=== PATIENT | female | born 1985 | race Caucasian/White ===

== ENCOUNTER 2023-04-15 08:32 | Outpatient (RCR) | payer BC, SELFPAY ==
[2023-04-15 22:58] LABS: HCG Quantitative 10411 mIU/mL
[2023-04-17 10:32] LABS: HCG Quantitative 17710 mIU/mL
== END 2023-05-13 16:01 | disposition home or self-care (01) ==
LOC: LAB 08:32
PROVIDERS: Visit Provider Obstetrics & Gynecology
DX: N92.6 Irregular menstruation, unspecified (principal)
CPT/HCPCS: 36415; 84702

== ENCOUNTER 2023-05-01 10:06 | Outpatient (OUT) | payer BC, SELFPAY ==
--- NOTE | 2023-05-01 10:09 | US_ITS ---
[address] [address] Patient Name: BONILLA KUMAR MRN: [id number] date: 1985 Sex: F Assigned Patient Location: US Current Patient Location: US Accession/Order Number: [id number] Exam Date: 05/01/2023 10:09 Report Date: 05/01/2023 11:06 At the request of: MOUNA ASENCIO Procedure: US OB transvaginal EXAMINATION: US OB transvaginal HISTORY: MISSED PERIOD COMPARISON: No relevant comparison available. FINDINGS: GESTATIONAL SAC: Present. YOLK SAC: Present. POLE: Present, with questionable nuchal thickening (2 mm). CARDIAC: Present. UTERUS: Normal size and appearance. OVARIES: Right: Normal. Left: Normal. CERVIX: 5 cm in length and closed. CUL-DE-SAC: Normal. OTHER: None. AGE BY LMP: 7 weeks 4 days LEON BY LMP: 12/14/2023 AGE BY US CRL: 8 weeks 1 day LEON BY US CRL: 12/10/2023 IMPRESSION: 1. Single live intrauterine . 2. Additional nuchal thickening. Follow-up recommended. Electronically authenticated by: LUIS MANUEL VEGA Date: 05/01/2023 11:06
== END 2023-05-01 10:07 | disposition home or self-care (01) ==
LOC: US 10:07
PROVIDERS: Visit Provider Obstetrics & Gynecology
DX: Z34.91 Encounter for supervision of normal pregnancy, unspecified, first trimester (principal); Z3A.08 8 weeks gestation of pregnancy; N92.6 Irregular menstruation, unspecified
CPT/HCPCS: 76817

== ENCOUNTER 2023-06-02 12:39 | Outpatient (OUT) | payer BC, SELFPAY ==
[2023-06-02 13:17] LABS: Basophils Percent Auto 0.4 % (0.2-2.0); Eosinophils Absolute Auto 0.2 10^3/uL (0.0-0.7); Eosinophils Percent Auto 2.1 % (0.9-7.0); Hematocrit 35.3 % (36.0-48.0); Hemoglobin 11.9 g/dL (12.0-16.0); Immature Granulocytes Abs Auto 0.02 10^3/uL (0.00-0.03); Immature Granulocytes Pct Auto 0.2 % (0.0-0.5); Lymphocytes Absolute Auto 1.6 10^3/uL (1.2-3.8); Lymphocytes Percent Auto 19.3 % (20.5-60.0); Mean Corpuscular HGB Conc 33.7 g/dL (29.9-35.2); Mean Corpuscular Hemoglobin 29.7 pg (26.7-34.0); Mean Platelet Volume 9.4 fL (9.5-13.5); Monocytes Absolute Auto 0.4 10^3/uL (0.3-0.8); Monocytes Percent Auto 4.3 % (1.7-12.0); Neutrophils Percent Auto 73.7 % (43.0-75.0); Platelet Count 220 10^3/uL (150-450); Red Blood Count 4.01 10^6/uL (4.20-5.40); Red Cell Distribution Width 14.4 % (11.0-15.0); White Blood Count 8.1 10^3/uL (4.0-11.0)
[2023-06-02 14:02] LABS: Thyroid Stimulating Hormone 1.933 uIU/mL (0.358-3.740)
[2023-06-02 14:48] LABS: Estimated Average Glucose 94 mg/dL; Glycohemoglobin A1C 4.9 % (4.5-6.2)
[2023-06-03 06:14] LABS: HBsAg Screen Negative (Negative)
[2023-06-03 10:14] LABS: Rubella Antibodies, IgG 2.41 index (Immune >0.99)
[2023-06-03 11:23] LABS: Rapid Plasma Reagin, Quant Non Reactive (NonRea<1:1)
[2023-06-04 08:32] LABS: HCV Ab Non Reactive (Non Reactive); HIV Ab/p24 Ag Screen Non Reactive (Non Reactive)
== END 2023-06-02 12:40 | disposition home or self-care (01) ==
LOC: LAB 12:41
PROVIDERS: Visit Provider Obstetrics & Gynecology
DX: Z34.80 Encounter for supervision of other normal pregnancy, unspecified trimester (principal); Z31.430 Encounter of female for testing for genetic disease carrier status for procreative management
CPT/HCPCS: 36415; 83036; 84443; 85025; 86592; 86706; 86762; 86803; 86850; 86900; 86901; 87086; 87389

== ENCOUNTER 2023-09-23 13:12 | Outpatient (OUT) | payer BC, SELFPAY ==
--- NOTE | 2023-09-23 13:18 | US_ITS ---
The [address] [address] Patient Name: BONILLA KUMAR MRN: [id number] date: 1985 Sex: F Assigned Patient Location: US Current Patient Location: US Accession/Order Number: [id number] Exam Date: 09/23/2023 13:19 Report Date: 09/23/2023 23:58 At the request of: MOUNA ASENCIO Procedure: US OB growth EXAMINATION: US OB growth HISTORY: SIZE INCONSISTENT WITH DATES COMPARISON: No relevant comparison available. FINDINGS: Heart Rate: 151.0 bpm Number: 1.0 Position: CEPHALIC Amniotic Fluid Volume: 21.9 cm (between 5th and 95th percentile) Maximum Vertical Pocket: 7.9 cm BIOMETRY: BPD: 7.8 cm cm; 31 weeks 2 days; >97% HC: 27.4 cmcm; 30 weeks 0 days ; 71% AC: 25.0 cm cm; 29 weeks 1 days; 71% FL: 5.4 cm cm; 28 weeks 5 days; 48% EFW: 1362.2 grams; 75% FL/AC: 21.7 FL/BPD: 69.7 HC/AC: 1.1 GESTATIONAL AGE: Age by EDC: 28 weeks 2 days LEON by EDC: 12/14/2023 Age by US: 29 weeks 6 days LEON by US: 12/03/2023 US/US OB growth IMPRESSION: 1. Single live intrauterine with growth detailed above. 2. BPD is greater than 97th percentile. Electronically authenticated by: LUIS MANUEL VEGA Date: 09/23/2023 23:58
== END 2023-09-23 13:13 | disposition home or self-care (01) ==
LOC: US 13:12
PROVIDERS: Visit Provider Obstetrics & Gynecology
DX: O26.843 Uterine size-date discrepancy, third trimester (principal); Z3A.28 28 weeks gestation of pregnancy
CPT/HCPCS: 76816

== ENCOUNTER 2023-09-24 08:13 | Outpatient (OUT) | payer BC, SELFPAY ==
[2023-09-24 09:04] LABS: Basophils Percent Auto 0.3 % (0.2-2.0); Eosinophils Absolute Auto 0.1 10^3/uL (0.0-0.7); Eosinophils Percent Auto 1.4 % (0.9-7.0); Hematocrit 28.4 % (36.0-48.0); Hemoglobin 9.1 g/dL (12.0-16.0); Immature Granulocytes Abs Auto 0.02 10^3/uL (0.00-0.03); Immature Granulocytes Pct Auto 0.3 % (0.0-0.5); Mean Corpuscular Hemoglobin 29.7 pg (26.7-34.0); Mean Corpuscular Volume 92.8 fL (81.0-99.0); Monocytes Absolute Auto 0.4 10^3/uL (0.3-0.8); Neutrophils Absolute Auto 5.8 10^3/uL (1.4-6.5); Platelet Count 161 10^3/uL (150-450); Red Blood Count 3.06 10^6/uL (4.20-5.40); Red Cell Distribution Width 12.4 % (11.0-15.0); White Blood Count 7.4 10^3/uL (4.0-11.0)
[2023-09-24 09:41] LABS: Glucose 1 Hour 120 mg/dL
== END 2023-09-24 08:14 | disposition home or self-care (01) ==
LOC: LAB 08:13
PROVIDERS: Visit Provider Obstetrics & Gynecology
DX: Z34.92 Encounter for supervision of normal pregnancy, unspecified, second trimester (principal)
CPT/HCPCS: 36415; 82950; 85025

== ENCOUNTER 2023-10-20 07:34 | Outpatient (OUT) | payer BC, SELFPAY ==
--- NOTE | 2023-10-20 08:58 | US_ITS ---
[address] [address] Patient Name: BONILLA KUMAR MRN: [id number] date: 1985 Sex: F Assigned Patient Location: US Current Patient Location: Accession/Order Number: [id number] Exam Date: 10/20/2023 09:25 Report Date: 10/20/2023 11:14 At the request of: MOUNA ASENCIO Procedure: US OB BPP w non-stress EXAMINATION: US OB BPP w non-stress HISTORY: Multigravida of advanced maternal age O09.523 COMPARISON: No relevant comparison available. TECHNIQUE: Ultrasound biophysical profile was performed in the radiology department. non-reactive stress testing was performed by nursing staff in the birthing center. FINDINGS: BREATHING MOVEMENTS: 2.0 GROSS BODY MOVEMENTS: 2.0 TONE: 2.0 QUALITATIVE AMNIOTIC FLUID VOLUME: 2.0 PRESENTATION: CEPHALIC HEART RATE: 155.2 bpm H.B./min AMNIOTIC FLUID VOLUME: 20.7 cm cm GESTATIONAL AGE: 32 weeks 1 days CONCLUSION: Total biophysical profile score: 8.0 Electronically authenticated by: ERROL VELA Date: 10/20/2023 11:14
--- NOTE | 2023-10-20 08:59 | US_ITS ---
[address] [address] Patient Name: BONILLA KUMAR MRN: [id number] date: 1985 Sex: F Assigned Patient Location: Current Patient Location: Accession/Order Number: [id number] Exam Date: 10/20/2023 09:25 Report Date: 10/20/2023 12:05 At the request of: MOUNA ASENCIO Procedure: US OB umbilical artery EXAMINATION: US OB umbilical artery HISTORY: Multigravida of advanced maternal age O09.523 COMPARISON: No relevant comparison available. TECHNIQUE: Duplex Doppler evaluation of the umbilical arteries. FINDINGS: position: Cephalic presentation, longitudinal lie Umbilical arteries: 2 Placenta: Posterior Heart rate: 133 beats minute Clinical age: 32 weeks 1 day Clinical LEON: 12/14/2023 Proximal umbilical artery PSV/EDV centimeters per second: 80.1/34. Resistive index 0.58, S/D ratio 2.4 Mid umbilical artery PSV/EDV centimeters per second: 99.9/47.2. Resistive index 0.53. S/D ratio 2.1 Distal umbilical artery PSV/EDV centimeters per second: 84.5/27.4. Resistive index 0.68. S/D ratio 3.1 Forward flow throughout diastole US/US OB umbilical artery IMPRESSION: Class 0. Normal exam Umbilical Artery: Class 0 = Normal umbilical artery blood velocity Class I = increased RI or PI, but still forward flow in diastole Class II = Absent end diastolic flow (AEDF) Class III = Reversal of end diastolic flow (REDF) Resistive Index (RI)<1 Systolic/Diastolic ratio (S:D): An S:D ratio of 2-3 after 34 wks is normal Systolic/Diastolic ratio (S:D): Age 16: 3.01 for the 10th percentile, 4.25 for the 50th percentile, 6.07 for the 90th percentile Age 20: 3.16 for the 10th percentile, 4.04 for the 50th percentile, 5.24 for the 90th percentile Age 24: 2.70 for the 10th percentile, 3.50 for the 50th percentile, 4.75 for the 90th percentile Age 28: 2.41 for the 10th percentile, 3.02 for the 50th percentile, 3.97 for the 90th percentile Age 30: 2.43 for the 10th percentile, 3.04 for the 50th percentile, 3.80 for the 90th percentile Age 32: 2.27 for the 10th percentile, 2.73 for the 50th percentile, 3.57 for the 90th percentile Age 34: 2.08 for the 10th percentile, 2.52 for the 50th percentile, 3.41 for the 90th percentile Age 36: 1.96 for the 10th percentile, 2.35 for the 50th percentile, 3.15 for the 90th percentile Age 38: 1.89 for the 10th percentile, 2.24 for the 50th percentile, 3.10 for the 90th percentile Age 40: 1.88 for the 10th percentile, 2.22 for the 50th percentile, 2.68 for the 90th percentile Age 41: 1.93 for the 10th percentile, 2.21 for the 50th percentile, 2.55 for the 90th percentile Age 42: 1.91 for the 10th percentile, 2.51 for the 50th percentile, 3.21 for the 90th percentile Uteroplacental Artery: Resistive Index (RI): Normal=<0.55 High Resistance=Bilateral notches (after 26 wks) and RI>0.55. Unilateral notches (after 26 wks) and RI>0.65 Systolic/Diastolic ratio (S:D) = 2-3 is normal after 32 weeks. Electronically authenticated by: ERROL VELA Date: 10/20/2023 12:05
[2023-10-20 09:10] VITALS: BP 109/66; PULSE 86
== END 2023-10-20 10:10 | disposition home or self-care (01) ==
LOC: US 07:35 → FBC 08:57
PROVIDERS: Visit Provider Obstetrics & Gynecology
DX: O09.523 Supervision of elderly multigravida, third trimester (principal); Z3A.32 32 weeks gestation of pregnancy
CPT/HCPCS: 76818; 76820

== ENCOUNTER 2023-10-23 07:05 | Outpatient (OUT) | payer BC, SELFPAY ==
[2023-10-23 14:14] VITALS: BP 117/65; PULSE 99; TEMP 36.2
== END 2023-10-23 14:36 | disposition home or self-care (01) ==
LOC: FBCO 07:06 → FBC 14:04
PROVIDERS: Visit Provider Obstetrics & Gynecology
DX: O26.849 Uterine size-date discrepancy, unspecified trimester (principal); O09.523 Supervision of elderly multigravida, third trimester
CPT/HCPCS: 59025

== ENCOUNTER 2023-10-27 07:46 | Outpatient (OUT) | payer BC, SELFPAY ==
--- NOTE | 2023-10-27 07:50 | US_ITS ---
[address] [address] Patient Name: BONILLA KUMAR MRN: [id number] date: 1985 Sex: F Assigned Patient Location: [facility] Current Patient Location: [facility] Accession/Order Number: [id number] Exam Date: 10/27/2023 07:55 Report Date: 10/27/2023 08:28 At the request of: MOUNA ASENCIO Procedure: US OB BPP w non-stress EXAMINATION: US OB BPP w non-stress HISTORY: Multigravida of advanced maternal age O09.523 COMPARISON: No relevant comparison available. TECHNIQUE: Ultrasound biophysical profile was performed in the radiology department. non-reactive stress testing was performed by nursing staff in the birthing center. FINDINGS: BREATHING MOVEMENTS: 2.0 GROSS BODY MOVEMENTS: 2.0 TONE: 2.0 QUALITATIVE AMNIOTIC FLUID VOLUME: 2.0 PRESENTATION: CEPHALIC HEART RATE: 139.9 bpm H.B./min AMNIOTIC FLUID VOLUME: 15.0 cm cm GESTATIONAL AGE: 33 weeks 1 days CONCLUSION: Total biophysical profile score: 8.0 Electronically authenticated by: ERROL VELA Date: 10/27/2023 08:28
--- NOTE | 2023-10-27 07:51 | US_ITS ---
[address] [address] Patient Name: BONILLA KUMAR MRN: [id number] date: 1985 Sex: F Assigned Patient Location: [facility] Current Patient Location: Accession/Order Number: [id number] Exam Date: 10/27/2023 07:55 Report Date: 10/27/2023 10:39 At the request of: MOUNA ASENCIO Procedure: US OB umbilical artery EXAMINATION: US OB umbilical artery HISTORY: Multigravida of advanced maternal age O09.523 COMPARISON: No relevant comparison available. TECHNIQUE: Duplex Doppler evaluation of the umbilical arteries. FINDINGS: position: Cephalic presentation, longitudinal lie Umbilical arteries: 2 Amniotic fluid: 15.0 cm, normal Heart rate: 132 BPM Proximal umbilical artery: PSV/EDV: 115/35 cm/s resistive index 0.7. Ratio: 3.3 Mid umbilical artery PSV/EDV: 87/36 cm/s. Resistive index 0.55. Ratio 2.4 Distal umbilical artery PSV/EDV: 87/37 cm/s. Resistive index 0.57. Ratio 2.3 Forward flow identified throughout diastole Clinical age: 33 weeks 1 day US/US OB umbilical artery IMPRESSION: Normal exam. Class 0 Umbilical Artery: Class 0 = Normal umbilical artery blood velocity Class I = increased RI or PI, but still forward flow in diastole Class II = Absent end diastolic flow (AEDF) Class III = Reversal of end diastolic flow (REDF) Resistive Index (RI)<1 Systolic/Diastolic ratio (S:D): An S:D ratio of 2-3 after 34 wks is normal Systolic/Diastolic ratio (S:D): Age 16: 3.01 for the 10th percentile, 4.25 for the 50th percentile, 6.07 for the 90th percentile Age 20: 3.16 for the 10th percentile, 4.04 for the 50th percentile, 5.24 for the 90th percentile Age 24: 2.70 for the 10th percentile, 3.50 for the 50th percentile, 4.75 for the 90th percentile Age 28: 2.41 for the 10th percentile, 3.02 for the 50th percentile, 3.97 for the 90th percentile Age 30: 2.43 for the 10th percentile, 3.04 for the 50th percentile, 3.80 for the 90th percentile Age 32: 2.27 for the 10th percentile, 2.73 for the 50th percentile, 3.57 for the 90th percentile Age 34: 2.08 for the 10th percentile, 2.52 for the 50th percentile, 3.41 for the 90th percentile Age 36: 1.96 for the 10th percentile, 2.35 for the 50th percentile, 3.15 for the 90th percentile Age 38: 1.89 for the 10th percentile, 2.24 for the 50th percentile, 3.10 for the 90th percentile Age 40: 1.88 for the 10th percentile, 2.22 for the 50th percentile, 2.68 for the 90th percentile Age 41: 1.93 for the 10th percentile, 2.21 for the 50th percentile, 2.55 for the 90th percentile Age 42: 1.91 for the 10th percentile, 2.51 for the 50th percentile, 3.21 for the 90th percentile Uteroplacental Artery: Resistive Index (RI): Normal=<0.55 High Resistance=Bilateral notches (after 26 wks) and RI>0.55. Unilateral notches (after 26 wks) and RI>0.65 Systolic/Diastolic ratio (S:D) = 2-3 is normal after 32 weeks. Electronically authenticated by: ERROL VELA Date: 10/27/2023 10:39
[2023-10-27 08:16] VITALS: BP 120/70; PULSE 97; TEMP 36.4
== END 2023-10-27 08:37 | disposition home or self-care (01) ==
LOC: US 07:46 → FBC 07:51
PROVIDERS: Visit Provider Obstetrics & Gynecology
DX: O09.523 Supervision of elderly multigravida, third trimester (principal); Z3A.33 33 weeks gestation of pregnancy
CPT/HCPCS: 76818; 76820

== ENCOUNTER 2023-10-30 07:04 | Outpatient (OUT) | payer BC, SELFPAY ==
--- OUTSIDE RECORDS SUMMARY | 2023-10-30 07:07 | XMS_ITS | CCD ---
Author Name Unknown Address [address] [place] [address] Organization [facility] Care Team Providers Care Prosthetics Lab Technician Name Role Phone DEVIN LAM Primary Care Physician Devin Lam Unavailable LUIS M ., DR FREIRE Attending Unavailable LUIS M ., DR FREIRE Consulting Unavailable LUIS M ., DR FREIRE Primary Care Unavailable LUIS M ., DR FREIRE Admitting Unavailable LUIS M ., DR FREIRE Attending Unavailable LUIS M ., DR FREIRE Admitting Unavailable LUIS M ., DR FREIRE Consulting Unavailable LUIS M ., DR FREIRE Primary Care Unavailable ZIEBER, DR LUIS MANUEL Andrade Consulting Unavailable LUIS M ., DR FREIRE Attending Unavailable LUIS M ., DR FREIRE Primary Care Unavailable LUIS M ., DR FREIRE Consulting Unavailable LUIS M ., DR FREIRE Admitting Unavailable LUIS M ., DR FREIRE Attending Unavailable LUIS M ., DR FREIRE Admitting Unavailable LUIS M ., DR FREIRE Primary Care Unavailable LUIS M ., DR FREIRE Consulting Unavailable LUIS M ., DR FREIRE Consulting Unavailable LUIS M ., DR FREIRE Primary Care Unavailable LUIS M ., DR FREIRE Admitting Unavailable LUIS M ., DR FREIRE Attending Unavailable LUIS M ., DR FREIRE Admitting Unavailable LUIS M ., DR FREIRE Attending Unavailable LUIS M ., DR FREIRE Consulting Unavailable LUIS M ., DR FREIRE Primary Care Unavailable LUIS M ., DR FREIRE Attending Unavailable LUIS M ., DR FREIRE Primary Care Unavailable LUIS M ., DR FREIRE Admitting Unavailable LUIS M ., DR FREIRE Consulting Unavailable LUIS M ., DR FREIRE Primary Care Unavailable LUIS M ., DR FREIRE Attending Unavailable LUIS M ., DR FREIRE Admitting Unavailable LUIS M ., DR FREIRE Consulting Unavailable RUCHI FRANK Consulting Unavailable KIMMY MALIK Consulting Unavailable EMMANUEL KHAN Consulting Unavailable HIGINIO LEDESMA Consulting Unavailable ARACELI MCKENZIE Attending Unavailable MOUNA ANGEL Attending Unavailable MOUNA ANGEL Attending Unavailable MOUNA ANGEL Attending Unavailable Allergies Allergy Classification Reported Allergen(s) Allergy Type Date of Onset Reaction(s) Facility (12 sources) Acetaminophen / HYDROcodone; Translations: [acetaminophen-hy drocodone] Drug Allergy Nausea (finding) [facility] (13 sources) Banana Extract; Translations: [Banana] Drug Allergy 09-10-20 20 Itching (finding) [facility] (8 sources) Melon; Translations: [melon] Drug allergy 09-10-20 Itching (finding) [facility] (5 sources) Melon Propensity to adverse reactions Unknown [employer] Other (1 source) Acetaminophen / HYDROcodone Drug Allergy 09-10-20 20 [facility] (1 source) Acetaminophen / HYDROcodone; Translations: [HYDROCODONE-ACET AMINOPHEN] Drug Allergy 04-10-20 21 [facility] Medications Current Medications Medication Drug Class(es) Dates Sig (Normalized) Sig (Original) acetaminophen 300 mg / codeine phosphate 30 mg oral tablet (4 sources) Opioid Agonist Start: 03-09-2015 Tylenol with Codeine 300 mg-30 mg Tab 1 tab(s), Oral, q4hr Pain - Mild, 30 tab(s), Refill(s) 0 Start Date: 03/09/15 Status: Ordered amoxicillin 500 mg oral capsule (4 sources) Penicillin-class Antibacterial Start: 02-25-2022 End: 05-26-2022 take 1 capsule by mouth once daily amoxicillin 500 mg Cap 500 mg = 1 cap(s), Oral, Daily, X 90 day(s), # 90 cap(s), Refills(s) 0, Pharmacy: [facility] [id number] [facility], 162, cm, 02/25/22 14:21:00 EDT, Height/Length Dosing, 75, kg, 02/25/22 14:21:00 EDT, Weight Dosing Start Date: 02/25/22 Stop Date: 05/26/22 Status: Ordered azithromycin 250 mg oral tablet (2 sources) Macrolide Antimicrobial Start: 01-19-2023 Zithromax Z-Higinio 250 MG as directed Orally Jan, Active Calcium (2 sources) Phosphate Binder, Calcium Start: 03-09-2015 Calcium 500+D oral tablet, chewable Refill(s) 0 Start Date: 03/09/15 Status: Ordered cephalexin 500 mg oral capsule (1 source) Cephalosporin Antibacterial Start: 02-04-2022 take 1 capsule by mouth once daily Keflex 500 mg Cap See Instructions, 1 cap po day before procedure and 1 cap po after procedure, # 2 cap(s), Refills(s) 0, Pharmacy: [place] [id number] [facility], 162, cm, 02/04/22 14:57:00 EDT, Height/Length Dosing, 75, kg, 02/04/22 14:57:00 EDT, Weight Dosing Start Date: 02/04/22 Status: Ordered citalopram 20 mg oral tablet (10 sources) Serotonin Reuptake Inhibitor Start: 02-04-2022 take 1 mg by mouth once daily CeleXA 20 mg Tab mg tab(s), Oral, Daily, Refills(s) 0 Start Date: 02/04/22 Status: Ordered take 0.5 tablet by m [facility] every twenty-four hours Citalopram Hydrobromide 20 MG 0.5 tablet Orally Once a day Active Docusate (9 sources) Start: 02-04-2022 take 1 mg by mouth twice daily Dulcolax Stool Softener mg, Oral, BID, Refills(s) 0 Start Date: 02/04/22 Status: Ordered Start: 03-09-2015 take 1 capsule by mo [facility] twice daily as needed for constipation Colace 100 mg Cap 100 mg = 1 cap(s), Oral, BID, PRN Constipation, # 60 cap(s), Refills(s) 2 Start Date: 03/09/15 Status: Ordered {5 (ethinyl estradiol 0.02 MG / norethindrone acetate 1 MG Oral Tablet) / 7 (ethinyl estradiol 0.03 MG / norethindrone acetate 1 MG Oral Tablet) / 9 (ethinyl estradiol 0.035 MG / norethindrone acetate 1 MG Oral Tablet) / 7 (ferrous fumarate 75 MG Oral Tablet) } Pack (2 sources) Estrogen take 1 tablet by mouth every twenty-four hours Norethindron-Ethinyl Estrad-Fe 1-20/1-30/1-35 MG-MCG 1 tablet Orally Once a day Active ferrous sulfate 325 mg oral tablet (4 sources) Start: 2014 take 1 tablet by mouth twice daily ferrous sulfate 325 mg Tab 325 mg = 1 tab(s), Oral, BID, # 60 tab(s), Refills(s) 1 Start Date: 03/11/15 Status: Ordered ibuprofen 600 mg oral tablet (4 sources) Nonsteroidal Anti-inflammatory Drug Start: 2014 take 1 tablet by mouth every four hours as needed for pain Motrin 600 mg Tab 600 mg = 1 tab(s), Oral, q4hr, PRN Pain, # 60 tab(s), Refills(s) 2 Start Date: 03/09/15 Status: Ordered Multi Vitamin+ (5 sources) Start: 2021 Multi Vitamin+ Refill(s) 0 Start Date: 02/03/22 Status: Ordered nitrofurantoin, macrocrystals 25 mg / nitrofurantoin, monohydrate 75 mg oral capsule (6 sources) Nitrofuran Antibacterial Start: 2021 take 1 mg by mouth twice daily Macrobid 100 mg Cap mg cap(s), Oral, BID, Refills(s) 0 Start Date: 06/25/22 Status: Ordered take 1 capsule by mo [facility] once daily at bedtime Macrobid 100 MG 1 capsule at bedtime wit h food Orally Once a day Active Norethindron-Ethinyl Estrad-Fe 1-20/1-30/1-35 MG-MCG (3 sources) take 1 tablet by mouth once daily Norethindron-Ethinyl Estrad-Fe 1-20/1-30/1-35 MG-MCG 1 tablet Orally Once a day Active phentermine hydrochloride 37.5 mg oral capsule (7 sources) Sympathomimetic Amine Anorectic Start : 06-25 take 1 capsule by mouth once daily Adipex-P 37.5 mg oral capsule 37.5 mg = 1 cap(s), Oral, Daily, Refills(s) 0 Start Date: 06/25/22 Status: Ordered Start: 06-18-2022 take 1 tablet by nathalie th every twenty-four hours Adipex-P 37.5 MG 1 tablet Orally Once a day for 30 days Jun, Active Start: 05-13-2022 take 1 tablet by nathalie th every twenty-four hours Adipex-P 37.5 MG 1 tablet Orally Once a day for 30 days May, Active Start: 04-16-2022 take 1 tablet by nathalie th every twenty-four hours Adipex-P 37.5 MG 1 tablet Orally Once a day for 30 days Apr, Active Progesterone (5 sources) Progesterone Start: 02-04-2022 take 1 mg by mouth once daily Progesterone (micronized) mg, Oral, Daily, Refills(s) 0 Start Date: 02/04/22 Status: Ordered sulfADIAZINE 500 mg oral tablet (1 source) Sulfonamide Antibacterial sulfADIAZINE 500 MG as directed Orally Active sulfamethoxazole 800 mg / trimethoprim 160 mg oral tablet (2 sources) Dihydrofolate Reductase Inhibitor Antibacterial, Sulfonamide Antimicrobial Start: 04-15-2022 End: 04-25-2022 take 1 tablet by mouth twice daily Bactrim DS 800 mg-160 mg Tab 1 tab(s), Oral, BID for 10 day(s), 20 tab(s), Refill(s) 0, [facility] [id number] [facility], 162, cm, 02/25/22 14:21:00 EDT, Height/Length Dosing, 75, kg, 02/25/22 14:21:00 EDT, Weight Dosing Start Date: 04/15/22 Stop Date: 04/25/22 Status: Ordered Vitafol Ultra oral capsule (4 sources) Start: 03-09-2015 Vitafol Ultra oral capsule 1 cap(s), Oral, Daily, 90 cap(s), Refill(s) 4 Start Date: 03/09/15 Status: Ordered Problems Active Problems Problem Classification Problem Date Documented Date Episodic/Chronic Anxiety disorders (12 sources) Mixed anxiety and depressive disorder; Translations: [Other specified anxiety disorders] Onset: 04-16-2022 Resolved: 06-18-2022 Chronic Calculus of urinary tract (7 sources) Kidney stone; Translations: [Calculus of kidney] Onset: 06-25-2022 02-25-2022 Episodic Cardiac dysrhythmias (10 sources) Tachycardia; Translations: [Tachycardia, unspecified] Onset: 04-16-2022 Resolved: 04-16-2022 02-03-2022 Episodic Disorders of lipid metabolism (5 sources) Hyperlipidemia; Translations: [Hyperlipidemia, unspecified] Chronic Immunizations and screening for infectious disease (2 sources) Encounter for screening for human papillomavirus (HPV); Translations: [Contact with and (suspected) exposure to infections with a predominantly sexual mode of transmission] Onset: 11-14-2022 Episodic Menstrual disorders (4 sources) Amenorrhea, unspecified; Translations: [AMENORRHEA UNSPECIFIED] Onset: 11-12-2022 Chronic Other complications of (5 sources) Missed ; Translations: [MISSED ] Onset: 11-16-2022 Episodic Other female genital disorders (1 source) Other specified noninflammatory disorders of vagina; Translations: [OTH SPEC NONINFLAMMATORY D/O VAGINA] Onset: 11-14-2022 Episodic Other nutritional; endocrine; and metabolic disorders (5 sources) Obesity; Translations: [Obesity, unspecified] Chronic Other nutritional; endocrine; and metabolic disorders (5 sources) Body mass index 30+ - obesity; Translations: [Body mass index (BMI) 30.0-30.9, adult] Chronic Other nutritional; endocrine; and metabolic disorders (3 sources) Obesity, unspecified Onset: 04-16-2022 Resolved: 06-18-2022 Chronic Other nutritional; endocrine; and metabolic disorders (2 sources) Body mass index (BMI) 30.0-30.9, adult Onset: 04-16-2022 Resolved: 05-13-2022 Chronic Other nutritional; endocrine; and metabolic disorders (3 sources) Body mass index 25-29 - overweight; Translations: [Body mass index (BMI) 28.0-28.9, adult] Episodic Other screening for suspected conditions (not mental disorders or infectious disease) (5 sources) Encounter for screening for malignant neoplasm of cervix; Translations: [ENC SCREENING MALIG NEOPLASM CERV] Onset: 11-12-2022 Episodic Otitis media and related conditions (1 source) Acute suppurative otitis media with spontaneous rupture of ear drum, right ear Episodic Residual codes; unclassified (7 sources) Insomnia 02-03-2022 Episodic Residual codes; unclassified (4 sources) Other specified postprocedural states; Translations: [OTH SPECIFIED POSTPROCEDURAL STATES] Onset: 12-19-2022 Episodic Residual codes; unclassified (2 sources) 32 weeks gestation of ; Translations: [32 weeks gestation of ] Onset: 10-23-2023 Episodic Unclassified (4 sources) Streptococcus agalactiae (organism) 03-09-2015 Unclassified (1 source) CONTACT W/AND (SUSP) EXPOS COVID-19; Translations: [CONTACT W/AND (SUSP) EXPOS COVID-19] Onset: 11-16-2022 Urinary tract infections (20 sources) Urinary tract infectious disease; Translations: [Urinary tract infection, site not specified] Onset: 03-06-2022 Resolved: 04-16-2022 Episodic Viral infection (4 sources) Human papilloma virus infection 03-08-2015 Episodic Past or Other Problems Problem Classification Problem Date Documented Da te Episodic/Chronic Other nutritional; endocrine; and metabolic disorders (1 source) Body mass index (BMI) 28.0-28.9, adult Onset: 06-18-2022 Resolved: 06-18-2022 Episodic Other skin disorders (1 source) Epidermal cyst Onset: 05-13-2022 Resolved: 05-13-2022 Episodic Unclassified (4 sources) Onset: 07-10-2014 Resolved: 03-09-2015 05-17-2015 Results Test Name Value Interpretation Reference Range Facility Office Visiton 10-23-2023 Follow-up visit [id number] Jessa Chatman 1985 F Date Provider Department Center 10/23/2023 [facility] No family history on file Level of Service:18612 [place] OFFICE/OUTPATIENT ESTABLISHED MOD MDM 30-39 MIN Normal [facility] PROGRESSon 10-23-2023 Beta HCG ( test) Ql (U) D/w pt risks vs benefits of metoprolol during - Metoprolol has been associated with reduced growth of the baby. It is not clear if this happens because of the metoprolol, the health condition that is being treated, other factors, or a combination of factors. Metoprolol use in late may cause the baby to have symptoms such as slowed heart rate and low blood sugar. She voiced understanding of risks. Normal [facility] PREG QUANT HCGon 12-19-2022 HCG QUANT 5 mIU/mL Normal [facility] Comment on above: Performed By: #### P REGQNT #### [facility] [address] [place] [address] Dr. Fadi Meza HCG RANGE SEE BELOW Normal [facility] Comment on above: Result Comment: 5-50 0.2-1 WEEK 50-500 1-2 WEEKS 100-5,000 2-3 WEEKS 500-10,000 3-4 WEEKS 1,000-50,000 4-5 WEEKS 10,000-100,000 5-6 WEEKS 15,000-200,000 6-8 WEEKS 10,000-100,000 2-3 MONTHS Performed By: #### P REGQNT #### [facility] [address] [place] [address] Dr. Fadi Meza PREG QUANT HCGon 12-05-2022 HCG QUANT 43 mIU/mL Normal [facility] Comment on above: Performed By: #### P REGQNT #### [facility] [address] [place] [address] Dr. Fadi Meza HCG RANGE SEE BELOW Normal [facility] Comment on above: Result Comment: 5-50 0.2-1 WEEK 50-500 1-2 WEEKS 100-5,000 2-3 WEEKS 500-10,000 3-4 WEEKS 1,000-50,000 4-5 WEEKS 10,000-100,000 5-6 WEEKS 15,000-200,000 6-8 WEEKS 10,000-100,000 2-3 MONTHS Performed By: #### P REGQNT #### [facility] [address] [place] [address] Dr. Fadi Meza CBC AUTO DIFFon 11-19-2022 BASO # 0.0 103/ul Normal 0.0-0.1 [facility] Comment on above: Performed By: #### C VDTBH #### [facility] [address] [place] [address] Dr. Fadi Meza Basophils/100 WBC (Bld) 0.7 % Normal 0.2-2.0 [facility] Comment on above: Performed By: #### C VDTBH #### [facility] [address] [place] [address] Dr. Fadi Meza EO # 0.1 103/ul Normal 0.0-0.7 [facility] Comment on above: Performed By: #### C VDTBH #### [facility] [address] [place] [address] Dr. Fadi Meza Eosinophils/100 WBC (Bld) 2.1 % Normal 0.9-7.0 [facility] Comment on above: Performed By: #### C VDTBH #### [facility] [address] [place] [address] Dr. Fadi Meza Erythrocyte distribution width (RBC) [Ratio] 13.7 % Normal 11.0-15.0 [facility] Comment on above: Performed By: #### C VDTBH #### [facility] [address] [place] [address] Dr. Fadi Meza Hematocrit (Bld) [Volume fraction] 36.9 % Normal 36.0-48.0 [facility] Comment on above: Performed By: #### C VDTBH #### [facility] [address] [place] [address] Dr. Fadi Meza Hemoglobin (Bld) [Mass/Vol] 11.8 g/dL Critically low 12.0-16.0 [facility] Comment on above: Performed By: #### C VDTBH #### [facility] [address] [place] [address] Dr. Fadi Meza IG # 0.01 10e3/ul Normal 0.00-0.03 [facility] Comment on above: Performed By: #### C VDTBH #### [facility] [address] [place] [address] Dr. Fadi Meza IG % 0.2 % Normal 0.0-0.5 [facility] Comment on above: Performed By: #### C VDTBH #### [facility] [address] [place] [address] Dr. Fadi Meza LYMPH # 1.3 103/ul Normal 1.2-3.8 [facility] Comment on above: Performed By: #### C VDTBH #### [facility] [address] [place] [address] Dr. Fadi Meza Lymphocytes/100 WBC (Bld) 29.3 % Normal 20.5-60.0 [facility] Comment on above: Performed By: #### C VDTBH #### [facility] [address] [place] [address] Dr. Fadi Meza MANUAL DIFF REQ NO Normal [facility] Comment on above: Performed By: #### C VDTBH #### [facility] [address] [place] [address] Dr. Fadi Meza MCH (RBC) [Entitic mass] 28.4 pg Normal 26.7-34.0 [facility] Comment on above: Performed By: #### C VDTBH #### [facility] [address] [place] [address] Dr. Fadi Meza MCHC (RBC) [Mass/Vol] 32.0 g/dL Normal 29.9-35.2 [facility] Comment on above: Performed By: #### C VDTBH #### [facility] [address] [place] [address] Dr. Fadi Meza MCV (RBC) [Entitic vol] 88.9 fL Normal 81.0-99.0 [facility] Comment on above: Performed By: #### C VDTBH #### [facility] [address] [place] [address] Dr. Fadi Meza MONO # 0.5 103/ul Normal 0.3-0.8 [facility] Comment on above: Performed By: #### C VDTBH #### [facility] [address] [place] [address] Dr. Fadi Meza Monocytes/100 WBC (Bld) 10.6 % Normal 1.7-12.0 [facility] Comment on above: Performed By: #### C VDTBH #### [facility] [address] [place] [address] Dr. Fadi Meza NEUT # 2.5 103/ul Normal 1.4-6.5 [facility] Comment on above: Performed By: #### C VDTBH #### [facility] [address] [address] [address] Fadi Meza Neutrophils/100 WBC (Bld) 57.1 % Normal 43.0-75.0 [facility] Comment on above: Performed By: #### C VDTBH #### [facility] [address] [address] [address] Fadi Meza Platelet mean volume (Bld) [Entitic vol] 9.4 fL Critically low 9.5-13.5 [facility] Comment on above: Performed By: #### C VDTBH #### [facility] [address] [place] [address] Dr. Fadi Meza PLT 210 103/ul Normal 150-450 [facility] Comment on above: Performed By: #### C VDTBH #### [facility] [address] [place] [address] Dr. Fadi Meza RBC 4.15 106/ul Critically low 4.20-5.40 [facility] Comment on above: Performed By: #### C VDTBH #### [facility] [address] [place] [address] Dr. Fadi Meza WBC 4.3 103/ul Normal 4.0-11.0 [facility] Comment on above: Performed By: #### C VDTBH #### [facility] [address] [place] [address] Dr. Fadi Meza PREG QUANT HCGon 11-19-2022 HCG QUANT 79559 mIU/mL Normal [facility] Comment on above: Performed By: #### P REGQNT #### [facility] [address] [place] [address] Dr. Fadi Meza HCG RANGE SEE BELOW Normal [facility] Comment on above: Result Comment: 5-50 0.2-1 WEEK 50-500 1-2 WEEKS 100-5,000 2-3 WEEKS 500-10,000 3-4 WEEKS 1,000-50,000 4-5 WEEKS 10,000-100,000 5-6 WEEKS 15,000-200,000 6-8 WEEKS 10,000-100,000 2-3 MONTHS Performed By: #### P REGQNT #### [facility] [address] [address] [address] Fadi Meza US PREG <14 WKSon 11-19-2022 US PREG <14 WKS Obstetrical ultrasound, 1st trimester CLINICAL: Evaluate prior to scheduled DANDC. TECHNIQUE: Transabdominal and transvaginal obstetrical ultrasound was performed. FINDINGS: Comparison: Ultrasound 11/12/2022 There is a single intrauterine fetus. [place]-rump length is 1.81 cm, correlating with gestational age 8 weeks 3 days. No heart tones are detected. IMPRESSION: 1. Single intrauterine nonviable gestation. No heart tones detected, and no growth since previous ultrasound 11/12/2022. Electronically authenticated by: RUCHI FRANK Date: 2022-11-19 13:17 Normal [facility] PAP ACOG PANEL 2: 30 to 65on 11-16-2022 . . Normal [facility] Comment on above: Result Comment: Perf ormed at: WB Performed By: #### [id number] #### [facility] [address] [address] [address] Fadi Meza Age Gdln ACOG Testing 30-65 Normal [facility] Comment on above: Performed By: #### [id number] #### [facility] [address] [address] [address] Fadi Meza DIAGNOSIS: Comment Normal [facility] Comment on above: Result Comment: NEGA TIVE FOR INTRAEPITHELIAL LESION OR MALIGNANCY. Performed at: WB Performed By: #### [id number] #### [facility] [address] [address] [address] Fadi Meza HPV Aptima Negative Normal Negative [facility] Comment on above: Result Comment: This nucleic acid amplification test detects fourteen high-risk HPV types (16,18,31,33,35,39,45,51,52,56,58,59,66,68) without differentiation. Performed at: =G Performed By: #### [id number] #### [facility] [address] [address] [address] Fadi Meza HPV Genotype Reflex Comment Normal [facility] Comment on above: Result Comment: Crit eria not met, HPV Genotype not performed. Performed at: WB Performed By: #### [id number] #### [facility] [address] [place] [address] Dr. Fadi Meza Methodology: Comment Normal [facility] Comment on above: Result Comment: This liquid based ThinPrep(R) pap test was screened with the use of an image guided system. Performed at: WB Performed By: #### [id number] #### [facility] [address] [place] [address] Dr. Fadi Meza Note: Comment Normal [facility] Comment on above: Result Comment: The Pap smear is a screening test designed to aid in the detection of premalignant and malignant conditions of the uterine cervix. It is not a diagnostic procedure and should not be used as the sole means of detecting cervical cancer. Both false-positive and false-negative reports do occur. . Performed at: WB Performed By: #### [id number] #### [facility] [address] [place] [address] Dr. Fadi Meza Performed by: Comment Normal [facility] Comment on above: Result Comment: Lexy [place], Casework Supervisor (ASCP) Performed at: WB Performed By: #### [id number] #### [facility] [address] [place] [address] Dr. Fadi Meza Specimen adequacy: Comment Normal [facility] Comment on above: Result Comment: Sati sfactory for evaluation. Endocervical and/or squamous metaplastic cells (endocervical component) are present. Performed at: WB Performed By: #### [id number] #### [facility] [address] [place] [address] Dr. Fadi Meza CHLAMYDIA/GONOCOCCUS TALAT (SW AB/URINE/PAPon 11-15-2022 Chlamydia trachomatis, TALAT Negative Normal Negative [facility] Comment on above: Performed By: #### C T/NGNA #### [facility] [address] [place] [address] Dr. Fadi Meza Neisseria gonorrhoeae, TALAT Negative Normal Negative [facility] Comment on above: Performed By: #### C T/NGNA #### [facility] [address] [address] [address] Fadi Meza VAGINITIS/VAGINOSIS DNA PROB Kel 11-14-2022 Shannon species Negative Normal Negative [facility] Comment on above: Performed By: #### V AGINT #### [facility] [address] [address] [address] Fadi Meza Gardnerella vaginalis Negative Normal Negative [facility] Comment on above: Performed By: #### V AGINT #### [facility] [address] [address] [address] Fadi Meza Trichomonas vaginalis Negative Normal Negative [facility] Comment on above: Performed By: #### V AGINT #### [facility] [facility] [address] [place] [address] Dr. Fadi Meza Covid-19 PCR (CVDTB)on SARS-CoV-2 (COVID-19) RNA TALAT+probe Ql (Unsp spec) Not detected Normal NOT DETECTED [facility] Comment on above: Result Comment: This test is not yet approved or cleared by the [place] FDA. When there are no FDA-approved or cleared tests available, and other criteria are met, FDA can make tests available under an emergency access mechanism called an Emergency Use Authorization (EUA). The EUA for this test is supported by the [place] [employer] of Health and Human Service's (HHS's) declaration that circumstances exist to justify the emergency use of in vitro diagnostics for the detection and/or diagnosis of the virus that causes COVID-19. This EUA will remain in effect (meaning this test can be used) for the duration of the COVID-19 declaration justifying emergency of IVDs, unless it is terminated or revoked by FDA (after which the test may no longer be used). When diagnostic testing is negative, the possibility of a false negative should be considered in the context of a patient's recent exposures and the presence of clinical signs and symptoms consistent with SARS-CoV-2. Performed By: #### C VDTBH #### [facility] [address] [place] [address] Dr. Fadi Meza US PREG TVon 11-12-2022 US PREG TV EXAMINATION: US PREG TV HISTORY: Missed period COMPARISON: No relevant comparison available. FINDINGS: GESTATIONAL SAC: Present and normal appearing. YOLK SAC: Present and normal appearing. POLE: Present and normal appearing. CARDIAC: Absent. UTERUS: Normal size and appearance. OVARIES: Right: Not seen. Left: Normal. OTHER: None. AGE BY LMP: 8 weeks 3 days LEON BY LMP: 06/21/2023 AGE BY US CRL: 8 weeks 5 days LEON BY US CRL: 06/19/2023 IMPRESSION: 1. Intrauterine 8 weeks 5 days by today's ultrasound with no detectable heartbeat. Dr. Angel was present at time of imaging and aware of findings. Electronically authenticated by: LUIS MANUEL VEGA Date: 2022-11-12 16:44 Normal [facility] CULTURE URINEon 09-01-2022 CULTURE URINE Culture Observations: LIGHT GROWTH OF MIXED GENITAL SIRIA. NO POTENTIAL PATHOGENS SEEN. Normal [facility] Comment on above: Performed By: #### U RCX #### [facility] [address] [place] [address] Dr. Fadi Meza UA RANDOMon 09-01-2022 Bilirubin Ql (U) Negative Normal NEGATIVE [facility] Comment on above: Performed By: #### U A #### [facility] [address] [place] [address] Dr. Fadi Meza Clarity (U) CLEAR Normal CLEAR [facility] Comment on above: Performed By: #### U A #### [facility] [address] [place] [address] Dr. Fadi Meza Color (U) YELLOW Normal YELLOW [facility] Comment on above: Performed By: #### U A #### [facility] [address] [place] [address] Dr. Fadi Meza Glucose Ql (U) Negative Normal NEGATIVE [facility] Comment on above: Performed By: #### U A #### [facility] [address] [place] [address] Dr. Fadi Meza Hemoglobin Ql (U) Negative Normal NEGATIVE [facility] Comment on above: Performed By: #### U A #### [facility] [address] [place] [address] Dr. Fadi Meza Ketones Ql (U) Negative Normal NEGATIVE [facility] Comment on above: Performed By: #### U A #### [facility] [address] [place] [address] Dr. Fadi Meza LEUKOCYTES Negative Normal NEGATIVE [facility] Comment on above: Performed By: #### U A #### [facility] [address] [place] [address] Dr. Fadi Meza Nitrite Ql (U) Negative Normal NEGATIVE [facility] Comment on above: Performed By: #### U A #### [facility] [address] [place] [address] Dr. Fadi Meza pH (U) 6.0 [pH] Normal 5-9 [facility] Comment on above: Performed By: #### U A #### [facility] [address] [place] [address] Dr. Fadi Meza SPEC GRAVITY 1.025 Normal 1.005-<=1.025 [facility] Comment on above: Performed By: #### U A #### [facility] [address] [place] [address] Dr. Fadi Meza UA PROTEIN Negative Normal NEGATIVE/ TRACE [facility] Comment on above: Performed By: #### U A #### [facility] [address] [place] [address] Dr. Fadi Meza Urobilinogen Qn (U) 0.2 {Shan'U}/dL Normal 0.2 - 1. 0 [facility] Comment on above: Performed By: #### U A #### [facility] [address] [place] [address] Dr. Fadi Meza CULTURE URINEon 08-02-2022 CULTURE URINE Isolate 1 Escherichia coli >100,000 cfu/mL of ORGANISM 1 Escherichia coli ANTIBIOTIC M.I.C RX STATUS Ampicillin >=32 R F Ampicillin/Sulbactam >=32 R F Piperacillin/Tazobac yeager <=4 S F Cefazolin 8 S F Ceftazidime <=1 S F Ceftriaxone <=1 S F Ertapenem <=0.5 S F Imipenem <=0.25 S F Amikacin <=2 S F Gentamicin >=16 R F Tobramycin 8 I F Ciprofloxacin <=0.25 S F Levofloxacin <=0.12 S F Nitrofurantoin <=16 S F Trimethoprim/Sulfame thoxazole >=320 R F Normal [facility] Comment on above: Performed By: #### C VDTB #### [facility] [address] [place] [address] Dr. Fadi Meza UTI ([facility])on 07-05-2022 UTI Report Diagnosis Info Invalid Interpretation Code [facility] Comment on above: Result Comment: Osmani riggs UTI Organisms Acinetobacter baumannii:NOTDETECTED Aerococcus urinae:NOTDETECTED Alloscardovia omnicolens:NOTDETECTED Shannon albicans:NOTDETECTED Shannon glabrata:NOTDETECTED Shannon parapsilosis:NOTDETECTED Corynebacterium riegelii:NOTDETECTED Corynebacterium urealyticum:NOTDETECTED Citrobacter amalonaticus:NOTDETECTED Citrobacter freundii:NOTDETECTED Citrobacter koseri:NOTDETECTED Enterobacter aerogenes:NOTDETECTED Enterobacter cloacae:NOTDETECTED Enterococcus faecalis:NOTDETECTED Enterococcus faecium:NOTDETECTED Escherichia coli:NOTDETECTED Klebsiella oxytoca:NOTDETECTED Klebsiella pneumoniae:NOTDETECTED Morganella morganii:NOTDETECTED Pantoea agglomerans:NOTDETECTED Proteus mirabilis:NOTDETECTED Providencia stuartii:NOTDETECTED Pseudomonas aeruginosa:NOTDETECTED Serratia marcescens:NOTDETECTED Staphylococcus aureus:NOTDETECTED Staphylococcus epidermidis:NOTDETECTED Staphylococcus haemolyticus:NOTDETECTED Mycobacterium tuberculosis:NOTDETECTED Mycoplasma genitalium:NOTDETECTED Mycoplasma hominis:NOTDETECTED Staphylococcus Lugdunensis:NOTDETECTED Staphylococcus saprophyticus:NOTDETECTED Streptococcus agalactiae:NOTDETECTED Streptococcus pasteuranus:NOTDETECTED Streptococcus pyogenes:NOTDETECTED Ureaplasma urealyticum:NOTDETECTED ABR Genes AmpC ?-lactamase (Class C):NOTDETECTED Carbapenemase (Class A):NOTDETECTED Carbapenemase (Class A):NOTDETECTED Carbapenemase (Class B):NOTDETECTED Carbapenemase (Class B):NOTDETECTED Carbapenemase (Class D):NOTDETECTED Extended Spectrum ?-lactamase (Class A):NOTDETECTED Extended Spectrum ?-lactamase (Class A):NOTDETECTED Extended-Spectrum-?-Lactamase:NOTDETECTED Extended-Spectrum-?-Lactamase:NOTDETECTED Extended-Spectrum-?-Lactamase:NOTDETECTED Extended-Spectrum-?-Lactamase:NOTDETECTED Macrolide Resistance:NOTDETECTED Quinolone Resistance:NOTDETECTED Vancomycin Resistance:NOTDETECTED ?-lactamase (class D):NOTDETECTED Quinolone Resistance:NOTDETECTED anuja integron-encoded metallo-?-lactamase:NOTDETECTED Culture Urine Electronically signed by : on: 07/04/2022 23:05:19 Performed By: #### 2 [id number] ####[facility] [address] [place] [id number] UTI ( Labs)on 07-03-2022 UTI Method of Extraction Voided Normal [facility] Comment on above: Performed By: #### 2 [id number] ####[facility] [address] [place] [address] UTI Number of Jars 1 Invalid Interpretation Code [facility] Comment on above: Performed By: #### 2 [id number] ####[facility] [address] [place] [address] UTI Specimen Urine Normal [facility] Comment on above: Performed By: #### 2 [id number] ####[facility] [address] [place] [address] UTI Type of Service Global Normal [facility] Comment on above: Performed By: #### 2 [id number] ####[facility] [address] [place] [address] Urology Office/Clinic Noteon 06-27-2022 Urology Office/Clinic Note Chief Complaint Pt is here for 4 month follow up HPI Staff Jessa is a 37 y.o. female here for 4 month follow up. Previous Dx: bilateral kidney stones, recurrent UTI. S/P cysto/UD done on 02/25/22. Pt states she just started menstrual cycle but states feels like UTI may still present. Pt is currently taking Macrobid 100mg qd, pt states nothing is helping and has been on different medications since 2019 for UTI. Dysuria: denies Incomplete bladder emptying: denies Hematuria: denies Frequency: yes Urgency: denies Nocturia: denies Stream: steady stream, some stop/go Leaking: denies Post void dripping: denies Wearing pads/ Depends: denies Urge incontinence: denies Stress incontinence: mild Incontinence without Sensory Awareness: denies Abdominal pain: denies Flank pain: denies Sexual complaints: _ HPI: Daughter born 09/10/20 (was a still ). During this developed recurrent UTI. Sx would be cloudiness and strong odor to urine. Maybe 1 UTI prior to that . Would take antibiotic for 10 days and then be off of it but could still tell urine cloudy and w/ odor. At one point was on a daily antibiotic for remainder of that . Was again by end of January 2021. Since last in Oct 2021 feels like she gets more typical UTI Sx. Now if not taking antibiotic has dysuria, frequent urination, overall discomfort in bladder, and cloudiness. Not as much odor anymore. Had been told by another provider in the past that vitamins could have been contributing to urine odor and Pt suspects this was the case. Cysto w/ UD 02/25/22 (Dr. Saez). After Cysto was the worst she has been. 2-3 days following Cysto worsening dysuria and discomfort in bladder. Tinge of blood on Tx w/ wiping after urination but was going on before Cysto. Has routine pap coming up this year. Denies urinary problems as a kid. Not a smoker. Urinates 4-5x/day when awake. History of Present Illness See staff HPI. Review of Systems PHQ Score Initial Depression Screen Score: 0 Denies fever and chills. Denies vaginal D/C. See staff HPI. Physical Exam Vitals & Measurements HR: 77(Peripheral) BP: 130/86 HT: 162 cm HT: 162.0 cm WT: 75 kg WT: 75.0 kg BMI: 28.58 General Appearance: alert , no acute distress, well nourished, well developed female. Abdomen: LLQ TTP, soft, non-distended Genitourinary: bladder nonpalpable, no flank pain. No posterior trunk rash. Assessment/Plan 1. Recurrent UTI (N39.0: Urinary tract infection, site not specified) Today large blood on UA (on day #2 of menses). Nitrite neg and trace WBC. PVR today is 52 mL. Currently on Macrobid 100 mg QD. Macrobid prescribed 04/30/22 - 100 mg BID x 10 days and then 100 mg QD x 60 days after the 10 days complete. If misses daily dose of Macrobid by 6 hours then has painful urination and more frequent more urination. Pt couldn't find combo pill w/ all 3 (probiotic, cranberry, D-mannose). Was taking 2 of the 3 supplements - probiotic (Up4 brand w/ red pkg) and cranberry pills but stopped when she started taking Macrobid. Never tried D-mannose. Discussed trying the D-mannose. Discussed methenamine as an option but LFTs would need monitored. Pt doesn't want to be taking meds like this. Pt doesn't want to be taking pills and would like to find out why she is getting recurrent UTIs. Pt agreeable w/ trying lactobacillus probiotic gel caps vaginally daily x 10 days followed by weekly x 10 weeks and can do booster weekly (to start when menses is finished). Discussed getting gel cap w/ >1 billion cfu lactobacillus (non-enteric coated). Pt also seems willing to try D-mannose. Pt is in a monogamous relationship so no STI testing ordered today. Denies Hx of HSV. Denies genital rash, erythema, lesions, swelling, abnormal drainage. Denies urinary problems as a kid. Not a smoker. Note: not and not actively trying to get . Currently on brith control pill. Always wipes front to back, just started wearing thongs and I recommend that she stop, denies hot tub use, showers, urinates after sex and sometimes before (no overt association of UTIs w/ sexual activity), occasionally uses [place] Jelly for intercourse, denies using spermicides or things w/ scent in vaginal/genital area, denies constipation (BM daily or QOD), uses an organic pad for menses (changes every 3 hours), drinks 32 oz x 2 water minimum (2-4 x 32 oz), denies Hx of diabetes including IFG and gestational diabetes. Timed voids and double voiding discussed. Pt indicates discussing possible ID referral w/ another provider for the recurrent UTIs. Agreed that this may be an option but would try some other things first including UTiD testing. Also, Pt denies getting other types of infections frequently. Pt inquired about cost for UTiD testing. She indicates has met her deductible this year. I advised her I would look into this further regarding cost and call her back. Low estrogen (more content not included)... Normal [facility] Comment on above: Result Comment: Elec tronically Signed By: Jalen Robledo\.br\Date and Time Signed: 06/27/22 00:01 EDT Ambulatory Visit Summaryon 0 06-25-2022 Ambulatory Visit Summary JESSA CHATMAN :1985 Visit Date:06/25/2022 Ambulatory Visit Instructions Your Diagnosis Recurrent UTI Bilateral kidney stones Tests Performed Urnls Dip Stick Auto w/o Microscopy POC 18312 Your Care Team Attending Physician - Jalen Robledo Primary Care Physician - DEVIN LAM DO This Is Your Medications List acetaminophen-codein e (Tylenol with Codeine 300 mg-30 mg Tab) docusate (Colace 100 mg Cap) ferrous sulfate (ferrous sulfate 325 mg Tab) ibuprofen (Motrin 600 mg Tab) multivitamin, (Vitafol Ultra oral capsule) nitrofurantoin (Macrobid 100 mg Cap) phentermine (Adipex-P 37.5 mg oral capsule) Procedures Performed Colonoscopy and biopsy of colon (2013), History of tonsillectomy (1989), Myringotomy (1989), Tonsillectomy (1989). Discharge Vitals Heart Rate (Peripheral) 77 Blood Pressure 130/86 Height 162 cm Height 162.0 cm Weight 75 kg Weight 75.0 kg BMI 28.58 Medications What How Much When Instructions Unchanged acetaminophen-codein e (Tylenol with Codeine 300 mg-30 mg Tab) 1 Tablets By Mouth Every 4 hours as needed for Pain - Mild Unchanged docusate (Colace 100 mg Cap) 1 Capsules By Mouth 2 times a day as needed for Constipation Unchanged ferrous sulfate (ferrous sulfate 325 mg Tab) 1 Tablets By Mouth 2 times a day Unchanged ibuprofen (Motrin 600 mg Tab) 1 Tablets By Mouth Every 4 hours as needed for Pain Unchanged multivitamin, (Vitafol Ultra oral capsule) 1 Capsules By Mouth Every day Unchanged nitrofurantoin (Macrobid 100 mg Cap) By Mouth 2 times a day Unchanged phentermine (Adipex-P 37.5 mg oral capsule) 1 Capsules By Mouth Every day Test Results Urnls Dip Stick Auto w/o Microscopy POC 69695 (06/25/2022) Bilirubin Urine Dipstick - 1+ Small Blood Urine Dipstick - 3+ Large Glucose Urine Dipstick - Negative Ketones Urine Dipstick - Trace - 5 mg/dl Leukocytes Urine Dipstick - Trace Nitrite Urine Dipstick - Negative Protein Urine Dipstick - 2+ (100 mg/dl) Specific [place] Urine Dipstick - 1.025 Urine Appearance Urine Dipstick - Clear Urine Color Urine Dipstick - [place] Urobilinogen Urine Dipstick - Normal 0.2-1 EU/dl pH Urine Dipstick - 7 Allergies Banana (Itchy) Melon (Itchy) Vicodin (Nausea) Problems Ongoing - Any problem that you are currently receiving treatment for. Bilateral kidney stones Group B streptococcus HPV in female Insomnia Recurrent UTI Tachycardia Historical - Any problem that you are no longer receiving treatment for. Education Materials Kidney Stones Kidney stones are solid, rock-like deposits that form inside of the kidneys. The kidneys are a pair of organs that make urine. A kidney stone may form in a kidney and move into other parts of the urinary tract, including the tubes that connect the kidneys to the bladder (ureters), the bladder, and the tube that carries urine out of the body (urethra). As the stone moves through these areas, it can cause intense pain and block the flow of urine. Kidney stones are created when high levels of certain minerals are found in the urine. The stones are usually passed out of the body through urination, but in some cases, medical treatment may be needed to remove them. What are the causes? Kidney stones may be caused by: ? A condition in which certain glands produce too much parathyroid hormone (primary hyperparathyroidism) , which causes too much calcium buildup in the blood. ? A buildup of uric acid crystals in the bladder (hyperuricosuria). Uric acid is a chemical that the body produces when you eat certain foods. It usually exits the body in the urine. ? Narrowing (stricture) of one or both of the ureters. ? A kidney blockage that is present at (congenital obstruction). ? Past surgery on the kidney or the ureters, such as gastric bypass surgery. What increases the risk? The following factors may make you more likely to develop this condition: ? Having had a kidney stone in the past. ? Having a family history of kidney stones. ? Not drinking enough water. ? Eating a diet that is high in protein, salt (sodium), or sugar. ? Being overweight or obese. What are the signs or symptoms? Symptoms of a kidney stone may include: ? Pain in the side of the abdomen, right below the ribs (flank pain). Pain usually spreads (radiates) to the groin. ? Needing to urinate frequently or urgently. ? Painful urination. ? Blood in the urine (hematuria). ? Nausea. ? Vomiting. ? Fever and chills. How is this diagnosed? This condition may be diagnosed based on: ? Your symptoms and medical history. ? A physical exam. ? Blood tests. ? Urine tests. These may be done before and after the stone passes out of your body through urination. ? Imaging tests, such as a CT scan, abdominal X-ray, or ultrasound. ? A procedure to exami (more content not included)... Normal [facility] Patient Educationon 06-25-20 Patient Education Obstetrics and Gynecology Urinary Tract Infection, Adult A urinary tract infection (UTI) is an infection of any part of the urinary tract. The urinary tract includes the kidneys, ureters, bladder, and urethra. These organs make, store, and get rid of urine in the body. Your health care provider may use other names to describe the infection. An upper UTI affects the ureters and kidneys (pyelonephritis). A lower UTI affects the bladder (cystitis) and urethra (urethritis). What are the causes? Most urinary tract infections are caused by bacteria in your genital area, around the entrance to your urinary tract (urethra). These bacteria grow and cause inflammation of your urinary tract. What increases the risk? You are more likely to develop this condition if: ? You have a urinary catheter that stays in place (indwelling). ? You are not able to control when you urinate or have a bowel movement (you have incontinence). ? You are female and you: ? Use a spermicide or diaphragm for control. ? Have low estrogen levels. ? Are . ? You have certain genes that increase your risk (genetics). ? You are sexually active. ? You take antibiotic medicines. ? You have a condition that causes your flow of urine to slow down, such as: ? An enlarged prostate, if you are male. ? Blockage in your urethra (stricture). ? A kidney stone. ? A nerve condition that affects your bladder control (neurogenic bladder). ? Not getting enough to drink, or not urinating often. ? You have certain medical conditions, such as: ? Diabetes. ? A weak disease-fighting system (immunesystem). ? Sickle cell disease. ? Gout. ? Spinal cord injury. What are the signs or symptoms? Symptoms of this condition include: ? Needing to urinate right away (urgently). ? Frequent urination or passing small amounts of urine frequently. ? Pain or burning with urination. ? Blood in the urine. ? Urine that smells bad or unusual. ? Trouble urinating. ? Cloudy urine. ? Vaginal discharge, if you are female. ? Pain in the abdomen or the lower back. You may also have: ? Vomiting or a decreased appetite. ? Confusion. ? Irritability or tiredness. ? A fever. ? Diarrhea. The first symptom in older adults may be confusion. In some cases, they may not have any symptoms until the infection has worsened. How is this diagnosed? This condition is diagnosed based on your medical history and a physical exam. You may also have other tests, including: ? Urine tests. ? Blood tests. ? Tests for sexually transmitted infections (STIs). If you have had more than one UTI, a cystoscopy or imaging studies may be done to determine the cause of the infections. How is this treated? Treatment for this condition includes: ? Antibiotic medicine. ? Skgx-hnm-vxxwpnt medicines to treat discomfort. ? Drinking enough water to stay hydrated. If you have frequent infections or have other conditions such as a kidney stone, you may need to see a health care provider who specializes in the urinary tract (urologist). In rare cases, urinary tract infections can cause sepsis. Sepsis is a life-threatening condition that occurs when the body responds to an infection. Sepsis is treated in the hospital with IV antibiotics, fluids, and other medicines. Follow these instructions at home: Medicines ? Take utym-uji-kctvwyy and prescription medicines only as told by your health care provider. ? If you were prescribed an antibiotic medicine, take it as told by your health care provider. Do not stop using the antibiotic even if you start to feel better. General instructions ? Make sure you: ? Empty your bladder often and completely. Do not hold urine for long periods of time. ? Empty your bladder after sex. ? Wipe from front to back after a bowel movement if you are female. Use each tissue one time when you wipe. ? Drink enough fluid to keep your urine pale yellow. ? Keep all follow-up visits as told by your health care provider. This is important. Contact a health care provider if: ? Your symptoms do not get better after 1?2 days. ? Your symptoms go away and then return. Get help right away if you have: ? Severe pain in your back or your lower abdomen. ? A fever. ? Nausea or vomiting. Summary ? A urinary tract infection (UTI) is an infection of any part of the urinary tract, which includes the kidneys, ureters, bladder, and urethra. ? Most urinary tract infections are caused by bacteria in your genital area, around the entrance to your urinary tract (urethra). ? Treatment for this condition often includes antibiotic medicines. ? If you were prescribed an antibiotic medicine, take it as told by your health care provider. Do not stop using the antibiotic even if you start to feel better. ? Keep all follow-up visits as told by your health care provider. This is important. This in (more content not included)... Normal [facility] Coding Summary.on 04-23-2022 Coding Summary. [id number] Gh0bWw+PGhlYWQ+PE1FV JAeQ84agDQbfB7ZM4yTJ L7ANXCLXWILFX8NVT4hp HV9MYfpG9TtzuUl XeegjEGeGW18HRe0WDU0 uKmjOLwfuY0iqYXaY4q1 GkKxLM05nH33TOgtEHUz BxB0UnAzjoielPVs K7nbBwFiyPXfVau+PHRh YmxlIHdpZHRoPScxMDAl ItVbnNeeIM8iAf5eIRNw LWNvbGxhcHNlOiBj j8ddHMLzYTayTP0uhZbm H5FdfEN3IMFcr4v8Oz14 dHI+YJAxAQP1aRkrIHvg k276CqUxb2maFJB8 kKCdQEbaUCZ1D57lc1I4 SJWhLNOrCAM3wYN6cX0x mCxafxrxH3KfqFSgAzO3 HRD4zZPbgB1iaThq pubwvP6fRgz+H33NCB8U KQDGRL2GHlo6P0VmBajo dHI+YU24LAUmLT76vAXn aARho8lssZd5DnSq VNEjUVG0lHxiPZqwr9Or XUSqS32wtSXnk9O6BMAx iEywkAHeEyRcgBW6fY2y VXqhnjwpu6blflru Gavyn8ucac71pE37N27s HCbxCBPzWSJ4MRQySDRh kYdudb4wkH0uGk2+IDxj a5gdh4xyxNs5DlUv GXHedaHynMssUBB9q6Di Ob27O4XixUaon2MaWtz3 cy45zUDvk6Z4hVD0YIti FJCpvY7pKLpmTbG4 ICZmNxJniD60eXMwZAfo Ow5cdQzokJydME4jJZAc hqkmXVJttI1sRBDkiJAt gAgpTZ6xKSJqkcot r150JlKbOME4UAAmhOHc K2NxzO4oJeYlPTRtVVSg E6AehJKiYUumJ587AXkm HfC7QTAevwDgZ2Lk ROCuzZvtOaY8u8C4Ba7K g3UstzgiRUU1IJqtWZB6 MaB9BpXhQmW4T5WqLps7 HHSlwYylMQ4iP8Oj JOBnqfkwjqdazDT3USIb JUZvdG85sDAlYJuyAg7a x1X0s282ODMzTIGhzN90 Xv0btDyoLFVjaCOG lA7tobdom9lhrnmvAgFt NKCzNLo3CQb8SQNmxEdf VtTzMZD2YgY6XKU4uPYp wA3tbOpsigqunU1k Oyc+T40nhZ3kZJH1XRR6 bafhELEsswZmEB68MS83 M8RiYpcezMZgqTG+PGRp siOnaRfgJP2rQeMh u3vdv3MlVIhcW0TyWNEz UCaiTvi9KANsRBP2hOM3 pS5dRNHbXWyke3L4pHO7 Z9QmjeGqku2vy2tn OOVtJWppT78zmHTyy5C9 ZXQlwOT1TXVxqQjnMmQj vY80Vrx+NPDhvIxsa5Nx Pqjwj6bye8dkwHk3 IjMwJSIgdmFsaWduPSJ0 b7JqIa15S10oOVobHDZh MPMeYAZwMGKumAnrvj6t bO5kJo5+PGNvbCB3 lJD0rL7eZKNxYyK8ZMhi I080WvWpkSJeWcazw4ht h1bxdXr4ZsLmYIQwqeEi uLljALE6u3OxZt40 L10yGKkgEDBlXDLiPFZr TKFqvAkoyz3gsF5wRm6+ TS5sq8mpbx96sI89bEU+ FXMtCQD8iMuvNYir JLHvoJ2hGZaaKvH6JKVk CjQycH72xKGrXBcyLh1b qRxdiCcsHO0bBTWsgvob r909XrNih7doZSVa nSNaTMyrPCC0A85jy1J5 JJVrLAUtMDF4sFU1vP5z bGlnbjogbGVmdDsgdmVy qEypUEdzUIjdP513 IHRvcDsnPlBhdGllbnQg KeQsLTu7W9HhCmd2QURi hVpnGZ0hvFMeCAqoCd0s wBaaxMmySF1vLIVg mheot227WcWpl0ekXBDb eVXhNJoaXMF6Y62wv4L5 WTRoLKSlJIT0uOK8bS7r bGlnbjogbGVmdDsg jrDsbNxuESktDHtzZ460 IHRvcDsnPkJpcnRoIERh cKU3OJ39KR31cJZpm2O3 bRJ8X7MnJVBtctmz gxtpbSB3UKKjHJZuaD48 Ul0uoMhqLm7vYYUgVYP1 WLXwdRIwN4OyhR2dSnFp ROMcMWTeD5OevHJz MGbxT444VQekApD8WOSk ciQhF3CgNJPafNdjJpZ5 z1I9Uk1HT0Y8QU70FR25 eFZaf5N3tFC2A1Pa NWHumdojahitsJV5IFLi SRTevW55Nv4kpZrhCt8i YOCiPZN4CHTmwINkR5Rr eW1fPkKeOMZzSXNn U7PlpDHuHAlwA738DRkp WnC5WQSlovEoE6SvNJCh yDyvZgW6x2Q0Ao8GAKj6 LG73XZ28cYDsh8K9 uIQ9H8PoEFJamoeonanh eVR3CVVfIYTspA62Xq0v hJzaEh6xQYEgUKO1GRLc wIIkO9EjhD3iXeTt PVMpLCDlY8YxmNJtASzh M479EIqeUqO1FDNvmcWo Z3UxOBJvqYcuZlA4b7Z1 Nd8BXFJwYO76UDI0 iGI4EI71KK85E4MnQkmd dGFibGU+PHRhYmxlIHdp ZHRoPScxMDAlJyBzdHls GM9iQe3hKCQlQFJq dMmvoUCkOeOtq6cvPJBd SJgoSX6noCutW0EsnXN4 GSFnk0z0Jo84M08bB9Me dXA+TCAjmJW4qEC8 eU2xAdTsBnO8MOgfJ414 QxWmeHAgRyjlc8wuu5kr gXu2RjU8YOOmvcNjfUfp JHA8p9QzPe76V99u IHdpZHRoPSIxNSUiIHZh rUfhvc7hfJ4jYu9+PGNv cUR4qOE2pK2iPzKkFaJ7 NWexP331PsCfpWDr Klqce6zfi4aqhFk2DhPu CSXrehBmwDjiWMZ3i6Xz Vo28O4MjgPbrl6UgOfc2 ek51qUYqp3Z7lKG9 E9IrILPvbixnzYBxbCgk NF3tPRQflctdUYNikN8u EGKsQ6b0RkDzVwV5KHnb E4BnnaW8VXOtuYMl QUhnDKY7M04pt2Y3JNUi YSAmNDK8rWD9aD8teXqj bjogbGVmdDsgdmVydGlj BUxnFVlmA652MZWb yAjkIZPbaF1zALQeuWPm mLtlUK8iZVIgrlfiMb7X KJFRXQVVQX2SBSiiwIL+ VBMnXKC8yLmwKMvh WTRqfJ2aCOBjW3c6DwEz TiC5UAcdW8TmBVYvfawd Mn39uV6mVzWmGmC3SHaj P2CqixD9KOXnuMRe VTheTLK3O93zd4B0LKOp ETOfCZV7tCK3gR3fuLns bjogbGVmdDsgdmVydGlj IQbwSIqyR756KIQp uOogQtD2SsG2SnI2JUR2 Z0LqZlu0GULjqHjjJR5n iBTlMCxeIc7noFbedLyp AC8cUJFschehOQLc jX6oSWZxfUGrkWkvDR1k KPFpldjfk688PoNzTFN8 BVYigLAcB1JwyO5nSuNz CMWsFQJxC2SlhSUn AItaJ173MZvpUnV1KXUf juLyT9OwXKRdmTcyRjQ4 x5E0Td3kSRVGNCHfcaok dGQ+XMBjUZS9dJcd RWvxWSZbsC9fYHKxD7y7 AuDsZnM5NHsoM8UmPEDu npdmDh30lW7mRtEfLxC5 RAhrG6VclmG7YQCb oSXeXZhhVTE5L79jl0Y4 OGAnRMDjUQZ2lVK7tP7r bGlnbjogbGVmdDsgdmVy jLifHIwbLAlnT146 IHRvcDsnPkZlbWFsZTwv dGQ+OABwLCB9bGxxXHum KASxhS5iSIPvK9j2WjHu CwG8AUcnB5XoMPBt fyydNp44cM0pXhNbEoE9 HGpyC3FiffG0RXLwgIRb ODpwZXH5P46pb5E4RPKn MOIbGPE4mCS0qD6h bGlnbjogbGVmdDsgdmVy pJpmTBizTDlfK314WTMo yHkkEiqzZoYShd8cSL5g ZjwvdGQ+IL22wt94 H3CqQusiTyt7FWIdMVA5 kPI5yD1bCCUqTBipl0A3 aQA0K1OwdkLjoj2rj2gl VSBnPFyoH22wbPAq m7Z6WLDnoHS9VUCwjPpg OtKtsZ34Rwt+PGNvbGdy t7HpBczwu7kgi8javCr7 IjMwJSIgdmFsaWdu IDQ0g4PhIa90O47vSOpx ZHRoPSIzMCUiIHZhbGln tl1uoF7xMr7+PGNvbCB3 tSK2fV0vApKmVqC8 UFlfW353VtTwiPHcRufa r1zri3xxxUa8YpIeIPZz ddPwuCwdSOS4q6NoOc80 I1EpdJzfa8ZuNyq2 oy43dWKyd7E7uCY2L2Cp UXIldwwrhPCalJzsXO6o WSTakgpnZJZkoE3pTSKc I5l9PhLkAzV3GYdn X7FejqS7IIRocTStLMIj aPBYcA3qlpvzi9gvuxvf MrKbWJMrXVy3MXg4FSOm lLftSxFgFUW3BaG4 TDN8pIMinZ3rrRhybife mR3xPrk+QXv2n3basFRv RV8udFN1TQ21YU80wSDo d8I9uXS7Y0WkVCJt ykqnusrcxWE0PHXqUAPr wH74Ws5mvFgsVc5xAGDn NSV0BURunXVtO7OnkQ0g TwBiQYOgWWLlS1Br eNFmKWcaX783FEidAuV7 NNQyslTuK5ToRZPcuAjx GqP1u5P6Zx7DQM84GN36 HA30mOZpl2I3bDX7 O7BwVSXczlovziiyyYT2 OAXzQNFmbO94Rd8jxKnd Ee9zMZQpBND2HZWfmWPt I1SjhF0gNkKuTYCu EYLmT1UzsSPnNHxeT323 OVmuVvY6OFQmpwBuZ3Vn RJFeiXefNsI3m2L2Wb4I Oc84TJ75BW09hFTr q6O6pXM0D3ZoYQTnwaar dtgieBK8HQOdNJLmpJ02 Th6wbXsuTm4lJWAqCVS7 ZHQfkWHlE9YrwJ1f UvLfRFOvJEOqC7MjtMCd WXfbN438CQucItR7VCLa dbLwY8KaSGHveXllNtL1 r3M5Im1EOOwlgze3 X8LuHreogBV+CR95NCSf KX99cFVnjFXyy5moeLy2 SoRuJVNfPNS6fBomQZbr z9GxAOIxS03hzOSr c2U6 (more content not included)... Normal [facility] Reminders 04-18-2022 Reminders - From: Lupis Turner To: EU - Clinical; Sent: 04/15/2022 15:02:18 EDT Show up: 04/18/2022 08:00:00 EDT Subject: Urine culture Reminder/Recall Urine culture done on 04/15/22 addressed by ANNITA Smalls [facility] C Urineon 04-17-2022 Bacteria identified Cx Nom (U) Microbiology PROCEDURE: Urine Culture [R1] SOURCE: U Random BODY SITE: COLLECTED DATE/TIME: 04/15/2022 15:01 EDT RECEIVED DATE/TIME: 04/15/2022 17:29 EDT START DATE/TIME: 04/15/2022 17:29 EDT FREE TEXT SOURCE: POLLO LIN, SAIDA ABAD PA-C, SAIDA Dodd FINAL REPORTS Final Report [] Verified Date/Time: 04/17/2022 10:31 EDT 20,000 cfu/ml Escherichia coli 2,000 cfu/ml Mixed skin contaminants SUSCEPTIBILITY RESULTS LEGEND: S=Susceptible, N/R=Not Reported, Blank=Data not available, or drug not advisable or tested, I=Intermediate, ESBL=Extended spectrum beta-lactamase, R=Resistant, TFG=Thymidine-depend ent strain, WESTON=Beta-lactamase positive, NISH=mcg/m;(mg/L), S*=Predicted susceptible interp, R*=Predicted resistant interp EC Antibiotic NISH Dilutn NISH Interp Amikacin <=16 S Ampicillin >16 R Ampicillin/ >16/8 R Sulbactam Aztreonam <=4 S Cefazolin 16 I Cefepime <=2 S Cefoxitin <=8 S Ceftazidime <=1 S Ceftazidime/ <=8 S Avibactam Ceftriaxone <=1 S Ciprofloxacin <=1 S Ertapenem <=0.5 S Gentamicin >8 R Levofloxacin <=2 S Meropenem <=1 S Nitrofurantoin <=32 S Piperacillin/ <=16 S Tazobactam Tetracycline >8 R Tigecycline <=2 S Tobramycin 8 I Trimethoprim/ >2/38 R Sulfa Performing Locations R1: This test was performed at: [facility], [address] [place] [address], [facility] , , [facility] [place] Comment on above: Performed By: #### 2 [id number] ####[facility] [address] [place] [address] Coding Summary.on 03-13-2022 Coding Summary. [id number] Gh0bWw+PGhlYWQ+PE1FV NSpP49hqRLohG0TB1zCH S2SUJVULMDSQQ2HBJ5mv CO2NOfuH3ZjrzQd MxxgvLKkTY03LFb8YKZ6 aHsnNMxekM3adCAjM1a3 TdRmFF72cM20YIbzXZAl IwW9GiLwdgaatLJu F1buHjQngAWiYui+PHRh YmxlIHdpZHRoPScxMDAl CsBvsAwdLH0nDx8nDRYz LWNvbGxhcHNlOiBj f0vpXGMiWQurEI3vbTyi G5ObpPA1AZWwa9j1Va33 dHI+TXHlPVC5rUlrYDjv o274EiIdu9bhGRR3 sDWzMZbqKJQ9X83et6L7 HGOtQEImMQG8fGW5xD1i rScveqzxP8UjsYOcWiG9 DYX4iFKhcG2ksXdb fvsctI7zZyt+L88RNU7Z ZEARWT4CJzy7Q7ZpPtat dHI+CP84SDWiCI20oCPj gBWny2zqjFo2IwRo PBDrCWL4aRquNGhwx8Hs HLLuC50jbXYcc1J4YPKa uYvqiHWlEeQfcBX0hX3m KIndiwkig3govwls Wqwcq0uoqi51qM23B89b LSepCRUdIAM9BAVuGVQj lFqtvg5uyB7gNs2+IDxj v4pqb5wphJt6CfDs LBBmyvPfuJgdMNM4w2Ac Ib20P3IjzVvot1JlNom9 mr14zCNin3F8pWD8JTyo XXAkkO6oXKxrLvZ6 AHAiGnPrwO93lFOlUHau Jl4woLkqqEmjBI1aHXHq kjgtXFYxaO5mUUSozEJy oOnyBT7hTHMfdnjt s482RoYwZTL2RKBcbCLw D2ZdlM2cSeRmUABoWUDo T4SckAQbPAgbA268TGfp PeA2QFYhznPdH6Fx CEQabKxpUkM5e3B8Oy4G r2AikwfaABW4BXwuYIU0 YnZ5SmUoDgP3O8IuNfj9 XLGfpSioCD2hO6Od WFDsiquijhsgiOH5KAMs TUNowN19kCWqRArjJl1c l4K9j348WWTxHSTobE35 In8vvDngHQPgtCHG jG1uopmhz7pileevOcGt TVFuNJh0CKc8NNIksZdj OmMqWZL4HfA1ZRB0sPMj jB4cuMvsmekziC3o Oyc+N88zeJ7wYDH4ASR1 qmjdNZUusuYvTK83ZL36 W0PrOmxrqWBgaUE+PGRp vmHhcQfxNK9yVrKm g9mvy1DcOLnvS8RtSCXz IGsfFsf7GMQxUDA2wFS5 cY1aIJUwGOaiv6Z7hJQ0 T8EqvsGifm6rz2qk KOIwUPlxR08ebJXnp2I6 YGYzwIA8PHPyyXqpUgOl sZ91Clr+HEXetTgrf0Dm Hwxsk2yxz5nwmCc2 IjMwJSIgdmFsaWduPSJ0 m9YxTr00K18fWXscSSCi GWKkHUNyFFFunKcdtd8p bH0lXi2+PGNvbCB3 tBS8vX9qJGDdErN0PZoj C719TwOpdHElEcnpi8ot t5vowCh4TtHnHTVvfdIx kBcjFYA6p4YmLj77 E31iMNdxLTXrZEGrHQYw LGHlmHljrx2ulE8yGe8+ WR3av5oxqp10vA86pHG+ DXOoQAW7nAxbBDoe ODOveT1wYSqoJfD0BWYp PjFopE97mQNfAYrdLj0s vOpkxKuwHI8gAACfgitt n285HvPaw7tnJAZl uNOgAHmcDZR6D77fy6O0 NJRkMBRzEKS0kIU1iI1l bGlnbjogbGVmdDsgdmVy oJerYRpeOXfyG115 IHRvcDsnPlBhdGllbnQg KnGzCYz9B0DrFai5MRRi vJipFQ6sdMYkKLmcWz9n kOvyeJyiXK0hAHWx oomak491LvHph7yvZINc fRXgVHtyZVF7W86ur2T8 PPPzIKBxBYG9jFV4nB7r bGlnbjogbGVmdDsg plAznYfdCRovQMqgC232 IHRvcDsnPkJpcnRoIERh tOZ0HU55LN99xQFcy3V5 iBO6W3MnFASqfsvd htdvmUQ3UEJbJPJoaX44 Au3jjApdEb0wEEAfCFM3 MCWeaXQwN8XntO1mAzAb FQXxKWFwB9SloCMg EJxvW883BDpaGdS2QMFf exIbI3FmNTTrkWovKzA5 s5T9Vl4OD3M4QA22VR91 xJIvj7B5bBR8M9Fm LOKmczytsqinjIQ7BTAc LUTrsR02Qi9jjWngJz3z XRGxTCQ4GCWmdECfC7Tq vK6qNzNrEYTsAXGf V6XiwDNcZRwqP974HHtu VuW3RUWfcsVeA0VzINEt eYjxDaD4u3V1Lq5TQTy2 CY42TF95kVWym5F9 kEH0F5HhZQRwyjatswuy rIH3CCEgQESmfJ23Bj6u sOjfQv9gQMSmPVC1XSAb lVRrV3EecD4pTjTx QRUaYBEhC7JlcAXmLLud M317ZZelDtK6RHQqmtEt U4MdYWXufJhqFdP5n2J6 Mk0WJMYfLZ69VZT3 sWN6TM11HV95U9WcHyuc dGFibGU+PHRhYmxlIHdp ZHRoPScxMDAlJyBzdHls CK2kNy3sUKXsJLFw aZylyGBmFkOei9bfPDUj DAtzVS8dmOboN6MsmIE6 VQVrt5x9Tf09O10yE6Ga dXA+DNAqxNY7iFB8 eX0wXyFaTuL8BAtbD746 PrWbhGVcNqqve1pjd3go dUn7EzJ3RBGaokOsbNti RMX9f2IsMl44J37s IHdpZHRoPSIxNSUiIHZh aWqrnh5fcO7dKh7+PGNv rQD9wSH3vI9nBiRyHyB9 PTiqH574IqOpbATb Kvadr8ebe5kmcUv2YgIu CCHngrFmqErjVNM8n7Xn Dc80K4YypWuwu0GzXpf8 aw27fANfz3P4hPF5 E0UzAIAghdrntGPlzNaz KF6oZOKojtvgYCJdsE9w BOOiA4f6BsZsYkX2ADee P1ZoegY0FOQorIDv ICzbEUI4P29cw4Z0PTMc OSOfVXL0dYP0bL1ypNmq bjogbGVmdDsgdmVydGlj KCkaLBxpP688NKCh ePppRCAdxM9eTGQxxWLr uZzoHD3sOUJkeperUj2G PYYOBJRZFC6WSSlbaKM+ XRFkVNJ9iCtmMMiy FSUacE4lSVNqK4v3AqEx JmM8MZmsV1PoZZNqgybu Wd06uI1hRjHgYzX4LSiy W7XhjpT8ZMSvlXLk HRnrGUY7O41wr4C1XGRo CPQuNMQ1jBO7sM9iaSlk bjogbGVmdDsgdmVydGlj IKtmHIflM155CHBd yDfhNkY3QfQ0ZvE5KKR6 J8WrKyn1CVNzsGmsQY6k bXPvZVgdZo4otIfydGob QM9tXHOxnkxqUCGa nW1wLMHujUZbaUrbAL6s ZKXtqcumv101OtXwWNW5 VQQvkAQuM0UxrC5sCmQd PNVnFMFzB9BseAHj VNghF248RCnmBqW4WIBu imKhW7XoJSOtoUkeFhQ3 a6K7Zs0dPQCVWNBaqaiw dGQ+RPUmODL9fFcn LVcwGZBqtR7nCTBwX0c1 KrDsSkL5UMdoK1WiQAZm jnvrFd35eY9eQcWwObM0 GGkwR9VpukM6ETEu qECmQWkgKIX0E39lg8G5 MZKkLELqRQZ0gIM4iU2j bGlnbjogbGVmdDsgdmVy bIoaHYtaEVyhZ429 IHRvcDsnPkZlbWFsZTwv dGQ+LXQpVYC2mQihEJpe KCRjpU5kHTRvD3p7JxJn NfC2FZfbH5KtCLJu kyiwJz37xS9cZnXqBcC2 KHuaI1WzsoY4FATjuUDj QJzqVTY7D47xh8J0RENo RKZgKUA1sRS8mL9o bGlnbjogbGVmdDsgdmVy qQrvIUjkOKrtC570FDYx aMspUayeRzKMgp1hMN8t ZjwvdGQ+XE79fz16 W2OkLxluChw6ENAhXXF2 dHQ3uD0gVOYeOLhes5W5 pSK4Q1DxqsUbqj0sc8rq LCFoCZvrU35zoCFx u1U8JVCnhJQ4EKCwvSqt AnDfmX04Jfg+PGNvbGdy o3MfDxrbh5cni2gucEn6 IjMwJSIgdmFsaWdu YEH3u9KdUx16R78jPDxr ZHRoPSIzMCUiIHZhbGln gw8zxG4wEy2+PGNvbCB3 gGF1hC0oNgUcUlE9 ZLnnA612CkZreZBbPfyd u4hvv8gehGl9LnLlPNHk yxWpaCozDAX7j5HkOz27 I1VzcJybt6WxYhv7 it65jGPia9I5vRU1X0Tt PHHwrtemlVLtuTebSZ0y ECUkupvuBKLmtJ7fLUFx Y8o8LtNnLvY3OAnb V8QhwxX7FTRqeJEhBPAw tHMTwE0rivkwb6eroyzu BwOcSZSwBZr0LNp0OTHq vVrwEnKsMWC5QpY8 YCQ2tIAegE4hnSpdtoxj qB7bSlw+HSb5q8wgoLTj XK3xtTA6ZP40CH70qQVj o5J0jJS1L1FjBVDw vnwhfbvzqRD2YJEqBWNr pW03Lj2sfNghFv7vKBZg CYM6CQEvyFFjQ4WczJ7l OvYyQEGwRIXqH8Cw uAUfMRjiP201DVmsDqH9 JPSgmlIeY6BiDTIvvIeu XaA5n2U3Nb6ASG53BA88 WS08pWFcn8K9wGE1 D6QtAGZblufrziykuRH1 SMOmXSZmnT95Bw1knYfb Vg2sVMEfGMP7ZGWbiBLu X2CwcA4yHmSjEKYt TVBrE0DkrBOzJSmpQ062 IBjkFpO4TPMasiYlZ3Ld GMRncPpuVwA0d6Y9Oa4A Jt59VC01SM44eDBj b0V1fEH0R1GrBFKmzfhb yxjkaBD5NSVcZDQxiZ11 Xu0aoOyiEe2pFERhDDP9 UAHxlJJtJ1LegI4s HfCkGLMoKABbB2IqkRWa BNiuO679XGtgMoG0BORq chWiA3BqSUOloUqsCjO6 s6S9Nl5RAVyhpax4 R7KzHaafpWB+CT33BDUq KF47oXTyiVDks9ykrLe9 DdEmVLWjPZX0qSizQFmc l6SaDHNaO09goVQv c2U6 (more content not included)... Normal [facility] C Urineon 03-08-2022 Bacteria identified Cx Nom (U) Microbiology PROCEDURE: Urine Culture [R1] SOURCE: U Random BODY SITE: COLLECTED DATE/TIME: 03/06/2022 14:52 EDT RECEIVED DATE/TIME: 03/06/2022 16:10 EDT START DATE/TIME: 03/06/2022 16:10 EDT FREE TEXT SOURCE: SHAYNA JENNINGS, Kwadwo SAEZ MD, Kwadwo Andrade FINAL REPORTS Final Report [] Verified Date/Time: 03/08/2022 09:20 EDT >100,000 cfu/ml Escherichia coli SUSCEPTIBILITY RESULTS LEGEND: S=Susceptible, N/R=Not Reported, Blank=Data not available, or drug not advisable or tested, I=Intermediate, ESBL=Extended spectrum beta-lactamase, R=Resistant, TFG=Thymidine-depend ent strain, WESTON=Beta-lactamase positive, NISH=mcg/m;(mg/L), S*=Predicted susceptible interp, R*=Predicted resistant interp EC Antibiotic NISH Dilutn NISH Interp Amikacin <=16 S Ampicillin >16 R Ampicillin/ >16/8 R Sulbactam Aztreonam <=4 S Cefazolin 16 I Cefepime <=2 S Cefoxitin <=8 S Ceftazidime <=1 S Ceftazidime/ <=8 S Avibactam Ceftriaxone <=1 S Ciprofloxacin <=1 S Ertapenem <=0.5 S Gentamicin >8 R Levofloxacin <=2 S Meropenem <=1 S Nitrofurantoin <=32 S Piperacillin/ <=16 S Tazobactam Tetracycline >8 R Tigecycline <=2 S Tobramycin <=4 S Trimethoprim/ >2/38 R Sulfa Performing Locations R1: This test was performed at: [facility], [address] [place] [address], [id number] , , [facility] [place] Comment on above: Performed By: #### 2 [id number] ####[facility] [id number] [place] [address] Reminderson 03-06-2022 Reminders - From: Lupis Turner To: EU - Clinical; Sent: 03/06/2022 14:52:59 EDT Show up: 03/09/2022 14:52:00 EDT Subject: UA micro, CX Reminder/Recall UA micro/culture done on 03/06/22 Normal [facility] URINALYSISOrdered By: Nazario doyle on 03-06-2022 Bacteria LM Ql (Urine sed) 2+ /HPF Invalid Interpretation Code Trace/HPF [facility] UA Auto SS Bilirubin Ql (U) Negative (03/06/22 2:52 PM) Normal Negative [facility] UA Auto SS Clarity (U) Slightly Cloudy *ABN* (03/06/22 2:52 PM) Invalid Interpretation Code Clear [facility] UA Auto SS Color (U) Yellow (03/06/22 2:52 PM) Normal Yellow [facility] UA Auto SS Epithelial cells.squamous LM.HPF (Urine sed) [#/Area] 3-4 /HPF Normal 0-2/HPF [facility] UA Aut o SS Glucose Test strip (U) [Mass/Vol] Negative (03/06/22 2:52 PM) Normal Negative [facility] UA Auto SS Hemoglobin Ql (U) Negative (03/06/22 2:52 PM) Normal Negative [facility] UA Auto SS Ketones (U) [Mass/Vol] Negative (03/06/22 2:52 PM) Normal Negative [facility] UA Auto SS Oakley.plasma/Lithiu m.RBC (Bld) [Mass ratio] 0-3 /HPF Normal 0-3/HPF [facility] UA Auto SS Mucus Ql (Urine sed) Trace (03/06/22 2:52 PM) Normal [facility] UA Auto SS Nitrite Ql (U) Negative (03/06/22 2:52 PM) Normal Negative [facility] UA Auto SS pH (U) 7.5 *NA* (03/06/22 2:52 PM) Invalid Interpretation Code 5.0 - 9.0 [facility] UA Auto SS Protein (U) [Mass/Vol] Negative (03/06/22 2:52 PM) Normal Negative [facility]A Auto SS Specific gravity (U) [Rel density] 1.015 *NA* (03/06/22 2:52 PM) Invalid Interpretation Code 1.005 - 1.030 [facility] UA Auto SS UA Spec Desc Random Urine (03/06/22 2:52 PM) Normal [facility] UA Auto SS Urobilinogen Qn (U) 0.2900493 {Shan'U}/dL Normal 0.0 - 1.0 EU/dL [facility] UA Auto SS WBC Auto Ql (U) Negative (03/06/22 2:52 PM) Normal Negative [facility] UA Auto SS WBC LM.HPF (Urine sed) [#/Area] 6-15 /HPF Invalid Interpretation Code 0-5/HPF [facility] UA Auto SS Urinalysison 03-06-2022 Bacteria LM Ql (Urine sed) 2+ /HPF Abnormal Trace [facility] Comment on above: Performed By: #### 1 [id number] ####[facility] [address] [place] [address] Bilirubin Ql (U) Negative Normal Negative [facility] Comment on above: Performed By: #### 1 [id number] ####[facility] [address] [place] [address] Clarity (U) SL CLOUDY Abnormal Clear [facility] Comment on above: Performed By: #### 1 [id number] ####[facility] [address] [place] [address] Color (U) YELLOW Normal Yellow [facility] Comment on above: Performed By: #### 1 [id number] ####[address] [address] Epithelial cells.squamous LM.HPF (Urine sed) [#/Area] 3-4 Normal 0-2 [facility] Comment on above: Performed By: #### 1 [id number] ####[facility] [address] [place] [address] Glucose Test strip (U) [Mass/Vol] Negative Normal Negative [facility] Comment on above: Performed By: #### 1 [id number] ####[address] [place] [address] Hemoglobin Ql (U) Negative Normal Negative [facility] Comment on above: Performed By: #### 1 [id number] ####[address] [address] Ketones (U) [Mass/Vol] Negative Normal Negative [facility] Comment on above: Performed By: #### 1 [id number] ####[address] [address] [place].plasma/Lithiu m.RBC (Bld) [Mass ratio] 0-3 Normal 0-3 [facility] Comment on above: Performed By: #### 1 [id number] ####[address] [address] Mucus Ql (Urine sed) TRACE Normal [facility] Comment on above: Performed By: #### 1 [id number] ####[address] [address] Nitrite Ql (U) Negative Normal Negative [facility] Comment on above: Performed By: #### 1 [id number] ####[address] [address] pH (U) 7.5 [pH] Invalid Interpretation Code 5.0-9.0 [facility] Comment on above: Performed By: #### 1 [id number] ####[address] [address] Protein (U) [Mass/Vol] Negative Normal Negative [facility] Comment on above: Performed By: #### 1 [id number] ####[address] [address] Specific gravity (U) [Rel density] 1.015 Invalid Interpretation Code 1.005-1.030 [facility] Comment on above: Performed By: #### 1 [id number] ####[address] [address] Type of Urine collection method Random Urine Normal [facility] Comment on above: Performed By: #### 1 [id number] ####[facility] [address] [place] [address] Urobilinogen Qn (U) 0.2 {Shan'U}/dL Normal 0.0-1.0 [facility] Comment on above: Performed By: #### 1 [id number] ####[facility] [address] [place] [address] WBC Auto Ql (U) Negative Normal Negative [facility] Comment on above: Performed By: #### 1 [id number] ####[facility] [address] [place] [address] WBC LM.HPF (Urine sed) [#/Area] 6-15 Abnormal 0-5 [facility] Comment on above: Performed By: #### 1 [id number] ####[facility] [address] [place] [address] Consent for Procedure/Surger yon 02-26-2022 Consent for Procedure/Surgery [id number] 9#1.00CD:127 Normal [facility] RAD - MISCon 02-26-2022 RAD - MISC [id number] 8#1.00CD:127 Normal [facility] RAD - Ultrasound Reporton RAD - Ultrasound Report [id number] #1.00CD:127 Normal [facility] Ambulatory Visit Summaryon 0 02-25-2022 Ambulatory Visit Summary JESSA CHATMAN :1985 Visit Date:02/25/2022 Ambulatory Visit Instructions Your Diagnosis Recurrent UTI Bilateral kidney stones Your Care Team Attending Physician - SHAYNA JENNINGS, Kwadwo Andrade Primary Care Physician - DEVIN LAM DO This Is Your Medications List amoxicillin (amoxicillin 500 mg Cap) Contact prescribing physician if questions or concerns citalopram (CeleXA 20 mg Tab) docusate (Dulcolax Stool Softener) multivitamin (Multi Vitamin+) progesterone (Progesterone (micronized)) [Image Removed: STOP]Stop taking these medications cephalexin (Keflex 500 mg Cap) Procedures Performed Myringotomy (1989), Tonsillectomy (1989). Discharge Vitals Height 162.0 cm Height 162 cm Weight 75.0 kg Weight 75.0 kg BMI 28.58 What to do next Scheduled Follow-Up Appointments Thursday 2:45 PM EDT With: Kwadwo SAEZ MD Where: [facility] Flo Smalls [facility] Patient Educationon 02-26-20 Patient Education Urology Kidney Stones Kidney stones are rock-like masses that form inside of the kidneys. Kidneys are organs that make pee (urine). A kidney stone may move into other parts of the urinary tract, including: ? The tubes that connect the kidneys to the bladder (ureters). ? The bladder. ? The tube that carries urine out of the body (urethra). Kidney stones can cause very bad pain and can block the flow of pee. The stone usually leaves your body (passes) through your pee. You may need to have a doctor take out the stone. What are the causes? Kidney stones may be caused by: ? A condition in which certain glands make too much parathyroid hormone (primary hyperparathyroidism) . ? A buildup of a type of crystals in the bladder made of a chemical called uric acid. The body makes uric acid when you eat certain foods. ? Narrowing (stricture) of one or both of the ureters. ? A kidney blockage that you were born with. ? Past surgery on the kidney or the ureters, such as gastric bypass surgery. What increases the risk? You are more likely to develop this condition if: ? You have had a kidney stone in the past. ? You have a family history of kidney stones. ? You do not drink enough water. ? You eat a diet that is high in protein, salt (sodium), or sugar. ? You are overweight or very overweight (obese). What are the signs or symptoms? Symptoms of a kidney stone may include: ? Pain in the side of the belly, right below the ribs (flank pain). Pain usually spreads (radiates) to the groin. ? Needing to pee often or right away (urgently). ? Pain when going pee (urinating). ? Blood in your pee (hematuria). ? Feeling like you may vomit (nauseous). ? Vomiting. ? Fever and chills. How is this treated? Treatment depends on the size, location, and makeup of the kidney stones. The stones will often pass out of the body through peeing. You may need to: ? Drink more fluid to help pass the stone. In some cases, you may be given fluids through an IV tube put into one of your veins at the hospital. ? Take medicine for pain. ? Make changes in your diet to help keep kidney stones from coming back. Sometimes, medical procedures are needed to remove a kidney stone. This may involve: ? A procedure to break up kidney stones using a beam of light (laser) or shock waves. ? Surgery to remove the kidney stones. Follow these instructions at home: Medicines ? Take kjws-sdc-fxqaxyb and prescription medicines only as told by your doctor. ? Ask your doctor if the medicine prescribed to you requires you to avoid driving or using heavy machinery. Eating and drinking ? Drink enough fluid to keep your pee pale yellow. You may be told to drink at least 8?10 glasses of water each day. This will help you pass the stone. ? If told by your doctor, change your diet. This may include: ? Limiting how much salt you eat. ? Eating more fruits and vegetables. ? Limiting how much meat, poultry, fish, and eggs you eat. ? Follow instructions from your doctor about eating or drinking restrictions. General instructions ? Collect pee samples as told by your doctor. You may need to collect a pee sample: ? 24 hours after a stone comes out. ? 8?12 weeks after a stone comes out, and every 6?12 months after that. ? Strain your pee every time you pee (urinate), for as long as told. Use the strainer that your doctor recommends. ? Do not throw out the stone. Keep it so that it can be tested by your doctor. ? Keep all follow-up visits as told by your doctor. This is important. You may need follow-up tests. How is this prevented? To prevent another kidney stone: ? Drink enough fluid to keep your pee pale yellow. This is the best way to prevent kidney stones. ? Eat healthy foods. ? Avoid certain foods as told by your doctor. You may be told to eat less protein. ? Stay at a healthy weight. Where to find more information ? [employer] (NKF): www.kidney.org ? [employer] ([facility]): www.urologyhealth.or g Contact a doctor if: ? You have pain that gets worse or does not get better with medicine. Get help right away if: ? You have a fever or chills. ? You get very bad pain. ? You get new pain in your belly (abdomen). ? You pass out (faint). ? You cannot pee. Summary ? Kidney stones are rock-like masses that form inside of the kidneys. ? Kidney stones can cause very bad pain and can block the flow of pee. ? The stones will often pass out of the body through peeing. ? Drink enough fluid to keep your pee pale yellow. This information is not intended to replace advice given to you by your health care provider. Make sure you discuss any questions you have with your health care provider. Document Released: 04/13/2009 Document Revised: 03/13/2020 Document Reviewed: 03/13/2020 [employer] Patient Education ? 2019 [facility]. [facility] Urology Office/Clinic Noteon 02-25-2022 Urology Office/Clinic Note Chief Complaint cysto HPI Staff cysto possible UD, review renal us and kub, abx taken History of Present Illness I have reviewed and verified the staff HPI to be accurate for this encounter. Review of Systems ROS - Provider Constitutional: denies weight loss, denies hot flashes. Eyes: denies eye problems. Gastrointestinal: denies nausea, denies vomiting. Cardiovascular: denies chest pain or angina. Integumentary: no dryness Musculoskeletal: denies musculoskeletal symptoms. ENMT: denies otolaryngeal symptoms. Respiratory: no shortness of breath. Heme/Lymph: denies easy bleeding tendency, denies easy bruising tendency. Psychiatric: no confusion, no anxiety. Genitourinary: denies vaginal discharge, denies incontinence, denies dysuria, denies hematuria, denies urinary frequency, denies amenorrhea, denies menorrhagia, denies abnormal bleeding, denies pelvic pain, denies genital sores, and denies decreased libido. Physical Exam Vitals & Measurements HT: 162.0 cm HT: 162 cm WT: 75.0 kg WT: 75.0 kg BMI: 28.58 General Appearance: alert , no acute distress, well nourished, well developed female. Genitourinary: bladder nonpalpable, no flank pain. Procedure Operative Information Anesthesia Type: Local Procedure: Local Cystoscopy with Urethral Dilation Complications: None Surgical risks, benefits, details of the procedure have been explained to the patient. Full informed consent has been obtained. Intraoperative Information Prepped: Patient is brought back to the endoscopy suite. Patient is placed in modified dorso/lithotomy position. Patient prepped in the usual fashion with Betadine solution. 2% Xylocaine Jelly is placed per Urethra. After waiting several minutes, the Cystoscope is introduced. The Urethra is: Tight unable to pass scope. The Bladder: Abnormal c.c. lesions diffusely on the floor , no calin prolapse, a.v. or urethral discharge Trabeculated: None (0) The Ureteral orifices: Show efflux of clear urine The Urethra was dilated to: 18-30_ Tamazight with sounds. urethra bled. dry. Removal: Cystoscope is removed. The patient tolerated it well. Postoperative Information Patient is discharged home with antibiotic coverage. Follow up arranged. Assessment/Plan 1. Recurrent UTI (N39.0: Urinary tract infection, site not specified) Cysto UD done in office today. Continue cranberry, probiotics, and mannose. Start Amoxicillin 500mg daily for 3 months. timed/double voids. f/u 4 months. ? R eswl then. 2. Bilateral kidney stones (N20.0: Calculus of kidney) 4mm right to inferior renal calculus identified. No ureteral calculus. Pelvic vascular calcifications. 3 mm left nephrolithiasis. Follow-up With When Contact Information SHAYNA JENNINGS, COLLINS Elias In 4 months 06/27/2022 EDT [facility] [address] [place] [address]- Additional Instructions: Patient Education Kidney Stones, [id number] Devonte Nickerson personally scribed for Dr. Saez on 02/25/2022 15:18:41. . Documentation recorded by the diamondibDevonte dodd, accurately reflects the services(s) I performed and decisions made by me. Authenticated by Dr. Saez on 02/25/2022 15:21:29. Problem List/Past Medical History Ongoing Bilateral kidney stones Insomnia Recurrent UTI Tachycardia Historical No qualifying data Procedure/Surgical History Myringotomy (1989), Tonsillectomy (1989). Medications amoxicillin 500 mg Cap, 500 mg= 1 cap(s), Oral, Daily CeleXA 20 mg Tab, Oral, Daily Dulcolax Stool Softener, Oral, BID Multi Vitamin+ Progesterone (micronized), Oral, Daily Allergies Banana (Itchy) Melon (Itchy) Vicodin (Nausea) Social History Tobacco Never (less than 100 in lifetime) Tobacco Use:. Never Smokeless Tobacco Use:., 02/25/2022 Family History Diabetes mellitus type 2: Grandparent. Heart disease: Mother. High cholesterol: Father. Kidney disease: Mother. Kidney stone: Mother. Lung cancer: Grandparent. Diagnostic Results Tests Reviewed: Reviewed UA. [facility] Comment on above: Result Comment: Elec tronically Signed By: Kwadwo SAEZ MD R\.br\Date and Time Signed: 02/25/22 15:21 EDT\.br\Electronically Co-Signed By: Devonte Echeverria\.br\Date and Time Co-Signed: 02/25/22 15:19 EDT Pre-Certification Formon Pre-Certification Form [id number] 0#1.00CD:127 [facility] Reminderson 02-10-2022 Reminders - From: Kristyn Echeverria MA To: EU - Clinical; Sent: 02/04/2022 16:03:36 EDT Show up: 02/08/2022 16:03:00 EDT Subject: Urine Culture Reminder/Recall Urine culture Pt is currently . ANNITA addressed [facility] C Urineon 02-07-2022 Bacteria identified Cx Nom (U) Microbiology PROCEDURE: Urine Culture [R1] SOURCE: U Random BODY SITE: COLLECTED DATE/TIME: 02/04/2022 16:00 EDT RECEIVED DATE/TIME: 02/05/2022 13:57 EDT START DATE/TIME: 02/05/2022 13:57 EDT FREE TEXT SOURCE: SAIDA ABAD PA-C, PA-C, SAIDA Dodd FINAL REPORTS Final Report [] Verified Date/Time: 02/07/2022 09:59 EDT >100,000 cfu/ml Escherichia coli SUSCEPTIBILITY RESULTS LEGEND: S=Susceptible, N/R=Not Reported, Blank=Data not available, or drug not advisable or tested, I=Intermediate, ESBL=Extended spectrum beta-lactamase, R=Resistant, TFG=Thymidine-depend ent strain, WESOTN=Beta-lactamase positive, NISH=mcg/m;(mg/L), S*=Predicted susceptible interp, R*=Predicted resistant interp EC Antibiotic NISH Dilutn NISH Interp Amikacin <=16 S Ampicillin >16 R Ampicillin/ >16/8 R Sulbactam Aztreonam <=4 S Cefazolin 16 I Cefepime <=2 S Cefoxitin <=8 S Ceftazidime <=1 S Ceftazidime/ <=8 S Avibactam Ceftriaxone <=1 S Ciprofloxacin <=1 S Ertapenem <=0.5 S Gentamicin >8 R Levofloxacin <=2 S Meropenem <=1 S Nitrofurantoin <=32 S Piperacillin/ <=16 S Tazobactam Tetracycline >8 R Tigecycline <=2 S Tobramycin <=4 S Trimethoprim/ >2/38 R Sulfa Performing Locations R1: This test was performed at: [facility], [address] [place] [address], [id number]- , , Normal [facility] Comment on above: Performed By: #### [id number] #### [facility] [address] [place] [address] Performed By: #### [id number] ####[facility] [address] [place] [id number] Coding Summary.on 02-07-2022 Coding Summary. [id number] Gh0bWw+PGhlYWQ+PE1FV JAcU27cxBUgxE1PZ6tPI E6NBKMHACWVNH7GXI7tr TK5GZbzD4AwyxJz OrgvlLTuHC39UXv2ZEX6 dHnuPGsdsI5oxFOoP0t8 MjDzCF63oK40DGqwEPLn TbI1TjSqqdjwqIWl J1ipUrAxeUBcXil+PHRh YmxlIHdpZHRoPScxMDAl FjKdnChiME1mSv4lZPDb LWNvbGxhcHNlOiBj q5ypBBWeKMquJZ0loCkp E3OpyYG5EFJtw2x7Cy05 dHI+NSGnXVQ7fTxsVFjc m374OtTdx3yeALI9 hPEdDWwzWLI9K89vz6Z3 EUJgDHBeLAM0qKE2mR6o sNkwgxinA5GvtSMlVrF1 JPD9mPMfwP7mkGwv vcvkrC2nQxr+G68WUR8D VUDRXU9WSng0M1XrHbwp dHI+ZM39PZJoMI50nESp nAXtk4eghTi1PtHx BUZuYTV9aVfbLXfzk1Po QIIjS48nqWBlc3S6MAFm mAfajYKbBsAbvOD4tI3l TPpxzbghk3zyqsls Fxwdj4nilk27aK38U20c YCftSALzLKR1UUVrOIDx gRrcgh2itW4vIw5+IDxj x1est3vyrBt4XiWa HTUecrBfzDsuIFP0s9Li Ug36H6GdzShhs4KeHor1 yh52aRHud1Z3wQH0IZmx EKUnuN6lNSjmQfH2 EAXkZdIllR10yILeLYsj Ah1biEjhdRagYG7uVMAp zsrkORGaoQ2vVEGgtEUx lRexVG9kLMEitxsb i013GmUsRDY1OFGecFDy U7LbyC5rGeZqZHQqOOOx D3GreOMmBMqaA241EEay BzG2STYsmrVrO5Ft TLZjmDrzCyJ5z5S1Sl2Z n7WywlxzSEC2OElhVIEt DrHxBcKoCmT6C9IjVmi4 KRYfzCywTY2bZ4Lj FILoybdsdeolvBE1ORBz LOXglG02rLGlMYdzBf6c o4U5j174HVXiMACwqQ24 Ac3vtZalIOMprMQC qZ2oheluv8vrxkezTeRp MCIpTVk7ZDi3GCZjiHnh VcBwDGR4GtX1UGS0xKQm kI0tkXknoebvfU7l Oyc+N08rtC9fYCW3ZCU3 ccngQNNnnpHkNE31JH17 N2GmQidkbYJntYF+PGRp fcYkhVtkQR1sYvBm k1hft3FwLSidU9ZeGSXr JWqlAxr8IUYfOOB0cPL7 oN9vBMTqGBsnz3Q8yPD3 V3AhwrSquo7zs8gd WHOjXWnmC53hiSBio9F4 UCDbsMH8DQUcyStxSqEy aB61Dip+LRTbgUatx8Aw Kyjpf3wlo7jjpBp2 IjMwJSIgdmFsaWduPSJ0 j3QoJs14Y24cUQmzPANu ZBIfJRPvKSKdsLtkga9t pF9lSi1+PGNvbCB3 bMM3rJ6dAWTkHjX7JMtc S359LfOuvMOwSeoje7zx i2mnmCw1OoNqFLHpgoSl fUcuIDK6m1CyGc58 L00pRXnbPJWzDXSlNMLr GRObaSchuf2byW0pWy7+ JQ1lw7wcqp03oR12iRE+ NLOlEBI7cOceVWab YQCliO4sFXkrNlC2DEIx XcYqzX01oGTaVTjsZj9p bTijfZexNV0xAAYuzkcj w030DsHce9hdCFJd cFWvUMbbXQY5S23pz9Z2 RXWkDDRcIUQ8vMJ3fJ7i bGlnbjogbGVmdDsgdmVy rWpeNRfyRVfsH126 IHRvcDsnPlBhdGllbnQg IiBzGRy3P4LiNqt9VEOe fPvuCE4zxURuKYcnLu3i sXnrqEoyUS0lHSGk gqnyq444CkVre5saHGMe bUXxWAlyCMN9Z67ro6R6 GZWtWLHsUBK5bEP1lN1j bGlnbjogbGVmdDsg nrQbpKjgZTfoOUvbT823 IHRvcDsnPkJpcnRoIERh pSB3YR23KU38wKVug7N6 gWH3I2SpJEWjzzbz hcrcoBF6JIXiVYHybR47 Mx1gtFlgRr5oPIEpKUM4 DWUggUQxC3XgsI8cCwXz LIDrLYKnC0XcaIRx DVgtV688ULgrSrI7LLUi meLcY9FjEDWymEnaEyF9 v3L3By2OU2Q0BW05CR76 sJApy1N4mZX2D1Kz YIPkeskqtyoxeDL8LFHz HRMwfL81Xz9vbMeaBz4b VBZqFPB8GQZavDBgG9Ir rW3mSqAzCVGtKUFf I4ZyzDQaXQvuP734HOvr BbX3NLLlenPxS9ClGEAs yEvzZgA7m5Q2Np4BSNk3 MH08EA66xHVbt5F1 uVF0I1OaRKVeoqjqlylh eSI3PFEuTRYetK13Gb1b wYdaOs3zCJSwWKF1PVRq lIJvU0OwtH6vKuLh RUXiFXXkC6HiyIOgXNbg Y527PIcyZkX2OUZaxuQz L3IvZPAkrItrNmD4p7L8 Pn6NOLJnTJ72BZV2 cFV5ZY37GB04Q4IhYvtd dGFibGU+PHRhYmxlIHdp ZHRoPScxMDAlJyBzdHls KA8fXa2rDHFgSHOd pKhkdKJxBtLfr6ekXIGt TQcrSK4xqWjdU8YaxLR6 NDSah9g4Yb07J13wK5Yg dXA+ANWdqEY8uVM6 bL7eWrQiTpX7GIgsF190 QlAcnRLrBaxxg1gkm8dd wUt9DxU1ZFKcbyKolOzu IIE1o3GjVn82N73z IHdpZHRoPSIxNSUiIHZh fAdcyd4loC9wMx3+PGNv pSV2uBZ7iO2bLeAcEbH0 RPoxJ198WkMziIHo Bhcvo0zam4vrpCb3OxTw PTXbgpRoaUieVPJ0b7Jo Lz32J3JtcJahn8ZyFqw5 ei52gPSmx0N5oNK1 W9GgNHWqeagbhEJwlCcu RV7wWHEzjbcvMMCayR6d FFQrJ2s4PmRxJgS2YXso U6WxmsJ4LTUbxWQt GQjeRGW4S91my0Q1ELUu MYRvFGS7lDD6pZ2fkOia bjogbGVmdDsgdmVydGlj QSboPVujW342BMAt dXylPLMtgN1bAEYnzTSg wPzkJW8uWIZmezxkNn5Q LRJRPGJBIF3CPPsqoTJ+ TTZiARU3oGutGJwd HECcfQ7iASWgA1h2QdXo NqQ1WEzfP0LxSEHbtwkd Rp63bW1xKuTyQoS1EZlk F1JwwhX1MQZgaTTh LHuuTSM6H06fe4S2VJOb FXSrEBK9jHR5xB8ibYud bjogbGVmdDsgdmVydGlj AZabRWjtZ126ITDo vIccVrQ4AwK1EcR0IPU2 F4PgSnm5DHWfzQmaXA7q yPDxMUfcZo2ghJjiyDkg HE0iGNWftgkgZXXv bV1eLJEiaFSalRvnDF7n RHNufrmqr908DhBmHDD4 TRAapAXcN4NlhO2nPnWq FNQcBXQeH5ZmmONw LYgnN325DWmaLmA4VHJw ftOtO3HaKZCcfDvrIcO3 v1B5Tl8mTXKMZAOczxjr dGQ+DOKtXPF8iWan TMwuVSVkxA4tAQBtJ3v2 JzTcJuT3EYfnZ5FcHBGz sttwLx84tQ1xZvChXlC6 IUydS1ZcwiW7BGDx oAZnGGexYED2T73bg9V3 QQMzGTBhPPJ2bBV6rQ9t bGlnbjogbGVmdDsgdmVy fYyjEQhcRDqmX826 IHRvcDsnPkZlbWFsZTwv dGQ+KEFyWDN8qTmkRIit QBJawN3aUMEhX5f7FkOa VrN3FUoxX4SqXHSb xqmqKq64qQ9cZjHaUpO8 ATmxN3CvcgU4BMEduCPx XPhoBFJ6U56iy8Y3DICw PKAlXHO8yDV3sB5t bGlnbjogbGVmdDsgdmVy eCluEWfuEPqdZ879RGOc rIzvUhfkQmVHej6gUO7i ZjwvdGQ+QG35xx03 K7ZfIyvtUrg1TJEmRFW4 nTD8vQ3wMQEdBFaby3U4 oME8U6OifvYdyh1rp7yr SDEnZMosT68rtOUp i4A7GJDsaRD1BLRemHbi MgFymL31Urq+PGNvbGdy v9UcBjeew4mql2hkpZe2 IjMwJSIgdmFsaWdu HRC1v8DtFx85Y65nOJtg ZHRoPSIzMCUiIHZhbGln gr1tuR2rVe2+PGNvbCB3 yLS9eV6wTgEdVrQ3 JQsgF957GmXrrAEiVtzp f1qwg4sooSq1PyDtJXLt ilTlnKmdUQG0l8YaQj34 G7DwjIacv9KiYty7 fx93lDLkl0B8nFG1S2Oy VTGakskloGJluKnaWG0r ZPHtiaouWLAjlE2eQKOn V4c5SmJmBrD6HEia X8RngxJ6LCIxxAEqYWGe eKYNpY7arfyig5wjnncz NqTdXWVqGBt4WAj7GPCw iSjcVjWaCLW6IeX9 EZO9gNJegD1oqQjfdumh aK8sPfp+CCi1m1eprFTd XN6njJT4CL98XA84nYIa g8P9nDQ5P4LlYDPh kpeuofeyrDX4CEOmDMIq vJ54Ap4iaJojWn7nWUUk SSH0YFJuzYXjS1MfqI3u CzZsUKQuQGMzN0Hv sGCdWYpfJ813UPkcReA6 VVIpwzKvL9ZaJADenAbc AxP8y8R5Qz8XBL48ED83 TE69iTUlo8L9rLT2 L5VfZJFtslrcbzhbmYT3 EBQxFIHpcS79Gu6qnBjj Iy8gQBDeFXL3NEIkoYZh G3SraM8nZnUvFCRf PTXpV1LsxCOzSQdmG667 UGgwVqG9ZAMadfWnM8Vd MAZgzJblUiL2j5M4Ls3Z Ha29BC44KE69eVMi h9M7tVF6H9IjKTMxkspk rdvfpRS7JFDiWYXerZ94 Ko5yfXdeAh2jWZOiGQB3 AVLxhFOrA0CnnG2o KvIeBYXbTIQdH4KfzFRl BVwaH190FAcgXmP1QOVh cpUtV0ApPANnbSigGlR7 g9G4Rj9ZMAwqyli1 V8TeHbyerWL+MQ49KRWg YU85kDDwiKXqf2eixWa5 MaPdHCSmRYR1oUgeMJrb f8MtAEBhK68zxDVv c2U6 (more content not included)... Normal [facility] US renal BIon 02-07-2022 US renal BI [facility] [place] [address] Ultrasound Report Signed Patient: Jessa Chatman MR#: [id number] 9 : 1985 Acct:[id number] Age/Sex: 36 / F ADM Date: 02/07/22 Loc: Room: Type: [facility] Attending Dr: Saida Abad PA-C Ordering Provider: Saida Abad PA-C Date of Service: 02/07/22 US/US renal BI: RECURRENT UTI Copies to: Saida Abad PA-C Bilateral renal ultrasound HISTORY: Chronic UTIs. COMPARISON:None RIGHT kidney measures 10.9 x 5.0 x 5.6 cm. LEFT kidney measures 11.4 x 6.1 x 4.7 cm. No hydronephrosis identified. The volume of urinary bladder is 526 cc. The post residual urinary bladder is 38 cc. No renal lesion identified. Bilateral ureteral jets identified. US/US renal BI IMPRESSION: No hydronephrosis. Impression dictated by: Mark Stark M.D.02/07/2022 3:24 PM Dictation Location: [facility]--13 Tech: Saida Gilliland Transcribed By: KARI 02/07/22 1524 Dictated By: Mark Stark DO 02/07/22 1522 Signed By: 02/07/22 1524 [facility] XR KUBon 02-07-2022 XR KUB [facility] [place] [address] [place] [address] XRay Report Signed Patient: Jessa Chatman MR#: [id number] 9 : 1985 Acct:[id number] Age/Sex: 36 / F ADM Date: 02/07/22 Loc: Room: Type: [facility] Attending Dr: Saida Abad PA-C Ordering Provider: Saida Abad PA-C Date of Service: 02/07/22 XR/XR KUB: ABD PAIN Copies to: Saida Abad PA-C Single view of abdomen COMPARISON: None HISTORY: Chronic UTIs. Crowding. Nondistended air-filled small bowel loops identified. 4 mm RIGHT to inferior renal calculus identified. No ureteral calculus. Pelvic vascular calcifications. 3 mm LEFT nephrolithiasis. No soft tissue mass seen. Bony structures are intact. XR/XR KUB IMPRESSION: Bilateral nephrolithiasis. Impression dictated by: Mark Stark M.D.02/07/2022 3:13 PM Dictation Location: [facility]-13 Transcribed By: KARI 02/07/22 1513 Dictated By: Mark Stark DO 02/07/22 151 Signed By: 02/07/22 151 [facility] Patient Educationon 02-05-20 Patient Education Pharmacology Antibiotic Medicine, Adult Antibiotic medicines are used to treat infections caused by bacteria, such as strep throat and urinary tract infection (UTI). Antibiotic medicines will not work for viral illnesses, such as colds or the flu (influenza). They work by killing the bacteria that is making you sick. Antibiotics can also have serious side effects. It is important that you take antibiotic medicines safely and only when needed. When do I need to take antibiotics? Antibiotics are medicines that treat bacterial infections. You may need antibiotics for: ? UTI. ? Strep throat. ? Meningitis. This infection affects the spinal cord and brain. ? Bacterial sinusitis. ? Serious lung infection. You may start antibiotics while your health care provider waits for test results to come back. Common tests may include throat, urine, blood, or mucus culture. Your health care provider may change or stop the antibiotic depending on your test results. When are antibiotics not needed? You do not need antibiotics for most common illnesses. These illnesses may be caused by a virus, not a bacteria. You do not need antibiotics for: ? The common cold. ? Influenza. ? Sore throat. ? Discolored mucus. ? Bronchitis. Antibiotics are not always needed for all bacterial infections. Many of these infections clear up without antibiotic treatment. Do not ask for or take antibiotics when they are not necessary. How long should I take the antibiotic? You must take the entire prescription. Continue to take your antibiotic for as long as told by your health care provider. Do not stop taking it even if you start to feel better. If you stop taking it too soon: ? You may start to feel sick again. ? Your infection may become harder to treat. ? Complications may develop. Each course of antibiotics needs a different amount of time to work. Some antibiotic courses last only a few days. Some last about a week to 10 days. In some cases, you may need to take antibiotics for a few weeks to completely treat the infection. What if I miss a dose? Try not to miss any doses of medicine. If you miss a dose, call your health care provider or pharmacist for advice. Sometimes it is okay to take the missed dose as soon as possible. What are the risks of taking antibiotics? Most antibiotics can cause an infection called Clostridioides difficile (C. difficile or C. diff), which causes severe diarrhea. This infection happens when the antibiotics kill the healthy bacteria in your intestines. This allows C. diff to grow. The infection needs to be treated right away. Let your health care provider know if: ? You have diarrhea while taking an antibiotic. ? You have diarrhea after you stop taking an antibiotic. C. diff infection can start weeks after stopping the antibiotic. Taking an antibiotic also puts you at risk for getting a bacteria that does not respond to medicine (antibiotic-resistan t infection) in the future. Antibiotics can cause bacteria to change so that if the antibiotic is taken again, the medicine is not able to kill the bacteria. These infections can be more serious and, in some cases, life-threatening. Do antibiotics affect control? control pills may not work while you are on antibiotics. If you are taking control pills, continue taking them as usual and use a second form of control, such as a condom, to avoid unwanted . Continue using the second form of control until your health care provider says you can stop. What else should I know about taking antibiotics? It is important for you to take antibiotics exactly as told. Make sure that you: ? Take the entire course of antibiotic that was prescribed. Do not stop taking your antibiotics even if your symptoms improve. ? Take the correct amount of medicine each day. ? Ask your health care provider: ? How long to wait in between doses. ? If the antibiotic should be taken with food. ? If there are any foods, drinks, or medicines that you should avoid while taking the antibiotics. ? If there are any side effects you should be aware of. ? Only use the antibiotics prescribed for you by your health care provider. Do not use antibiotics prescribed for someone else. ? Drink a large glass of water along with the antibiotics. ? Ask the pharmacist for a syringe, cup, or spoon that properly measures the antibiotics. ? Throw away any leftover medicine. Contact a health care provider if: ? Your symptoms get worse. ? You have new joint pain or muscle aches that begin after starting the antibiotic. When should I seek immediate medical care? ? You have signs of a serious allergic reaction to antibiotics. If you have signs of a severe allergic reaction, stop taking the antibiotic right away. Signs may include: ? Hives, which are raised, itchy, red bumps on the skin. ? Skin rash. ? Trouble breathi (more content not included)... Normal [facility] Urology Office/Clinic Noteon 02-04-2022 Urology Office/Clinic Note Chief Complaint referred for recurrent UTI. HPI Staff Jessa is here today as a new patient referred by [employer] for recurrent UTI.Started Cleocin 300mg on 12/24/21 1 tab 3 x daily for 7 days no refills. UA on 11/25/21 showed dark yellow cloudy, small maicol, pos nit, trace protein.Pt states that for her UTI she is just having cloudy and odor to her urine but in the beginning did have the pain and discomfort but that has gone away states she has been myles having UTI often for about 2 years now. The UTI started in like March of 2020 after she had a still born and then got again then miscarried and got again and delivered her baby in October 2021. Dysuria: _Denies Incomplete bladder emptying: _Denies Hematuria: _Denies visible blood Frequency: _Every 2-3 hours Urgency: _Denies Nocturia: _0-1 time a night due to the environment currently breast feeding so when she gets up it's to pump Stream: _steady stream Leaking: _Denies Post void dripping: _Denies Wearing pads/ Depends: _Denies Urge incontinence: _Denies Stress incontinence: _Yes sometimes but only a little but could be from having a child. Incontinence without Sensory Awareness: _Denies Abdominal pain: _Denies Flank pain: _Denies Sexual complaints: _ History of Present Illness staff HPI reviewed and agree. Review of Systems PHQ Score Initial Depression Screen Score: 0 no fever, chills, malaise, myalgia. no rash/lesions. no chest pain, palpitations, or SOB. no abdominal pain, nausea, vomiting. no unilateral calf swelling, redness, pain Physical Exam Vitals & Measurements RR: 16 HT: 162 cm HT: 162.0 cm WT: 75.0 kg WT: 75.0 kg BMI: 28.58 General: nontoxic, NAD Mouth: moist mucosa Lungs: normal respiratory effort Cardio: regular rate, good distal perfusion Abdomen: nondistended, no suprapubic distention or tenderness, no CVA tenderness Neurologic: Grossly normal Skin: No rashes or suspicious lesions Assessment/Plan 1. Recurrent UTI (N39.0: Urinary tract infection, site not specified) pt is 3 mos . says over the past 2 years or so she has had UTIs pretty much every month. she was a large portion of this time (lost at 35 wks, then got again and just delivered that baby in Oct). she was on suppressive abx for a while during both pregnancies. typical UTI sx include burning, pressure, odor, cloudiness. most recently was on Cleocin x 7d in Dec per [employer]. pt has not noticed any connection with intercourse, she does urinate and shower afterwards. she drinks plenty of fluids daily, well hydrated. UA today appears infected again and pt is symptomatic. will send for cx and then treat with extended course abx. pt is currently . Today we discussed the following methods to decrease frequency of UTIs: 1) I discussed that there is evidence that herbal supplements may help - cranberry, probiotics, and d-mannose. 2) proper hygiene habits (wipe front to back every time, avoid baths & hot tubs, avoid any scented [employer] products, urinate after sexual activity, etc) PVR was low. no hx stones, will order KUB/CECILLE to rule out as source of recurrent infection. will schedule cysto possible UD to rule out anatomic etiology of infections. Pt will start daily OTC supplements for prevention. if none of these measures work, we will likely need to do another round (90d or more) of daily suppressive abx. Ordered: E&M of New Patient Moderate 45-59 Min 53313 Urnls Dip Stick Auto w/o Microscopy POC 33960 US Renal XR Abdomen 1 View Orders: Urine Culture f/u for cysto Follow-up With When Contact Information return for cysto Additional Instructions: Patient Education Antibiotic Medicine, Adult Problem List/Past Medical History Ongoing Insomnia Tachycardia Historical No qualifying data Procedure/Surgical History Myringotomy (1989), Tonsillectomy (1989). Medications CeleXA 20 mg Tab, Oral, Daily Dulcolax Stool Softener, Oral, BID Multi Vitamin+ Progesterone (micronized), Oral, Daily Allergies Banana (Itchy) Melon (Itchy) Vicodin (Nausea) Social History Tobacco Never (less than 100 in lifetime) Tobacco Use:. Never Smokeless Tobacco Use:., 02/04/2022 Family History Diabetes mellitus type 2: Grandparent. Heart disease: Mother. High cholesterol: Father. Kidney disease: Mother. Kidney stone: Mother. Lung cancer: Grandparent. Lab Results Ambulatory Point of Care Results Bilirubin Urine Dipstick: Negative (02/04/22 14:41:00) Blood Urine Dipstick: Negative (02/04/22 14:41:00) Glucose Urine Dipstick: Negative (02/04/22 14:41:00) Ketones Urine Dipstick: Trace - 5 mg/dl (02/04/22 14:41:00) Leukocytes Urine Dipstick: 2+ Moderate (02/04/22 14:41:00) Nitrite Urine Dipstick: Negative (02/04/22 14:41:00) Protein Urine Dipstick: Negative (02/04/22 14:41:00) Specific [place] Urine Dipstick: 1.025 (02/04/22 14:41:00) Urine Appearance Urine Dipstick: (more content not included)... Normal [facility] Comment on above: Result Comment: Elec tronically Signed By: SAIDA ABAD [email or web address]\Date and Time Signed: 02/04/22 16:12 EDT Vital Signs Date Time Vital Sign Value Performing Clinician Facility 06-25-2022 09:14-0400 Blood Pressure Location Jalen Mora [facility] [place] 06-25-2022 09:14-0400 Diastolic blood pressure 86 mm[Hg] Jalen Mor[facility] [place] 06-25-2022 09:14-0400 Heart rate 77 /min Jalen Mor[facility] [place] 06-25-2022 09:14-0400 Systolic blood pressure 130 mm[Hg] Jalen Mora [facility] [place] 06-18-2022 10:45-0400 Body height 162.56 cm Devin Lam Other [employer] Other 06-18-2022 10:45-0400 Body mass index (BMI) [Ratio] 28.49 kg/m2 Dvein Lam Other [employer] Other 06-18-2022 10:45-0400 Body weight 75.3 kg Devin Lam Other [employer] Other 06-18-2022 10:45-0400 Diastolic blood pressure 76 mm[Hg] Devin Lam Other [employer] Other 06-18-2022 10:45-0400 Respiratory rate 16 /min Devin Lam Other [employer] Other 06-18-2022 10:45-0400 SaO2% (BldA) [Mass fraction] 99 % Devin Lam Other [employer] Other 06-18-2022 10:45-0400 Systolic blood pressure 118 mm[Hg] Devin Lam Other [employer] Other 05-13-2022 16:00-0400 Body height 162.56 cm Devin Lam Other [employer] Other 05-13-2022 16:00-0400 Body mass index (BMI) [Ratio] 29.73 kg/m2 Devin Lam Other [employer] Other 05-13-2022 16:00-0400 Body weight 78.56 kg Devin Lam Other [employer] Other 05-13-2022 16:00-0400 Diastolic blood pressure 68 mm[Hg] Devin Lam Other [employer] Other 05-13-2022 16:00-0400 Respiratory rate 16 /min Devin Lam Other [employer] Other 05-13-2022 16:00-0400 SaO2% (BldA) [Mass fraction] 97 % Devin Lam Other [employer] Other 05-13-2022 16:00-0400 Systolic blood pressure 114 mm[Hg] eDvin Lam Other [employer] Other 04-16-2022 10:30-0400 Body height 162.56 cm Devin Lam Other [employer] Other 04-16-2022 10:30-0400 Body mass index (BMI) [Ratio] 30.72 kg/m2 Devin Lam Other [employer] Other 04-16-2022 10:30-0400 Body weight 81.19 kg Devin Lam Other [employer] Other 04-16-2022 10:30-0400 Diastolic blood pressure 80 mm[Hg] Devin Lam Other [employer] Other 04-16-2022 10:30-0400 Respiratory rate 16 /min Devin Lam Other [employer] Other 04-16-2022 10:30-0400 SaO2% (BldA) [Mass fraction] 99 % Devin Lam Other [employer] Other 04-16-2022 10:30-0400 Systolic blood pressure 130 mm[Hg] Devin Lam Other [employer] Other Encounters Encounter Date Encounter Type Care Provider Facility Start: 10-28-2023 End: 10-28-2023 ambulatory MOUNA LUIS M Not Available Start: 10-23-2023 End: [facility] Start: 10-08-2023 End: 10-08-2023 ambulatory MOUNA LUIS M Not Available Start: 09-23-2023 End: 09-23-2023 ambulatory MOUNA ANGEL Not Available Start: 04-15-2023 End: 04-15-2023 ambulatory Devinkye Arroyoelias Other [employer] Other Start: 04-15-2023 Telephone encounter Devin Lam [facility] Start: 01-19-2023 End: 01-19-2023 ambulatory Devin Lam Other [employer] Other Start: 01-19-2023 Telephone encounter Devin Lam [facility] Start: 12-19-2022 End: 01-07-[address] MOUNA ANGEL . Facility:[facility] Start: 12-05-2022 End: 12-06-[address] MOUNA ANGEL . Facility:[facility] Start: 11-19-2022 End: 11-19-[address] MOUNA ANGEL . Facility:[facility] Start: 11-16-2022 Encounter for preprocedural laboratory examination DR MOUNA ANGEL . [facility] Start: 11-13-2022 End: 11-14-[address] MOUNA ANGEL . Facility:[facility] Start: 11-13-2022 End: 11-14-2022 Encounter for preprocedural laboratory examination DR MOUNA ANGEL . Facility:[facility] Start: 11-12-2022 End: 11-12-[address] MOUNA ANGEL . Facility:[facility] Start: 11-12-2022 End: 11-13-[address] MOUNA ANGEL . Facility:[facility] Start: 09-01-2022 End: 09-01-[address] MOUNA ANGEL . Facility:[facility] Start: 07-30-2022 End: 07-30-[address] MOUNA ANGEL . Facility:[facility] Start: 07-03-2022 End: 07-03-2022 Patient encounter procedure Dasia Addison [facility] Start: 06-25-2022 End: 06-25-2022 Patient encounter procedure Jalen Mora [facility] Start: 06-18-2022 End: 06-18-2022 ambulatory Devin Genaro Other [employer] Other Start: 06-18-2022 Office outpatient vi sit 15 minutes Devin Cruzs [facility] Start: 05-13-2022 End: 05-13-2022 ambulatory Devin Cruzs Other [employer] Other Start: 05-13-2022 Office outpatient vi sit 15 minutes Devin Cruzs [facility] Start: 04-16-2022 End: 04-16-2022 ambulatory Devinkye Arroyos Other [employer] Other Start: 04-16-2022 Office outpatient vi sit 25 minutes Devin Cruzs [facility] Start: 04-15-2022 End: 04-15-2022 Lab Drop off SAIDA ABAD [facility] Start: 04-15-2022 End: 04-15-2022 Patient encounter procedure Kwadwo SAEZ [facility] Start: 03-06-2022 End: 03-06-2022 Lab Drop off Kwadwo SAEZ [facility] Start: 03-06-2022 End: 03-06-2022 Patient encounter procedure Ravinder MCCAULEY [facility] Start: 02-04-2022 End: 02-04-2022 Lab Drop off SAIDA ABAD [facility] Procedures Date Procedure Procedure Detail Performing Clinician Start: 11-09-2013 Colonoscopy and biop sy of colon Kwadwo SAEZ Start: 11-09-1989 History of tonsillectomy Kwadwo SAEZ Start: 11-09-1989 Tonsillectomy SAIDA ABAD Start: 11-09-1989 Tympanotomy SAIDA [place]KEFIELD Immunizations Immunization Date Immunization Notes Care Provider Fa cility 11-09-2020 SARS-CoV-2 mRNA (tozinameran 5y-11y) vaccine Jalen Mora [facility] Comment on above: Result Comment: 2 [facility] 03-10-2015 tetanus toxoid, reduced diphtheria toxoid, and acellular pertussis vaccine, adsorbed Kwadwo SAEZ [facility] Comment on above: Reason for Medicatio n: Other (see comment) NEGATED: Highlighted row has not occurred!02-19-2019 influenza, seasonal, injectable Patient Objection Devin Lam Other [employer] Other Payers Date Payer Category Payer Unknown [id number] 2.16.84 [id number] 1986 Unknown [id number] 2.16.84 [id number] 1986 Unknown [id number] 2.16.84 [id number] 1986 Unknown [id number] 2.16.84 [id number] 1986 Unknown [id number] 2.16.84 [id number] 1986 Unknown [id number] 2.16.84 [id number] 1986 Unknown [id number] 2.16.84 [id number] 1986 Unknown [id number] 2.16.84 [id number] 1986 Unknown [id number] 2.16.840 .[id number] 1986 Unknown [id number] 2.16.840 .[id number] 1986 Unknown [id number] 2.16.840 .[id number] 1959 Unknown [id number] 2.16. [id number] 1959 Unknown [id number] Social History Date Type Detail Facility Start: 02-04-2022 End: 02-25-2022 Tobacco smoking status Never smoked tobacco (finding) [facility] Tobacco smoking status Never [facility] Sex Assigned At Female [facility] Functional Status Date Assessment Result Facility 06-25-2022 Functional Status N/A [facility] Clinical Notes 02-04-2022 to 10-23-2023 Note Date & Type Note Facility 10-23-2023 Note F/U with OB and mate rnal medicine as scheduled [facility] 10-23-2023 Note [facility] CARDIOLOGY PROGR ESS NOTE HPI: Jessa Chatman is a 38 y.o. female here for tachycardia during Patient here per Dr. Angel for tachycardia in . She is currently 32w5d along. [employer] started her on metoprolol tartrate 25mg daily a few weeks ago, which as helped with palpitations. HR gets as high as 147 at rest sometimes. This issue went away after the of her last baby. Admits that OB started her on Metoprolol tartrate 25 mg daily. She states that her fast heart rate typically only lasts maybe a minute and then it resolves, never lasts long. Denies chest pain, shortness of breath, lightheadedness, dizziness or syncope with the fast heart rate. She had very similar symptoms with the end of her last and after of her baby the tachycardia resolved. She does admit since her OB started her on metoprolol her symptoms are a touch better she still has a couple occurrences here and there of fast heart rate but still does not last very long. Review of Systems Cardiovascular: Positive for dyspnea on exertion. Neurological: Positive for light-headedness. All other systems reviewed and are negative. Visit Vitals BP 122/70 (BP Location: Left arm, Patient Position: Sitting) Pulse 98 Ht 1.575 m (5' 2 ) Wt 83 kg (183 lb) SpO2 95% BMI 33.47 kg/m??? Smoking Status Never BSA 1.91 m??? Allergies Allergen Reactions Hydrocodone-Acetaminophen Other, Nausea And Vomiting, Nausea Only, Unknown and GI intolerance Medications: Current Outpatient Medications on File Prior to Visit Medication Sig Dispense Refill aspirin 81 mg chewable tablet CHEW 1 TABLET AND SWALLOW DAILY FOR 220 DAYS. cephalexin (Keflex) 500 mg capsule metoprolol tartrate (Lopressor) 25 mg tablet 25 mg in the morning. polysaccharide iron complex 180 mg iron capsule Take 1 tablet by mouth in the morning. No current facility-administered medications on file prior to visit. Physical Exam: Constitutional: Appearance: Normal appearance. Without apparent distress, HENT: Head: Normocephalic and atraumatic. Nose: Nose normal. Mouth/Throat: Mouth: Mucous membranes are moist. Eyes: Extraocular Movements: Extraocular movements intact. Conjunctiva/sclera: Conjunctivae normal. Neck: Vascular: No JVD. Cardiovascular: Rate and Rhythm: Normal rate and regular rhythm. Pulses: Dorsalis pedis pulses are 3 on the right side and 3on the left side. Posterior tibial pulses are 3 on the right side and 3 on the left side. Heart sounds: Normal heart sounds, S1 normal and S2 normal. Pulmonary: Effort: Pulmonary effort is normal. Breath sounds: Normal breath sounds. Abdominal: General: Bowel sounds are normal. Palpations: Abdomen is soft. Musculoskeletal: General: Normal range of motion. Cervical back: Normal range of motion. Right lower leg: No edema. Left lower leg: No edema. Skin: General: Skin is warm and dry. Capillary Refill: Capillary refill takes less than 2 seconds. Neurological: General: No focal deficit present. Mental Status: She is alert and oriented to person, place, and time. Psychiatric: Mood and Affect: Mood normal. Behavior: Behavior normal. Thought Content: Thought content normal. Judgment: Judgment normal. 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 It is not clear if this happens because of the metoprolol, the health condition that is being treated, other factors, or a combination of factors. Metoprolol use in late may cause the baby to have symptoms such as slowed heart rate and low blood sugar. She voiced understanding of risks. F/U with OB and maternal medicine as scheduled RTC 2-3 months or as needed [facility] 10-23-2023 Note Patient here per Dr. Angel for tachycardia in . She is currently 32w5d along. [employer] started her on metoprolol tartrate 25mg daily a few weeks ago, which as helped with palpitations. HR gets as high as 147 at rest sometimes. This issue went away after the of her last baby. Review of Systems Cardiovascular: Positive for dyspnea on exertion. Neurological: Positive for light-headedness. All other systems reviewed and are negative. [facility] 04-15-2023 Evaluation note Encounter Date Diagnosis Assessment Notes Apr, Spontaneous rupture of tympanic membrane of right ear concurrent with and due to acute suppurative otitis media (ICD-10 - H66.011) [employer] Other 01-11-2023 NoteOPERATIVE NOTE OPERATION DATE: 11/19/2022 PROCEDURE: Suction D AND C. PREOPERATIVE DIAGNOSIS: Missed first trimester. POSTOPERATIVE DIAGNOSIS: Missed first trimester. ANESTHESIA: General. SURGEON: Mouna Angel D.O. ROUGH PATCHER: None. FINDINGS: Products of conception. SPECIMEN: Products of conception. BLOOD LOSS: 10 mL. URINE OUTPUT: Yellow and clear. PROCEDURE: The patient was taken back to the OR where she was given general anesthesia without difficulty. She was then placed in dorsal lithotomy position, prepped and draped in the normal sterile fashion. A weighted speculum was placed in the patient's vagina and the anterior lip of the cervix was identified and grasped with a single-tooth tenaculum. The patient was then gently dilated using Hegar dilators after we had sounded roughly to 9 cm. The suction curette was then tested. The suction curette was then placed in the patient's uterus and products of conception were removed using a 9-Tamazight suction curette. Excellent hemostasis was noted. The patient tolerated the procedure well. Sponge, lap, and needle counts were correct x 2. All instruments were then removed from the patient's vagina. The patient was taken to the Recovery Room in stable condition. [id number] Evaluation + Plan note Diagnostic Tests Pending * UTI ([facility]) 07/03/22 [facility] 08-17-2022 Hospital Discharge instructions Patient Education 06/25/2022 10:01:43 Kidney Stones Kidney Stones Kidney stones are solid, rock-like deposits that form inside of the kidneys. The kidneys are a pairof organs that make urine. A kidney stone may form in a kidney and move into other parts of the urinary tract, including the tubes that connect the kidneys to the bladder (ureters), the bladder, and the tube that carries urine out of the body (urethra). As the stone moves through these areas, it can cause intense pain and block the flow of urine. Kidney stones are created when high levels of certain minerals are found in the urine. The stones are usually passed out of the body through urination, but in some cases, medical treatment may be needed to remove them. What are the causes? Kidney stones may be caused by: A condition in which certain glands produce too much parathyroid hormone (primary hyperparathyroidism), which causes too much calcium buildup in the blood. A buildup of uric acid crystals in the bladder (hyperuricosuria). Uric acid is a chemical that the body produces when you eat certain foods. It usually exits the body in the urine. Narrowing (stricture) of one or both of the ureters. A kidney blockage that is present at (congenital obstruction). Past surgery on the kidney or the ureters, such as gastric bypass surgery. What increases the risk? The following factors may make you more likely to develop this condition: Having had a kidney stone in the past. Having a family history of kidney stones. Not drinking enough water. Eating a diet that is high in protein, salt (sodium), or sugar. Being overweight or obese. What are the signs or symptoms? Symptoms of a kidney stone may include: Pain in the side of the abdomen, right below the ribs (flank pain). Pain usually spreads (radiates)to the groin. Needing to urinate frequently or urgently. Painful urination. Blood in the urine (hematuria). Nausea. Vomiting. Fever and chills. How is this diagnosed? This condition may be diagnosed based on: Your symptoms and medical history. A physical exam. Blood tests. Urine tests. These may be done before and after the stone passes out of your body through urination. Imaging tests, such as a CT scan, abdominal X-ray, or ultrasound. A procedure to examine the inside of the bladder (cystoscopy). How is this treated? Treatment for kidney stones depends on the size, location, and makeup of the stones. Kidney stones will often pass out of the body through urination. You may need to: Increase your fluid intake to help pass the stone. In some cases, you may be given fluids through an IV and may need to be monitored at the hospital. Take medicine for pain. Make changes in your diet to help prevent kidney stones from coming back. Sometimes, medical procedures are needed to remove a kidney stone. This may involve: A procedure to break up kidney stones using: ?A focused beam of light (laser therapy). ?Shock waves (extracorporeal shock wave lithotripsy). Surgery to remove kidney stones. This may be needed if you have severe pain or have stones that block your urinary tract. Follow these instructions at home: Medicines Take vzty-pki-lrjcnin and prescription medicines only as told by your health care provider. Ask your health care provider if the medicine prescribed to you requires you to avoid driving or using heavy machinery. Eating and drinking Drink enough fluid to keep your urine pale yellow. You may be instructed to drink at least 8 10 glasses of water each day. This will help you pass the kidney stone. If directed, change your diet. This may include: ?Limiting how much sodium you eat. ?Eating more fruits and vegetables. ?Limiting how much animal protein such as red meat, poultry, fish, and eggs you eat. Follow instructions from your health care provider about eating or drinking restrictions. General instructions Collect urine samples as told by your health care provider. You may need to collect a urine sample: ?24 hours after you pass the stone. ?8 12 weeks after passing the kidney stone, and every 6 12 months after that. Strain your urine every time you urinate, for as long as directed. Use the strainer that your health care provider recommends. Do not throw out the kidney stone after passing it. Keep the stone so it can be tested by your health care provider. Testing the makeup of your kidney stone may help prevent you from getting kidney stones in the future. Keep all follow-up visits as told by your health care provider. This is important. You may need follow-up X-rays or ultrasounds to make sure that your stone has passed. How is this prevented? To prevent another kidney stone: Drink enough fluid to keep your urine pale yellow. This is the best way to prevent kidney stones. Eat a healthy diet and follow recommendations from your health care provider about foods to avoid. You may be instructed to eat a low-protein diet. Recommendations vary depending on the type of kidney stone that you have. Maintain a healthy weight. Where to find more information National Kidney Foundation (NKF): www.kidney.org [employer] (UCF): www.urologyhealth.org Contact a health care provider if: You have pain that gets worse or does not get better with medicine. Get help right away if: You have a fever or chills. You develop severe pain. You develop new abdominal pain. You faint. You are unable to urinate. Summary Kidney stones are solid, rock-like deposits that form inside of the kidneys. Kidney stones can cause nausea, vomiting, blood in the urine, abdominal pain, and the urge to urinate frequently. Treatment for kidney stones depends on the size, location, and makeup of the stones. Kidney stones will often pass out of the body through urination. Kidney stones can be prevented by drinking enough fluids, eating a healthy diet, and maintaining a healthy weight. This information is not intended to replace advice given to you by your health care provider. Make sure you discuss any questions you have with your health care provider. Document Released: 10/26/2006 Document Revised: 03/13/2020 Document Reviewed: 03/13/2020 [employer] Patient Education 2019 [facility]. 06/25/2022 09:59:21 Urinary Tract Infection, Adult Urinary Tract Infection, Adult A urinary tract infection (UTI) is an infection of any part of the urinary tract. The urinary tractincludes the kidneys, ureters, bladder, and urethra. These organs make, store, and get rid of urinein the body. Your health care provider may use other names to describe the infection. An upper UTI affects the ureters and kidneys (pyelonephritis). A lower UTI affects the bladder (cystitis) and urethra (urethritis). What are the causes? Most urinary tract infections are caused by bacteria in your genital area, around the entrance to your urinary tract (urethra). These bacteria grow and cause inflammation of your urinary tract. What increases the risk? You are more likely to develop this condition if: You have a urinary catheter that stays in place (indwelling). You are not able to control when you urinate or have a bowel movement (you have incontinence). You are female and you: ?Use a spermicide or diaphragm for control. ?Have low estrogen levels. ?Are . You have certain genes that increase your risk (genetics). You are sexually active. You take antibiotic medicines. You have a condition that causes your flow of urine to slow down, such as: ?An enlarged prostate, if you are male. ?Blockage in your urethra (stricture). ?A kidney stone. ?A nerve condition that affects your bladder control (neurogenic bladder). ?Not getting enough to drink, or not urinating often. You have certain medical conditions, such as: ?Diabetes. ?A weak disease-fighting system (immunesystem). ?Sickle cell disease. ?Gout. ?Spinal cord injury. What are the signs or symptoms? Symptoms of this condition include: Needing to urinate right away (urgently). Frequent urination or passing small amounts of urine frequently. Pain or burning with urination. Blood in the urine. Urine that smells bad or unusual. Trouble urinating. Cloudy urine. Vaginal discharge, if you are female. Pain in the abdomen or the lower back. You may also have: Vomiting or a decreased appetite. Confusion. Irritability or tiredness. A fever. Diarrhea. The first symptom in older adults may be confusion. In some cases, they may not have any symptoms until the infection has worsened. How is this diagnosed? This condition is diagnosed based on your medical history and a physical exam. You may also have other tests, including: Urine tests. Blood tests. Tests for sexually transmitted infections (STIs). If you have had more than one UTI, a cystoscopy or imaging studies may be done to determine the cause of the infections. How is this treated? Treatment for this condition includes: Antibiotic medicine. Proh-ykw-ymubkjt medicines to treat discomfort. Drinking enough water to stay hydrated. If you have frequent infections or have other conditions such as a kidney stone, you may need to see a health care provider who specializes in the urinary tract (urologist). In rare cases, urinary tract infections can cause sepsis. Sepsis is a life- threatening condition that occurs when the body responds to an infection. Sepsis is treated in the hospital with IV antibiotics, fluids, and other medicines. Follow these instructions at home: Medicines Take ffju-dap-yrigucb and prescription medicines only as told by your health care provider. If you were prescribed an antibiotic medicine, take it as told by your health care provider. Do notstop using the antibiotic even if you start to feel better. General instructions Make sure you: ?Empty your bladder often and completely. Do not hold urine for long periods of time. ?Empty your bladder after sex. ?Wipe from front to back after a bowel movement if you are female. Use each tissue one time when you wipe. Drink enough fluid to keep your urine pale yellow. Keep all follow-up visits as told by your health care provider. This is important. Contact a health care provider if: Your symptoms do not get better after 1 2 days. Your symptoms go away and then return. Get help right away if you have: Severe pain in your back or your lower abdomen. A fever. Nausea or vomiting. Summary A urinary tract infection (UTI) is an infection of any part of the urinary tract, which includes the kidneys, ureters, bladder, and urethra. Most urinary tract infections are caused by bacteria in your genital area, around the entrance to your urinary tract (urethra). Treatment for this condition often includes antibiotic medicines. If you were prescribed an antibiotic medicine, take it as told by your health care provider. Do notstop using the antibiotic even if you start to feel better. Keep all follow-up visits as told by your health care provider. This is important. This information is not intended to replace advice given to you by your health care provider. Make sure you discuss any questions you have with your health care provider. Document Released: 08/05/2006 Document Revised: 10/13/2019 Document Reviewed: 05/05/2019 [employer] Patient Education 2020 [facility]. [facility] 08-10-2022 Evaluation note* Encounter Date Diagnosis Assessment Notes Treatment Notes Treatment Clinical Notes Jun, Obesity (ICD-10 - E66.9) Patient is getting closer to goal. She is to continue with diet modification and exercise as tolerated. She is doing planks and running and she is able. Patient educated on caution with use of caffeine pills. Jun, Body mass index (BMI) of 28.0 to 28.9 in adult (ICD-10 - Z68.28) Patient has finished her 2nd month of Adipex. She did lose 7 pounds since the last visit. Patient is discouraged that she is not losing as much as she is hoping for. Refill provided and this will be her last fill. She has been counselled that Qsymia can be an option after she is finished with Adipex to aid and maintain weight loss Jun, Depression with anxiety (ICD-10 - F41.8) Patient has adjusted her citalopram/ decreasing dose on her own. She is gradually weaning herself off this medication with hopes that she can go off it completely. [employer] Other 07-05-2022 Evaluation note* Encounter Date Diagnosis Assessment Notes Treatment Notes Treatment Clinical Notes May, Body mass index [BMI] 30.0-30.9, adult (ICD-10 - Z68.30) Patient presents in the office with a six pound weight loss from last check. Encouraged patient to increase diet and exercise. Refill provided. May, Obesity, unspecified (ICD-10 - E66.9) Encouraged to watch diet and increase exercise regimen; we will continue to monitor. 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 I recommened a consult with a tap builder. Patient would like to hold off on the referral for now. [employer] Other 06-08-2022 Evaluation note* Encounter Date Diagnosis Assessment Notes Treatment Notes Treatment Clinical Notes Apr, Obesity, unspecified (ICD-10 - E66.9) Encouraged to watch diet and increase exercise regimen; we will continue to monitor. Apr, Body mass index [BMI] 30.0-30.9, adult (ICD-10 - Z68.30) Patient presents in the office with a four pound weight gain from last visit and the patient is six months . The patient has been on adipex in the past with good results. Therefore we will start the patient on adipex regimen today. Patient is to start taking a half tablet for the first month. Enocuraged patient to increase exercise and start a diet regimen. Apr, Chronic UTI (ICD-10 - N39.0) Patient has been following with Dr. Saez due to UTI for the past two years. Apr, Depression with anxiety (ICD-10 - F41.8) Patient is to continue with the above medication and is to continue to follow with Dr. Angel as scheduled. Apr, Tachycardia (ICD-10 - R00.0) Patient had episodes of tachycardia towards the end of her . She did have an EKG and holter monitor done. Apr, Other He does unde rstand that she will give me a call if she has any significant chest pain shortness of breath tachycardia or any other dysrhythmias. She voices understanding [employer] Other 03-29-2022 Evaluation + Plan note Diagnostic Tests Pending * [facility] Appointment Date:07/02/2022 02:45:00 PM Scheduled Provider:Kwadwo SAEZ MD Location:[facility] Appointment Type:URO Office Visit [facility] Evaluation + Plan note Future Appointments Appointment Date:07/02/2022 02:45:00 PM Scheduled Provider:Kwadwo SAEZ MD Location:[facility] Appointment Type:URO Office Visit Diagnostic Tests Pending * Urine [facility]ments Appointment Date:07/02/2022 02:45:00 PM Scheduled Provider:Kwadwo SAEZ MD Location:[facility] Appointment Type:URO Office Visit Diagnostic Tests Pending * Urine Culture [facility] [employer] Other History general Narrative - Reported* Type Description Date Medical History Anxiety Hospitalization History childbirth [facility] [employer] Other Hospital course Narrative No data available for this section [facility] No data available for this section [facility] No data available for this section [facility] Summary Purpose Family History No Family History Records FoundNo Family History Records FoundNo Family History Records FoundNo Family History Records FoundNo Family History Records FoundNo Family History Records Found Advance Directives No Advanced Directives Records FoundNo Advanced Directives Records FoundNo Advanced Directives Records FoundNo Advanced Directives Records FoundNo Advanced Directives Records FoundNo Advanced Directives Records Found Reason for Referral Reason *FU 04/24 Diagnosis 1 Spontaneous rupture of tympanic membrane of right ear concurrent with and due to acute suppurative otitis media (H66.011) Referral Organization [facility] Referring Provider First Name Devin Referring Provider Last Name Genaro Referring Provider Specialty Family Prac brittanie Referred Organization [facility] Referred Provider Aldo Bolanos Referred Address ,[place], [place],[address] Referred Provider Specialty Otolaryngolo gy Referral Priority Routine General Notes Fore, Higinio M 023 12:56:47 PM >Received today. [facility] request us to send the referral and they will call and schedule patient. Referral was fax Clinical Notes Office [phone] Additional Source Comments INFORMATION SOURCE (unrecogn ized section and content) DATE CREATED AUTHOR 02/26/2022 [facility] DATE CREATED AUTHOR AUTHOR'S ORGANIZ ATION 07/04/2022 [facility] DATE CREATED AUTHOR AUTHOR'S ORGANIZ ATION 07/05/2022 [facility] DATE CREATED AUTHOR AUTHOR'S ORGANIZ ATION 01/21/2023 [facility] DATE CREATED AUTHOR AUTHOR'S ORGANIZ ATION 10/25/2023 [facility] DATE CREATED AUTHOR AUTHOR'S ORGANIZ ATION 10/29/2023 [facility] EPIC REASON FOR VISIT (unrecogniz ed section and content) weight management/ UTI4 week follow up-weight mgmt.1 month Follow up weight managementClinicalClinical Care Team (unrecognized sect ion and content) Personnel Name: DEVIN LAM DO Address: [address] [place] [address] Personnel Name: DEVIN LAM DO Address: [address] [place] [address] FOR RECORDS PERTAINING TO PATIENTS WHO ARE OR HAVE BEEN ENROLLED IN A CHEMICAL DEPENDENCY/SUBSTANCEABUSE PROGRAM, SOME INFORMATION MAY BE OMITTED. This clinical summary was aggregated from multiple sources. Caution should be exercised in using it in the provision of clinical care. This summary normalizes information from multiple sources, and as a consequence, information in this document may materially change the coding, format and clinical context of patient data. In addition, data may be omitted in some cases. CLINICAL DECISIONS SHOULD BE BASED ON THE PRIMARY CLINICAL RECORDS. [facility] [employer] [facility]. provides no warranty or guarantee of the accuracy or completeness of information in this document.
[2023-10-30 09:17] VITALS: PULSE 82; RESP 16; TEMP 36.4
== END 2023-10-30 09:27 | disposition home or self-care (01) ==
LOC: FBCO 07:05 → FBC 08:47
PROVIDERS: Visit Provider Obstetrics & Gynecology
DX: O26.849 Uterine size-date discrepancy, unspecified trimester (principal); O09.523 Supervision of elderly multigravida, third trimester
CPT/HCPCS: 59025

== ENCOUNTER 2023-11-03 08:03 | Outpatient (OUT) | payer BC, SELFPAY ==
[2023-11-03 16:54] VITALS: BP 127/74; PULSE 108
--- NOTE | 2023-11-03 17:00 | US_ITS ---
[place] [id number] Patient Name: BONILLA KUMAR MRN: [id number] date: 1985 Sex: F Assigned Patient Location: Current Patient Location: [facility] Accession/Order Number: [id number] Exam Date: 11/03/2023 17:00 Report Date: 11/03/2023 20:01 At the request of: MOUNA ASENCIO Procedure: US OB BPP w non-stress TRANSABDOMINAL THIRD TRIMESTER OB ULTRASOUND LIMITED AND ULTRASOUND BIOPHYSICAL PROFILE HISTORY: ; size and dates. COMPARISON: Ultrasound 10/27/2023. FINDINGS: There is a single intrauterine in the cephalic presentation, longitudinal lie. The amniotic fluid index equals 19.1 cm with the largest fluid pocket measuring 6 cm. There are heart tones 155 bpm. BPD 8.7 cm Head circumference 31.8 cm Abdominal circumference 31.2 cm Femur length 6.4 cm Estimated weight 2544 g; 67%. BPP Movement 2 Tone 2 Breathing 2 Fluid 2 US/US OB BPP w non-stress IMPRESSION: Single viable intrauterine with an estimated sonographic age 35 weeks 0 days with an estimated date of delivery of 12/08/2023. BPP 06/16. Electronically authenticated by: REBECCA HEMPHILL Date: 11/03/2023 20:01
--- NOTE | 2023-11-03 17:01 | US_ITS ---
[place] [address] Patient Name: BONILLA KUMAR MRN: [id number] date: 1985 Sex: F Assigned Patient Location: Current Patient Location: [facility] Accession/Order Number: [id number] Exam Date: 11/03/2023 17:00 Report Date: 11/05/2023 09:50 At the request of: MOUNA ASENCIO Procedure: US OB umbilical artery EXAMINATION: US OB umbilical artery HISTORY: MULTIGRAVIDA OF ADVANCED MATERNAL AGE O09.523 COMPARISON: Ultrasound OB umbilical artery 10/27/2023 TECHNIQUE: Duplex Doppler evaluation of the umbilical arteries. FINDINGS: HEART RATE: 149 bpm UMBILICAL ARTERIES: 2 GESTATIONAL AGE: 34 weeks 1 day WAVEFORM: Normal upstroke. No notching. Forward flow in diastole. PEAK SYSTOLIC VELOCITY: 92 cm/s END DIASTOLIC VELOCITY: 34 cm/s SYST/DIAST RATIO (S:D): 2.7 RESISTIVE INDEX: 0.78 US/US OB umbilical artery IMPRESSION: 1. Umbilical Artery: Class I = increased resistive index but still forward flow in diastole Electronically authenticated by: LUIS MANUEL VEGA Date: 11/05/2023 09:50
--- NOTE | 2023-11-03 17:51 | US_ITS ---
[place] [id number] Patient Name: BONILLA KUMAR MRN: [id number] date: 1985 Sex: F Assigned Patient Location: Current Patient Location: [facility] Accession/Order Number: [id number] Exam Date: 11/03/2023 17:00 Report Date: 11/03/2023 20:01 At the request of: MOUNA ASENCIO Procedure: US OB growth TRANSABDOMINAL THIRD TRIMESTER OB ULTRASOUND LIMITED AND ULTRASOUND BIOPHYSICAL PROFILE HISTORY: ; size and dates. COMPARISON: Ultrasound 10/27/2023. FINDINGS: There is a single intrauterine in the cephalic presentation, longitudinal lie. The amniotic fluid index equals 19.1 cm with the largest fluid pocket measuring 6 cm. There are heart tones 155 bpm. BPD 8.7 cm Head circumference 31.8 cm Abdominal circumference 31.2 cm Femur length 6.4 cm Estimated weight 2544 g; 67%. BPP Movement 2 Tone 2 Breathing 2 Fluid 2 US/US OB growth IMPRESSION: Single viable intrauterine with an estimated sonographic age 35 weeks 0 days with an estimated date of delivery of 12/08/2023. BPP 8/8. Electronically authenticated by: REBECCA HEMPHILL Date: 11/03/2023 20:01
== END 2023-11-03 18:05 | disposition home or self-care (01) ==
LOC: US 08:04 → FBC 16:45
PROVIDERS: Visit Provider Obstetrics & Gynecology
DX: O09.523 Supervision of elderly multigravida, third trimester (principal); Z3A.35 35 weeks gestation of pregnancy
CPT/HCPCS: 76816; 76818; 76820

== ENCOUNTER 2023-11-06 07:02 | Outpatient (OUT) | payer BC, SELFPAY ==
--- OUTSIDE RECORDS SUMMARY | 2023-11-06 07:05 | XMS_ITS | CCD ---
Author Name Unknown Address [address] [place] [address] Organization [facility] Care Team Providers Care Medical Director/Head Team Physician Name Role Phone DEVIN LAM Primary Care [...] FREIRE Primary Care Unavailable ZIEBER, DR LUIS MNAUEL [employer] Unavailable LUIS M ., DR [...] Translations: [acetaminophen-hy drocodone] Drug Allergy Nausea (finding) [facility] (13 sources) Banana Extract; Translations: [Banana] Drug Allergy 09-10-20 20 Itching (finding) [facility] (8 sources) Melon; Translations: [melon] Drug allergy 09-10-20 Itching (finding) [facility] (5 sources) Melon Propensity to adverse reactions Unknown [facility] Other (1 source) Acetaminophen / HYDROcodone Drug Allergy 09-10-20 20 [facility] (1 source) Acetaminophen / HYDROcodone; Translations: [HYDROCODONE-ACET AMINOPHEN] Drug Allergy 04-10-20 21 [facility] Repository Medications Current Medications Medication Drug [...] day(s), # 90 cap(s), Refills(s) 0, Pharmacy: [facility] [id number] [facility], 162, cm, 02/25/22 14:21:00 EDT, [...] procedure, # 2 cap(s), Refills(s) 0, Pharmacy: [place] [id number] [facility], 162, cm, 02/04/22 14:57:00 EDT, Height/Length Dosing, 75, kg, 02/04/22 14:57:00 EDT, Weight Dosing Start Date: 02/04/22 Status: Ordered citalopram 20 mg oral tablet (10 sources) Serotonin Reuptake Inhibitor Start: 02-04-2022 take 1 mg by mouth once daily CeleXA 20 mg Tab mg tab(s), Oral, Daily, Refills(s) 0 Start Date: 02/04/22 Status: Ordered take 0.5 tablet by m [facility] every twenty-four hours Citalopram Hydrobromide 20 MG 0.5 tablet Orally Once a day Active Docusate (9 sources) Start: 02-04-2022 take 1 mg by mouth twice daily Dulcolax Stool Softener mg, Oral, BID, Refills(s) 0 Start Date: 02/04/22 Status: Ordered Start: 03-09-2015 take 1 capsule by [facility] twice daily as needed for constipation Colace [...] Status: Ordered take 1 capsule by [facility] once daily at bedtime Macrobid 100 MG [...] 10 day(s), 20 tab(s), Refill(s) 0, [facility] [id number] [facility], 162, cm, 02/25/22 14:21:00 EDT, [...] Range Facility Office Visiton 10-23-2023 Follow-up visit [id number] Jessa Chatman 1985 F Date Provider Department Center 10/23/2023 Abelino-ARACELI MCKENZIE [facility] No family history on file Level of Service:38076 DC OFFICE/OUTPATIENT ESTABLISHED MOD MDM 30-39 MIN Normal [facility] PROGRESSon 10-23-2023 Beta HCG ( test) [...] sugar. She voiced understanding of risks. Normal [facility] PREG QUANT HCGon 12-19-2022 HCG QUANT 5 mIU/mL Normal [facility] Comment on above: Performed By: #### P REGQNT #### [facility] [address] [place] [address] Dr. Fadi Meza HCG RANGE SEE BELOW Normal [facility] Comment on above: Result Comment: 5-50 0.2-1 WEEK 50-500 1-2 WEEKS 100-5,000 2-3 WEEKS 500-10,000 3-4 WEEKS 1,000-50,000 4-5 WEEKS 10,000-100,000 5-6 WEEKS 15,000-200,000 6-8 WEEKS 10,000-100,000 2-3 MONTHS Performed By: #### P REGQNT #### [facility] [address] [place] [address] Dr. Fadi Meza PREG QUANT HCGon 12-05-2022 HCG QUANT 43 mIU/mL Normal [facility] Comment on above: Performed By: #### P REGQNT #### [facility] [address] [place] [address] Dr. Fadi Meza HCG RANGE SEE BELOW Normal [facility] Comment on above: Result Comment: 5-50 0.2-1 WEEK 50-500 1-2 WEEKS 100-5,000 2-3 WEEKS 500-10,000 3-4 WEEKS 1,000-50,000 4-5 WEEKS 10,000-100,000 5-6 WEEKS 15,000-200,000 6-8 WEEKS 10,000-100,000 2-3 MONTHS Performed By: #### P REGQNT #### [facility] [address] [place] [address] Dr. Fadi Meza CBC AUTO DIFFon 11-19-2022 BASO # 0.0 103/ul Normal 0.0-0.1 [facility] Comment on above: Performed By: #### C VDTBH #### [facility] [address] [place] [address] Dr. Fadi Meza Basophils/100 WBC (Bld) 0.7 % Normal 0.2-2.0 [facility] Comment on above: Performed By: #### C VDTBH #### [facility] [address] [place] [address] Dr. Fadi Meza EO # 0.1 103/ul Normal 0.0-0.7 [facility] Comment on above: Performed By: #### C VDTBH #### [facility] [address] [place] [address] Dr. Fadi Meza Eosinophils/100 WBC (Bld) 2.1 % Normal 0.9-7.0 [facility] Comment on above: Performed By: #### C VDTBH #### [facility] [address] [place] [address] Dr. Fadi Meza Erythrocyte distribution width (RBC) [Ratio] 13.7 % Normal 11.0-15.0 [facility] Comment on above: Performed By: #### C VDTBH #### [facility] [address] [place] [address] Dr. Fadi Meza Hematocrit (Bld) [Volume fraction] 36.9 % Normal 36.0-48.0 [facility] Comment on above: Performed By: #### C VDTBH #### [facility] [address] [place] [address] Dr. Fadi Meza Hemoglobin (Bld) [Mass/Vol] 11.8 g/dL Critically low 12.0-16.0 [facility] Comment on above: Performed By: #### C VDTBH #### [facility] [address] [place] [address] Dr. Fadi Meza IG # 0.01 10e3/ul Normal 0.00-0.03 [facility] Comment on above: Performed By: #### C VDTBH #### [facility] [address] [place] [address] Dr. Fadi Meza IG % 0.2 % Normal 0.0-0.5 [facility] Comment on above: Performed By: #### C VDTBH #### [facility] [address] [place] [address] Dr. Fadi Meza LYMPH # 1.3 103/ul Normal 1.2-3.8 [facility] Comment on above: Performed By: #### C VDTBH #### [facility] [address] [place] [address] Dr. Fadi Meza Lymphocytes/100 WBC (Bld) 29.3 % Normal 20.5-60.0 [facility] Comment on above: Performed By: #### C VDTBH #### [facility] [address] [place] [address] Dr. Fadi Meza MANUAL DIFF REQ NO Normal [facility] Comment on above: Performed By: #### C VDTBH #### [facility] [address] [place] [address] Dr. Fadi Meza MCH (RBC) [Entitic mass] 28.4 pg Normal 26.7-34.0 [facility] Comment on above: Performed By: #### C VDTBH #### [facility] [address] [place] [address] Dr. Fadi Meza MCHC (RBC) [Mass/Vol] 32.0 g/dL Normal 29.9-35.2 [facility] Comment on above: Performed By: #### C VDTBH #### [facility] [address] [place] [address] Dr. Fadi Meza MCV (RBC) [Entitic vol] 88.9 fL Normal 81.0-99.0 [facility] Comment on above: Performed By: #### C VDTBH #### [facility] [address] [place] [address] Dr. Fadi Meza MONO # 0.5 103/ul Normal 0.3-0.8 [facility] Comment on above: Performed By: #### C VDTBH #### [facility] [address] [place] [address] Dr. Fadi Meza Monocytes/100 WBC (Bld) 10.6 % Normal 1.7-12.0 [facility] Comment on above: Performed By: #### C VDTBH #### [facility] [address] [place] [address] Dr. Fadi Meza NEUT # 2.5 103/ul Normal 1.4-6.5 [facility] Comment on above: Performed By: #### C VDTBH #### [facility] [address] [address] [address] Fadi Meza Neutrophils/100 WBC (Bld) 57.1 % Normal 43.0-75.0 [facility] Comment on above: Performed By: #### C VDTBH #### [facility] [address] [address] [address] Fadi Meza Platelet mean volume (Bld) [Entitic vol] 9.4 fL Critically low 9.5-13.5 [facility] Comment on above: Performed By: #### C VDTBH #### [facility] [address] [place] [address] Dr. Fadi Meza PLT 210 103/ul Normal 150-450 [facility] Comment on above: Performed By: #### C VDTBH #### [facility] [address] [place] [address] Dr. Fadi Meza RBC 4.15 106/ul Critically low 4.20-5.40 [facility] Comment on above: Performed By: #### C VDTBH #### [facility] [address] [place] [address] Dr. Fadi Meza WBC 4.3 103/ul Normal 4.0-11.0 [facility] Comment on above: Performed By: #### C VDTBH #### [facility] [address] [place] [address] Dr. Fadi Meza PREG QUANT HCGon 11-19-2022 HCG QUANT 20742 mIU/mL Normal [facility] Comment on above: Performed By: #### P REGQNT #### [facility] [address] [place] [address] Dr. Fadi Meza HCG RANGE SEE BELOW Normal [facility] Comment on above: Result Comment: 5-50 0.2-1 WEEK 50-500 1-2 WEEKS 100-5,000 2-3 WEEKS 500-10,000 3-4 WEEKS 1,000-50,000 4-5 WEEKS 10,000-100,000 5-6 WEEKS 15,000-200,000 6-8 WEEKS 10,000-100,000 2-3 MONTHS Performed By: #### P REGQNT #### [facility] [address] [address] [address] Fadi Meza US PREG <14 WKSon 11-19-2022 US PREG <14 WKS Obstetrical ultrasound, 1st trimester CLINICAL: Evaluate prior to scheduled DANDC. TECHNIQUE: Transabdominal and transvaginal obstetrical ultrasound was performed. FINDINGS: Comparison: Ultrasound 11/12/2022 There is a single intrauterine fetus. Moclips-rump length is 1.81 cm, correlating with gestational age 8 weeks 3 days. No heart tones are detected. IMPRESSION: 1. Single intrauterine nonviable gestation. No heart tones detected, and no growth since previous ultrasound 11/12/2022. Electronically authenticated by: RUCHI FRANK Date: 2022-11-19 13:17 Normal [facility] PAP ACOG PANEL 2: 30 to 65on 11-16-2022 . . Normal [facility] Comment on above: Result Comment: Perf ormed at: WB Performed By: #### 4 [id number] #### [facility] [address] [address] [address] Fadi Meza Age Gdln ACOG Testing 30-65 Normal [facility] Comment on above: Performed By: #### 4 [id number] #### [facility] [address] [address] [address] Fadi Meza DIAGNOSIS: Comment Normal [facility] Comment on above: Result Comment: NEGA TIVE FOR INTRAEPITHELIAL LESION OR MALIGNANCY. Performed at: WB Performed By: #### 4 [id number] #### [facility] [address] [address] [address] Fadi Meza HPV Aptima Negative Normal Negative [facility] Comment on above: Result Comment: This nucleic acid amplification test detects fourteen high-risk HPV types (16,18,31,33,35,39,45,51,52,56,58,59,66,68) without differentiation. Performed at: =G Performed By: #### 4 [id number] #### [facility] [address] [address] [address] Fadi Meza HPV Genotype Reflex Comment Normal [facility] Comment on above: Result Comment: Crit eria not met, HPV Genotype not performed. Performed at: WB Performed By: #### 4 [id number] #### [facility] [address] [place] [address] Dr. Fadi Meza Methodology: Comment Normal [facility] Comment on above: Result Comment: This liquid based ThinPrep(R) pap test was screened with the use of an image guided system. Performed at: WB Performed By: #### 4 [id number] #### [facility] [address] [place] [address] Dr. Fadi Meza Note: Comment Normal [facility] Comment on above: Result Comment: The Pap smear is a screening test designed to aid in the detection of premalignant and malignant conditions of the uterine cervix. It is not a diagnostic procedure and should not be used as the sole means of detecting cervical cancer. Both false-positive and false-negative reports do occur. . Performed at: WB Performed By: #### 4 [id number] #### [facility] [address] [place] [address] Dr. Fadi Meza Performed by: Comment Normal [facility] Comment on above: Result Comment: [place], Illustrator Set (ASCP) Performed at: WB Performed By: #### 4 [id number] #### [facility] [address] [place] [address] Dr. Fadi Meza Specimen adequacy: Comment Normal [facility] Comment on above: Result Comment: Sati sfactory for evaluation. Endocervical and/or squamous metaplastic cells (endocervical component) are present. Performed at: WB Performed By: #### 4 [id number] #### [facility] [address] [place] [address] Dr. Fadi Meza CHLAMYDIA/GONOCOCCUS TALAT (SW AB/URINE/PAPon 11-15-2022 Chlamydia trachomatis, TALAT Negative Normal Negative [facility] Comment on above: Performed By: #### C T/NGNA #### [facility] [address] [place] [address] Dr. Fadi Meza Neisseria gonorrhoeae, TALAT Negative Normal Negative [facility] Comment on above: Performed By: #### C T/NGNA #### [facility] [address] [address] [address] Fadi Meza VAGINITIS/VAGINOSIS DNA PROB Kel 11-14-2022 Shannon species Negative Normal Negative [facility] Comment on above: Performed By: #### V AGINT #### [facility] [address] [address] [address] Fadi Meza Gardnerella vaginalis Negative Normal Negative [facility] Comment on above: Performed By: #### V AGINT #### [facility] [address] [address] [address] Fadi Meza Trichomonas vaginalis Negative Normal Negative [facility] Comment on above: Performed By: #### V AGINT #### [facility] [address] [place] [address] Dr. Fadi Meza Covid-19 PCR (CVDTB)on SARS-CoV-2 (COVID-19) RNA TALAT+probe Ql (Unsp spec) Not detected Normal NOT DETECTED [facility] Comment on above: Result Comment: This test is not yet approved or cleared by the [place] FDA. When there are no FDA-approved or cleared tests available, and other criteria are met, FDA can make tests available under an emergency access mechanism called an Emergency Use Authorization (EUA). The EUA for this test is supported by the Director Of Rooms of Health and Human Service's (HHS's) declaration [...] SARS-CoV-2. Performed By: #### C VDTBH #### [facility] [address] [place] [address] Dr. Fadi Meza US PREG TVon 11-12-2022 [...] MANUEL VEGA Date: 2022-11-12 16:44 Normal [facility] CULTURE URINEon 09-01-2022 CULTURE URINE Culture Observations: LIGHT GROWTH OF MIXED GENITAL SIRIA. NO POTENTIAL PATHOGENS SEEN. Normal [facility] Comment on above: Performed By: #### U RCX #### [facility] [address] [place] [address] Dr. Fadi Meza UA RANDOMon 09-01-2022 Bilirubin Ql (U) Negative Normal NEGATIVE [facility] Comment on above: Performed By: #### U A #### [facility] [address] [place] [address] Dr. Fadi Meza Clarity (U) CLEAR Normal CLEAR [facility] Comment on above: Performed By: #### U A #### [facility] [address] [place] [address] Dr. Fadi Meza Color (U) YELLOW Normal YELLOW [facility] Comment on above: Performed By: #### U A #### [facility] [address] [place] [address] Dr. Fadi Meza Glucose Ql (U) Negative Normal NEGATIVE [facility] Comment on above: Performed By: #### U A #### [facility] [address] [place] [address] Dr. Fadi Meza Hemoglobin Ql (U) Negative Normal NEGATIVE [facility] Comment on above: Performed By: #### U A #### [facility] [address] [place] [address] Dr. Fadi Meza Ketones Ql (U) Negative Normal NEGATIVE [facility] Comment on above: Performed By: #### U A #### [facility] [address] [place] [address] Dr. Fadi Meza LEUKOCYTES Negative Normal NEGATIVE [facility] Comment on above: Performed By: #### U A #### [facility] [address] [place] [address] Dr. Fadi Meza Nitrite Ql (U) Negative Normal NEGATIVE [facility] Comment on above: Performed By: #### U A #### [facility] [address] [place] [address] Dr. Fadi Meza pH (U) 6.0 [pH] Normal 5-9 [facility] Comment on above: Performed By: #### U A #### [facility] [address] [place] [address] Dr. Fadi Meza SPEC GRAVITY 1.025 Normal 1.005-<=1.025 [facility] Comment on above: Performed By: #### U A #### [facility] [address] [place] [address] Dr. Fadi Meza UA PROTEIN Negative Normal NEGATIVE/ TRACE [facility] Comment on above: Performed By: #### U A #### [facility] [address] [place] [address] Dr. Fadi Meza Urobilinogen Qn (U) 0.2 {Shan'U}/dL Normal 0.2 - 1. 0 [facility] Comment on above: Performed By: #### U A #### [facility] [address] [place] [address] Dr. Fadi Meza CULTURE URINEon 08-02-2022 CULTURE [...] Trimethoprim/Sulfame thoxazole >=320 R F Normal [facility] Comment on above: Performed By: #### C VDTB #### [facility] [address] [place] [address] Dr. Fadi Meza UTI (P4 Labs)on 07-05-2022 UTI Report Diagnosis Info Invalid Interpretation Code [facility] Comment on above: Result Comment: Osmani riggs [...] on: 07/04/2022 23:05:19 Performed By: #### 2 [id number] ####[facility] [address] [place] [address] UTI ( Labs)on 07-03-2022 UTI Method of Extraction Voided Normal [facility] Comment on above: Performed By: #### 2 [id number] ####[facility] [address] [place] [address] UTI Number of Jars 1 Invalid Interpretation Code [facility] Comment on above: Performed By: #### 2 [id number] ####[facility] [address] [place] [address] UTI Specimen Urine Normal [facility] Comment on above: Performed By: #### 2 [id number] ####[facility] [address] [place] [address] UTI Type of Service Global Normal Fishe [facility] Comment on above: Performed By: #### 2 [id number] ####[facility] [address] [place] [address] Urology Office/Clinic Noteon 06-27-2022 Urology Office/Clinic Note [...] Low estrogen (more content not included)... Normal [facility] Comment on above: Result Comment: Elec tronically Signed By: Jalen Robledo\.br\Date and Time Signed: 06/27/22 00:01 EDT Ambulatory Visit Summaryon 0 06-25-2022 Ambulatory Visit Summary JESSA CHATMAN :1985 Visit Date:06/25/2022 Ambulatory Visit Instructions Your Diagnosis Recurrent UTI Bilateral kidney stones Tests Performed Urnls Dip Stick Auto w/o Microscopy POC 09393 Your Care Team Attending Physician - Jalen [...] Urnls Dip Stick Auto w/o Microscopy POC 16885 (06/25/2022) Bilirubin Urine Dipstick - 1+ Small Blood Urine Dipstick - 3+ Large Glucose Urine Dipstick - Negative Ketones Urine Dipstick - Trace - 5 mg/dl Leukocytes Urine Dipstick - Trace Nitrite Urine Dipstick - Negative Protein Urine Dipstick - 2+ (100 mg/dl) Specific [place] Urine Dipstick - 1.025 Urine Appearance Urine [...] to exami (more content not included)... Normal [facility] Patient Educationon 06-25-20 Patient Education Obstetrics and [...] this condition includes: ? Antibiotic medicine. ? Qzwm-vva-xpfqcbj medicines to treat discomfort. ? Drinking enough [...] these instructions at home: Medicines ? Take bzkw-ckb-tytlmlb and prescription medicines only as told by [...] This in (more content not included)... Normal [facility] Coding Summary.on 04-23-2022 Coding Summary. [id number] Gh0bWw+PGhlYWQ+PE1FV RTvN42vhWMzqK1PK6mHI O9PASWPXGWUKJ6SKY0ze AH4BOdnY5TjmeMk LmuzcIIwYX41RFq1HRX7 fLzjHKwysY4alLKvT0h3 IqGpTC85eB53FSehKRPj EeS3NwBqajmeeWCr O4hlQtCryTOcWxm+PHRh YmxlIHdpZHRoPScxMDAl NzMvwDifNY2yFb5oGKDe LWNvbGxhcHNlOiBj o5zrFREcCHvwRF3edEid W2LqeCQ0DABka7i0Xw34 dHI+KEGyFCH4fUkuJVfp x960JjKos8guVOM3 dSCjNXttPJN8D22gb1P3 WDPkMBCyYID6hFS0dU1t kEezyxkzP4OegAPiWxU3 QQU7iHNwnM5afHgw akoxoL8xVxn+B83FMQ5M UIPBGH1NQjj3G8DqCwck dHI+SH78VEFpWV19xVTv xFRvs9kaaAm6UdCp TQOwRYU0oFjeEZosa7Hz YTPoF02coIRhb4U3UBDp dGffbLQcZyZjxQW4aJ2k FUwcummbk9nzvtij Wzpic9fpqm51tD77I96e JVvoAZGtXPG8TJRhYOBv fTeccc8acN9nBf4+IDxj f9wzg5gbwUt6UvSo KHKbraRfpVeqAQR2b2Pj Be39G8BmnElrh3HvOhf5 dr57nOPgt8M3yNF5SXnk ZEHxuX8yHSoqJuI8 XDVvHbVkvI00eGYdHArj Dr9doGcsoTagVR9aHRTb wlxnMIFyqI7pBYPpkOVh kUunYJ3jWILhnfls x666FbBuTKL9NEAlbKRs I4DzhS4sHwXaQAMmPULy X1YgdIYoTAvqS554MFtz LeN7BDGksyQzC4Tf OGFqgFgtFnU4l1V4Ps4K r1FchjqaEOO2YLwnXFN1 WmL1LbUbNzS8X2NaTzb9 KLMrbNwrHF8cC8Sg BZTkiywlxmhfaLS2QWOb HFDzhR65vASlIDbyOj5x k5X8l922AVSoXYMdrY58 Gy0loGioNHWltTAU cM0qujjki2gxcmxvIwGa MALzVGu4KOe2HEKluJet XpBqNJN3PaR8PZZ9jWOt qL1juDfycbuqpU8n Oyc+Z31pyI2jAJN7SRV4 pqkmGTDlkuFiXY38BU97 K7XgRpsaxZFkdUC+PGRp sgLirHffUZ8gNyCj f5iod3KtPSjvO6ZwXECv IQklHnd9JNDmEIS5fKU1 rY7kMKMbASdny3X8bGC1 G1VoamSwxv9qq5rv MJUxNEunP59qoXRsn5G1 MNVqtAS2TUPxhIcbHkJt fD76Rxr+QRSwfTtet0Kg Cvqel4msf2zfpWm4 IjMwJSIgdmFsaWduPSJ0 h8JiNz99Y63pELkkZUYe QGApMSWxFANnsRrdpk8m dO6vSy8+PGNvbCB3 tLM1iT7nTWAlGiK7SIja J986StJkuYWcNxivz2gp n8ujaEh5XxUeLRGebrSx sNnzKGW0i0ZyRv40 X18rQNcpOLWiWGYeIKPt RCWwbIuzjt8pfV8tEf9+ CE7ss0zoux63sF42rMV+ LSKiTVG8uAbuHKsa VZFarM1hPFcdXzP3PROp BiZshV79sSScQHeoNc1y pJzzrBcsSG3lMWPkccsb q969GrNpk8lbURSs dPLnKQlzPSK7P01uk1U7 VFKjYUYwSPS9kIT4gQ0l bGlnbjogbGVmdDsgdmVy pIvhFMnkZJtxE880 IHRvcDsnPlBhdGllbnQg YxOyEGc1E8AqBmb0OGSj oIvpKP4ixASbZEpuWw6x oAbpmWwgHO0mMALe cqero135RtZgj0yhWAFr kZYmTMjmEVP7L98aw5F1 YNLaFVAmQSM1lWM3lI9a bGlnbjogbGVmdDsg auSuqHbnHZbnTIpwS844 IHRvcDsnPkJpcnRoIERh oIW4IF58JV34yRLzc8C6 qWZ1J8WoMCFnzszo verofFM6UMPsSMHykL38 Zl1ynOysPk0bNGHrJQM9 WHGjrYMjU1SjwM8iTeLf NZBtCJIjU7HdkMQs FAeqW506TTouRkI8NKZd ukJkC0ZrRDCatQrbPgG6 r3P3Mw1PE7J9ZB09IP12 kCAaj8N5iDX9R7Sk TRStwxzfmoeepPE0TGCe CQHlvI69Mp7qmVupWq8c DLSmNRX3ZGIhcBOfF8Mc sA9hUsKjVBTxDCWt U3PyrCMeNBpkF897AOhm UnD2HHCjrePoN4PfIIDd mOohKsZ3k1W5Vi5MFCc4 LW83VJ41iJTan9I3 mVR2C7XfTNBfagzixofx tYD3RXVlDZIygO61Hv2y pJnfRb4uLGDrDHV2OPBl lOOkJ6XfbZ0bZvTe OIEkMFZaL3BrcGBlECqv N626SGuwMaX7ENGphwRe U4VxNDBtyDbbKmU2n6X2 Xe0IHUAnSI12MPH3 uJB3VZ20TH94E2XsQftc dGFibGU+PHRhYmxlIHdp ZHRoPScxMDAlJyBzdHls HV7yKu8qIIXfRITe fCisqEUpDcDej8ocEZBh JRneRF6miYfpJ2FjlIC8 HRYtz0v9My04L21aI0Ce dXA+UFDogXL6aKJ6 jM9aNtWxStM6TMlfX485 XnXczRNdWzvue1xlb2bk mUl6AxY5HTAbwcFzvLnn HLK5b6IdRo96S37m IHdpZHRoPSIxNSUiIHZh aBgxar1buS1tDq9+PGNv cJA1gCC7xK3nPkEgIpU1 FVthF712PxNnvBIc Zhvkq7cwe0pgkOw0HcYz OZZkshQoxRyiTXP7g6Uc Wi67G0ZptEmkc4TbPck0 vo91vUCjd4H2sQC8 Q2WxCAQexqqmbDFowIgf AI5mKZIapyvyNQFhjM1t XHZqJ7o3EjUdAmN5QNqp G0XaopZ4MZParIKm RXheJVR6J31ii4R0DYHd OKWjVAC9vBL7vD9liSpg bjogbGVmdDsgdmVydGlj XYaaDMqjC794CGKu oPxgCCZepI0yUPQhyKJw aPhkOT2xWEMmppwhGj7E OQSGOBKECM4SNKxdxYS+ CWZlNJC3tQvzDZpm TOUwmO0eJHCfF6u0OwGa ZbG5DChlG5SyGMMytwop Cv85hI8bZiXcPwH1GYbb R4DffjW6EWIphFTa VEodRDB4F61hj4U1XBKs PUTeXPD8mNE8kG1kqPpc bjogbGVmdDsgdmVydGlj KQqvJYvoV815VFUv dGnyBvK1LxE7KnQ3FJI9 H1HoVzr7NPZghVgvUA3b hHZwCMznSd5avImmbMee SI2pVAXovslzNJYy rZ0vFRCjeHCdvQzuHA7p BYVhlepqa053FcMyUGB7 NBJdlEKoK6NdmW9rViYu YYZfHGTcF5XvoAZk QLrnX384ZOkaNuP9FHPv lmLaQ2GlIYQriPxwHpY4 h0V5Bv3lIFFKFIMeurxd dGQ+DCMbYIZ1oUlg MUltVFBkiJ8yPXOtK7o3 DkUlUoM9RDzsT1OiWVIw hbmbBi88qK3lOdSnLrE3 MIizV8GcrhV3BMXr lCHpKSliNFG0T90rm1W8 YDUgCFUaAOI0mOP0iX8r bGlnbjogbGVmdDsgdmVy gSeuJArdDIkhF676 IHRvcDsnPkZlbWFsZTwv dGQ+ACViYMF4sUaiEMeg KKTurI2dAWBuS1d5GmAd BeV3WIhnH4WeYNDv rsibSw92rL5cQkXgUvO5 TTcoN3QrstN8VWWbfOKp ZTmzKSX4J81mz3E5JQQk VTGgKYX1sDF5wN6t bGlnbjogbGVmdDsgdmVy zMniTTldONyjS118OUJw gYxgRbnhQgXFlt5qUJ0g ZjwvdGQ+WQ34bx72 A4PzDlupEvo5SCTxYFU7 dGA4lA1fUUUlXJwsd2F9 yWZ8W1HgvhByrs3cd8ny PYNhMRtlV38vpMBx c7F0QOBfoGP5OQLbxDxx PaReoN77Wnu+PGNvbGdy f7KbAlfoe8lzz2eyxWf2 IjMwJSIgdmFsaWdu MRB0m8TlGt66V10kYGsp ZHRoPSIzMCUiIHZhbGln dh8rkU1vFk4+PGNvbCB3 dQO9hO3sYzBiFlI8 UJpnV395MbDgeCHmRszi y5lfk3oesQx0TeSwKWOo eiMfdAqkDQP3m5KeIu51 D3KylOmbs6QeVbi5 ng30mQHnu2O1hDK5M1Ru SAShmvplbOOlwFcsMG2s NLGakayrLIFqdM8vDVXf T0r9IqKsApS4OTaw T8RglqR3DDUmhJFsTHZc vSSVaQ9jazayz5uaufaa KeRvSGBwSXy3GTy2GXDl hVqjJgVnKCA1RhE0 ROH3fTPttP9fyYzpczke bP6bIrk+CLo0p9jmtFDq UK8gaQB9ZT27WL62aDBu b6P9zXF0C3CaXVPl crfjpupjjKL1HMOeYDGe kW54Dx8sxKgfHn2mMJVh OQO7MSPcyMRsR0CbaN8x KnPhTEXdRRCqW6Dc jHTbWQleF620SNjyVxZ0 ZFDarvBrJ2CuMSRowCxy BzB1c4H0Sc0NAU13WN52 TW98tHXjz0Y6xJV5 I5HoGSLmkvmuzddlnVP6 ZVQdADAyoD12Il1joWkx Qp6fMSVnZRC3UQSqhSJa S1CjnS9yTyYqURJy GOQsA7TaxVCkXKecR052 EBsrKhI5XSMtjaWqO1Fl CLLuzFjdHmR2y6I3Je2U Qs60EU82WT21qLSs q8E0lXI7E3KoOSHikwhl nrwfiLX3MVNeKIRetV62 Ib9xiAgtEj8zOFLfQUV7 EBBggXRsJ2YrrK3p AeUyYKKxONWrM5VieJFe ZGbpA826WTkbMrO8LOAs wzJgZ2PfCNLqoAkdItV5 j4Y9Eh4FMSabotg1 N3NxLdsqnJS+WK54CQHk WM07aEYxbSMce0otsEc5 CeUuYEZoKOT9iHzhVSfc g2IjMLNvH60szFGm c2U6 (more content not included)... Normal [facility] Reminders 04-18-2022 Reminders - From: Lupis Turner To: EU - Clinical; Sent: 04/15/2022 15:02:18 EDT Show up: 04/18/2022 08:00:00 EDT Subject: Urine culture Reminder/Recall Urine culture done on 04/15/22 addressed by ANNITA Smalls [facility] C Urineon 04-17-2022 Bacteria identified Cx Nom [...] Locations R1: This test was performed at: [facility], [address] [place] [address], [facility] , , [facility] Comment on above: Performed By: #### 2 [id number] ####[facility] [address] [place] [address] Coding Summary.on 03-13-2022 Coding Summary. CD:[id number] Gh0bWw+PGhlYWQ+PE1FV HXvD53lsHWgnC8HA3uIS L3CDNNUYFCFRB0BLM9ay QF0HHskQ5QvxaNu ArxwlACqAH63TRv8HKW5 uMmyNFjifS6fuYLlB2i4 KfFeRS14pC13XSmsEONk MjQ4JjRphmwnkQPs A8voOrIybEIyJtw+PHRh YmxlIHdpZHRoPScxMDAl QbLpgUhzZN6eKp9cXVMh LWNvbGxhcHNlOiBj d5dqILFkOEcjHA2uaIoj R2MnwGH3NQGzr2n7Zq29 dHI+UNKpAXS8nRomTLgl r540GyVwu6isWLW5 vSPdURflBPC9H59vv7P2 IUVaKNEmTKX1kSH3yN6x pGohdubkC4EioEYvBeN3 ZRY4mBKygF6siLjw evdoaR9sYve+Z32MLF9C XSPKNO1MPgl4Z0PcVeii dHI+FE83MEWtCH13cXSv qWMvj7yleYq4SzBe JDFnBZJ0bUjaJGynf9Cy JYDqT40zsZLjj1W4NRTk vJsekAQqBdSwnCM9rD5d YZhrdlvrv5okfpgu Ajbgs8jszr15wC26K46p UVarAXVqKAT7BSAtXBOt fKhdkx5zwX7kVf7+IDxj o3fnm2jkkHu6DbZu MUSmxdUjqVezJEJ4f9Lw Ht54U5CgfWuob4LgMjs0 jt18aLQmh7B5xRD6BKmp UNMiiO6hCVmyPvE0 YOYgTpAccT43cKMxIGer Wf4xsXcmrVqgWY5hKIVr fcmeCFEjjA1vBIKhrELb rVipBT6fSQAtocnu m016KjOcXWX7UCZjtEWo C1KefG7oWuQrMICqHIQq M8KzfGLnJJouN809NNiw DyK5GAGteuQwD5Pa HQPugUvzSgX8g5J5Yq9X q7PxoothQCX7BSisFOQ5 QnV4ZvScErL8I9NoSjb6 XIEtcWwcLF1bZ9Pg FZVjuhjdujgxfMS1EMBt VSQgxA81nTLtMJvfFy5x q3X5f849WIAjDVHjlR63 Yh0uyYcrRFVwhJNE cI0iaieac0ehmayqJjPo WYNiNUd6JEj4IWYkfRbq ZsGwAKG1PsV4CHP4eDEp aL6lmOwbkwyedY9s Oyc+K99nqC3oQFA4UJT8 ggdsJHQcczUyUL17SG98 H7NsXyutuESbaIE+PGRp hdPlkRdtYP1sYoNi o3tpx3YeMQviC0UfTVBq QWlwKyd4WXKkTTQ0vRY4 pF5xZKQtJQuve2J6nMP0 W4SoioGlem6dk2ut OCJmEOgsH61szXFfv7S1 WMUbdKA7HXTuiAwcOkBm rF74Nds+GNSizDpmx1Wo Vjvqs5pvr1cunUo7 IjMwJSIgdmFsaWduPSJ0 j7YsHg52O30aPJlfKSOe TYZuZPUdQPWmhVulbm5t tD5lKt5+PGNvbCB3 hCP6pC3cMNNyIsL6DFoe M411EeOziHXsBpzls1jl u6sftVa1MnXiZXZtxbGh yEioIBF9j2RbWi04 S96gNKytGUAqNDXqHHPd FRQruVtwwl4xxM0cBh4+ XG3yh5vvte89yE52pSS+ XFVoDXL8wCayIXhi VLUdqX2jUGjyIuM5NVNr SnFctP78uGWqXFhhBr6c iCpwwYouAO3pRKXpyzkj z259WeMax1iqTRKs kZUqKVbuOMA4C46bx7U1 PSVlHBHgFHX0rKN0wI6w bGlnbjogbGVmdDsgdmVy yQieZGciYPeqU311 IHRvcDsnPlBhdGllbnQg LlCcCUs2Q9HcZox7FUPf eCghYF5gvCWdBDdoXa3i jYhyfPdnMO7cVDRu utcfi489SsCwe7soEDJf vWHuAGqrGQP9N50xd8S4 IBTsIZVpRJQ9lZX5aM9q bGlnbjogbGVmdDsg gdKjjFpbPYgbALgkU418 IHRvcDsnPkJpcnRoIERh xEH5WT80BC58vWQnh1M9 mKW9Q7NfCLCdanir xyhejEN6SWQnXPYvnI33 Yl1kqKlzRs5cBAXwZSO7 AACopLVpO0AowG0gSeZo NIGdXTNkO9BnpCTx MZthA961VDsdDzZ5ITEr ieEdZ2SlBMIsaDoeEmJ1 v4L6Vl9GM0W5JP42BX78 dKNfv8C6mUE9H6Oe YLSykrhiznmawPM3KAFg QEWivG28Dl6fdLhgJi8t XWGvRVJ8JAIkzHSfF2Ic sE1zKuXmPQXzREIz G8JvsPCzVEigX740TIky GkW9QHAuphHrR4ZbFGRc eKrnGqH8h9S1Kz4KCEw6 SP91WI95sRQmf3L3 jZG1K9JtXMIgosmjtmst pBD7HBRkZIOnqB65Ct4h nSwyAy0hYPNaGHX0FGPi fSGxM4GoxU4gXoZj YCFtHZTrC3VjtMBcNHwc O179LOlnNuT8RQFnfnYo L9FeAQQfbMkkPkL8i2U3 Ll6VTAUmRN95UUU1 sNG7WV85DM23N0KzSyfd dGFibGU+PHRhYmxlIHdp ZHRoPScxMDAlJyBzdHls ES4aOc8iTGSrWSUz yCramJSrLhBpr0xeKRFd WFmhIA5pwLhdW9YviGZ2 CYKes9j5Hp82A63bX6Qf dXA+YOPipUT8hUO1 jG7rNnAoYcJ7VVrrI442 LrVjoLWwJxhdd7teg8cp fZt0IaR4GJHvucCtrUjo CNT9h3GtOr90C08j IHdpZHRoPSIxNSUiIHZh rKauft2mmS6uAx6+PGNv dLX7kML6rX8fGxYkSdX5 ZYtnT369JgXecJVi Uhnkq9dhz1vpqVt4IpEv FIGqxbVikWcwIIV0m0Rl Nr37K0PdqTehh0UsMjb3 zl22cNGht9G2rVY4 R7AnNAEsoamteECsiWbx KM4pBUCwkpvnALUpuX7x YEUiT0y5QkQrQeN6ORtc I7AuboF6LWQreDXt WRxtEOX9M58ek1H1UDWz EPYvUKE8rFH5hC4tzLvf bjogbGVmdDsgdmVydGlj IJfaJYwjL979EMAw dAxpTUOneY9nOLFmvLSp dKflLT3nDWFcpyzeSj5G LUZGTRNMXD4DJMlkgMC+ DJBrXAN1tNqdKJek VNKnbC3rJWNwZ4o1HmZz YrR1ZAjqR6ToCKJiynnu Mh71pJ1zRnAxJeO9FJdg B9OvoqA3FFMgtCZh FEtfKZX1A05td8U4STYf KCKmDSK5oZM6iZ1jyPdn bjogbGVmdDsgdmVydGlj IFqhXCkwK593PJPz sBlnDlE0FbS8UuP5KUI0 E8SwZqi7PWDduJoqSW7e vVIwRPcaNc0xcWdimOsl WT4iUBNuvzktOHKx mL1yCOXiuTQfgOpbPD4a SKJugibxc479BeNlDFR6 SRIzcKGiN0CoaJ3yBjZl WQBnYTUiO6MryYFi WSiqW384YAnhTvP6BZOf xiCwV6HzAIVsqDlkOxH4 s4V4Xv9bEZJIBHIkxdpy dGQ+EOFyIZO7bWlu ILtbHNFxlS3tBLXzQ2v7 ImGuZhA2OYbdG1ZvJAQj oaipWh59rT3wJlKlBzM3 BLbhX6CtanX8FOOi eHWeUQetFJN3B87po5L1 NUEbNUEfCNS9bNB3jK9c bGlnbjogbGVmdDsgdmVy cOlaDQrmLEmlI582 IHRvcDsnPkZlbWFsZTwv dGQ+XFElNZO2zXvhNZjj ZOTuxT2hLSDrU4v4KuJf GoE6SDrtU6XiXYBh acduAb32tW9dPlHeFrG0 FClyA8HyifM9JAYwdVDe GMqxMRP8A84ep5P9ISFp ZKZbCDE0aBS1iW3e bGlnbjogbGVmdDsgdmVy dRlaSVtoGZmfL270DCIm zWjpMfvwUgLKjq3sGL6j ZjwvdGQ+OW58du05 I9AtIjatRhb4UECgEYH4 gJQ1vD5vGAPfBRzya9Y2 vHF9I5KmizXlce3fi8cv HBOlEYchI07zyBCq g2Z9RIBlyNF8LUQcvWje GaLfxL42Dbc+PGNvbGdy e6LiYvdaf3oxh9tqpOk9 IjMwJSIgdmFsaWdu IJK2o1SfHq53M09gZJrg ZHRoPSIzMCUiIHZhbGln mi9pfV6vJw9+PGNvbCB3 tLL4wK4cUvCyOsB3 PPkqL792DhXtxVCaOndc p9rql3yeuAi7AkKgTTQg xfXtxNlqWFH2u3QcRi50 D7PbcZpaj1HdSzj3 ui82eKUeq7L9xUB6Q8Lq BAAjsqccnPRitSfgBK8u BVIwoytyRZXsnP5qKIUo E9d0QxPvBtG1RBpu B3IsbvT1UHGnmRNcAGPk wHPLlA4xtnnum5gegtkg DrTfYNEjQGv6JBb1ESSg fFyxYpFcXSP7TaC3 LAK4qYQbcM6juQmaotmf rJ9iWlo+RSv6i6jluXYh XK6lmUQ8DG65TK67wRWt o8I8jHZ4E7OnWNQn nldmjfsjiSZ0IOGvGVCn kP01Fd3riVzhOj2mVYHr CQV2DKOioIZvE7EfkB8z GpBeMFEjPCVgJ4Sd iALaHJnwD007AWokZdE6 UUHixjMaE3AxOSHecZyv XhD0l1K1Rs1OVV80BI30 AY24cAXib5X7uRL1 K2ExXNQzjrzmycobnPM5 KLSoXAKmzL25Ha8qdGyd Vl6ySQHvIHZ9DGEpzLCr P1HbwW6iGcTaEEYr HOGvU8JurAFgDQhbT703 SZoeIoL4HVBmoaOqO9Lp HOWsbJgdQyI5f8K6Rr8U Tc21QS08RO13eCWp f5F6yRC2D7GcJLKmhhhc lwagbNX5BLXbRPHfiS67 Wm6paAtcBc4hPUPnLNT0 PYAkiILgK5MhmQ7c LlWaWIPtEIPyK7KmuLZe RYvpD064PGmhIeE3KENy mxUaP4RkPTEvhQxeQaF5 b7Y2Ts9JMRkuaye3 B9FdTvdhvFT+IU78UFNe IW85uGJwmWZeq5ydaDo7 NaFgSCFaRNY0gMqyICzv n2EoLGToI67ewOBo c2U6 (more content not included)... Normal [facility] C Urineon 03-08-2022 Bacteria identified Cx Nom [...] Locations R1: This test was performed at: [facility], [address] [place] [address], [id number] , , [facility] Comment on above: Performed By: #### 2 [id number] ####[facility] [address] [place] [address] Reminderson 03-06-2022 Reminders - From: Lupis Turner To: EU - Clinical; Sent: 03/06/2022 14:52:59 EDT Show up: 03/09/2022 14:52:00 EDT Subject: UA micro, CX Reminder/Recall UA micro/culture done on 03/06/22 Normal [facility] URINALYSISOrdered By: Nazario doyle on 03-06-2022 Bacteria [...] PM) Normal Negative [facility] UA Auto SS [place].plasma/Lithiu m.RBC (Bld) [Mass ratio] 0-3 /HPF Normal [...] [Mass/Vol] Negative (03/06/22 2:52 PM) Normal Negative [facility] UA Auto SS Specific gravity (U) [Rel density] 1.015 *NA* (03/06/22 2:52 PM) Invalid Interpretation Code 1.005 - 1.030 [facility] UA Auto SS UA Spec Desc Random Urine (03/06/22 2:52 PM) Normal [facility] UA Auto SS Urobilinogen Qn (U) 0.3925019 {Shan'U}/dL Normal 0.0 - 1.0 EU/dL [facility] UA Auto SS WBC Auto Ql (U) Negative (03/06/22 2:52 PM) Normal Negative [facility] UA Auto SS WBC LM.HPF (Urine sed) [#/Area] 6-15 /HPF Invalid Interpretation Code 0-5/HPF [facility] UA Auto SS Urinalysison 03-06-2022 Bacteria LM Ql (Urine sed) 2+ /HPF Abnormal Trace [facility] Comment on above: Performed By: #### 1 [id number] ####[facility] [address] [place] [address] Bilirubin Ql (U) Negative Normal Negative [facility] Comment on above: Performed By: #### 1 [id number] ####[facility] [address] [place] [address] Clarity (U) SL CLOUDY Abnormal Clear [facility] Comment on above: Performed By: #### 1 [id number] ####[facility] [address] [place] [address] Color (U) YELLOW Normal Yellow [facility] Comment on above: Performed By: #### 1 [id number] ####[address] [address] Epithelial cells.squamous LM.HPF (Urine sed) [#/Area] 3-4 Normal 0-2 [facility] Comment on above: Performed By: #### 1 [id number] ####[facility] [address] [place] [address] Glucose Test strip (U) [Mass/Vol] Negative Normal Negative [facility] Comment on above: Performed By: #### 1 [id number] ####[address] [place] [address] Hemoglobin Ql (U) Negative Normal Negative [facility] Comment on above: Performed By: #### 1 [id number] ####[address] [address] Ketones (U) [Mass/Vol] Negative Normal Negative [facility] Comment on above: Performed By: #### 1 [id number] ####[address] [address] [place].plasma/Lithiu m.RBC (Bld) [Mass ratio] 0-3 Normal 0-3 [facility] Comment on above: Performed By: #### 1 [id number] ####[address] [address] Mucus Ql (Urine sed) TRACE Normal [facility] Comment on above: Performed By: #### 1 [id number] ####[address] [address] Nitrite Ql (U) Negative Normal Negative [facility] Comment on above: Performed By: #### 1 [id number] ####[address] [address] pH (U) 7.5 [pH] Invalid Interpretation Code 5.0-9.0 [facility] Comment on above: Performed By: #### 1 [id number] ####[address] [address] Protein (U) [Mass/Vol] Negative Normal Negative [facility] Comment on above: Performed By: #### 1 [id number] ####[address] [address] Specific gravity (U) [Rel density] 1.015 Invalid Interpretation Code 1.005-1.030 [facility] Comment on above: Performed By: #### 1 [id number] ####[address] [address] Type of Urine collection method Random Urine Normal [facility] Comment on above: Performed By: #### 1 [id number] ####[facility] [address] [place] [address] Urobilinogen Qn (U) 0.2 {Shan'U}/dL Normal 0.0-1.0 [facility] Comment on above: Performed By: #### 1 [id number] ####[facility] [address] [place] [address] WBC Auto Ql (U) Negative Normal Negative [facility] Comment on above: Performed By: #### 1 [id number] ####[facility] [address] [place] [address] WBC LM.HPF (Urine sed) [#/Area] 6-15 Abnormal 0-5 [facility] Comment on above: Performed By: #### 1 [id number] ####[facility] [address] [place] [address] Consent for Procedure/Surger yon 02-26-2022 Consent for Procedure/Surgery [id number] 9#1.00CD:127 Normal [facility] RAD - MISCon 02-26-2022 RAD - MISC [id number] 8#1.00CD:127 Normal [facility] RAD - Ultrasound Reporton RAD - Ultrasound Report [id number] #1.00CD:127 Normal [facility] Ambulatory Visit Summaryon 0 02-25-2022 Ambulatory Visit [...] Kwadwo SAEZ MD Where: [facility] [place] Smalls [facility] Patient Educationon 02-26-20 Patient Education Urology Kidney [...] these instructions at home: Medicines ? Take oaro-wlg-xfurpnr and prescription medicines only as told by [...] 04/13/2009 Document Revised: 03/13/2020 Document Reviewed: 03/13/2020 [email or web address] Patient Education ? 2019 [employer]. [facility] Urology Office/Clinic Noteon 02-25-2022 Urology Office/Clinic Note [...] urine The Urethra was dilated to: 18-30_ Swedish with sounds. urethra bled. dry. Removal: Cystoscope [...] EDT [facility] [address] [place] [address]- Additional Instructions: Patient Education Kidney Stones, Wkqj-tr-Inqb Devonte Nickerson personally scribed for Dr. Saez [...] Grandparent. Diagnostic Results Tests Reviewed: Reviewed UA. [facility] Comment on above: Result Comment: Elec tronically Signed By: Kwadwo SAEZ MD R\.br\Date and Time Signed: 02/25/22 15:21 EDT\.br\Electronically Co-Signed By: Devonte Echeverria\.br\Date and Time Co-Signed: 02/25/22 15:19 EDT Pre-Certification Formon Pre-Certification Form [id number] 0#1.00CD:127 [facility] Reminderson 02-10-2022 Reminders - From: Kristyn Echeverria MA To: EU - Clinical; Sent: 02/04/2022 16:03:36 EDT Show up: 02/08/2022 16:03:00 EDT Subject: Urine Culture Reminder/Recall Urine culture Pt is currently . ANNITA addressed [facility] C Urineon 02-07-2022 Bacteria identified Cx Nom [...] Locations R1: This test was performed at: [facility], [address] [place] [address], [address]- , , Normal [facility] Comment on above: Performed By: #### 2 [id number] #### [facility] [address] [place] [address] Performed By: #### 2 [id number] ####[facility] [address] [place] [address] Coding Summary.on 02-07-2022 Coding Summary. CD:[id number] Gh0bWw+PGhlYWQ+PE1FV XEwH02quZCbvB2CG9xRF D5PKOHKBUUTQB4IEN6iq NJ5OHdfD9HypnXr DkfwgRXjIP35KKp8HPU3 uNicQNewtJ0ubVCwV8p6 MkCwXO13nX79WLhpVVQs AiE5NqRjhqiopFUq F4isVxHecHBuYpq+PHRh YmxlIHdpZHRoPScxMDAl SbCjyFfsAZ5oTs3lXMHd LWNvbGxhcHNlOiBj q7ohFVUoTHgmVU9miQlj V7WoaKY7GDGbu8b7Fi37 dHI+HWEiGAY3iUmyAJzz v185QcXuk9czLYJ2 hTJoZRfuFQJ8A38vu1V7 RZKhRXTsYCM3gEL9aP5w wHdrfxheO9LbgGRuRwG2 OZD8wVXhaF4rfZib zlqpcZ6oFin+Q45YBL8Z OFJEZV6ZKum5M7BcZuvo dHI+XP73ANIcOH72oQLj aQIpx3njxYm3VuCa ZTAaCSQ2oSarASbsx0Dp EKCkT60elJFtt5W3PCCd pIhuuRNtWsHdpPC2kY6d SOcgtcrnt1gnbzwr Lfdal5wayr33qX89B62x FOmzGDNpAEO2TLQvEXXr iHqpjc8ljX2nXe2+IDxj w5ufy4vszYs6QxTo ZSRyljWccWcyCCB0e4Vp Yg12P5AfeWmbq7CqCzx8 xe57xXHno6M0aYS5PEkw JJYcpM0cJLzyXbP9 UYHhKgXjuJ29bELaFUef Ou4ctErexFnkNB1pSIKw emyaCFGstJ1iLPWiaBXz vZkaJN3sROQdetwm c050EzXhABP0BEOpmOWy C5QimY0bLxUfIWDlWVYs Y0HxdXXcQOktP886QHcf PkU4WQXarcJtN4Zk GIQfkSoiLiS7z1R6Ke5V h0YscqxyQYR7ZZpyVESy HzUaBdQnZaR3U5ZhAgj5 LYPdpDprYS0dU2Wj PXBnfkqkrzjgsBS8VVFp CVVbuG21nUIjJZlmXc2n l9Q2f782VIGhTAGclQ45 Vl7beJzqVOJabHUV oG8mtvhks4rryxthZzNp EKOhZPi4DWc1APGljUoi RiXnIXV2QvY0OGI0yOPf qP1phYgbockosM2t Oyc+M88eiI3iVKG3UUB1 ndfySEHdzfQoVZ57KG28 Q9ZuFfgsdHWxvIV+PGRp bgLyeBozPB8aOrEs l7shc4PcGFgbS8NlEXVr OAupXdl0PLIbBIM7cMY7 zM5nTSQwVUqgt5P6oRX6 S6UeivKzjr7up5xz PRGjIPdeM75tgGNub8M6 SYHxmFE0EDKwqKkpZqIy bW51Hai+QTXgtKijy7Zc Qvplo2tao8mwwDd9 IjMwJSIgdmFsaWduPSJ0 f6IpHz40X42pVUjsGPRc OTLpGRDfBEBnjVcyoy0v sI3sEa2+PGNvbCB3 bZX2dS3lQERfAvJ8SCcm B094ZqVbhYEaDsydu8sa a2zhrOm6TkRyOPGuiiEl gLbvAQL7l4MvKy06 Y08xBLpjBGYaHYJjPIMy VDOgwLvxve1vkO8nUh5+ PH7up1uifb60sS48uTU+ UNDsIKR7hJweHQlx AIZksI5bLHjzFiI3EHAo WwZifW98lWVzOTyxPk4k aHotgEcdAM3bEQEfmhqb x426QfIan5vvYEOd mMIlIUscQUV8P55fn9R1 QJLsVZRxPKT8dIJ9vY3x bGlnbjogbGVmdDsgdmVy tCsbVZhkIVcqK771 IHRvcDsnPlBhdGllbnQg NyAuDEu7Z7MrMbh9GZYm rNgxUS2bjRDvSUcsZd4r tHhuhVlhYJ2aOLPa ipyyq221OmCkm9hbUBIj aPLoVTkxXXA7D38fm0V6 LNWqQMCkJLH1kMF4cE1c bGlnbjogbGVmdDsg tiAnjBlhVObiTJurG121 IHRvcDsnPkJpcnRoIERh rXH1YP91GD07eWXbi2G8 rBT7N7WnGBIglurc rafrqZA0GVXwGFAsuF04 Di7ghCnvXf1sUZNrLBP7 NQDbaREgF6SexH1tNoLo EYLkSIDfB8DakTUz IKqeG995BPyuUkZ1HGHk fwKjI6BdFDPgtPsmSlJ4 b4K1Fy1FT5X2KT24VZ29 jFQzi9X5wCN9Y0Wi JBSzzlkzoklfuAK4PEPb JJJsaX55Hn5tuQmlFn6t IOHdLNF1DTNxoGBsD1Rw jG3sZvZaBVXkYBGl N0VseZAbOUbjA772LZcl ElO6OWKeppXkF9EiAZSf fJpyKsA4u2P8Sx6UTSb1 IC02IW38tQZbo0R8 aIT1M6XdYLVgzagudomo yTV3RMMtOPIkjD37Ar5p nZooLe8xBYIfSPB6TNYz mYTjS2GkoW9kLkXs YNNvWXRcN4BlqVLvEYnu A935TTlqYoU9YVVqsvOl M2XfUJCsfWebHcB6j9L5 Ja0ZNYGmLQ38TDL2 sRA5YQ14SE54S6AfRwes dGFibGU+PHRhYmxlIHdp ZHRoPScxMDAlJyBzdHls JH5sAc7pKADxFJXc uOubpSCrXmCeh2nwXBDt EMhlYC0ivGebO5RitUL8 XWHoh6f7En59U96vM6Vj dXA+QPDxzJD5qWX0 jP9eBtKcRoZ1PVzqN823 MxPlaKXgTmjhz5cmt7oz eIc2WgT5RDTwgyDpqQcj YSX0y7PoTo62X74t IHdpZHRoPSIxNSUiIHZh zGllbx9dcS5eSx6+PGNv nGS7aUP4gI3fPbKdVtV2 LXwmG084NvRovWEp Kwrjs4zzg5oyhSn0VdXa SQItbfCnwVyfLXF0p1Sk Xk77Q6MuxInkx4UxFio9 bs25qVUnk1U4fCN9 Z1DxOBVypchqnIBssAxd BC7iVQCetgazGIPxtX4b SHIuB4q8JaOyYvT8QXre O6NxyuV3JNJxiPPf ZTlfRAX3U61qj9F0JSYv XHZkVFZ6gRW7wP5dhJzq bjogbGVmdDsgdmVydGlj VWnsCShaY321NINq cZmmTEDuuW5bZTFggRJx eIowJT4mAUPetftgKu0Z GMYVTWSPBH2DSCkdnXW+ NTGuRBT7pJplNLtf CCLccJ7eUFYmV2e9BnOj TdR1IXcuZ0TlGBKllcmt Rl56vH7hRkNoLjX0PMjc W5JgcxJ4IAJqyNUt ZNksLBT9B23vi6B8YJWi HNUzIOX7eTV0gH8mhYvt bjogbGVmdDsgdmVydGlj EMtlKMbdE902OCQd vHzuUwO2VcC2OrW8UFW1 U2StCrc3PAZmsTvjUT9k hEIfKFngEz5zxXiytSjk VR3aVWJazotxQODy oZ9rVGHihDPqeZfcMU4d ARGutsqhd985FfNgSHF6 EDDoqVCrI5MyyQ0rSkJa QFTdMFYoF8ZklAYx IQmcG293PKgrTiQ8TRWj drEaB5XhOKMtsRtcAnO8 j2B0Yw3kVZUQGTRoivwj dGQ+XCEvHQQ4xKth YWtzKIIyqP9eRZArL5w8 IlMsJnU6CHhdP0AvMMPb uxzxIo94jR4qAiFfFuD2 LJukK5HckcH8CGGr tJCqMXhqEIW1U43zo0T9 JEWlVJLvVRY4gDX7kK9b bGlnbjogbGVmdDsgdmVy cVrvTKxrXNsqY490 IHRvcDsnPkZlbWFsZTwv dGQ+PJRfWAD6dUggYObi SXBlcQ0eMZAxA9k0TlBp OxX0WXccR7OuBUHk fienEm43kZ0pAiTnHbP7 QCrcV5VgsrM8ZZVumVPs GEieHSG4T33kj9G1RRQb YOByHFT8qDG0mJ4l bGlnbjogbGVmdDsgdmVy vBcjZZtbMPvdK351PILf tPxkCuuaOlUHkn4aBC9d ZjwvdGQ+HI95ve04 K3SeCcshDaa7JYEaRAN4 pLI9rE3eOEYuOYpsk1U8 jYU5J8GpdySnth1fb9yu AEBmGZexI73dxMLd t5A5FGDmhSH9ZRAodMdl CyJyaY20Evl+PGNvbGdy g8UiCkath1mko2npvOy6 IjMwJSIgdmFsaWdu PZI1y1KjNo37K25wUIiz ZHRoPSIzMCUiIHZhbGln xh1acW3dQp8+PGNvbCB3 kSD7lE4aEvEmXpP2 UEvgO238EoElpZDdRxbn w7jyq0efkAo9NgLkYGTc yaDjyAbeGIF8h0FdZb72 C7ScbLhcf1TsGrk9 xw62hACpv0A1kXM0D8Rl MHXhqgzowXYcbTkyLR3w TJEiyodiQCWsyG2gLRKw D0i6YyMtDdW6NWvo B7OecwC8IMMxyVOfPFZt jDJDyY2ymsbom9rvnzoq WfMlQUEpRUs7WVi1NVOv tMuvScPqXXL0McH7 WQO9tPRfrN0feYkdvjmk bW5rMpk+PSg0y8wnhRLk SE5gvHU4EA60OE25yJEn t8D8gSE7M3BcPABq royabbnnaZB9TGFiGMOu aJ99Bj9uxBtqHg0qYCAm BTG5IQWptEImZ7JcxK4l MmPwKBRyLSZwG1Yz rLNyNGgfI426RFntLuX0 ZMJzmkZhZ7UaKOKvpDjd BmJ6z6T2Fg3HZH98TA45 MS91sOWog0I2aRX8 Z6OxPJSgnxcrtaxafNO2 NFZfCIFawP44Se1ocRfk Qv4xZXStGMW8HXLazHLm J6GoxB1lGcKeNVVs BJZaC3WgzIEfIEvfG274 IQajNkN8FUJqvdSwW9Lt OWEonKqcAfH6s5F3Wu1G Xo60VM44HG33aVSf m9M0bXS7I5UfGOBvwvlo aszytLB3CPSiKGUueJ61 Tb2ovVrmBl7gKXGqMOJ1 YSIeyWNuX3IupG6o UpFtTUYoVFUfV6YobHVp QIxgK665OEnkOkN7UKFw byCnW5RrKSWppQnrHcA0 k9V7As6HHNyoteg7 T4GlNaamiCB+WF04SEPo MH57iLYgkEKwd3fgkBf7 VkHxHUYcSRZ2aCetTBwb o3MeAVHaL20ivOYo c2U6 (more content not included)... Normal [facility] US renal BIon 02-07-2022 US renal BI [facility] [place] [address] Ultrasound Report Signed Patient: Jessa Chatman MR#: [id number] 9 : 1985 Acct:[id number] Age/Sex: 36 / F ADM Date: 02/07/22 Loc: Room: Type: [facility] Attending Dr: Saida Abad PA-C Ordering Provider: [...] DO 02/07/22 1522 Signed By: 02/07/22 1524 [facility] XR KUBon 02-07-2022 XR KUB [facility] [place] [address] [place] [address] XRay Report Signed Patient: Jessa Chatman MR#: [id number] 9 : 1985 Acct:[id number] Age/Sex: 36 / F ADM Date: 02/07/22 Loc: Room: Type: [facility] Attending Dr: Saida Abad PA-C Ordering Provider: [...] Mark Stark M.D.02/07/2022 3:13 PM Dictation Location: [facility] Transcribed By: KARI 02/07/22 1513 Dictated By: Mark Stark DO 02/07/22 151 Signed By: 02/07/22 151 [facility] Patient Educationon 02-05-20 Patient Education Pharmacology Antibiotic [...] Trouble breathi (more content not included)... Normal [facility] Urology Office/Clinic Noteon 02-04-2022 Urology Office/Clinic Note Chief Complaint referred for recurrent UTI. HPI Staff Jessa is here today as a new patient referred by Herve [employer] for recurrent UTI.Started Cleocin 300mg on 12/24/21 [...] on Cleocin x 7d in Dec per MANAGER SCHEDULING. pt has not noticed any connection with [...] baths & hot tubs, avoid any scented MANAGER SCHEDULING products, urinate after sexual activity, etc) PVR [...] E&M of New Patient Moderate 45-59 Min 35438 Urnls Dip Stick Auto w/o Microscopy POC 88036 US Renal XR Abdomen 1 View Orders: [...] Protein Urine Dipstick: Negative (02/04/22 14:41:00) Specific [place] Urine Dipstick: 1.025 (02/04/22 14:41:00) Urine Appearance Urine Dipstick: (more content not included)... Normal [facility] Comment on above: Result Comment: Elec tronically Signed By: SAIDA ABAD PA-C.br\Date and Time Signed: 02/04/22 16:12 EDT Vital Signs Date Time Vital Sign Value Performing Clinician Facility 06-25-2022 09:14-0400 Blood Pressure Location Jalen Mora [facility] 06-25-2022 09:14-0400 Diastolic blood pressure 86 mm[Hg] Jalen Mora [facility] 06-25-2022 09:14-0400 Heart rate 77 /min Jalen Mora [facility] 06-25-2022 09:14-0400 Systolic blood pressure 130 mm[Hg] Jalen Mora [facility] 06-18-2022 10:45-0400 Body height 162.56 cm Devin Lam Other [facility] Other 06-18-2022 10:45-0400 Body mass index (BMI) [Ratio] 28.49 kg/m2 Devin Lam Other [facility] Other 06-18-2022 10:45-0400 Body weight 75.3 kg Devin Lam Other [facility] Other 06-18-2022 10:45-0400 Diastolic blood pressure 76 mm[Hg] Devin Lam Other [facility] Other 06-18-2022 10:45-0400 Respiratory rate 16 /min Devin Lam Other [facility] Other 06-18-2022 10:45-0400 SaO2% (BldA) [Mass fraction] 99 % Devin Lam Other [facility] Other 06-18-2022 10:45-0400 Systolic blood pressure 118 mm[Hg] Devin Lam Other [facility] Other 05-13-2022 16:00-0400 Body height 162.56 cm Devin Lam Other [facility] Other 05-13-2022 16:00-0400 Body mass index (BMI) [Ratio] 29.73 kg/m2 Devin Lam Other [facility] Other 05-13-2022 16:00-0400 Body weight 78.56 kg Devin Lam Other [facility] Other 05-13-2022 16:00-0400 Diastolic blood pressure 68 mm[Hg] Devin Lam Other [facility] Other 05-13-2022 16:00-0400 Respiratory rate 16 /min Devin Lam Other [facility] Other 05-13-2022 16:00-0400 SaO2% (BldA) [Mass fraction] 97 % Devin Lam Other [facility] Other 05-13-2022 16:00-0400 Systolic blood pressure 114 mm[Hg] Devin Lam Other [facility] Other 04-16-2022 10:30-0400 Body height 162.56 cm Devin Lam Other [facility] Other 04-16-2022 10:30-0400 Body mass index (BMI) [Ratio] 30.72 kg/m2 Devin Lam Other [facility] Other 04-16-2022 10:30-0400 Body weight 81.19 kg Devin Lam Other [facility] Other 04-16-2022 10:30-0400 Diastolic blood pressure 80 mm[Hg] Devin Lam Other [facility] Other 04-16-2022 10:30-0400 Respiratory rate 16 /min Devin Lam Other [facility] Other 04-16-2022 10:30-0400 SaO2% (BldA) [Mass fraction] 99 % Devin Lam Other [facility] Other 04-16-2022 10:30-0400 Systolic blood pressure 130 mm[Hg] Devin Lam Other [facility] Other Encounters Encounter Date Encounter Type Care Provider Facility Start: 10-28-2023 End: 10-28-2023 ambulatory MOUNA LUIS M Not Available Start: 10-23-2023 End: 10[facility]23[facility] [facility] Start: 10-08-2023 End: 10-08-2023 ambulatory MOUNA LUIS M Not Available Start: 09-23-2023 End: 09-23-2023 ambulatory MOUNA ANGEL Not Available Start: 04-15-2023 End: 04-15-2023 ambulatory Devinkye Arroyoelias Other [facility] Other Start: 04-15-2023 Telephone encounter Devin Lam [facility] Start: 01-19-2023 End: 01-19-2023 ambulatory Devin Lam Other [facility] Other Start: 01-19-2023 Telephone encounter Devin Lam [facility] Start: 12-19-2022 End: 01-07-[address] MOUNA ANGEL . Facility:[facility] Start: 12-05-2022 End: 12-06-[address] MOUNA ANGEL . Facility:[facility] Start: 11-19-2022 End: 11-19-[address] MOUNA ANGEL . Facility:[facility] Start: 11-16-2022 Encounter for preprocedural laboratory examination DR MOUNA ANGEL . [facility] Start: 11-13-2022 End: 11-14-[address] [...] encounter procedure Dasia Addison [facility] Start: 06-25-2022 End: 06-25-2022 Patient encounter procedure Jalen Mora [facility] Start: 06-18-2022 End: 06-18-2022 ambulatory Devin Genaro Other [facility] Other Start: 06-18-2022 Office outpatient vi sit 15 minutes Devin rCuzs [facility] [place] Start: 05-13-2022 End: 05-13-2022 ambulatory Devin Cruzs Other [facility] Other Start: 05-13-2022 Office outpatient vi sit 15 minutes Devin Cruzs [facility] [place] Start: 04-16-2022 End: 04-16-2022 ambulatory Devinkye Arryoos Other [facility] Other Start: 04-16-2022 Office outpatient vi sit 25 minutes Devin Cruzs [facility] [place] Start: 04-15-2022 End: 04-15-2022 Lab Drop off SAIDA ABAD [facility] Start: 04-15-2022 End: 04-15-2022 Patient encounter procedure Kwadwo SAEZ [facility] Start: 03-06-2022 End: 03-06-2022 Lab Drop off Kwadwo SAEZ [facility] Start: 03-06-2022 End: 03-06-2022 Patient encounter procedure Ravinder MCCAULEY [facility] Start: 02-04-2022 End: 02-04-2022 Lab Drop off SAIDA ABAD [facility] Procedures Date Procedure Procedure Detail Performing Clinician Start: 11-09-2013 Colonoscopy and biop sy of colon Kwadwo SAEZ Start: 11-09-1989 History of tonsillectomy Kwadwo SAEZ Start: 11-09-1989 Tonsillectomy SAIDA ABAD Start: 11-09-1989 Tympanotomy SAIDA WAKEFIELD Immunizations Immunization Date Immunization Notes Care Provider Fa cility 11-09-2020 SARS-CoV-2 mRNA (tozinameran 5y-11y) vaccine Jalen Mora [facility] Comment on above: Result Comment: 2 [facility] 03-10-2015 tetanus toxoid, reduced diphtheria toxoid, and acellular pertussis vaccine, adsorbed Kwadwo SAEZ [facility] Comment on above: Reason for Medicatio n: Other (see comment) NEGATED: Highlighted row has not occurred!02-19-2019 influenza, seasonal, injectable Patient Objection Devin Lam Other [facility] Other Payers Date Payer Category Payer Unknown [id number] 2.16.84 [id number] 1986 Unknown [id number] 2.16.84 [id number] 1986 Unknown [id number] 2.16.84 [id number] 1986 Unknown [id number] 2.16.84 [id number] 1986 Unknown [id number] 2.16.84 [id number] 1986 Unknown [id number] 2.16.84 [id number] 1986 Unknown [id number] 2.16.84 [id number] 1986 Unknown [id number] 2.16.84 [id number] 1986 Unknown [id number] 2.16.840 .[id number] 1986 Unknown [id number] 2.16.840 .1.241556.3.579.2.1259 1986 Unknown [id number] 2.16.840 .[id number] 1959 Unknown [id number] 2.16. [id number] 1959 Unknown [id number] Social History Date Type Detail Facility Start: 02-04-2022 End: 02-25-2022 Tobacco smoking status Never smoked tobacco (finding) [facility] Tobacco smoking status Never [facility] Sex Assigned At Female [facility] Functional Status Date Assessment Result Facility 06-25-2022 Functional Status N/A [facility] Clinical Notes 02-04-2022 to 10-23-2023 Note Date & Type Note Facility 10-23-2023 Note F/U with OB and mate rnal medicine as scheduled [facility] 10-23-2023 Note [facility]TP CARDIOLOGY PROGR ESS NOTE HPI: Jessa Chatman is a 38 y.o. female here for tachycardia during Patient here per Dr. Angel for tachycardia in . She is currently 32w5d along. GUN STOCK CHECKER started her on metoprolol tartrate 25mg daily [...] scheduled RTC 2-3 months or as needed [facility] 10-23-2023 Note Patient here per Dr. Angel for tachycardia in . She is currently 32w5d along. GUN STOCK CHECKER started her on metoprolol tartrate 25mg daily a few weeks ago, which as helped with palpitations. HR gets as high as 147 at rest sometimes. This issue went away after the of her last baby. Review of Systems Cardiovascular: Positive for dyspnea on exertion. Neurological: Positive for light-headedness. All other systems reviewed and are negative. [facility] 04-15-2023 Evaluation note Encounter Date Diagnosis Assessment Notes Apr, Spontaneous rupture of tympanic membrane of right ear concurrent with and due to acute suppurative otitis media (ICD-10 - H66.011) [facility] Other 01-11-2023 NoteOPERATIVE NOTE OPERATION DATE: 11/19/2022 PROCEDURE: Suction D AND C. PREOPERATIVE DIAGNOSIS: Missed first trimester. POSTOPERATIVE DIAGNOSIS: Missed first trimester. ANESTHESIA: General. SURGEON: Mouna Angel D.O. BROTH MIXER: None. FINDINGS: Products of conception. SPECIMEN: Products [...] products of conception were removed using a 9-Swedish suction curette. Excellent hemostasis was noted. The patient tolerated the procedure well. Sponge, lap, and needle counts were correct x 2. All instruments were then removed from the patient's vagina. The patient was taken to the Recovery Room in stable condition. [id number] + Plan note Diagnostic Tests Pending * UTI ([facility]) 07/03/22 [facility] 08-17-2022 Hospital Discharge instructions Patient Education 06/25/2022 [...] Follow these instructions at home: Medicines Take nzpz-bli-rpdpphz and prescription medicines only as told by [...] 10/26/2006 Document Revised: 03/13/2020 Document Reviewed: 03/13/2020 [employer] Patient Education 2019 [employer]. 06/25/2022 09:59:21 Urinary Tract Infection, Adult Urinary [...] Treatment for this condition includes: Antibiotic medicine. Taeb-reh-stiacox medicines to treat discomfort. Drinking enough water [...] Follow these instructions at home: Medicines Take skly-vgt-axxxybi and prescription medicines only as told by [...] 08/05/2006 Document Revised: 10/13/2019 Document Reviewed: 05/05/2019 [employer] Patient Education 2020 [employer]. [facility] 08-10-2022 Evaluation note* Encounter Date Diagnosis [...] that she can go off it completely. [facility] Other 07-05-2022 Evaluation note* Encounter Date Diagnosis [...] calf. I recommened a consult with a computer teacher. Patient would like to hold off on the referral for now. [facility] Other 06-08-2022 Evaluation note* Encounter Date Diagnosis [...] or any other dysrhythmias. She voices understanding [facility] Other 03-29-2022 Evaluation + Plan note Diagnostic Tests Pending * [facility] Appointment Date:07/02/2022 02:45:00 PM Scheduled Provider:Kwadwo SAEZ MD Location:[facility] Appointment Type:URO Office Visit [facility] Evaluation + Plan note Future Appointments Appointment Date:07/02/2022 02:45:00 PM Scheduled Provider:Kwadwo SAEZ MD Location:[facility] Appointment Type:URO Office Visit Diagnostic Tests Pending * Urine [facility]ments Appointment Date:07/02/2022 02:45:00 PM Scheduled Provider:Kwadwo SAEZ MD Location:[facility] Appointment Type:URO Office Visit Diagnostic Tests Pending * Urine Culture [facility]15[facility]22 [facility] Other History general Narrative - Reported* Type Description Date Medical History Anxiety Hospitalization History childbirth [facility] Other Hospital course Narrative No data available for this section [facility] No data available for this section [facility] No data available for this section [facility] Summary Purpose Family History No Family History [...] (H66.011) Referral Organization [facility] [place] Referring Provider First Name Devin Referring Provider Last Name Genaro Referring Provider Specialty Family Prac brittanie Referred Organization [facility] Referred Provider Aldo Bolanos Referred Address ,[place], [place],[address] Referred Provider Specialty Otolaryngolo gy Referral Priority Routine General Notes Fore, Higinio M 023 12:56:47 PM >Received today. [facility] request us to send the referral and they will call and schedule patient. Referral was fax Clinical Notes Office [phone] Additional Source Comments INFORMATION SOURCE (unrecogn ized section and content) DATE CREATED AUTHOR 02/26/2022 [facility] [facility] DATE CREATED AUTHOR AUTHOR'S ORGANIZ ATION 07/04/2022 [facility] DATE CREATED AUTHOR AUTHOR'S ORGANIZ ATION 07/05/2022 [facility] [employer] [facility] DATE CREATED AUTHOR AUTHOR'S ORGANIZ ATION 01/21/2023 [facility] DATE CREATED AUTHOR AUTHOR'S ORGANIZ ATION 10/25/2023 [facility] DATE CREATED AUTHOR AUTHOR'S ORGANIZ ATION 10/29/2023 [facility] EPIC REASON FOR VISIT (unrecogniz ed section and content) weight management/ UTI4 week follow up-weight mgmt.1 month Follow up weight managementClinicalClinical Care Team (unrecognized sect ion and content) Personnel Name: DEVIN LAM DO Address: [address] [place] [address] Personnel Name: DEVIN LAM DO Address: [address] [place] [address] FOR RECORDS PERTAINING TO PATIENTS WHO ARE [...] BE BASED ON THE PRIMARY CLINICAL RECORDS. [facility] [employer] [facility]. provides no warranty or guarantee of the accuracy or completeness of information in this document.
[2023-11-06 09:03] VITALS: BP 135/76; PULSE 96
== END 2023-11-06 10:00 | disposition home or self-care (01) ==
LOC: FBCO 07:02 → FBC 08:51
PROVIDERS: Visit Provider Obstetrics & Gynecology
DX: O26.843 Uterine size-date discrepancy, third trimester (principal); O09.523 Supervision of elderly multigravida, third trimester
CPT/HCPCS: 59025

== ENCOUNTER 2023-11-10 07:42 | Outpatient (OUT) | payer BC, SELFPAY ==
--- OUTSIDE RECORDS SUMMARY | 2023-11-10 07:43 | XMS_ITS | CCD ---
Author Name Unknown Address [address] [place] [address] Organization [facility] Care Team Providers Care Actuary Clerk Name Role Phone DEVIN LAM Primary Care [...] Translations: [acetaminophen-hy drocodone] Drug Allergy Nausea (finding) [facility] (13 sources) Banana Extract; Translations: [Banana] Drug Allergy 09-10-20 20 Itching (finding) [facility] (8 sources) Melon; Translations: [melon] Drug allergy 09-10-20 Itching (finding) [facility] (5 sources) Melon Propensity to adverse reactions Unknown [facility] (1 source) Acetaminophen / HYDROcodone Drug Allergy 09-10-20 20 [facility] (1 source) Acetaminophen / HYDROcodone; Translations: [HYDROCODONE-ACET AMINOPHEN] Drug Allergy 04-10-[address] [facility] Repository Medications Current Medications Medication Drug Class(es) [...] day(s), # 90 cap(s), Refills(s) 0, Pharmacy: [facility] [id number] [facility], 162, cm, 02/25/22 14:21:00 EDT, [...] procedure, # 2 cap(s), Refills(s) 0, Pharmacy: [place] [id number] [facility], 162, cm, 02/04/22 14:57:00 EDT, Height/Length Dosing, 75, kg, 02/04/22 14:57:00 EDT, Weight Dosing Start Date: 02/04/22 Status: Ordered citalopram 20 mg oral tablet (10 sources) Serotonin Reuptake Inhibitor Start: 02-04-2022 take 1 mg by mouth once daily CeleXA 20 mg Tab mg tab(s), Oral, Daily, Refills(s) 0 Start Date: 02/04/22 Status: Ordered take 0.5 tablet by [facility] every twenty-four hours Citalopram Hydrobromide 20 MG 0.5 tablet Orally Once a day Active Docusate (9 sources) Start: 02-04-2022 take 1 mg by mouth twice daily Dulcolax Stool Softener mg, Oral, BID, Refills(s) 0 Start Date: 02/04/22 Status: Ordered Start: 03-09-2015 take 1 capsule by mo [facility] twice daily as needed for constipation Colace [...] Status: Ordered take 1 capsule by mo [facility] once daily at bedtime Macrobid 100 MG [...] 10 day(s), 20 tab(s), Refill(s) 0, [facility] [id number], 162, cm, 02/25/22 14:21:00 EDT, [...] Range Facility Office Visiton 10-23-2023 Follow-up visit [id number] Jessa Chatman 1985 F Date Provider Department Center 10/23/2023 Abelino-ARACELI MCKENZIE [facility] No family history on file Level of Service:36857 AR OFFICE/OUTPATIENT ESTABLISHED MOD MDM 30-39 MIN Normal [facility] PROGRESSon 10-23-2023 Beta HCG ( test) Ql [...] sugar. She voiced understanding of risks. Normal [facility] PREG QUANT HCGon 12-19-2022 HCG QUANT 5 mIU/mL Normal [facility] Comment on above: Performed By: #### P REGQNT #### [facility] [address] [place] [address] Dr. Fadi Meza HCG RANGE SEE BELOW Normal [facility] Comment on above: Result Comment: 5-50 0.2-1 WEEK 50-500 1-2 WEEKS 100-5,000 2-3 WEEKS 500-10,000 3-4 WEEKS 1,000-50,000 4-5 WEEKS 10,000-100,000 5-6 WEEKS 15,000-200,000 6-8 WEEKS 10,000-100,000 2-3 MONTHS Performed By: #### P REGQNT #### [facility] [address] [place] [address] Dr. Fadi Meza PREG QUANT HCGon 12-05-2022 HCG QUANT 43 mIU/mL Normal [facility] Comment on above: Performed By: #### P REGQNT #### [facility] [address] [place] [address] Dr. Fadi Meza HCG RANGE SEE BELOW Normal [facility] Comment on above: Result Comment: 5-50 0.2-1 WEEK 50-500 1-2 WEEKS 100-5,000 2-3 WEEKS 500-10,000 3-4 WEEKS 1,000-50,000 4-5 WEEKS 10,000-100,000 5-6 WEEKS 15,000-200,000 6-8 WEEKS 10,000-100,000 2-3 MONTHS Performed By: #### P REGQNT #### [facility] [address] [place] [address] Dr. Fadi Meza CBC AUTO DIFFon 11-19-2022 BASO # 0.0 103/ul Normal 0.0-0.1 [facility] Comment on above: Performed By: #### C VDTBH #### [facility] [address] [place] [address] Dr. Fadi Meza Basophils/100 WBC (Bld) 0.7 % Normal 0.2-2.0 [facility] Comment on above: Performed By: #### C VDTBH #### [facility] [address] [place] [address] Dr. Fadi Meza EO # 0.1 103/ul Normal 0.0-0.7 [facility] Comment on above: Performed By: #### C VDTBH #### [facility] [address] [place] [address] Dr. Fadi Meza Eosinophils/100 WBC (Bld) 2.1 % Normal 0.9-7.0 [facility] Comment on above: Performed By: #### C VDTBH #### [facility] [address] [place] [address] Dr. Fadi Meza Erythrocyte distribution width (RBC) [Ratio] 13.7 % Normal 11.0-15.0 [facility] Comment on above: Performed By: #### C VDTBH #### [facility] [address] [place] [address] Dr. Fadi Meza Hematocrit (Bld) [Volume fraction] 36.9 % Normal 36.0-48.0 [facility] Comment on above: Performed By: #### C VDTBH #### [facility] [address] [place] [address] Dr. Fadi Meza Hemoglobin (Bld) [Mass/Vol] 11.8 g/dL Critically low 12.0-16.0 [facility] Comment on above: Performed By: #### C VDTBH #### [facility] [address] [place] [address] Dr. Fadi Meza IG # 0.01 10e3/ul Normal 0.00-0.03 [facility] Comment on above: Performed By: #### C VDTBH #### [facility] [address] [place] [address] Dr. Fadi Meza IG % 0.2 % Normal 0.0-0.5 [facility] Comment on above: Performed By: #### C VDTBH #### [facility] [address] [place] [address] Dr. Fadi Meza LYMPH # 1.3 103/ul Normal 1.2-3.8 [facility] Comment on above: Performed By: #### C VDTBH #### [facility] [address] [place] [address] Dr. Fadi Meza Lymphocytes/100 WBC (Bld) 29.3 % Normal 20.5-60.0 [facility] Comment on above: Performed By: #### C VDTBH #### [facility] [address] [place] [address] Dr. Fadi Meza MANUAL DIFF REQ NO Normal [facility] Comment on above: Performed By: #### C VDTBH #### [facility] [address] [place] [address] Dr. Fadi Meza MCH (RBC) [Entitic mass] 28.4 pg Normal 26.7-34.0 [facility] Comment on above: Performed By: #### C VDTBH #### [facility] [address] [place] [address] Dr. Fadi Meza MCHC (RBC) [Mass/Vol] 32.0 g/dL Normal 29.9-35.2 [facility] Comment on above: Performed By: #### C VDTBH #### [facility] [address] [place] [address] Dr. Fadi Meza MCV (RBC) [Entitic vol] 88.9 fL Normal 81.0-99.0 [facility] Comment on above: Performed By: #### C VDTBH #### [facility] [address] [place] [address] Dr. Fadi Meza MONO # 0.5 103/ul Normal 0.3-0.8 [facility] Comment on above: Performed By: #### C VDTBH #### [facility] [address] [place] [address] Dr. Fadi Meza Monocytes/100 WBC (Bld) 10.6 % Normal 1.7-12.0 [facility] Comment on above: Performed By: #### C VDTBH #### [facility] [address] [place] [address] Dr. Fadi Meza NEUT # 2.5 103/ul Normal 1.4-6.5 [facility] Comment on above: Performed By: #### C VDTBH #### [facility] [address] [address] [address] Fadi Meza Neutrophils/100 WBC (Bld) 57.1 % Normal 43.0-75.0 [facility] Comment on above: Performed By: #### C VDTBH #### [facility] [address] [address] [address] Fadi Meza Platelet mean volume (Bld) [Entitic vol] 9.4 fL Critically low 9.5-13.5 [facility] Comment on above: Performed By: #### C VDTBH #### [facility] [address] [place] [address] Dr. Fadi Meza PLT 210 103/ul Normal 150-450 [facility] Comment on above: Performed By: #### C VDTBH #### [facility] [address] [place] [address] Dr. Fadi Meza RBC 4.15 106/ul Critically low 4.20-5.40 [facility] Comment on above: Performed By: #### C VDTBH #### [facility] [address] [place] [address] Dr. Fadi Meza WBC 4.3 103/ul Normal 4.0-11.0 [facility] Comment on above: Performed By: #### C VDTBH #### [facility] [address] [place] [address] Dr. Fadi Meza PREG QUANT HCGon 11-19-2022 HCG QUANT 22863 mIU/mL Normal [facility] Comment on above: Performed By: #### P REGQNT #### [facility] [address] [place] [address] Dr. Fadi Meza HCG RANGE SEE BELOW Normal [facility] Comment on above: Result Comment: 5-50 0.2-1 WEEK 50-500 1-2 WEEKS 100-5,000 2-3 WEEKS 500-10,000 3-4 WEEKS 1,000-50,000 4-5 WEEKS 10,000-100,000 5-6 WEEKS 15,000-200,000 6-8 WEEKS 10,000-100,000 2-3 MONTHS Performed By: #### P REGQNT #### [facility] [address] [address] [address] Fadi Meza US PREG <14 WKSon 11-19-2022 US PREG <14 WKS Obstetrical ultrasound, 1st trimester CLINICAL: Evaluate prior to scheduled DANDC. TECHNIQUE: Transabdominal and transvaginal obstetrical ultrasound was performed. FINDINGS: Comparison: Ultrasound 11/12/2022 There is a single intrauterine fetus. Godfrey-rump length is 1.81 cm, correlating with gestational age 8 weeks 3 days. No heart tones are detected. IMPRESSION: 1. Single intrauterine nonviable gestation. No heart tones detected, and no growth since previous ultrasound 11/12/2022. Electronically authenticated by: RUCHI FRANK Date: 2022-11-19 13:17 Normal [facility] PAP ACOG PANEL 2: 30 to 65on 11-16-2022 . . Normal [facility] Comment on above: Result Comment: Perf ormed at: WB Performed By: #### 4 [id number] #### [facility] [address] [address] [address] Fadi Meza Age Gdln ACOG Testing 30-65 Normal [facility] Comment on above: Performed By: #### 4 [id number] #### [facility] [address] [address] [address] Fadi Meza DIAGNOSIS: Comment Normal [facility] Comment on above: Result Comment: NEGA TIVE FOR INTRAEPITHELIAL LESION OR MALIGNANCY. Performed at: WB Performed By: #### 4 [id number] #### [facility] [address] [address] [address] Fadi Meza HPV Aptima Negative Normal Negative [facility] Comment on above: Result Comment: This nucleic acid amplification test detects fourteen high-risk HPV types (16,18,31,33,35,39,45,51,52,56,58,59,66,68) without differentiation. Performed at: =G Performed By: #### 4 [id number] #### [facility] [address] [address] [address] Fadi Meza HPV Genotype Reflex Comment Normal [facility] Comment on above: Result Comment: Crit eria not met, HPV Genotype not performed. Performed at: WB Performed By: #### 4 [id number] #### [facility] [address] [place] [address] Dr. Fadi Meza Methodology: Comment Normal [facility] Comment on above: Result Comment: This liquid based ThinPrep(R) pap test was screened with the use of an image guided system. Performed at: WB Performed By: #### 4 [id number] #### [facility] [address] [place] [address] Dr. Fadi Meza Note: Comment Normal [facility] Comment on above: Result Comment: The Pap smear is a screening test designed to aid in the detection of premalignant and malignant conditions of the uterine cervix. It is not a diagnostic procedure and should not be used as the sole means of detecting cervical cancer. Both false-positive and false-negative reports do occur. . Performed at: WB Performed By: #### 4 [id number] #### [facility] [address] [place] [address] Dr. Fadi Meza Performed by: Comment Normal [facility] Comment on above: Result Comment: [place], Living Specialist (ASCP) Performed at: WB Performed By: #### 4 [id number] #### [facility] [address] [place] [address] Dr. Fadi Meza Specimen adequacy: Comment Normal [facility] Comment on above: Result Comment: Sati sfactory for evaluation. Endocervical and/or squamous metaplastic cells (endocervical component) are present. Performed at: WB Performed By: #### 4 [id number] #### [facility] [address] [place] [address] Dr. Fadi Meza CHLAMYDIA/GONOCOCCUS TALAT (SW AB/URINE/PAPon 11-15-2022 Chlamydia trachomatis, TAALT Negative Normal Negative [facility] Comment on above: Performed By: #### C T/NGNA #### [facility] [address] [place] [address] Dr. Fadi Meza Neisseria gonorrhoeae, TALAT Negative Normal Negative [facility] Comment on above: Performed By: #### C T/NGNA #### [facility] [address] [address] [address] Fadi Meza VAGINITIS/VAGINOSIS DNA PROB Kel 11-14-2022 Shannon species Negative Normal Negative [facility] Comment on above: Performed By: #### V AGINT #### [facility] [address] [address] [address] Fadi Meza Gardnerella vaginalis Negative Normal Negative [facility] Comment on above: Performed By: #### V AGINT #### [facility] [address] [address] [address] Fadi Meza Trichomonas vaginalis Negative Normal Negative [facility] Comment on above: Performed By: #### V AGINT #### [facility] [address] [place] [address] Dr. Fadi Meza Covid-19 PCR (CVDTB)on SARS-CoV-2 (COVID-19) RNA TALAT+probe Ql (Unsp spec) Not detected Normal NOT DETECTED [facility] Comment on above: Result Comment: This test is not yet approved or cleared by the [place] FDA. When there are no FDA-approved or cleared tests available, and other criteria are met, FDA can make tests available under an emergency access mechanism called an Emergency Use Authorization (EUA). The EUA for this test is supported by the [place] of Health and Human Service's (HHS's) declaration [...] SARS-CoV-2. Performed By: #### C VDTBH #### [facility] [address] [place] [address] Dr. Fadi Meza US PREG TVon 11-12-2022 [...] MANUEL VEGA Date: 2022-11-12 16:44 Normal [facility] CULTURE URINEon 09-01-2022 CULTURE URINE Culture Observations: LIGHT GROWTH OF MIXED GENITAL SIRIA. NO POTENTIAL PATHOGENS SEEN. Normal [facility] Comment on above: Performed By: #### U RCX #### [facility] [address] [place] [address] Dr. Fadi Meza UA RANDOMon 09-01-2022 Bilirubin Ql (U) Negative Normal NEGATIVE [facility] Comment on above: Performed By: #### U A #### [facility] [address] [place] [address] Dr. Fadi Meza Clarity (U) CLEAR Normal CLEAR [facility] Comment on above: Performed By: #### U A #### [facility] [address] [place] [address] Dr. Fadi Meza Color (U) YELLOW Normal YELLOW [facility] Comment on above: Performed By: #### U A #### [facility] [address] [place] [address] Dr. Fadi Meza Glucose Ql (U) Negative Normal NEGATIVE [facility] Comment on above: Performed By: #### U A #### [facility] [address] [place] [address] Dr. Fadi Meza Hemoglobin Ql (U) Negative Normal NEGATIVE [facility] Comment on above: Performed By: #### U A #### [facility] [address] [place] [address] Dr. Fadi Meza Ketones Ql (U) Negative Normal NEGATIVE [facility] Comment on above: Performed By: #### U A #### [facility] [address] [place] [address] Dr. Fadi Meza LEUKOCYTES Negative Normal NEGATIVE [facility] Comment on above: Performed By: #### U A #### [facility] [address] [place] [address] Dr. Fadi Meza Nitrite Ql (U) Negative Normal NEGATIVE [facility] Comment on above: Performed By: #### U A #### [facility] [address] [place] [address] Dr. Fadi Meza pH (U) 6.0 [pH] Normal 5-9 [facility] Comment on above: Performed By: #### U A #### [facility] [address] [place] [address] Dr. Fadi Meza SPEC GRAVITY 1.025 Normal 1.005-<=1.025 [facility] Comment on above: Performed By: #### U A #### [facility] [address] [place] [address] Dr. Fadi Meza UA PROTEIN Negative Normal NEGATIVE/ TRACE [facility] Comment on above: Performed By: #### U A #### [facility] [address] [place] [address] Dr. Fadi Meza Urobilinogen Qn (U) 0.2 {Shan'U}/dL Normal 0.2 - 1. 0 [facility] Comment on above: Performed By: #### U A #### [facility] [address] [place] [address] Dr. Fadi Meza CULTURE URINEon 08-02-2022 CULTURE [...] Trimethoprim/Sulfame thoxazole >=320 R F Normal [facility] Comment on above: Performed By: #### C VDTB #### [facility] [address] [place] [address] Dr. Fadi Meza UTI (P4 Labs)on 07-05-2022 UTI Report Diagnosis Info Invalid Interpretation Code [facility] Comment on above: Result Comment: Osmani riggs [...] on: 07/04/2022 23:05:19 Performed By: #### 2 [id number] ####[facility] [address] [place] [address] UTI ( Labs)on 07-03-2022 UTI Method of Extraction Voided Normal [facility] Comment on above: Performed By: #### 2 [id number] ####[facility] [address] [place] [address] UTI Number of Jars 1 Invalid Interpretation Code [facility] Comment on above: Performed By: #### 2 [id number] ####[facility] [address] [place] [address] UTI Specimen Urine Normal [facility] Comment on above: Performed By: #### 2 [id number] ####[facility] [address] [place] [address] UTI Type of Service Global Normal [facility] Comment on above: Performed By: #### 2 [id number] ####[facility] [address] [place] [address] Urology Office/Clinic Noteon 06-27-2022 Urology Office/Clinic Note [...] Low estrogen (more content not included)... Normal [facility] Comment on above: Result Comment: Elec tronically Signed By: Jalen Robledo\.br\Date and Time Signed: 06/27/22 00:01 EDT Ambulatory Visit Summaryon 0 06-25-2022 Ambulatory Visit Summary JESSA CHATMAN :1985 Visit Date:06/25/2022 Ambulatory Visit Instructions Your Diagnosis Recurrent UTI Bilateral kidney stones Tests Performed Urnls Dip Stick Auto w/o Microscopy POC [id number] Your Care Team Attending Physician - Jalen [...] Urnls Dip Stick Auto w/o Microscopy POC 46955 (06/25/2022) Bilirubin Urine Dipstick - 1+ Small Blood Urine Dipstick - 3+ Large Glucose Urine Dipstick - Negative Ketones Urine Dipstick - Trace - 5 mg/dl Leukocytes Urine Dipstick - Trace Nitrite Urine Dipstick - Negative Protein Urine Dipstick - 2+ (100 mg/dl) Specific [place] Urine Dipstick - 1.025 Urine Appearance Urine [...] to exami (more content not included)... Normal [facility] Patient Educationon 06-25-20 Patient Education Obstetrics and [...] this condition includes: ? Antibiotic medicine. ? Ekhi-uqu-yfcildp medicines to treat discomfort. ? Drinking enough [...] these instructions at home: Medicines ? Take howm-pzk-phmskgo and prescription medicines only as told by [...] This in (more content not included)... Normal [facility] Coding Summary.on 04-23-2022 Coding Summary. CD:[id number] Gh0bWw+PGhlYWQ+PE1FV BZoF64dcNWlvW6TX2jXD V8ALTAQYXPQPP3NTL8zp LH7KAbvJ0JvvpAp CpqcnNLqUO08RHp3CML3 xKfiWRvovX9qjCGqV0b8 OrOcUI90fG63KCpeFMUz UeC9WzZiqfrfhVIb Y8xhJtMbeODhPek+PHRh YmxlIHdpZHRoPScxMDAl YeCslEcyKL2hMt1cZHNr LWNvbGxhcHNlOiBj l7vjENKzOYdbQE5iwRst K1SdvKY4UAYws3r6Tj35 dHI+QCAnINR5cUfdBWzo y691JuXaj5qbBKG2 oZKkOAmsBCA9D71wl9K8 UVZjEUQdHZK9dOU5rW4l fIpaaoptB0VjnJDmBgC5 VOK4nXMxgS4cgOui fakmyW9lInk+S72URV4R WBQAGD3DAjw6T9ZvWxrn dHI+UK91WUTjRE13jJIn dPHqf6zxoNa4ClTp ENDwVDR7jAjgSBiuk2Fk LMIbO66crBFkp2C5QORa xXwigGEmJdDocJZ5uH9c NJzdhakvg5jzyfbn Vqxpq9adix01mU68A15w DQxmEHBzFHH1NHCkUNJg hCegbm3wlU1zFy7+IDxj o5jxi2tybGo8OfRr VCSlypOppIaoAQS1m1Zx Fj16E5IufMnhv5TkHms6 io09nRAvy2E4zTV9JVyo ZVTquU7bHIzgAjE0 BRHaLnSxoL42eEGfISyi No2fwDtnqUkrPI1nGQEn yhvaWMXndJ1pPQIuePZi lEmwYK2sYSDcpbpc i851GmGqKBH8FQKncUNg A1JubS3iJqYuFHZwRODn O4TjgYLwTUzaK551UAzo CiZ2KOHuymDzV7Pt APByzBgtKlD6h2S1Nl9X u0LlyqipBEU7YUzkXPT5 YiT3ViNxKtS2X4OpZpa0 CEJmmGteMG8qY7Fm CBAvmwtuvwyldEE4KZLa SPWybT38nMPvUYweBx3g w2N9u104IZKeRHQcgL71 Rj9leHqgIVAjxYMQ eJ5nzlmme6pdbyuoGsNl CDTkFSw6ZHw2OOPhiXod QsPeHXR5ShZ2PSN3hUZn fE4vqXvryqsmoI6j Oyc+L85urB7mSBP6SMS1 bcpbVNGrrdCgSF84DN12 G8McRcdidYXvuSC+PGRp bfTtrZemLP1iTkYy w7glg9CzNQjxB1TlLIEz AHwmHna2MMHwUEG5uKB8 bS7uSUFpLPlsu1O5kIY6 L4EcicOlpl3fb7xd JUNaXXpxY56leZVmm3G1 HMTojGB3TYLfwNkqCnMn iL74Sok+ICVneIrfy7Vo Optnq1ucf5vsgJy2 IjMwJSIgdmFsaWduPSJ0 z2VdTh43G32xARirWHIi KDWfTZTiZXPfiPowti0x pS0dKd7+PGNvbCB3 bQN2pH6zNWSkUhT6PWtn U461YrTmcEMsBzdib4yt c4fobVz5AgAjWMPbkhCk jDjrUXH7z1YcCr88 D60gQXmiKKSlAZLgEBXb ARTdeCkgip7sfW7zMi4+ QD0wc3mlse58gH04tSV+ LIWhAPV1oWhxGMtb QSIlnE8fBLlmBgC2EMYg QyHpmZ47lNTeXCsuYa8p gOesiVryIT8ePPWwvevc z872SgDft4moCTUk nXVxQJlzVXX6N32kq7F2 BPJsUHVnPZE8nQF1nR4i bGlnbjogbGVmdDsgdmVy hZwwNLjiZJaoC867 IHRvcDsnPlBhdGllbnQg ZzLeSGn2R1FvRcp0LNQo jXyxKN6rsPNyNWcjTo4m bJyldNcuNT7qQRWq ezhya576BiJwl9qrENLf bNUiJHauDSJ7F81kt0S0 PFYiKRZsSXI2cEY3bA2k bGlnbjogbGVmdDsg rtEbhKnrWWkvWXsfC743 IHRvcDsnPkJpcnRoIERh fZK4QO54LY38xJTsi8G0 bAF4L9ZwPJQtyauo cfyagJN3VRWqCLNbjY69 Ld1wdNkxQf3gZSYhWOL8 UDRrzBHoT4PoaV7vGbMs UFJqETPmR8NoxGUo FXacL108HZjkMkC4PLDy eaVuD7VnBZOwrMucKuR5 z9E0Xj6XB8X5ZQ42AT41 kFByw9P0bON1S5No QUExacmmrztwdVC0HAZn CFPbpV88Sd5etFjiQi4n UZYaNIN4GKUrcTOhV0Du hZ3nNnPkNCNyBUSj B6BbwWOxQFhqK426RCix EpH6NKCqniYyP6NfWCMn rIwaRnO4m6K0Xv4QCFz2 AL57XA95dDPqm6X0 nQN0F3ZoERTdrnoiduqb hIG1HRXoPXSqvV62Gm2v fRluFd5mHOAkLMS5PFOw pUJmP0PnbP5eNzWx OFCiWIOoE6CqaYYkGYkb R676DOmcTqP4HPLrdqZp E1MjFCTziDjbAbY1k8I4 Km2LHZGgTK38JUS5 vXX5SP04JU10D3OqZtjf dGFibGU+PHRhYmxlIHdp ZHRoPScxMDAlJyBzdHls SB9dHh9pOSLkOBOr sOebzVLjTwHfm3maGGJz ZUrbQR7vtOgtQ8ZqcBY6 VUYge3e3Oa80X55wN2Ww dXA+HENkxWS0cKZ2 oS7mEzVhScH6PSgzD655 JlVbdXRgLcbuy8gng0jm zDq0PiT6CRCflrXizXgt JBF2p7GuYm35B93e IHdpZHRoPSIxNSUiIHZh uMyzvo2uiM6nZk3+PGNv yVS2pEM7fL6tWtIaCxY6 LGdaH172KiXprJJy Fhcmv6fdw1odcUa4EuAi PZAiufWicTuhGGX9v7Pr Fv81Q2JikJwmp4RfIvd0 ra45jLFui1E3nHK2 G5KiEWXxxeyukXQcpHof VK7mVVPzwmsnCLJaiM4v CKMdX1p0DlNrVeI1EPsm N4BzpmB9HWOieEWj FDqpSFH0Z57hp8D0ASHb IMZiFFP9bBI0mL9zfGer bjogbGVmdDsgdmVydGlj HZbcFIpwA167ZAYq xGjlIWNxnT3hBTEmrKJg mHfcSW5vMBGesqjvVh0O KXNLFGGNQM9HOLzgwLI+ RYSoLTA2xAtxHQju SQZavN5uPOKpP6o5RdBg UbR3MHqgY9QuJFMcmdnq Yy03mJ9jYuPzQaV6FHpr Q8MkvxR4ICYltWDg TCriBMB0Z21eq9U8LDJx KUNoZUJ8jVH9zJ2bvBan bjogbGVmdDsgdmVydGlj OTcrSCjsD570WEEj qQhdMpM8VbR3WcF6MAU8 A0ReFnm0OMNucLmcVD1t eNHzQLnsWm0loPdtrCzv NE3wGEMgmoqrJUYl uH3uCBAkqCLxqDikMQ5t HHDuaksdb499IdIaTOY8 OHUygHDcR2MknT7pNrJt ULTnXJSzZ6ZzfXNy TNldM167ZCrnHgR1AXCi zbQjW1EsAVMszCsvOmO1 m7U7Yc2nFMEODWVgatjf dGQ+MSViHOG7gWsv YOefQAJblU0iUBEuS3q9 ZxPwYeG6DFxwG6ReEPKm vjsuSu45kN7cHqSnJbU2 OUqoC9QqvhH2UAFp tMBsRMnpOYL0T47ny1Y9 OJIbUUPgNPD3wRQ0pW3t bGlnbjogbGVmdDsgdmVy hZfnHJgzHZgqE103 IHRvcDsnPkZlbWFsZTwv dGQ+CJQmEAC8tYenDWds KDYttE2nWVGzR1f7MkJi XrX0HIgyM0BnZIMq sxroXl41qH0bGbBeCtB2 TJfqB7GiocH2ZDDccRNv QAinRZE0J06zq9G6ZXMt VGRdPOM2xED2gY3a bGlnbjogbGVmdDsgdmVy iKzhHSsjAAheW242JMLv bMlvAtriPrXWcy9mSD5u ZjwvdGQ+UG37ms87 A5HbVsstHcx2KDGuNQL6 eTZ3cR5kEETkNSwtc9F1 eFP2F2RkrmYiqr8uh9un QNTlGOsgK10bbFKm b6K7CTLthKF0NSMxrOer AzJyfC87Geg+PGNvbGdy l8LfKblnr4qjt0zsgDd9 IjMwJSIgdmFsaWdu EAN7o0LgTv94A84rGNhr ZHRoPSIzMCUiIHZhbGln fw2vjE3hOx7+PGNvbCB3 jFR7cC5xMvQcReQ0 ECmpS460YbAbeMNgUfso b4ysa0mbxNj5YrRiNIEf gtXewQyjQCU7b1IdNv95 G8NwcFjbv9XtEoj0 dj06zCKkf4O4zXK5D8Ch ZUIbdifjvWHoeXimNE6h FBFzjqrtNEQqoD7oWTHz W1k5RuRtVhW4CEhh S0ZqltV0OADkgFLnFRHh zKXMcY8pldsgz0eemtqu VpHwADWyUFx1SNe2JTMb mYqqOxOcRBF5EuT0 HSN0gKZmqA2gpLwrtvpo pR7vMxz+JOf8k4fltSGt DV6qaRX3CU52AU83xWJm z3L5gEF8K9YeIPWr yqloywovxIU0OGCwZRKc jQ49Kz6hcKrfKg0qWZMv HZU7YKPzdDDaN2FooS3l ZdDgQOUoJWUaG2Sn hAOiYGqpR274OXsyIvM3 FWCrofEoS8NpSVLnqJed ZkZ2g8E4Ie4FWT92WH38 PC72nQSlb8Z8jDG6 G4JaDNBzhhhcijiblYD6 ILFcVDPcxT70Yn6pnInd Qn5hHMSzKCX3PEHywEMb E4MmeP4mUqBnVINv AOCsB5DldJLbKEugY971 QYadYoZ2GGOnzmKuN7Dm GWEhtDmnEqN9e3H3Lj1K Vr44NC25GP20uHDb s9S1jQR9O9GmZJWbocgk gxqvmQC9AQHmCLQojC14 De9xrWmnDf5wKEEgGCI3 EBTwkPJnL8JwpB4n SeKvMONbROPwO1XsdSEo ICdpB559QGecNhS3UJQs nlYwG3GxLINwfHuaMbN0 c4T7Df1GOFhomnu7 B6XaBpvesKF+UD59PYMi IO40bHCkrJVhl2ckvNc4 RjDcNRZpLZB9rJtdFWey r3AwWYInS41hnCTo c2U6 (more content not included)... Normal [facility] Reminders 04-18-2022 Reminders - From: Lupis Turner To: EU - Clinical; Sent: 04/15/2022 15:02:18 EDT Show up: 04/18/2022 08:00:00 EDT Subject: Urine culture Reminder/Recall Urine culture done on 04/15/22 addressed by ANNITA Smalls [facility] C Urineon 04-17-2022 Bacteria identified Cx Nom [...] Locations R1: This test was performed at: [facility], [address] [place] [address], [facility] , , [facility] Comment on above: Performed By: #### 2 [id number] ####[facility] [address] [place] [address] Coding Summary.on 03-13-2022 Coding Summary. CD:[id number] Gh0bWw+PGhlYWQ+PE1FV WByY28liOJcxH9TV1eVV C9ZIGJOXGBVWX5FMN2qv SH0UGeyL3XfplXa FpjvhISzIJ42IXt9UDS1 nEadSPnurZ8vjMWfZ2p7 RqDnBB47iV72EZjjDTIu XtH8ZnUapuykjENs I6dgAgSqxXMnUdp+PHRh YmxlIHdpZHRoPScxMDAl XoCwvQttZG5nCp4iTVYq LWNvbGxhcHNlOiBj x0gzKFQtUOkqVI5xyCne U1SbrXO9JQEiu6g5Fc28 dHI+SWWxRAY5rCimDCcv r962PlZdj5vpLVC1 nWImEOlwFFB2I00ia2W6 TUWfLCZyKSA8eMT7gD1w lTokrpdwE8UviPXeTeP1 JSC8oKHzvZ2qrHjm bmmdiR8sFoa+I98BAK6H YCOWPQ1AWic9B1BlRkkx dHI+ZS54UKWyUV66zCBp fJBlv2dlcRl0SmTa BZRxHRJ1wOldMVkej5Ni CYXpU57yyOKvt5O5HXAp kXcuyDGiFiQxkAZ9zN0p HDsvxbvdq0mujifr Jfdzg7rqne87mN60P16k JQgyWASyZGJ7OOVbRBGy jUwxpp4czF8oGk6+IDxj c3urh2psvDc6AdYh VAJutmXfbPjwWPB7v3Yr Qn64S6ZtvFlyw6ZdXcp9 qh60zVNoj9L8nGI2CLyv BYHrlP5kMEmlLqI0 BCHfUwDgfK24tZKxASsp Hn0qySxuhTrxAH5nMPNr wytfRSKnoV4nNPMzoSRv kRmhDV1pDRLuopso m059AqOcVSY6ISBxlQYd O0RjyZ5zKkYhHIImSLRg Q5DxbBHcAJifN204PXgi MuW0AQRtarDeZ1Kd UQIuuWloYfI1b9O0Pt7Q w9HejnopDIT7MLrzIBY4 UxT4IoLwGxA9I4RzQcq9 GTIjmGwjDL1oT8Nl ILTnrczhximwdSB7LIHb MONcpY50jBPuUOgjRm0m s8J6m053SDGfZUUfhB10 Ay3shGquYKTtoGJK tL7tczkue7qjmoplHqYp RRNyZPk1UCj8XICmaFdd KkLyHZF8XgY4QEV5nASx mE7otTgzgbcsdF9b Oyc+C76icV9tFRP9HQQ5 tiulLXNytmVxLE39KV95 Z6JqIttkmEAlvLY+PGRp ncKrxChnZD4aYcDw g5wso4HlFKvgW6ZyYUYf DXcaBpc7GLAkQQV1mFY4 eU8jGQUjBFsia7M5mGF1 R5LtsxMuqu1ll2hv RUGbTPrgY48rtVEtn7E5 JXNucMJ4GYPooOqyVuLa oC09Lne+TQVepQhjv0Ap Shbuo2dyu3iknUk8 IjMwJSIgdmFsaWduPSJ0 k4TlGj49I34gHUrvWRYq ZWGwFBItPZHalNjlet2h uQ2aZy8+PGNvbCB3 jQQ2wR2eCLWoEjI7IQec X580UgUlhEOrBwaej7ot l2yudJf3JjRiXWGkzoPc hEqmGGT4q4AfTj87 Q74qLAldWOJzRMOmDSSj EZEdjLoyhn0ulX2lPc6+ QJ2fk3phzn92aC23lWP+ EEXcWQE1qDkyCDhl XAWaaP7xARbgAhP8YNRb IoLheY53yWSnDQaiTz0b aZvgwQhkDN3iTRXfxtpr x886NhVlz8trKYUb sTHxWNpuIWK4R27hx7Y0 YINxMQFpLYT1yRW4cF6w bGlnbjogbGVmdDsgdmVy qZicFVypRYtpA717 IHRvcDsnPlBhdGllbnQg UyGcPQn7I2WhDvk0RGHb cCojAL2hbDQbSNmuAf1h jRkjkIheQW9xFSUz fhfmq709NoJix8uzXNVv jKLuLZemGGS0C37zs6U6 YJUaXOXoCAD7rKL4uW7u bGlnbjogbGVmdDsg toCwwPyjURjwNRlmC585 IHRvcDsnPkJpcnRoIERh ySG5BH29FB26oPMye3N2 dUT1K4EzNWQeuckf fojrvNH9KQCwBDSjkS99 Du4snGpgPx8yZASiWEX3 HCFijGToJ4YzuK1wXdSc IVDtGQPlB5EfdVLz FAbmJ271VXkaNzJ6NOTn chDjH3ZbAKShpEfxFeS7 n7W9Hk4LZ0R9UO26VV83 rVInq6U6oTQ7N2Nq KWGajiicufigrOV2YPGz CGNzgW50Ie9neBcaMn9m FSQeGWA3YKLtaNJdF2Qx vA3zHkQnQGWeCFRz P8JfzMJiXVitK148LYef RmM8EPEzfmLcK1RyFSWh eZbaOpS5a0X6Mm7HKSc2 FB26CT41tZHwj2T0 pWC6A1UySPPpoeerslcx uPE7MPEiJVIhyY97Bn6g aJskFg2kVJWaGRC8XAPx fLPsH9OtsF6fVyKj ACSlXALmF2VznJQhAHex I146VJzsEmQ1CPWenvTg O1EzHTYgrBsyUwE1b3K2 Tx7CHAFrZQ95LAR1 xWL7LB17ZT35H4ArCwih dGFibGU+PHRhYmxlIHdp ZHRoPScxMDAlJyBzdHls SO6gHv2mSMYvGODl jHmwjMJmUbDve1zpQXCr RNwtXD4bwYbmC7FuyJN6 HOCyn2g9Lp72S27jY8La dXA+DCVboLS2nUI8 xN0wKiNpEzF9VOzqQ833 LiDehUTtKiwez1sqx4gg eYb7AoM8NBDkmlUzgEwd OSW2w3EqMv12F63i IHdpZHRoPSIxNSUiIHZh cPecoi6jqI7iDi0+PGNv xVG2ySK3sC2pGoFxIbK4 GAtpR079MbVsnSGg Snlzm9hrd1lmuIs9JwBn BEAtveOsrFpkOZQ1m8Fc Pn96V6RbcBxio4EoMno4 by73iESld5G0bKF2 E3WwHBYnliubwSDblAoe UZ9rNVJoytowWWSqlX1d CEJeB0e3KnRfCdK2DLpb R2EwltI5ASSfqIHw QJvfWDE6P45vw1F5ASGc DFVcIVS4iHV9sY6loTbd bjogbGVmdDsgdmVydGlj JWrbKXoxM884QLGk pAinIHWqsR0fBEKisCPr rMtqKN8hLSZadnhaJp8B EEKHTMLOMK8DZZbfnVF+ ZTUxBUT0oEmwGDzu IKImqL6nPPPbA5f6VuBg BgI6DClyM4RjWOAratnu Ys92fV0jQdQhRmW1VBtz D6EbrlK4NYVtbBFr CGiiKRG8U30qu9D7FEKw JGTyFAY5yES7jS9nmZnl bjogbGVmdDsgdmVydGlj WMswESzsN421PVUa bBlxTmX0ToS6HeG5QXZ6 K2HiTuk2TUPshExnZW8o uMGrGMntLc9cfTrmcYbh AZ4mYPXfhaddGAZx kW8bMQBbtDMdnTfbPX6f LYYhfmqwn814CmZyPCO0 OWJtsPVfA2IqsA7pLmOt MWXxFQVdQ7ZykVJq HLazM728DQqsBqJ9KNTy oqAyZ0ApJWFtoXakWrV0 t4Y4Hr2hHPZBBVEvkdkn dGQ+HQGwYRK6gQpu UMpyFHQkxA8vVZAdS3f3 UcQyBiU2WNoeV8MeYBAx vdulSr18iO0vEoTdLlH3 KNtpL9TjiqT9TJLm vMViFBkdKGD9A62nf8J7 WAZdTTHwDSD2bUN3rU9a bGlnbjogbGVmdDsgdmVy jKngSMpcPZcaF314 IHRvcDsnPkZlbWFsZTwv dGQ+HWGmGVQ8cUevVObu UPNvqN8sRMMhY7h6QaMt YwM8KBuzX9BxAILn glsmJy90bO4jWuEwRmD8 TUhrD3MpgvP8RDJvbZLx FBmxRTG6K56qu2B8QCXe NGZmGEQ2rXD2wH6v bGlnbjogbGVmdDsgdmVy jRgfTQcoFLzrV799OWDx kMjiOjgwDuBGju5dEX8o ZjwvdGQ+AA34bl02 J3SvQrcaZaz1UMGjXNV0 zCT7bC4iHATxUCyih4G6 nES8U0NbloGujj1az2vm RHDwTJtyP19uyGMe y9H1OZOfrRO7MTMyfOjl XcAcoT86Wjr+PGNvbGdy l2EdHjbmv9wmd2hzvVt1 IjMwJSIgdmFsaWdu IHB0e7KxFe71M34kKNyn ZHRoPSIzMCUiIHZhbGln qg7aqS1hOn2+PGNvbCB3 jBW3wT8zDaSoVxF2 QWirI749WmMmhWTgPxzv p2ekp9xxoBs9SfJeTWDb kaWkjHjwWTT0f3FpRd73 K1MahQeoo5IrIrh2 wp89sMYfe4A6pGF2C8Go QJNizmbsoYRdvPvoSK0n ZGXqvzojFFDkqR5zHSPb U6q4QtOgBlI4JUty X2TriaP8JBPovQJiJHKk zHKArB8iauasl5qbjgqm HvOuUTFiKQe4AMl2BOTn vMnfYfIjQPS5KtZ7 MSD6rTNmtG4lcRokviuk pI7nXfc+SFb0i6qncREz LY4jyXT1QH41GF62zVVa g5S7gQM8M9QpWWOx vwjiqdaoeYN0UKTaURTk aV07Qh6biCdvRf2xHGFj JCN9CUZchMEkI0OziE5r CcMhXDTnJYNsJ0Af nFOaPWiqM564VIugEwS5 RTSkrkKoM4DpSHZshYlb FaR7r3T0Qi3NXK29XP21 AF23wSSdd1T5dYE6 N8PkYOOveafqcndemRF8 RVGnIMTbnV49Gx5iwLdo Fv5sLRRqCBJ3LIGuvQZm J6SnpF9bOyLuTUCa XCIlC9PvvKKkAOszV684 ZLlpDnP9QBAqenJxF6Sv JWApxMzvOqT2m3L9Te3W Qx40TS54VO71kOFi a7H7wGY4M0MxZILgcpqe fqujsSE7CXReEFNhfB01 Cj3wdWruEs6hYJRsKPN7 LLUlrRQkW9FrnZ8j WwJiPNUsPAMgV1TlzPEt DMpfW780ONegRsO9TDIb kxMaY5EsBPFzfPzxNgW4 z4R1Hw4AGVbqcmh5 K3XeSgzdgVR+UA72PKYz EU41eNFoiSIvp2chlQp8 PxIjYVNsSPV4aDqzQXcr v2XpQMMkE90vuZPc c2U6 (more content not included)... Normal [facility] C Urineon 03-08-2022 Bacteria identified Cx Nom [...] Locations R1: This test was performed at: [facility], [address] [place] [address], [address] , , [facility] Comment on above: Performed By: #### 2 [id number] ####[facility] [address] [place] [address] Reminderson 03-06-2022 Reminders - From: Lupis Turner To: EU - Clinical; Sent: 03/06/2022 14:52:59 EDT Show up: 03/09/2022 14:52:00 EDT Subject: UA micro, CX Reminder/Recall UA micro/culture done on 03/06/22 Normal [facility] URINALYSISOrdered By: Nazario [place]yle on 03-06-2022 Bacteria [...] PM) Normal Negative [facility] UA Auto SS Twain.plasma/Lithiu m.RBC (Bld) [Mass ratio] 0-3 /HPF Normal [...] [Mass/Vol] Negative (03/06/22 2:52 PM) Normal Negative [facility] UA Auto SS Specific gravity (U) [Rel density] 1.015 *NA* (03/06/22 2:52 PM) Invalid Interpretation Code 1.005 - 1.030 [facility] UA Auto SS UA Spec Desc Random Urine (03/06/22 2:52 PM) Normal [facility] UA Auto SS Urobilinogen Qn (U) 0.0448575 {Shan'U}/dL Normal 0.0 - 1.0 EU/dL [facility] UA Auto SS WBC Auto Ql (U) Negative (03/06/22 2:52 PM) Normal Negative [facility] UA Auto SS WBC LM.HPF (Urine sed) [#/Area] 6-15 /HPF Invalid Interpretation Code 0-5/HPF [facility] UA Auto SS Urinalysison 03-06-2022 Bacteria LM Ql (Urine sed) 2+ /HPF Abnormal Trace [facility] Comment on above: Performed By: #### 1 [id number] ####[facility] [address] [place] [address] Bilirubin Ql (U) Negative Normal Negative [facility] Comment on above: Performed By: #### 1 [id number] ####[facility] [address] [place] [address] Clarity (U) SL CLOUDY Abnormal Clear [facility] Comment on above: Performed By: #### 1 [id number] ####[facility] [address] [place] [address] Color (U) YELLOW Normal Yellow [facility] Comment on above: Performed By: #### 1 [id number] ####[address] [address] Epithelial cells.squamous LM.HPF (Urine sed) [#/Area] 3-4 Normal 0-2 [facility] Comment on above: Performed By: #### 1 [id number] ####[facility] [address] [place] [address] Glucose Test strip (U) [Mass/Vol] Negative Normal Negative [facility] Comment on above: Performed By: #### 1 [id number] ####[address] [place] [address] Hemoglobin Ql (U) Negative Normal Negative [facility] Comment on above: Performed By: #### 1 [id number] ####[address] [address] Ketones (U) [Mass/Vol] Negative Normal Negative [facility] Comment on above: Performed By: #### 1 [id number] ####[address] [address] Twain.plasma/Lithiu m.RBC (Bld) [Mass ratio] 0-3 Normal 0-3 [facility] Comment on above: Performed By: #### 1 [id number] ####[address] [address] Mucus Ql (Urine sed) TRACE Normal Fish [facility] Comment on above: Performed By: #### 1 [id number] ####[address] [address] Nitrite Ql (U) Negative Normal Negative [facility] Comment on above: Performed By: #### 1 [id number] ####[address] [address] pH (U) 7.5 [pH] Invalid Interpretation Code 5.0-9.0 [facility] Comment on above: Performed By: #### 1 [id number] ####[address] [address] Protein (U) [Mass/Vol] Negative Normal Negative [facility] Comment on above: Performed By: #### 1 [id number] ####[address] [address] Specific gravity (U) [Rel density] 1.015 Invalid Interpretation Code 1.005-1.030 [facility] Comment on above: Performed By: #### 1 [id number] ####[address] [address] Type of Urine collection method Random Urine Normal [facility] Comment on above: Performed By: #### 1 [id number] ####[facility] [address] [place] [address] Urobilinogen Qn (U) 0.2 {Shan'U}/dL Normal 0.0-1.0 [facility] Comment on above: Performed By: #### 1 [id number] ####[facility] [address] [place] [address] WBC Auto Ql (U) Negative Normal Negative [facility] Comment on above: Performed By: #### 1 [id number] ####[facility] [address] [place] [address] WBC LM.HPF (Urine sed) [#/Area] 6-15 Abnormal 0-5 [facility] Comment on above: Performed By: #### 1 [id number] ####[facility] [address] [place] [address] Consent for Procedure/Surger yon 02-26-2022 Consent for Procedure/Surgery [id number] 9#1.00CD:127 Normal [facility] RAD - MISCon 02-26-2022 RAD - MISC [id number] 8#1.00CD:127 Normal [facility] RAD - Ultrasound Reporton RAD - Ultrasound Report [id number] #1.00CD:127 Normal [facility] Ambulatory Visit Summaryon 0 02-25-2022 Ambulatory Visit [...] Kwadwo SAEZ MD Where: [facility] Flo Smalls [facility] Patient Educationon 02-26-20 Patient Education Urology Kidney [...] these instructions at home: Medicines ? Take eutp-xkh-czqbgdd and prescription medicines only as told by [...] 04/13/2009 Document Revised: 03/13/2020 Document Reviewed: 03/13/2020 [employer] Patient Education ? 2019 [employer]. [facility] Urology Office/Clinic Noteon 02-25-2022 Urology Office/Clinic Note [...] urine The Urethra was dilated to: 18-30_ German with sounds. urethra bled. dry. Removal: Cystoscope [...] EDT [facility] [address] [place] [address]- Additional Instructions: Patient Education Kidney Stones, Xbca-uk-Qqmm Devonte Nickerson personally scribed for Dr. Saez [...] Grandparent. Diagnostic Results Tests Reviewed: Reviewed UA. [facility] Comment on above: Result Comment: Elec tronically Signed By: Kwadwo SAEZ MD R\.br\Date and Time Signed: 02/25/22 15:21 EDT\.br\Electronically Co-Signed By: Devonte Echeverria\.br\Date and Time Co-Signed: 02/25/22 15:19 EDT Pre-Certification Formon Pre-Certification Form [id number] 0#1.00CD:127 [facility] Reminderson 02-10-2022 Reminders - From: Kristyn Echeverria MA To: EU - Clinical; Sent: 02/04/2022 16:03:36 EDT Show up: 02/08/2022 16:03:00 EDT Subject: Urine Culture Reminder/Recall Urine culture Pt is currently . ANNITA addressed [facility] C Urineon 02-07-2022 Bacteria identified Cx Nom [...] Locations R1: This test was performed at: [facility], [address] [place] [address], [address] , , Normal [facility] Comment on above: Performed By: #### 2 [id number] #### [facility] [address] [place] [address] Performed By: #### 2 [id number] ####[facility] [address] [place] [address] Coding Summary.on 02-07-2022 Coding Summary. CD:[id number] Gh0bWw+PGhlYWQ+PE1FV DIuO59efTPalQ2ZB8bVR M2QRCVYRJKTJL7DZO4bm YK0MJmgM1ScqaWw MojysWLhSQ00UDl8HPJ1 fVcfILkobG5fdOWnP7w9 TyBdCG17mK33VGvyQKCz AlS3IdSbpxbpzZDg J9snVqDwcJEaSzu+PHRh YmxlIHdpZHRoPScxMDAl JqQsnXrqJF0qOw2dHXJd LWNvbGxhcHNlOiBj k9hpHGAjGLexYA2xzDnv I3XhkZS2UPSwo0w6Bz70 dHI+UXZmLFU3iGxkOXak o682DuRsq7faLLW6 dBHwRUpjPAJ9U63ik0I4 WGRzMOWaSYI0pSH1vY4d cAakjenbC5CnsXHiRqJ8 YYD1uUJtcL2tbLfu dwamgE5mQgh+H40ZUZ1S LFKBQI9RWez7R0VhFmgq dHI+NL91XDMaEX98hCWh mDAod3cpbBb2EhHc LUQdWDI4nCbkRMeda6Ul VJSnD86xyDOvh5Y2SQEh oAjynSXpLwGumQF3sO4w BAczkdlxj4aqwoom Ybzpv5xplz41oA37Y93f IAdfNTFgXAO0CRSgZBXx hMiojk9leD9nVg6+IDxj q7nkj0skrIv3KaAe DDMgwtUheFehWWW4z5Vg Ka22L4EmlRthv3VtDon0 mt47bFLgx5K0rAD5PUaw YRZrpF1rVYgvOgB1 VXKtXtTpjI52yYJtOGos Uc5leNxtfIzcGT9qZQAo nzbfIOQvpS0bAZRedWDs tNycHQ9vSRLpphua u826NaLvHYJ2CYXdoOCf Z8OqzQ7dVdQuVSDuMSPe E5NykNTeFRgtU898ALea SyR2HOBsmyPoS8Pe CVOylBxiPbK5i8D1Wo4S c6JepektGYB1IYbnNZDq FjOmElMdQbG5G4AbVul4 NZVkhFsoNI8nF6Ih LVRmcnvwpwasfKZ4ZKYp QFDeoL93sCUhWPokEk0g q2O3a786YROeJPIqtQ39 Mx6lvPeaPHRfpVIV rN4rnllpv6gwkeeyQxQu MWXuPDf6HJk9CZFroVwc QdTeQKB2AnL4JXW2mEBe dV2qzNahxvfdjZ7a Oyc+R12eoS3gDLV0KIB7 vhwpSBFuviWgWD59YX57 J5BuMygziIInaRN+PGRp hlKnwSyrIM8rQgBq z7xjo6XlPGfmG2PeGBKh NPhbOte6AKSqKKG5nKM8 oV2qGNSeNQzyo3B6sEZ5 K5YzfdMjzw1jc2he XDYjEMfvO83gmBWbk4X2 NPCnhZS3WZOzzNxrVlTh dL74Nre+EUUvvFqvq6Nf Ufeuw6waw2vthTy6 IjMwJSIgdmFsaWduPSJ0 s3TuBr07N93hTIqpRDMv WYYqHCZaSAEebXtsok8z uJ4qMd0+PGNvbCB3 gMV8iD3cVNCySeA0FTgq D276KzTuaAUgMycwq2nf w2fldVp8EgNfQXOftkFf rYpnGHW9b6LvYx08 S17eUTtgACFkRAUhYQPa JFNufMnukp4djO6qUm1+ VJ3ky1gzxz94kN41oBX+ RGBsBTW0wVluHYhr XEOntQ2uJJqmKwT1UMYv HlPnqV30vHTfYUvgDm4n lOcvzEnyOJ4cMBPnxkhj v202TpCtn4quKQDj zOAoSWquXPN8P82wf4M0 DVPmHQLwWBI3kOG2vG8d bGlnbjogbGVmdDsgdmVy fKzqWPmvHJhxU631 IHRvcDsnPlBhdGllbnQg MbKjFXw6Q2HnLei6PRWp hLbnWY2rbUSvOYvaMo8e zNasyQpiRD2eKZKz jsgnv372XnAro5efNORc zGCcERfaWLH0N40xf2P8 GFYuVFQtOWV5pTM8aC2t bGlnbjogbGVmdDsg ucObhUhiCLxhLJdjY708 IHRvcDsnPkJpcnRoIERh lAH3GF31UB91xAPkq3E0 jUV6X3JrBSRswnbb cbognGU6CCYjWHNlwV74 Vy4wtVtnMd1zORKlAPM1 ZNQsrBTyW5OroB2hXmSa AHIsPWAbL5DyuLWx QJmbD768RLyqOtY4LMKe pcQuF1MgTRFblDdcQpM4 l1I6Fr5YJ1E7UK58YG55 wEQdg9G4hMF1X8Ns YEGwtfrhkfrcrKM2YZBc OSDgzN77Xm2fiGxyDl5f LKKeLAB5QWKtfPGeI6Wl xJ8oEfXoBLHrEGDq O8YjnHEaLRgbU820ZNjh FbE5BJCmjeMpV8CrPBWh xRpsLiM7o7B2En0MUNx4 YV22SZ69hUEog1M9 eYJ3L0SuVKZwtyudrisv cHS2IUYkJZPttT49Kd8a aHheRu9qGVBxGTL0LAUn rVPeQ4WxaR9fKqDb SEOuCSObH8XrgJVcNIeq X133JHxvDcW4NNGyczBt Q2VuJFEvnRopOtW2w3V1 Ox3KSHYrHX36QQQ4 pKM3YI23AI20R9KyFcee dGFibGU+PHRhYmxlIHdp ZHRoPScxMDAlJyBzdHls XX8nWw8uMNPxKBZh kCaemEXiWlTqp0hrOTFs CHfsON2ajNxcB5DtrFX6 KNZoj4c3Kk43D14tC0Ye dXA+YTBzzDP1zTM3 eX9pVsNmCjD6FBksR595 UsRhlMZxWmkmv6unp0ik bUu5BgT7ZQJshjGqjDdj UNQ5o6EzJr10I34e IHdpZHRoPSIxNSUiIHZh uOxlud1qjK7kDl7+PGNv zLK1hTC6iE6tJjQqUeG8 QYpsI332JcEvuNFx Awqvk7hzt8dyvWw4NlRa KVSadyDqrIlzYUW3u0Qp Dv89K6VulUety4IpRgj0 jv67wRMje1R3wVZ4 V5BhNMNlwlcdeJQbbInu YP4lAHPfdlosKYHjcI5o XEKlM7e5MbKgWtZ1DJyi J3IhmzF0YTSwbBPe TPjjPZN5P02xw4S3UBGx TGYlTTD6dZQ4gU5tqOvy bjogbGVmdDsgdmVydGlj ZLqkJPbbM583XKMc pTxlESWxgO0fYTQgfSVp iHebOY7iRJKsoviwVp9U DTDAODJOHE1MENligNY+ HTLtPLL9rZzaJGhw IBAsqJ3qVYCoJ7d8XaCl EhX0WDwsU7IyVTErkikz Pb65yI1uOdCdOsD2DLbq L1KjhnW5SOXhiBAb IJnjKKU9S59tm5E3RRJp ALZxSQJ0fGO3dP8tlSlh bjogbGVmdDsgdmVydGlj FRlzPCzmP549UIHl nRgjZoD5SaR0MvW5XUX7 O7FhVxz2ORXhlClcMK6t vTIlRIqzDh3toBedzAeq ME1yTBOwqlxmNZMe mC8fIHKafPMmqMrlXD5s AFFsdxdwo375MyGyICY0 IODubKEmY0TusA1jMbOl CAOrCNZfT9XwpQJw OVpiH219HGtxAbY3ERCg vaMwL1LcIMYugEomPoL0 c9Z1Ya1sFHRUPJHkzpih dGQ+RAUuZDC3xJvu AAueFCIcoM7nMNVeC5c1 EbPbAcR7CVqlP8ChPIMr zonzFt67lN5rGdXhUxH9 OHspV1OxgqB3CMPb mCUbAFolCSQ0A97in0E8 OEQkVXQqPPP7wKK1iZ1i bGlnbjogbGVmdDsgdmVy fDpdKRzaEIljG773 IHRvcDsnPkZlbWFsZTwv dGQ+IIRlQLI5yDtiHPjb ZOLzlS8wSTNcM6a3ZvTi AoA9SDjrM2RrQOUn fjjxYh20zR4xQmVbOgO6 XXlcP5DsawV5QVBmbSZb WCyxUGG4L35pl5I5ZJKl SGTdUTF0iCE3pS6f bGlnbjogbGVmdDsgdmVy uDvtDPrbIApvM941XVVk iUnmFilsLdPEcw6oHL9k ZjwvdGQ+GN74em97 R0AgUltcWfv0SJWbSFJ5 iHC5eM8zRUVtTIsfy6V6 iDS1T6XbvgLljr8hd7wl ERHeEVfdX55rqLXy c5U4RFTzyPP7ORYbsSmc QdYgnN02Opx+PGNvbGdy c0YhDkqbz6vgk4fgxOx7 IjMwJSIgdmFsaWdu JBB6m8AvVe88O29gDAss ZHRoPSIzMCUiIHZhbGln as4kiN7fUr3+PGNvbCB3 tIL8uW3jXqSyFoB9 WUyxE268AjPqvPCjCffl q7ebr0jxpIh0WhCsVYEn ihLloMhhVXN0m9AxYr36 S4HgzHqcu4DjSta4 ih02mRUoi7V9fKI2H2Gl DRVtvrnixDPucLlqLQ5u LMYfyjqgGSPyzZ0sXSXe B1m8NiNoQiG1EFjf L3WpsmG4RTDhvMGjEYAd kVBCgB0gvfdtk0zvxzul SuMhEXJjSQy0EDj9TLFs dWeiMvOhQAA4NcP1 DWL4qQWeyJ2flBlzqwny mR8dFai+LZv1j4heaPRg RJ8mkWV8JP24KZ24tRFn d7X9zBR0A7XsDVHe oxhwtqhveDB1LUOgFOCe dE28Zv6kmBwkCx7fCDCp JES7DKHqhLCmE1NqfE9v UqTdPJTlHEBiO6Bf nZNpRVzlJ751TUujBkK0 ZFSyfzEiV0EdEVUjnCxp GhN8g1I0Nw0LCB70LY28 VE18lISju4F7sSM8 H9AbMNBrggedlnuuuUX8 HSXuVZUzwH97Lv6fbXwp Mc6iAMHhNQY8UVUpkKAg Y4SdxG3lJsBfUZWw RZOpC5JmoGNxNGvqZ693 OVnnEfW2UFPjbkGwW2Ds XQKbpRazWlP1x2L8Pl7X Xn58JA10EL76mEUv i9H3nSH0M5PiQEHjdpeb elgfeMP0RLEcVQTjmI14 Gp7wdBqpYw3lQCPoDCJ2 PPOfyJLnJ9FctY9e WrOeYWQzNCPdV6GujOKa LWhhQ988IMjtYrS9EPXt txBpG7LjQXJmlXyzOqC3 t0P7Wc1LPNakxqu3 P4RkUqcrtMF+DH36KFHt PG92rHQmxJSsq4kfzTv0 FhApNUWzJGT5pYjjKJfp t0MkXDSbB45bpVIf c2U6 (more content not included)... Normal [facility] US renal BIon 02-07-2022 US renal BI [facility] [place] [address] Ultrasound Report Signed Patient: Jessa Chatman MR#: [id number] 9 : 1985 Acct:[id number] Age/Sex: 36 / F ADM Date: 02/07/22 Loc: Room: Type: [facility] Attending Dr: Saida Abad PA-C Ordering [...] DO 02/07/22 1522 Signed By: 02/07/22 1524 [facility] XR KUBon 02-07-2022 XR KUB [facility] [place] [address] [place] [address] XRay Report Signed Patient: Jessa Chatman MR#: [id number] 9 : 1985 Acct:[id number] Age/Sex: 36 / F ADM Date: 02/07/22 Loc: Room: Type: [facility] Attending Dr: Saida Abad PA-C Ordering [...] Mark Stark M.D.02/07/2022 3:13 PM Dictation Location: [facility] Transcribed By: KARI 02/07/22 1513 Dictated By: Mark Stark DO 02/07/22 151 Signed By: 02/07/22 151 [facility] Patient Educationon 02-05-20 Patient Education Pharmacology [...] Trouble breathi (more content not included)... Normal [facility] Urology Office/Clinic Noteon 02-04-2022 Urology Office/Clinic Note Chief Complaint referred for recurrent UTI. HPI Staff Jessa is here today as a new patient referred by Herve [employer]UME SPECIALIST for recurrent UTI.Started Cleocin 300mg on 12/24/21 [...] on Cleocin x 7d in Dec per [employer]ATOR. pt has not noticed any connection with [...] baths & hot tubs, avoid any scented [employer]ACHINE OPERATOR products, urinate after sexual activity, etc) PVR [...] E&M of New Patient Moderate 45-59 Min 20164 Urnls Dip Stick Auto w/o Microscopy POC 41544 US Renal XR Abdomen 1 View Orders: [...] Protein Urine Dipstick: Negative (02/04/22 14:41:00) Specific [place] Urine Dipstick: 1.025 (02/04/22 14:41:00) Urine Appearance Urine Dipstick: (more content not included)... Normal [facility] Comment on above: Result Comment: Elec tronically Signed By: SAIDA ABAD PA-C.br\Date and Time Signed: 02/04/22 16:12 EDT Vital Signs Date Time Vital Sign Value Performing Clinician Facility 06-25-2022 09:14-0400 Blood Pressure Location Jalen Mora [facility] [place] 06-25-2022 09:14-0400 Diastolic blood pressure 86 mm[Hg] Jalen Mora [facility] [place] 06-25-2022 09:14-0400 Heart rate 77 /min Jalen Mora [facility] [place] 06-25-2022 09:14-0400 Systolic blood pressure 130 mm[Hg] Jalen Mora [facility] [place] 06-18-2022 10:45-0400 Body height 162.56 cm Devin Lam Other [facility] Other 06-18-2022 10:45-0400 Body mass index (BMI) [Ratio] 28.49 kg/m2 Devin Lam Other [facility] Other 06-18-2022 10:45-0400 Body weight 75.3 kg Devin Lam Other [facility] Other 06-18-2022 10:45-0400 Diastolic blood pressure 76 mm[Hg] Devin Lam Other [facility] Other 06-18-2022 10:45-0400 Respiratory rate 16 /min Devin Lam Other [facility] Other 06-18-2022 10:45-0400 SaO2% (BldA) [Mass fraction] 99 % Devin Lma Other [facility] Other 06-18-2022 10:45-0400 Systolic blood pressure 118 mm[Hg] Devin Lam Other [facility] Other 05-13-2022 16:00-0400 Body height 162.56 cm Devin Lam Other [facility] Other 05-13-2022 16:00-0400 Body mass index (BMI) [Ratio] 29.73 kg/m2 Devin Lam Other [facility] Other 05-13-2022 16:00-0400 Body weight 78.56 kg Devin Lam Other [facility] Other 05-13-2022 16:00-0400 Diastolic blood pressure 68 mm[Hg] Devin Lam Other [facility] Other 05-13-2022 16:00-0400 Respiratory rate 16 /min Devin Lam Other [facility] Other 05-13-2022 16:00-0400 SaO2% (BldA) [Mass fraction] 97 % Devin Lam Other [facility] Other 05-13-2022 16:00-0400 Systolic blood pressure 114 mm[Hg] Devin Lam Other [facility] Other 04-16-2022 10:30-0400 Body height 162.56 cm Devin Lam Other [facility] Other 04-16-2022 10:30-0400 Body mass index (BMI) [Ratio] 30.72 kg/m2 Devin Lam Other [facility] Other 04-16-2022 10:30-0400 Body weight 81.19 kg Devin Lam Other [facility] Other 04-16-2022 10:30-0400 Diastolic blood pressure 80 mm[Hg] Devin Lam Other [facility] Other 04-16-2022 10:30-0400 Respiratory rate 16 /min Devin Lam Other [facility] Other 04-16-2022 10:30-0400 SaO2% (BldA) [Mass fraction] 99 % Devin Lam Other [facility] Other 04-16-2022 10:30-0400 Systolic blood pressure 130 mm[Hg] Devin Lam Other [facility] Other Encounters Encounter Date Encounter Type Care Provider Facility Start: 10-28-2023 End: 10-28-2023 ambulatory MOUNA LUIS M Not Available Start: 10-23-2023 End: [facility] Start: 10-08-2023 End: 10-08-2023 ambulatory MOUNA LUIS M Not Available Start: 09-23-2023 End: 09-23-2023 ambulatory MOUNA ANGEL Not Available Start: 04-15-2023 End: 04-15-2023 ambulatory Devinkye Arroyoelias Other [facility] Other Start: 04-15-2023 Telephone encounter Devin Lam [facility] Start: 01-19-2023 End: 01-19-2023 ambulatory Devin Lam Other [facility] Other Start: 01-19-2023 Telephone encounter Devin Lam [facility] Start: 12-19-2022 End: 01-07-[address] MOUNA ANGEL . Facility:[facility] Start: 12-05-2022 End: 12-06-[address] MOUNA ANGEL . Facility:[facility] Start: 11-19-2022 End: 11-19-[address] MOUNA ANGEL . Facility:[facility] Start: 11-16-2022 Encounter for preprocedural laboratory examination DR MOUNA ANGEL . [facility] Start: 11-13-2022 End: 11-14-[address] MOUNA [...] encounter procedure Dasia Addison [facility] Start: 06-25-2022 End: 06-25-2022 Patient encounter procedure Jalen Mora [facility] Start: 06-18-2022 End: 06-18-2022 ambulatory Devin Genaro Other [facility] Other Start: 06-18-2022 Office outpatient vi sit 15 minutes Devin Cruzs [facility] Start: 05-13-2022 End: 05-13-2022 ambulatory Devin Cruzs Other [facility] Other Start: 05-13-2022 Office outpatient vi sit 15 minutes Devin Cruzs [facility] Start: 04-16-2022 End: 04-16-2022 ambulatory Devinkye Arroyos Other [facility] Other Start: 04-16-2022 Office outpatient vi sit 25 minutes Devin Cruzs [facility] Start: 04-15-2022 End: 04-15-2022 Lab Drop off SAIDA ABAD [facility] Start: 04-15-2022 End: 04-15-2022 Patient encounter procedure Kwadwo SAEZ [facility] Start: 03-06-2022 End: 03-06-2022 Lab Drop off Kwadwo SAEZ [facility] Start: 03-06-2022 End: 03-06-2022 Patient encounter procedure Ravinder MCCAULEY [facility] Start: 02-04-2022 End: 02-04-2022 Lab Drop off SAIDA ABAD [facility] Procedures Date Procedure Procedure Detail Performing Clinician Start: 11-09-2013 Colonoscopy and biop sy of colon Kwadwo SAEZ Start: 11-09-1989 History of tonsillectomy Kwadwo SAEZ Start: 11-09-1989 Tonsillectomy SAIDA ABAD Start: 11-09-1989 Tympanotomy SAIDA WAKEFIELD Immunizations Immunization Date Immunization Notes Care Provider Fa cility 11-09-2020 SARS-CoV-2 mRNA (tozinameran 5y-11y) vaccine Jalen Mora [facility] Comment on above: Result Comment: 2 [facility] 03-10-2015 tetanus toxoid, reduced diphtheria toxoid, and acellular pertussis vaccine, adsorbed Kwadwo SAEZ [facility] Comment on above: Reason for Medicatio n: Other (see comment) NEGATED: Highlighted row has not occurred!02-19-2019 influenza, seasonal, injectable Patient Objection Devin Lam Other [facility] Other Payers Date Payer Category Payer Unknown [id number] 2.16.84 [id number] 1985 Unknown [id number] 2.16.84 [id number] 1986 Unknown [id number] 2.16.84 [id number] 1986 Unknown [id number] 2.16.84 [id number] 1986 Unknown [id number] 2.16.84 [id number] 1986 Unknown [id number] 2.16.84 [id number] 1986 Unknown [id number] 2.16.84 [id number] 1986 Unknown [id number] 2.16.84 [id number] 1986 Unknown [id number] 2.16.840 .[id number] 1986 Unknown [id number] 2.16.840 .[id number] 1986 Unknown [id number] 2.16.840 .[id number] 1959 Unknown [id number] 2.16. [id number] 1959 Unknown [id number] Social History Date Type Detail Facility Start: 02-04-2022 End: 02-25-2022 Tobacco smoking status Never smoked tobacco (finding) [facility] Tobacco smoking status Never [facility] Sex Assigned At Female [facility] Functional Status Date Assessment Result Facility 06-25-2022 Functional Status N/A [facility] Clinical Notes 02-04-2022 to 10-23-2023 Note Date & Type Note Facility 10-23-2023 Note F/U with OB and mate rnal medicine as scheduled [facility] 10-23-2023 Note UTP CARDIOLOGY PROGR ESS NOTE HPI: Jessa Chatman is a 38 y.o. female here for tachycardia during Patient here per Dr. Angel for tachycardia in . She is currently 32w5d along. RESUME SPECIALIST started her on metoprolol tartrate 25mg daily [...] scheduled RTC 2-3 months or as needed [facility] 10-23-2023 Note Patient here per Dr. Angel for tachycardia in . She is currently 32w5d along. RESUME SPECIALIST started her on metoprolol tartrate 25mg daily a few weeks ago, which as helped with palpitations. HR gets as high as 147 at rest sometimes. This issue went away after the of her last baby. Review of Systems Cardiovascular: Positive for dyspnea on exertion. Neurological: Positive for light-headedness. All other systems reviewed and are negative. [facility] 04-15-2023 Evaluation note Encounter Date Diagnosis Assessment Notes Apr, Spontaneous rupture of tympanic membrane of right ear concurrent with and due to acute suppurative otitis media (ICD-10 - H66.011) [facility] Other 01-11-2023 NoteOPERATIVE NOTE OPERATION DATE: 11/19/2022 PROCEDURE: Suction D AND C. PREOPERATIVE DIAGNOSIS: Missed first trimester. POSTOPERATIVE DIAGNOSIS: Missed first trimester. ANESTHESIA: General. SURGEON: Mouna Angel D.O. HOOKER OPERATOR: None. FINDINGS: Products of conception. SPECIMEN: Products [...] products of conception were removed using a 9-German suction curette. Excellent hemostasis was noted. The patient tolerated the procedure well. Sponge, lap, and needle counts were correct x 2. All instruments were then removed from the patient's vagina. The patient was taken to the Recovery Room in stable condition. ??[id number] Evaluation + Plan note Diagnostic Tests Pending * UTI ([facility]) 07/03/22 [facility] 08-17-2022 Hospital Discharge instructions Patient Education 06/25/2022 [...] Follow these instructions at home: Medicines Take zdos-sjl-mgvixge and prescription medicines only as told by [...] 10/26/2006 Document Revised: 03/13/2020 Document Reviewed: 03/13/2020 [employer] Patient Education 2019 [employer]. 06/25/2022 09:59:21 Urinary Tract Infection, Adult Urinary [...] Treatment for this condition includes: Antibiotic medicine. Kmnc-qpa-mzkhgpx medicines to treat discomfort. Drinking enough water [...] Follow these instructions at home: Medicines Take zanv-hai-nxnhibj and prescription medicines only as told by [...] 08/05/2006 Document Revised: 10/13/2019 Document Reviewed: 05/05/2019 [employer] Patient Education 2020 [employer]. [facility] 08-10-2022 Evaluation note* Encounter Date Diagnosis Assessment [...] that she can go off it completely. [facility] Other 07-05-2022 Evaluation note* Encounter Date Diagnosis [...] calf. I recommened a consult with a live truck operator. Patient would like to hold off on the referral for now. [facility] Other 06-08-2022 Evaluation note* Encounter Date Diagnosis [...] or any other dysrhythmias. She voices understanding [facility] Other 03-29-2022 Evaluation + Plan note Diagnostic Tests Pending * [facility] Future App[facility]ments Appointment Date:07/02/2022 02:45:00 PM Scheduled Provider:Kwadwo SAEZ MD Location:[facility] Appointment Type:URO Office Visit [facility] Evaluation + Plan note Future Appointments Appointment Date:07/02/2022 02:45:00 PM Scheduled Provider:Kwadwo SAEZ MD Location:[facility] Appointment Type:URO Office Visit Diagnostic Tests Pending * Urine Culture [facility] Future Appointments Appointment Date:07/02/2022 02:45:00 PM Scheduled Provider:Kwadwo SAEZ MD Location:[facility] Appointment Type:URO Office Visit Diagnostic Tests Pending * Urine [facility] InformationN[facility] [employer] Other History general Narrative - Reported* Type Description Date Medical History Anxiety Hospitalization History childbirth [facility] [employer] Other Hospital course Narrative No data available for this section [facility] No data available for this section [facility] No data available for this section [facility] Summary Purpose Family History No Family [...] (H66.011) Referral Organization [facility] Referring Provider First Name Devin Referring Provider Last Name Genaro Referring Provider Specialty Family Prac brittanie Referred Organization [facility] Referred Provider Aldo Bolanos Referred Address ,[place], [place],[address] Referred Provider Specialty Otolaryngolo gy Referral Priority Routine General Notes Fore, Higinio M 023 12:56:47 PM >Received today. [facility] request us to send the referral and they will call and schedule patient. Referral was fax Clinical Notes Office [phone] Additional Source Comments INFORMATION SOURCE (unrecogn ized section and content) DATE CREATED AUTHOR 02/26/2022 [facility] DATE CREATED AUTHOR AUTHOR'S ORGANIZ ATION 07/04/2022 [facility] DATE CREATED AUTHOR AUTHOR'S ORGANIZ ATION 07/05/2022 [facility] DATE CREATED AUTHOR AUTHOR'S ORGANIZ ATION 01/21/2023 [facility] DATE CREATED AUTHOR AUTHOR'S ORGANIZ ATION 10/25/2023 [facility] DATE CREATED AUTHOR AUTHOR'S ORGANIZ ATION 10/29/2023 [facility] dical Specialists EPIC REASON FOR VISIT (unrecogniz ed section and content) weight management/ UTI4 week follow up-weight mgmt.1 month Follow up weight managementClinicalClinical Care Team (unrecognized sect ion and content) Personnel Name: DEVIN LAM DO Address: [address] [place] [address] Personnel Name: DEVIN LAM DO Address: [address] [place] [address] FOR RECORDS PERTAINING TO PATIENTS WHO ARE [...] BE BASED ON THE PRIMARY CLINICAL RECORDS. [facility]. provides no warranty or guarantee of the accuracy or completeness of information in this document.
--- NOTE | 2023-11-10 16:35 | US_ITS ---
[address] [address] Patient Name: BONILLA KUMAR MRN: [id number] date: 1985 Sex: F Assigned Patient Location: [facility] Current Patient Location: Accession/Order Number: [id number] Exam Date: 11/10/2023 16:55 Report Date: 11/11/2023 07:14 At the request of: MOUNA ASENCIO Procedure: US OB BPP w non-stress EXAMINATION: US OB BPP w non-stress HISTORY: MULTIGRAVIDA OF ADVANCED MATERNAL AGE O09.523 COMPARISON: No relevant comparison available. TECHNIQUE: Ultrasound biophysical profile was performed in the radiology department. FINDINGS: BREATHING MOVEMENTS: 2.0 GROSS BODY MOVEMENTS: 2.0 TONE: 2.0 QUALITATIVE AMNIOTIC FLUID VOLUME: 2.0 PRESENTATION: CEPHALIC HEART RATE: 129.2 bpm H.B./min AMNIOTIC FLUID VOLUME: 20.6 cm cm GESTATIONAL AGE: 35 weeks 1 days CONCLUSION: Total biophysical profile score: 8.0 Electronically authenticated by: ERROL VELA Date: 11/11/2023 07:14
--- NOTE | 2023-11-10 16:36 | US_ITS ---
[address] [address] Patient Name: BONILLA KUMAR MRN: [id number] date: 1985 Sex: F Assigned Patient Location: [facility] Current Patient Location: Accession/Order Number: [id number] Exam Date: 11/10/2023 16:55 Report Date: 11/11/2023 07:24 At the request of: MOUNA ASENCIO Procedure: US OB umbilical artery EXAMINATION: US OB umbilical artery HISTORY: MULTIGRAVIDA OF ADVANCED MATERNAL AGE O09.523 COMPARISON: No relevant comparison available. TECHNIQUE: Duplex Doppler evaluation of the umbilical arteries. FINDINGS: position: Cephalic presentation, longitudinal lie Amniotic fluid volume: 20.6 cm. Largest fluid pocket 6.0 cm Heart rate: 129 bpm Proximal umbilical artery PSV/EDV: 140/31 cm/s. Resistive index 0.78. Ratio: 4.5 Mid umbilical artery PSV/EDV: 114/44 cm/s. Resistive index 0.60. Ratio 2.6 Distal umbilical artery PSV/EDV: 56/26 cm/s. Resistive index 0.53. Ratio 2.1 Forward flow identified throughout diastole Gestational age: 35 weeks 1 day US/US OB umbilical artery IMPRESSION: Elevated systolic to diastolic ratios and elevated resistive index with forward flow in diastole. Class I Umbilical Artery: Class 0 = Normal umbilical artery blood velocity Class I = increased RI or PI, but still forward flow in diastole Class II = Absent end diastolic flow (AEDF) Class III = Reversal of end diastolic flow (REDF) Resistive Index (RI)<1 Systolic/Diastolic ratio (S:D): An S:D ratio of 2-3 after 34 wks is normal Systolic/Diastolic ratio (S:D): Age 16: 3.01 for the 10th percentile, 4.25 for the 50th percentile, 6.07 for the 90th percentile Age 20: 3.16 for the 10th percentile, 4.04 for the 50th percentile, 5.24 for the 90th percentile Age 24: 2.70 for the 10th percentile, 3.50 for the 50th percentile, 4.75 for the 90th percentile Age 28: 2.41 for the 10th percentile, 3.02 for the 50th percentile, 3.97 for the 90th percentile Age 30: 2.43 for the 10th percentile, 3.04 for the 50th percentile, 3.80 for the 90th percentile Age 32: 2.27 for the 10th percentile, 2.73 for the 50th percentile, 3.57 for the 90th percentile Age 34: 2.08 for the 10th percentile, 2.52 for the 50th percentile, 3.41 for the 90th percentile Age 36: 1.96 for the 10th percentile, 2.35 for the 50th percentile, 3.15 for the 90th percentile Age 38: 1.89 for the 10th percentile, 2.24 for the 50th percentile, 3.10 for the 90th percentile Age 40: 1.88 for the 10th percentile, 2.22 for the 50th percentile, 2.68 for the 90th percentile Age 41: 1.93 for the 10th percentile, 2.21 for the 50th percentile, 2.55 for the 90th percentile Age 42: 1.91 for the 10th percentile, 2.51 for the 50th percentile, 3.21 for the 90th percentile Uteroplacental Artery: Resistive Index (RI): Normal=<0.55 High Resistance=Bilateral notches (after 26 wks) and RI>0.55. Unilateral notches (after 26 wks) and RI>0.65 Systolic/Diastolic ratio (S:D) = 2-3 is normal after 32 weeks. Electronically authenticated by: ERROL VELA Date: 11/11/2023 07:24
[2023-11-10 17:22] VITALS: BP 117/68; PULSE 99
== END 2023-11-10 17:45 | disposition home or self-care (01) ==
LOC: US 07:45 → FBC 16:33
PROVIDERS: Visit Provider Obstetrics & Gynecology
DX: O09.523 Supervision of elderly multigravida, third trimester (principal); Z3A.35 35 weeks gestation of pregnancy
CPT/HCPCS: 76818; 76820

== ENCOUNTER 2023-11-13 06:53 | Outpatient (OUT) | payer BC, SELFPAY ==
--- OUTSIDE RECORDS SUMMARY | 2023-11-13 06:56 | XMS_ITS | CCD ---
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 Name Role Phone DEVIN LAM Primary Care [...] Translations: [acetaminophen-hy drocodone] Drug Allergy Nausea (finding) [facility] (13 sources) Banana Extract; Translations: [Banana] Drug Allergy 09-10-20 20 Itching (finding) [facility] (8 sources) Melon; Translations: [melon] Drug allergy 09-10-20 Itching (finding) [facility] (5 sources) Melon Propensity to adverse reactions Unknown Float: [place] Other (1 source) Acetaminophen / HYDROcodone Drug Allergy 09-10-20 20 [facility] (1 source) Acetaminophen / HYDROcodone; Translations: [HYDROCODONE-ACET AMINOPHEN] Drug Allergy 04-10-20 21 [facility] Repository Medications Current Medications Medication [...] day(s), # 90 cap(s), Refills(s) 0, Pharmacy: [facility] [id number] [facility], 162, cm, 02/25/22 14:21:00 EDT, [...] procedure, # 2 cap(s), Refills(s) 0, Pharmacy: [facility] [facility] [id number] [facility], 162, cm, 02/04/22 14:57:00 EDT, Height/Length Dosing, 75, kg, 02/04/22 14:57:00 EDT, Weight Dosing Start Date: 02/04/22 Status: Ordered citalopram 20 mg oral tablet (10 sources) Serotonin Reuptake Inhibitor Start: 02-04-2022 take 1 mg by mouth once daily CeleXA 20 mg Tab mg tab(s), Oral, Daily, Refills(s) 0 Start Date: 02/04/22 Status: Ordered take 0.5 tablet by m [facility] every twenty-four hours Citalopram Hydrobromide 20 MG 0.5 tablet Orally Once a day Active Docusate (9 sources) Start: 02-04-2022 take 1 mg by mouth twice daily Dulcolax Stool Softener mg, Oral, BID, Refills(s) 0 Start Date: 02/04/22 Status: Ordered Start: 03-09-2015 take 1 capsule by mo [facility] twice daily as needed for constipation Colace [...] Status: Ordered take 1 capsule by mo [facility] once daily at bedtime Macrobid 100 MG [...] 10 day(s), 20 tab(s), Refill(s) 0, [facility] [id number] [facility], 162, cm, 02/25/22 14:21:00 EDT, [...] Range Facility Office Visiton 10-23-2023 Follow-up visit [id number] Jessa Chatman 1985 F Date Provider Department Center 10/23/2023 Abelino-ARACELI MCKENZIE [facility] No family history on file Level of Service:87919 [place] OFFICE/OUTPATIENT ESTABLISHED MOD MDM 30-39 MIN Normal [facility] PROGRESSon 10-23-2023 Beta HCG ( [...] sugar. She voiced understanding of risks. Normal [facility] PREG QUANT HCGon 12-19-2022 HCG QUANT 5 mIU/mL Normal [facility] Comment on above: Performed By: #### P REGQNT #### [facility] [address] [place] [address] Dr. Fadi Meza HCG RANGE SEE BELOW Normal [facility] Comment on above: Result Comment: 5-50 0.2-1 WEEK 50-500 1-2 WEEKS 100-5,000 2-3 WEEKS 500-10,000 3-4 WEEKS 1,000-50,000 4-5 WEEKS 10,000-100,000 5-6 WEEKS 15,000-200,000 6-8 WEEKS 10,000-100,000 2-3 MONTHS Performed By: #### P REGQNT #### [facility] [address] [place] [address] Dr. Fadi Meza PREG QUANT HCGon 12-05-2022 HCG QUANT 43 mIU/mL Normal [facility] Comment on above: Performed By: #### P REGQNT #### [facility] [address] [place] [address] Dr. Fadi Meza HCG RANGE SEE BELOW Normal [facility] Comment on above: Result Comment: 5-50 0.2-1 WEEK 50-500 1-2 WEEKS 100-5,000 2-3 WEEKS 500-10,000 3-4 WEEKS 1,000-50,000 4-5 WEEKS 10,000-100,000 5-6 WEEKS 15,000-200,000 6-8 WEEKS 10,000-100,000 2-3 MONTHS Performed By: #### P REGQNT #### [facility] [address] [place] [address] Dr. Fadi Meza CBC AUTO DIFFon 11-19-2022 BASO # 0.0 103/ul Normal 0.0-0.1 [facility] Comment on above: Performed By: #### C VDTBH #### [facility] [address] [place] [address] Dr. Fadi Meza Basophils/100 WBC (Bld) 0.7 % Normal 0.2-2.0 [facility] Comment on above: Performed By: #### C VDTBH #### [facility] [address] [place] [address] Dr. Fadi Meza EO # 0.1 103/ul Normal 0.0-0.7 [facility] Comment on above: Performed By: #### C VDTBH #### [facility] [address] [place] [address] Dr. Fadi Meza Eosinophils/100 WBC (Bld) 2.1 % Normal 0.9-7.0 [facility] Comment on above: Performed By: #### C VDTBH #### [facility] [address] [place] [address] Dr. Fadi Meza Erythrocyte distribution width (RBC) [Ratio] 13.7 % Normal 11.0-15.0 [facility] Comment on above: Performed By: #### C VDTBH #### [facility] [address] [place] [address] Dr. Fadi Meza Hematocrit (Bld) [Volume fraction] 36.9 % Normal 36.0-48.0 [facility] Comment on above: Performed By: #### C VDTBH #### [facility] [address] [place] [address] Dr. Fadi Meza Hemoglobin (Bld) [Mass/Vol] 11.8 g/dL Critically low 12.0-16.0 [facility] Comment on above: Performed By: #### C VDTBH #### [facility] [address] [place] [address] Dr. Fadi Meza IG # 0.01 10e3/ul Normal 0.00-0.03 [facility] Comment on above: Performed By: #### C VDTBH #### [facility] [address] [place] [address] Dr. Fadi Meza IG % 0.2 % Normal 0.0-0.5 [facility] Comment on above: Performed By: #### C VDTBH #### [facility] [address] [place] [address] Dr. Fadi Meza LYMPH # 1.3 103/ul Normal 1.2-3.8 [facility] Comment on above: Performed By: #### C VDTBH #### [facility] [address] [place] [address] Dr. Fadi Meza Lymphocytes/100 WBC (Bld) 29.3 % Normal 20.5-60.0 [facility] Comment on above: Performed By: #### C VDTBH #### [facility] [address] [place] [address] Dr. Fadi Meza MANUAL DIFF REQ NO Normal [facility] Comment on above: Performed By: #### C VDTBH #### [facility] [address] [place] [address] Dr. Fadi Meza MCH (RBC) [Entitic mass] 28.4 pg Normal 26.7-34.0 [facility] Comment on above: Performed By: #### C VDTBH #### [facility] [address] [place] [address] Dr. Fadi Meza MCHC (RBC) [Mass/Vol] 32.0 g/dL Normal 29.9-35.2 [facility] Comment on above: Performed By: #### C VDTBH #### [facility] [address] [place] [address] Dr. Fadi Meza MCV (RBC) [Entitic vol] 88.9 fL Normal 81.0-99.0 [facility] Comment on above: Performed By: #### C VDTBH #### [facility] [address] [place] [address] Dr. Fadi Meza MONO # 0.5 103/ul Normal 0.3-0.8 [facility] Comment on above: Performed By: #### C VDTBH #### [facility] [address] [place] [address] Dr. Fadi Meza Monocytes/100 WBC (Bld) 10.6 % Normal 1.7-12.0 [facility] Comment on above: Performed By: #### C VDTBH #### [facility] [address] [place] [address] Dr. Fadi Meza NEUT # 2.5 103/ul Normal 1.4-6.5 [facility] Comment on above: Performed By: #### C VDTBH #### [facility] [address] [address] [address] Fadi Meza Neutrophils/100 WBC (Bld) 57.1 % Normal 43.0-75.0 [facility] Comment on above: Performed By: #### C VDTBH #### [facility] [address] [address] [address] Fadi Meza Platelet mean volume (Bld) [Entitic vol] 9.4 fL Critically low 9.5-13.5 [facility] Comment on above: Performed By: #### C VDTBH #### [facility] [address] [place] [address] Dr. Fadi Meza PLT 210 103/ul Normal 150-450 [facility] Comment on above: Performed By: #### C VDTBH #### [facility] [address] [place] [address] Dr. Fadi Meza RBC 4.15 106/ul Critically low 4.20-5.40 [facility] Comment on above: Performed By: #### C VDTBH #### [facility] [address] [place] [address] Dr. Fadi Meza WBC 4.3 103/ul Normal 4.0-11.0 [facility] Comment on above: Performed By: #### C VDTBH #### [facility] [address] [place] [address] Dr. Fadi Meza PREG QUANT HCGon 11-19-2022 HCG QUANT 19837 mIU/mL Normal [facility] Comment on above: Performed By: #### P REGQNT #### [facility] [address] [place] [address] Dr. Fadi Meza HCG RANGE SEE BELOW Normal [facility] Comment on above: Result Comment: 5-50 0.2-1 WEEK 50-500 1-2 WEEKS 100-5,000 2-3 WEEKS 500-10,000 3-4 WEEKS 1,000-50,000 4-5 WEEKS 10,000-100,000 5-6 WEEKS 15,000-200,000 6-8 WEEKS 10,000-100,000 2-3 MONTHS Performed By: #### P REGQNT #### [facility] [address] [address] [address] Fadi Meza US PREG <14 WKSon 11-19-2022 US PREG <14 WKS Obstetrical ultrasound, 1st trimester CLINICAL: Evaluate prior to scheduled DANDC. TECHNIQUE: Transabdominal and transvaginal obstetrical ultrasound was performed. FINDINGS: Comparison: Ultrasound 11/12/2022 There is a single intrauterine fetus. [place]-rump length is 1.81 cm, correlating with gestational age 8 weeks 3 days. No heart tones are detected. IMPRESSION: 1. Single intrauterine nonviable gestation. No heart tones detected, and no growth since previous ultrasound 11/12/2022. Electronically authenticated by: RUCHI FRANK Date: 2022-11-19 13:17 Normal [facility] PAP ACOG PANEL 2: 30 to 65on 11-16-2022 . . Normal [facility] Comment on above: Result Comment: Perf ormed at: WB Performed By: #### 4 [id number] #### [facility] [address] [address] [address] Fadi Meza Age Gdln ACOG Testing 30-65 Normal [facility] Comment on above: Performed By: #### 4 [id number] #### [facility] [address] [address] [address] Fadi Meza DIAGNOSIS: Comment Normal [facility] Comment on above: Result Comment: NEGA TIVE FOR INTRAEPITHELIAL LESION OR MALIGNANCY. Performed at: WB Performed By: #### 4 [id number] #### [facility] [address] [address] [address] Fadi Meza HPV Aptima Negative Normal Negative [facility] Comment on above: Result Comment: This nucleic acid amplification test detects fourteen high-risk HPV types (16,18,31,33,35,39,45,51,52,56,58,59,66,68) without differentiation. Performed at: =G Performed By: #### 4 [id number] #### [facility] [address] [address] [address] Fadi Meza HPV Genotype Reflex Comment Normal [facility] Comment on above: Result Comment: Crit eria not met, HPV Genotype not performed. Performed at: WB Performed By: #### 4 [id number] #### [facility] [address] [place] [address] Dr. Fadi Meza Methodology: Comment Normal [facility] Comment on above: Result Comment: This liquid based ThinPrep(R) pap test was screened with the use of an image guided system. Performed at: WB Performed By: #### 4 [id number] #### [facility] [address] [place] [address] Dr. Fadi Meza Note: Comment Normal [facility] Comment on above: Result Comment: The Pap smear is a screening test designed to aid in the detection of premalignant and malignant conditions of the uterine cervix. It is not a diagnostic procedure and should not be used as the sole means of detecting cervical cancer. Both false-positive and false-negative reports do occur. . Performed at: WB Performed By: #### 4 [id number] #### [facility] [address] [place] [address] Dr. Fadi Meza Performed by: Comment Normal [facility] Comment on above: Result Comment: [place], [employer] Video Graphics Designer (ASCP) Performed at: WB Performed By: #### 4 [id number] #### [facility] [address] [place] [address] Dr. Fadi Meza Specimen adequacy: Comment Normal [facility] Comment on above: Result Comment: Sati sfactory for evaluation. Endocervical and/or squamous metaplastic cells (endocervical component) are present. Performed at: WB Performed By: #### 4 [id number] #### [facility] [address] [place] [address] Dr. Fadi Meza CHLAMYDIA/GONOCOCCUS TALAT (SW AB/URINE/PAPon 11-15-2022 Chlamydia trachomatis, TALAT Negative Normal Negative [facility] Comment on above: Performed By: #### C T/NGNA #### [facility] [address] [place] [address] Dr. Fadi Meza Neisseria gonorrhoeae, TALAT Negative Normal Negative [facility] Comment on above: Performed By: #### C T/NGNA #### [facility] [address] [address] [address] Fadi Meza VAGINITIS/VAGINOSIS DNA PROB Kel 11-14-2022 Shannon species Negative Normal Negative [facility] Comment on above: Performed By: #### V AGINT #### [facility] [address] [address] [address] Fadi Meza Gardnerella vaginalis Negative Normal Negative [facility] Comment on above: Performed By: #### V AGINT #### [facility] [address] [address] [address] Fadi Meza Trichomonas vaginalis Negative Normal Negative [facility] Comment on above: Performed By: #### V AGINT #### [facility] [address] [place] [address] Dr. Fadi Meza Covid-19 PCR (CVDTB)on SARS-CoV-2 (COVID-19) RNA TALAT+probe Ql (Unsp spec) Not detected Normal NOT DETECTED [facility] Comment on above: Result Comment: This test is not yet approved or cleared by the [place] FDA. When there are no FDA-approved or cleared tests available, and other criteria are met, FDA can make tests available under an emergency access mechanism called an Emergency Use Authorization (EUA). The EUA for this test is supported by the [place] of Health and Human Service's (HHS's) declaration [...] SARS-CoV-2. Performed By: #### C VDTBH #### [facility] [address] [place] [address] Dr. Fadi Meza US PREG TVon 11-12-2022 [...] MANUEL [place] Date: 2022-11-12 16:44 Normal [facility] CULTURE URINEon 09-01-2022 CULTURE URINE Culture Observations: LIGHT GROWTH OF MIXED GENITAL SIRIA. NO POTENTIAL PATHOGENS SEEN. Normal [facility] Comment on above: Performed By: #### U RCX #### [facility] [address] [place] [address] Dr. Fadi Meza UA RANDOMon 09-01-2022 Bilirubin Ql (U) Negative Normal NEGATIVE [facility] Comment on above: Performed By: #### U A #### [facility] [address] [place] [address] Dr. Fadi Meza Clarity (U) CLEAR Normal CLEAR [facility] Comment on above: Performed By: #### U A #### [facility] [address] [place] [address] Dr. Fadi Meza Color (U) YELLOW Normal YELLOW [facility] Comment on above: Performed By: #### U A #### [facility] [address] [place] [address] Dr. Fadi Meza Glucose Ql (U) Negative Normal NEGATIVE [facility] Comment on above: Performed By: #### U A #### [facility] [address] [place] [address] Dr. Fadi Meza Hemoglobin Ql (U) Negative Normal NEGATIVE [facility] Comment on above: Performed By: #### U A #### [facility] [address] [place] [address] Dr. Fadi Meza Ketones Ql (U) Negative Normal NEGATIVE [facility] Comment on above: Performed By: #### U A #### [facility] [address] [place] [address] Dr. Fadi Meza LEUKOCYTES Negative Normal NEGATIVE [facility] Comment on above: Performed By: #### U A #### [facility] [address] [place] [address] Dr. Fadi Meza Nitrite Ql (U) Negative Normal NEGATIVE [facility] Comment on above: Performed By: #### U A #### [facility] [address] [place] [address] Dr. Fadi Meza pH (U) 6.0 [pH] Normal 5-9 [facility] Comment on above: Performed By: #### U A #### [facility] [address] [place] [address] Dr. Fadi Meza SPEC GRAVITY 1.025 Normal 1.005-<=1.025 [facility] Comment on above: Performed By: #### U A #### [facility] [address] [place] [address] Dr. Fadi Meza UA PROTEIN Negative Normal NEGATIVE/ TRACE [facility] Comment on above: Performed By: #### U A #### [facility] [address] [place] [address] Dr. Fadi Meza Urobilinogen Qn (U) 0.2 {Shan'U}/dL Normal 0.2 - 1. 0 [facility] Comment on above: Performed By: #### U A #### [facility] [address] [place] [address] Dr. Fadi Meza CULTURE URINEon 08-02-2022 CULTURE [...] Trimethoprim/Sulfame thoxazole >=320 R F Normal [facility] Comment on above: Performed By: #### C VDTB #### [facility] [address] [place] [address] Dr. Fadi Meza UTI ([facility]4 Labs)on 07-05-2022 UTI Report Diagnosis Info Invalid Interpretation Code [facility] Comment on above: Result Comment: Osmani riggs UTI Organisms Acinetobacter baumannii:NOTDETECTED Aerococcus urinae:NOTDETECTED Alloscardovia omnicolens:NOTDETECTED Hsannon albicans:NOTDETECTED Shannon glabrata:NOTDETECTED Shannon parapsilosis:NOTDETECTED Corynebacterium riegelii:NOTDETECTED [...] on: 07/04/2022 23:05:19 Performed By: #### 2 [id number] ####[facility] [address] [place] [address] UTI ( Labs)on 07-03-2022 UTI Method of Extraction Voided Normal [facility] Comment on above: Performed By: #### 2 [id number] ####[facility] [address] [place] [address] UTI Number of Jars 1 Invalid Interpretation Code [facility] Comment on above: Performed By: #### 2 [id number] ####[facility] [address] [place] [address] UTI Specimen Urine Normal [facility] Comment on above: Performed By: #### 2 [id number] ####[facility] [address] [place] [address] UTI Type of Service Global Normal [facility] Comment on above: Performed By: #### 2 [id number] ####[facility] [address] [place] [address] Urology Office/Clinic Noteon 06-27-2022 Urology Office/Clinic Note [...] the case. Cysto w/ UD 02/25/22 (Dr. Saze). After Cysto was the worst she has [...] Low estrogen (more content not included)... Normal [facility] Comment on above: Result Comment: Elec tronically Signed By: Jalen Robledo\.br\Date and Time Signed: 06/27/22 00:01 EDT Ambulatory Visit Summaryon 0 06-25-2022 Ambulatory Visit Summary JESSA CHATMAN :1985 Visit Date:06/25/2022 Ambulatory Visit Instructions Your Diagnosis Recurrent UTI Bilateral kidney stones Tests Performed Urnls Dip Stick Auto w/o Microscopy POC 41792 Your Care Team Attending Physician - Jalen [...] Urnls Dip Stick Auto w/o Microscopy POC 56410 (06/25/2022) Bilirubin Urine Dipstick - 1+ Small Blood Urine Dipstick - 3+ Large Glucose Urine Dipstick - Negative Ketones Urine Dipstick - Trace - 5 mg/dl Leukocytes Urine Dipstick - Trace Nitrite Urine Dipstick - Negative Protein Urine Dipstick - 2+ (100 mg/dl) Specific [place] Urine Dipstick - 1.025 Urine Appearance Urine [...] to exami (more content not included)... Normal [facility] Patient Educationon 06-25-20 Patient Education [...] this condition includes: ? Antibiotic medicine. ? Ayhf-bkq-udmipix medicines to treat discomfort. ? Drinking enough [...] these instructions at home: Medicines ? Take pkes-llv-enxabnm and prescription medicines only as told by [...] This in (more content not included)... Normal [facility] Coding Summary.on 04-23-2022 Coding Summary. [id number] Gh0bWw+PGhlYWQ+PE1FV KDeJ81onYUxrI5QO7eFQ O3SRJULMLLFHT3JUX1hp AC2PEszD1KuitZp YkkjaORpQP69WUg2UNG4 vIqkCNfwfV5cuZKvQ9n0 NvYnAI97vG18WCnhJJYz SyS7YuGhebegyBJz H4fmJzEvbPLwRwt+PHRh YmxlIHdpZHRoPScxMDAl WiMvxYnlIP9vAr2uNKYw LWNvbGxhcHNlOiBj w9gfZOFxTYntJB8imEah M4IwnYG2EFNkp2r5Ez57 dHI+JSKcMZP5bQlpZUlr d999SxBxa8idDOZ6 uXOkHZwyWGO5P56zo2J4 MPBeXQIzDCU4qIZ0gR9p fUfznbqgE5VqsZRvJiX4 MUD1xDOpwR5eiGvu uptraS1dXxe+N18VBE7I QRGBNA2HQaf9J8UwAbtc dHI+DB79QWUfZC41hLGu wMKdi9ubrZz1AcEk GRCgAPX7eMjqPYvsm0Hc UJWxO49chAUry1V9MPQs rItpmTYnGcFnlGQ1nE0k QNnerbgeh8zfdkuz Yvwbz8hjng88gE42S38h TTndPCBoVHN6XXSmYJJj jYaxhe3zrB8rFw2+IDxj h8sik6hywAq8SrOp BMSzarUdyYkeBBY6z4Zo Hp72F8XqrFsvp8CvWos2 vp48nSDvf1I4nTO1BFcw AGRmdI3nCJnoPnK8 RUMvUkJncI08zDEvSSjq Nt9vcDepbRvoFL5hHXSz zneiXSHrbB7gNLMttCXw tAuiPI6fIGLjirvp y253ErQjAUP3HNSouMUw W4QlhH9oUoYbOWNkPGNw Z6DkjSTtOMdoN238YFpp UaH1JJLqseVtR3Kl IEPmaQuvFiF6p3J5Pb7G f0RbwinmTDX4SEjtCCA3 WjL0EjVfKnX5D3YlDpk4 BWTcoIxdPZ2dY5Ot LVVfolwwcjnevMT3VRBe WBBkoN19fFKbICwtQs7y h4B9e613NXRfATDpkE93 Zw0bzAghSDQgiYUL nC1jvkqxn0bqhttxHvPn YEZiKOw6WJy3INGigYbw ZaWyKDW7AxE7ZNK2pUDc eD2rkFcbptbzdR6l Oyc+C12oqE1kXBN7RHM0 akpoWGVyegWuFX26MT08 U2VpJhurcIGbuEO+PGRp rgVlwSfdCB0wCfSl o4wtn4KrOWwbR2XiJKZd ARzjCza5OBVgIJF7fBV8 pG8wWCGsRZydi2J3qSO6 X8OzjoSigx9ps8rj CSThBJrcM61zoXJiz8Y3 EGNtkBX9EWCbpGhgYvJk vM83Ump+FKDlbMbpp8Hy Nopnp0isr1eobPw9 IjMwJSIgdmFsaWduPSJ0 e7RaFi92P17aAOibFTYz VNFnOWAsEFFtvRttgn8y uA8tOr4+PGNvbCB3 vYC4eG5dFSMmBpT9HTac R185HzOfuBGrUyafa6rr u8sooXu1CxVbAWTpazRi wGrcUFW5r6DeQt08 E98nRSmqWNEeOALpULWs CLOtuRiosj1jzR5dOy3+ ZY5km4emsy56fC78jXP+ MDPyQNQ7tFaiNJiz ANZqlL3lVJhzNuR1WGOw QzNifS66jTUyOIabQk2i gHwxmWvvNO8tCUNrgqyv h047ZeVje0ciWROf iKAjLNdqWSK0V77uw8H0 ARTaQMZmZHE0aKZ7mR5k bGlnbjogbGVmdDsgdmVy cCouPKtuWUxoW001 IHRvcDsnPlBhdGllbnQg MaIgCMb1D4AqOvt1IFNc eTaxEJ9fmYBlZHywKj6k uNnygUdnKL0kULCt zvbpf491AmZmo6teANSj kAGjKFubXJN3B01ij0P7 AIBtSJQuITN5mQT2mE4r bGlnbjogbGVmdDsg obOulJzmTNdgPTsdG605 IHRvcDsnPkJpcnRoIERh tMZ3TV11AQ69pLBzl1J7 rUC1E9WuFBHjuris dtevlGE1HLPxTYBsfM45 Bc6bwBgqAb6uNZUnSHD2 CDNmsRNoB1YjkE6dDwIs VZNqDBIrM3OlxSAk ALsjG144EKjkUaK6ZMVq djCtF6QpRWHwgNszBlR8 z6P5Gm1DG3L6AR30OB46 vGAsj7Q4bDF6U1Wz OQGoldpvftoazVJ7YYSi XKByrU95Vk2rzPzqVh6x TYZtMGR4GPDglIDzF7Pm aZ6mEeSsJJGqGSMj K2ZhwSNkLNarO562TEkt AlY6KGBujeBeF8SpSHYr lZfzWiK3d9C5Ub7ENKz1 ZU76KE43tPEht3L8 iOE3W9ScGFGkqjurcqnq wWO1BXTrXUBqcD45Cd3e kMipQx6oOTHuTCH4PDVk gGNiU8ApiF2oFyUy GETuGQYxN3LlnYGtEVsj A911CSaoKaZ7WYKajoDw E0GdWRGisMzsZjB6e2W8 Ov4NQTMsUG67SCC9 cLW7KR39CU80G6RgZfme dGFibGU+PHRhYmxlIHdp ZHRoPScxMDAlJyBzdHls GU8hJu1zHNAfDOGr wJaeeDZqLvAil4pjKTYp TKblPS3jgAtbP4VlwNB8 NEEdu6x1Ky44P12wO8Ph dXA+XNNzzUS3qYK0 mD7qTvCjTkT0WUifT299 KdAruUOvGtvws3cpc8wx fLd0OoP4FBZmeoDdtJyt DWS8w8JaUr34Z53n IHdpZHRoPSIxNSUiIHZh iYskrl7dsP4jNj6+PGNv nXI8qTX5nX2oBjUvTaT6 JXmuP039VePrhPPm Szfqm8tnt0qlpQo5GsIt EGQrnuVjbOyyUGC9p1Pd Oa04N4PfcBznu2XdSmw3 th30yIXer5I7kQD1 P1RkTJHxciahqEIikNnc LV7dUSDdcqluSXNazG3k XCKzR5y7WpDyNkO9QHdu V5ZpbxS5FEGdiAEo CVqkBDO1T95yc9Q7AETc APBgAVW9sIW5uC7phYbq bjogbGVmdDsgdmVydGlj QDlcDIwnP860DGCs eJpkIADzjQ5iCGMffJCk dWklOA2eXDDypbvdGg7I ZHRDKMCEUR9WOUmuyKI+ KRXhASA2gLmcWRox YOFzlX9zTEMjY6i5HlQt WcM5HDmpN8JzWETynkyd Pn86lJ8jOaOlVtC7KFho T6XvazK3XWDmbHRe AYafCAF1Z67py8E5FMAg RVZvWUA9zQC4jB8zdBdh bjogbGVmdDsgdmVydGlj VPdpRCvuE225RARy pPfeRcL6YhL8YoD4ZZS8 M9OrLzx5QPQukWtmTI8r qBVdNWmiJw4omXsdcIwz LR3aVZHczllrUUIe sB3lHPKxzYEenJkeNY4d DNXmqphdr647MqGlQZK8 IZMnjVRdJ2EcjO5vSaZq EVWcNZOyP7XevURx DQxeA627WHqlNnT5JGMz feMdQ0WbZXSueNneEtN2 z1V9Ig8wAWFYZTOjxyfl dGQ+DPDgHQK8wKgg CHjkFBTzaB6tEMUoG6t4 NjGrHcR9ZRjhK5XgPWHj uupgLr48oG6sVxIoMaQ0 YLnpT0FfntT6TABh dKJkSGtnVJZ3I10pg7W6 OSLaOUGkIYT7rJH3jE6o bGlnbjogbGVmdDsgdmVy uTvhYTagHTgnV245 IHRvcDsnPkZlbWFsZTwv dGQ+DJOlTBT1yLufZPmj BWFyyH6zNRJtH9h4DeCz UaF0INdkM0EhEVSb qodjLf20mG0lUyHcMnM6 IFsmY5ZqmyS4QOWxpLMu YAemVSX8Q47pq5T6CLDk XVPcNFY5aYN0vQ1k bGlnbjogbGVmdDsgdmVy gDmzPAzaDTavT088TKDl tDvcVbhaVwAAui1zII6c ZjwvdGQ+RY07kz68 S5EnZixdIyu6PGZfESM8 oIK9dX3gMYGaHFpen6K5 tUH6O9HvqmZhpe9os0ft UOJyQWkeU96vvEWy l4W2IKMbeKE9JGPexCca LpHouW70Dec+PGNvbGdy n1NeXpiof0yqw5axbGo7 IjMwJSIgdmFsaWdu OSI0j6AsUh34F59mGMkq ZHRoPSIzMCUiIHZhbGln pk8poS5nHc1+PGNvbCB3 pGX8uC9hNdNcStC6 OKfcR653ZtEngGJvAfae q0qnm2cqyVx7TyDsSXWx eeDcaUwwWSG1a5IxXr57 U1HmqTmkx8TxCba6 bf56zNZst2T7uXO7G6Sn DCSvweamxSWotTluZH2f OJItuinvLDTuyQ9hQSIs B1g9EcUeEsT3OCfy I0XcjtF5JPTxlWPePHHf oNPAiY1cehyja4stnfem FkPsELNdGGx5WGj2UNLx eIjrPuYzVAV3BdG7 SNP6sKNwcZ2juLkheomn xG9qNod+WUj7l9atwNLe FR7xnGD7JP87DB88pJFh l0Z4xQJ2V3DjEUOv wufnqjhzmZI5RKMaKQMf bK80Bx0hxVngKy4cJVGl CHH9LDIftOTjL5CguC8z DlEnFFHjQBFjW9Vr xFQyWAppP458OWxdWpD3 ABDeynYcQ4YiMXFynBdo NcB0p6P7Aq7DPE89MM80 RI29rIHmu4G7nQN1 W0JtJOFndmfjhqrzrEP2 HUFiEUPepD24Ii9dkBxl Xc0uMNJrNQQ6RIVosQLb N3ZxoT9nZkEuZXXz BGAtZ2GnmHTqKAoeZ214 OThfClZ1XRVdfxVpK0Bz ROHsxIhhYuJ1o2U5Mm4T Gm75GS05FB63jUPk w3G1hAH3Y2BlTUIgdksb udtjxMZ8FXDpVQKlhU05 Qb0htYqdJn1sAIWsWAF4 WOYmvPZkT9PejW5d CnMfWBDiWWOmY0LkxDCa LZisF051KYmaApH4JFSq ktIcM0WbJAPopBckNyM6 w3Q6Fq1SERkprke7 U1KiRswfaSI+CO44IPDx EP93xAWyrDHnb2ouaNm4 EjJyQGJpBKH9yMstARfj s7DsJFLvP91ijPIr c2U6 (more content not included)... Normal [facility] Reminders 04-18-2022 Reminders - From: Lupis Turner To: EU - Clinical; Sent: 04/15/2022 15:02:18 EDT Show up: 04/18/2022 08:00:00 EDT Subject: Urine culture Reminder/Recall Urine culture done on 04/15/22 addressed by ANNITA Smalls [facility] C Urineon 04-17-2022 Bacteria identified [...] Locations R1: This test was performed at: [facility], [address] [place] [address], [facility] , , [facility] Comment on above: Performed By: #### 2 [id number] ####[facility] [address] [place] [address] Coding Summary.on 03-13-2022 Coding Summary. CD:[id number] Gh0bWw+PGhlYWQ+PE1FV ZUiK81cwYVcxX5DP7oEA Z2IISGHUEFDZZ7OCX2ci UN0HCnrW6WmoyFa HywozCGkEB99WTl2IYY7 sQlmRWvqeJ3ncDUlW0b2 WgIwWG65pQ99MEodWOBn UmR7LaLymrnevGPs O9coNvOkwCZkJcy+PHRh YmxlIHdpZHRoPScxMDAl CsWqnCsnNX4aJo7fMBCq LWNvbGxhcHNlOiBj f0shERWyLFkiJC5jpRjv O2EshXD9UIFlj1f6Fr03 dHI+GKQsBPW6wUxoGZls s127SvJlk5tpBGS3 mFDgZJjiHLD4V42bq3Z3 URGmQUSbLLR8aGK1oJ1l sMtrtopnM6NadKPkSvK5 FKR6rNCawO4gcQyp hndgaA7uZlc+M82FWU5Y DTREVF9MJhj8J7NmMjlz dHI+JO56HBIbYD63lDBx aIBcq9cuzUg4IaBd HGYwPDR7uXuaPTrsx5Xn DCPwH96chCNdr3X9VJAt pDdgcZGsGzFarCZ7tL0v EAyusjapz4jbmusw Qxrrd6pyem29tI21E21c BIagHQXfCAP0TNQaJQMb kTfbjf8fyD3fOn3+IDxj m2ccp2setFk8GjWc YMUbtyQfyYzoHAE5f6Po Hb99W2RpvCntf3KbLiv2 zm49pNWwl9F2nCJ3EKqr FPJckL9oHXttXqF8 WUShTsYyyV74aGTmGXzm Xp2tpDkxxJhlYB8qNEUw xusmIYLvcW8qMUFdgVDg aDuiFA2oLTLskktv k175DzClWFW5ITDquXNf N1WhbG4gMdYhFOIdVVBc P3KqrQRpCYtmG279CDyt HbK1HDPbopCfA7Dl ZEQpeOjaPmC6o6L5Yz2I s9CskptsWUE4YUogYVE6 KhP8JpJuCiT9T7JuQdy1 UPUdoPyjSF3cS0Bs PHJhlxdavadquLG3XNRc GICejX60nCCpZDfgRe0q e9V4j406IUKuPFHqyZ26 Fj8ljEanNIEvdCFA jI1tagrpc9dxijmfQcRn YAXeULu8YMo7AQUfeCrc HjYcELW5SkL7LNV0iANj rA3ksRwrzbemnR8f Oyc+X03rbV8tVLP9ZYZ1 bxuyKCPsfxIxTZ01CL06 Y6BtZlfvrTYhwZQ+PGRp xdEewMiqJT4sGsBv k6hta4SuTMoeE0QuUCZh LPtyDwk8MJKgAOO4uZU0 rI3nCHNbDBxdm8B7lBX7 J9VghbUtlx7nz1nr QVLgSQabP44ruDUfh2T9 TSBfjOR2JRPeoAqzGhCs nD12Rgd+LGGufQequ9Pk Njota2luf2vchHm3 IjMwJSIgdmFsaWduPSJ0 x4FjAu99E68oCXfeLTWp ERAaRTRrQSSwvIiqtf9u iY7kIb8+PGNvbCB3 pNI6oQ9nWRIrDmT1GIgy K276DpArjUGzFeiix8mf k0mgeZb8BaLvSHFtdbAk zRarFSH9e7VnTz48 B04yQQekZNXbGZTyDKKu FMSnrFxfmu9eyI3vDa9+ XG0gy8yzvr52aR70iYG+ DAMxISB2tFdfWUsr LHQulN2rVZqaCmK4FLFc RhHtjE11uKBoMGdbPr7l oZuspLoxGT1uTQQfkxmb w385VvKaz3rcUVAl mRVmLFbyLOJ8G31cc6L9 GYZxGYTcAOE6qXA6qI1j bGlnbjogbGVmdDsgdmVy ySjnISzjVBbdS078 IHRvcDsnPlBhdGllbnQg XdZaCLv5A5TaYxx1RGVs jVjdNX6aiGBjAEleNj4j bRmkoVkiIM1qJMCq fmkgp050OkSmk1hqYSOm xZKpNNhwGXU2B00ej6V3 HLUyVLKhUXD8gYV4vK7h bGlnbjogbGVmdDsg bnJmnKnuYKebSTuyH535 IHRvcDsnPkJpcnRoIERh iNY1XZ81WO84wLBlj9Z2 mOP7D8VpXQRieaxg uqbqxYE3WBVpEVNmoR23 Fc9bqHpfHa7mLZYbBIT7 WINiwVSlE1QvqR2dShBw SADqUUTrX7QlfYBt JZybR321WDeiCrX8UXKs jyEdG0KyRVYqzJdxDnM0 q5G3Wc4GI7W3VA88HV40 qNJqu5Q2cAY9K5Rg MZAulgoxwucqbNR3AKBh WNDnfN18Uz8nsUxwGi8q BFLbZZE8SQOywQDjH3Uw cW2mYeYmXVLuVXZf X8CziPCoQVjgU490GFob HqX9ABPppoKyZ9LgMWRd nAczCiO8j1Q6Dy3GJOy5 RO78EB93uZJdy4R1 mSG2U9QzEXFeskwqtqkk lQO0EDTrRJAguF56Lr4y mIltEt6vBPUeAAQ7AQBz qJLeT7VzyD8vRjIa OLMsFQMrH8EdyBLdYItk V032PRuoClG5LPUoclHs G9QvHERdfGmfGqZ1h4U5 Mf1PUIAiVW97WIX5 hBM8XF31BB59V5ErQyhm dGFibGU+PHRhYmxlIHdp ZHRoPScxMDAlJyBzdHls EM2wJe7rSVIoTSYr fWdwxQFaHxUue5byBXIe TZowRU4uoOmgZ3EyeLP0 LBXan8g1Ya76D08rQ3Gd dXA+JSWimUE8eWB3 eC9jAsNtCaQ2IDxxJ609 RrWmxKQqKzggz7fwv0qv bWa4YlI9XXDjvpNzkMfh NKN8z1BqJe40N61l IHdpZHRoPSIxNSUiIHZh zHhuga4viQ9nTj1+PGNv zEB1aMX7iK6lXqJzFjE3 MSfmU721UxEeyZNw Rtrco1lab4jlxUl8TaQy HUWaeiClfAxhYDF6v2If Yu90Z0LhhIbsx4ZaBve4 uu50nDCzc8Q0lZK3 U5ObPCLaomljeMCjpCsk SN7oPFSadybyMFLihN8p MRNeY8f0EoQnJcP7LTpc Y7NmnmB5SVWykTGl TCilZDG6N75os9Y9ATKu FTDsGYC9dRY3kN6cfUul bjogbGVmdDsgdmVydGlj YHehGRftQ501OTAx zEftBWDinE8gVGNewQMz ePvdUO6nPYQaoixsKv3L LSCTOVAOJO7ZTUuzzNF+ NWCeRHI7sKymPMfy WFMscV4kQFRaD3u1ZhAp XrZ8SKwmQ9FkPMYpwhui Un60gX5cLvCpMfG2CKot B3SmvgN3TDStqWXi LGhySIG2W91sf7Z4PXQg YZKdARR2kSL6pZ7ubCmi bjogbGVmdDsgdmVydGlj CPqpNXdgV516SVXi kHjsPzU4AgX6GgT5WVE2 U8WnAmy1RJLfgGsiNH6q nMLuWZdiLw6uuXwrwFwk GZ3fWZEgknpiJQWw pK0dKPUbrUWcwLtlSI4e ENVhsvvdb619XcSgAPY2 IBRrnMYhV5ZsqG1aZaMp WZIeYWGzO5AjdOSa QDydL528UGdfDmE4LMAd huIoL3EpYBEmkBgiAbO9 q9J7Pk3pQOREKZCngxpc dGQ+BSGaMSB0qYzg XLpsIVSniK0vGDAcF4s2 ErQhLgX1AYxvC7FxEWPy abssOw03eB1dSmUvQcR3 WOgfZ4TvzeJ7XEVa kRAlEXzlYJQ7P90yc4D7 KJKyZGAaIMP6fMR1wV4z bGlnbjogbGVmdDsgdmVy iBnqRGrbSLcjA441 IHRvcDsnPkZlbWFsZTwv dGQ+ATNzPNL4pLvsGZzx RXCxxP8cDEBpU7u3XmNx HgF2KQnxG3JlGARw mhycGm41yA0lMnOnPmT5 PTvsO5HyhtS8EWUhgEFo SYbgYST1K89te9Y3KLHt URZrFSZ4fTJ7cC6m bGlnbjogbGVmdDsgdmVy bIpwUXckWVvlB119ITUa jNouVzzwSjTRxj9gKV2h ZjwvdGQ+GQ46nd43 D9FrYfsyMds0ZQEbIWT7 xDY0uT7rJVEiELltl6O1 yGH0O9OyohKrnj8gz2xq VGUhJRnlD51ujAJl m0W8SULbjVR6DXVqlWhq FtKjuU42Pdr+PGNvbGdy k7BfCgpxd3ldz5riqHr0 IjMwJSIgdmFsaWdu TYS1h7FzQh71V46oXIkp ZHRoPSIzMCUiIHZhbGln jc3rdD4gRk6+PGNvbCB3 hHH5eW2fCgBfFfW4 CUllT271AqSojRWzRcua a7psb1zzyIo1YiFtTZXg euHujNzdNOS4t2DfDu17 X6XuvBybg1NxCkl5 rt32jVExl1Z9iHF5Q0Uq JJCjzuoakIVpoXnkAT3w DMMblbmdJRTqrY8iQAZu J4o0NwCqHlN8RGzp I0LrhwR8LGOkwGTpOGNb lYBTxZ0rflqaq7xfkapa XwAeODDmDKs3CWy8LZLg rAdhNbQkGSY5HiH2 CJT4kOLuvL5jnVxujbpm sI2xQow+JTh9o8dbvYLt FS1zyCB8AM61CC47cBBw r0I3xPW0D2GpSAXk hsdcxhfvqOR6SAJxYGUi hJ19Rc2kxCivYa4wWJNe SNS9XUKnxHRoP7ExyP2b TqLiNYXrQMKhO9Qq rJBoIOugM621LAdzVzZ4 IDHmbjUxV0AnEDPvxSob IjO7r9I1Ni1WVB14GY49 WE45aSEqf9T8jJM5 O0AwSUVnycnlfiymwBP1 RRVbRULftV01Ve8mlZao Ur0eENSpMFM2DWRhaTSv J9SisC7mBiToAPLl ZXRpP6SmrRGwGOubR176 FOuaYtE7YIMmojZrT4Iu VDNgnProLbS2w4B9Hj8H Zl61UC98XM71vRLg v7X2uLJ6I8RqKSGrhrqw epakbFR6SRTrXUBfaU16 Be1jnJlvNf8vUSSoRXX3 RJDnaFDcP4NckQ3y FdUeSGBcZNTsF5EbuVPn KTvcT181GXswEkQ9JIFo dzWbA2UfALMvhSteSuL0 t2K3Wg0HLZuepbm5 N5IzMutzmVK+DG58MJNr DZ39jTMgdGEob6kkuPm2 KzYwTUKzHAB7hYikXXpu d9XaCMMwE20waLPz c2U6 (more content not included)... Normal [facility] C Urineon 03-08-2022 Bacteria identified Cx Nom (U) Microbiology PROCEDURE: Urine Culture [R1] SOURCE: U Random BODY SITE: COLLECTED DATE/TIME: 03/06/2022 14:52 EDT RECEIVED DATE/TIME: 03/06/2022 16:10 EDT START DATE/TIME: 03/06/2022 16:10 EDT FREE TEXT SOURCE: SAHYNA JENNINGS, Kwadwo SAEZ MD, Kwadwo Andrade FINAL [...] Locations R1: This test was performed at: [facility], [address] [place] [address], [id number] , , [facility] Comment on above: Performed By: #### 2 [id number] ####[facility] [address] [place] [address] Reminderson 03-06-2022 Reminders - From: Lupis Turner To: EU - Clinical; Sent: 03/06/2022 14:52:59 EDT Show up: 03/09/2022 14:52:00 EDT Subject: UA micro, CX Reminder/Recall UA micro/culture done on 03/06/22 Normal [facility] URINALYSISOrdered By: Nazario doyle on [...] PM) Normal Negative [facility] UA Auto SS [place].plasma/Lithiu m.RBC (Bld) [Mass ratio] 0-3 /HPF Normal [...] [Mass/Vol] Negative (03/06/22 2:52 PM) Normal Negative [facility] UA Auto SS Specific gravity (U) [Rel density] 1.015 *NA* (03/06/22 2:52 PM) Invalid Interpretation Code 1.005 - 1.030 [facility] UA Auto SS UA Spec Desc Random Urine (03/06/22 2:52 PM) Normal [facility] UA Auto SS Urobilinogen Qn (U) 0.2381352 {Shan'U}/dL Normal 0.0 - 1.0 EU/dL [facility] UA Auto SS WBC Auto Ql (U) Negative (03/06/22 2:52 PM) Normal Negative [facility] UA Auto SS WBC LM.HPF (Urine sed) [#/Area] 6-15 /HPF Invalid Interpretation Code 0-5/HPF [facility] UA Auto SS Urinalysison 03-06-2022 Bacteria LM Ql (Urine sed) 2+ /HPF Abnormal Trace [facility] Comment on above: Performed By: #### 1 [id number] ####[facility] [address] [place] [address] Bilirubin Ql (U) Negative Normal Negative [facility] Comment on above: Performed By: #### 1 [id number] ####[facility] [address] [place] [address] Clarity (U) SL CLOUDY Abnormal Clear [facility] Comment on above: Performed By: #### 1 [id number] ####[facility] [address] [place] [address] Color (U) YELLOW Normal Yellow [facility] Comment on above: Performed By: #### 1 [id number] ####[address] [address] Epithelial cells.squamous LM.HPF (Urine sed) [#/Area] 3-4 Normal 0-2 [facility] Comment on above: Performed By: #### 1 [id number] ####[facility] [address] [place] [address] Glucose Test strip (U) [Mass/Vol] Negative Normal Negative [facility] Comment on above: Performed By: #### 1 [id number] ####[address] [place] [address] Hemoglobin Ql (U) Negative Normal Negative [facility] Comment on above: Performed By: #### 1 [id number] ####[address] [address] Ketones (U) [Mass/Vol] Negative Normal Negative [facility] Comment on above: Performed By: #### 1 [id number] ####[address] [address] [place].plasma/Lithiu m.RBC (Bld) [Mass ratio] 0-3 Normal 0-3 [facility] Comment on above: Performed By: #### 1 [id number] ####[address] [address] Mucus Ql (Urine sed) TRACE Normal Fish [facility] Comment on above: Performed By: #### 1 [id number] ####[address] [address] Nitrite Ql (U) Negative Normal Negative [facility] Comment on above: Performed By: #### 1 [id number] ####[address] [address] pH (U) 7.5 [pH] Invalid Interpretation Code 5.0-9.0 [facility] Comment on above: Performed By: #### 1 [id number] ####[address] [address] Protein (U) [Mass/Vol] Negative Normal Negative [facility] Comment on above: Performed By: #### 1 [id number] ####[address] [address] Specific gravity (U) [Rel density] 1.015 Invalid Interpretation Code 1.005-1.030 [facility] Comment on above: Performed By: #### 1 [id number] ####[address] [address] Type of Urine collection method Random Urine Normal [facility] Comment on above: Performed By: #### 1 [id number] ####[facility] [address] [place] [address] Urobilinogen Qn (U) 0.2 {Shan'U}/dL Normal 0.0-1.0 [facility] Comment on above: Performed By: #### 1 [id number] ####[facility] [address] [place] [address] WBC Auto Ql (U) Negative Normal Negative [facility] Comment on above: Performed By: #### 1 [id number] ####[facility] [address] [place] [address] WBC LM.HPF (Urine sed) [#/Area] 6-15 Abnormal 0-5 [facility] Comment on above: Performed By: #### 1 [id number] ####[facility] [address] [place] [address] Consent for Procedure/Surger yon 02-26-2022 Consent for Procedure/Surgery [id number] 9#1.00CD:127 Normal [facility] RAD - MISCon 02-26-2022 RAD - MISC [id number] 8#1.00CD:127 Normal [facility] RAD - Ultrasound Reporton RAD - Ultrasound Report [id number] #1.00CD:127 Normal [facility] Ambulatory Visit Summaryon 0 02-25-2022 [...] Kwadwo SAEZ MD Where: [facility] Flo Smalls [facility] Patient Educationon 02-26-20 Patient Education [...] these instructions at home: Medicines ? Take jibv-jyi-feisvik and prescription medicines only as told by [...] 04/13/2009 Document Revised: 03/13/2020 Document Reviewed: 03/13/2020 [email or web address] Patient Education ? 2019 [employer]. [facility] Urology Office/Clinic Noteon 02-25-2022 Urology Office/Clinic Note [...] urine The Urethra was dilated to: 18-30_ Mexican with sounds. urethra bled. dry. Removal: Cystoscope [...] EDT [facility] [address] [place] [address]- Additional Instructions: Patient Education Kidney Stones, Olpj-dy-Jkdb Devonte Nickerson personally scribed for Dr. Saez [...] Grandparent. Diagnostic Results Tests Reviewed: Reviewed UA. [facility] Comment on above: Result Comment: Elec tronically Signed By: Kwadwo SAEZ MD R\.br\Date and Time Signed: 02/25/22 15:21 EDT\.br\Electronically Co-Signed By: Devonte Echeverria\.br\Date and Time Co-Signed: 02/25/22 15:19 EDT Pre-Certification Formon Pre-Certification Form [id number] 0#1.00CD:127 [facility] Reminderson 02-10-2022 Reminders - From: Kristyn Echeverria MA To: EU - Clinical; Sent: 02/04/2022 16:03:36 EDT Show up: 02/08/2022 16:03:00 EDT Subject: Urine Culture Reminder/Recall Urine culture Pt is currently . ANNITA addressed [facility] C Urineon 02-07-2022 Bacteria identified Cx Nom [...] Locations R1: This test was performed at: [facility], [address] [place] [address], [id number] , , Normal [facility] Comment on above: Performed By: #### 2 [id number] #### [facility] [address] [place] [address] Performed By: #### 2 [id number] ####[facility] [address] [place] [address] Coding Summary.on 02-07-2022 Coding Summary. CD:[id number] Gh0bWw+PGhlYWQ+PE1FV PUjO91wvPSihA7EK0mYM B5QGVZBIYTTMC1XDG2sp GA9CSgoB2EbtyJn JxyhsGUvDJ22ZAy7LPO1 kGhcLXxjxW2qfMTvF5v1 AtBmCU26eW85GMpqXBKg TvB2BsDosbzjmDGt F8qkMiVssJBxCrx+PHRh YmxlIHdpZHRoPScxMDAl ObUmlNzjSV9iDo2zAHSz LWNvbGxhcHNlOiBj l8omDYIjLWfgTX7dcGel E2XugZO3PZUtu5o9Ti48 dHI+KJZhCRQ4tWhaMDlv s971LpOet5imQYD1 jUXrZBxnEUB5R67wu4Y2 UAPmJRVqZMG2nZL6bK3o qOseiwtzV5CowHLgXjG2 QHH7jDZflA5jdYpk pgdgvL4fRvx+B66OYI3U MDPOAI1DQhb0T6HjBdtx dHI+NI44AZSyDU10lWHj lTCux8nudDb6QkVz NXUnROM7rLjzFQfgv0Is SPFxH42byURsg8I3QDVr gNonoTSaKpEjoIC9jG1s RTuaedrtt3gxeump Mcaib8ijsc28xL00P03w MQpkLPJxGBO2DJOfDXAj pGnxvn9xkT6dQa2+IDxj x1tzf8ugsGn9EmPc XBZqogRbxXbuPGB6s8Zd Ri78U6WfvIwik8DqZeu5 lj15rKWts0E4kNH9EVgo AVAfpO0uPRntBeD1 WEXmAmPoaD48zWTaFOoc Sg7blOzxrQioNQ4gWNDk iobbDRFheQ7zXYZdgJQi mDbyLY2oFMPugecg b354WnXcQUN6TKWssFCc W3CpbQ6cWvDeXSXuFSBz G5LkeSXwALzxW176OHmz EtZ6GWOoosEfK8Kq PLYogNtaWlM0b3T2Aj7H p7AfdziyCTA0RWofFNZb BcPwEqTcEqT6C6VoOyn1 AYZhoFqqVB0nV5Vs OVUjqyhreegcaAQ6SYXg YTPjhJ18kZLsIWqxJh6s c5Z6g973RKBeNDMlgF41 Sk7ojLgoARHbaNJT oF2ilgogk5cdftvaVtBc UHLdYZm5AWr9SLKeqPte WrCgARP5PaL8JCV3uGKb dW3ziOknlobqnP6p Oyc+T86zxA0gAGZ8HRM7 buwxNMFfovFcBJ92CR91 P2UyKiokwISnhNV+PGRp jkQyrCmdMW2yQkJj h8dxl4AmWXcsF5JjVAXz DNfcBqv3DJRoRNS7sPZ1 zC4zBZApNFedu6X8nZL2 K9SujiAzfp8xu2yj ZOXfKEdrK77npXQwb4F4 ANMxiIT3PPYvaXeoSrAg oW85Oxu+JLPqfUwuw3Mm Sktqc5sub0thkOk6 IjMwJSIgdmFsaWduPSJ0 g4LbHt66J55bKIbrNFAf CFRhGBOrQOUcgWeqmh7r yV9tKc0+PGNvbCB3 yWV0hN8rNOEeTeL7FCgh X751AlWhpVGqQhich1wv x3wbyXg8XyDoCLCccdAr xWbcIGQ7l8GsAg54 Q56bOMniZYWdNSGtJHUc TXAptYavgs1rgP2wOn6+ GN4rc1xleo27nG91mOB+ UTRiJSU1rTkqOCpw UEGyrE5wDUnaObW8BSIx YkNesG65fLZlTAphQf0t rEepvIeaXF3qWQYkgzxu n021OjAmp9pwASNh wTZwUFoiMEC7J12gu6M3 YPFyHYLhHHS5iWO4rO4v bGlnbjogbGVmdDsgdmVy qWziUNxkIZslK322 IHRvcDsnPlBhdGllbnQg HgEnPGd5Z8TjYof8WFTk fQavZY8zwAKvCUhiUv8g fLxfeGraCN1fHVOt kwijm781ErBuq4zqLAXw fFSxNEvrNHR0T13rl6T5 UJDcRSUrUEC1mQJ4eE6k bGlnbjogbGVmdDsg buVsxFtwUQiuGCoxU449 IHRvcDsnPkJpcnRoIERh pPX3KA62GC64sJMiz2N8 uWG5V7EgPCCfylaq nzivhIL9YIQbEWThtU25 Ak5twPvpOq3qQOUuXWI1 IYCkoAKkA0XosC5tFuPn HFEhLEUvP6KjaCOf CWumG900FCgtHyM5ORTh igPvD2GqJTUmaKdpIaR3 w9L0Dd4UG6X8RY90RV31 oIQsl8I4iUE2T9Sz CWPcdbbkzxltwZZ6GVMk PBZpoI14Tg4pvUcwFb2i WYXyOJE0IYPzgFEoR5Ca rC9wZsOiTFVfSSMr Z1FprRXiPYhyR734QTgo BzC5TCOqdcMwF0NsJWBu qXfcQeG4p3A8Yd9MWIj5 US31JI52uROvo9M0 gGU7X6RaHUOsowpjutft mDP8RGVrSPQirH03Uy6m dRtxIn0uOTUrGGQ6AONu rQDaW3SglL0uFxCe ONXiFYLvY1ZsfEDfSTde K143WOwsYoQ8YPGmrzXj G5SqFJQztTyzIpL1q8O0 Rf5HVRBpXD86UZI2 mWK3JG35ZO17T1AaTweo dGFibGU+PHRhYmxlIHdp ZHRoPScxMDAlJyBzdHls TB0yIz9pTITeSLRe uJznfRKfXuGcz3crIYSw GWlkDL0lqVnxI0IboBU5 TRRwv2j7Sr71H57fU2Iu dXA+BFJnzUF9kJH7 aC2dMpOsLbP4VNsmV180 NlCckTGxIvfsc3apv5hl qWu8NnS3QTFlyoJcuWwu GTY0b1EsRh60K24r IHdpZHRoPSIxNSUiIHZh jCcauf5ndX5dFu5+PGNv tCB0uZY6fM5pVyWaIfX6 QThuF591ZaJmsESd Nfzca4fci5cjbRw7YpEd DCVcreDobKsyUDJ1u5Yx Er20V5JceTyhw3EiUfi3 px76yKKcy8W4fJA6 X9LjVRMxhytcdBNcrAyt GZ9cOSMdlntpNGDcbB7m HQJjL4k8IrMpTaL6MLnw I8LbdeU8YFBcbBYi JUvfHNM8I44ms3C7HBOz PKTeHOQ6xWI4iX7emMil bjogbGVmdDsgdmVydGlj NMedHYnhN170BUAe zKldHVBhlJ2hXPLruWBw qYzwMC8rWOQglftgJc6M NQPJMDAYGL5FEScifFZ+ SIJqSEW0mZziPRas BAWqeB0gZORpS4p4VaUr JvU5WKzlB1LuVINbrlfv Hc84vY5dKwJcTmQ5IXgc W0HsvbX0OEUdrAHv WYgpALP7U47ji0A7BYAo BBUeELB0xUY0zR2siGoy bjogbGVmdDsgdmVydGlj DUalOYceR671IPWt oOsyEkU9EhJ8GqJ5HCT5 P4XbDdc7VMVvgFjxCC6s bIAbSErzWm8fkKiixVvy FD3fUMJrpgouASIk wJ1mLYHbrOQwiAnwQR5n SNJowsypf067OsKhRLA6 OIIqxSUaQ4OluX9cScRl GCErWOYsP4UbmWIy RWwyC537IHdgRzQ7WXWk zgTkC1PoOELieGntPmU8 u2I3Cy5lTAENHJTwkaoo dGQ+YUSbYDI3fYss BYloTYXnpA1gLBUvB8p3 CaZuNlY0THszM3FfWVNn uxheAp80yW5sBnTxPiG2 ELppJ9AeptL0OBRo eFSqUKypPCX3D52rl4W7 IBLhXZYjNOB4pAO3jJ9k bGlnbjogbGVmdDsgdmVy aJulQIybBGmyX425 IHRvcDsnPkZlbWFsZTwv dGQ+JIQfMBA5bJwoADhb GUYgkI0hNPDyE4f5CrHk CbA3AHfnZ3GtUDJd jzzhSv28hR0vAkLzLkV6 FJocJ4WpwuS5FYCupNBl JVbtVDI8Y46ns3A0IWMr JTHaVKZ1oSS3rN9b bGlnbjogbGVmdDsgdmVy jWjlRWeiJLmpG705AIMm oHnrQrzjNbTJcp0xVR0p ZjwvdGQ+ZX88vm68 N5GbRbghInb1ABKqWNN3 fJF1mE7xSLKrHVeps1C5 eLN1X7KbugOyzn1so8jw EQTnLRhyZ81tpMXd d1O8YDUinFU8AUTpfZjb BzDjsF63Iyy+PGNvbGdy q6DaUzhwz5ijh3fnlIa0 IjMwJSIgdmFsaWdu JFQ8h8DmPq77Z41fPSah ZHRoPSIzMCUiIHZhbGln ti1hhX3wBg5+PGNvbCB3 zQG8pJ2sDlQvGqS4 CFfcY815HnZtyTCsPmnv v2omh5ivkOl6FxMnHCTk qyLvqZdvHXQ7n4CnLk38 M7CunBryz2OoIxz9 kb74rRBpx7J0dAP9U3Qo RKBkslzblFLucXmaEW9l IPTtmpjuJAPidV8gNCOv P3l4SmFhMjW4VFfz M8WrqzG0HWFkdJNgSYSb zUICqV7agoveh0rwqijm HxIqENAhDAb4BNy2KHAi zLnrRpUoINB2GfO0 ZOL3hNMtgS3ogOntrbwc nQ1mJwq+XCm8s8biaPTm FH0feUV4ZT09OM53gDMc a8D5sXT4V3RgAOWi aolerehmmLF9LBTsQBJd eH32Vx2ohLaoAy6oEGCd HZC1BZRqdNUtQ2PfrA7q NcQgGDRpYSEaM5Ls rIPqYQdiO396RWkoSqE7 KYCjnlDdS3FqRHIrsTln GhU9s3W5Mk3HKM96PD00 TA74mLEnl3D3pSA7 S3GuVYLjgveslgacjFN1 WJIuZPUtjL10Ob1zqBsf Xx6kDBDcPNG1OZNakBWj S1UpfS3aXaPbJSPb DDXyJ6TkjYSbDTfxX523 PGqxCrP2UPUdfbSbQ9Ku RYIbsUhzWrD6k0G1Sn8K Wt51LZ93VP84jXBx l7S8sUU3W2VqJJSwvrjc xtyphXB1UYJzLSTsvT64 Dc8qiKntCf1mECKgMUT7 LBJyiQLaN8DfhA9d PtVfBFUhXOQgL6RaqSAv BFksM595AVelKkN3IDXz xcMmU7NcDFDwiVzqNoC2 y1B7Vy9QFDerqxj0 K0VpVbpjhKU+JU67FWAb ST53iYGcvDFxj5imrDt2 KwSjYCHoDPD1lRvjGKtw c7IlMKLbJ85vcFWr c2U6 (more content not included)... Normal [facility] US renal BIon 02-07-2022 US renal BI [facility] [place] [address] Ultrasound Report Signed Patient: Jessa Chatman MR#: [id number] 9 : 1985 Acct:[id number] Age/Sex: 36 / F ADM Date: 02/07/22 Loc: Room: Type: [facility] Attending Dr: Saida Abad PA-C Ordering [...] DO 02/07/22 1522 Signed By: 02/07/22 1524 [facility] XR KUBon 02-07-2022 XR KUB [facility] Main [place] [address] [place] [address] XRay Report Signed Patient: Jessa Chatman MR#: [id number] 9 : 1985 Acct:[id number] Age/Sex: 36 / F ADM Date: 02/07/22 Loc: Room: Type: [facility] Attending Dr: Saida Abad PA-C Ordering [...] Mark Stark M.D.02/07/2022 3:13 PM Dictation Location: [facility] Transcribed By: KARI 02/07/22 1513 Dictated By: Mark Stark DO 02/07/22 151 Signed By: 02/07/22 151 [facility] Patient Educationon 02-05-20 Patient Education Pharmacology Antibiotic [...] Trouble breathi (more content not included)... Normal [facility] Urology Office/Clinic Noteon 02-04-2022 Urology Office/Clinic Note Chief Complaint referred for recurrent UTI. HPI Staff Jessa is here today as a new patient referred by [employer] SOFTWARE DEVELOPMENT SPECIALIST for recurrent UTI.Started Cleocin 300mg on [...] on Cleocin x 7d in Dec per EMERGENCY VETERINARY TECHNICIAN. pt has not noticed any connection with [...] baths & hot tubs, avoid any scented EMERGENCY VETERINARY TECHNICIAN products, urinate after sexual activity, etc) PVR [...] E&M of New Patient Moderate 45-59 Min 71048 Urnls Dip Stick Auto w/o Microscopy POC 38808 US Renal XR Abdomen 1 View Orders: [...] Protein Urine Dipstick: Negative (02/04/22 14:41:00) Specific [place] Urine Dipstick: 1.025 (02/04/22 14:41:00) Urine Appearance Urine Dipstick: (more content not included)... Normal [facility] Comment on above: Result Comment: Elec tronically Signed By: SAIDA ABAD PA-C.br\Date and Time Signed: 02/04/22 16:12 EDT Vital Signs Date Time Vital Sign Value Performing Clinician Facility 06-25-2022 09:14-0400 Blood Pressure Location Jalen Mora [facility] 06-25-2022 09:14-0400 Diastolic blood pressure 86 mm[Hg] Jalen Mora [facility] 06-25-2022 09:14-0400 Heart rate 77 /min Jalen Mora [facility] 06-25-2022 09:14-0400 Systolic blood pressure 130 mm[Hg] Jalen Mora [facility] 06-18-2022 10:45-0400 Body height 162.56 cm Devin Lam Other [facility] [place] Other 06-18-2022 10:45-0400 Body mass index (BMI) [Ratio] 28.49 kg/m2 Devin Lam Other [facility] [place] Other 06-18-2022 10:45-0400 Body weight 75.3 kg Devin Lam Other [facility] [place] Other 06-18-2022 10:45-0400 Diastolic blood pressure 76 mm[Hg] Devin Lam Other [facility] [place] Other 06-18-2022 10:45-0400 Respiratory rate 16 /min Devin Lam Other [facility] [place] Other 06-18-2022 10:45-0400 SaO2% (BldA) [Mass fraction] 99 % Devin Lam Other [facility] [place] Other 06-18-2022 10:45-0400 Systolic blood pressure 118 mm[Hg] Devin Lam Other [facility] [place] Other 05-13-2022 16:00-0400 Body height 162.56 cm Devin Lam Other [facility] [place] Other 05-13-2022 16:00-0400 Body mass index (BMI) [Ratio] 29.73 kg/m2 Devin Lam Other [facility] [place] Other 05-13-2022 16:00-0400 Body weight 78.56 kg Devin Lam Other [facility] [place] Other 05-13-2022 16:00-0400 Diastolic blood pressure 68 mm[Hg] Devin Lam Other [facility] [place] Other 05-13-2022 16:00-0400 Respiratory rate 16 /min Devin Lam Other [facility]: [place] Other 05-13-2022 16:00-0400 SaO2% (BldA) [Mass fraction] 97 % Devin Lam Other Float: [place] Other 05-13-2022 16:00-0400 Systolic blood pressure 114 mm[Hg] Devin Lam Other [facility]: [place] Other 04-16-2022 10:30-0400 Body height 162.56 cm Devin Lam Other [facility]: [place] Other 04-16-2022 10:30-0400 Body mass index (BMI) [Ratio] 30.72 kg/m2 Devin Lam Other [facility]: [place] Other 04-16-2022 10:30-0400 Body weight 81.19 kg Devin Lam Other Float: [place] Other 04-16-2022 10:30-0400 Diastolic blood pressure 80 mm[Hg] Devin Lam Other [facility]: [place] Other 04-16-2022 10:30-0400 Respiratory rate 16 /min Devin Lam Other [facility]: [place] Other 04-16-2022 10:30-0400 SaO2% (BldA) [Mass fraction] 99 % Devin Lam Other [facility]: [place] Other 04-16-2022 10:30-0400 Systolic blood pressure 130 mm[Hg] Devin Lam Other [facility]: [place] Other Encounters Encounter Date Encounter Type Care Provider Facility Start: 10-28-2023 End: 10-28-2023 ambulatory MOUNA LUIS M Not Available Start: 10-23-2023 End[facility]: 10-08-2023 End: 10-08-2023 ambulatory MOUNA LUIS M Not Available Start: 09-23-2023 End: 09-23-2023 ambulatory MOUNA ANGEL Not Available Start: 04-15-2023 End: 04-15-2023 ambulatory Devinkye Arroyoelias Other [facility]: [place] Other Start: 04-15-2023 Telephone encounter Devin Lam [facility] Start: 01-19-2023 End: 01-19-2023 ambulatory Devin Lam Other Float: [place] Other Start: 01-19-2023 Telephone encounter Devin Lam [facility] Start: 12-19-2022 End: 01-07-[address] MOUNA ANGEL . Facility:[facility] Start: 12-05-2022 End: 12-06-[address] MOUNA ANGEL . Facility:[facility] Start: 11-19-2022 End: 11-19-[address] MOUNA ANGEL . Facility:[facility] Start: 11-16-2022 Encounter for preprocedural laboratory examination DR MOUNA ANGEL . [facility] Start: 11-13-2022 End: 11-14-[address] MOUNA ANGEL . Facility:[facility] Start: 11-13-2022 End: 11-14-2022 Encounter for preprocedural laboratory examination DR MOUNA ANGEL . Facility:[facility] Start: 11-12-2022 End: 11-12-[address] MOUNA ANGEL . Facility:[facility] Start: 11-12-2022 End: 11-13-[address] MUONA ANGEL . Facility:[facility] Start: 09-01-2022 End: 09-01-[address] MOUNA ANGEL . Facility:[facility] Start: 07-30-2022 End: 07-30-[address] MOUNA ANGEL . Facility:[facility] Start: 07-03-2022 End: 07-03-2022 Patient encounter procedure Dasia Addison [facility] Start: 06-25-2022 End: 06-25-2022 Patient encounter procedure Jalen Mora [facility] Start: 06-18-2022 End: 06-18-2022 ambulatory Devin Genaro Other Float: [place] Other Start: 06-18-2022 Office outpatient vi sit 15 minutes Devin Cruzs [facility] [place] Start: 05-13-2022 End: 05-13-2022 ambulatory Devin Cruzs Other Float: [place] Other Start: 05-13-2022 Office outpatient vi sit 15 minutes Devin Cruzs [facility] [place] Start: 04-16-2022 End: 04-16-2022 ambulatory Devinkye Arroyos Other Float: [place] Other Start: 04-16-2022 Office outpatient vi sit 25 minutes Devin Cruzs [facility] [place] Start: 04-15-2022 End: 04-15-2022 Lab Drop off SAIDA ABAD [facility] Start: 04-15-2022 End: 04-15-2022 Patient encounter procedure Kwadwo SAEZ [facility] Start: 03-06-2022 End: 03-06-2022 Lab Drop off Kwadwo SAEZ [facility] Start: 03-06-2022 End: 03-06-2022 Patient encounter procedure Ravinder MCCAULEY [facility] Start: 02-04-2022 End: 02-04-2022 Lab Drop off SAIDA ABAD [facility] Procedures Date Procedure Procedure Detail Performing Clinician Start: 11-09-2013 Colonoscopy and biop sy of colon Kwadwo SAEZ Start: 11-09-1989 History of tonsillectomy Kwadwo SAEZ Start: 11-09-1989 Tonsillectomy SAIDA ABAD Start: 11-09-1989 Tympanotomy SAIDA [place] Immunizations Immunization Date Immunization Notes Care Provider Fa cility 11-09-2020 SARS-CoV-2 mRNA (tozinameran 5y-11y) vaccine Jalen Mora [facility] Comment on above: Result Comment: [facility] 03-10-2015 tetanus toxoid, reduced diphtheria toxoid, and acellular pertussis vaccine, adsorbed Kwadwo SAEZ [facility] Comment on above: Reason for Medicatio n: Other (see comment) NEGATED: Highlighted row has not occurred!02-19-2019 influenza, seasonal, injectable Patient Objection Devin Lam Other Float: [place] Other Payers Date Payer Category Payer Unknown [id number] 2.16.84 [id number] 1986 Unknown [id number] 2.16.84 [id number] 1986 Unknown [id number] 2.16.84 [id number] 1986 Unknown [id number] 2.16.84 [id number] 1986 Unknown [id number] 2.16.84 [id number] 1986 Unknown [id number] 2.16.84 [id number] 1986 Unknown [id number] 2.16.84 [id number] 1986 Unknown [id number] 2.16.84 [id number] 1986 Unknown [id number] 2.16.840 .[id number] 1986 Unknown [id number] 2.16.840 .[id number] 1986 Unknown [id number] 2.16.840 .[id number] 1959 Unknown [id number] 2.16. [id number] 1959 Unknown [id number] Social History Date Type Detail Facility Start: 02-04-2022 End: 02-25-2022 Tobacco smoking status Never smoked tobacco (finding) [facility] Tobacco smoking status Never [facility] Sex Assigned At Female [facility] Functional Status Date Assessment Result Facility 06-25-2022 Functional Status N/A [facility] Clinical Notes 02-04-2022 to 10-23-2023 Note Date & Type Note Facility 10-23-2023 Note F/U with OB and mate rnal medicine as scheduled [facility] 10-23-2023 Note [facility]TP CARDIOLOGY PROGR ESS NOTE HPI: Jessa Chatman is a 38 y.o. female here for tachycardia during Patient here per Dr. Angel for tachycardia in . She is currently 32w5d along. SOFTWARE DEVELOPMENT SPECIALIST started her on metoprolol tartrate 25mg [...] scheduled RTC 2-3 months or as needed [facility] 10-23-2023 Note Patient here per Dr. Angel for tachycardia in . She is currently 32w5d along. SOFTWARE DEVELOPMENT SPECIALIST started her on metoprolol tartrate 25mg daily a few weeks ago, which as helped with palpitations. HR gets as high as 147 at rest sometimes. This issue went away after the of her last baby. Review of Systems Cardiovascular: Positive for dyspnea on exertion. Neurological: Positive for light-headedness. All other systems reviewed and are negative. [facility] 04-15-2023 Evaluation note Encounter Date Diagnosis Assessment Notes Apr, Spontaneous rupture of tympanic membrane of right ear concurrent with and due to acute suppurative otitis media (ICD-10 - H66.011) [facility]: [place] Other 01-11-2023 NoteOPERATIVE NOTE OPERATION DATE: 11/19/2022 PROCEDURE: Suction D AND C. PREOPERATIVE DIAGNOSIS: Missed first trimester. POSTOPERATIVE DIAGNOSIS: Missed first trimester. ANESTHESIA: General. SURGEON: Mouna Angel D.O. ENTERTAINMENT DIRECTOR: None. FINDINGS: Products of conception. SPECIMEN: Products [...] products of conception were removed using a 9-Mexican suction curette. Excellent hemostasis was noted. The patient tolerated the procedure well. Sponge, lap, and needle counts were correct x 2. All instruments were then removed from the patient's vagina. The patient was taken to the Recovery Room in stable condition. [id number] Evaluation + Plan note Diagnostic Tests Pending * UTI ([facility]) 07/03/22 [facility] 08-17-2022 Hospital Discharge instructions Patient Education [...] Follow these instructions at home: Medicines Take vaal-gtt-qgccftw and prescription medicines only as told by [...] 10/26/2006 Document Revised: 03/13/2020 Document Reviewed: 03/13/2020 [employer] Patient Education 2019 [employer]. 06/25/2022 09:59:21 Urinary Tract Infection, Adult Urinary [...] Treatment for this condition includes: Antibiotic medicine. Mlos-szh-rtmehhn medicines to treat discomfort. Drinking enough water [...] Follow these instructions at home: Medicines Take vunk-jki-bwlvsro and prescription medicines only as told by [...] 08/05/2006 Document Revised: 10/13/2019 Document Reviewed: 05/05/2019 [employer] Patient Education 2020 [employer]. [facility] 08-10-2022 Evaluation note* Encounter Date Diagnosis Assessment [...] that she can go off it completely. [facility]: [place] Other 07-05-2022 Evaluation note* Encounter Date Diagnosis [...] calf. I recommened a consult with a fitness instructor. Patient would like to hold off on the referral for now. [facility]: [place] Other 06-08-2022 Evaluation note* Encounter Date Diagnosis [...] or any other dysrhythmias. She voices understanding [facility]: [place] Other 03-29-2022 Evaluation + Plan note Diagnostic Tests Pending * [facility]ments Appointment Date:07/02/2022 02:45:00 PM Scheduled Provider:Kwadwo SAEZ MD Location:[facility] Appointment Type:URO Office Visit [facility] Evaluation + Plan note Future Appointments Appointment Date:07/02/2022 02:45:00 PM Scheduled Provider:Kwadwo SAEZ MD Location:[facility] Appointment Type:URO Office Visit Diagnostic Tests Pending * [facility]rine [facility] Future Appointments Appointment Date:07/02/2022 02:45:00 PM Scheduled Provider:Kwadwo SAEZ MD Location:[facility] Appointment Type:URO Office Visit Diagnostic Tests Pending * [facility] [employer] Other History general Narrative - Reported* Type Description Date Medical History Anxiety Hospitalization History childbirth [facility] [employer] Other Hospital course Narrative No data available for this section [facility] No data available for this section [facility] No data available for this section [facility] Summary Purpose Family History No Family [...] (H66.011) Referral Organization [facility] [place] Referring Provider First Name Devin Referring Provider Last Name Genaro Referring Provider Specialty Family Prac brittanie Referred Organization [facility] Referred Provider Aldo Bolanos Referred Address ,[place], [place],[address] Referred Provider Specialty Otolaryngolo gy Referral Priority Routine General Notes Fore, Higinio M 023 12:56:47 PM >Received today. [facility] request us to send the referral and they will call and schedule patient. Referral was fax Clinical Notes Office [phone] Additional Source Comments INFORMATION SOURCE (unrecogn ized section and content) DATE CREATED AUTHOR 02/26/2022 [facility] DATE CREATED AUTHOR AUTHOR'S ORGANIZ ATION 07/04/2022 [facility] DATE CREATED AUTHOR AUTHOR'S ORGANIZ ATION 07/05/2022 [facility] DATE CREATED AUTHOR AUTHOR'S ORGANIZ ATION 01/21/2023 [facility] DATE CREATED AUTHOR AUTHOR'S ORGANIZ ATION 10/25/2023 [facility] DATE CREATED AUTHOR AUTHOR'S ORGANIZ ATION 10/29/2023 [facility] EPIC REASON FOR VISIT (unrecogniz ed section and content) weight management/ UTI4 week follow up-weight mgmt.1 month Follow up weight managementClinicalClinical Care Team (unrecognized sect ion and content) Personnel Name: DEVIN LAM DO Address: [address] [place] [address] Personnel Name: DEVIN LAM DO Address: [address] [place] [address] FOR RECORDS PERTAINING TO PATIENTS WHO ARE [...] BE BASED ON THE PRIMARY CLINICAL RECORDS. [facility] [employer] [facility]. provides no warranty or guarantee of the accuracy or completeness of information in this document.
[2023-11-13 08:01] VITALS: BP 120/74; PULSE 85
== END 2023-11-13 08:54 | disposition home or self-care (01) ==
LOC: FBCO 06:54 → FBC 07:54
PROVIDERS: Visit Provider Obstetrics & Gynecology
DX: O26.843 Uterine size-date discrepancy, third trimester (principal); O09.523 Supervision of elderly multigravida, third trimester
CPT/HCPCS: 59025

== ENCOUNTER 2023-11-16 07:12 | Outpatient (OUT) | payer BC, SELFPAY ==
--- OUTSIDE RECORDS SUMMARY | 2023-11-16 07:15 | XMS_ITS | CCD ---
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 Name Role Phone DEVIN LAM Primary Care [...] Translations: [acetaminophen-hy drocodone] Drug Allergy Nausea (finding) [facility] (13 sources) Banana Extract; Translations: [Banana] Drug Allergy 09-10-20 20 Itching (finding) [facility] (8 sources) Melon; Translations: [melon] Drug allergy 09-10-20 Itching (finding) [facility] (5 sources) Melon Propensity to adverse reactions Unknown [employer] Other (1 source) Acetaminophen / HYDROcodone Drug Allergy 09-10-20 20 [facility] (1 source) Acetaminophen / HYDROcodone; Translations: [HYDROCODONE-ACET AMINOPHEN] Drug Allergy 04-10-20 21 [facility] Repository Medications Current Medications Medication [...] day(s), # 90 cap(s), Refills(s) 0, Pharmacy: [facility] [id number] [facility], 162, cm, 02/25/22 14:21:00 EDT, [...] procedure, # 2 cap(s), Refills(s) 0, Pharmacy: [place] [id number] [facility], 162, cm, 02/04/22 14:57:00 EDT, Height/Length Dosing, 75, kg, 02/04/22 14:57:00 EDT, Weight Dosing Start Date: 02/04/22 Status: Ordered citalopram 20 mg oral tablet (10 sources) Serotonin Reuptake Inhibitor Start: 02-04-2022 take 1 mg by mouth once daily CeleXA 20 mg Tab mg tab(s), Oral, Daily, Refills(s) 0 Start Date: 02/04/22 Status: Ordered take 0.5 tablet by m [facility] every twenty-four hours Citalopram Hydrobromide 20 MG 0.5 tablet Orally Once a day Active Docusate (9 sources) Start: 02-04-2022 take 1 mg by mouth twice daily Dulcolax Stool Softener mg, Oral, BID, Refills(s) 0 Start Date: 02/04/22 Status: Ordered Start: 03-09-2015 take 1 capsule by mo [facility] twice daily as needed for constipation Colace [...] Ordered take 1 capsule by mo [facility] once daily at bedtime Macrobid 100 MG [...] 10 day(s), 20 tab(s), Refill(s) 0, [facility] [id number], 162, cm, 02/25/22 14:21:00 EDT, [...] Range Facility Office Visiton 10-23-2023 Follow-up visit [id number] Jessa Chatman 1985 F Date Provider Department Center 10/23/2023 Abelino-ARACELI MCKENZIE [facility] No family history on file Level of Service:28062 MI OFFICE/OUTPATIENT ESTABLISHED MOD MDM 30-39 MIN Normal [facility] PROGRESSon 10-23-2023 Beta HCG ( [...] sugar. She voiced understanding of risks. Normal [facility] PREG QUANT HCGon 12-19-2022 HCG QUANT 5 mIU/mL Normal [facility] Comment on above: Performed By: #### P REGQNT #### [facility] [address] [place] [address] Dr. Fadi Meza HCG RANGE SEE BELOW Normal [facility] Comment on above: Result Comment: 5-50 0.2-1 WEEK 50-500 1-2 WEEKS 100-5,000 2-3 WEEKS 500-10,000 3-4 WEEKS 1,000-50,000 4-5 WEEKS 10,000-100,000 5-6 WEEKS 15,000-200,000 6-8 WEEKS 10,000-100,000 2-3 MONTHS Performed By: #### P REGQNT #### [facility] [address] [place] [address] Dr. Fadi Meza PREG QUANT HCGon 12-05-2022 HCG QUANT 43 mIU/mL Normal [facility] Comment on above: Performed By: #### P REGQNT #### [facility] [address] [place] [address] Dr. Fadi Meza HCG RANGE SEE BELOW Normal [facility] Comment on above: Result Comment: 5-50 0.2-1 WEEK 50-500 1-2 WEEKS 100-5,000 2-3 WEEKS 500-10,000 3-4 WEEKS 1,000-50,000 4-5 WEEKS 10,000-100,000 5-6 WEEKS 15,000-200,000 6-8 WEEKS 10,000-100,000 2-3 MONTHS Performed By: #### P REGQNT #### [facility] [address] [place] [address] Dr. Fadi Meza CBC AUTO DIFFon 11-19-2022 BASO # 0.0 103/ul Normal 0.0-0.[address] [facility] Comment on above: Performed By: #### C VDTBH #### [facility] [address] [place] [address] Dr. Fadi Meza Basophils/100 WBC (Bld) 0.7 % Normal 0.2-2.[address] [facility] Comment on above: Performed By: #### C VDTBH #### [facility] [address] [place] [address] Dr. Fadi Meza EO # 0.1 103/ul Normal 0.0-0.[address] [facility] Comment on above: Performed By: #### C VDTBH #### [facility] [address] [place] [address] Dr. Fadi Meza Eosinophils/100 WBC (Bld) 2.1 % Normal 0.9-7.[address] [facility] Comment on above: Performed By: #### C VDTBH #### [facility] [address] [place] [address] Dr. Fadi Meza Erythrocyte distribution width (RBC) [Ratio] 13.7 % Normal 11.0-15.[address] [facility] Comment on above: Performed By: #### C VDTBH #### [facility] [address] [place] [address] Dr. Fadi Meza Hematocrit (Bld) [Volume fraction] 36.9 % Normal 36.0-48.[address] [facility] Comment on above: Performed By: #### C VDTBH #### [facility] [address] [place] [address] Dr. Fadi Meza Hemoglobin (Bld) [Mass/Vol] 11.8 g/dL Critically low 12.0-16.[address] [facility] Comment on above: Performed By: #### C VDTBH #### [facility] [address] [place] [address] Dr. Fadi Meza IG # 0.01 10e3/ul Normal 0.00-0.03 [facility] Comment on above: Performed By: #### C VDTBH #### [facility] [address] [place] [address] Dr. Fadi Meza IG % 0.2 % Normal 0.0-0.5 [facility] Comment on above: Performed By: #### C VDTBH #### [facility] [address] [place] [address] Dr. Fadi Meza LYMPH # 1.3 103/ul Normal 1.2-3.8 [facility] Comment on above: Performed By: #### C VDTBH #### [facility] [address] [place] [address] Dr. Fadi Meza Lymphocytes/100 WBC (Bld) 29.3 % Normal 20.5-60.0 [facility] Comment on above: Performed By: #### C VDTBH #### [facility] [address] [place] [address] Dr. Fadi Meza MANUAL DIFF REQ NO Normal [facility] Comment on above: Performed By: #### C VDTBH #### [facility] [address] [place] [address] Dr. Fadi Meza MCH (RBC) [Entitic mass] 28.4 pg Normal 26.7-34.0 [facility] Comment on above: Performed By: #### C VDTBH #### [facility] [address] [place] [address] Dr. Fadi Meza MCHC (RBC) [Mass/Vol] 32.0 g/dL Normal 29.9-35.2 [facility] Comment on above: Performed By: #### C VDTBH #### [facility] [address] [place] [address] Dr. Fadi Meza MCV (RBC) [Entitic vol] 88.9 fL Normal 81.0-99.0 [facility] Comment on above: Performed By: #### C VDTBH #### [facility] [address] [place] [address] Dr. Fadi Meza MONO # 0.5 103/ul Normal 0.3-0.8 [facility] Comment on above: Performed By: #### C VDTBH #### [facility] [address] [place] [address] Dr. Fadi Meza Monocytes/100 WBC (Bld) 10.6 % Normal 1.7-12.0 [facility] Comment on above: Performed By: #### C VDTBH #### [facility] [address] [place] [address] Dr. Fadi Meza NEUT # 2.5 103/ul Normal 1.4-6.5 [facility] Comment on above: Performed By: #### C VDTBH #### [facility] [address] [address] [address] Fadi Meza Neutrophils/100 WBC (Bld) 57.1 % Normal 43.0-75.[address] [facility] Comment on above: Performed By: #### C VDTBH #### [facility] [address] [address] [address] Fadi Meza Platelet mean volume (Bld) [Entitic vol] 9.4 fL Critically low 9.5-13.[address] [facility] Comment on above: Performed By: #### C VDTBH #### [facility] [address] [place] [address] Dr. Fadi Meza PLT 210 103/ul Normal 150-[address] [facility] Comment on above: Performed By: #### C VDTBH #### [facility] [address] [place] [address] Dr. Fadi Meza RBC 4.15 106/ul Critically low 4.20-5.40 [facility] Comment on above: Performed By: #### C VDTBH #### [facility] [address] [place] [address] Dr. Fadi Meza WBC 4.3 103/ul Normal 4.0-11.[address] [facility] Comment on above: Performed By: #### C VDTBH #### [facility] [address] [place] [address] Dr. Fadi Meza PREG QUANT HCGon 11-19-2022 HCG QUANT 00458 mIU/mL Normal [facility] Comment on above: Performed By: #### P REGQNT #### [facility] [address] [place] [address] Dr. Fadi Meza HCG RANGE SEE BELOW Normal [facility] Comment on above: Result Comment: 5-50 0.2-1 WEEK 50-500 1-2 WEEKS 100-5,000 2-3 WEEKS 500-10,000 3-4 WEEKS 1,000-50,000 4-5 WEEKS 10,000-100,000 5-6 WEEKS 15,000-200,000 6-8 WEEKS 10,000-100,000 2-3 MONTHS Performed By: #### P REGQNT #### [facility] [address] [address] [address] Fadi Meza US PREG <14 WKSon 11-19-2022 US PREG <14 WKS Obstetrical ultrasound, 1st trimester CLINICAL: Evaluate prior to scheduled DANDC. TECHNIQUE: Transabdominal and transvaginal obstetrical ultrasound was performed. FINDINGS: Comparison: Ultrasound 11/12/2022 There is a single intrauterine fetus. Mcmillin-rump length is 1.81 cm, correlating with gestational age 8 weeks 3 days. No heart tones are detected. IMPRESSION: 1. Single intrauterine nonviable gestation. No heart tones detected, and no growth since previous ultrasound 11/12/2022. Electronically authenticated by: RUCHI FRANK Date: 2022-11-19 13:[address] [facility] PAP ACOG PANEL 2: 30 to 65on 11-16-2022 . . Normal [facility] Comment on above: Result Comment: Perf ormed at: WB Performed By: #### 4 [id number] #### [facility] [address] [address] [address] Fadi Meza Age Gdln ACOG Testing 30-[address] [facility] Comment on above: Performed By: #### 4 [id number] #### [facility] [address] [address] [address] Fadi Meza DIAGNOSIS: Comment Normal [facility] Comment on above: Result Comment: NEGA TIVE FOR INTRAEPITHELIAL LESION OR MALIGNANCY. Performed at: WB Performed By: #### 4 [id number] #### [facility] [address] [address] [address] Fadi Meza HPV Aptima Negative Normal Negative [facility] Comment on above: Result Comment: This nucleic acid amplification test detects fourteen high-risk HPV types (16,18,31,33,35,39,45,51,52,56,58,59,66,68) without differentiation. Performed at: =G Performed By: #### 4 [id number] #### [facility] [address] [address] [address] Fadi Meza HPV Genotype Reflex Comment Normal [facility] Comment on above: Result Comment: Crit eria not met, HPV Genotype not performed. Performed at: WB Performed By: #### 4 [id number] #### [facility] [address] [place] [address] Dr. Fadi Meza Methodology: Comment Normal [facility] Comment on above: Result Comment: This liquid based ThinPrep(R) pap test was screened with the use of an image guided system. Performed at: WB Performed By: #### 4 [id number] #### [facility] [address] [place] [address] Dr. Fadi Mzea Note: Comment Normal [facility] Comment on above: Result Comment: The Pap smear is a screening test designed to aid in the detection of premalignant and malignant conditions of the uterine cervix. It is not a diagnostic procedure and should not be used as the sole means of detecting cervical cancer. Both false-positive and false-negative reports do occur. . Performed at: WB Performed By: #### 4 [id number] #### [facility] [address] [place] [address] Dr. Fadi Meza Performed by: Comment Normal [facility] Comment on above: Result Comment: [place]y [place], Account Strategist (ASCP) Performed at: WB Performed By: #### 4 [id number] #### [facility] [address] [place] [address] Dr. Fadi Meza Specimen adequacy: Comment Normal [facility] Comment on above: Result Comment: Sati sfactory for evaluation. Endocervical and/or squamous metaplastic cells (endocervical component) are present. Performed at: WB Performed By: #### 4 [id number] #### [facility] [address] [place] [address] Dr. Fadi Meza CHLAMYDIA/GONOCOCCUS TALAT (SW AB/URINE/PAPon 11-15-2022 Chlamydia trachomatis, TALAT Negative Normal Negative [facility] Comment on above: Performed By: #### C T/NGNA #### [facility] [address] [place] [address] Dr. Fadi Meza Neisseria gonorrhoeae, TALAT Negative Normal Negative [facility] Comment on above: Performed By: #### C T/NGNA #### [facility] [address] [address] [address] Fadi Meza VAGINITIS/VAGINOSIS DNA PROB Kel 11-14-2022 Shannon species Negative Normal Negative [facility] Comment on above: Performed By: #### V AGINT #### [facility] [address] [address] [address] Fadi Meza Gardnerella vaginalis Negative Normal Negative [facility] Comment on above: Performed By: #### V AGINT #### [facility] [address] [address] [address] Fadi Meza Trichomonas vaginalis Negative Normal Negative [facility] Comment on above: Performed By: #### V AGINT #### [facility] [address] [place] [address] Dr. Fadi Meza Covid-19 PCR (CVDTB)on SARS-CoV-2 (COVID-19) RNA TALAT+probe Ql (Unsp spec) Not detected Normal NOT DETECTED [facility] Comment on above: Result Comment: This test is not yet approved or cleared by the [place] FDA. When there are no FDA-approved or cleared tests available, and other criteria are met, FDA can make tests available under an emergency access mechanism called an Emergency Use Authorization (EUA). The EUA for this test is supported by the [place] of Health and Human Service's (HHS's) declaration [...] SARS-CoV-2. Performed By: #### C VDTBH #### [facility] [address] [place] [address] Dr. Fadi Meza US PREG TVon 11-12-2022 [...] MANUEL VEGA Date: 2022-11-12 16:44 Normal [facility] CULTURE URINEon 09-01-2022 CULTURE URINE Culture Observations: LIGHT GROWTH OF MIXED GENITAL SIRIA. NO POTENTIAL PATHOGENS SEEN. Normal [facility] Comment on above: Performed By: #### U RCX #### [facility] [address] [place] [address] Dr. Fadi Meza UA RANDOMon 09-01-2022 Bilirubin Ql (U) Negative Normal NEGATIVE [facility] Comment on above: Performed By: #### U A #### [facility] [address] [place] [address] Dr. Fadi Meza Clarity (U) CLEAR Normal CLEAR [facility] Comment on above: Performed By: #### U A #### [facility] [address] [place] [address] Dr. Fadi Meza Color (U) YELLOW Normal YELLOW [facility] Comment on above: Performed By: #### U A #### [facility] [address] [place] [address] Dr. Fadi Meza Glucose Ql (U) Negative Normal NEGATIVE [facility] Comment on above: Performed By: #### U A #### [facility] [address] [place] [address] Dr. Fadi Meza Hemoglobin Ql (U) Negative Normal NEGATIVE [facility] Comment on above: Performed By: #### U A #### [facility] [address] [place] [address] Dr. Fadi Meza Ketones Ql (U) Negative Normal NEGATIVE [facility] Comment on above: Performed By: #### U A #### [facility] [address] [place] [address] Dr. Fadi Meza LEUKOCYTES Negative Normal NEGATIVE [facility] Comment on above: Performed By: #### U A #### [facility] [address] [place] [address] Dr. Fadi Meza Nitrite Ql (U) Negative Normal NEGATIVE [facility] Comment on above: Performed By: #### U A #### [facility] [address] [place] [address] Dr. Fadi Meza pH (U) 6.0 [pH] Normal 5-[address] [facility] Comment on above: Performed By: #### U A #### [facility] [address] [place] [address] Dr. Fadi Meza SPEC GRAVITY 1.025 Normal 1.005-<=1.025 [facility] Comment on above: Performed By: #### U A #### [facility] [address] [place] [address] Dr. Fadi Meza UA PROTEIN Negative Normal NEGATIVE/ TRACE [facility] Comment on above: Performed By: #### U A #### [facility] [address] [place] [address] Dr. Fadi Meza Urobilinogen Qn (U) 0.2 {Shan'U}/dL Normal 0.2 - 1. [address] [facility] Comment on above: Performed By: #### U A #### [facility] [address] [place] [address] Dr. Fadi Meza CULTURE URINEon 08-02-2022 CULTURE [...] Trimethoprim/Sulfame thoxazole >=320 R F Normal [facility] Comment on above: Performed By: #### C VDTB #### [facility] [address] [place] [address] Dr. Fadi Meza UTI (P4 Labs)on 07-05-2022 UTI Report Diagnosis Info Invalid Interpretation Code [facility] Comment on above: Result Comment: Osmani [...] on: 07/04/2022 23:05:19 Performed By: #### 2 [id number] ####[facility] [address] [place] [address] UTI ( Labs)on 07-03-2022 UTI Method of Extraction Voided Normal [facility] Comment on above: Performed By: #### 2 [id number] ####[facility] [address] [place] [address] UTI Number of Jars 1 Invalid Interpretation Code [facility] Comment on above: Performed By: #### 2 [id number] ####[facility] [address] [place] [address] UTI Specimen Urine Normal [facility] Comment on above: Performed By: #### 2 [id number] ####[facility] [address] [place] [address] UTI Type of Service Global Normal [facility] Comment on above: Performed By: #### 2 [id number] ####[facility] [address] [place] [address] Urology Office/Clinic Noteon 06-27-2022 Urology Office/Clinic Note [...] Low estrogen (more content not included)... Normal [facility] Comment on above: Result Comment: Elec tronically Signed By: Jalen Robledo\.br\Date and Time Signed: 06/27/22 00:01 EDT Ambulatory Visit Summaryon 0 06-25-2022 Ambulatory Visit Summary JESSA CHATMAN :1985 Visit Date:06/25/2022 Ambulatory Visit Instructions Your Diagnosis Recurrent UTI Bilateral kidney stones Tests Performed Urnls Dip Stick Auto w/o Microscopy POC 63583 Your Care Team Attending Physician - Jalen [...] Urnls Dip Stick Auto w/o Microscopy POC 36642 (06/25/2022) Bilirubin Urine Dipstick - 1+ Small Blood Urine Dipstick - 3+ Large Glucose Urine Dipstick - Negative Ketones Urine Dipstick - Trace - 5 mg/dl Leukocytes Urine Dipstick - Trace Nitrite Urine Dipstick - Negative Protein Urine Dipstick - 2+ (100 mg/dl) Specific [place] Urine Dipstick - 1.025 Urine Appearance Urine [...] to exami (more content not included)... Normal [facility] Patient Educationon 06-25-20 Patient Education Obstetrics [...] this condition includes: ? Antibiotic medicine. ? Xldp-ckw-vhadybd medicines to treat discomfort. ? Drinking enough [...] these instructions at home: Medicines ? Take qopy-ttm-ekyudek and prescription medicines only as told by [...] This in (more content not included)... Normal [facility] Coding Summary.on 04-23-2022 Coding Summary. [id number] Gh0bWw+PGhlYWQ+PE1FV EPiT81uhVTshI3EM1qMS U0RVXQMTZNBRE8YME3tu TE9PTxfS0KqkvPf NvlfoQEaAF48EQr7MRT7 mEpzLVxxgH2ggAFlK6a9 SyOqIR65hL76UOrsKRGn ShS5OmTqaikugSSw R9fcYoAsaINgXqx+PHRh YmxlIHdpZHRoPScxMDAl BdOhjRfkYL7jMs6fJQBt LWNvbGxhcHNlOiBj p0nnRIFcWZoiUH0reGsp Y2ZjoFO7UMTeh6d7Nb97 dHI+XUSwERH9tKgjNXbh l052BgRbj1uhFUL9 qKFvODjcSGQ7G87gt3T3 WJSbGPMgLQH5qUY8nQ0p tXmfozfzA0RjjQIfLlF4 NWI9dDYqyX7jcFsh owzbqO0qVfg+M64PIO4O HVVKBB1GCrr3Y1IaApst dHI+BY67JCTnAF81iYAj zCWvv1erzPg8RsGq AQFyOSK7jMclLFqmr6Wo YHQkC40tnMCgi0R1UNYi vZgmrLZaTiZmxPO8xU5y BBgmehukd6ndyira Cbbdk6uxbg71jE44P27z QHvqULQyGXC7BFWfVNSb yCcnxy2cpD2qJa3+IDxj j1xhz8dkrCq9FcGg VTXvhoLxyQebBMU4z3Fb Qr87Q9NcuNyfx8WsRpw6 sh12hJAsq5H0oBA6RMyr XELizP6qJJtuUwP6 JMNoZrQqmK84yADdYYmv Qu4inXquwYouRO9mGHVs hgrbQEAnwZ0kWROlfCCd mPziPJ2pBHZnoxet e970MbAjQDI1CRTkdOPw V1ZujJ5zZtCjVLNpFOBo Y1JhuZVdWOkjE545JYey SoA5VATxivCpA6Qv NMUjmCjqKuI0q6R3Ug0U k7CjxhcjMPZ0GSmyEVZ0 XpP7DfIiGfB2D9DrVih2 NJBwzKqjDS3jD9Yn IEPayyfshlhapLA0AYHm DCJhrE04oTLhVBotNd9c a6H7i064UDHfNJPtpC35 We3fcPqxZZMkpMRP sQ3pexrrd8dynaouOwMt OPHcROm3GKq7PSCiyJap GsFkVOR5GtG3TSA7fXKu gY2jeUtdpvjchI4w Oyc+J93uoF8aVDE1PSP4 hekxONSbwhDnHA11ML84 V4UsBnhxnTGrcBX+PGRp uyUkqXeiNM7kRvHi i9vzx6IjBJxtY7LhGNRc LZpfJxw8OXUlKDY9iWM6 rW3vUNJzPOaxp2L0pOF9 S6PqahAovx3dv3ph LDQiMBtjW31tcCMqr4W5 ANTzzKH5YBTzsYgwFvCi pC95Rki+FIFboUnjq6Fe Cebjc4nuk5aklGk1 IjMwJSIgdmFsaWduPSJ0 g1MoMs74V56cEBeoYNZb XVHaTCPtJHKykGhnmd4c sW8xZr3+PGNvbCB3 tFL5pV0lXEKxMnV3YYxk A083ZwEhvOEkEyadu5dr m7gxaHb1BwJlFBDawmOr gBrtWTD5h4EqIa53 C70fYMuvJTKpHZXuENZc ZAPvyPygci0pdL6rLi1+ ZI3se0drmw53iM33bFK+ ECIoKGW9vNbeKXkw MTTgyV8fETzuGoS2CFWw ToDvyY43uDNxLKehCh2y kHfxjRmlNT6xYNLlbpjx a321SiEfi4qlOZRr nJTkEAfmIMY1X40rb2N9 JHZxLRMnTWF6hDR3zG2b bGlnbjogbGVmdDsgdmVy gMgmEJpsQMkmX438 IHRvcDsnPlBhdGllbnQg LxMfCMs1X3VwHwz2QMSh aQhiDE4eoUXlBAcyXo1q bImmbSduSN3pLKFc acuqv050XaEbm1enYACc xIYyNStwKIK0C83rb2V2 UQNjHQOfBOK9fSD9fF3x bGlnbjogbGVmdDsg ibJzcLluVEveUFdzC557 IHRvcDsnPkJpcnRoIERh gDT2RT76MY83mBZlj6P6 tVC9N5EkITCqzhtl fbypjBU0PPXpFBTriH64 Tj2ooIwtVf2zVLMbJOX2 UUBeoIIiV3CqvB0zOmOw GNSyGOUaJ9GmtXCm LFsdS525GNdpYcY2NQYl peNjV9IrQAEquErsQgM6 g6C9Fc3AE1I6UM05GN25 xKEmb8E1zTG7E4Bu RULsedaeslegkUQ8EDHv QOCvoJ85Uo6bkLnnWz8s NMIlDNI1AQQfsGPgA2Vq uH1fGdLnRYYxEFGk F4ApdLJtAWzjV862KYxc CtF9MMOovcKqL5VbSASu jGwpDsJ2u7Q6Qc7XAQr4 QM99GR85iLJoj4X9 vKW1V2LfXESyxnbfrkop vZV5TUFeIOZwyA07Bo7y dSviRz8mOWUwCIY3UJOe fGRbU2JmfW6yJaIv YWDnCTRwQ4VymMIzNOhp G433JKtrAdX7IQTgenBe J4XmBFCpiZarRdE8i0M3 Tc1YKLJzBT52WFB1 tSB6UQ10CX09Z7GcWqvq dGFibGU+PHRhYmxlIHdp ZHRoPScxMDAlJyBzdHls UK9oBe9rMAKeLUIs yZhikUPvUqPqw9xpSJSh SMvkRZ3slGphT3KykCN9 HDOdb0n6La10V64fY4Zx dXA+SXTriPE1gZG7 eF0aGaBtXlS9FGmsC308 HrJdnIGqKpkyn0bgh2aj mAz3GyS0UGGoadMrjQpo USM2d3CbRn15C61k IHdpZHRoPSIxNSUiIHZh vDporo7ncT8aDd3+PGNv vCY1bFA1dG7aKxLkNgP9 ENdlQ209UsNqpSUv Aexoz3lfi5bktRi2HtTc XXIxbaNgpQssRMO5b3Ih El46H2ZrmVvbi9VeSkx0 uf15vAReh5A5kHD2 H1IeWPVehwwxlBEjkTht IW2pSPSoxpszSOHsaO5f DMImU5k5CkIhNdE5SKrl Y1CzjoC9ABZroQKx YOsxNAH8Q64zu9I8KKFn BXXmRFI3iRW6dW9kdOip bjogbGVmdDsgdmVydGlj ETodQKwpI094EZNi bMmgRZBvyT2gAIAlfXSm kMhcQY6lMPOzcjumYk4Q ABCEDBLWVL7UGXqvtOI+ MFItGBX1pUywIAme BYOpkS0wNBAnS3n7NjCj TgP8MDaqX3XyTNMdrkwt Pu13zE8mHbHeIgH5IWzb B9RydaG5RRFydYZm YJzaHZE6E76be2A4BWQq YQRoXXX6gYT6nC4gsBua bjogbGVmdDsgdmVydGlj RWxgONknI091MUVl bNkxRiM1QdF2RnS5MID6 V1WoBxj8KDAgbZyzFY6j zKLgIOvsYs7ixBhhkZmq JX2dOJOsfueyRYHr aM7oKORxkETllQjrBQ0s KFQfksybi858OxAuIVX8 KUZfiLLnE2WydM5fPjNn XSKdGNMaN2AulQHu IMypG738STcxHlG7BPDr znIqV5YfCHLhfIwwEpB2 r6S4Kd1iIGPXZZZkjked dGQ+PXAyFHG8uLbi LQroSEAnjK9dBWIaV0o0 TvRwFoH7BGutY2TcLIFf wvloKn32zX9nAlFsJxQ3 HSyqT5ZwvjH0ZJCw hEKzTDlnUTG7I75ad8R9 HBWvVGYzCCA6gBL1nG0f bGlnbjogbGVmdDsgdmVy yCycNTuaCBjhE892 IHRvcDsnPkZlbWFsZTwv dGQ+YLLpQEF4nZbqDAfo LAOahG1rVBFkD0u5ItPj GzV3KZbwT4LmICOe hdqwLi33mW1vOzSfEyK7 UHzdK9UsweJ4JSMtaUCh JNjrBEW9W59es8D5HYWs JLVhUCD6iBH7vC4e bGlnbjogbGVmdDsgdmVy sKfoAZzsDFlcX286ZFLf pSeiYlfnWwILjr0gNQ3d ZjwvdGQ+ON77ki91 W9IwZteuBgm4YLLoZMC5 yGS6jC8jOUNgMSyiu7U2 bPH5N5GpzjMwrx7fj3fk SZQwNXtzV04iiOEz p4S1TEEcmLY4PRFuwHlf PwUkwW36Pmw+PGNvbGdy t0NiXmqso5unu3agsEm6 IjMwJSIgdmFsaWdu UCR1k1BhKb01Y21qHBxu ZHRoPSIzMCUiIHZhbGln uf5yzQ8yBm9+PGNvbCB3 qSB7uP0eHtRlFlU0 PGqvF046PlSxtHRxFyem c1vwg0hrkEk1WdZaJCHn xnJloLauIEX4x3TqDz67 E8ZkzEywj0GsFfw1 qp36zKPip4C6nKZ6E8Nd EWXjpaioePYleXbrHS5n MUAdllguISJydV9kNOHf Y6q5NdRdUmY7EAax A1QpsuQ4OCHnsHDjHFAj sAJNpJ8wepuxn8yxcqui MlOnFZTeQQb9JPy0VQGt xDprUnSqXRF0GwA1 VEW3eRRgsR4kzHboarjo aW4bHzz+VZv3i7urbZKf BC4ddGV8QT80ZI92aQAa t9M2cJW5V9QqUEQu wxdfzhshtDD1XLSgZZGs gH19Ii7pwMnySu6fXPQu VHQ2PTHjyRUlR6WbuA4m YtNvSSWgQNYvA2Kx tRNuTYtmH717CWusJlC0 CBGayyTrV0KbPDNmdJqt SnW7q7J0Rz7IES56DL06 PA32rMRzi5A4iJM4 U9EwQFWcskwqgprgjSD8 RGKoSAWmhV18Ep0xzVyd We3mPBNfTCJ8FRDgbHZz O7JwbH9gVnRiBKWh TJJxU5ZgvDYbTJxjD457 DIoqLoL6JFOufqFrD5Aa TONvnHdiPdX2u4I9Ij8N Kc57FF98EV71aFTs h1V8pOT9U7CiZXWmzbgg ydomfWK3LOZdRBGydC58 Zo8ziAlrZs4hCGCyDYF3 YZIliKAkO0OvcG5w XmTbZXTmCYFcV2CpeSUy DQozL338TMzsWwM4USLd keCyF7ZvWCRvoSshBgK4 i3L5Kb1RBNsglrl0 K6RaBgylaPH+SJ78PFYn DT93vAVrjBQdd7rkoYa3 RaFsZSQpHYA7hGpiIXgr a5PtTTHzX77qbJSu c2U6 (more content not included)... Normal [facility] Reminders 04-18-2022 Reminders - From: Lupis Turner To: EU - Clinical; Sent: 04/15/2022 15:02:18 EDT Show up: 04/18/2022 08:00:00 EDT Subject: Urine culture Reminder/Recall Urine culture done on 04/15/22 addressed by ANNITA Smalls [facility] C Urineon 04-17-2022 Bacteria identified Cx [...] Locations R1: This test was performed at: [facility], [address] [place] [address], [facility] , , [facility] Comment on above: Performed By: #### 2 [id number] ####[facility] [address] [place] [address] Coding Summary.on 03-13-2022 Coding Summary. CD:[id number] Gh0bWw+PGhlYWQ+PE1FV AUaE93mlJUidR0JM0aFZ R9YFJPXWHCREZ4RRL7ek JD4LDgrN6KqcsSi QzmbmDCaWP89YTr1GRR0 yJbdHRwucG2guMLmD4z6 HnKmXN31tE12RXcyFBBc RiD7KoQplqgckKJb X8zhPaLhgPMzDmu+PHRh YmxlIHdpZHRoPScxMDAl MoMjmTgnMR9gZu7eDPOd LWNvbGxhcHNlOiBj j3wrOVXsABahMG7rpUtb Y9WevXJ3EWTzi2q1Kf20 dHI+CSNxBJU6sVabYIln a804YeRht5zfJGO0 eBXbCKajVKK2H81qj2A3 COOlPORaJFW2wFT2gU5y qTlgjooiZ7CdvDDeSlR9 WLD4vDXyaD3tkMaf pnuojQ2rWqo+X07MWJ9U ZFVZLS8SMha5R1NtFqcv dHI+BC84AOOaZN51eXQl uMDdw6jdsEl7WpKk QUAyKUP0tIgsJTnom4Bi YSBqO99vtKZwk6M8JUNv fQsznHFjMqZbhKX4uG4u CPujjkxuk1jxgobg Isauv4ileb01cY37H63o MOkzGONhRXV3MHKeELVt hHjbez5frO4fNj1+IDxj s2mdl9bibXt1RmBg YFIkgaSuiWfvUTI4w9Jk Eh55H7OhxXlcz6TdAsg3 ui67fLEeu4V3uEU1AZol IZFmvQ1fBXvjJwA8 MBVnTsUerD77pJGxYMdc Xn5wwHvbjNxmDJ3hPRVe ajxuHYTbcD7mWRUhuEEk qWuyXD0qEJLniswj w130DoVyZXY6AWCwcMTk R2ObqE6hBcRsKFBwEMDh R4ShzBDbRPevM986QQji CzT4QANgqcZcB3Wg DQMqzFmyKkQ5z8C6Xe1F u1NcpccoNBU1JKlmMIX1 IeF8HlAgVhW8C1CwNtc5 XJUjlXuqAS6uT3Xk TWQtpmakaqoljRK9JCYw AHRazM77oMIiZPjoOi7j j4X6i432AAIwCVTwkF80 Yx4xdOfeFOHvsOJA jB2yvovtx8krmmqoRwGm KGYzIFo5ZVf1PCQufIiw NnWeGUE9RfC2NDY4vNVp aQ3xmWdqlustoP8z Oyc+C95agP6wSOK0ISO8 hhyuWPTgtbUkIW77YS28 G2OkOnwpwHCstKH+PGRp tyLzzQirXN5fNsIy a8kbg1JrNNwaN0CsCGDo FLehAdb7MOKoSHZ1rFW9 sS9cMUDeDHrnz0I7dAX0 V4LptuZeyt6jo4vj VXUqTCwgC17erAStb0F8 VPXyvLC2KZHzpEqbSnHe uE11Xka+PMObpLbif7Bj Nwwwr2dxo4kbkMh2 IjMwJSIgdmFsaWduPSJ0 j9UuTu08Y25wDIizBGOg VZBvQOSoMSUqnOqgyd3n iB8nDc4+PGNvbCB3 rUL1mK2eVIWcUdL9ULwr E837UoOriKLjThqwc5qs c1avuIl4GpKwOJZruwPo pTzmHZK0x6LxQe11 Q35dJYqtSUAtCYTkBSFp GBJwtOmskr1ytA4fEv9+ RA3so8ejhm11dV39jFS+ HRBySCC0eHsuHYiy VTFtlI6rYDnaCrT7QODc TxZqdX35cIQdMZeaZj7m nUalrMkjJZ7uFDNfxshe k855TcIic4hpXXVw eLPjALhxQYH9Q35xi2C3 SDLeWRZnZNS4iET5lR6h bGlnbjogbGVmdDsgdmVy fYlqGFdbKSbdF288 IHRvcDsnPlBhdGllbnQg CcWxTTd9X2IsWaw8TRZc rCnuHN1dpERpNVfeNz8u zMlazQbiQI0vCAOf xslqr913RyRru7lqMMCk zRUkIVzhKRY7J00zl0F5 KKDsZGHpQAW0oCX9nA5o bGlnbjogbGVmdDsg eiScySbdHUmhXLqbL709 IHRvcDsnPkJpcnRoIERh yZZ9CP05ML87kIChy6E3 wCH0H4PcNXZitili yakvfUC0OKElPBXwdT19 Vq1odIdlPj9mYQDzWRF6 GZAgvTRzX5GfoJ9oRkOy SKVsSJZsZ0ZlhXWy CMjhR161WProNpI3IZLi ieRoL3LfJIYunLoiKfY1 x0B4Zh0IA1X7OM24WK76 hMFwx8F0wTC8O2Ax NLIcevzyxnzvxZO9JMCi ZPSyiJ26Xf1yrNrrNl8j PNEoGOG2UZRjsNBsW2Xh kS8oGzYnBMUhHUJi X4SghOGeQBuxQ734VSly ChY8KOWlcfVmV6OfPHFo aNywOqB6y7M7Wv8FFDp9 CX08LG47sCEny2R3 oCW7X7SgTDPvhupfujml vHU2NGYmKUDjnS26Ie3b aFbtRa3xQHVrZRS6SXQl kNNpN2XjjB6lUhBl SADvWEVvL6JjtPMvUUtu H228YHaxOaN6NNDprcIl M6BzDFNqrRhjDqU8i9T2 Nv4JQHDxES80VGR1 gGD2WM29DB88A9VtHqdm dGFibGU+PHRhYmxlIHdp ZHRoPScxMDAlJyBzdHls VE4wQx3dSJBwKMCi gNhjrFEsFbRxj2fwEAAz UZynTY2hrBupG0XwvSY6 XVQvv6p2Gj83N41nV9Xw dXA+AGZkoIF5bTA2 lG5oGqUyRcU7QZqlT366 RyVcjVWeEhilc7ojk5eg bAl3QjY1OWXhjaXbcMwi IAV5z9TiHf60I26f IHdpZHRoPSIxNSUiIHZh iZwbew9fdZ0lJk6+PGNv tCM9rLR2tN4cMwLmMoL6 CDmzZ582BlNnzJDu Zixrt5ydq3wltOo8ScEn FTLczaXzdKtiXYH9f6Gz Pl94E4SzuKkxi5LvNmz1 cb34vCCnp6T4pOD9 G0FuJTGatltgsVVtwZih XB5oUTPsfcdxUQLscP5s QNXsE0z1JgUsEfB4QMyj F7XzigV3DUDiwHHi XWkcOFG9Z83oq0C7FAXy MWBgYBR1yLY0zA1vtNvc bjogbGVmdDsgdmVydGlj KJviRGyoU164NFUh lHnyJIUhcH1hRHWffWVw dTevPK1sJXNevujjHl5N SWCEVTHGEI3QBAmdkWS+ QKRuYRF1wSnnSNur KHOyeY3rTLVaX4i7NwYr JsS0TRexJ4RmMOWarkwr Qn40eT6qWpFsAvS4EJau R2AidgU2SENicXIj QQboJGZ8T05sr0Q2APDb RUSuCAX5cAO9gC5ycZtd bjogbGVmdDsgdmVydGlj PTmgWJvpA747DLUf nOlkApY1VhZ0ZcC6HSQ7 U7MtTqc2XURiwWveWT1l wIKgFCbcYh8qdRhokFcb MV0gTYCsifanVPQn tH6xIDLzjTMeuOpbQT3q NZEetrini231OmWcPIJ7 EJNzmWBnR2LwxO9aDhCx RPCfDDRjR0UjsCUe XJbdA845HHynAjA3RSAc yeEvZ2SaNQAtcLdbSbW3 s7V0Bd4nENYXGLGahnnz dGQ+XVWaWIN9tSgg LUpgIJMtuV7oBIYzW9y3 XeLpQrT6BDpxT8OdJCMp lyojCs69xG2oEqZoIkZ2 DGkqJ5QolkD9OSVj pPOeQYmtMYS6I90ih1S9 YIQwHCBeTQM4jYN3dY2h bGlnbjogbGVmdDsgdmVy sXruUWikDTguB099 IHRvcDsnPkZlbWFsZTwv dGQ+IDRmEBD9ePosVSns PEVoxX0cJLTdI5d3LhWp YpI7KPggJ2TcMUGc gldcPd96oL2lEsFgDiY9 MWceK4MrmiP5ZPPifNBy NVakCOV9B06mh4O9UKWg TMBcQIE8hPQ0aA5o bGlnbjogbGVmdDsgdmVy nKvtPVcaIVuuB950EDQc nElwHuudLzXYox3qTV6n ZjwvdGQ+DV57aj96 E7OsFllbXbo9CSBrMKS0 lVN2hU0pGLHvUBhmy5O6 lSO9L9LrplMaga0ut6dx FVZwOZqzZ15qeYKs r0J8MZMbfFJ7IZOzoOez FoLdpH29Ubg+PGNvbGdy i8SgGaxqo1bgv3zxuWn9 IjMwJSIgdmFsaWdu FOV7s9BaNe07G23pBLjl ZHRoPSIzMCUiIHZhbGln hy6xzX4fHv6+PGNvbCB3 gFZ3dB3tDmPyKbI1 MAmlJ669OkNpgCUfUaev z2rix2twkPf3DtVvEJVx bmAegJseKSV6v3IdNd32 P1OjhHqgz7AzIko8 gd86fRPsx0A8fWD8S9Jv EHImmliahFOzrKyoCM9g JOBlhcqnFDVgoH8tZDSq M4x7EyNxPoI3TGia S7RqmmO1DMTetRUiZQOq qUMZpX3xeehhj2ctzfqv ZvEcKWQpQUx3TMf6BTHh uZzcQfNyARH8MoQ1 SPU2pKBtnI3zcLganktc iZ5xMrh+DFk7c5boqVPx TV3tbMY3DF09HR72qYNe l0O5sKM2M0OvVSXq wwzavdqbvHM9LBDaXLSa jX49Ca3leNthVd2nBECe DCO8OJYujUXmM3JdbQ3z VbYvACOaNGXqN6Fk lACaCIhhY480KYlkKrS6 TQRvewKbZ7XlXWUmvZet ZaK6b7M1Gp3PHM66GE33 OQ19tHYss0T2tAH6 T6SxNFRugppxdnzypQZ2 XLEfKCSeoH55Ol2hnYum Cx7wDSGrOJR1ALWaxJDg N7GqfH0zUpZjTTKy ZEBxK9ZhxOVhGHmqH247 JWlfZfO2FHKvtgDkG4Uc GTRibMtgOkH0r6O7Jx6V Cj18GG90HP51hTUi d1B0zCO9K1LwTTIbawul pqivcCE6HSFzFZTahF83 Vg8coVroMe5lWLOuIUN1 QUBmvKEnE3HzaY3v TwIeSCUiDHEqM4HonBOd ELolR444UZadOtZ5LWSx xoWcV8EbCDKjtNjsGaN1 r2Q0Xc5LKBhcnrh8 J5IpMfnxlLK+JZ40NCVv TB67iCDcbKXsb9ovxUg8 GgFvZCHhDAE6aYquCIqm h5TgEEJxR06uaHCu c2U6 (more content not included)... Normal [facility] C Urineon 03-08-2022 Bacteria identified Cx [...] Locations R1: This test was performed at: [facility], [address] [place] [address], [address] , , [facility] Comment on above: Performed By: #### 2 [id number] ####[facility] [address] [place] [address] Reminderson 03-06-2022 Reminders - From: Lupis Turner To: EU - Clinical; Sent: 03/06/2022 14:52:59 EDT Show up: 03/09/2022 14:52:00 EDT Subject: UA micro, CX Reminder/Recall UA micro/culture done on 03/06/22 Normal [facility] URINALYSISOrdered By: Nazario doyle on 03-06-2022 [...] PM) Normal Negative [facility] UA Auto SS [place].plasma/Lithiu m.RBC (Bld) [Mass ratio] 0-3 /HPF Normal [...] [Mass/Vol] Negative (03/06/22 2:52 PM) Normal Negative [facility] UA Auto SS Specific gravity (U) [Rel density] 1.015 *NA* (03/06/22 2:52 PM) Invalid Interpretation Code 1.005 - 1.030 [facility] UA Auto SS UA Spec Desc Random Urine (03/06/22 2:52 PM) Normal [facility] UA Auto SS Urobilinogen Qn (U) 0.6294862 {Shan'U}/dL Normal 0.0 - 1.0 EU/dL [facility] UA Auto SS WBC Auto Ql (U) Negative (03/06/22 2:52 PM) Normal Negative [facility] UA Auto SS WBC LM.HPF (Urine sed) [#/Area] 6-15 /HPF Invalid Interpretation Code 0-5/HPF [facility] UA Auto SS Urinalysison 03-06-2022 Bacteria LM Ql (Urine sed) 2+ /HPF Abnormal Trace [facility] Comment on above: Performed By: #### 1 [id number] ####[facility] [address] [place] [address] Bilirubin Ql (U) Negative Normal Negative [facility] Comment on above: Performed By: #### 1 [id number] ####[facility] [address] [place] [address] Clarity (U) SL CLOUDY Abnormal Clear [facility] Comment on above: Performed By: #### 1 [id number] ####[facility] [address] [place] [address] Color (U) YELLOW Normal Yellow [facility] Comment on above: Performed By: #### 1 [id number] ####[address] [address] Epithelial cells.squamous LM.HPF (Urine sed) [#/Area] 3-4 Normal 0-2 [facility] Comment on above: Performed By: #### 1 [id number] ####[facility] [address] [place] [address] Glucose Test strip (U) [Mass/Vol] Negative Normal Negative [facility] Comment on above: Performed By: #### 1 [id number] ####[address] [place] [address] Hemoglobin Ql (U) Negative Normal Negative [facility] Comment on above: Performed By: #### 1 [id number] ####[address] [address] Ketones (U) [Mass/Vol] Negative Normal Negative [facility] Comment on above: Performed By: #### 1 [id number] ####[address] [address] [place].plasma/Lithiu m.RBC (Bld) [Mass ratio] 0-3 Normal 0-3 [facility] Comment on above: Performed By: #### 1 [id number] ####[address] [address] Mucus Ql (Urine sed) TRACE Normal [facility] Comment on above: Performed By: #### 1 [id number] ####[address] [address] Nitrite Ql (U) Negative Normal Negative [facility] Comment on above: Performed By: #### 1 [id number] ####[address] [address] pH (U) 7.5 [pH] Invalid Interpretation Code 5.0-9.0 [facility] Comment on above: Performed By: #### 1 [id number] ####[address] [address] Protein (U) [Mass/Vol] Negative Normal Negative [facility] Comment on above: Performed By: #### 1 [id number] ####[address] [address] Specific gravity (U) [Rel density] 1.015 Invalid Interpretation Code 1.005-1.030 [facility] Comment on above: Performed By: #### 1 [id number] ####[address] [address] Type of Urine collection method Random Urine Normal [facility] Comment on above: Performed By: #### 1 [id number] ####[facility] [address] [place] [address] Urobilinogen Qn (U) 0.2 {Shan'U}/dL Normal 0.0-1.0 [facility] Comment on above: Performed By: #### 1 [id number] ####[facility] [address] [place] [address] WBC Auto Ql (U) Negative Normal Negative [facility] Comment on above: Performed By: #### 1 [id number] ####[facility] [address] [place] [address] WBC LM.HPF (Urine sed) [#/Area] 6-15 Abnormal 0-5 [facility] Comment on above: Performed By: #### 1 [id number] ####[facility] [address] [place] [address] Consent for Procedure/Surger yon 02-26-2022 Consent for Procedure/Surgery [id number] 9#1.00CD:127 Normal [facility] RAD - MISCon 02-26-2022 RAD - MISC [id number] 8#1.00CD:127 Normal [facility] RAD - Ultrasound Reporton RAD - Ultrasound Report [id number] #1.00CD:127 Normal [facility] Ambulatory Visit Summaryon 0 02-25-2022 Ambulatory [...] Kwadwo SAEZ MD Where: [facility] Flo Smalls [facility] Patient Educationon 02-26-20 Patient Education Urology [...] these instructions at home: Medicines ? Take numn-lmo-bophdnl and prescription medicines only as told by [...] 04/13/2009 Document Revised: 03/13/2020 Document Reviewed: 03/13/2020 [employer] Patient Education ? 2019 [employer]. [facility] Urology Office/Clinic Noteon 02-25-2022 Urology [...] urine The Urethra was dilated to: 18-30_ English with sounds. urethra bled. dry. Removal: Cystoscope [...] EDT [facility] [address] [place] [address]- Additional Instructions: Patient Education Kidney Stones, Pjcu-qm-Xqkt Devonte Nickerson personally scribed for Dr. Saez [...] Results Tests Reviewed: Reviewed UA. [facility] Comment on above: Result Comment: Elec tronically Signed By: Kwadwo SAEZ MD R\.br\Date and Time Signed: 02/25/22 15:21 EDT\.br\Electronically Co-Signed By: Devonte Echeverria\.br\Date and Time Co-Signed: 02/25/22 15:19 EDT Pre-Certification Formon Pre-Certification Form [id number] 0#1.00CD:127 [facility] Reminderson 02-10-2022 Reminders - From: Kristyn Echeverria MA To: EU - Clinical; Sent: 02/04/2022 16:03:36 EDT Show up: 02/08/2022 16:03:00 EDT Subject: Urine Culture Reminder/Recall Urine culture Pt is currently . ANNITA addressed [facility] C Urineon 02-07-2022 Bacteria identified [...] Locations R1: This test was performed at: [facility], [address] [place] [address], [address] , , Normal [facility] Comment on above: Performed By: #### 2 [id number] #### [facility] [address] [place] [address] Performed By: #### 2 [id number] ####[facility] [address] [place] [address] Coding Summary.on 02-07-2022 Coding Summary. CD:[id number] Gh0bWw+PGhlYWQ+PE1FV RPkZ66mbOGrqQ5OS7cCD E9IXVPXWIVDIH2XHH7vm LL5YLeeL9BbsyUh OnxinNYbXQ89ZKt0BLB4 pCtsPXijjG2ldGAaP6w6 GcBzTT64lQ50CPdcXMSg BlY2DmHxdsrdkQJu L2ioBjZxqICmEny+PHRh YmxlIHdpZHRoPScxMDAl OnGjhKlxCC1vPx3tHIWg LWNvbGxhcHNlOiBj o4ezVTRwAYezCB4zzEpd B5YyvNL2RVQbf1l2Zy78 dHI+MUFxZDT4dVgoJLmi b294TeCae1liIZD4 rNDeOLthWRQ3G29du9F8 SXQmDPFpNRK1mFY9uF8v eMbzpsslH5BtuOQyZqQ1 HSU1qVTdpR7zzBml lxkfqC1rXyu+I28YBE6A MMHJJP5DMja5S4VrGosf dHI+TY38DLGyOQ33qZNs eGKbp3xrbSg6BxZm OKWdURN9pOjiWEcui9Ga VBMbD22vzHRnr9E0VAWf lJbncVNfOdRsdLS1eN2y LIdudauih7nombez Jyryd3iihl31vE72X07z PKayFHZjBVI3MHSsRFCc xLwzmr5ozY3aZd0+IDxj v5fvi6pciFz5PoOw EQVbkjYdcRezCXY8o0Aa No53Z2TcmLviv5DbOie1 mw79sCZop3I6hQP9MKtz NCDtwQ5sQGktBgG2 KGFoFcLutP88qOZsHMmk Pi1mbKtuvOqqGU6gDZPh vpdbOCBvgQ9lBGDygUZa nXjsOS4gTBGsjoba d890QdUtOHV3ANGvcCCk R8JsyO2xCjBoFYGkIDCt C9UkpKLcUCcnB821TSea GyR1GHHwmwDbW9Jt BKJonQssWlM1p7X7Gf6X l7QuihbkCAL6PViwDHCx UpCiGkMpFjZ6V1OtHud3 VNIfeRcpMB0eX8Eq TXPlsebfrrbvgTE1OYNx LGOizW86kYDfUTjqOd1o l7T9q906SAShCKGmkK99 Wj6pxMdxDACdqAMC tJ1oszngy4rocifaIpUl LNDjAWr1TMi6FERiyElz EsQmREB7YgH0ZET0hALk eZ5anGvzhnsbsC7f Oyc+V56tkN7dNZC6UBK5 hmjlYOJsvxLdCO59RR55 M3BlUbhigKTwlCI+PGRp kzBhgPyxEO7mVzYh w0wmm1IzONmkN5MaIUIu OXiiLhg9RJEoVKN6pRA6 bY4wCWJdAYkjp4T7fUP9 F7KudaYpgs9wq4tg GYRzWEenF24vwIYlp3T1 ZYOjiAU3ECTomAadDpQs dE21Yvj+OHGgzIkit0Qx Yblwf5qem3mtdBf0 IjMwJSIgdmFsaWduPSJ0 o2MhSu10S79uLDojBGKt SFMxWUUiUQDnqPtvmd1b lW6dPw4+PGNvbCB3 vQY7eY8qKJTpWpF2CZhv F115YyIbvRQuWoqkn0es d4yedRt7SpRkQVBfipUu oXvjNRR3h9VzDx82 M27wFQxlHHMwWIKaFYWa BWYrdZgvcp6cbY9qIk1+ PG0rs5ijww20zJ64gVN+ DJUaGAH2pLahJJbp PDSogO5iPQohGyS6ILRd HkJiwN09cGBfTDyiXi4z vPoshNacWL7yUERjturm u168HaSgq3sbXZPy fZOwCJqoJIT7V34rw7Q0 MAHgBMEjILA1yNO4hW0p bGlnbjogbGVmdDsgdmVy dRrqMGyhHZdvD825 IHRvcDsnPlBhdGllbnQg XfThWCr3J0LuSfv7XVQc cAegFM0zfZUzUTcfYw3p uPuiiPwqUA1nTKSj znezi337JqRnt8vkSNLp fRRiXTiiUHK1K91sn7E8 BZZlYSYeKLZ0tHN4kE4n bGlnbjogbGVmdDsg xpLknCtgARstBPglY625 IHRvcDsnPkJpcnRoIERh tXR0PN36RD14zDSpy8R1 rVN4D1EyMRYjulqn vyuwoZX5JYYzBHMtnJ47 Ms4xfAwcTf7bJAEuJGL8 NAXjvDAgN8CmaR2pEcEf KSSvKLYlL8IytYNq XYdyD677UFpnPeT9SPAi kiIjL0PbNJLhiQbtNwH1 o6R6Dg1RM4D9TZ75EH41 tIXjq7Y7vDB0N0Ur ZOBgvzxmwbelgXY0OXWp RHJzeO99Hl4mlUpmHu1s GWDuUZB4SNTywWAzZ8Wq cY7aTxDzQWRoWXUa Y3TxeBRoPAnlO117QWzm MgC1QFFdjhUhD3OxPXMo mMzhUyB7i0D0Bt6FSSd5 ZQ47IL55fLXvj2S3 xXR0Z6XoOSIwmvrecohl oPU5XETtBYRkyY18Ac0h wKrpAm0gYBPjGON9JMNy wLNjW5BfpE8uKmDw PWHnDPLvL4NvyVUjGUfq C335MHadUxP7TZUllyEt T9PwFWDjdSjcUjX1u3P5 Gh2LKPJxLF13RGN0 uEM6OR40BC40T0PlQoit dGFibGU+PHRhYmxlIHdp ZHRoPScxMDAlJyBzdHls XA4kGl2jKFTjBBUh vWvxjQWaBjRes1kaICZq MMioTE4htSpvT6IdlOP0 BKWmz8o5Zr25Z13mP1Vn dXA+QAInyIA6cIA3 fC3eLgVbSuA7YAtzB935 SbVdrBTcQbyfi7cpr1xb nHm4NlK1KLEochGidIss KRZ3b2KbSe53R66v IHdpZHRoPSIxNSUiIHZh hYcxdn6emD5kMf0+PGNv fJT5lVY5zY1yPyTzYqF4 LJdnX361XpQjgLWh Wjkys1eye5kviDy7CaRg MSVzafKmjAirGLK1d2Db Lc06F6IyfHrgq7IfNna3 ne39qYTcc3G8cBK3 Y3GvQUOgwzasdEFipNrf EF1yVMYtlljeHOThkO7a HROcM8v8YbGnApU3WOdv K8WzwnN2ZRCpgHPy QUizJVR6S55kt3P4KLYb NCWrMCG7zBC1lX4lmMes bjogbGVmdDsgdmVydGlj GYltQNlxK084YERs eFwzOKQtiA5wEWUumUBl tBeyME8jMIGqnuymQz7C IAZMBXMESS4WCFulaNY+ QEXtXHP4wSknYYnd KYYisT6qAGLeO4p4RpWt MsQ6SFhtC5HcMNWizgzw Mw45cM0tIrNoJrT6ERcr H6UemnE8RRFgaSJp CWfnSCJ4W40em9Z1PECb IRRfZKH5hWJ0nP1fjApu bjogbGVmdDsgdmVydGlj VSswYFffZ623OQMe pHmcWxV3ZhN5FpY9HTD8 T3WwXzu2MYHniZlsWP5f mGTaPQjfXy9txSqebWii CE7uGDQwpclwVUEr vI7mTOKojBQpiJhyKZ5s IRHhyinyi749FbVfSQN7 SDCjvLKeX9FbhR6vAwHq VYDxWLUlH7ZniQXr JWzsP223AOagKlG8OXLy ysLyB2HhQFPloUpgSxH5 h7K9Nj3wFJOLJRBzesty dGQ+QJYqKHT7iLuk MAiyDJSsbF3wTHJyI7c3 GwWcYnU9TVgcP3YtBOIo qqoqKi88eL4oZuYoVtO6 VUtuS7UumaU7YWLx kBKiIIscSOO5H92ys5Z1 CABdKKSnGVL5iUJ2kT9v bGlnbjogbGVmdDsgdmVy aAqdPShuXHnpJ081 IHRvcDsnPkZlbWFsZTwv dGQ+RQPrEEZ9kGlcFRnr OKVgyY6cYNRcP8k4BzBl SmJ3BCajQ3BtRKTl zrcqKk18rC3xXyMxVzS8 SJgfH6QvigH2OYBpgKPy PGdlOMT5J53qg6C1BTLl WYReXNX5eSY9tG3l bGlnbjogbGVmdDsgdmVy vZkwYPmeCCydU731CZIo lTjyIjvmDfJPvc6uTL9j ZjwvdGQ+AK12sc34 K3WbBtqxCwj1GVEaQBH5 bVK3vS4rIDQpJMdcx7T8 cAY4S5OohhDjhs6oc6xc TPBcIHcuZ18otROa b6L6LNKjpHI1WFOxvXko WbFdkM66Uol+PGNvbGdy b3CiXxgpk1zio5oaaRh5 IjMwJSIgdmFsaWdu XRN8z9LtId01C77fOIgt ZHRoPSIzMCUiIHZhbGln cc5fqX5pVl2+PGNvbCB3 rWF2kE2vMmYgZgR6 PDufQ135XpAwrLWhDbcn p1xbz1mnyVc0VjZiZRZt qyXjtUbuWEW2l2LpEc52 C9GxfUbti1XeOji1 vg53bURtr4V9xHQ0L9Il WBProlirwIDycUwqDN3e KRHomgtqKWYryG1kFKNq F8u5KgFeFzQ3NBnc F8HyzeM1MLLacEDqDFIe wVUNzV4ptygrt2uiodka ZfNaWFHkJUg2JTv2JYWg bBuxOmRjZRN7WhY1 AXM4nDPjdN8mhLwfwbkf eL8nQae+LNm4r7nmhVIw WT7qhRM2NR18CA69vMVl q4X6uQB4A4CiRFCu gosdfeawcZZ4OJXdCPHy rG48Mx2rxRtaAb0wJVXw NBV2VLHlmKXyP8IvpP1t XzMmSOZdYLVbD5Qe qBJoKDetI591DOwsCqB9 DVHdvtFdE8RmNBYlzTsg VwE5q7U0Fs0ADZ11BK38 GR05qKIzm8Y5wPY7 B4QgSCMrwxkeextjdKH5 NMKnKHGjsQ97Vq9wqRsg Yg7pTVXuCBW2EWIfdZLq F9EykD5pSrNcYUGz KIWcN3BjvIBsZWleO784 KMqcNlV4ZTJlyjUhW8Mt BZGuaHisBzC9f4K3Je1I Ht88UJ87PT92wXZi b3Q0zCO8K9DpPWSrsabq jfvbjNQ0HZDiKQHvvX35 Pb3usEagZd3oEQXpIOC1 OAZhyLLuE9MllW3m PoBfZUNgAUQsB9WauDAz PDozS084NHyeRnX0NPOu fzYyI3QnJKQqgDbgClE5 x9T0Qm9NNOtjkge5 Z6QfXgqotFC+WE53HOAm WP43sNFbbRSkz0dyuPo0 JoFiEPUlJNI6uVvjJRcl d4ZsXZOhM52bhQPt c2U6 (more content not included)... Normal [facility] US renal BIon 02-07-2022 US renal BI [place] [address] Ultrasound Report Signed Patient: Jessa Chatman MR#: [id number] 9 : 1985 Acct:[id number] Age/Sex: 36 / F ADM Date: 02/07/22 Loc: Room: Type: [facility] Attending Dr: Saida Abad PA-C Ordering [...] DO 02/07/22 1522 Signed By: 02/07/22 1524 [facility] XR KUBon 02-07-2022 XR KUB [facility] [place] [address] [place] [address] XRay Report Signed Patient: Jessa Chatman MR#: [id number] 9 : 1985 Acct:[id number] Age/Sex: 36 / F ADM Date: 02/07/22 Loc: Room: Type: [facility] Attending Dr: Saida Abad PA-C Ordering Provider: Saida Abad PA-C Date of Service: 02/07/22 XR/XR KUB: ABD PAIN Copies to: Sadia Abad PA-C Single view of abdomen COMPARISON: None HISTORY: Chronic UTIs. Crowding. Nondistended air-filled small bowel loops identified. 4 mm RIGHT to inferior renal calculus identified. No ureteral calculus. Pelvic vascular calcifications. 3 mm LEFT nephrolithiasis. No soft tissue mass seen. Bony structures are intact. XR/XR KUB IMPRESSION: Bilateral nephrolithiasis. Impression dictated by: Mark Stark M.D.02/07/2022 3:13 PM Dictation Location: [facility]13 Transcribed By: KARI 02/07/22 1513 Dictated By: Mark Stark DO 02/07/22 151 Signed By: 02/07/22 151 [facility] Patient Educationon 02-05-20 Patient Education Pharmacology [...] Trouble breathi (more content not included)... Normal [facility] Urology Office/Clinic Noteon 02-04-2022 Urology Office/Clinic Note Chief Complaint referred for recurrent UTI. HPI Staff Jessa is here today as a new patient referred by Herve FACSIMILE OPERATOR for recurrent UTI.Started Cleocin 300mg on 12/24/21 [...] on Cleocin x 7d in Dec per [employer]. pt has not noticed any connection with [...] baths & hot tubs, avoid any scented [employer] products, urinate after sexual activity, etc) PVR [...] E&M of New Patient Moderate 45-59 Min 92797 Urnls Dip Stick Auto w/o Microscopy POC [id number] US Renal XR Abdomen 1 View Orders: [...] Protein Urine Dipstick: Negative (02/04/22 14:41:00) Specific [place] Urine Dipstick: 1.025 (02/04/22 14:41:00) Urine Appearance Urine Dipstick: (more content not included)... Normal [facility] Comment on above: Result Comment: Elec tronically Signed By: SAIDA ABAD PA-C.br\Date and Time Signed: 02/04/22 16:12 EDT Vital Signs Date Time Vital Sign Value Performing Clinician Facility 06-25-2022 09:14-0400 Blood Pressure Location Jalen Mora [facility] 06-25-2022 09:14-0400 Diastolic blood pressure 86 mm[Hg] Jalen Mora [facility] 06-25-2022 09:14-0400 Heart rate 77 /min Jalen Mora [facility] 06-25-2022 09:14-0400 Systolic blood pressure 130 mm[Hg] Jalen Mora [facility] 06-18-2022 10:45-0400 Body height 162.56 cm Devin Lam Other [email or web address] Other 06-18-2022 10:45-0400 Body mass index (BMI) [Ratio] 28.49 kg/m2 Devin Lam Other [email or web address] Other 06-18-2022 10:45-0400 Body weight 75.3 kg Devin Lam Other [email or web address] Other 06-18-2022 10:45-0400 Diastolic blood pressure 76 mm[Hg] Devin Lam Other [email or web address] Other 06-18-2022 10:45-0400 Respiratory rate 16 /min Devin Lam Other [email or web address] Other 06-18-2022 10:45-0400 SaO2% (BldA) [Mass fraction] 99 % Devin Lam Other [email or web address] Other 06-18-2022 10:45-0400 Systolic blood pressure 118 mm[Hg] Devin Lam Other [email or web address] Other 05-13-2022 16:00-0400 Body height 162.56 cm Devin aLm Other [email or web address] Other 05-13-2022 16:00-0400 Body mass index (BMI) [Ratio] 29.73 kg/m2 Devin Lam Other [email or web address] Other 05-13-2022 16:00-0400 Body weight 78.56 kg Devin Lam Other [email or web address] Other 05-13-2022 16:00-0400 Diastolic blood pressure 68 mm[Hg] Devin Lam Other [email or web address] Other 05-13-2022 16:00-0400 Respiratory rate 16 /min Deivn Lam Other [email or web address] Other 05-13-2022 16:00-0400 SaO2% (BldA) [Mass fraction] 97 % Devin Lam Other [email or web address] Other 05-13-2022 16:00-0400 Systolic blood pressure 114 mm[Hg] Devin Lam Other [email or web address] Other 04-16-2022 10:30-0400 Body height 162.56 cm Devin Lam Other [email or web address] Other 04-16-2022 10:30-0400 Body mass index (BMI) [Ratio] 30.72 kg/m2 Devin Lam Other [email or web address] Other 04-16-2022 10:30-0400 Body weight 81.19 kg Devin Lam Other [email or web address] Other 04-16-2022 10:30-0400 Diastolic blood pressure 80 mm[Hg] Devin Lam Other [email or web address] Other 04-16-2022 10:30-0400 Respiratory rate 16 /min Devin Lam Other [email or web address] Other 04-16-2022 10:30-0400 SaO2% (BldA) [Mass fraction] 99 % Devin Lam Other [email or web address] Other 04-16-2022 10:30-0400 Systolic blood pressure 130 mm[Hg] Devin Lam Other [email or web address] Other Encounters Encounter Date Encounter Type Care Provider Facility Start: 10-28-2023 End: 10-28-2023 ambulatory MOUNA LUIS M Not Available Start: 10-23-2023 End: 10-23-2023 ambulatory [facility]: [facility]23 End: 10-08-2023 ambulatory MOUNA LUIS M Not Available Start: 09-23-2023 End: 09-23-2023 ambulatory MOUNA ANGEL Not Available Start: 04-15-2023 End: 04-15-2023 ambulatory Devinkye Arroyoelias Other [email or web address] Other Start: 04-15-2023 Telephone encounter Devin Lam [facility] Start: 01-19-2023 End: 01-19-2023 ambulatory Devin Lam Other [email or web address] Other Start: 01-19-2023 Telephone encounter Devin Lam [facility] Start: 12-19-2022 End: 01-07-[address] MOUNA ANGEL . Facility:[facility] Start: 12-05-2022 End: 12-06-[address] MOUNA ANGEL . Facility:[facility] Start: 11-19-2022 End: 11-19-[address] MOUNA ANGEL . Facility:[facility] Start: 11-16-2022 Encounter for preprocedural laboratory examination DR MOUNA ANGEL . [facility] Start: 11-13-2022 End: 11-14-[address] [...] encounter procedure Dasia Addison [facility] Start: 06-25-2022 End: 06-25-2022 Patient encounter procedure Jalen Mora [facility] Start: 06-18-2022 End: 06-18-2022 ambulatory Devin Genaro Other [email or web address] Other Start: 06-18-2022 Office outpatient vi sit 15 minutes Devin Cruzs [facility] Start: 05-13-2022 End: 05-13-2022 ambulatory Devin Cruzs Other [email or web address] Other Start: 05-13-2022 Office outpatient vi sit 15 minutes Devin Cruzs [facility] Start: 04-16-2022 End: 04-16-2022 ambulatory Devinkye Arroyos Other [email or web address] Other Start: 04-16-2022 Office outpatient vi sit 25 minutes Devin Cruzs [facility] Start: 04-15-2022 End: 04-15-2022 Lab Drop off SAIDA ABAD [facility] Start: 04-15-2022 End: 04-15-2022 Patient encounter procedure Kwadow SAEZ [facility] Start: 03-06-2022 End: 03-06-2022 Lab Drop off Kwadwo SAEZ [facility] Start: 03-06-2022 End: 03-06-2022 Patient encounter procedure Ravinder MCCAULEY [facility] Start: 02-04-2022 End: 02-04-2022 Lab Drop off SAIDA ABAD [facility] Procedures Date Procedure Procedure Detail Performing Clinician Start: 11-09-2013 Colonoscopy and biop sy of colon Kwadwo SAEZ Start: 11-09-1989 History of tonsillectomy Kwadwo SAEZ Start: 11-09-1989 Tonsillectomy SAIDA ABAD Start: 11-09-1989 Tympanotomy SAIDA WAKEFIELD Immunizations Immunization Date Immunization Notes Care Provider Fa cility 11-09-2020 SARS-CoV-2 mRNA (tozinameran 5y-11y) vaccine Jalen Mora [facility] Comment on above: Result Comment: 2 [facility] 03-10-2015 tetanus toxoid, reduced diphtheria toxoid, and acellular pertussis vaccine, adsorbed Kwadwo SAEZ [facility] Comment on above: Reason for Medicatio n: Other (see comment) NEGATED: Highlighted row has not occurred!02-19-2019 influenza, seasonal, injectable Patient Objection Devin Lam Other [email or web address] Other Payers Date Payer Category Payer Unknown [id number] 2.16.84 [id number] 1985 Unknown [id number] 2.16.84 [id number] 1986 Unknown [id number] 2.16.84 [id number] 1986 Unknown [id number] 2.16.84 [id number] 1986 Unknown [id number] 2.16.84 [id number] 1986 Unknown [id number] 2.16.84 [id number] 1986 Unknown [id number] 2.16.84 [id number] 1986 Unknown [id number] 2.16.84 [id number] 1986 Unknown [id number] 2.16.840 .[id number] 1986 Unknown [id number] 2.16.840 .[id number] 1986 Unknown [id number] 2.16.840 .[id number] 1959 Unknown [id number] 2.16. [id number] 1959 Unknown [id number] Social History Date Type Detail Facility Start: 02-04-2022 End: 02-25-2022 Tobacco smoking status Never smoked tobacco (finding) [facility] Tobacco smoking status Never [facility] Sex Assigned At Female [facility] Functional Status Date Assessment Result Facility 06-25-2022 Functional Status N/A [facility] Clinical Notes 02-04-2022 to 10-23-2023 Note Date & Type Note Facility 10-23-2023 Note F/U with OB and mate rnal medicine as scheduled [facility] 10-23-2023 Note [facility] CARDIOLOGY PROGR ESS NOTE HPI: Jessa Chatman is a 38 y.o. female here for tachycardia during Patient here per Dr. Angel for tachycardia in . She is currently 32w5d along. FACSIMILE OPERATOR started her on metoprolol tartrate 25mg daily [...] scheduled RTC 2-3 months or as needed [facility] 10-23-2023 Note Patient here per Dr. Angel for tachycardia in . She is currently 32w5d along. FACSIMILE OPERATOR started her on metoprolol tartrate 25mg daily a few weeks ago, which as helped with palpitations. HR gets as high as 147 at rest sometimes. This issue went away after the of her last baby. Review of Systems Cardiovascular: Positive for dyspnea on exertion. Neurological: Positive for light-headedness. All other systems reviewed and are negative. [facility] 04-15-2023 Evaluation note Encounter Date Diagnosis Assessment Notes Apr, Spontaneous rupture of tympanic membrane of right ear concurrent with and due to acute suppurative otitis media (ICD-10 - H66.011) [email or web address] Other 01-11-2023 NoteOPERATIVE NOTE OPERATION DATE: 11/19/2022 PROCEDURE: Suction D AND C. PREOPERATIVE DIAGNOSIS: Missed first trimester. POSTOPERATIVE DIAGNOSIS: Missed first trimester. ANESTHESIA: General. SURGEON: Mouna Angel D.O. WAITER/WAITRESS CAFETERIA: None. FINDINGS: Products of conception. SPECIMEN: Products [...] products of conception were removed using a 9-English suction curette. Excellent hemostasis was noted. The patient tolerated the procedure well. Sponge, lap, and needle counts were correct x 2. All instruments were then removed from the patient's vagina. The patient was taken to the Recovery Room in stable condition. [id number] + Plan note Diagnostic Tests Pending * UTI ([facility]) 07/03/22 [facility] 08-17-2022 Hospital Discharge instructions [...] Follow these instructions at home: Medicines Take dhas-jeq-pbnypaz and prescription medicines only as told by [...] 10/26/2006 Document Revised: 03/13/2020 Document Reviewed: 03/13/2020 [employer] Patient Education 2019 [employer]. 06/25/2022 09:59:21 Urinary Tract Infection, Adult Urinary [...] Treatment for this condition includes: Antibiotic medicine. Lhmr-lcc-mwtdqhm medicines to treat discomfort. Drinking enough water [...] Follow these instructions at home: Medicines Take cwgs-jjs-rwrbspg and prescription medicines only as told by [...] 08/05/2006 Document Revised: 10/13/2019 Document Reviewed: 05/05/2019 [employer] Patient Education 2020 [employer]. [facility] 08-10-2022 Evaluation note* Encounter Date Diagnosis Assessment [...] that she can go off it completely. [email or web address] Other 07-05-2022 Evaluation note* Encounter Date Diagnosis [...] calf. I recommened a consult with a safety sitter. Patient would like to hold off on the referral for now. [email or web address] Other 06-08-2022 Evaluation note* Encounter Date Diagnosis [...] or any other dysrhythmias. She voices understanding [email or web address] Other 03-29-2022 Evaluation + Plan note Diagnostic Tests Pending * [facility] Future Appointments Appointment Date:07/02/2022 02:45:00 PM Scheduled Provider:Kwadwo SAEZ MD Location:[facility] Appointment Type:URO Office Visit [facility] Evaluation + Plan note Future Appointments Appointment Date:07/02/2022 02:45:00 PM Scheduled Provider:Kwadwo SAEZ MD Location:[facility] Appointment Type:URO Office Visit Diagnostic Tests Pending * Urine Culture [facility]06[facility] Future Appointments Appointment Date:07/02/2022 02:45:00 PM Scheduled Provider:Kwadwo SAEZ MD Location:[facility] Appointment Type:URO Office Visit Diagnostic Tests Pending * [facility]rine [facility]22 [facility] Other History general Narrative - Reported* Type Description Date Medical History Anxiety Hospitalization History childbirth [facility] Other Hospital course Narrative No data available for this section [facility] No data available for this section [facility] No data available for this section [facility] Summary Purpose Family History No Family [...] (H66.011) Referral Organization [facility] Referring Provider First Name Devin Referring Provider Last Name Genaro Referring Provider Specialty Family Prac brittanie Referred Organization [facility] Referred Provider Aldo Bolanos Referred Address ,[place], [place],[address] Referred Provider Specialty Otolaryngolo gy Referral Priority Routine General Notes Fore, Higinio M 023 12:56:47 PM >Received today. [facility] request us to send the referral and they will call and schedule patient. Referral was fax Clinical Notes Office [phone] Additional Source Comments INFORMATION SOURCE (unrecogn ized section and content) DATE CREATED AUTHOR 02/26/2022 [facility] DATE CREATED AUTHOR AUTHOR'S ORGANIZ ATION 07/04/2022 [facility] DATE CREATED AUTHOR AUTHOR'S ORGANIZ ATION 07/05/2022 [facility] DATE CREATED AUTHOR AUTHOR'S ORGANIZ ATION 01/21/2023 [facility] DATE CREATED AUTHOR AUTHOR'S ORGANIZ ATION 10/25/2023 [facility] DATE CREATED AUTHOR AUTHOR'S ORGANIZ ATION 10/29/2023 [facility] EPIC REASON FOR VISIT (unrecogniz ed section and content) weight management/ UTI4 week follow up-weight mgmt.1 month Follow up weight managementClinicalClinical Care Team (unrecognized sect ion and content) Personnel Name: DEVIN LAM DO Address: [address] [place] [address] Personnel Name: DEVIN LAM DO Address: [address] [place] [address] FOR RECORDS PERTAINING TO PATIENTS WHO ARE [...] BE BASED ON THE PRIMARY CLINICAL RECORDS. [facility] [employer] [facility]. provides no warranty or guarantee of the accuracy or completeness of information in this document.
--- NOTE | 2023-11-16 09:24 | US_ITS ---
[address] [address] Patient Name: BONILLA KUMAR MRN: [id number] date: 1985 Sex: F Assigned Patient Location: [facility] Current Patient Location: [facility] Accession/Order Number: [id number] Exam Date: 11/16/2023 09:30 Report Date: 11/16/2023 10:03 At the request of: MOUNA ASENCIO Procedure: US OB BPP w non-stress EXAMINATION: US OB BPP w non-stress HISTORY: Multigravida of advanced maternal age COMPARISON: No relevant comparison available. TECHNIQUE: Ultrasound biophysical profile was performed in the radiology department. non-reactive stress testing was performed by nursing staff in the birthing center. FINDINGS: BREATHING MOVEMENTS: 2.0 GROSS BODY MOVEMENTS: 2.0 TONE: 2.0 QUALITATIVE AMNIOTIC FLUID VOLUME: 2.0 PRESENTATION: CEPHALIC HEART RATE: 155.2 bpm H.B./min AMNIOTIC FLUID VOLUME: 15.4 cm cm GESTATIONAL AGE: 36 weeks 0 days CONCLUSION: Total biophysical profile score: 8.0 Electronically authenticated by: ERROL VELA Date: 11/16/2023 10:03
--- NOTE | 2023-11-16 09:24 | US_ITS ---
[address] [address] Patient Name: BONILLA KUMAR MRN: [id number] date: 1985 Sex: F Assigned Patient Location: [facility] Current Patient Location: Accession/Order Number: [id number] Exam Date: 11/16/2023 09:30 Report Date: 11/16/2023 11:04 At the request of: MOUNA ASENCIO Procedure: US OB umbilical artery EXAMINATION: US OB umbilical artery HISTORY: Multigravida of advanced maternal age COMPARISON: No relevant comparison available. TECHNIQUE: Duplex Doppler evaluation of the umbilical arteries. FINDINGS: position: Cephalic Heart rate: 146 bpm Proximal umbilical artery PSV/EDV: 110/40 cm/s. Resistive index 0.64. Ratio 2.7 Mid umbilical artery PSV/EDV: 76/35 cm/s. Distal index 0.54. Ratio 2.2 Distal umbilical artery PSV/EDV: 61/37 cm/s. Resistive index 0.39. Ratio 1.6 Forward flow identified throughout diastole US/US OB umbilical artery IMPRESSION: Normal exam. Class 0 Umbilical Artery: Class 0 = Normal umbilical artery blood velocity Class I = increased RI or PI, but still forward flow in diastole Class II = Absent end diastolic flow (AEDF) Class III = Reversal of end diastolic flow (REDF) Resistive Index (RI)<1 Systolic/Diastolic ratio (S:D): An S:D ratio of 2-3 after 34 wks is normal Systolic/Diastolic ratio (S:D): Age 16: 3.01 for the 10th percentile, 4.25 for the 50th percentile, 6.07 for the 90th percentile Age 20: 3.16 for the 10th percentile, 4.04 for the 50th percentile, 5.24 for the 90th percentile Age 24: 2.70 for the 10th percentile, 3.50 for the 50th percentile, 4.75 for the 90th percentile Age 28: 2.41 for the 10th percentile, 3.02 for the 50th percentile, 3.97 for the 90th percentile Age 30: 2.43 for the 10th percentile, 3.04 for the 50th percentile, 3.80 for the 90th percentile Age 32: 2.27 for the 10th percentile, 2.73 for the 50th percentile, 3.57 for the 90th percentile Age 34: 2.08 for the 10th percentile, 2.52 for the 50th percentile, 3.41 for the 90th percentile Age 36: 1.96 for the 10th percentile, 2.35 for the 50th percentile, 3.15 for the 90th percentile Age 38: 1.89 for the 10th percentile, 2.24 for the 50th percentile, 3.10 for the 90th percentile Age 40: 1.88 for the 10th percentile, 2.22 for the 50th percentile, 2.68 for the 90th percentile Age 41: 1.93 for the 10th percentile, 2.21 for the 50th percentile, 2.55 for the 90th percentile Age 42: 1.91 for the 10th percentile, 2.51 for the 50th percentile, 3.21 for the 90th percentile Uteroplacental Artery: Resistive Index (RI): Normal=<0.55 High Resistance=Bilateral notches (after 26 wks) and RI>0.55. Unilateral notches (after 26 wks) and RI>0.65 Systolic/Diastolic ratio (S:D) = 2-3 is normal after 32 weeks. Electronically authenticated by: ERROL VELA Date: 11/16/2023 11:04
[2023-11-16 09:53] VITALS: BP 134/80; PULSE 90
== END 2023-11-16 10:32 | disposition home or self-care (01) ==
LOC: US 07:12 → FBC 09:20
PROVIDERS: Visit Provider Obstetrics & Gynecology
DX: O09.523 Supervision of elderly multigravida, third trimester (principal); Z3A.36 36 weeks gestation of pregnancy
CPT/HCPCS: 76818; 76820; 87081

== ENCOUNTER 2023-11-16 22:27 | Outpatient (REF) | payer BC, SELFPAY ==
--- OUTSIDE RECORDS SUMMARY | 2023-11-16 22:43 | XMS_ITS | CCD ---
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 Role Phone DEVIN LAM Primary Care [...] Translations: [acetaminophen-hy drocodone] Drug Allergy Nausea (finding) [facility] (13 sources) Banana Extract; Translations: [Banana] Drug Allergy 09-10-20 Itching (finding) [facility] (8 sources) Melon; Translations: [melon] Drug allergy 09-10-20 20 Itching (finding) [facility] (5 sources) Melon Propensity to adverse reactions Unknown [employer] Other (1 source) Acetaminophen / HYDROcodone Drug Allergy 09-10-20 20 [facility] Repository (1 source) Acetaminophen / HYDROcodone; Translations: [HYDROCODONE-ACET AMINOPHEN] Drug Allergy 04-10-20 21 [facility] Repository Medications Current Medications Medication Drug [...] day(s), # 90 cap(s), Refills(s) 0, Pharmacy: [facility] [id number] [facility], 162, cm, 02/25/22 14:21:00 EDT, [...] procedure, # 2 cap(s), Refills(s) 0, Pharmacy: [place] [address] [facility], 162, cm, 02/04/22 14:57:00 EDT, Height/Length Dosing, 75, kg, 02/04/22 14:57:00 EDT, Weight Dosing Start Date: 02/04/22 Status: Ordered citalopram 20 mg oral tablet (10 sources) Serotonin Reuptake Inhibitor Start: 02-04-2022 take 1 mg by mouth once daily CeleXA 20 mg Tab mg tab(s), Oral, Daily, Refills(s) 0 Start Date: 02/04/22 Status: Ordered take 0.5 tablet by [facility] every twenty-four hours Citalopram Hydrobromide 20 MG 0.5 tablet Orally Once a day Active Docusate (9 sources) Start: 02-04-2022 take 1 mg by mouth twice daily Dulcolax Stool Softener mg, Oral, BID, Refills(s) 0 Start Date: 02/04/22 Status: Ordered Start: 03-09-2015 take 1 capsule by mo [facility] twice daily as needed for constipation [...] 06/25/22 Status: Ordered take 1 capsule by [facility] once daily at bedtime Macrobid 100 [...] 10 day(s), 20 tab(s), Refill(s) 0, [facility] [id number] [facility], 162, cm, 02/25/22 14:21:00 EDT, [...] Range Facility Office Visiton 10-23-2023 Follow-up visit [id number] Jessa Chatman 1985 F Date Provider Department Center 10/23/2023 ARACELI COCHRAN CARD [facility] No family history on file Level of Service:87037 DE OFFICE/OUTPATIENT ESTABLISHED MOD MDM 30-39 MIN Normal [facility] PROGRESSon 10-23-2023 Beta HCG ( test) [...] voiced understanding of risks. Normal [facility] PREG QUANT HCGon 12-19-2022 HCG QUANT 5 mIU/mL Normal [facility] Comment on above: Performed By: #### P REGQNT #### [facility] [address] [place] [address] Dr. Fadi Meza HCG RANGE SEE BELOW Normal [facility] Comment on above: Result Comment: 5-50 0.2-1 WEEK 50-500 1-2 WEEKS 100-5,000 2-3 WEEKS 500-10,000 3-4 WEEKS 1,000-50,000 4-5 WEEKS 10,000-100,000 5-6 WEEKS 15,000-200,000 6-8 WEEKS 10,000-100,000 2-3 MONTHS Performed By: #### P REGQNT #### [facility] [address] [place] [address] Dr. Fadi Meza PREG QUANT HCGon 12-05-2022 HCG QUANT 43 mIU/mL Normal [facility] Comment on above: Performed By: #### P REGQNT #### [facility] [address] [place] [address] Dr. Fadi Meza HCG RANGE SEE BELOW Normal [facility] Comment on above: Result Comment: 5-50 0.2-1 WEEK 50-500 1-2 WEEKS 100-5,000 2-3 WEEKS 500-10,000 3-4 WEEKS 1,000-50,000 4-5 WEEKS 10,000-100,000 5-6 WEEKS 15,000-200,000 6-8 WEEKS 10,000-100,000 2-3 MONTHS Performed By: #### P REGQNT #### [facility] [address] [place] [address] Dr. Fadi Meza CBC AUTO DIFFon 11-19-2022 BASO # 0.0 103/ul Normal 0.0-0.1 [facility] Comment on above: Performed By: #### C VDTBH #### [facility] [address] [place] [address] Dr. Fadi Meza Basophils/100 WBC (Bld) 0.7 % Normal 0.2-2.0 [facility] Comment on above: Performed By: #### C VDTBH #### [facility] [address] [place] [address] Dr. Fadi Meza EO # 0.1 103/ul Normal 0.0-0.7 [facility] Comment on above: Performed By: #### C VDTBH #### [facility] [address] [place] [address] Dr. Fadi Meza Eosinophils/100 WBC (Bld) 2.1 % Normal 0.9-7.0 [facility] Comment on above: Performed By: #### C VDTBH #### [facility] [address] [place] [address] Dr. Fadi Meza Erythrocyte distribution width (RBC) [Ratio] 13.7 % Normal 11.0-15.0 [facility] Comment on above: Performed By: #### C VDTBH #### [facility] [address] [place] [address] Dr. Fadi Meza Hematocrit (Bld) [Volume fraction] 36.9 % Normal 36.0-48.0 [facility] Comment on above: Performed By: #### C VDTBH #### [facility] [address] [place] [address] Dr. Fadi Meza Hemoglobin (Bld) [Mass/Vol] 11.8 g/dL Critically low 12.0-16.0 [facility] Comment on above: Performed By: #### C VDTBH #### [facility] [address] [place] [address] Dr. Fadi Meza IG # 0.01 10e3/ul Normal 0.00-0.03 [facility] Comment on above: Performed By: #### C VDTBH #### [facility] [address] [place] [address] Dr. Fadi Meza IG % 0.2 % Normal 0.0-0.5 [facility] Comment on above: Performed By: #### C VDTBH #### [facility] [address] [place] [address] Dr. Fadi Meza LYMPH # 1.3 103/ul Normal 1.2-3.8 [facility] Comment on above: Performed By: #### C VDTBH #### [facility] [address] [place] [address] Dr. Fadi Meza Lymphocytes/100 WBC (Bld) 29.3 % Normal 20.5-60.0 [facility] Comment on above: Performed By: #### C VDTBH #### [facility] [address] [place] [address] Dr. Fadi Meza MANUAL DIFF REQ NO Normal [facility] Comment on above: Performed By: #### C VDTBH #### [facility] [address] [place] [address] Dr. Fadi Meza MCH (RBC) [Entitic mass] 28.4 pg Normal 26.7-34.0 [facility] Comment on above: Performed By: #### C VDTBH #### [facility] [address] [place] [address] Dr. Fadi Meza MCHC (RBC) [Mass/Vol] 32.0 g/dL Normal 29.9-35.2 [facility] Comment on above: Performed By: #### C VDTBH #### [facility] [address] [place] [address] Dr. Fadi Meza MCV (RBC) [Entitic vol] 88.9 fL Normal 81.0-99.0 [facility] Comment on above: Performed By: #### C VDTBH #### [facility] [address] [place] [address] Dr. Fadi Meza MONO # 0.5 103/ul Normal 0.3-0.8 [facility] Comment on above: Performed By: #### C VDTBH #### [facility] [address] [place] [address] Dr. Fadi Meza Monocytes/100 WBC (Bld) 10.6 % Normal 1.7-12.0 [facility] Comment on above: Performed By: #### C VDTBH #### [facility] [address] [place] [address] Dr. Fadi Meza NEUT # 2.5 103/ul Normal 1.4-6.5 [facility] Comment on above: Performed By: #### C VDTBH #### [facility] [address] [address] [address] Fadi Meza Neutrophils/100 WBC (Bld) 57.1 % Normal 43.0-75.0 [facility] Comment on above: Performed By: #### C VDTBH #### [facility] [address] [address] [address] Fadi Meza Platelet mean volume (Bld) [Entitic vol] 9.4 fL Critically low 9.5-13.5 [facility] Comment on above: Performed By: #### C VDTBH #### [facility] [address] [address] [address] Fadi Meza PLT 210 103/ul Normal 150-450 [facility] Comment on above: Performed By: #### C VDTBH #### [facility] [address] [place] [address] Dr. Fadi Meza RBC 4.15 106/ul Critically low 4.20-5.40 [facility] Comment on above: Performed By: #### C VDTBH #### [facility] [address] [place] [address] Dr. Fadi Meza WBC 4.3 103/ul Normal 4.0-11.0 [facility] Comment on above: Performed By: #### C VDTBH #### [facility] [address] [place] [address] Dr. Fadi eMza PREG QUANT HCGon 11-19-2022 HCG QUANT 79220 mIU/mL Normal [facility] Comment on above: Performed By: #### P REGQNT #### [facility] [address] [place] [address] Dr. Fadi Meza HCG RANGE SEE BELOW Normal [facility] Comment on above: Result Comment: 5-50 0.2-1 WEEK 50-500 1-2 WEEKS 100-5,000 2-3 WEEKS 500-10,000 3-4 WEEKS 1,000-50,000 4-5 WEEKS 10,000-100,000 5-6 WEEKS 15,000-200,000 6-8 WEEKS 10,000-100,000 2-3 MONTHS Performed By: #### P REGQNT #### [facility] [address] [address] [address] Fadi Meza US PREG <14 WKSon 11-19-2022 US PREG <14 WKS Obstetrical ultrasound, 1st trimester CLINICAL: Evaluate prior to scheduled DANDC. TECHNIQUE: Transabdominal and transvaginal obstetrical ultrasound was performed. FINDINGS: Comparison: Ultrasound 11/12/2022 There is a single intrauterine fetus. [place]-rump length is 1.81 cm, correlating with gestational age 8 weeks 3 days. No heart tones are detected. IMPRESSION: 1. Single intrauterine nonviable gestation. No heart tones detected, and no growth since previous ultrasound 11/12/2022. Electronically authenticated by: RUCHI FRANK Date: 2022-11-19 13:17 Normal [facility] PAP ACOG PANEL 2: 30 to 65on 11-16-2022 . . Normal [facility] Comment on above: Result Comment: Perf ormed at: WB Performed By: #### 4 [id number] #### [facility] [address] [address] [address] Fadi Meza Age Gdln ACOG Testing 30-65 Normal [facility] Comment on above: Performed By: #### 4 [id number] #### [facility] [address] [address] [address] Fadi Meza DIAGNOSIS: Comment Normal [facility] Comment on above: Result Comment: NEGA TIVE FOR INTRAEPITHELIAL LESION OR MALIGNANCY. Performed at: WB Performed By: #### 4 [id number] #### [facility] [address] [address] [address] Fadi Meza HPV Aptima Negative Normal Negative [facility] Comment on above: Result Comment: This nucleic acid amplification test detects fourteen high-risk HPV types (16,18,31,33,35,39,45,51,52,56,58,59,66,68) without differentiation. Performed at: =G Performed By: #### 4 [id number] #### [facility] [address] [address] [address] Fadi Meza HPV Genotype Reflex Comment Normal [facility] Comment on above: Result Comment: Crit eria not met, HPV Genotype not performed. Performed at: WB Performed By: #### 4 [id number] #### [facility] [address] [place] [address] Dr. Fadi Meza Methodology: Comment Normal [facility] Comment on above: Result Comment: This liquid based ThinPrep(R) pap test was screened with the use of an image guided system. Performed at: WB Performed By: #### 4 [id number] #### [facility] [address] [place] [address] Dr. Fadi Meza Note: Comment Normal [facility] Comment on above: Result Comment: The Pap smear is a screening test designed to aid in the detection of premalignant and malignant conditions of the uterine cervix. It is not a diagnostic procedure and should not be used as the sole means of detecting cervical cancer. Both false-positive and false-negative reports do occur. . Performed at: WB Performed By: #### 4 [id number] #### [facility] [address] [place] [address] Dr. 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 Fadi Meza Specimen adequacy: Comment Normal [facility] Comment on above: Result Comment: Sati sfactory for evaluation. Endocervical and/or squamous metaplastic cells (endocervical component) are present. Performed at: WB Performed By: #### 4 [id number] #### [facility] [address] [place] [address] Dr. Fadi Meza CHLAMYDIA/GONOCOCCUS TALAT (SW AB/URINE/PAPon 11-15-2022 Chlamydia trachomatis, TALAT Negative Normal Negative [facility] Comment on above: Performed By: #### C T/NGNA #### [facility] [address] [place] [address] Dr. Fadi Meza Neisseria gonorrhoeae, TALAT Negative Normal Negative [facility] Comment on above: Performed By: #### C T/NGNA #### [facility] [address] [place] [address] Dr. Fadi Meza VAGINITIS/VAGINOSIS DNA PROB Kel 11-14-2022 Shannon species Negative Normal Negative [facility] Comment on above: Performed By: #### V AGINT #### [facility] [address] [place] [address] Dr. Fadi Meza Gardnerella vaginalis Negative Normal Negative [facility] Comment on above: Performed By: #### V AGINT #### [facility] [address] [place] [address] Dr. Fadi Meza Trichomonas vaginalis Negative Normal Negative [facility] Comment on above: Performed By: #### V AGINT #### [facility] [address] [place] [address] Dr. Fadi Meza Covid-19 PCR (CVDTBH)on SARS-CoV-2 (COVID-19) RNA TALAT+probe Ql (Unsp spec) Not detected Normal NOT DETECTED [facility] Comment on above: Result Comment: This test is not yet approved or cleared by the [place] FDA. When there are no FDA-approved or cleared tests available, and other criteria are met, FDA can make tests available under an emergency access mechanism called an Emergency Use Authorization (EUA). The EUA for this test is supported by the Tetryl Nitrator Operator of Health and Human Service's (HHS's) declaration [...] SARS-CoV-2. Performed By: #### C VDTBH #### [facility] [address] [place] [address] Dr. Fadi Meza US PREG TVon 11-12-2022 [...] MANUEL VEGA Date: 2022-11-12 16:44 Normal [facility] CULTURE URINEon 09-01-2022 CULTURE URINE Culture Observations: LIGHT GROWTH OF MIXED GENITAL SIRIA. NO POTENTIAL PATHOGENS SEEN. Normal [facility] Comment on above: Performed By: #### U RCX #### [facility] [address] [place] [address] Dr. Fadi Meza UA RANDOMon 09-01-2022 Bilirubin Ql (U) Negative Normal NEGATIVE [facility] Comment on above: Performed By: #### U A #### [facility] [address] [place] [address] Dr. Fadi Meza Clarity (U) CLEAR Normal CLEAR [facility] Comment on above: Performed By: #### U A #### [facility] [address] [place] [address] Dr. Fadi Meza Color (U) YELLOW Normal YELLOW [facility] Comment on above: Performed By: #### U A #### [facility] [address] [place] [address] Dr. Fadi Meza Glucose Ql (U) Negative Normal NEGATIVE [facility] Comment on above: Performed By: #### U A #### [facility] [address] [place] [address] Dr. Fadi Meza Hemoglobin Ql (U) Negative Normal NEGATIVE [facility] Comment on above: Performed By: #### U A #### [facility] [address] [place] [address] Dr. Fadi Meza Ketones Ql (U) Negative Normal NEGATIVE [facility] Comment on above: Performed By: #### U A #### [facility] [address] [place] [address] Dr. Fadi Meza LEUKOCYTES Negative Normal NEGATIVE [facility] Comment on above: Performed By: #### U A #### [facility] [address] [place] [address] Dr. Fadi Meza Nitrite Ql (U) Negative Normal NEGATIVE [facility] Comment on above: Performed By: #### U A #### [facility] [address] [place] [address] Dr. Fadi Meza pH (U) 6.0 [pH] Normal 5-9 [facility] Comment on above: Performed By: #### U A #### [facility] [address] [place] [address] Dr. Fadi Meza SPEC GRAVITY 1.025 Normal 1.005-<=1.025 [facility] Comment on above: Performed By: #### U A #### [facility] [address] [place] [address] Dr. Fadi Meza UA PROTEIN Negative Normal NEGATIVE/ TRACE [facility] Comment on above: Performed By: #### U A #### [facility] [address] [place] [address] Dr. Fadi Meza Urobilinogen Qn (U) 0.2 {Shan'U}/dL Normal 0.2 - 1. 0 [facility] Comment on above: Performed By: #### U A #### [facility] [address] [place] [address] Dr. Fadi Meza CULTURE URINEon 08-02-2022 CULTURE [...] Trimethoprim/Sulfame thoxazole >=320 R F Normal [facility] Comment on above: Performed By: #### C VDTB #### [facility] [address] [address] [address] Fadi Meza UTI (P4 Labs)on 07-05-2022 UTI Report Diagnosis Info Invalid Interpretation Code [facility] Comment on above: Result Comment: Osmani estradamatthew UTI Organisms Acinetobacter baumannii:NOTDETECTED Aerococcus urinae:NOTDETECTED [employer] [...] on: 07/04/2022 23:05:19 Performed By: #### 2 [id number] ####[facility] [address] [place] [address] UTI ( Labs)on 07-03-2022 UTI Method of Extraction Voided Normal [facility] Comment on above: Performed By: #### 2 [id number] ####[facility] [address] [place] [address] UTI Number of Jars 1 Invalid Interpretation Code [facility] Comment on above: Performed By: #### 2 [id number] ####[facility] [address] [place] [address] UTI Specimen Urine Normal [facility] Comment on above: Performed By: #### 2 [id number] ####[facility] [address] [facility] [place] [address] UTI Type of Service Global Normal [facility] Comment on above: Performed By: #### 2 [id number] ####[facility] [address] [place] [address] Urology Office/Clinic Noteon 06-27-2022 Urology Office/Clinic Note [...] Low estrogen (more content not included)... Normal [facility] Comment on above: Result Comment: Elec tronically Signed By: Jalen Robledo\.br\Date and Time Signed: 06/27/22 00:01 EDT Ambulatory Visit Summaryon 0 06-25-2022 Ambulatory Visit Summary JESSA CHATMAN :1985 Visit Date:06/25/2022 Ambulatory Visit Instructions Your Diagnosis Recurrent UTI Bilateral kidney stones Tests Performed Urnls Dip Stick Auto w/o Microscopy POC 86443 Your Care Team Attending Physician - Jalen [...] Urnls Dip Stick Auto w/o Microscopy POC 58635 (06/25/2022) Bilirubin Urine Dipstick - 1+ Small Blood Urine Dipstick - 3+ Large Glucose Urine Dipstick - Negative Ketones Urine Dipstick - Trace - 5 mg/dl Leukocytes Urine Dipstick - Trace Nitrite Urine Dipstick - Negative Protein Urine Dipstick - 2+ (100 mg/dl) Specific [place] Urine Dipstick - 1.025 Urine Appearance Urine [...] to exami (more content not included)... Normal [facility] Patient Educationon 06-25-20 Patient Education Obstetrics [...] this condition includes: ? Antibiotic medicine. ? Ckvk-wmn-ydenrwp medicines to treat discomfort. ? Drinking enough [...] these instructions at home: Medicines ? Take vfjz-nwy-tjenxii and prescription medicines only as told by [...] This in (more content not included)... Normal [facility] Coding Summary.on 04-23-2022 Coding Summary. CD:[id number] Gh0bWw+PGhlYWQ+PE1FV XUjP69ntPLmcQ8EB8eLF U1TDPAKBXFZVJ8ZTX1dq BN9SEulQ5JutuAn LxixcUSyZW39LLu7PDZ2 mPnyFRittE3itNSeY5n5 HjXlQK32kF75JAaaXZWg IvP8CdRpuckauDQr U0scFxOnfBAwRnb+PHRh YmxlIHdpZHRoPScxMDAl MbQtrOmsDZ4qRs3iJIXc LWNvbGxhcHNlOiBj y1oiKEGrEJytTL3aaLrv S5YvcVW1ZSFet2p1Kn81 dHI+OQUhZWQ0pMfrHVjd x333VjExq1paAYI3 xEHuGNlxSWL7L53jh7O7 RWLiCENcMRI7uYF7hT8h dQozengxA8MibOEvInV6 SCX4pLQqxK4bjSaz swdixC5tMyn+W91QJQ8Z RPZTTE2LAmm5M5AkYxei dHI+DY20OXTtHY14fNRw oNAvi9zwcWr5DdRo JRXzPMD2hKeqELcxc2Ey UPGkA06qyGEks7W0YUMp fLyodKIyJkMhwIF6cH5p QRqnklkid8vuxqum Oyzid1olni08qU59T11h SWhjKIVnYKC6AYYhJRYn bBbybs7fpD5kDo0+IDxj h0rff7twuFs8OtOu ENVrzoQclLzzFQE1g5Yc Yx71C1NjtKihy0SnWlc1 oa85oFTzx9I4aSL9IQzd OUVnfD2oLMuhOrI9 QLFiFaWrjX04iPEmDIai Qo1qrMrbjVwvFF5dCQNb oeshHLBdhF1qHMZujDIc lIkePF8nLBWrwpvo b625PhBdOGU4AUMxzFGa M6NysV3fPvElEUQkSXBv L9GgsNMpLXnrN061YSjs AgA8ONGnbeVxF1Qk QVOsjYzyMsE4w5H9Qf0Y r8IpknszPQF2BAejFJN4 QiL7LxIoQwS0C5JeKgz7 DKJhaRrySO1bT3Xi EWFbbcfgbodgzFD4TPAf PEHijG88tNCtOBheLi9p s5N7m151QMOdFQKbbP93 Bq0zxYmjTOJmiMVI tF0pzbljv8rqqjobEjMe JCQvWQf5DWe0ATPvbFza VhLqFQR9EgA5OAM9kXJs rH2ttTkmphyxoJ3o Oyc+Z39opR6vJXH3VZJ1 fnvyKPQiflJdWE50XM54 G4VzSpymjMBgyNY+PGRp ncIvgGbgXU7rJzLk h0arz9CfCGbnU0JeFJYc DFboThq3EYBbEIE3mBE7 eZ5bQQQaIMmiv3I6aFF1 I0ZnmiOqob2fr4vk WPYkLDmyM93axJEps9O9 UWZpzMW0GOSknZunZtSy nF92Ket+HATzlTnii3Eo Nrync6ckl9rsmGg5 IjMwJSIgdmFsaWduPSJ0 z6WqOw97R47cWFqpQKQc TPBnKGHpFVAnkCuwlw7k gN2dKy9+PGNvbCB3 hOO6uA4iDHBoZnP2QFil Y737PgZuhZMmAxpqr3oy u1xyqMv6XrHgPVBidqSo cNvsKLY4d6KjBs10 I08tKJamVPQlXXVmATQo NEEprFiuwp1eeD3xHj6+ MO4ma6fqyn19zF84zWN+ RMRcAGR1gSpnMOfh CBAdxX5hZFsiSrC4PHEx NrPsvY16pNPzCTuqNn8f qWscmXkhVT1zBDEapsvk w721ByLdg3ikPGLf vCKnKOnfMDW9C87nd5Q8 VNFjVLYbGDO4mUK7rO2o bGlnbjogbGVmdDsgdmVy hFxiOKpuCMejN352 IHRvcDsnPlBhdGllbnQg OyGkIQj1G3PgBla0QJLy bChtUI5xdVVkCNqfQs3y tVhrkGgaGX0uCWLn agtup650EvYad8qlSVAc sWMqRQofOCZ5A11if3S4 APIvGDNmOMQ7aHL9tB7h bGlnbjogbGVmdDsg qcYupJmxMWcxVAteO124 IHRvcDsnPkJpcnRoIERh jCK1PV30LW92nSBbo4V2 qHY2K8CoHSPjiiln nqpgsUA8XUDcJWEmgJ23 Zg5yaTsxIm4jYSZvMWV2 RQYxsKPaO5BpfS8tQdBu CTQjWPPlB8VjsRQd WGefY143OJxxYlL5OSBh adJaT0KmDVUaaRqqSgO0 j0P2Uu4JE6T0AV83JH74 aLRdp2U3jOU6Z9Is WKXedvlvmhwjbNU2GDAx LDHenB78Ix9nfRxzIv5j PQDjUQY5ALUvpWBhB6Nd cV9jXyCrGZYiWSMf C7KvuIYlSIofT498YZjh PiB2RTVgswRhQ9XeJIHs jKszDjH1w8C9Aw2WLUa3 PX45OV96wTBdp1I5 dUI8Y4BoGEBkuffqzgon jDS4ITSgIJBnrW25Xg6w vUmwGq9mRTZrXNF9NSSg cBYvL0HpzA5zRkAy IUDiHRXzU2RwqEIaHCjl S043LHqtAiK8VVCtinEj I8FaNMDfxWjuSuK0y1E2 Qq6OCCByFE64OKY3 fEH9OC41TB79H4XrFnfv dGFibGU+PHRhYmxlIHdp ZHRoPScxMDAlJyBzdHls NV2yQg4nCSVtJHWu lCojbZFmGaMpc7liOHYf QLhzJV7asGrpJ2AokDH4 MQAkg8g4Lm90Q22bF6Wz dXA+ZDPkfYI3sJH8 iY8cKfYsCxV6CAblS096 MzFuiIFsMdvzf3nyl0tw kIy7UcW9LPBxsrSkmMgj XFG5i4CzUx33X18t IHdpZHRoPSIxNSUiIHZh rVxgot2nnZ2pOt3+PGNv sPC1kNJ4kX8rUkDyFuZ3 GFclM827CoHziDLj Dnjle9lqs4chrLt4KvPv NZAsmxCrcYsrPQZ2y4Hs Bd97V1KrfLnxg9TcSgc5 ki59oHRqv0V1iGX8 A6ZcHBTbrswnxARfiInh PI7xOIIexbvgUOYhmA1u LASgC5o2YvXwIiB3XMaq J1YdydP1HOUrbXNd HZdxYGH7P62st6S5ZHGx RQKeFPH7zEB2fY0pjAjf bjogbGVmdDsgdmVydGlj PMtqTAljJ159VMWu mKuzBNGrwF9mTOHrsJLd lQbqCZ7lSBDljtjwYd8M VCCUFHGVBS3FTLctmXJ+ KLEqCMV2tAgsCGom UFUliD3qLCYhH7e9BgJa CmZ8FOmjA5FeWDUhbdzp Gb53pD6oJxWyXhO0ZVzt O9ZqsvM4GMJrxVBw HMjfHRV4T07hs7E5YEPi UNGbEKD3vZO8qL4xfMie bjogbGVmdDsgdmVydGlj VKirAZiuM233SYSx gDobOxZ0MrA7KzU1ZMJ9 M8NxTnz6RXJmsHleOV8p wDNiSChmSh0xdCbrrIwq NN0lXHIcqmacZBZr gD3wXNElkCEcgVwzFL7k FOLvgmmtf656DbDrLOI3 MMVjuIDxI2CvuB0vEdYu MPOySOAhC6EvyBSc QJvwD579JFvtVwO4NHKg cqSeE3RcYVNipZtwWfP1 f4Z3Fu8qMQGNQTVadsgm dGQ+MUCuBXX7vCor UVxpCRNcrC8zRTKlC3b7 TxSdJoN6IYopU3RgKCXp etqfYm75fV3xKeDgNeR3 ZBvrO1HaurA6ONSh lGMjUQtaWKH8S39yo4D3 WJMzAYZoTOQ2rCI2kZ7r bGlnbjogbGVmdDsgdmVy jEptSGrqHPyoR613 IHRvcDsnPkZlbWFsZTwv dGQ+AFCbCJP3ySttHEhg EIWluV6hIHBhI9o2BeHv XkP9IHanH9SsEUUb mzsyMt69xU7kYcGyIjM7 EDdhV5FgtrA1TKJojVSv JBuaAJI1W60bj1D7CMRq ALDkTET0rLB6dB6h bGlnbjogbGVmdDsgdmVy aQvhQFgrNJioD025YSTa mKilZnycWeBShk2wVD1d ZjwvdGQ+AD30dy48 V9VuHpcnMsi8SJToTUE7 bAF6tN2fKKXtVJiru2X5 tBK9W6HuwjSltm8dy1fc ITVkXJcrR62irPPv a3Q0TNFrpSU4VDCuxDol PnDghI38Poe+PGNvbGdy l9KxXmefe8ugt0igsLw4 IjMwJSIgdmFsaWdu YAW0h3KxGi17J51iMSvs ZHRoPSIzMCUiIHZhbGln qn7ujW0sJz0+PGNvbCB3 iNQ1gP7hUxGgSzG4 LUxnE491TgEdhOElWdyg f2ulc3ixjFu7NlNaAVDn xyDweRnlMYP6d8TmCx64 M0FpjGxum0InJyk0 vv11wBMhh8X0aJT4Q8Rb VCWpssfozCMkyJeiRS0n DZSqzuhqSDUvyY0cBJRb A6m3QoSzYtY0XUjj Q7QiaxZ0SYKpyZUeKXUr sEUHrM5sycrst0hajxjc EnGyVMRbQTa8LTp8EOTd lZniTkIvGQY1EmZ6 RSQ1yWRarD2tiBwckhtv yH9oOjy+GVs1t5qtgXNz NW6rjQB5KQ42BA26iIRu x6P1bGC4M0CeLJFw qgvqfissdPG6DFBtHBRw wX60Zy1myWkzLx1rAXVp CBO3OAYdjCGpB9OaiV7f UkGkERDeAKBjT5Ni oVNiJZojQ120NCepVxP0 BBIhjkZxZ4LrONHlwLwr ZoM4j7D9Cc4PCL92ZJ91 QN93uBOer9P8hOJ0 F7PrIAFqiflvlszruBB3 KKRuOAPguG26Sh2quDuv Zc5pVLUsULJ8CTKndUNp C6BakQ5uUcAbIZAn STRgC6EgkVYeQOlpH702 FChwHlS7UYKumrOqR2Dd VNEqgZsjAwH5r0V5Ui9L Ix02WO00RA76qJLs s7E7tEK9X2UtMOKuwnfa bqxgdWH3JXGsRBUqgF02 Mj5edDafTd4aKXOzFXW9 TPKzzYMrQ8LmkJ5j MvJyKEStBFPyB6ZgmCOg UYeeF415DIsaDkY8URCq hyEsG4FvLMEyzJkaQtE5 d2O6Hl7XAXfbkbu3 S9LaXlujrTW+KX32NBAz QQ17qQWreXDop3wegRl5 IaWqXAHtXPZ6kTovPFio w9LeSIHkR77mwUMi c2U6 (more content not included)... [facility] 04-18-2022 Reminders - From: Lupis Turner To: EU - Clinical; Sent: 04/15/2022 15:02:18 EDT Show up: 04/18/2022 08:00:00 EDT Subject: Urine culture Reminder/Recall Urine culture done on 04/15/22 addressed by ANNITA Smalls [facility] C Urineon 04-17-2022 Bacteria identified Cx [...] Locations R1: This test was performed at: [facility], [address] [place] [address], [address] , , [facility] Comment on above: Performed By: #### 2 [id number] ####[place] [address] Coding Summary.on 03-13-2022 Coding Summary. CD:[id number] Gh0bWw+PGhlYWQ+PE1FV WEaU90evWSkvF8XJ2kHG W4BSHWACBIQMD0LLG8xx KF5OMkoV2ArweFs TwmykDXzTV64XPp4LVY3 dVfjDBnsuX3sgUMkU9b6 EsAkFF59nF53TPbhDNGb DyJ3JrLsujxxgWIb P9ioNwXyvSEzOxl+PHRh YmxlIHdpZHRoPScxMDAl DuJdoCjtNV1oCu2bJXLr LWNvbGxhcHNlOiBj z3lcQVArJCymLJ2hkLfr A3WyaCC3GBBxh0r2Pu03 dHI+EXYvNGU7vZaiAVlg q233ZjDtk8mcYYO7 cNYdSKcdAKQ8A24lr8O9 MARpYQAmUCX1uAO0jG9a mBueulouZ0IotYCmAwU8 UPD8kHMinL2mfPwt gkaghZ0gCni+Z39CSF9P NRPNVJ8DWjz6F1OjMotd dHI+AG11XDJvMA61gOFj jXSiw5fpzYu1CcZw VEMgEIO4xKlsYAigc9Rx XADxB95vhDIle1H6OZWb rXbbbJVkCiXjtGI9uH5g NXvebofbs1zbyeit Cyeng0yaqx66uV93T57q SVfjCJHaLVX8ULDhHNZm aNnphu5vsF1qPc3+IDxj g3osw5vzvAc0WgFy FZKsriWacOwvGYQ3u6Xc Vn03W0GobHmym3XlMdl0 nu37qGUym4H6hXB4UHfi FEFksV1lLMpcLiC4 KGMwJhTxkR05cJFyPGti Od6yvYozmZosDC8nTJEz xkeqUPUrvZ2iNUDdcHEh gVnwBI9pWNYwjxdo k554KiCpCXL3PEGlxITa P4GawK0eOaYmCPZuCKBc Z2VegCGkYYovG638EBlv LwL8XAQqfdBhU5Pj QVWonLvpVtP9m7W8Ev5J a2HhbxlbSQX1EZuhASS2 XdM4EwOfIkC8L4HmSqb0 TBUbaDhgCA2yZ5Lx DINxpchfwmfcgIN5NVMz ZGYtlE93pCBkYOfhHn2o z6G5v657YNCtBNIuxT84 Mx2daIkdHQXkiFWQ rJ4gnfygu6qpnoynOhOx OKVjMVe2WUa2JSTkzFvx ArNwCMV9YvR4NFO2aBPb mZ1dsFrbyynpnR0d Oyc+N39xwY0xLVD1RUW1 pepiOIEqxjXaGN99EU04 B8MmNcbqjZQqgOI+PGRp voVswBctBL6uWpBf n9rnu4WwYKkeM4RyPLCe ENhqVve1CRCyWOX6sAZ8 eF4pBHQtMKuel8L5oVM7 I5IqsiYxvq1vf6mh NJWrAJkcZ91plUYlo6Q1 VSLcxDC9WLZkxNfhKdHa tX85Owd+ZZSwfYsep0Fh Kgekt7tkt4wvpGy2 IjMwJSIgdmFsaWduPSJ0 r1BpWa83Q20dUZbeYNVb RMPoRADjOGVweOtrxn9r bK2lJj4+PGNvbCB3 cVH8dS6xBEHhWtV1WArw D752GtMdyVTqZoyci8nq a1wuoZc6JqZjSIRqulTi hHmcPIV3b6LzBl96 M81jERfxRGKoTEChDDKd MGSmvAlskf8kgD1lSd1+ UQ2zl2gmmg46cK54wHR+ SHYdIYW7qCmrJQet VMKevY5qDUjtOkQ9QDBw LxEuuM45eSBrZQwhQl9i gNilaVdgBU3uRMMobkrk h787SnQla8dgSRJw uXRgMPbwOTY8J96en0X4 PERlTYKqKNG4lKI2pX8b bGlnbjogbGVmdDsgdmVy eJdxODgkFJmtH622 IHRvcDsnPlBhdGllbnQg TfUvOBy0B4IuPtb2OMUj kTpoZP9ixXIjZZsbMj0m bBsbaTgaYI5cNKEg xluaa837ZgRrg2ssWBTs sSFmFZeqKJR7R64hu7V5 YCFfEIRxRVM7nOA0kU5n bGlnbjogbGVmdDsg ntTcuAgsDGmkINipQ965 IHRvcDsnPkJpcnRoIERh kCH6MY98TQ71wSMny1Q2 vCY4C6QeZZCpbbbk omvsbSI6VPHsJARdoS44 Uw3ewZzrZz9iEELpKYU0 VHQguJUeX2WrcS2qInSw UJZvTVHtV4XfsVGf WBzrY894PYxbAhE7DOEe wlGnF6DlYPAqpVyuRrR0 t6W3Pu8DW2S5LK58TC15 tLYtg9Y8nLF2X7Qa NJWsrcwzyzpirIV2HXYr TZMbdO26Sy7zwBhrIs5h KUYuNPD7TSAvjNKeQ3Tf oQ9rPdIcUGOcEBNf U3ZjkQOdHUykS350NUld UeN6FYWjcaWxZ6YuFHIc dMraOiU0p8R5Yk8QGUe9 NN95UP64hKKss6H7 yEA7X6PtLFHtvufybnlv uLQ6FAGzTYLwoQ18Pk9q vUfxHr3bGIYwHNQ1OMCo cXToM6EqqA2lSgRu RFWqFCHjC9AauRChACtw K620FBorDiS7YTEafvWc B6IlHYTylCjrYjN5k5W5 Vx9FOMMsGD09UGU3 jEL7EQ59YP31X6WkOwzy dGFibGU+PHRhYmxlIHdp ZHRoPScxMDAlJyBzdHls IC8rQs3bRIXpMORx dIljcXItWuSrv1dyITQv RDdlKW0itJyxL0ThbKJ6 ABMnh5w3Rp39N30cL4Qr dXA+NBIbfJR2pCH3 xG7yFpGtJlN5WZmqY401 AxRauKJgDtqct3kyp1vi pKu8XiX0ZWWbicZdoFbj SLD7o2AtOz36G12c IHdpZHRoPSIxNSUiIHZh tNfmxk8ubU9dFb4+PGNv xRI2eVZ3tX1eVyXhBiX4 SNnjA416LnTyeTTp Inyjb7lgs1smcVg2EqNe OXTuyaOodLeuIZX6j0Qp Xy57N5OpcCpxd2NrXgf6 yx24fTEaw5B2mGB6 M3YqMDAetuakgWPgwVzj JE4tUSAsbmhvNDGktV2s OJOqP8t4VqYzLaM2TSyk M7MihsJ7EVAnjYMj LXgjHPA3H96ak6E8VMXa CTQzKYR6rFF9qR9keKhe bjogbGVmdDsgdmVydGlj PKesZAtuN539RCXg gKskXOMjcZ7kQUSljLNm gAxsKX2mIWJsqpugQc6B XRCFECJPFF7ZBNhxdLS+ TGGgDYT0wFonYYmz WBRspS6zHZVzD1f8RfLr KeA2GNoqZ9VyIZPnruyt Eu86sP4sSlMtVbK9YIvk W4AonlM0EBKnwLBx CKgmCQS8Z69fk2M9ZXMw GQFpUAI4kWN1cH6nxWlo bjogbGVmdDsgdmVydGlj IOeeXUxhN896KXTb iCwxNtS5DvM6HrE8EHC3 E7HxOjk0ODHhjAgoPT9g eNThLDxoRb7fvDfbdPdx LC2qQBAotdvvMVTf tH2yRYUotIKxqYsqII2l NEWkavtez443ChKxCCF2 BGAifMPcX6VblE0jTkNg SQMqMRBpB3QkoDJz DRsuV820ASiqQzQ9RARf cjBoQ9LqAGKdmAvnSsW4 o5Y9Mk6bITEMBUQihhqx dGQ+EVRuDMB4aYsh WNifTUUpiR6mERDdC9e7 SoDhQpB3DPpqA2CsOEQc cpdaRp77dX0kVgLzQdM5 PAheR6KporW5KIKe vNSuNHbgIIK5A88go8K8 OPFtFBFcJST0tLN1gR7q bGlnbjogbGVmdDsgdmVy cOjlYLgyQZprL329 IHRvcDsnPkZlbWFsZTwv dGQ+TIMbAIP4sOorXZyx IPQcxJ7eITCuL7w3YlTl LfC4QVyqF6TiUVUx xmanYq27wF2xRdVdDkV1 BFijK1BzqmN8ZTSslPRl RAlxWUL1K57jq6I8RKZc OFNwTAJ1yUF3zR4t bGlnbjogbGVmdDsgdmVy nSfnVYyfOZhaA779NGSr hOqeUbweZbNEew5kGX7p ZjwvdGQ+EL68bm43 V4PoYonzJzs9EFAtSZM2 kVF7sT6kLRVoVVhut9Z6 fDQ4Z7ZfhvXlui1hu5ng XUTbCIghX01mqDHv o4L3OMFyeZB3ETDmkCwj FgBuaW84Awy+PGNvbGdy f4DkUmioc2brj3lxmGn9 IjMwJSIgdmFsaWdu EYV9n0RpDx45N44yPVmg ZHRoPSIzMCUiIHZhbGln fi4wtH8wQs9+PGNvbCB3 eAT4jF2fWrDjTaV1 VKaxV786UtWgnBOiNqpi f8mxv4wciDr8JsTkVKGj ujByxWvxIEL0c2HcVg32 I4LkfWvis6VyJyg6 by10bQMff3E8dER4M6Fg KYCszbjnvHMulSqlBY9i FMFmxkofDFIsjY1eJQVl N4z3CaMqUjQ2LJzp Y0FnkkW8CXLufRKnLOGj uBVPlU0sfmord4nbzmyb GvNoVJUxDTi6NJm8IEFl eNyoUfLfHMQ6HeT7 QMS2aVJnpS0qhYrakpnw vT5lBnu+URp4w8gifHRb GN8egYK6IP40KB00bSPc a6L6kQY0X6GkUVDk bmjcgrkjhFI1FIRvVWGa lX61Dp1ycDezGn4wLNZg DRW6OGCkwPXqZ0XooS3v IxSjJRJrIGVgY0Hd gDSgKEotQ782IHimSmK2 JTDzhfSnQ0XrJANuzBld HrX5g6N1Hq7LLB97XC16 FU63dKOkr0M8pHP5 V3MkZTUnumriafilyBZ1 CSRgZUMagM68Fd5ubCcb Wd3bDWObWXS0OLGbuLJi D9FehJ5eStMnLUFu XFCjF8CpzSVzDHiuM443 TQfeBjG5RRNoomJlT5Vf VPZzyApjXxS7b9Y7La0N Vn30YY07PR39rXUw q2P6iUJ6O1MwLNCarviu qoaxbCH2FLIuZTMqtL74 Rc6whInzWf1jORJwXJB6 KBVzlBShR6DswX4h KkYoMRQwXLWhF9NvsCNp GAxjP861EEemPyG3QZWi skVgQ4CqIBGvcAhjZrZ6 k4W4Rf8UZTaxgwv1 T1XsQjpxdPA+RX80BVHo OP27rBEroWFtw4kenAd3 IjPxBCYfDBG7eUdpHPml g8RgFJCnK53brXTm c2U6 (more content not included)... Normal [facility] C Urineon 03-08-2022 Bacteria identified Cx [...] Locations R1: This test was performed at: [facility], [address] [place] [address], [address] , , [facility] Comment on above: Performed By: #### 2 [id number] ####[facility] [address] [place] [address] Reminderson 03-06-2022 Reminders - From: Lupis Turner To: EU - Clinical; Sent: 03/06/2022 14:52:59 EDT Show up: 03/09/2022 14:52:00 EDT Subject: UA micro, CX Reminder/Recall UA micro/culture done on 03/06/22 Normal [facility] URINALYSISOrdered By: Nazario doyle on 03-06-2022 [...] PM) Normal Negative [facility] UA Auto SS [place].plasma/Lithiu m.RBC (Bld) [Mass ratio] 0-3 /HPF Normal [...] [Mass/Vol] Negative (03/06/22 2:52 PM) Normal Negative [facility] UA Auto SS Specific gravity (U) [Rel density] 1.015 *NA* (03/06/22 2:52 PM) Invalid Interpretation Code 1.005 - 1.030 [facility] UA Auto SS UA Spec Desc Random Urine (03/06/22 2:52 PM) Normal [facility] UA Auto SS Urobilinogen Qn (U) 0.3241744 {Shan'U}/dL Normal 0.0 - 1.0 EU/dL [facility] UA Auto SS WBC Auto Ql (U) Negative (03/06/22 2:52 PM) Normal Negative [facility] UA Auto SS WBC LM.HPF (Urine sed) [#/Area] 6-15 /HPF Invalid Interpretation Code 0-5/HPF [facility] UA Auto SS Urinalysison 03-06-2022 Bacteria LM Ql (Urine sed) 2+ /HPF Abnormal Trace [facility] Comment on above: Performed By: #### 1 [id number] ####[facility] [address] [place] [address] Bilirubin Ql (U) Negative Normal Negative [facility] Comment on above: Performed By: #### 1 [id number] ####[facility] [address] [place] [address] Clarity (U) SL CLOUDY Abnormal Clear [facility] Comment on above: Performed By: #### 1 [id number] ####[facility] [address] [place] [address] Color (U) YELLOW Normal Yellow [facility] Comment on above: Performed By: #### 1 [id number] ####[facility] [address] [place] [address] Epithelial cells.squamous LM.HPF (Urine sed) [#/Area] 3-4 Normal 0-2 [facility] Comment on above: Performed By: #### 1 [id number] ####[facility] [address] [place] [address] Glucose Test strip (U) [Mass/Vol] Negative Normal Negative [facility] Comment on above: Performed By: #### 1 [id number] ####[address] [address] Hemoglobin Ql (U) Negative Normal Negative [facility] Comment on above: Performed By: #### 1 [id number] ####[address] [address] Ketones (U) [Mass/Vol] Negative Normal Negative [facility] Comment on above: Performed By: #### 1 [id number] ####[address] [address] [place].plasma/Lithiu m.RBC (Bld) [Mass ratio] 0-3 Normal 0-3 [facility] Comment on above: Performed By: #### 1 [id number] ####[address] [address] Mucus Ql (Urine sed) TRACE Normal Fish [facility] Comment on above: Performed By: #### 1 [id number] ####[address] [address] Nitrite Ql (U) Negative Normal Negative [facility] Comment on above: Performed By: #### 1 [id number] ####[address] [address] pH (U) 7.5 [pH] Invalid Interpretation Code 5.0-9.0 [facility] Comment on above: Performed By: #### 1 [id number] ####[address] [address] Protein (U) [Mass/Vol] Negative Normal Negative [facility] Comment on above: Performed By: #### 1 [id number] ####[address] [address] Specific gravity (U) [Rel density] 1.015 Invalid Interpretation Code 1.005-1.030 [facility] Comment on above: Performed By: #### 1 [id number] ####[address] [address] Type of Urine collection method Random Urine Normal [facility] Comment on above: Performed By: #### 1 [id number] ####[facility] [address] [place] [address] Urobilinogen Qn (U) 0.2 {Shan'U}/dL Normal 0.0-1.0 [facility] Comment on above: Performed By: #### 1 [id number] ####[facility] [address] [place] [address] WBC Auto Ql (U) Negative Normal Negative [facility] Comment on above: Performed By: #### 1 [id number] ####[facility] [address] [place] [address] WBC LM.HPF (Urine sed) [#/Area] 6-15 Abnormal 0-5 [facility] Comment on above: Performed By: #### 1 [id number] ####[facility] [address] [place] [address] Consent for Procedure/Surger yon 02-26-2022 Consent for Procedure/Surgery [id number] 9#1.00CD:127 Normal [facility] RAD - MISCon 02-26-2022 RAD - MISC [id number] 8#1.00CD:127 Normal [facility] RAD - Ultrasound Reporton RAD - Ultrasound Report [id number] #1.00CD:127 Normal [facility] Ambulatory Visit Summaryon 0 02-25-2022 Ambulatory [...] Follow-Up Appointments Thursday 2:45 PM EDT With: SHAYNA JENNINGS, Kwadwo Andrade Where: [facility] [place] Normal [facility] Patient Educationon 02-26-20 Patient Education Urology [...] these instructions at home: Medicines ? Take nwai-zoa-mrpmala and prescription medicines only as told by [...] 04/13/2009 Document Revised: 03/13/2020 Document Reviewed: 03/13/2020 [employer] Patient Education ? 2019 [employer] [facility] Urology Office/Clinic Noteon 02-25-2022 Urology Office/Clinic [...] urine The Urethra was dilated to: 18-30_ Spanish with sounds. urethra bled. dry. Removal: Cystoscope [...] months 06/27/2022 EDT [facility] [address] , [place] [address]- Additional Instructions: Patient Education Kidney Stones, Jebu-dv-Qnow Devonte Nickerson personally scribed for Dr. Saez on 02/25/2022 15:18:41. . Documentation recorded by the scribDevonte dodd, accurately reflects the services(s) I performed [...] Grandparent. Diagnostic Results Tests Reviewed: Reviewed UA. [facility] Comment on above: Result Comment: Elec tronically Signed By: SHAYNA JENNINGS, Kwadwo R\.br\Date and Time Signed: 02/25/22 15:21 EDT\.br\Electronically Co-Signed By: Devonte Echeverria\.br\Date and Time Co-Signed: 02/25/22 15:19 EDT Pre-Certification Formon Pre-Certification Form [id number] 0#1.00CD:127 [facility] Reminderson 02-10-2022 Reminders - From: Kristyn Echeverria MA To: EU - Clinical; Sent: 02/04/2022 16:03:36 EDT Show up: 02/08/2022 16:03:00 EDT Subject: Urine Culture Reminder/Recall Urine culture Pt is currently . ANNITA addressed [facility] C Urineon 02-07-2022 Bacteria identified Cx Nom (U) Microbiology PROCEDURE: Urine Culture [R1] SOURCE: U Random BODY SITE: COLLECTED DATE/TIME: 02/04/2022 16:00 EDT RECEIVED DATE/TIME: 02/05/2022 13:57 EDT START DATE/TIME: 02/05/2022 13:57 EDT FREE TEXT SOURCE: POLLO LIN, SAIDA [...] Locations R1: This test was performed at: [facility], [address] [place] [address], [address]- , [place], Normal [facility] Comment on above: Performed By: #### 2 [id number] #### [facility] [address] [place] [address] Performed By: #### 2 [id number] ####[facility] [address] [place] [address] Coding Summary.on 02-07-2022 Coding Summary. CD:[id number] Gh0bWw+PGhlYWQ+PE1FV VAhV62xoEUmsX7PR0zRK L4IBBYWBBJKKA5MFM6sl RK0NTkcM2HbrkFg YxlhiMUmRJ79YPb7GIT6 xHvfMXggzX2jsFLyG5i8 MjAbHY51uH00XYbmWYMe ToQ5ShYlavekfNQs O6sjAtZopNNyUol+PHRh YmxlIHdpZHRoPScxMDAl KqFopOgfYT4bAn3bXNZd LWNvbGxhcHNlOiBj p6zhJGKdCSyhHC8feZky I2DnbIQ6OLYcj4s1Bw37 dHI+KKGjKCB3kTtfHXsy x587ClYma6etTTF3 jRVzYYzbQFG1C25pi0E6 WDIdLNLcNCU1lZO3cL5r oCzefeaeO9VsaWEbRkF7 GCP3lXNquN9irKih hlfxcY5yNiw+J42RZK3P TJHYOX9TJfg9Q8QmLnci dHI+PH81ZJBfPC32vPQh gIRzm1hbyUw4AvHc CPQaOUX8kLgnALiij8Rf DJGfI15dvOIbk2F8BLLv lPlldDSzWkJsfZD0pH8e RUllietbk1ieawhn Tmedr9szju82bJ15J01c JBkhFIPpBFU0EMTpJBWf pPwpfv1umC7hHe4+IDxj f3vnc9soxUp1FeIr EAGypgBbaXkkGDN2c6Bn Hg70T6CcvVxnm8GrKpy1 mm14pCDpn7C6jXE4CJgh WXVaoU3yHOlxIgU3 IUIlZcJycD45rFDpGRrx Gw1ugXlamKlrNH0eDRQq whvhZJTdvM3sILIngEVz kWclZQ3pZEJjvahz a200ShTuLUI1LUVseLSa T1FfcM0bOsXcLURsTSYu L7CbtRZyCSigM365GMdj VqI0KLUdgjGbF0Cp YACocJxvXyE2f1I1Tf3X h5LnxoaaFXO8AOrrVSIf UxMySyVhUmB3P5DzSpc0 OMVcfYthPB8lH0Hh DPYadsvtoavemMI0FBAj EMHlrU00gZTmSNscDu3c c7R9c751MSGvYSDnsF49 Tj4hbDozZFCwkZGP qK8jqomyr7qxjxkvEcEr BUDyJOx0IVw3TKXxzTqd NxZuNVE4JnB8PSU4cYAy gW5sqCtxcnyuoG1n Oyc+L02kuV2sAXB8TPF2 ejztYWQwuoHfEY00IR75 B7AsPpmcbUGebIG+PGRp suHicNdaKT4nHrSn e8kuj8TePZmvA8BpOUXv LNcqTmj4BYMdFVU0rBZ4 iM3qTPBgRDsph3D9dZL9 C5CukvXbtt0xo5dl SYXvIHpjE43paJXga2B8 YSSzeSE1ZQQaeFcnFzIx sG84Yay+VGOxzNvuu9Ms Bujql2jwq1gssTz6 IjMwJSIgdmFsaWduPSJ0 l1LfMc74M86wOLbdWRLf WNTeEREbUWIztSxqpw1l sT7tNx3+PGNvbCB3 lXO5bP7zCMRtWgP2ILtr M649PgGjjSCrTcvbs5uo e2zszTz5DsFjPFPiqbZs hHiqKIE2t1PqNa00 L42zSYjsARPmGTRvPYJz FFEbmSicuf4ezN0tKq4+ PY9qk8hxze62pI25bGD+ BSIvVOX3wUevEUtc HRHbzA0oFFyzIaP9FCSz KdYuwR13yWDvBXruNt5m xYdeqUxpAK5kUTIrifoh u366CjDqr9zvREOf pEEcRMuhBZQ1G55od8Q7 YCPiBCAzMEK0dMU5xV1z bGlnbjogbGVmdDsgdmVy pCwlDRfaLMkbD142 IHRvcDsnPlBhdGllbnQg HvIaYJz2Q1UdRtp9LSDv wLwjTV6nxDBtYMzjPb4h cAuydGfpBP8xLFEj zwgnw405OiNyn7qfBDDa xMDzYNnrNBX5H43yv7P2 JFSyGBMbSOG3vWK8uE0d bGlnbjogbGVmdDsg tqFioQiaOLecANttT623 IHRvcDsnPkJpcnRoIERh qSA8KL06EQ11nEGqc0O3 rKI9H2EfBKKmrkjx yhwtgUC0GKNwRLUyuG27 Vx4bnKemYw8qGVWaIIU3 DZCkaWFvR4NtaV9sDmSd IAVvEHKhB8ZjbKVs SGahP243BNvePpU5BIUa xlBtC5IvIORvfHrtZrJ5 y4O3Wq4PI7M7TG82NB24 fAFgr9W0zLV0H5Nn HJZhoaidjgmrkBY9ZXUu WLIhlO75Kv8wxRncGl1c FGKjLEX8MRCyxXBlU2Xp lW1tFsZxJKOvQJHz G4UiaAPuZOiqJ765DKnb KiX0EUAfivRwX9YiISKv wKwpOwB6s0N1Pp2JXMx9 OW50QO57nYHlu4G6 yQW9N6LeBSXgmrbkwvct wXL8XUQqQDIvdE40Fw6s sVmlHr7hGPMuFKF3JTCk xPPhD5LkaF7bLiEf ETUmCOSkD7IqiODqSDqz I492KZyjRvY2VKQbqdVf S4NvEKBlcYvlFoK4j1U9 Bj9AIURqUI04EIZ8 xCD1JG27LC21S3NmJusu dGFibGU+PHRhYmxlIHdp ZHRoPScxMDAlJyBzdHls ZJ0iHt8rLXByWPHc gLkswDIxVkNnm8jrSFGl NFayNO7sqLqxQ0JhrFC2 UTKie4a6Hl10M75hA3Ye dXA+LKLhyUO6jJD9 kG2bHsDvJoG8KGxkC251 ArAfdRIyYasvd3eey4xh dBn5GtN1MUSizxAgdBgy QPU4n3OqBo81I17a IHdpZHRoPSIxNSUiIHZh mXihws3xoC3xMy5+PGNv rQG1yTX2vU3yOcLuDpU6 PPgaR778HgXxfIFm Cuqed6gun6ygbOd7WnMl VGFuhzBfoAqvRRX5o1Wj Da27D6ZpzOwjt9UsWbw7 ke27bJGpa0A8iFA3 E9UrYSKpqkpzfFKroFmt AC2cQNRqejbxQJCfyC5g VRRpZ5i7WmHxRdZ1JZey R6BsniD9VZIhvEFf ZZwiAPZ5V24nw8P4MWJv HBSiBYZ6qVQ6sW3kvVpa bjogbGVmdDsgdmVydGlj BTuxZRkoT199RZKg oTnpMQSnoK1hSNGvvXFx fBtwQC7iBRLnzjzlOp6O BWPIMMSCIG5NBEwzrTB+ EOKiNDQ1vDprVTkh JZFukL6kAMDtO7m4UoRp GvK6CForU6YkQTPzvfga Hd97sQ4rYoRpRtF2YOsf A2OdgiY9GEYuoPDg THtvZMT5H42ko9E3FAVm EHPbMRG3gVD1gN1orUuz bjogbGVmdDsgdmVydGlj VHddEPwqW555KTEn sXctYuP8MxN4HzF2LAV2 M4ZuIdb3ZNOeaGbvZR3z gMVmEVetYv1jwGfmlEep NR0fVDGbdqfnCCAv uI9kIRPwvKAchQmkNI3c SGQcihfjj931JyQlVII5 HYSgdWQcV0RbdZ7kEuKa OBKvXAWgV5LykMVw ARkzW156IIrmYfD0OMFr ifJdO7TuHLLelPloKyK8 z8V3Fn1iALDVHHRwfszz dGQ+NFQiJND1tVbc ZGmfXUDuuV5wLYBmG0o0 CiPeLrS1QVxgC8PlRRWb xtctIl89cQ8pFxKbEzG8 UJuoM0AyahB5UQZi hAUlYTlfDPA0R90pi0H5 SBAmFPJtTUI1kWY2kU7w bGlnbjogbGVmdDsgdmVy uKmiZMalCAvjB246 IHRvcDsnPkZlbWFsZTwv dGQ+LKVuNEG0cXesXTfu XAGvhN5vSNYlI7q2KoZj DaA4CMgwE0PaWBWw qhqjDu31fA6tYgOdKpQ5 HPynQ8AmdzG7ZPKefCMb QXoyMXY4U54og4H1DJNp IACgDDQ3mGA3zK4h bGlnbjogbGVmdDsgdmVy hFpmIAamLBauZ150VEWs fSlwJevxMyEJfu3eIX0m ZjwvdGQ+HA65qe69 E6ReDlwqPqz7DJMmLAY5 iEA5yM0pOQYbBIqco5F5 vWR7G2BrpyKene2aq1vu HWFoDHtoP42maKJm j2T3NCLfjLU6YXGkjEkl ZuZgbS65Dcg+PGNvbGdy r7NdFokew6ykr5txpPl5 IjMwJSIgdmFsaWdu PLA7f9WaSt00I15hKSgu ZHRoPSIzMCUiIHZhbGln dg2vgU2zVo6+PGNvbCB3 tCH7eC2sWiYlBvC1 OGilU974YdUygKCjWluj o2tmc1bveWt1UfLjPEKx pyDvaWjnXFZ5a9NwUu85 C0RgjPahw4BqMsj3 qs77uDKly8D1cYA8W7Fb RZBzfkcnqUWanQkdUP2v EDVtwfvzSPJisG2iWFWu Z5y9GwLoJsD3UCwf N2IwkcN2WUEfyHRdCPOn bZECuY9vwnetl2cevgoy TpLnARCeOKg4EPo2ISOi zAxeMmCgNAD4ZzU9 SOZ1tFVckN7ycDsijybr iQ4vViw+SUl0d6zgrKKi YU3lgCR3ZQ76HJ10jTXu s4W7uAP7B6LtXWYy bgmnmjmrfPI1ZBBdLVSp zL54Vz7zxYkaCp2nOZWt UBY9KHEnhBEhW1IklW5c NgUoCWTzRRSqZ5Wd hRAaYZhxY003ZSneMlZ5 AMLgqvRsD3IoBTLuhWdi GdZ0t5L5Tc8PUO72PR99 UD02aLAwi2X2nGM1 Z4ThKUYfvdwulbezoUO3 DZTbVGXvaY55Hr1vwXby Ub9wVFLpAIZ7QLGjrXIv C4AqbD1rFiXdEDXg SWAwY2ThnVIwNZmsR251 VMavQaY8KJCxvlNtR5Nz RQGfhHsgBvW9a0D3Fb2R Hi91IJ39GB29eLXz c3S9tAE5J1LsDNYuwlav reuetWL3CBOqEPGipZ49 My7zaZzxZn9gGAXcQIN1 JGTpdZTjO1SdqU3g IlGsMZHlNZPfE6BuxPYu HTpdS851NKjnLlM2CCDn kjPrE6HsDRBwfVguHdO4 e1F0Qq2KRByhkpd0 O1SjMnirkIU+VO15TDDe NR45nCIqwGShs6zjdPk6 IcQuWFBnFNK3bCylDYix u8YcWIIgW75xsZOl c2U6 (more content not included)... Normal [facility] US renal BIon 02-07-2022 [place] [address] Ultrasound Report Signed Patient: Jessa Chatman MR#: [id number] 9 : 1985 Acct:[id number] Age/Sex: 36 / F ADM Date: 02/07/22 Loc: Room: Type: [facility] Attending Dr: Saida Abad PA-C Ordering Provider: [...] Mark Stark M.D.02/07/2022 3:24 PM Dictation Location: [facility] Tech: Saida Gilliland Transcribed By: KARI 02/07/22 1524 Dictated By: Mark Stark DO 02/07/22 1522 Signed By: 02/07/22 1524 [facility] XR KUBon 02-07-2022 XR KUB [facility] [place] [address] [place] [address] XRay Report Signed Patient: Jessa Chatman MR#: [id number] 9 : 1985 Acct:[id number] Age/Sex: 36 / F ADM Date: 02/07/22 Loc: Room: Type: [facility] Attending Dr: Saida Abad PA-C Ordering Provider: [...] Mark Stark M.D.02/07/2022 3:13 PM Dictation Location: [facility] Transcribed By: KARI 02/07/22 1513 Dictated By: Mark Stark DO 02/07/22 1512 Signed By: 02/07/22 151 [facility] Patient Educationon 02-05-20 Patient Education Pharmacology [...] Trouble breathi (more content not included)... Normal [facility] Urology Office/Clinic Noteon 02-04-2022 Urology Office/Clinic Note Chief Complaint referred for recurrent UTI. [facility] Staff Jessa is here today as a new patient referred by [employer] [employer] for recurrent UTI.Started Cleocin 300mg on 12/24/21 [...] on Cleocin x 7d in Dec per [employer]. pt has not noticed any connection with [...] baths & hot tubs, avoid any scented [employer] products, urinate after sexual activity, etc) PVR [...] E&M of New Patient Moderate 45-59 Min 67014 Urnls Dip Stick Auto w/o Microscopy POC 98417 US Renal XR Abdomen 1 View Orders: [...] Protein Urine Dipstick: Negative (02/04/22 14:41:00) Specific [place] Urine Dipstick: 1.025 (02/04/22 14:41:00) Urine Appearance Urine Dipstick: (more content not included)... Normal [facility] Comment on above: Result Comment: Elec tronically Signed By: SAIDA ABAD PA-C\.br\Date and Time Signed: 02/04/22 16:12 EDT Vital Signs Date Time Vital Sign Value Performing Clinician Facility 06-25-2022 09:14-0400 Blood Pressure Location J[facility] 06-25-2022 09:14-0400 Diastolic blood pressure 86 mm[Hg] Jalen Mor[facility] 06-25-2022 09:14-0400 Heart rate 77 /min [facility] 06-25-2022 09:14-0400 Systolic blood pressure 130 mm[Hg] Jalen Mora [facility] 06-18-2022 10:45-0400 Body height 162.56 cm Devin Lam Other [facility] Other 06-18-2022 10:45-0400 Body mass index (BMI) [Ratio] 28.49 kg/m2 Devin Lam Other [facility] Other 06-18-2022 10:45-0400 Body weight 75.3 kg Devin Lam Other [facility] Other 06-18-2022 10:45-0400 Diastolic blood pressure 76 mm[Hg] Devin Lam Other [facility] Other 06-18-2022 10:45-0400 Respiratory rate 16 /min Devin Lam Other [facility] Other 06-18-2022 10:45-0400 SaO2% (BldA) [Mass fraction] 99 % Devin Lam Other [facility] Other 06-18-2022 10:45-0400 Systolic blood pressure 118 mm[Hg] Devin Lam Other [facility] Other 05-13-2022 16:00-0400 Body height 162.56 cm Devin Lam Other [facility] Other 05-13-2022 16:00-0400 Body mass index (BMI) [Ratio] 29.73 kg/m2 Devin Lam Other [facility] Other 05-13-2022 16:00-0400 Body weight 78.56 kg Devin Lam Other [facility] Other 05-13-2022 16:00-0400 Diastolic blood pressure 68 mm[Hg] Devin aLm Other [facility] Other 05-13-2022 16:00-0400 Respiratory rate 16 /min Devin Lam Other [facility] Other 05-13-2022 16:00-0400 SaO2% (BldA) [Mass fraction] 97 % Devin Lam Other [facility] Other 05-13-2022 16:00-0400 Systolic blood pressure 114 mm[Hg] Devin Lam Other [facility] Other 04-16-2022 10:30-0400 Body height 162.56 cm Devin Lam Other [facility] Other 04-16-2022 10:30-0400 Body mass index (BMI) [Ratio] 30.72 kg/m2 Devin Lam Other [employer] Other 04-16-2022 10:30-0400 Body weight 81.19 kg Devin Lam Other [employer] Other 04-16-2022 10:30-0400 Diastolic blood pressure 80 mm[Hg] Devin Lam Other [employer] Other 04-16-2022 10:30-0400 Respiratory rate 16 /min Devin Lam Other [employer] Other 04-16-2022 10:30-0400 SaO2% (BldA) [Mass fraction] 99 % Devin Lam Other [employer] Other 04-16-2022 10:30-0400 Systolic blood pressure 130 mm[Hg] Devin Lam Other [employer] Other Encounters Encounter Date Encounter Type Care Provider Facility Start: 11-16-2023 End: 11-16-2023 ambulatory MOUNA LUIS M Not Available Start: 10-28-2023 End: 10-28-2023 ambulatory MOUNA LUIS M Not Available Start: 10-23-2023 End: 10-23-2023 ambulatory ARACELI MAGALY [facility] Start: 10-08-2023 End: 10-08-2023 ambulatory MOUNA ANGEL Not Available Start: 09-23-2023 End: 09-23-2023 ambulatory MOUNA ANGEL Not Available Start: 04-15-2023 End: 04-15-2023 ambulatory Devin Lam Other [facility] [employer] Other Start: 04-15-2023 Telephone encounter Devin Ziggy [facility] Start: 01-19-2023 End: 01-19-2023 ambulatory Devin Lam Other [facility] Other Start: 01-19-2023 Telephone encounter Devin Ziggy [facility] Start: 12-19-2022 End: 01-07-[address] MOUNA ANGEL . Facility:[facility] Start: 12-05-2022 End: 12-06-[address] MOUNA ANGEL . Facility:[facility] Start: 11-19-2022 End: 11-19-[address] MOUNA ANGEL . Facility:[facility] Start: 11-16-2022 Encounter for preprocedural laboratory examination DR MOUNA ANGEL . [facility] Start: 11-13-2022 End: 11-14-[address] MOUNA [...] Dasia Addison [facility] Start: 06-25-2022 End: 06-25-2022 Patient encounter procedure Jalen Mora [facility] [place] Start: 06-18-2022 End: 06-18-2022 ambulatory Devin Lam Other [employer] Other Start: 06-18-2022 Office outpatient vi sit 15 minutes Devin Stephanies [facility] Start: 05-13-2022 End: 05-13-2022 ambulatory Devin Stephanies Other [employer] Other Start: 05-13-2022 Office outpatient vi sit 15 minutes Devin Stephanies [facility] Start: 04-16-2022 End: 04-16-2022 ambulatory Devinkye Arroyos Other [employer] Other Start: 04-16-2022 Office outpatient vi sit 25 minutes Devin Stephanies [facility] Start: 04-15-2022 End: 04-15-2022 Lab Drop off SAIDA ABAD [facility] Start: 04-15-2022 End: 04-15-2022 Patient encounter procedure Kwadwo SAEZ [facility] Start: 03-06-2022 End: 03-06-2022 Lab Drop off Kwadwo SAEZ [facility] Start: 03-06-2022 End: 03-06-2022 Patient encounter procedure Ravinder MCCAULEY [facility] Start: 02-04-2022 End: 02-04-2022 Lab Drop off SAIDA ABAD [facility] Procedures Date Procedure Procedure Detail Performing Clinician Start: 11-09-2013 Colonoscopy and biop sy of colon Kwadwo SAEZ Start: 11-09-1989 History of tonsillectomy Kwadwo SAEZ Start: 11-09-1989 Tonsillectomy SAIDA HELMRY Start: 11-09-1989 Tympanotomy SAIDA [place] Immunizations Immunization Date Immunization Notes Care Provider Rao rincon 11-09-2020 SARS-CoV-2 mRNA (tozinameran 5y-11y) vaccine Jalen Mora [facility] Comment on above: Result Comment: [address] [facility] 03-10-2015 tetanus toxoid, reduced diphtheria toxoid, and acellular pertussis vaccine, adsorbed Kwadwo SAEZ [facility] Comment on above: Reason for Medicatio n: Other (see comment) NEGATED: Highlighted row has not occurred!02-19-2019 influenza, seasonal, injectable Patient Objection Devin Lam Other [employer] Other Payers Date Payer Category Payer Unknown [id number] 2.16.84 [id number] 1986 Unknown [id number] 2.16.84 [id number] 1986 Unknown [id number] 2.16.84 [id number] 1986 Unknown [id number] 2.16.84 [id number] 1986 Unknown [id number] 2.16.84 0.1.045251.3.579.2.593 1986 Unknown [id number] 2.16.84 0.1.103883.3.579.2.593 1986 Unknown [id number] 2.16.84 0.1.662441.3.579.2.593 1986 Unknown [id number] 2.16.84 [id number] 1986 Unknown [id number] 2.16.840 .1.798202.3.579.2.1259 1986 Unknown [id number] 2.16.840 .1.827948.3.579.2.1259 1986 Unknown [id number] 2.16.840 .1.678555.3.579.2.1259 1986 Unknown [id number] 2.16.840 .1.986334.3.579.2.1259 1959 Unknown [id number] 2.16. [id number] 1959 Unknown [id number] Social History Date Type Detail Facility Start: 02-04-2022 End: 02-25-2022 Tobacco smoking status Never smoked tobacco (finding) [facility] Tobacco smoking status Never [facility] Sex Assigned At Female [facility] Functional Status Date Assessment Result Facility 06-25-2022 Functional Status N/A [facility] Clinical Notes 02-04-2022 to 10-23-2023 Note Date & Type Note Facility 10-23-2023 Note F/U with OB and mate rnal medicine as scheduled [facility] 10-23-2023 Note [facility] CARDIOLOGY PROGR ESS NOTE HPI: Jessa Chatman is a 38 y.o. female here for tachycardia during Patient here per Dr. Angel for tachycardia in . She is currently 32w5d along. BANKING ANALYST started her on metoprolol tartrate 25mg daily [...] 2-3 months or as needed [facility] 10-23-2023 Note Patient here per Dr. Angel for tachycardia in . She is currently 32w5d along. BANKING ANALYST started her on metoprolol tartrate 25mg daily a few weeks ago, which as helped with palpitations. HR gets as high as 147 at rest sometimes. This issue went away after the of her last baby. Review of Systems Cardiovascular: Positive for dyspnea on exertion. Neurological: Positive for light-headedness. All other systems reviewed and are negative. [facility] 04-15-2023 Evaluation note Encounter Date Diagnosis Assessment Notes Apr, Spontaneous rupture of tympanic membrane of right ear concurrent with and due to acute suppurative otitis media (ICD-10 - H66.011) [facility] Other 01-11-2023 NoteOPERATIVE NOTE OPERATION DATE: 11/19/2022 PROCEDURE: Suction D AND C. PREOPERATIVE DIAGNOSIS: Missed first trimester. POSTOPERATIVE DIAGNOSIS: Missed first trimester. ANESTHESIA: General. SURGEON: Mouna Angel D.O. BACK SEWER: None. FINDINGS: Products of conception. SPECIMEN: Products [...] products of conception were removed using a 9-Spanish suction curette. Excellent hemostasis was noted. The patient tolerated the procedure well. Sponge, lap, and needle counts were correct x 2. All instruments were then removed from the patient's vagina. The patient was taken to the Recovery Room in stable condition. [id number] Evaluation + Plan note Diagnostic Tests Pending * UTI ([facility]) 07/03/22 [facility] 08-17-2022 Hospital Discharge instructions Patient Education [...] Follow these instructions at home: Medicines Take osbp-blz-jwjblnd and prescription medicines only as told by [...] 10/26/2006 Document Revised: 03/13/2020 Document Reviewed: 03/13/2020 [employer] Patient Education 2019 [employer]. 06/25/2022 09:59:21 Urinary Tract Infection, Adult Urinary [...] Treatment for this condition includes: Antibiotic medicine. Jlfd-plt-fboiszn medicines to treat discomfort. Drinking enough water [...] Follow these instructions at home: Medicines Take wqse-qjj-gbchrtz and prescription medicines only as told by [...] 08/05/2006 Document Revised: 10/13/2019 Document Reviewed: 05/05/2019 [employer] Patient Education 2020 [employer]. [facility] 08-10-2022 Evaluation note* Encounter Date [...] that she can go off it completely. [facility] Other 07-05-2022 Evaluation note* Encounter Date Diagnosis [...] calf. I recommened a consult with a cloth tester quality. Patient would like to hold off on the referral for now. [facility] Other 06-08-2022 Evaluation note* Encounter Date Diagnosis [...] or any other dysrhythmias. She voices understanding [employer] Other [id number] Evaluation + Plan note Diagnostic Tests Pending * [facility] Future App[facility]ments Appointment Date:07/02/2022 02:45:00 PM Scheduled Provider:Kwadwo SAEZ MD Location:[facility] Appointment Type:URO Office Visit [facility] Evaluation + Plan note Future Appointments Appointment Date:07/02/2022 02:45:00 PM Scheduled Provider:Kwadwo SAEZ MD Location:[facility] Appointment Type:URO Office Visit Diagnostic Tests Pending * [facility]rine [facility] Future Appointments Appointment Date:07/02/2022 02:45:00 PM Scheduled Provider:Kwadwo SAEZ MD Location:[facility] Appointment Type:URO Office Visit Diagnostic Tests Pending * [facility] note[facility] InformationNort [employer] Other History general Narrative - Reported* Type Description Date Medical History Anxiety Hospitalization History childbirth 2014 [facility] Other Hospital course Narrative No data available for this section [facility] No data available for this section [facility] No data available for this section [facility] Summary Purpose Family History No Family History [...] acute suppurative otitis media (H66.011) Referral Organization [facility] [place] Referring Provider First Name Devin Referring Provider Last Name Ziggy Referring Provider Specialty Family Prac brittanie Referred Organization [facility] Referred Provider Aldo Bolanos Referred Address ,[place], [place],[address] Referred Provider Specialty Otolaryngolo gy Referral Priority Routine General Notes Higinio Asher 023 12:56:47 PM >Received today. [facility] request us to send the referral and they will call and schedule patient. Referral was fax Clinical Notes Office [phone] Additional Source Comments INFORMATION SOURCE (unrecogn ized section and content) DATE CREATED AUTHOR 02/26/2022 [employer] [facility] DATE CREATED AUTHOR AUTHOR'S ORGANIZ ATION 07/04/2022 [facility] DATE CREATED AUTHOR AUTHOR'S ORGANIZ ATION 07/05/2022 Levy Justin [facility] DATE CREATED AUTHOR AUTHOR'S ORGANIZ ATION 01/21/2023 [facility] DATE CREATED AUTHOR AUTHOR'S ORGANIZ ATION 10/25/2023 [facility] DATE CREATED AUTHOR AUTHOR'S ORGANIZ ATION 11/16/2023 [facility] EPIC REASON FOR VISIT (unrecogniz ed section and content) weight management/ UTI4 week follow up-weight mgmt.1 month Follow up weight managementClinicalClinical Care Team (unrecognized sect ion and content) Personnel Name: ZIGGY DEVIN Address: [address] [place] [address] Personnel Name: STEPHANIELori DO DEVIN Address: [address] [place] [address] FOR RECORDS PERTAINING TO PATIENTS WHO ARE [...] BE BASED ON THE PRIMARY CLINICAL RECORDS. [facility]. provides no warranty or guarantee of the accuracy or completeness of information in this document.
== END 2023-11-16 22:28 | disposition home or self-care (01) ==
LOC: LAB 22:27
PROVIDERS: Visit Provider Obstetrics & Gynecology
DX: Z34.93 Encounter for supervision of normal pregnancy, unspecified, third trimester (principal)
CPT/HCPCS: 87081

== ENCOUNTER 2023-11-19 06:59 | Outpatient (OUT) | payer BC, SELFPAY ==
--- OUTSIDE RECORDS SUMMARY | 2023-11-19 07:02 | XMS_ITS | CCD ---
Author Name Unknown Address [address] [facility] [address] [place] [address] Organization [employer] Care Team Providers Care Wood Type Finisher Name Role Phone DEVIN LAM Primary Care Physician [phone] Devin Lam Unavailable LUIS M ., DR [...] Translations: [acetaminophen-hy drocodone] Drug Allergy Nausea (finding) [facility] (13 sources) Banana Extract; Translations: [Banana] Drug Allergy 09-10-20 Itching (finding) [facility] (8 sources) Melon; Translations: [melon] Drug allergy 09-10-20 20 Itching (finding) [facility] (5 sources) Melon Propensity to adverse reactions Unknown [employer] Other (1 source) Acetaminophen / HYDROcodone Drug Allergy 09-10-20 20 [facility]ository (1 source) Acetaminophen / HYDROcodone; Translations: [HYDROCODONE-ACET AMINOPHEN] Drug Allergy 04-10-20 21 [facility] Repository Medications Current Medications Medication Drug [...] # 90 cap(s), Refills(s) 0, Pharmacy: [facility] [id number] [address] [facility], 162, cm, 02/25/22 14:21:00 EDT, [...] procedure, # 2 cap(s), Refills(s) 0, Pharmacy: [place] [id number] [address] [place], 162, cm, 02/04/22 14:57:00 EDT, Height/Length Dosing, 75, kg, 02/04/22 14:57:00 EDT, Weight Dosing Start Date: 02/04/22 Status: Ordered citalopram 20 mg oral tablet (10 sources) Serotonin Reuptake Inhibitor Start: 02-04-2022 take 1 mg by mouth once daily CeleXA 20 mg Tab mg tab(s), Oral, Daily, Refills(s) 0 Start Date: 02/04/22 Status: Ordered take 0.5 tablet by m [facility] every twenty-four hours Citalopram Hydrobromide 20 MG 0.5 tablet Orally Once a day Active Docusate (9 sources) Start: 02-04-2022 take 1 mg by mouth twice daily Dulcolax Stool Softener mg, Oral, BID, Refills(s) 0 Start Date: 02/04/22 Status: Ordered Start: 03-09-2015 take 1 capsule by mo [facility] twice daily as needed for constipation Colace [...] 06/25/22 Status: Ordered take 1 capsule by [facility] once daily at bedtime Macrobid 100 MG [...] 10 day(s), 20 tab(s), Refill(s) 0, [facility] [id number] [facility], 162, cm, 02/25/22 14:21:00 EDT, [...] Range Facility Office Visiton 10-23-2023 Follow-up visit [id number] Jessa Chatman 1985 F Date Provider Department Center 10/23/2023 ARACELI COCHRAN CARD [facility] No family history on file Level of Service:88240 MI OFFICE/OUTPATIENT ESTABLISHED MOD MDM 30-39 MIN Normal [facility] PROGRESSon 10-23-2023 Beta HCG ( test) [...] sugar. She voiced understanding of risks. Normal [facility] PREG QUANT HCGon 12-19-2022 HCG QUANT 5 mIU/mL Normal [facility] Comment on above: Performed By: #### P REGQNT #### [facility] [address] [place] [address] Dr. Fadi Meza HCG RANGE SEE BELOW Normal [facility] Comment on above: Result Comment: 5-50 0.2-1 WEEK 50-500 1-2 WEEKS 100-5,000 2-3 WEEKS 500-10,000 3-4 WEEKS 1,000-50,000 4-5 WEEKS 10,000-100,000 5-6 WEEKS 15,000-200,000 6-8 WEEKS 10,000-100,000 2-3 MONTHS Performed By: #### P REGQNT #### [facility] [address] [place] [address] Dr. Fadi Meza PREG QUANT HCGon 12-05-2022 HCG QUANT 43 mIU/mL Normal [facility] Comment on above: Performed By: #### P REGQNT #### [facility] [address] [place] [address] Dr. Fadi Meza HCG RANGE SEE BELOW Normal [facility] Comment on above: Result Comment: 5-50 0.2-1 WEEK 50-500 1-2 WEEKS 100-5,000 2-3 WEEKS 500-10,000 3-4 WEEKS 1,000-50,000 4-5 WEEKS 10,000-100,000 5-6 WEEKS 15,000-200,000 6-8 WEEKS 10,000-100,000 2-3 MONTHS Performed By: #### P REGQNT #### [facility] [address] [place] [address] Dr. Fadi Meza CBC AUTO DIFFon 11-19-2022 BASO # 0.0 103/ul Normal 0.0-0.1 [facility] Comment on above: Performed By: #### C VDTBH #### [facility] [address] [place] [address] Dr. Fadi Meza Basophils/100 WBC (Bld) 0.7 % Normal 0.2-2.0 [facility] Comment on above: Performed By: #### C VDTBH #### [facility] [address] [place] [address] Dr. Fadi Meza EO # 0.1 103/ul Normal 0.0-0.7 [facility] Comment on above: Performed By: #### C VDTBH #### [facility] [address] [place] [address] Dr. Fadi Meza Eosinophils/100 WBC (Bld) 2.1 % Normal 0.9-7.0 [facility] Comment on above: Performed By: #### C VDTBH #### [facility] [address] [place] [address] Dr. Fadi Meza Erythrocyte distribution width (RBC) [Ratio] 13.7 % Normal 11.0-15.0 [facility] Comment on above: Performed By: #### C VDTBH #### [facility] [address] [place] [address] Dr. Fadi Meza Hematocrit (Bld) [Volume fraction] 36.9 % Normal 36.0-48.0 [facility] Comment on above: Performed By: #### C VDTBH #### [facility] [address] [place] [address] Dr. Fadi Meaz Hemoglobin (Bld) [Mass/Vol] 11.8 g/dL Critically low 12.0-16.0 [facility] Comment on above: Performed By: #### C VDTBH #### [facility] [address] [place] [address] Dr. Fadi Meza IG # 0.01 10e3/ul Normal 0.00-0.03 [facility] Comment on above: Performed By: #### C VDTBH #### [facility] [address] [place] [address] Dr. Fadi Meza IG % 0.2 % Normal 0.0-0.5 [facility] Comment on above: Performed By: #### C VDTBH #### [facility] [address] [place] [address] Dr. Fadi Meza LYMPH # 1.3 103/ul Normal 1.2-3.8 [facility] Comment on above: Performed By: #### C VDTBH #### [facility] [address] [place] [address] Dr. Fadi Meza Lymphocytes/100 WBC (Bld) 29.3 % Normal 20.5-60.0 [facility] Comment on above: Performed By: #### C VDTBH #### [facility] [address] [place] [address] Dr. Fadi Meza MANUAL DIFF REQ NO Normal [facility] Comment on above: Performed By: #### C VDTBH #### [facility] [address] [place] [address] Dr. Fadi Meza MCH (RBC) [Entitic mass] 28.4 pg Normal 26.7-34.0 [facility] Comment on above: Performed By: #### C VDTBH #### [facility] [address] [place] [address] Dr. Fadi Meza MCHC (RBC) [Mass/Vol] 32.0 g/dL Normal 29.9-35.2 [facility] Comment on above: Performed By: #### C VDTBH #### [facility] [address] [place] [address] Dr. Fadi Meza MCV (RBC) [Entitic vol] 88.9 fL Normal 81.0-99.0 [facility] Comment on above: Performed By: #### C VDTBH #### [facility] [address] [place] [address] Dr. Fadi Meza MONO # 0.5 103/ul Normal 0.3-0.8 [facility] Comment on above: Performed By: #### C VDTBH #### [facility] [address] [place] [address] Dr. Fadi Meza Monocytes/100 WBC (Bld) 10.6 % Normal 1.7-12.0 [facility] Comment on above: Performed By: #### C VDTBH #### [facility] [address] [place] [address] Dr. Fadi Meza NEUT # 2.5 103/ul Normal 1.4-6.5 [facility] Comment on above: Performed By: #### C VDTBH #### [facility] [address] [address] [address] Fadi Meza Neutrophils/100 WBC (Bld) 57.1 % Normal 43.0-75.0 [facility] Comment on above: Performed By: #### C VDTBH #### [facility] [address] [address] [address] Fadi Meza Platelet mean volume (Bld) [Entitic vol] 9.4 fL Critically low 9.5-13.5 [facility] Comment on above: Performed By: #### C VDTBH #### [facility] [address] [address] [address] Fadi Meza PLT 210 103/ul Normal 150-450 [facility] Comment on above: Performed By: #### C VDTBH #### [facility] [address] [place] [address] Dr. Fadi Meza RBC 4.15 106/ul Critically low 4.20-5.40 [facility] Comment on above: Performed By: #### C VDTBH #### [facility] [address] [place] [address] Dr. Fadi Meza WBC 4.3 103/ul Normal 4.0-11.0 [facility] Comment on above: Performed By: #### C VDTBH #### [facility] [address] [place] [address] Dr. Fadi Meza PREG QUANT HCGon 11-19-2022 HCG QUANT 90157 mIU/mL Normal [facility] Comment on above: Performed By: #### P REGQNT #### [facility] [address] [place] [address] Dr. Fadi Meza HCG RANGE SEE BELOW Normal [facility] Comment on above: Result Comment: 5-50 0.2-1 WEEK 50-500 1-2 WEEKS 100-5,000 2-3 WEEKS 500-10,000 3-4 WEEKS 1,000-50,000 4-5 WEEKS 10,000-100,000 5-6 WEEKS 15,000-200,000 6-8 WEEKS 10,000-100,000 2-3 MONTHS Performed By: #### P REGQNT #### [facility] [address] [address] [address] Fadi Meza US PREG <14 WKSon 11-19-2022 US PREG <14 WKS Obstetrical ultrasound, 1st trimester CLINICAL: Evaluate prior to scheduled DANDC. TECHNIQUE: Transabdominal and transvaginal obstetrical ultrasound was performed. FINDINGS: Comparison: Ultrasound 11/12/2022 There is a single intrauterine fetus. [place]-rump length is 1.81 cm, correlating with gestational age 8 weeks 3 days. No heart tones are detected. IMPRESSION: 1. Single intrauterine nonviable gestation. No heart tones detected, and no growth since previous ultrasound 11/12/2022. Electronically authenticated by: RUCHI FRANK Date: 2022-11-19 13:17 Normal [facility] PAP ACOG PANEL 2: 30 to 65on 11-16-2022 . . Normal [facility] Comment on above: Result Comment: Perf ormed at: WB Performed By: #### 4 [id number] #### [facility] [address] [address] [address] Fadi Meza Age Gdln ACOG Testing 30-65 Normal [facility] Comment on above: Performed By: #### 4 [id number] #### [facility] [address] [address] [address] Fadi Meza DIAGNOSIS: Comment Normal [facility] Comment on above: Result Comment: NEGA TIVE FOR INTRAEPITHELIAL LESION OR MALIGNANCY. Performed at: WB Performed By: #### 4 [id number] #### [facility] [address] [address] [address] Fadi Meza HPV Aptima Negative Normal Negative [facility] Comment on above: Result Comment: This nucleic acid amplification test detects fourteen high-risk HPV types (16,18,31,33,35,39,45,51,52,56,58,59,66,68) without differentiation. Performed at: =G Performed By: #### 4 [id number] #### [facility] [address] [address] [address] Fadi Meza HPV Genotype Reflex Comment Normal [facility] Comment on above: Result Comment: Crit eria not met, HPV Genotype not performed. Performed at: WB Performed By: #### 4 [id number] #### [facility] [address] [place] [address] Dr. Fadi Meza Methodology: Comment Normal [facility] Comment on above: Result Comment: This liquid based ThinPrep(R) pap test was screened with the use of an image guided system. Performed at: WB Performed By: #### 4 [id number] #### [facility] [address] [place] [address] Dr. Fadi Meza Note: Comment Normal [facility] Comment on above: Result Comment: The Pap smear is a screening test designed to aid in the detection of premalignant and malignant conditions of the uterine cervix. It is not a diagnostic procedure and should not be used as the sole means of detecting cervical cancer. Both false-positive and false-negative reports do occur. . Performed at: WB Performed By: #### 4 [id number] #### [facility] [address] [place] [address] Dr. Fadi Meza Performed by: Comment Normal The [facility] Comment on above: Result Comment: [place]y [place], Ink Technician (ASCP) Performed at: WB Performed By: #### 4 [id number] #### [facility] [address] [place] [address] Dr. Fadi Meza Specimen adequacy: Comment Normal [facility] Comment on above: Result Comment: Sati sfactory for evaluation. Endocervical and/or squamous metaplastic cells (endocervical component) are present. Performed at: WB Performed By: #### 4 [id number] #### [facility] [address] [place] [address] Dr. Fadi Meza CHLAMYDIA/GONOCOCCUS TALAT (SW AB/URINE/PAPon 11-15-2022 Chlamydia trachomatis, TALAT Negative Normal Negative [facility] Comment on above: Performed By: #### C T/NGNA #### [facility] [address] [place] [address] Dr. Fadi Meza Neisseria gonorrhoeae, TALAT Negative Normal Negative [facility] Comment on above: Performed By: #### C T/NGNA #### [facility] [address] [place] [address] Dr. Fadi Meza VAGINITIS/VAGINOSIS DNA PROB Kel 11-14-2022 Shannon species Negative Normal Negative [facility] Comment on above: Performed By: #### V AGINT #### [facility] [address] [place] [address] Dr. Fadi Meza Gardnerella vaginalis Negative Normal Negative [facility] Comment on above: Performed By: #### V AGINT #### [facility] [address] [place] [address] Dr. Fadi Meza Trichomonas vaginalis Negative Normal Negative [facility] Comment on above: Performed By: #### V AGINT #### [facility] [address] [place] [address] Dr. Fadi Meza Covid-19 PCR (CVDTBH)on SARS-CoV-2 (COVID-19) RNA TALAT+probe Ql (Unsp spec) Not detected Normal NOT DETECTED [facility] Comment on above: Result Comment: This test is not yet approved or cleared by the [place] FDA. When there are no FDA-approved or cleared tests available, and other criteria are met, FDA can make tests available under an emergency access mechanism called an Emergency Use Authorization (EUA). The EUA for this test is supported by the Mechanical Press Operator of Health and Human Service's (HHS's) [...] SARS-CoV-2. Performed By: #### C VDTBH #### [facility] [address] [place] [address] Dr. Fadi Meza US PREG TVon 11-12-2022 [...] MANUEL VEGA Date: 2022-11-12 16:44 Normal [facility] CULTURE URINEon 09-01-2022 CULTURE URINE Culture Observations: LIGHT GROWTH OF MIXED GENITAL SIRIA. NO POTENTIAL PATHOGENS SEEN. Normal [facility] Comment on above: Performed By: #### U RCX #### [facility] [address] [place] [address] Dr. Fadi Meza UA RANDOMon 09-01-2022 Bilirubin Ql (U) Negative Normal NEGATIVE [facility] Comment on above: Performed By: #### U A #### [facility] [address] [place] [address] Dr. Fadi Meza Clarity (U) CLEAR Normal CLEAR [facility] Comment on above: Performed By: #### U A #### [facility] [address] [place] [address] Dr. Fadi Meza Color (U) YELLOW Normal YELLOW [facility] Comment on above: Performed By: #### U A #### [facility] [address] [place] [address] Dr. Fadi Meza Glucose Ql (U) Negative Normal NEGATIVE [facility] Comment on above: Performed By: #### U A #### [facility] [address] [place] [address] Dr. Fadi Meza Hemoglobin Ql (U) Negative Normal NEGATIVE [facility] Comment on above: Performed By: #### U A #### [facility] [address] [place] [address] Dr. Fadi Meza Ketones Ql (U) Negative Normal NEGATIVE [facility] Comment on above: Performed By: #### U A #### [facility] [address] [place] [address] Dr. Fadi Meza LEUKOCYTES Negative Normal NEGATIVE [facility] Comment on above: Performed By: #### U A #### [facility] [address] [place] [address] Dr. Fadi Meza Nitrite Ql (U) Negative Normal NEGATIVE [facility] Comment on above: Performed By: #### U A #### [facility] [address] [place] [address] Dr. Fadi Meza pH (U) 6.0 [pH] Normal 5-9 [facility] Comment on above: Performed By: #### U A #### [facility] [address] [place] [address] Dr. Fadi Meza SPEC GRAVITY 1.025 Normal 1.005-<=1.025 [facility] Comment on above: Performed By: #### U A #### [facility] [address] [place] [address] Dr. Fadi Meza UA PROTEIN Negative Normal NEGATIVE/ TRACE [facility] Comment on above: Performed By: #### U A #### [facility] [address] [place] [address] Dr. Fadi Meza Urobilinogen Qn (U) 0.2 {Shan'U}/dL Normal 0.2 - 1. 0 [facility] Comment on above: Performed By: #### U A #### [facility] [address] [place] [address] Dr. Fadi Meza CULTURE URINEon 08-02-2022 CULTURE [...] Trimethoprim/Sulfame thoxazole >=320 R F Normal [facility] Comment on above: Performed By: #### C VDTB #### [facility] [address] [address] [address] Fadi Meza UTI (P4 Labs)on 07-05-2022 UTI Report Diagnosis Info Invalid Interpretation Code [facility] Comment on above: Result Comment: Osmani estradamatthew [...] on: 07/04/2022 23:05:19 Performed By: #### 2 [id number] ####[facility] [id number] [place] [address] UTI ( Labs)on 07-03-2022 UTI Method of Extraction Voided Normal [facility] Comment on above: Performed By: #### 2 [id number] ####[facility] [id number] [facility] [place] [address] UTI Number of Jars 1 Invalid Interpretation Code [facility] Comment on above: Performed By: #### 2 [id number] ####[facility] [address] [place] [address] UTI Specimen Urine Normal [facility] Comment on above: Performed By: #### 2 [id number] ####[facility] [address] [place] [address] UTI Type of Service Global Normal [facility] Comment on above: Performed By: #### 2 [id number] ####[facility] [id number] [facility] [place] [address] Urology Office/Clinic Noteon 06-27-2022 Urology Office/Clinic Note [...] Low estrogen (more content not included)... Normal [facility] Comment on above: Result Comment: Elec tronically Signed By: Jalen Robledo\.br\Date and Time Signed: 06/27/22 00:01 EDT Ambulatory Visit Summaryon 0 06-25-2022 Ambulatory Visit Summary JESSA CHATMAN :1985 Visit Date:06/25/2022 Ambulatory Visit Instructions Your Diagnosis Recurrent UTI Bilateral kidney stones Tests Performed Urnls Dip Stick Auto w/o Microscopy POC 83763 Your Care Team Attending Physician - Jalen [...] Urnls Dip Stick Auto w/o Microscopy POC 36765 (06/25/2022) Bilirubin Urine Dipstick - 1+ Small Blood Urine Dipstick - 3+ Large Glucose Urine Dipstick - Negative Ketones Urine Dipstick - Trace - 5 mg/dl Leukocytes Urine Dipstick - Trace Nitrite Urine Dipstick - Negative Protein Urine Dipstick - 2+ (100 mg/dl) Specific Galliano Urine Dipstick - 1.025 Urine Appearance Urine [...] to exami (more content not included)... Normal [facility] Patient Educationon 06-25-20 Patient Education Obstetrics and [...] this condition includes: ? Antibiotic medicine. ? Sifp-laa-guwtwfy medicines to treat discomfort. ? Drinking enough [...] these instructions at home: Medicines ? Take vuct-olf-utevxyg and prescription medicines only as told by [...] This in (more content not included)... Normal [facility] Coding Summary.on 04-23-2022 Coding Summary. [id number] Gh0bWw+PGhlYWQ+PE1FV EXaQ95maEXidN9UJ0rXF K5LVNUVEBLHWF5DDT9bq QB4IXghU2DrogEa DjgxjHNtKC47ELh3KTZ3 fMpjQSzrmM5ysZNyE3u0 MrQvRC77pH96DStfGZVi GkX5QxQqxjisrJWs M6dbBiWpiJBsQlh+PHRh YmxlIHdpZHRoPScxMDAl CgLujJirBW2sAh9xJUIt LWNvbGxhcHNlOiBj c6zkXWWaQNkcKG5ghFeg Z8FxdEB7MYAoa5e6Sx96 dHI+VXRiRZC8xUpsOTtz g891UkStk8uvBNN0 bXGoIZrtGIK7J15xe9Q6 HFCmUZXfFNH7fVD9uQ5x lMniwnvvH2GhhQSsPcN3 GCM0tHFxuG5nqKam xitzrB8nLpj+Y84WMT4B XVUBWW7SFua1H1SdKmto dHI+PL34QNHwJY28uKNb lYPtp2oetQj9PfSz YDGfSAP1qFtfDXxgx8Bz OEYpR00ujBQdz2J5DMKc lJsqrJOvDzIicJF1yK3v EGtxfcljc1cfwnlh Zcyuf6ulsi17rV14V37c XQaoMAFxNJI2MRDkUCVd ySkdix2oiH7nCd1+IDxj x7fhj2fkvBw7JoNn MXCwpdIpkVjmPUL6m7Ke Vx12M2XceBnln1HeSce4 ri96aLHxf6T1rRK6WQmx ONPpvQ3cINysInK8 YDDmCqSueM96aJCzFAcx Zx5bjNukdJiyEQ2vCBEn qktcMNCjgD1dSGRinHFq wOezCX3dBOQqfzlc n177TpOxAYM5XFCmgZKu D3KimJ0kSqAkATCtHYDt Z1VrpTDoAQieA992PPwj SfC0KJWtflEsB5Nt RTRicUguYcX2d6T8Ti1I l3TsnhyjFUM8BNfeNST6 YdZ5KiQpCcS1J5OhGkg1 YCOuoHlgMS8tU3Bd SVWimfwngugnyAH0JISo MUQasF88sKFiMDyrPe8b s3O0s637AAGjXPRpeS77 Ju5zxVmqASSbaWFT bK0antrzt8dpvlkmYqCw LBPdANf5HPl6TQCwsXko PjTzUHC8SeK6EEV5nGIo kM2tpOyiuvmgaV4e Oyc+N45tyM9wYEZ9SYQ2 ouvdLWPjloNzDA36XO86 O4HoTccedRDxxGQ+PGRp meDwjMdmOP2qKdAe z3naz2BdJQliG9RuEAIf JBfxPdi0CKCdGNC3bPW5 aW9dLWUeHVrys6P3gRY1 R9LadzDzkr9ol2zb HHWePOjjE32enDGrl0Q6 YMSupAP6YEFgbWjjReIm fL66Nwa+XWPdtZmpo3Ru Lpyxw2ytc1hhvAu1 IjMwJSIgdmFsaWduPSJ0 r3UaVi87K35pKLxbYDCj LIFoDHJeMBZahBpitu5v fO4qHz2+PGNvbCB3 gCW9aV3xUAEkTyJ2ZSjh Q098WmCeyBQpUbafg4eh f5nwhOr2XoCoREAbdjOb oKfbXCO3t6ZhSg06 X38fIAmnAJGsFWBdMPAy VHKviBfwov5plE0bWr1+ LX6ku4xrpf48sM65pFB+ BXFwUKM3nPqvEMvc RRLlhU4bOQhmAfO9VZXr SaZnpA18vJAdNMbpAp2h pZrwhOkrHG2xATEmwbmh z281QsEek7zySNLa uDRyYFmrEMW2H80rn9B8 TEWuPASfWDM8qEN0yO8w bGlnbjogbGVmdDsgdmVy yRhsUNboMJcuF212 IHRvcDsnPlBhdGllbnQg DeVhGFj3A7KdYqt8YMXe tIsfZR4bpDYsIMujEj2s vYgyqHdrQP1sERJd krzml696RcAan6ftYATo cWJgVPtiQBM8I38dh3U8 GOInZFMcIJK2gBM8eT0o bGlnbjogbGVmdDsg qxMpuZvlGMkhUMrvG427 IHRvcDsnPkJpcnRoIERh zCE0EO84LP30eAPol7E8 pHX5M6DxWKPyvlmy isjroCN2FPDuUGTfyX07 Dn2qhWzlJv7wFQOfDMO3 MUPnwSNcH7EnlN8aNdBr DYHsJRKeA0CabXUy PTdcG837VSvwNyE6NCMs atKsC1FxXGJzgEmlObL0 v3X4No2EY1C9FS57TJ54 yNJqb1O5rUL0V9Fo ACKzzjnioypcqBA3XEUa WSNxrT25Qf3daKehYj6z WNNsKAX7HCNkwYYzY7Sl hU5aSdZmBCPlVMQx I1VwvVVcVCidZ002XFcw RxH1VHFgvsMeR7TcGYGb aCfmFyR9s9U2Nh7OZCp1 EA86NE16fEQri1D2 gPA2A5WwYOBhgvthscwt cBA1HFNwNDKmxC06Dr4z aJduKc1vQRQsHJJ8BUXu nIFeM2YsvS7lQhSs QGGfCEBrT2GpaCOyUUek A961ZOzxSzY2EWXkgaWj I1OpNDCjmFayAcV0o3R5 Gy4SPKHkAW50BJG2 mNR6FK21UG12F3CnCvys dGFibGU+PHRhYmxlIHdp ZHRoPScxMDAlJyBzdHls LB3mZn6vMZVgVKAr sWtcpDXqThJta5gdJQZy LRpxNH8jmYsxJ9FdsMK8 VFUbx2x9Ly65M38zM3Vc dXA+JDIrxDW6oZB8 zW9sNkQhSgA7WYzfT189 GjEykJAeHauaw7ehb8gb wQf3JtD4NMCodgMayOsa QXS1a7ZsKu55V40b IHdpZHRoPSIxNSUiIHZh kXfndw1itX2fNt1+PGNv zXP6uQT2sX2oRrYdXwJ0 AFlxN977HhHhjQWt Ynnrd8adc4dfsNy2DzKy YUYggkCusAjpMKA3y6Cy Ph36R0FsqJwcg3EmEjz4 by85bYNey3G9oDH7 D8EkWWRfhlaysRRnwAwi FB2hXXAucltlSLDacJ1b OWDfG3i0OpJtPqY5MCza A0PfruK6THNslQEz YKdkUPJ2R39bq8J0UMKc JJMnWCC1tAT2hU4myBnw bjogbGVmdDsgdmVydGlj DJogYKosN673CWOy lUjqUXRmyK2ePCLvcJLs aQpuGH0dKTHfvqclMs9F UJVVQARIXP9RKJdtwSP+ GNDsYCW5iJkzYUcr FRGfoD1cBFXlH6w9SxNu CcX6HSijN4NiDZCuhiwd Zu52mD5fPeHyLsP1WUab M3HwngC8UXVkkTWw LVwkSUP1O41xr0O9FRCp WKWuWYG5lPD7iK4mmNsy bjogbGVmdDsgdmVydGlj EKlcBEdmE838MAYn aAbvHiG9RjN8YcE9YZY2 I8LuVkl3THScjMmhOG4i tYCcKIhiGs7kvYkmsOkf SB9kKBRxirjaEDSu qL4lNWCtsBUeeBwaGX6u IWHgosmhq117BtZoVSL0 ARGdrMAnF9UcjC9tPeUj SSBsAUCrB8IytZRk LOelZ428WJrdIiM2FDCn leKgB4RhAGSdbOayQxK6 k3E5Hw7yWOHECZTowdfy dGQ+SLJvHEM1zGpa PVqwUIEthX6mHFSpY3a1 QmHwEpI5OKxgF1NmIDWp kywvTs95cJ8rXeIjFiJ0 GIiqU9ZtwkJ9OITd mNOrGSqcFGP4G37cy1J4 PAOqRDOhPBS3vMZ9qV7t bGlnbjogbGVmdDsgdmVy tRmfKNfcSIynU110 IHRvcDsnPkZlbWFsZTwv dGQ+CLLdJOE6sCrgPIct ZEJoqT2jJXEoF4b4NpVm TeQ9BUvsD3TuKWWf uaigVw13kQ4iVmZvHaX0 YFhsL2QybjL3SUDsqHJc IMrtRIP8E85jz7P2MRDw CEPeBOE2oMA9mA8i bGlnbjogbGVmdDsgdmVy cKcxSIsgSWvyN844GKQg mOqvXjnvWlUEnc4kTS7x ZjwvdGQ+AN28ys55 T6MjBbjsSfi2IMLuJKV9 gVA1dH5nZCVlBLeyt4C3 aMG0C4CudfUusj0ap3vy BDWdJQsmM60pqFKz b8R8JNDksQA3JWVgeNfb VdZfpM22Shd+PGNvbGdy e7DlTfyyn4smr6nymDf2 IjMwJSIgdmFsaWdu WWO2y5VfCu63K97eBXru ZHRoPSIzMCUiIHZhbGln qo0tfF9hLk9+PGNvbCB3 sPL5vN1aJiLvSaZ8 OLwbY394IaRkxKGfHini r9cln4txxWc9ByVnAGKt qbZhrRalCAK3u6DoYk98 Z7QreHwbq9ZkPwp9 gk19tXIhp9T4pMR7C3Gu TGSygjhaqKFhwKstLI4i UXKdkourVPZvpW3qXRKv W8h6ZmPpNkX7QJco S0RcyyN9HZWdmPWgODBd rTUFpA6videwp1uwasml ZxGrEVWkVDr7PSj4OWMg qAgoXhSuLFW6PeJ6 DFX9jMIumZ3nePmritlv lO7dNck+EFm6z1xhrKNa WJ1zaGG1XA64TK93vAUe f6W2yAA5O5KzTJUj ndisruejrKF6UNGxIALn fJ73Eq5roUrwNa3hQMWt FWY4TDHbsGJbB5NszF4j YsPjYTMoZSKgB0Ys oMKyPQjnI871JNitGrQ5 CXSqhcMhJ2BpDVWwnHri HaO2q7S4Oi4QUI92WB26 RS93gBGhn7U6kVW4 B6PeDIExrjovouxivUK4 PCYdJVIanT58Dg9ywBfp Yv1gHUZhDWU8DXLlfCGb X9OylT8kViMzBFNf AAExR4PdcTRbUYwjI792 APhgLrL0NMDrrpLvG5Zi BFZdiHimPiX2q6W0Ra3P Uk94OP07VY11wXFe l7B8mZU8T4NpPBCrqkbf sdgieVW9XNUpFFTksS63 Sl3ykTegJf7vAOSlRMB2 QUSqwQRgE4UsyA4e WaFaNEVqKADaM6RhqSFp ROfgB197XYgoJaS3RNRb keCvT7FiBVHlwRghKpL2 m2K6Li2WAMeiufh9 F7HjDjqzwOU+TT47JFPn PV31cKPydKZsa2swsJq0 LvKhGPKuSPZ3vJmsMGtv o5ZfPDOdL78gsWBp c2U6 (more content not included)... [facility] 04-18-2022 Reminders - From: Lupis Turner To: EU - Clinical; Sent: 04/15/2022 15:02:18 EDT Show up: 04/18/2022 08:00:00 EDT Subject: Urine culture Reminder/Recall Urine culture done on 04/15/22 addressed by ANNITA Smalls [facility] C Urineon 04-17-2022 Bacteria identified Cx Nom [...] Locations R1: This test was performed at: [facility], [address] [place] [address], [address] , , [facility] Comment on above: Performed By: #### 2 [id number] ####[place] [address] Coding Summary.on 03-13-2022 Coding Summary. CD:[id number] Gh0bWw+PGhlYWQ+PE1FV NEsE17gpPPzhY0GY0tAU W5YHGCAPWZFGT5WOT2ry DF8LDmbK1EfbnRj NqugyBThQS65AWo2HOK5 mQsmAWggpT6puTYwD3v4 LgUfCI76jQ75CFemDBGi JqD4EfCwxfiwxKTo P2wmYwEzdIIjJvj+PHRh YmxlIHdpZHRoPScxMDAl NjDtiSucMI8qEo7yDRCx LWNvbGxhcHNlOiBj y1tnDSCiCWywUH2mfCxy I5IkrNQ0VXSfp9p5Cw48 dHI+CTOmFEB7mMmpMYgf m651ZbFjk1lvZVL1 jZXkYBlnSZH9U67wz1I5 KHKwDDXsWSS3tHD9xP4p lZfehnuqJ4CdfAJqVrD9 SLP0pVHqfC3paVas kcujfP8aKnq+T15AZF5B MCMKXD9GBeb6C1QuYncy dHI+EK33SJDiXA54vRCr bSJvm2qgtAc2RwWw SFNtMRI8sOovHHopj6Rt DISiN52ezCAzt0U6AFDa zMpftWTtIbHalRF7mS8k JRlakusmt6dmrerk Slouf7zvuv89xC21J26a QLtsSPNjQSB3PMJfQKLv zIjuln6tyB3rEu7+IDxj e1nej0nfhDo2WiUf YSIlfsCcrIkxETI4f9Dj Hp73X6LqiHdga5AuFwb0 dt79mFHip6H2yAE2AOwu JYJjlO0iRObjIfK3 HJDiLhItzJ58dBSvPYnj Fp8wiQdfoFsdKH9nPAZt vcbhDPGxsA1iAIToyAGr zKrqVR7cQJFziagy d274VqAkGZT5WRMbsRFz T6OddR4eZqAtVUJdGJRx M8BhkYLsOEibV545ORwp LaL9HKBmpcXfQ8Mw SSUbzLteSrD5k7T9Ia6Z u3FadwbxJED0FZtsQQP0 ObE1OqXoAxC1A6TjUwj6 XZYrdDziWM3oI8Mo WZMozgfkxuwgpOT9MEUd EXOjsB62oQRkTDazBr4y q9V5t948XJWmOOFanQ92 Wr9cbCqjNPEnbYAZ nO1drkosm3sqdaoiEpUo VPFpAHr3AHd2QKTnrJis NcBdGLB1TgU0UOP2sTVh lJ7aeYiqbpmgbS7e Oyc+P91idC3cKEJ5FAU5 iisdOHHnsuHcUN27YS91 Y8DwDjnypUFmzOM+PGRp soRqsQgaEB2nPwIq w6rgv6XrGBxjD5UmSVAe ZCezZhv3CIMxVKH0iIC4 xN0yMCBwFEmfe2D6dYJ4 W9XnhmZfya0jx3nx NUKhXSczM95jlPGgr7P7 NNAtaNW2OAPqsLjyEpAz vH33Lto+WHVmvEcxt3Xx Dsctr8kcg2druWq1 IjMwJSIgdmFsaWduPSJ0 s4EiWb67X63uMSljVGOi JSJsSHLbDEVasPbwxf8y qO5pYx1+PGNvbCB3 gYE8wO8gBORhYrE2MKch G482XgQgqSFzOmhim6xl y2intKu9YqGuGWQwvaGi rGtkCJL9t9UtIc72 F15jVKohUXPbMBObPXPw MYMwnWppbz4znU5kAf5+ MJ2ri5nolj88rB54bJZ+ KKYkPEI2kUwkZEss GBBwqX7lBRriIfO2VPJm BuZxwN76wKPzZHkxZm4q dGsksAhiTZ2aVQFtwpla c031GaNla9brXKYc pILqAZdzCJI2M48tq4L1 EBGlOUHeSQY1rXX5kT3x bGlnbjogbGVmdDsgdmVy mZqfCUfsADpyO334 IHRvcDsnPlBhdGllbnQg RnIbPJr1S7DnBjw6SIOd oZioWQ8caKAlFMrgGs5f eOzxpFynYU1tZXSv pdhuo419MnTmd8lnYEGb zNKhXXlaDRD3U49or1Z2 WUCfXQBrHMZ6jZL6wM8v bGlnbjogbGVmdDsg xpUdoUboDTtbNMmnT671 IHRvcDsnPkJpcnRoIERh hXN1LJ40LB61jGDhv2Q5 xLZ0M2OgHFGkzina bfgstCG5ZMCtSDDkiJ24 Ln7raSzcQk2hRQRcTYR4 KTNmyBXjG0DqfZ8zRzGo JTGoHEWyJ0RsjFEi WQojV300UYriOxX1QWRk tdQzB2CcJIWjiQhuCqK0 b6D1Oo9ES6R9ER32XG02 lNKis4G2zHE0I4Nb JZGetovxfyzxoLF4PNFj OLZkqQ06Ew9wsNifLr0u TXByAML3NYZtpHTgU3Xk gQ1tIiFpZFDsJIAs R0LfkGFsVZmoV179VBgj DeZ8CPHvhzBzN5KgJHFn uXpsKgY2t2W1Pl4RKMp5 PG08QQ87rRPaa3S2 eAB2A6KfLOTgooxqhgvs gCT8OVAnBNEnqN06Rp3b pAuaKd9dELYnRGS0DUSf uHDkQ4SrdQ3qAhMc TMAaEYFhB6CdbMUqYLnq M589FIqdIaU5CAAolgXa N0DtYRXksFyyJlU9h2E2 Xj1FSSObGZ66UPN2 mHW7VZ35VH58R6FsVbqf dGFibGU+PHRhYmxlIHdp ZHRoPScxMDAlJyBzdHls OH5xRq3hJHGmIGXq hOrhbZTgRsXhu5uzMSQy BOguMB7gdDgmJ3JgqTW1 VFSfp7i0Wr99I03iB9Rd dXA+UOEkaCD5lPN1 aW3hJgWiTeJ8BFerC306 FpApjRIhKpgwk7cnf6vu iLj9MfS7RLRxhdZqjWir ESF6h9DmMc62V42d IHdpZHRoPSIxNSUiIHZh mDjktq3irO4kZj0+PGNv dXI6gIU8qY2bGqMgFzY4 YHwdV416UdYwxLEr Zuetv6vrv7yxjNn4BrZl JJFtvjTxnXbeZRW6i1Fo Hu83J1VgqKgsr4UdFrz0 ni84vARfy7I1sOE8 J3YpYSKnztubxAKmwVzp CV4pUPUqonzpVBYrrX5g OATzJ3u3BeWtLvX0HZum G7RawmS2JUMmbXYy ORfnCSP9B03im9X7LSMb DTKzKHP4xFY5aN1wdSug bjogbGVmdDsgdmVydGlj ZXonCRhzQ218UDPw iTrdLJKsrH1iTJYsrEXz qWhbES4jENPpkeenVl1E OOHYUWTKEQ1VNFgwiYJ+ LXZyIPQ6iLpnCBoy ESTqqB1fPIOoQ5p4PtBi VdJ5AIkiE2PlXCWxzwix Ze10mU1rAzOiBuG4ZBae V3IkwdI8DFKbjUBk BAunOUW1J96vf0Z6MSPt NTPlNYF0oUB5bK6rdKka bjogbGVmdDsgdmVydGlj VHgcJBdlX176VYBr nPogWkV1DiM0BtI0PED2 H8KlKjd1EPNcnIgpRU9q yDSeTXlvWu1nzHhvxTir SX4tPGGohpyzARXp lH9rRJCyeDXcqFobVH7b RMSzhttey917YsAkHJV1 ZRXmlYFtW7VkxF3zGgFq GPUjGXYyU1IwnSCj NZxfD927RDpdHaZ0TWXd yhMnX5TkQVUzqOfrNzW4 o8L2Qc4oGGCHEWGuipzu dGQ+OOTcQYW2nNob CGqeDODrgZ0pPZJcP0y9 IlEaVtL9VEtqI6DmCQBo pcopBu02nA0hKtMqIjH5 XKlmP5VcdcY2SLHa rATeEXukIJE9N23su1P7 HPNfMSPeLUI7pHR9bM2o bGlnbjogbGVmdDsgdmVy aMipEXtoUGoqF532 IHRvcDsnPkZlbWFsZTwv dGQ+UEGmYJK4aPirXBrk EXZdaB1zAHOgZ6h0AvOz XwF5MKhrQ6ZdFGVr kjrvNx69kC0sDkXyOxZ4 CEesA2DdurB6RUBeuPFy UAbrRFS5C33dt1E5YBVf HDHoYMV4fYU1lY6u bGlnbjogbGVmdDsgdmVy dIihDCpuKSljO455TLBd nBunIxjcBrNGad7fFP8x ZjwvdGQ+TU23is82 X3ZyFntoSgu3VQLcGVC2 gSZ9kW5lBWUxUCblv5G6 rRG8Z6RosnFfxy1bv7sx HXGhHBaeP52srMVx d1T0PJOtmHB5EZIomKai JbBfoE91Ztw+PGNvbGdy x0PfOthon1izs5nsnVp9 IjMwJSIgdmFsaWdu PZS5w3CbWc01F43oFJmx ZHRoPSIzMCUiIHZhbGln po3ckU2vLu1+PGNvbCB3 fBV5mP1bEcRjYkM2 HUwoE828LdGsjVNcYyhv p0gzi6drrRc9AoDrXEHp isWptKsqIJM7v8VxHb74 S3FocVroy7UgIdb0 qr23vKNih4N9hYH4H8Wk QBPkbjspqGVlyDcuCI4g IPRdhnibPQDgvI5qHJKn Z7m3IaHbVbX0TSqg L1BpgyD8ZAIogDOfFRGq lYJPcS7ftbqow9kfpstc JqKfRHXhBVm9DGt9KKIc jDmrCxMiJCY1ZcS6 VEY6eBTkzM3wtIbyqymn tU9tHub+JJb9w1ujuGYl ZT2qvNX8KG23WU55mDOa t9W3bQO5M9GyGQVx dshrdccehKX1RBXhWVLd iD82Rx1yvAflVi2mKEVu XPF8OURljHDgP5CdpB0m IoJaKCLtWCPxA4Ba kKBjSGvkI764SSgfLpD5 NHDzhvHdI7GhYKHqqGzk XnN3j3D8Be2DMB96BV00 WD95uNAqr4C4oRT0 A3WnXTDwswtclveefZW4 WSUoXPSsxK49Ak1svEut Ai1dVCDsXSS0FBGouCVi S5HruF1gAnJcQHQb TKQmB2KlqNGcZBjzR354 HKbxUwI2ZOApflFlR8Lq YDWctUixWeA8z1C8Sk4O Bo18CX49NQ75oELq e7T8fDK9H4TaQCJehlsu papqoXS2DGLoQSNcyK51 Pn8rrRuhKt2xGKVoFUG9 RTPykOKoS0OgnM4l SlBsEDXmDXGpI6KajDFs WRrpZ330XKioKqK1MPWz vgMgP2NbXUUogIljCoU3 s1L1Sx8VFUelaod6 Q0NxVaidnOE+JF16CELq RC70xYRgvLSim6mrjHb6 PvLuLDOxOKT1cCpzPLpk w9HiBRPuS09wfKYa c2U6 (more content not included)... Normal [facility] C Urineon 03-08-2022 Bacteria identified Cx Nom [...] Locations R1: This test was performed at: [facility], [address] [place] [address], [address] , , [facility] Comment on above: Performed By: #### 2 [id number] ####[facility] [address] [place] [address] Reminderson 03-06-2022 Reminders - From: Lupis Turner To: EU - Clinical; Sent: 03/06/2022 14:52:59 EDT Show up: 03/09/2022 14:52:00 EDT Subject: UA micro, CX Reminder/Recall UA micro/culture done on 03/06/22 Normal [facility] URINALYSISOrdered By: Nazario doyle on 03-06-2022 Bacteria [...] PM) Normal Negative [facility] UA Auto SS [place].plasma/Lithiu m.RBC (Bld) [Mass ratio] 0-3 /HPF Normal [...] [Mass/Vol] Negative (03/06/22 2:52 PM) Normal Negative [facility] UA Auto SS Specific gravity (U) [Rel density] 1.015 *NA* (03/06/22 2:52 PM) Invalid Interpretation Code 1.005 - 1.030 [facility] UA Auto SS UA Spec Desc Random Urine (03/06/22 2:52 PM) Normal [facility] UA Auto SS Urobilinogen Qn (U) 0.4745520 {Shan'U}/dL Normal 0.0 - 1.0 EU/dL [facility] UA Auto SS WBC Auto Ql (U) Negative (03/06/22 2:52 PM) Normal Negative [facility] UA Auto SS WBC LM.HPF (Urine sed) [#/Area] 6-15 /HPF Invalid Interpretation Code 0-5/HPF [facility] UA Auto SS Urinalysison 03-06-2022 Bacteria LM Ql (Urine sed) 2+ /HPF Abnormal Trace [facility] Comment on above: Performed By: #### 1 [id number] ####[facility] [address] [place] [address] Bilirubin Ql (U) Negative Normal Negative [facility] Comment on above: Performed By: #### 1 [id number] ####[facility] [address] [place] [address] Clarity (U) SL CLOUDY Abnormal Clear [facility] Comment on above: Performed By: #### 1 [id number] ####[facility] [address] [place] [address] Color (U) YELLOW Normal Yellow [facility] Comment on above: Performed By: #### 1 [id number] ####[facility] [address] [place] [address] Epithelial cells.squamous LM.HPF (Urine sed) [#/Area] 3-4 Normal 0-2 [facility] Comment on above: Performed By: #### 1 [id number] ####[facility] [address] [place] [address] Glucose Test strip (U) [Mass/Vol] Negative Normal Negative [facility] Comment on above: Performed By: #### 1 [id number] ####[address] [address] Hemoglobin Ql (U) Negative Normal Negative [facility] Comment on above: Performed By: #### 1 [id number] ####[address] [address] Ketones (U) [Mass/Vol] Negative Normal Negative [facility] Comment on above: Performed By: #### 1 [id number] ####[address] [address] [place].plasma/Lithiu m.RBC (Bld) [Mass ratio] 0-3 Normal 0-3 [facility] Comment on above: Performed By: #### 1 [id number] ####[address] [address] Mucus Ql (Urine sed) TRACE Normal [facility] Comment on above: Performed By: #### 1 [id number] ####[address] [address] Nitrite Ql (U) Negative Normal Negative [facility] Comment on above: Performed By: #### 1 [id number] ####[address] [address] pH (U) 7.5 [pH] Invalid Interpretation Code 5.0-9.0 [facility] Comment on above: Performed By: #### 1 [id number] ####[address] [address] Protein (U) [Mass/Vol] Negative Normal Negative [facility] Comment on above: Performed By: #### 1 [id number] ####[address] [address] Specific gravity (U) [Rel density] 1.015 Invalid Interpretation Code 1.005-1.030 [facility] Comment on above: Performed By: #### 1 [id number] ####[address] [address] Type of Urine collection method Random Urine Normal [facility] Comment on above: Performed By: #### 1 [id number] ####[facility] [address] [place] [address] Urobilinogen Qn (U) 0.2 {Shan'U}/dL Normal 0.0-1.0 [facility] Comment on above: Performed By: #### 1 [id number] ####[facility] [address] [place] [address] WBC Auto Ql (U) Negative Normal Negative [facility] Comment on above: Performed By: #### 1 [id number] ####[facility] [address] [place] [address] WBC LM.HPF (Urine sed) [#/Area] 6-15 Abnormal 0-5 [facility] Comment on above: Performed By: #### 1 [id number] ####[facility] [address] [place] [address] Consent for Procedure/Surger yon 02-26-2022 Consent for Procedure/Surgery [id number] 9#1.00CD:127 Normal [facility] RAD - MISCon 02-26-2022 RAD - MISC [id number] 8#1.00CD:127 Normal [facility] RAD - Ultrasound Reporton RAD - Ultrasound Report [id number] #1.00CD:127 Normal [facility] Ambulatory Visit Summaryon 0 02-25-2022 Ambulatory Visit [...] JENNINGS, Kwadwo Andrade Where: [facility] Flo Normal [facility] Patient Educationon 02-26-20 Patient Education Urology Kidney [...] these instructions at home: Medicines ? Take zdco-dra-opgafws and prescription medicines only as told by [...] 04/13/2009 Document Revised: 03/13/2020 Document Reviewed: 03/13/2020 [employer] Patient Education ? 2019 [employer] [facility] Urology Office/Clinic Noteon 02-25-2022 Urology Office/Clinic Note [...] urine The Urethra was dilated to: 18-30_ Liberian with sounds. urethra bled. dry. Removal: Cystoscope [...] [facility] [address] , [place] [address]- Additional Instructions: Patient Education Kidney Stones, Ztaf-sn-Meev Devonte Nickerson personally scribed for Dr. Saez [...] Grandparent. Diagnostic Results Tests Reviewed: Reviewed UA. [facility] Comment on above: Result Comment: Elec tronically Signed By: SHAYNA JENNINGS, Kwadwo R\.br\Date and Time Signed: 02/25/22 15:21 EDT\.br\Electronically Co-Signed By: Devonte Echeverria\.br\Date and Time Co-Signed: 02/25/22 15:19 EDT Pre-Certification Formon Pre-Certification Form [id number] 0#1.00CD:127 [facility] Reminderson 02-10-2022 Reminders - From: Kristyn Echeverria MA To: EU - Clinical; Sent: 02/04/2022 16:03:36 EDT Show up: 02/08/2022 16:03:00 EDT Subject: Urine Culture Reminder/Recall Urine culture Pt is currently . ANNITA addressed [facility] C Urineon 02-07-2022 Bacteria identified Cx [...] Locations R1: This test was performed at: [facility], [address] [place] [address], [address]- , [place], Normal [facility] Comment on above: Performed By: #### 2 [id number] #### [facility] [address] [place] [address] Performed By: #### 2 [id number] ####[facility] [address] [place] [address] Coding Summary.on 02-07-2022 Coding Summary. CD:[id number] Gh0bWw+PGhlYWQ+PE1FV DCwE09tsELmbB0DI8eAA A1NEEMWSIELCH2MGT8bp TL0RUbmE1DvkmCw WpphrXFrXP00OMg1DSK7 fHviRKxgqX1ypMUdJ6s9 ZyUkBG26yM87RGtuSQMx NpE1ZoWdutxglINx S7acReMtdQOgKyp+PHRh YmxlIHdpZHRoPScxMDAl GxDayIcvQT7mQf3dWIWk LWNvbGxhcHNlOiBj q9fyHYHoKAfuAJ1gnWuj J1ZbiMR2WTZby9u5Af26 dHI+RXWbWCQ3kGgsOOan y168NoDwq6duNTR4 cIAgFSrwOAK1T82kx5Y3 IADzRCPqSVF2aBB0cW4u uJhjtctqP6NfjAWwCpZ6 RWX0xDUsbL3ytWjl wqbvwP1gQcm+A13MTP5X GAZMDX1YWjk6W4KlJrgc dHI+ZY29BYEeKA95gEUs yWOoo5ysrUw7BdIt TOHpEAW3eVmmLRzce3Ay JRHdY66piWEai5N6BPUr mOgohUZyWuRimZY6sU7l FSkzlglcn6oxtphr Bgzyf7nnza30rF31H36k QCkvBCDiAVC6XTEsXHYx mRnyro4mpF0eZv6+IDxj f1sod4dbvOy7NlBc JQSwdkWnlUuoKNH3q2Uw Bg22F3VluKeqp9ZrUja1 te66nUYny4T7qPL4XZgu JSVaaC7zIGtbGpY6 CBDoIeQlhK35nNRkMOsy Np2qnQragLpvWA5aYETm qwuoLCRpqS2vZPTjcRAn oWzxIL0cUAAefsyo j340RfIpBYJ5KFLsoYSw B2MwmY8uGlTrTWAtEZRh B0EncBRjNZhaG004NWud YtU7IXFixoCtZ7Tu KCNeuCktRtX2a5I2Rv1T r7OypsihEAZ3OBwfFVOc UfStHkGqZxE8H7XiFmk7 QXTynJtrNE8dB0Im QGTkhlxcsuqqqHF8SCPh FLJbpS05sQRzGEbhKv8l x7X9l220DNOrJHJftF03 Pv8ecQsbGSIefWXW wQ6cmsjll6mggucrPbBs HHBjRAg4KDs5LXIncEmy SkApMRI2AoQ2INI3uTJs gO4vlJhtodmnuZ7l Oyc+X35omC9dALM4AGJ5 bzzuLJNoemLrXD68AJ01 U8ZuWcubkNQooOV+PGRp byLfmFddDB5kTsVl e1wmq0FaDImsL9JpNZEz MDhlBdb7LNEjTIT0vWE9 yL3oVRLgRPkps7A2vYM6 H7TdmpSttq3ud5rh RCGjZTrxD14dpAPbi7L0 CDZktRQ8HTJqgMomNiCg fL98Qpv+XFEcbGciz2Bp Wifud1iyp7gjiOx5 IjMwJSIgdmFsaWduPSJ0 g9FfUf33H90sBPjwUXPx OTEzJZPqQPVjwPeysa2b dD7dDy5+PGNvbCB3 gOL5tI7eEKPlLyS9TKky R760OdEbdKYrRviao2hp a7nxfOl2YbBjHGMoggVd vMvyLHL2a5XlUu57 M23pILtfVIOwTBSaOPAp OMZeuOjssm1siZ9tTl4+ FW4ho0tyte01tQ22lUZ+ IEDjMBF1cJiiQSrq FVBtiA7oYDbkSkN9PCHy QwNmmB00vTImHFlrNm5b fJbkrUlvDQ9qYDBgqzzt s340BeDvz5aeDZEi cKBbRDqqFDV4F68vz4J6 ZTBhPRAhSTH3kPA3yQ8k bGlnbjogbGVmdDsgdmVy eCywAMjuOFfdV391 IHRvcDsnPlBhdGllbnQg RrDvXAb4F3YaFbb9SWJn oLpiTE6vfOLsGLvzBt3c zPajkMjaZS0bACGe nybhv236AzRbk4zsWQYq qVSsXWeyFSF8X37fg7Z9 GHXsSJPfFKE0fKS2rB3u bGlnbjogbGVmdDsg rjUylTmgKRpySHlhI822 IHRvcDsnPkJpcnRoIERh vVL5PJ74IZ74kLObq2F5 hUT7E6IiBXQsxmpi jtehsBQ4SLKdWGYnpF81 Iy3hrAfqDv7fALXtLJC7 JQQweMFtQ9RhdF2yGsLq MLMiUPOfU5CxjRIu ILqwA288ECpkXrU7KSPd hiRvY0JoQJJskMavOfX4 x8L9Dq1SN9C5EV72UW61 mSRlz6Y0dUF8Y1Ho NGBpavrggsniiBH3MFPr MVFdqV89Gz8bgAuyBn1u VUSbDPO7TPKzeSYtY7Yu jQ9hUsJfDMCpWZYi H4ZvvJKuOGgdM482HPow PwQ9ZPEddzYvO0NvVJDd oDdxQaM9c5F5Fj5FZTc2 MN49AH23nAGji6B5 fFT4M3ZtVQAkfcspgwdy bKS3JQLvIZElnR88Cd3r yNgxCf3eVGCxSJI0LIZw hNKiA3XcrF8nIdLt OKYdPYUtZ3VlaNAjONpg L529SWbqRoP9YNBlniEi V8AwKDNlgMwpKgV6k1P9 Cp9QALYzZS89YTG5 wUC7MN35ZU16O6ArYwka dGFibGU+PHRhYmxlIHdp ZHRoPScxMDAlJyBzdHls EN5eKs1wHIRjJRIz lHefdHDyOiHvj6psZKTc IIxzXT3qcLtbA6XivOA5 YDIvk6y0Ty04P22hU2Ub dXA+HKDcwJX1lDS9 rF5oGkFlIcA1ZHdsP647 ZaVloSNqAeshu5qum7uj dVg7JzS0HZWjnlXarKew YBT2e0HwXe67F14y IHdpZHRoPSIxNSUiIHZh jUleer6beY4zDa7+PGNv wWQ4dPM2aV5vZmOhViW0 GFclZ903IqFhkLMs Iklcr3uld6qzpHi0LcOs KDKuuyLecJfxFKI3h5Yg Ta47J6VmoFdya7BkZuo1 hg31zOFvq4S6tKU1 G2WlRIJiijvfyISmfMup MB6fHAPywpgyGNTceP1k YSDuL2n5WxFwBjR3QWpr I2AijiE8GVXwrBOh VBxwRBU5B33ad9M9ZVDw NASvUMX4lDG8yA4fnQmi bjogbGVmdDsgdmVydGlj RQtrITmuF630OOSu rSssVGWsxD2uNFOeePDi fInrBF4aDXTnjiyvGx6D BAMDMLCESA2MKHvmaRO+ XXJlVEW4zFjfCPtk HTKcbM3jKNOoI3j8KvOz KuE1ZPrbB5TrYNMgdgwn Ve57aC0bEbNcMfK6MJjc C9PzrrF3VFJnnEVs YCvbDNL1O49ez5H3EJSy JFPeETP9lTG5jQ6clSdd bjogbGVmdDsgdmVydGlj ZKdyUBblH075NVUg nZowTkJ9KsU6XjJ8JPR8 V7PvUlo8NXQknTpoKB8w zUXoAIwfAh8spXubyQvx TI5zFMZxbcbsNJLv eZ3eABVawXYxyBjqBA4r QCQdftdxc941YrPuBKI1 ZESkzDRvA5XxmK1rGdWk APZwYXKbT7WzhJIq PUnuQ989LZlaNzX0ZBZn laTjD1BvZCRfcPvlZmD5 q1P5Xq5zBPNDAEPkueek dGQ+WRVpNDS4bAcx MPwaHQQtoH4oEMIkP9u5 WlRaXnK6QVlkJ4EmPAXh tuusTk65zK6wPeQnSpD0 HWvzV3VfccR8LPAc cZNgXXujYDS4V00sc4A3 MKSwFJVqYKW6gXD3vI8s bGlnbjogbGVmdDsgdmVy yUbiAYmqVHqpH181 IHRvcDsnPkZlbWFsZTwv dGQ+OQYhGWO7iMjmUFrf GTPolE5vUXOzU1h1UjPj JtS9ZAhzN3TkPPMo qahbCt27mM8cQcAqYlF4 RCfyV9QsmqZ7TKNwlIPw VIemIJV8O71rx9J7FQHg CMIoZAY8yJN2dW0w bGlnbjogbGVmdDsgdmVy jBewKNqfHZiqB830QWGs xDzeBxwlAjYYkp9qYO5n ZjwvdGQ+EE75es82 W9EqBlekEwn0IFFqSPE7 sIV3hX9lCNNqUFvwm1H5 cOS0J6KgbbSmby9dz4kb QUVuFRkvG57iaGOb u2E9XLFtuCY4RVXldCvj AoSqdX36Tyu+PGNvbGdy y9XuUtwph1vum7aofOz0 IjMwJSIgdmFsaWdu MXI5z8SrVi27A25eMYva ZHRoPSIzMCUiIHZhbGln xf7xjH1pYy6+PGNvbCB3 dFM5xI5tWfMcLsR0 IJbxD278IeWltFDzQjuz c1dwo3qpqGp5DxMaSWZw teHfmZciUGI8g5RqXf81 V3PgtMnva7EvEhy4 bs48jXBxv1U0sMV0L7Tz NOJizzariQXqqOcgTY3l ETXfkpmhQRYszW7aJWQn D1i7JiCbXiT8XOur J9FdpwV6GTPfuQAhZHTb dOLNkS8wkmgfl1jdpqff UaOfQLMiDBi0NBb6XWSv iZviIrCoIMN4BmK2 ZIL6uEEftB1mxYgwlqxg pO5gEbu+LAq7v6venJOn KT8ybAM7LS57GQ39sLLc s0B9yFB5X4OjTRMn qqgcugatsQE9YKMlNPVv aZ13Qq0tcWluXd7uRYYu QCR5FAVslNScT1ByrI8k PoTgXJGtRAGvM4Kn tNPqZHalG840VGxnJuC9 VQLzpnKuU9BzDVQurPmo NqO1p5V8Xd2SHN58KN11 VO29oNKmc1L9bLR8 T6FhUHMzdqtdxbkfuAP5 OTWmWCJnjZ24Jj6piUpz Rl4wNOEeWUX3INUybAKu L8YdtW2yUhLbBMMx HOYnK2EapKWcKAhiX618 WPhlHkX3CJObcvQfG0Hz JCPynAbxJzA1k2A6Au6W Ry90BT23HS56aMZx t0C2cHB8X9QkCKKxkjli cuxfiOE0VRFvWOQpuI71 Mk3fjFigJg5aRUYzSTN7 MJLsdHJwI5ZywS9k CqJdVOGyTLUxB5NwnMMl LCcuS105WHveCtF5OOFd muNlC8LpMVOczJydNzL2 c4M3Dy6QXKnmsua4 P1VrRkromXM+ON02MUBb AW88iTBtiSAhp0aopXi0 PrFrDGPhFZP6oIsdZOfg m9ZhFTZyE52wcHYi c2U6 (more content not included)... Normal [facility] US renal BIon 02-07-2022 [place] [address] Ultrasound Report Signed Patient: Jessa Chatman MR#: [id number] 9 : 1985 Acct:[id number] Age/Sex: 36 / F ADM Date: 02/07/22 Loc: Room: Type: [facility] Attending Dr: Saida Abad PA-C Ordering [...] Mark Stark M.D.02/07/2022 3:24 PM Dictation Location: [facility] Tech: Saida Gilliland Transcribed By: KARI 02/07/22 1524 Dictated By: Mark Stark DO 02/07/22 1522 Signed By: 02/07/22 1524 [facility] XR KUBon 02-07-2022 XR KUB [facility] [place] [address] [place] [address] XRay Report Signed Patient: Jessa Chatman MR#: [id number] 9 : 1985 Acct:[id number] Age/Sex: 36 / F ADM Date: 02/07/22 Loc: Room: Type: [facility] Attending Dr: Saida Abad PA-C Ordering [...] Mark Stark M.D.02/07/2022 3:13 PM Dictation Location: [facility] Transcribed By: KARI 02/07/22 1513 Dictated By: Mark Stark DO 02/07/22 1512 Signed By: 02/07/22 151 [facility] Patient Educationon 02-05-20 Patient Education Pharmacology [...] Trouble breathi (more content not included)... Normal [facility] Urology Office/Clinic Noteon 02-04-2022 Urology Office/Clinic Note Chief Complaint referred for recurrent UTI. [facility] Staff Jessa is here today as a new patient referred by Herve [employer] INSPECTOR for recurrent UTI.Started Cleocin 300mg on 12/24/21 [...] on Cleocin x 7d in Dec per [employer]. pt has not noticed any connection with [...] baths & hot tubs, avoid any scented [employer] products, urinate after sexual activity, etc) PVR [...] E&M of New Patient Moderate 45-59 Min 36268 Urnls Dip Stick Auto w/o Microscopy POC 93808 US Renal XR Abdomen 1 View Orders: [...] Protein Urine Dipstick: Negative (02/04/22 14:41:00) Specific Galliano Urine Dipstick: 1.025 (02/04/22 14:41:00) Urine Appearance Urine Dipstick: (more content not included)... Normal [facility] Comment on above: Result Comment: Elec tronically Signed By: SAIDA ABAD PA-C\.br\Date and Time Signed: 02/04/22 16:12 EDT Vital Signs Date Time Vital Sign Value Performing Clinician Facility 06-25-2022 09:14-0400 Blood Pressure Location Jalen Mor[facility] 06-25-2022 09:14-0400 Diastolic blood pressure 86 mm[Hg] Jalen Mora [facility] 06-25-2022 09:14-0400 Heart rate 77 /min [facility] Mor[facility] 06-25-2022 09:14-0400 Systolic blood pressure 130 mm[Hg] Jalen Mora [facility] 06-18-2022 10:45-0400 Body height 162.56 cm Devin Lam Other [facility] Other 06-18-2022 10:45-0400 Body mass index (BMI) [Ratio] 28.49 kg/m2 Devin Lam Other [facility] Other 06-18-2022 10:45-0400 Body weight 75.3 kg Devin Lam Other [facility] Other 06-18-2022 10:45-0400 Diastolic blood pressure 76 mm[Hg] Devin Lam Other [facility] Other 06-18-2022 10:45-0400 Respiratory rate 16 /min Devin Lam Other [facility] Other 06-18-2022 10:45-0400 SaO2% (BldA) [Mass fraction] 99 % Devin Lam Other [facility] Other 06-18-2022 10:45-0400 Systolic blood pressure 118 mm[Hg] Devin Lam Other [facility] Other 05-13-2022 16:00-0400 Body height 162.56 cm Devin Lam Other [facility] Other 05-13-2022 16:00-0400 Body mass index (BMI) [Ratio] 29.73 kg/m2 Devin Lam Other [facility] Other 05-13-2022 16:00-0400 Body weight 78.56 kg Devin Lam Other [facility] Other 05-13-2022 16:00-0400 Diastolic blood pressure 68 mm[Hg] Devin Lam Other [facility] Other 05-13-2022 16:00-0400 Respiratory rate 16 /min Devin Lam Other [facility] Other 05-13-2022 16:00-0400 SaO2% (BldA) [Mass fraction] 97 % Devin Lam Other [facility] Other 05-13-2022 16:00-0400 Systolic blood pressure 114 mm[Hg] Devin Lam Other [facility] Other 04-16-2022 10:30-0400 Body height 162.56 cm Devin Lam Other [facility] Other 04-16-2022 10:30-0400 Body mass index (BMI) [Ratio] 30.72 kg/m2 Devin Lam Other [facility] Other 04-16-2022 10:30-0400 Body weight 81.19 kg Devin Lam Other [facility] Other 04-16-2022 10:30-0400 Diastolic blood pressure 80 mm[Hg] Devin Lam Other [facility] Other 04-16-2022 10:30-0400 Respiratory rate 16 /min Devin Lam Other [facility] Other 04-16-2022 10:30-0400 SaO2% (BldA) [Mass fraction] 99 % Devin Lam Other [facility] Other 04-16-2022 10:30-0400 Systolic blood pressure 130 mm[Hg] Devin Lam Other [facility] [employer] Other Encounters Encounter Date Encounter Type Care Provider Facility Start: 11-16-2023 End: 11-16-2023 ambulatory MOUNA LUIS M Not Available Start: 10-28-2023 End: 10-28-2023 ambulatory MOUNA LUIS M Not Available Start: 10-23-2023 End: 10-23-2023 ambulatory ARACELI MAGALY [facility] Start: 10-08-2023 End: 10-08-2023 ambulatory MOUNA ANGEL Not Available Start: 09-23-2023 End: 09-23-2023 ambulatory MOUNA ANGEL Not Available Start: 04-15-2023 End: 04-15-2023 ambulatory Devin Lam Other [place] [employer] Other Start: 04-15-2023 Telephone encounter Devin Ziggy [facility] Start: 01-19-2023 End: 01-19-2023 ambulatory Devin Lam Other [facility] [employer] Other Start: 01-19-2023 Telephone encounter Devin Ziggy [facility] Start: 12-19-2022 End: 01-07-[address] MOUNA ANGEL . Facility:[facility] Start: 12-05-2022 End: 12-06-[address] MOUNA ANGEL . Facility:[facility] Start: 11-19-2022 End: 11-19-[address] MOUNA ANGEL . Facility:[facility] Start: 11-16-2022 Encounter for preprocedural laboratory examination DR MOUNA ANGEL . [facility] Start: 11-13-2022 End: 11-14-[address] [...] encounter procedure Dasia Addison [facility] Start: 06-25-2022 End: 06-25-2022 Patient encounter procedure Jalen Mora [facility] Start: 06-18-2022 End: 06-18-2022 ambulatory Devin Lam Other [employer] Other Start: 06-18-2022 Office outpatient vi sit 15 minutes Devin Stephanies [facility] Start: 05-13-2022 End: 05-13-2022 ambulatory Devin Stephanies Other [employer] Other Start: 05-13-2022 Office outpatient vi sit 15 minutes Devin Stephanies [facility] Start: 04-16-2022 End: 04-16-2022 ambulatory Devinkye Arroyos Other [employer] Other Start: 04-16-2022 Office outpatient vi sit 25 minutes Devin Stephanies [facility] [place] Start: 04-15-2022 End: 04-15-2022 Lab Drop off SAIDA ABAD [facility] Start: 04-15-2022 End: 04-15-2022 Patient encounter procedure Kwadwo SAEZ [facility] Start: 03-06-2022 End: 03-06-2022 Lab Drop off Kwadwo SAEZ [facility] Start: 03-06-2022 End: 03-06-2022 Patient encounter procedure Ravinder MCCAULEY [facility] Start: 02-04-2022 End: 02-04-2022 Lab Drop off SAIDA ABAD [facility] Procedures Date Procedure Procedure Detail Performing Clinician Start: 11-09-2013 Colonoscopy and biop sy of colon Kwadwo SAEZ Start: 11-09-1989 History of tonsillectomy Kwadwo SAEZ Start: 11-09-1989 Tonsillectomy SAIDA HELMRY Start: 11-09-1989 Tympanotomy SAIDA [place] Immunizations Immunization Date Immunization Notes Care Provider Rao rincon 11-09-2020 SARS-CoV-2 mRNA (tozinameran 5y-11y) vaccine Jalen Mora [facility] Comment on above: Result Comment: 2 [facility] 03-10-2015 tetanus toxoid, reduced diphtheria toxoid, and acellular pertussis vaccine, adsorbed Kwadwo SAEZ [facility] Comment on above: Reason for Medicatio n: Other (see comment) NEGATED: Highlighted row has not occurred!02-19-2019 influenza, seasonal, injectable Patient Objection Devin Lam Other [employer] Other Payers Date Payer Category Payer Unknown [id number] 2.16.84 [id number] 1985 Unknown [id number] 2.16.84 [id number] 1985 Unknown [id number] 2.16.84 0.1.190618.3.579.2.593 1986 Unknown [id number] 2.16.84 0.1.136062.3.579.2.593 1986 Unknown [id number] 2.16.84 0.1.278574.3.579.2.593 1986 Unknown [id number] 2.16.84 0.1.660628.3.579.2.593 1986 Unknown [id number] 2.16.84 0.1.294767.3.579.2.593 1986 Unknown [id number] 2.16.84 0.1.043591.3.579.2.593 1986 Unknown [id number] 2.16.840 .1.842738.3.579.2.1259 1986 Unknown [id number] 2.16.840 .1.731896.3.579.2.1259 1986 Unknown [id number] 2.16.840 .1.793924.3.579.2.1259 1986 Unknown [id number] 2.16.840 .1.622763.3.579.2.1259 1959 Unknown [id number] 2.16. [id number] 1959 Unknown [id number] Social History Date Type Detail Facility Start: 02-04-2022 End: 02-25-2022 Tobacco smoking status Never smoked tobacco (finding) [facility] Tobacco smoking status Never [facility] Sex Assigned At Female [facility] Functional Status Date Assessment Result Facility 06-25-2022 Functional Status N/A [facility] Clinical Notes 02-04-2022 to 10-23-2023 Note Date & Type Note Facility 10-23-2023 Note F/U with OB and mate rnal medicine as scheduled [facility] 10-23-2023 Note UTP CARDIOLOGY PROGR ESS NOTE HPI: Jessa Chatman is a 38 y.o. female here for tachycardia during Patient here per Dr. Angel for tachycardia in . She is currently 32w5d along. CORE INSPECTOR started her on metoprolol tartrate 25mg daily [...] scheduled RTC 2-3 months or as needed [facility] 10-23-2023 Note Patient here per Dr. Angel for tachycardia in . She is currently 32w5d along. CORE INSPECTOR started her on metoprolol tartrate 25mg daily a few weeks ago, which as helped with palpitations. HR gets as high as 147 at rest sometimes. This issue went away after the of her last baby. Review of Systems Cardiovascular: Positive for dyspnea on exertion. Neurological: Positive for light-headedness. All other systems reviewed and are negative. [facility] 04-15-2023 Evaluation note Encounter Date Diagnosis Assessment Notes Apr, Spontaneous rupture of tympanic membrane of right ear concurrent with and due to acute suppurative otitis media (ICD-10 - H66.011) [employer] Other 01-11-2023 NoteOPERATIVE NOTE OPERATION DATE: 11/19/2022 PROCEDURE: Suction D AND C. PREOPERATIVE DIAGNOSIS: Missed first trimester. POSTOPERATIVE DIAGNOSIS: Missed first trimester. ANESTHESIA: General. SURGEON: Mouna Angel D.O. BOIL OFF WORKER: None. FINDINGS: Products of conception. SPECIMEN: Products [...] products of conception were removed using a 9-Liberian suction curette. Excellent hemostasis was noted. The patient tolerated the procedure well. Sponge, lap, and needle counts were correct x 2. All instruments were then removed from the patient's vagina. The patient was taken to the Recovery Room in stable condition. [id number] Evaluation + Plan note Diagnostic Tests Pending * UTI ([facility]) 07/03/22 [facility] 08-17-2022 Hospital Discharge [...] Follow these instructions at home: Medicines Take nbrs-nht-frcpiqf and prescription medicines only as told by [...] 10/26/2006 Document Revised: 03/13/2020 Document Reviewed: 03/13/2020 [employer] Patient Education 2019 [employer]. 06/25/2022 09:59:21 Urinary Tract Infection, Adult Urinary [...] Treatment for this condition includes: Antibiotic medicine. Keal-pah-ixffwov medicines to treat discomfort. Drinking enough water [...] Follow these instructions at home: Medicines Take ywlk-ryx-qrlghhm and prescription medicines only as told by [...] 08/05/2006 Document Revised: 10/13/2019 Document Reviewed: 05/05/2019 [employer] Patient Education 2020 [employer]. [facility] 08-10-2022 Evaluation note* Encounter Date Diagnosis [...] that she can go off it completely. [employer] Other 07-05-2022 Evaluation note* Encounter Date Diagnosis [...] calf. 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 Patient would like to hold off on the referral for now. [employer] Other 06-08-2022 Evaluation note* Encounter Date Diagnosis [...] or any other dysrhythmias. She voices understanding [employer] Other [id number] Evaluation + Plan note Diagnostic Tests Pending * [facility] Future Appointments Appointment Date:07/02/2022 02:45:00 PM Scheduled Provider:Kwadwo SAEZ MD Location:[facility] Appointment Type:URO Office Visit [facility] Evaluation + Plan note Future Appointments Appointment Date:07/02/2022 02:45:00 PM Scheduled Provider:Kwadwo SAEZ MD Location:[facility] Appointment Type:URO Office Visit Diagnostic Tests Pending * Urine Culture [facility] Future Appointments Appointment Date:07/02/2022 02:45:00 PM Scheduled Provider:Kwadwo SAEZ MD Location:[facility] Appointment Type:URO Office Visit Diagnostic Tests Pending * Urine Culture [facility]22 [facility] noteNo [facility] [employer] Other History general Narrative - Reported* Type Description Date Medical History Anxiety Hospitalization History childbirth 2014 [facility] [employer] Other Hospital course Narrative No data available for this section [facility] No data available for this section [facility] No data available for this section [facility] Summary Purpose Family History No [...] acute suppurative otitis media (H66.011) Referral Organization [facility] [place] Referring Provider First Name Devin Referring Provider Last Name Ziggy Referring Provider Specialty Family Prac brittanie Referred Organization [facility] Referred Provider Aldo Bolanos Referred Address ,[place], [place],[address] Referred Provider Specialty Otolaryngolo gy Referral Priority Routine General Notes Higinio Asher 023 12:56:47 PM >Received today. [facility] request us to send the referral and they will call and schedule patient. Referral was fax Clinical Notes Office [phone] Additional Source Comments INFORMATION SOURCE (unrecogn ized section and content) DATE CREATED AUTHOR 02/26/2022 [employer] [facility] DATE CREATED AUTHOR AUTHOR'S ORGANIZ ATION 07/04/2022 [facility] DATE CREATED AUTHOR AUTHOR'S ORGANIZ ATION 07/05/2022 Levy Justin [facility] DATE CREATED AUTHOR AUTHOR'S ORGANIZ ATION 01/21/2023 [facility] DATE CREATED AUTHOR AUTHOR'S ORGANIZ ATION 10/25/2023 [facility] DATE CREATED AUTHOR AUTHOR'S ORGANIZ ATION 11/16/2023 [facility] EPIC REASON FOR VISIT (unrecogniz ed section and content) weight management/ UTI4 week follow up-weight mgmt.1 month Follow up weight managementClinicalClinical Care Team (unrecognized sect ion and content) Personnel Name: ZIGGY DEVIN Address: [address] [place] [address] Personnel Name: STEPHANIELori DO DEVIN Address: [address] [place] [address] FOR RECORDS PERTAINING TO PATIENTS WHO ARE [...] BE BASED ON THE PRIMARY CLINICAL RECORDS. [employer] [facility]. provides no warranty or guarantee of the accuracy or completeness of information in this document.
[2023-11-19 08:18] VITALS: BP 129/80; PULSE 88
== END 2023-11-19 08:47 | disposition home or self-care (01) ==
LOC: FBCO 07:00 → FBC 08:04
PROVIDERS: Visit Provider Obstetrics & Gynecology
DX: O26.843 Uterine size-date discrepancy, third trimester (principal); O09.523 Supervision of elderly multigravida, third trimester
CPT/HCPCS: 59025

== ENCOUNTER 2023-11-23 07:10 | Outpatient (OUT) | payer BC, SELFPAY ==
--- NOTE | 2023-11-23 | US_ITS ---
[address] [address] Patient Name: BONILLA KUMAR MRN: [id number] date: 1985 Sex: F Assigned Patient Location: Current Patient Location: Accession/Order Number: [id number] Exam Date: 11/23/2023 09:10 Report Date: 11/24/2023 08:12 At the request of: MOUNA ASENCIO Procedure: US OB umbilical artery EXAMINATION: US OB umbilical artery HISTORY: MULTIGRAVIDA OF ADVANCED MATERNAL AGE COMPARISON: No relevant comparison available. TECHNIQUE: Duplex Doppler evaluation of the umbilical arteries. FINDINGS: position: Cephalic presentation, longitudinal lie Amniotic fluid volume 16.1 cm, largest fluid pocket 5.9 cm Heart rate: 140 Three-vessel cord Forward flow identified throughout diastole Proximal umbilical artery PSV/EDV: 108/45 cm/s. Resistive index 0.58. Ratio 2.4 Mid umbilical artery PSV/EDV: 88/40 cm/s. Resistive index 0.54. Ratio 2.2 Distal umbilical artery PSV/EDV: 75/36 cm/s. Resistive index 0.51. Ratio 2.1 US/US OB umbilical artery IMPRESSION: Class 0, normal Umbilical Artery: Class 0 = Normal umbilical artery blood velocity Class I = increased RI or PI, but still forward flow in diastole Class II = Absent end diastolic flow (AEDF) Class III = Reversal of end diastolic flow (REDF) Resistive Index (RI)<1 Systolic/Diastolic ratio (S:D): An S:D ratio of 2-3 after 34 wks is normal Systolic/Diastolic ratio (S:D): Age 16: 3.01 for the 10th percentile, 4.25 for the 50th percentile, 6.07 for the 90th percentile Age 20: 3.16 for the 10th percentile, 4.04 for the 50th percentile, 5.24 for the 90th percentile Age 24: 2.70 for the 10th percentile, 3.50 for the 50th percentile, 4.75 for the 90th percentile Age 28: 2.41 for the 10th percentile, 3.02 for the 50th percentile, 3.97 for the 90th percentile Age 30: 2.43 for the 10th percentile, 3.04 for the 50th percentile, 3.80 for the 90th percentile Age 32: 2.27 for the 10th percentile, 2.73 for the 50th percentile, 3.57 for the 90th percentile Age 34: 2.08 for the 10th percentile, 2.52 for the 50th percentile, 3.41 for the 90th percentile Age 36: 1.96 for the 10th percentile, 2.35 for the 50th percentile, 3.15 for the 90th percentile Age 38: 1.89 for the 10th percentile, 2.24 for the 50th percentile, 3.10 for the 90th percentile Age 40: 1.88 for the 10th percentile, 2.22 for the 50th percentile, 2.68 for the 90th percentile Age 41: 1.93 for the 10th percentile, 2.21 for the 50th percentile, 2.55 for the 90th percentile Age 42: 1.91 for the 10th percentile, 2.51 for the 50th percentile, 3.21 for the 90th percentile Uteroplacental Artery: Resistive Index (RI): Normal=<0.55 High Resistance=Bilateral notches (after 26 wks) and RI>0.55. Unilateral notches (after 26 wks) and RI>0.65 Systolic/Diastolic ratio (S:D) = 2-3 is normal after 32 weeks. Electronically authenticated by: ERROL VELA Date: 11/24/2023 08:12
--- NOTE | 2023-11-23 | US_ITS ---
[address] [address] Patient Name: BONILLA KUMAR MRN: [id number] date: 1985 Sex: F Assigned Patient Location: US Current Patient Location: US Accession/Order Number: [id number] Exam Date: 11/23/2023 09:10 Report Date: 11/24/2023 07:18 At the request of: MOUNA ASENCIO Procedure: US OB BPP w non-stress EXAMINATION: US OB BPP w non-stress HISTORY: MULTIGRAVIDA OF ADVANCED MATERNAL AGE COMPARISON: No relevant comparison available. TECHNIQUE: Ultrasound biophysical profile was performed in the radiology department. FINDINGS: BREATHING MOVEMENTS: 2.0 GROSS BODY MOVEMENTS: 2.0 TONE: 2.0 QUALITATIVE AMNIOTIC FLUID VOLUME: 2.0 PRESENTATION: CEPHALIC HEART RATE: 147.5 bpm H.B./min AMNIOTIC FLUID VOLUME: 16.1 cm cm GESTATIONAL AGE: 37 weeks 0 days CONCLUSION: Total biophysical profile score: 8.0 Electronically authenticated by: ERROL VELA Date: 11/24/2023 07:18
--- OUTSIDE RECORDS SUMMARY | 2023-11-23 07:13 | XMS_ITS | CCD ---
Author Name Unknown Address [address] [place] [address] Organization [facility] Care Team Providers Care Biology Lecturer Name Role Phone DEVIN LAM Primary Care Physician [phone] Devin Lam Unavailable LUIS M ., DR FREIRE Attending Unavailable LIUS M ., DR FREIRE Consulting Unavailable LUIS [...] Translations: [acetaminophen-hy drocodone] Drug Allergy Nausea (finding) [facility] (13 sources) Banana Extract; Translations: [Banana] Drug Allergy 09-10-20 Itching (finding) [facility] (8 sources) Melon; Translations: [melon] Drug allergy 09-10-20 20 Itching (finding) [facility] (5 sources) Melon Propensity to adverse reactions Unknown [facility] Other (1 source) Acetaminophen / HYDROcodone Drug Allergy 09-10-20 20 [facility] Repository (1 source) Acetaminophen / HYDROcodone; Translations: [HYDROCODONE-ACET AMINOPHEN] Drug Allergy 04-10-20 21 [facility] Repository Medications Current Medications Medication Drug Class(es) [...] day(s), # 90 cap(s), Refills(s) 0, Pharmacy: [facility] [id number] [address], 162, cm, 02/25/22 14:21:00 EDT, [...] procedure, # 2 cap(s), Refills(s) 0, Pharmacy: [place] [id number] [address], 162, cm, 02/04/22 14:57:00 EDT, Height/Length Dosing, 75, kg, 02/04/22 14:57:00 EDT, Weight Dosing Start Date: 02/04/22 Status: Ordered citalopram 20 mg oral tablet (10 sources) Serotonin Reuptake Inhibitor Start: 02-04-2022 take 1 mg by mouth once daily CeleXA 20 mg Tab mg tab(s), Oral, Daily, Refills(s) 0 Start Date: 02/04/22 Status: Ordered take 0.[address] [facility] every twenty-four hours Citalopram Hydrobromide 20 MG 0.5 tablet Orally Once a day Active Docusate (9 sources) Start: 02-04-2022 take 1 mg by mouth twice daily Dulcolax Stool Softener mg, Oral, BID, Refills(s) 0 Start Date: 02/04/22 Status: Ordered Start: 03-09-2015 take 1 capsule by mo [facility] twice daily as needed for constipation [...] 06/25/22 Status: Ordered take 1 capsule by [facility] once daily at bedtime Macrobid 100 MG [...] 10 day(s), 20 tab(s), Refill(s) 0, [facility] [id number] [address], 162, cm, 02/25/22 14:21:00 EDT, [...] Range Facility Office Visiton 10-23-2023 Follow-up visit [id number] Jessa Chatman 1985 F Date Provider Department Center 10/23/2023 ARACELI COCHRAN CARD [facility] No family history on file Level of Service:41544 [place] OFFICE/OUTPATIENT ESTABLISHED MOD MDM 30-39 MIN Normal [facility] PROGRESSon 10-23-2023 Beta HCG ( test) Ql [...] sugar. She voiced understanding of risks. Normal [facility] PREG QUANT HCGon 12-19-2022 HCG QUANT 5 mIU/mL Normal [facility] Comment on above: Performed By: #### P REGQNT #### [facility] Laboratory [address] [place] [address] Dr. Fadi Meza HCG RANGE SEE BELOW Normal [facility] Comment on above: Result Comment: 5-50 0.2-1 WEEK 50-500 1-2 WEEKS 100-5,000 2-3 WEEKS 500-10,000 3-4 WEEKS 1,000-50,000 4-5 WEEKS 10,000-100,000 5-6 WEEKS 15,000-200,000 6-8 WEEKS 10,000-100,000 2-3 MONTHS Performed By: #### P REGQNT #### [facility] [address] [place] [address] Dr. Fadi Meza PREG QUANT HCGon 12-05-2022 HCG QUANT 43 mIU/mL Normal [facility] Comment on above: Performed By: #### P REGQNT #### [facility] [address] [place] [address] Dr. Fadi Meza HCG RANGE SEE BELOW Normal [facility] Comment on above: Result Comment: 5-50 0.2-1 WEEK 50-500 1-2 WEEKS 100-5,000 2-3 WEEKS 500-10,000 3-4 WEEKS 1,000-50,000 4-5 WEEKS 10,000-100,000 5-6 WEEKS 15,000-200,000 6-8 WEEKS 10,000-100,000 2-3 MONTHS Performed By: #### P REGQNT #### [facility] [address] [place] [address] Dr. Fadi Meza CBC AUTO DIFFon 11-19-2022 BASO # 0.0 103/ul Normal 0.0-0.1 [facility] Comment on above: Performed By: #### C VDTBH #### [facility] [address] [place] [address] Dr. Fadi Meza Basophils/100 WBC (Bld) 0.7 % Normal 0.2-2.0 [facility] Comment on above: Performed By: #### C VDTBH #### [facility] [address] [place] [address] Dr. Fadi Meza EO # 0.1 103/ul Normal 0.0-0.7 [facility] Comment on above: Performed By: #### C VDTBH #### [facility] [address] [place] [address] Dr. Fadi Meza Eosinophils/100 WBC (Bld) 2.1 % Normal 0.9-7.0 [facility] Comment on above: Performed By: #### C VDTBH #### [facility] [address] [place] [address] Dr. Fadi Meza Erythrocyte distribution width (RBC) [Ratio] 13.7 % Normal 11.0-15.0 [facility] Comment on above: Performed By: #### C VDTBH #### [facility] [address] [place] [address] Dr. Fadi Meza Hematocrit (Bld) [Volume fraction] 36.9 % Normal 36.0-48.0 [facility] Comment on above: Performed By: #### C VDTBH #### [facility] [address] [place] [address] Dr. Fadi Meza Hemoglobin (Bld) [Mass/Vol] 11.8 g/dL Critically low 12.0-16.0 [facility] Comment on above: Performed By: #### C VDTBH #### [facility] [address] [place] [address] Dr. Fadi Meza IG # 0.01 10e3/ul Normal 0.00-0.03 [facility] Comment on above: Performed By: #### C VDTBH #### [facility] [address] [place] [address] Dr. Fadi Meza IG % 0.2 % Normal 0.0-0.5 [facility] Comment on above: Performed By: #### C VDTBH #### [facility] [address] [place] [address] Dr. Fadi Meza LYMPH # 1.3 103/ul Normal 1.2-3.8 [facility] Comment on above: Performed By: #### C VDTBH #### [facility] [address] [place] [address] Dr. Fadi Meza Lymphocytes/100 WBC (Bld) 29.3 % Normal 20.5-60.0 [facility] Comment on above: Performed By: #### C VDTBH #### [facility] [address] [place] [address] Dr. Fadi Meza MANUAL DIFF REQ NO Normal [facility] Comment on above: Performed By: #### C VDTBH #### [facility] [address] [place] [address] Dr. Fadi Meza MCH (RBC) [Entitic mass] 28.4 pg Normal 26.7-34.0 [facility] Comment on above: Performed By: #### C VDTBH #### [facility] [address] [place] [address] Dr. Fadi Meza MCHC (RBC) [Mass/Vol] 32.0 g/dL Normal 29.9-35.2 [facility] Comment on above: Performed By: #### C VDTBH #### [facility] [address] [place] [address] Dr. Fadi Meza MCV (RBC) [Entitic vol] 88.9 fL Normal 81.0-99.0 [facility] Comment on above: Performed By: #### C VDTBH #### [facility] [address] [place] [address] Dr. Fadi Meza MONO # 0.5 103/ul Normal 0.3-0.8 [facility] Comment on above: Performed By: #### C VDTBH #### [facility] [address] [place] [address] Dr. Fadi Meza Monocytes/100 WBC (Bld) 10.6 % Normal 1.7-12.0 [facility] Comment on above: Performed By: #### C VDTBH #### [facility] [address] [place] [address] Dr. Fadi Meza NEUT # 2.5 103/ul Normal 1.4-6.5 [facility] Comment on above: Performed By: #### C VDTBH #### [facility] [address] [address] [address] Fadi Meza Neutrophils/100 WBC (Bld) 57.1 % Normal 43.0-75.0 [facility] Comment on above: Performed By: #### C VDTBH #### [facility] [address] [address] [address] Fadi Meza Platelet mean volume (Bld) [Entitic vol] 9.4 fL Critically low 9.5-13.5 [facility] Comment on above: Performed By: #### C VDTBH #### [facility] [address] [address] [address] Fadi Meza PLT 210 103/ul Normal 150-450 [facility] Comment on above: Performed By: #### C VDTBH #### [facility] [address] [place] [address] Dr. Fadi Meza RBC 4.15 106/ul Critically low 4.20-5.40 [facility] Comment on above: Performed By: #### C VDTBH #### [facility] [address] [place] [address] Dr. Fadi Meza WBC 4.3 103/ul Normal 4.0-11.0 [facility] Comment on above: Performed By: #### C VDTBH #### [facility] [address] [place] [address] Dr. Fadi Meza PREG QUANT HCGon 11-19-2022 HCG QUANT 66145 mIU/mL Normal [facility] Comment on above: Performed By: #### P REGQNT #### [facility] [address] [place] [address] Dr. Fadi Meza HCG RANGE SEE BELOW Normal [facility] Comment on above: Result Comment: 5-50 0.2-1 WEEK 50-500 1-2 WEEKS 100-5,000 2-3 WEEKS 500-10,000 3-4 WEEKS 1,000-50,000 4-5 WEEKS 10,000-100,000 5-6 WEEKS 15,000-200,000 6-8 WEEKS 10,000-100,000 2-3 MONTHS Performed By: #### P REGQNT #### [facility] [address] [address] [address] Fadi Meza US PREG <14 WKSon 11-19-2022 US PREG <14 WKS Obstetrical ultrasound, 1st trimester CLINICAL: Evaluate prior to scheduled DANDC. TECHNIQUE: Transabdominal and transvaginal obstetrical ultrasound was performed. FINDINGS: Comparison: Ultrasound 11/12/2022 There is a single intrauterine fetus. Hercules-rump length is 1.81 cm, correlating with gestational age 8 weeks 3 days. No heart tones are detected. IMPRESSION: 1. Single intrauterine nonviable gestation. No heart tones detected, and no growth since previous ultrasound 11/12/2022. Electronically authenticated by: RUCHI FRANK Date: 2022-11-19 13:17 Normal [facility] PAP ACOG PANEL 2: 30 to 65on 11-16-2022 . . Normal [facility] Comment on above: Result Comment: Perf ormed at: WB Performed By: #### 4 [id number] #### [facility] [address] [address] [address] Fadi Meza Age Gdln ACOG Testing 30-65 Normal [facility] Comment on above: Performed By: #### 4 [id number] #### [facility] [address] [address] [address] Fadi Meza DIAGNOSIS: Comment Normal [facility] Comment on above: Result Comment: NEGA TIVE FOR INTRAEPITHELIAL LESION OR MALIGNANCY. Performed at: WB Performed By: #### 4 [id number] #### [facility] [address] [address] [address] Fadi Meza HPV Aptima Negative Normal Negative [facility] Comment on above: Result Comment: This nucleic acid amplification test detects fourteen high-risk HPV types (16,18,31,33,35,39,45,51,52,56,58,59,66,68) without differentiation. Performed at: =G Performed By: #### 4 [id number] #### [facility] [address] [address] [address] Fadi Meza HPV Genotype Reflex Comment Normal [facility] Comment on above: Result Comment: Crit eria not met, HPV Genotype not performed. Performed at: WB Performed By: #### 4 [id number] #### [facility] [address] [place] [address] Dr. Fadi Meza Methodology: Comment Normal [facility] Comment on above: Result Comment: This liquid based ThinPrep(R) pap test was screened with the use of an image guided system. Performed at: WB Performed By: #### 4 [id number] #### [facility] [address] [place] [address] Dr. Fadi Meza Note: Comment Normal [facility] Comment on above: Result Comment: The Pap smear is a screening test designed to aid in the detection of premalignant and malignant conditions of the uterine cervix. It is not a diagnostic procedure and should not be used as the sole means of detecting cervical cancer. Both false-positive and false-negative reports do occur. . Performed at: WB Performed By: #### 4 [id number] #### [facility] [address] [place] [address] Dr. Fadi Meza Performed by: Comment Normal [facility] Comment on above: Result Comment: [place], Control System Manager (ASCP) Performed at: WB Performed By: #### 4 [id number] #### [facility] [address] [place] [address] Dr. Fadi Meza Specimen adequacy: Comment Normal [facility] Comment on above: Result Comment: Sati sfactory for evaluation. Endocervical and/or squamous metaplastic cells (endocervical component) are present. Performed at: WB Performed By: #### 4 [id number] #### [facility] [address] [place] [address] Dr. Fadi Meza CHLAMYDIA/GONOCOCCUS TALAT (SW AB/URINE/PAPon 11-15-2022 Chlamydia trachomatis, TALAT Negative Normal Negative [facility] Comment on above: Performed By: #### C T/NGNA #### [facility] [address] [place] [address] Dr. Fadi Meza Neisseria gonorrhoeae, TALAT Negative Normal Negative [facility] Comment on above: Performed By: #### C T/NGNA #### [facility] [address] [place] [address] Dr. Fadi Meza VAGINITIS/VAGINOSIS DNA PROB [place] 11-14-2022 Shannon species Negative Normal Negative [facility] Comment on above: Performed By: #### V AGINT #### [facility] [address] [place] [address] Dr. Fadi Meza Gardnerella vaginalis Negative Normal Negative [facility] Comment on above: Performed By: #### V AGINT #### [facility] [address] [place] [address] Dr. Fadi Meza Trichomonas vaginalis Negative Normal Negative [facility] Comment on above: Performed By: #### V AGINT #### [facility] [address] [place] [address] Dr. Fadi Meza Covid-19 PCR (CVDTBH)on SARS-CoV-2 (COVID-19) RNA TALAT+probe Ql (Unsp spec) Not detected Normal NOT DETECTED [facility] Comment on above: Result Comment: This test is not yet approved or cleared by the [place] FDA. When there are no FDA-approved or cleared tests available, and other criteria are met, FDA can make tests available under an emergency access mechanism called an Emergency Use Authorization (EUA). The EUA for this test is supported by the Personal Fitness Manager of Health and Human Service's (HHS's) declaration [...] SARS-CoV-2. Performed By: #### C VDTBH #### [facility] [address] [place] [address] Dr. Fadi Meza US PREG TVon 11-12-2022 [...] MANUEL VEGA Date: 2022-11-12 16:44 Normal [facility] CULTURE URINEon 09-01-2022 CULTURE URINE Culture Observations: LIGHT GROWTH OF MIXED GENITAL SIRIA. NO POTENTIAL PATHOGENS SEEN. Normal [facility] Comment on above: Performed By: #### U RCX #### [facility] [address] [place] [address] Dr. Fadi Meza UA RANDOMon 09-01-2022 Bilirubin Ql (U) Negative Normal NEGATIVE [facility] Comment on above: Performed By: #### U A #### [facility] [address] [place] [address] Dr. Fadi Meza Clarity (U) CLEAR Normal CLEAR [facility] Comment on above: Performed By: #### U A #### [facility] [address] [place] [address] Dr. Fadi Meza Color (U) YELLOW Normal YELLOW [facility] Comment on above: Performed By: #### U A #### [facility] [address] [place] [address] Dr. Fadi Meza Glucose Ql (U) Negative Normal NEGATIVE [facility] Comment on above: Performed By: #### U A #### [facility] [address] [place] [address] Dr. Fadi Meza Hemoglobin Ql (U) Negative Normal NEGATIVE [facility] Comment on above: Performed By: #### U A #### [facility] [address] [place] [address] Dr. Fadi Meza Ketones Ql (U) Negative Normal NEGATIVE [facility] Comment on above: Performed By: #### U A #### [facility] [address] [place] [address] Dr. Fadi Meza LEUKOCYTES Negative Normal NEGATIVE [facility] Comment on above: Performed By: #### U A #### [facility] [address] [place] [address] Dr. Fadi Meza Nitrite Ql (U) Negative Normal NEGATIVE [facility] Comment on above: Performed By: #### U A #### [facility] [address] [place] [address] Dr. Fadi Meza pH (U) 6.0 [pH] Normal 5-9 [facility] Comment on above: Performed By: #### U A #### [facility] [address] [place] [address] Dr. Fadi Meza SPEC GRAVITY 1.025 Normal 1.005-<=1.025 [facility] Comment on above: Performed By: #### U A #### [facility] [address] [place] [address] Dr. Fadi Meza UA PROTEIN Negative Normal NEGATIVE/ TRACE [facility] Comment on above: Performed By: #### U A #### [facility] [address] [place] [address] Dr. Fadi Meza Urobilinogen Qn (U) 0.2 {Shan'U}/dL Normal 0.2 - 1. 0 [facility] Comment on above: Performed By: #### U A #### [facility] [address] [place] [address] Dr. Fadi Meza CULTURE URINEon 08-02-2022 CULTURE [...] Trimethoprim/Sulfame thoxazole >=320 R F Normal [facility] Comment on above: Performed By: #### C VDTB #### [facility] [address] [address] [address] Fadi Meza UTI (P4 Labs)on 07-05-2022 UTI Report Diagnosis Info Invalid Interpretation Code [facility] Comment on above: Result Comment: [...] on: 07/04/2022 23:05:19 Performed By: #### 2 [id number] ####[facility] [address] [place] [address] UTI ( Labs)on 07-03-2022 UTI Method of Extraction Voided Normal [facility] Comment on above: Performed By: #### 2 [id number] ####[facility] [address] [place] [address] UTI Number of Jars 1 Invalid Interpretation Code [facility] Comment on above: Performed By: #### 2 [id number] ####[facility] [address] [place] [address] UTI Specimen Urine Normal [facility] Comment on above: Performed By: #### 2 [id number] ####[facility] [address] [place] [address] UTI Type of Service Global Normal [facility] Comment on above: Performed By: #### 2 [id number] ####[facility] [address] [place] [address] Urology Office/Clinic Noteon 06-27-2022 Urology Office/Clinic Note [...] Low estrogen (more content not included)... Normal [facility] Comment on above: Result Comment: Elec tronically Signed By: Jalen Robledo\.br\Date and Time Signed: 06/27/22 00:01 EDT Ambulatory Visit Summaryon 0 06-25-2022 Ambulatory Visit Summary JESSA CHATMAN :1985 Visit Date:06/25/2022 Ambulatory Visit Instructions Your Diagnosis Recurrent UTI Bilateral kidney stones Tests Performed Urnls Dip Stick Auto w/o Microscopy POC 72754 Your Care Team Attending Physician - Jalen [...] Urnls Dip Stick Auto w/o Microscopy POC 29913 (06/25/2022) Bilirubin Urine Dipstick - 1+ Small Blood Urine Dipstick - 3+ Large Glucose Urine Dipstick - Negative Ketones Urine Dipstick - Trace - 5 mg/dl Leukocytes Urine Dipstick - Trace Nitrite Urine Dipstick - Negative Protein Urine Dipstick - 2+ (100 mg/dl) Specific Robinson Urine Dipstick - 1.025 Urine Appearance Urine [...] to exami (more content not included)... Normal [facility] Patient Educationon 06-25-20 Patient Education [...] this condition includes: ? Antibiotic medicine. ? Frbg-hdr-vhcjnde medicines to treat discomfort. ? Drinking enough [...] these instructions at home: Medicines ? Take ttnb-ivg-cvfxecb and prescription medicines only as told by [...] This in (more content not included)... Normal [facility] Coding Summary.on 04-23-2022 Coding Summary. CD:[id number] Gh0bWw+PGhlYWQ+PE1FV ZJxJ99npKUdyI3KT1zFE C5JTEZKZDLGGU7TZK4di MV8ZAbmE3DtpzLr MsecpSMhWL55LRt8JEU9 eZkyRTjawI3cfGYzC1c0 FbXrIS75cQ15MWxxIQYx PaT8KqWevjlgoIPk X2pgQoSyfJNnJid+PHRh YmxlIHdpZHRoPScxMDAl BiWaeSmeJQ0kTk6kOAMi LWNvbGxhcHNlOiBj y4llOSYsNZflJL6dmHrj T4ZxvGR6UPKrr3a3Dn96 dHI+EOXuVPI7bWcdIPbo o918UgNur5owFZQ8 iAGtDAzhNVO9I57bg8U7 GZLoGVBgPNR2wFK1lE4h fVskjlltJ3AdrMYjFhU3 PWN1gPAqmG1aoRbz abgplK6nNdx+J54UST8L LCAQGL3OVaw3X2OaHxtk dHI+AA42OOLxMV45uNIa jEDaf8aecTq7ApJk LZEgTNA6oYbpAXewo2Bs ZLGpW98hoBRkh9D5LQHp tKzumFZbFrLpwKG4qJ7c QPghouiuh4cswvjk Iaztk0zfnj31dS81O89k YRehYKUxKOE4TVBwBVUj hCytgi5hxU5eTg8+IDxj r7bvs6eyeIi4QiKc CIQjoyVdxFlpCWR5k3Ra Yh94O7QzaCnug4IoVzc7 kd67hVHqm8X7gBT5CKuu GGGxzA6vEEnjPoM1 PLVuKsRxjZ03cKBvUSnq En8gpCjkwGvvLV6gOYYb nowdTILisB4sFLJzsMOy jZxrVW9vNXNdhqds b994ZyEmRUN8XCAufPDq V4IleE0uIyQeDLSoIZIk Y0WctCQhXFaiP262EJfm ShU6URJcdaZvY6Xj WAIvxSkwWzF5m2E4Zn6I g0LsgkzdGHK7ARphMTL1 McB5SlRzDrP8O6EcNez8 UDXpiDlwAH7uD7Kn LJQqclckoxqvvWE4TJKg KCQmnO68vCHuCDjxCm1h l6A5a308AWKxPUIdyM21 Qv2tvApeRIPypFJS jI8efzoxq5nvlfyeWmRa EAWqTVe8ZYq2WLNytPwd ReMpFXW9NuP4WRJ5bZUg dY3xkWvopvajgB2b Oyc+U39ogZ0pJZD5KEC6 whvyBPDgxyHpXA38XZ63 D6ItBnpoeJWrwEW+PGRp mzZixKgbTX9gKoMx e7hbj7LkEDapJ0VhLTXf WFwoTkw3TZYoEOY0sNA9 aQ0gVCTgVVuma4H0gBP0 D0HmgkAjzl3tx4sa QRMmQZjzY82gmBAda0A1 GDQphNX9PSQhlQjgYuDq zZ64Rre+LMVdcEqjq6Ox Kduaq9lju0gaaMa1 IjMwJSIgdmFsaWduPSJ0 s9UiCg95N13pSHykMKBz LNEkOHPtFYLnoWsdjv6z xT9zRz5+PGNvbCB3 qBH0mA6cAAJjFxY2LHur C240CpUbjDBcMzlzk5no v2vcfYh3KxTiTMYztiZm rZfoYLN1j4LhOf86 N19sKKgsPVZqVZObNKUq OQRoiUltfz0kdB6iPn3+ WN4ho2kjdo80xP08qRH+ THRuUQO0tHjyXBvg MDLcaC3yFNjqFoC9IZFy MmAppL11xIAsKDegUo4z xHmdnQhoYA8oXVYkvfoi i491FwYuy4kvJPDk aNIjJOfoIDX8F45iz6A4 GAJzUSDhOJE7iQV2vR1b bGlnbjogbGVmdDsgdmVy xJyoTUzrZUjcT628 IHRvcDsnPlBhdGllbnQg JgFoLHj5M4DeXdx5YAAz rYrbHX7axDPkMBpgWw4q uYykxZctFK3uBXSx kgnll327UqJri3wrAQNg pKZdLFzmTIS9I64tf3M8 TNVjJSMhRPW2wTD2nL9i bGlnbjogbGVmdDsg zgNavCysGEmzKSbaT273 IHRvcDsnPkJpcnRoIERh aJN6SY49EP13lRAiz1P1 qCX1D3XvGAGirmhg oifcnUM8ITUnBNVtrJ95 Mi6ouKyuEw7wFPDnSOZ9 BGJgaDFtD3YbrB0dAtGg YGPqVEAsV1FfyHEn ROcyG851VLrbQtZ4FBLy taRdU6NuFIOtsUnrOqK8 h8P5Mi6ZB1O2PP68IS88 qILac7U1dTI0C5Mj LGDqrhlqwxynaJN3NAOn ESZtdN05Qm7kvLltLl7s KMQgDTP7AWJreSGpC3Vt aN6rGbVxQXIyWQZy V0MdeFUkYMqbB979QFwu GsT8RQZoxfJpA9ElGDGv uNvgIgU6d6L4Hx1OXJb5 TC89WH47zHZmp8R0 eGQ8E9PdHRKmrjpkawfz ySS9KFRfVBGkbP18Wj4w vBmbJc1dYHTmFPW9VLXl iGDnC4VpkK3wTdFb HBCgZKSsJ2BdcLLtJMnz U176JGxwXsZ6UPXggtTl M8KpRJJlpApqUrC9d7K1 Zg6PADIuTX13WYE5 gSU4UU52YJ10J4XtHxna dGFibGU+PHRhYmxlIHdp ZHRoPScxMDAlJyBzdHls HS9kUn5eTQOjDLTz hOxxnCKfUqZyx8avWNIo BAxuOK7alMgoY9YryEJ0 LQMix7a1Az25L17eV0Yu dXA+XLTlyMG6dVZ1 nA7gArSuMuI2YRodV259 GjCsoKTsOvxpo1cgo7rx hDu3FyE5AWIrcoEvnSmn AIS4t4PlQr17Q86l IHdpZHRoPSIxNSUiIHZh nXwsod3wjG3gZc0+PGNv rFW8jWN7bS1vHyNoDoP1 KFjmR777WgEziRKs Xaito0mij3lgsSo4JiFt AMIsrxCvsTmkDVZ9h3Yn El24F7XgpCven8IvQdn1 qw75mAHsp0F9hMG4 H0YuBWUlidddnICckMlq QL7bUMBexovoIXRtjW2d JYUiF5j8LrFmHzY2EFrl Q5CcdkH4PBHjrWSw KCmnRDD5F52vv3P8KEHk UBKdBAK9pUE5bO1wyMjj bjogbGVmdDsgdmVydGlj BPgkRRatS931XQUu pVttYMMjhL6dTOTaqRLh kTlaSW9qYDNgbfwtBy2E UFKDPOIVXO3ONAzaoCI+ AFUbAAL8cCquJUbk ORFgwM9zKIDzD5x8SrJf KiA8GIisF9NpHNYmebpx Is34kF7nZkOeIuO3ZMzr S1YeosW8XLAanBGy THevPNY9P05ve9Z6IEHa LFLeFGB5fSE2pG9luVii bjogbGVmdDsgdmVydGlj BPbpRGluQ158OHRp xBhvSeP6ZrS6DyZ1CIS9 A3NiRgn8EIVvoNjeFI4w nKRqJYyfAa0tfVsmwBud RF0zKUThxwhpUZVn zK2fYLYzhEZhkEdvEY4s UOXfwcjdc463QbFbOXF8 XWYueDQwB6MxxU1fYsEc AQIeLVWdE4GgkBSu NJmxS586VCnbPpI2HRNe nvCvG7BsSYTobBnvHmX6 e1O1Er2iPHSAZDNspviv dGQ+WYKdJYL5hSaw VLwkUJMbqB1uZSWbV2r2 UgVhJjV5OFcyV4ImBCUb xwvmEm31hV7jCqBoGuH5 RBthG7VxflE8PAIx fTOrAOxfSZV1D58ce2P3 GJWwJJQrHLX1dNN7nB2z bGlnbjogbGVmdDsgdmVy dRliUBpoMOifU325 IHRvcDsnPkZlbWFsZTwv dGQ+DBFaEAC5dYqxNFay BEHjtP4cDUCmM0r1UiIe SgS8NZbhQ6WdZQLa ylxbAx99sU6jMiFeKwR6 IHqkD2WpxmF5IKJurFUn UQoiMQO8K74li4D7UIYf LKYzEOO5iLV1oS6g bGlnbjogbGVmdDsgdmVy wVxnJIvdMPudD162FMQq lVlkVyeqBoIEvj7zRR0k ZjwvdGQ+PD90xo57 Y0UwKgouMld1UYTySPI7 mHB9wM9nOGBiBTduq3D4 zNT2Z1DrltWkrh0ht8zp PRAoXIjxY46hyEAn w5E1URSwaVK7IHOvsSmo KbYdxB51Mpk+PGNvbGdy z4PlNkkgc1cvm9cafVx0 IjMwJSIgdmFsaWdu VAN8m2TsRt56N50eNDcx ZHRoPSIzMCUiIHZhbGln mb1zpS2hXv1+PGNvbCB3 nXM0dI3bXcVrEeP1 SUizM142HpXyhXKrZjlk b3vai8wwfRs5PsOlJTAr xtWgaLafVFO1w4LaIy80 B1JxrCbdl1KnZsg3 fs67xHMkf5W3ePI5L0Ua AKDlqlxzbVFaaUugPK1o JMZolapfSVZtgA4iMDVv V4g1AoKpFkL5FUyg W1LzaiX6DEUioYUhRDEy jGHKwT0uchott9hljedh NhIzULBbEGn0THc3OMPx lUxnNtRsNZS5XuS5 YFY2jYUzoC4saDynrfff gY3pXer+OAr8i6vhzPOi NF4wfNY3AE02GZ91rIFn c2F5iLZ8G0RzSESw ykomombutAJ1DZRoSIMn rA01Qw8xkGzpWw9dGCWq QAB0LDTdeEDpC5IvtF7k GxWfLKOuOXPuO6Kb aSVhBAacO631KOpiSsS5 FZIogvZzP4QjGLWjsDfh RvZ2e8P6Iw4UNJ24WB18 HK55fGQvu0R7eUG0 T6GpPTUbdjnozpiipTY4 DPClEWZgbB80Ig6gnWky Yk9dWFHbXVW3FFAamSDw C4GuvI9kIxKtKNQj NPVpZ4FcxLZxBJsjU236 IAadZlD0PGBmmkPiM4Kl SZTayVcwIdE9o8T1Db3B Dk62FS13AN80tAZk k1F4rGQ4H0RrNYCxfhvl lpsafST1EIJtPCMmnG83 Ql9buMtcFb5zXNMlFBE3 BRErqDZoQ4PyvP3s WuRuJKMiXQYoY1OmaYUt PWrxQ998EHglPrK1WMSv pxAnY8XpXOCezMamAfG4 o0N9Ux6JHPrnxgn4 C4VaYaeswHL+MB73FYPk IP44dNRvyMZno5kbjAm5 IuXoDOTxHLD4lLxzGNrw s8LaIDBhM84ghMAt c2U6 (more content not included)... [facility] 04-18-2022 Reminders - From: Lupis Turner To: EU - Clinical; Sent: 04/15/2022 15:02:18 EDT Show up: 04/18/2022 08:00:00 EDT Subject: Urine culture Reminder/Recall Urine culture done on 04/15/22 addressed by ANNITA Smalls [facility] C Urineon 04-17-2022 Bacteria identified [...] Locations R1: This test was performed at: [facility], [address] [place] [address], [phone] , , [facility] Comment on above: Performed By: #### 2 [id number] ####[place] [address] Coding Summary.on 03-13-2022 Coding Summary. CD:[id number] Gh0bWw+PGhlYWQ+PE1FV LCqL40axOOcgX4LC8gPY E4QDMBARNPJQS5AIU9ly OK4BAcvX0WsolAo JxdneVIhVM97BMy1DRE4 jJihBPyfpR8dvQGvS3k8 JsCcOO63qB24JGxbDIGm NkG8AcWvdoevnIYw T1xzPbGnvDLyVpg+PHRh YmxlIHdpZHRoPScxMDAl YiYeyKxlML0yRw6eYFXd LWNvbGxhcHNlOiBj g6txMZDhEBpqDO2jiCut X6ItmVA2ULRpq5o7Dd45 dHI+JDOwWXC4cUyjUPzv c134TbAit0iuEJN6 lYRiKJngRAM6K29df9E5 UAUyPIZrRBE3nXG3cX3v mDacymazX3RtmGCaSrE4 QKF8cMSroG5gqXht dbdnzF9kCzk+Z08TBD0Y XOIWWQ1TKze0T3NnMhxs dHI+CS73QNDxGK75iSSb zYDzu3zyiJb7MgKj VOWhURS4jUhhTIomj4Ts AKIiH62wsEXbv0G7GQGv fGnybUHzVqHssOI7uA9z GRtogexkx2iusisk Jmyhb2zure49dG29S84e DZavLTJdMWJ3AZChSSDq cTkrqj8ehE0kLe9+IDxj u0bxi3kqfYt0OlNt IUBugqMlkOpeCDN4p5Mu Xz54O1FxtUtui8BqNuw3 jr64uWMeq3J9dEQ7JSol CTYtaR1tUDjpBeH1 HBErHwMlqM65xHEgCBug Cm4gcUanbCwyQP2gILEh vfpuHVPtqP8gWOGrgDEd uIbcKP9kJXHatanz c410NdCrWYF0QXGrhTYv D7DyaE9pOyXvYBEaGYCp C5KsqOBnYOcoA252CQxx ErY1PXToecImS5Gt GXGuoSabWnL1y4L1Jd8C d0YhhewgPRM8RFumWKW5 IzM3TdJxSwS2R1GyEft5 YGVoaFixEF3rX1Fv CSJcclzsrmnybVJ8BCGb CJZvaN66yPNbQHofPt1u a4K8q636IKQxPPFzpD09 Ru8alUckFDOnmAKF hO7htwlsb8ocylxlMuEu YKPeBRn5YNg2PURvbSnc WxEgKNS1GaC5HIR6hWWk fW4cnOggwfrjpE6y Oyc+N25veH5aLAT2WKU3 tjrgVUQtdnWdFH08LR76 U3RgOykzkNChuXG+PGRp xjXviHhgPI4xLoJm w6phb5TgKVvzW8CsGJLw JKkhEuy5VZYfUKO7eLM7 hZ5uYVFpHUpkc6M8rJZ3 K5KivuBszs1lq3fs AZSvIBmzW74aaCWih8G9 WAXtnEL3NAUtwBvkGaSe lV01Boc+IRWlxCiuq8Mm Jvabz8sqv2xgoWd7 IjMwJSIgdmFsaWduPSJ0 t7PvBi31N37qGIonQSFe MQFpKWLyRSGcoMipyz1l hO2pCu7+PGNvbCB3 pKT0qV7iVCSwZrC6PVgr Z436RoUfoIQlVseov1ly l3ddjJz3UyIsMYWvkgUw cRcwKFJ9j7RtVl93 M10vFYlbYCZiDKLcDHGo BIUfgPmgss8qhY0nMg8+ IW1pe9xccm60qD14yNV+ HMMzXOK4wRtzWVtt HFJqdI5fIVfmDbS9GCTb TwNnmL45jTFaDOqaHr9e xDmwhQpjKA7bMKJyzlnc i433NkSgb0ziWNZb cBKdRXpqUYA2K74mr4E0 GHWrRFNsVOL5jIL0uI1o bGlnbjogbGVmdDsgdmVy bUcqNTpoOIcrR929 IHRvcDsnPlBhdGllbnQg VpEoOGe4D6BjWzt7VRKx sYnqSG2wzXVoCTjpEz5j oXscgEgpTR0fMWJl iihdi190BzUff8ryYSXt nWSzADmeKHD2N74cu9Q6 AGLiBLXrAUT3pJM8mF7s bGlnbjogbGVmdDsg xsZqaNlhIBlqPIvsS706 IHRvcDsnPkJpcnRoIERh gVT5QX19KM48dAUmu6X0 tWD9E4VsZKJkxdrj kqjdqUT3FLPuESOrdL75 Vc8lyDwdJg6oZAEvJVA4 UHXlrLTeY9KmgJ6wBeZa GNKjFKHdB4HejDWn JVkfA415LPiuDxZ5JWTn ijJjV0GhYVKdjYyvRwN0 d0S1Pj2AI4S3WW79KM44 kMKtw0F3aLI8Q7Jw NNBwljoswkulcRG2WXAd XMTjjU17Hq6bpTosZc1l TKJjFCD9YNEboNUeJ6Te kC8eHeMzDTQuDAYb U5JtiVLsMOfhZ015MBjt HgA1DZPxfqKfZ3HdBNFi bJktGvT7k6I1Fp4VHSr7 IS80JC05pPGrp0R8 dYH4P1RjDZMhfcupipij sBA9AOWyFHQatL96Eh1v tFslOf3lWXSnRME3KYLl fHFrH1DjdH5kOvLj GSCtQQJcF4UntSQqBNna U604KXzxQkB3ZMUzbdFd C0LeFZQivXxaNkB6v1A5 Hu4BFYEePP19CHF6 mEI9JG26OG30Q6FfQorw dGFibGU+PHRhYmxlIHdp ZHRoPScxMDAlJyBzdHls ZW8mUa6jUTNaACRe tHqrvOSxClAgk7ksQUIw MXuhYO0hzDhbJ6VezQP3 LSBxy2g8Rk19G64gB2Xw dXA+FVYutOH1sMK7 sL9ySwDjCcE1GBzpM111 EvArhXIeJvudd9grn1mk xDz1DrD0MYVllnHwfYck BMY7u7HpBn28Y30z IHdpZHRoPSIxNSUiIHZh yFmajk8xkJ6lEp5+PGNv jQW1uSJ9jR6dYuTrUjE8 TAbvF303QtJnxTNu Bijfd9lci0ykpDx3VwLu QDEahbIhrQbkYTB7e1Cr Wr29S2VobVbxi0UaGum3 wd53iYCnl3C4lLZ7 Y6KtIYRpgioujJDygDek VY0jBMLnzodjBDInxI8q WHTgH7y2WsMlHtM9EDad L3UscnK9ZHLmlGWg TRntELQ0L71tm5S8KFSq IIUnZGP3mFA8oS6bjGeq bjogbGVmdDsgdmVydGlj ATrhTXdjE689UFWj sCxpFYRuuM6sLRQlbEKd uKfiQH5mRDFqrdkkVv1D PLNVEJDKCF9ENNrryHU+ VSGiVOM9aZhgZDnx HYJqaC5lBHAfN7x4XvKw ZmO3YQcoZ2BlRZUsbrnd Lj25vB5yXiKlLrK0WUbl U1RirlT4OPBexFYh MBglPIW5W98mt8B6MBTb UVBbCNA8zRY1iO8hsXgy bjogbGVmdDsgdmVydGlj PFyxYShfG280XJTe rPhaHvS2PsK9QjT1CTA1 U0QqXtl1UCLxkPccGO4v xSUbKVfeDb3baDlxgGze IQ4kCNJnwakyJBYj nU0rBONjeWGljZjpBP8g WIQgbzvet102PeRxKER0 UZPstMKhO6NuiV8pAdOj DIHzWSEnM7IcsRBv QWmsT775WTedQuI8LXEc jaExL2GrOXNabGhkTrM3 c8R9Wh1kDWIYHWKxcyzp dGQ+MWNsTQO7gLln BTjiVHSulJ1vQNPgH0v9 GsZcZrW1MBzlZ4FoCQTt hywnEz23fS7oMsBcWwT0 FFcuQ3UeayT5GNNk eFZhWBhgXPM2H78cy9I6 UJWjWCFdGIU8mPA0cT8e bGlnbjogbGVmdDsgdmVy zNktUMsyAAseD319 IHRvcDsnPkZlbWFsZTwv dGQ+QFMzCIN2oMrpYCas UPAuaP9aIEPjL6d0NaQp VjR4OWrvH9CkFPOn jxywRv91pU2wTtVcJoX0 VSxqJ1VstnW5BEHycESv IDmuRYU6G63ci3C4XEJc RBWmNLB5xJI3kY4o bGlnbjogbGVmdDsgdmVy wMklIVnxIBbbO007QZLj hHmgJuvqCuDLjq0oQF6s ZjwvdGQ+RY83vm18 S4UhBqrrWyl7KPIpQBU7 xAP1nK4oIXIdIHovp4M9 jZZ8V2FfgnMdub9kq0tk UMCuYPcsM38ryZLk g1T5KBBfrWQ2IEKzdDyn UsEtoV70Awr+PGNvbGdy q0TnBfvyz4twi1ufwHt2 IjMwJSIgdmFsaWdu GYZ1v4OoAt99N93cXOyj ZHRoPSIzMCUiIHZhbGln sb1zaP2zAg8+PGNvbCB3 oWF4sY7kFqWqFgM8 RNjwS079DzGayUBhBxfd e3ayg2awkFf0DfPuQQMt ejSldKzjHPS3x8IyYp62 Q1LbkTvks0ZsRxz3 ea83kBOgo6J2bYL5P1Pv EFTxrvifrWDkmVhbNG0m VNTdbynhWAVeyO3uSOYg K9s1DxIaEhO5TSdj K6MydgY7CRArcTDsAPGj rDFYcF8mauhsj0fmholz QaHnXWDjCBw1AQp3RVCh hXkcEsOdNAG5XoR4 WJX3yJRctX6brGktuspm qJ2tQai+KZf6h0flnGLk EF5ktYP2EG11AQ68pRTu l4U2nIA7B4VwROQw dzgpyqvroXP8NPZaQYJl eN54Ka6vuLsrYh4rOEQp BQT7IGZeiSWnO8TlwT0c UxUuHPQuTTMyK8Ly hIDgZTftB076TOkdLzT8 CHGhetMnU6PnFCJseUqq DaB8e2G2Tt9WNO08VT20 ZY21jSXcf1C8kON1 R6KnBBNotiqockjguFL9 THBbMZVbpQ38Av3ltQdz Wk2nXTCfUQP2EIPmbEJw X3SsyN5uYtUcJQKo IPLpA9AgiFBlARtqI973 TAfqLaI5UNVbtrBlW9Mb CAFmxEvmWtQ1c6B4Gd8R Lj91WG25MF30kFTu v2E9vDG0S2JtKYZfxrvy vgcabON3KCHuJPVddQ79 Hb2ghWqrEp1tZTMqKYT5 UUEvwYZmE7ByvE7a FlIwRHJpEVAaI8QdnWGq WRbaU760YFhuQoR3QRKl dhRwG1HsUKVbmEsiQzU8 x3O2Sf8TVNkjron4 F7UpUyxljFU+CD75RUTu QC51uYZwxDVdg8qdyRk7 DeBuGCHlDZX4gSseIMuj h0HyOLKbW91oiFDy c2U6 (more content not included)... Normal [facility] C Urineon 03-08-2022 Bacteria identified [...] Locations R1: This test was performed at: [facility], [address] [place] [address], [address] , , [facility] Comment on above: Performed By: #### 2 [id number] ####[facility] [address] [place] [address] Reminderson 03-06-2022 Reminders - From: Lupis Turner To: EU - Clinical; Sent: 03/06/2022 14:52:59 EDT Show up: 03/09/2022 14:52:00 EDT Subject: UA micro, CX Reminder/Recall UA micro/culture done on 03/06/22 Normal [facility] URINALYSISOrdered By: Nazario doyle on [...] PM) Normal Negative [facility] UA Auto SS [place].plasma/Lithiu m.RBC (Bld) [Mass ratio] 0-3 /HPF Normal [...] [Mass/Vol] Negative (03/06/22 2:52 PM) Normal Negative [facility] UA Auto SS Specific gravity (U) [Rel density] 1.015 *NA* (03/06/22 2:52 PM) Invalid Interpretation Code 1.005 - 1.030 [facility] UA Auto SS UA Spec Desc Random Urine (03/06/22 2:52 PM) Normal [facility] UA Auto SS Urobilinogen Qn (U) 0.8078345 {Shan'U}/dL Normal 0.0 - 1.0 EU/dL [facility] UA Auto SS WBC Auto Ql (U) Negative (03/06/22 2:52 PM) Normal Negative [facility] UA Auto SS WBC LM.HPF (Urine sed) [#/Area] 6-15 /HPF Invalid Interpretation Code 0-5/HPF [facility] UA Auto SS Urinalysison 03-06-2022 Bacteria LM Ql (Urine sed) 2+ /HPF Abnormal Trace [facility] Comment on above: Performed By: #### 1 [id number] ####[facility] [address] [place] [address] Bilirubin Ql (U) Negative Normal Negative [facility] Comment on above: Performed By: #### 1 [id number] ####[facility] [address] [place] [address] Clarity (U) SL CLOUDY Abnormal Clear [facility] Comment on above: Performed By: #### 1 [id number] ####[facility] [address] [place] [address] Color (U) YELLOW Normal Yellow [facility] Comment on above: Performed By: #### 1 [id number] ####[facility] [address] [place] [address] Epithelial cells.squamous LM.HPF (Urine sed) [#/Area] 3-4 Normal 0-2 [facility] Comment on above: Performed By: #### 1 [id number] ####[facility] [address] [place] [address] Glucose Test strip (U) [Mass/Vol] Negative Normal Negative [facility] Comment on above: Performed By: #### 1 [id number] ####[address] [address] Hemoglobin Ql (U) Negative Normal Negative [facility] Comment on above: Performed By: #### 1 [id number] ####[address] [address] Ketones (U) [Mass/Vol] Negative Normal Negative [facility] Comment on above: Performed By: #### 1 [id number] ####[address] [address] [place].plasma/Lithiu m.RBC (Bld) [Mass ratio] 0-3 Normal 0-3 [facility] Comment on above: Performed By: #### 1 [id number] ####[address] [address] Mucus Ql (Urine sed) TRACE Normal [facility] Comment on above: Performed By: #### 1 [id number] ####[address] [address] Nitrite Ql (U) Negative Normal Negative [facility] Comment on above: Performed By: #### 1 [id number] ####[address] [address] pH (U) 7.5 [pH] Invalid Interpretation Code 5.0-9.0 [facility] Comment on above: Performed By: #### 1 [id number] ####[address] [address] Protein (U) [Mass/Vol] Negative Normal Negative [facility] Comment on above: Performed By: #### 1 [id number] ####[address] [address] Specific gravity (U) [Rel density] 1.015 Invalid Interpretation Code 1.005-1.030 [facility] Comment on above: Performed By: #### 1 [id number] ####[address] [address] Type of Urine collection method Random Urine Normal [facility] Comment on above: Performed By: #### 1 [id number] ####[facility] [address] [place] [address] Urobilinogen Qn (U) 0.2 {Shan'U}/dL Normal 0.0-1.0 [facility] Comment on above: Performed By: #### 1 [id number] ####[facility] [address] [place] [address] WBC Auto Ql (U) Negative Normal Negative [facility] Comment on above: Performed By: #### 1 [id number] ####[facility] [address] [place] [address] WBC LM.HPF (Urine sed) [#/Area] 6-15 Abnormal 0-5 [facility] Comment on above: Performed By: #### 1 [id number] ####[facility] [address] [place] [address] Consent for Procedure/Surger yon 02-26-2022 Consent for Procedure/Surgery [id number] 9#1.00CD:127 Normal [facility] RAD - MISCon 02-26-2022 RAD - MISC [id number] 8#1.00CD:127 Normal [facility] RAD - Ultrasound Reporton RAD - Ultrasound Report [id number] #1.00CD:127 Normal [facility] Ambulatory Visit Summaryon 0 02-25-2022 [...] JENNINGS, Kwadwo Andrade Where: [facility] Flo Normal [facility] Patient Educationon 02-26-20 Patient Education [...] these instructions at home: Medicines ? Take xlkt-okq-xqugwid and prescription medicines only as told by [...] 04/13/2009 Document Revised: 03/13/2020 Document Reviewed: 03/13/2020 [employer] Patient Education ? 2019 [employer] [facility] Urology Office/Clinic Noteon 02-25-2022 Urology [...] urine The Urethra was dilated to: 18-30_ [place] with sounds. urethra bled. dry. Removal: Cystoscope [...] [facility] [address] , [place] [address]- Additional Instructions: Patient Education Kidney Stones, Cbbf-sh-Ruym Devonte Nickerson personally scribed for Dr. Saez [...] Grandparent. Diagnostic Results Tests Reviewed: Reviewed UA. [facility] Comment on above: Result Comment: Elec tronically Signed By: SHAYNA JENNINGS, Kwadwo R\.br\Date and Time Signed: 02/25/22 15:21 EDT\.br\Electronically Co-Signed By: Devonte Echeverria\.br\Date and Time Co-Signed: 02/25/22 15:19 EDT Pre-Certification Formon Pre-Certification Form [id number] 0#1.00CD:127 [facility] Reminderson 02-10-2022 Reminders - From: Kristyn Echeverria MA To: EU - Clinical; Sent: 02/04/2022 16:03:36 EDT Show up: 02/08/2022 16:03:00 EDT Subject: Urine Culture Reminder/Recall Urine culture Pt is currently . ANNITA addressed [facility] C Urineon 02-07-2022 Bacteria identified Cx [...] Locations R1: This test was performed at: [facility], [address] [place] [address], [address] , [place], Normal [facility] Comment on above: Performed By: #### 2 [id number] #### [facility] [address] [place] [address] Performed By: #### 2 [id number] ####[facility] [address] [place] [address] Coding Summary.on 02-07-2022 Coding Summary. CD:[id number] Gh0bWw+PGhlYWQ+PE1FV JZqU96vrXRkwX7LM1cHG V4PRUPLCEJAXR3UEP4vz QI2FJdcS7MvxhZj FalklLIdCW38VQm0EIQ0 eKnjANxxqZ5mcEIbA5y9 PdWwBG04bC95ZUvdAHYk DeX3ZyOfpayqfWVd Z4scJnIpiUAuOnr+PHRh YmxlIHdpZHRoPScxMDAl ArVuzMocTS9yTn0nYGMq LWNvbGxhcHNlOiBj i6rqIKUpQMbnIJ0qbAli Y5GlnXM6NBPmx2f6Qd39 dHI+TUQeBZD6jPpqILgf w340NnYwv6lwYZY0 vEDsRGngYIB5M70sr9Y6 RHFwSVUtJUK9kAP3lP1s zKoxomevI3YnvJIsStT1 TGX3vXUeeW6yzIdt fkafzT2xPjs+A74VES9O JBQHGB4IXiz1W9YmGfdg dHI+XG70MFTlOL85xIIk xJHvh5fpkTf2BgUl DHBmRWV0jCagFDhqg2Qi LYAbT38ccQAms2B1ZOMg qOypdMBlNnGftOZ2qW7l REhvnbrkf7dnmwyo Tclow3izyu67zP66M13r XObuRRLjHGN1KLEaPGAk tTwzol9whT4xYg0+IDxj l1sys2agtRz7DgMp LBIwvwCioJqeGEA8t2Uc Iu91H8XvoJehz4RuJhp3 jt57hOMie5M2tON0UYlo LQYwgH3yTMrtFvR8 GOSoAbKptE80xOMiAWol Bc6moGkucYeaPF4xZOOd kjnqGAYlfV0nWDMekEYw cSupXC9cBESkvtig y627NrXdKRR3VPApiQPv N2LlhS6gRuReILSlWHSs W1OemXEdTIidZ345JEjl GdI0OPWsgnYyP4Xc AMOecYjvCiT8a6B1Ti7V n0GbpcjrDMI7FIycCQOf FfIxRfXaBcZ9G1JbFuj5 SNAcjAbkEF4rG6Ub VKCjamsiwzfpqUM2WXRp IJDtdS61nMTfPUxmLi5w c3Q1w396DFTxXPSeqA73 Xw4meMnnMCDunWLR oF7rjdrnf8pqwjerQeQu CUOyWLi2KMv5LQVdiDxc LfCbKTQ6ZlO8EGG6gAJo hB7nkJifotbwvC9c Oyc+O16fsL5jAHE4VRQ9 cndhZMZgbwJcDI60WI66 H9WcRgrfmAGacGQ+PGRp szNmzNqrAR6xVsXo z6pui4JxJZvfR2AaKETh YDsdNji2GZZmBPO4qDC8 yY3hANDaIVoww7W1bEJ7 D8FuviOpxx9xe8pc BTTaLMbmC13iiJHhk0O7 FTJrgST7XQUngNvaQfVt eZ18Eht+PXPtaSkaz2In Ezeyc6fmr0wgjAh3 IjMwJSIgdmFsaWduPSJ0 r1QgWv19M59jKZthHJKm HHIqSRMsGJHwoTxwpy1a pU8cJy7+PGNvbCB3 rTT2aL2tAYLlYqH8VEmd N998LxLvdTQiBpvxj2ch p6okqFj1LnUkCQGqvzAl eKauVMK6c2EbMo96 V80cLVvhEDQrRDGuPSNf TTZdaGbisq6iaA3rSg8+ NV9ey7ottx24xN66qNT+ VGEjNWR5rVnnFWdw TTPaaZ6vEZolSrQ6PDPt HvSiqY21cENiVYdsGy4z eLwxmBsmKS8yEKBkimbq b473XeIdv1hpJBJw eBCgIRhhLGA4M71wu1A4 XZHkWDInFPO4wDM0vJ0q bGlnbjogbGVmdDsgdmVy oGrhMNcaSUbzE881 IHRvcDsnPlBhdGllbnQg EzNnTXw8Q9ThWtz6VNGx xHobGK7goAYfBTfcNa3u fUbikChyBR8mJFIp novsj487EcBll5bqMVNr sEXvVHvqDBX0V92al9S5 VISvCQLxLCE3iUK3xC4b bGlnbjogbGVmdDsg bvSkvRzmRKssHYyfP055 IHRvcDsnPkJpcnRoIERh nHC8UI77IS10kCWzr6M8 bHK4E4WgNECnzgxz dyjyhFW6LCAdLEVvrK98 Qd3ykBjrUn6gMGZoRPC8 ZRMufROaZ5YalD1wZvAt HDQhORZpT0VowIEr XSbnV372LBinCtY0ALGg iiCwV7CnTEQgeQuwZcD6 c3U3Sd5WY3T8SC52KW64 tLZnm9K5hGJ5R0Np VDAghvvlwgfftDF2QKFo TNOmoA14Ii8mtHzdGa3m YLKoMDD8VTBlpAOvC5Wj gP5mTaUzKQEqHPJx Y3QjsVPiQIzmH235RGqp UhC2SOCwabSuY4DjYOZc oLqdKoY6n9R0Mn8BTYw3 AB11JC73aJIao9U1 nWB2W5MhOMCwoavbdylk iRW2DFCqSVDelR65Bh1w lXjyBd9oDCQpTFE6JNXl eJWjP7MskR5vQdHg RGHxERSoT6MzzZZtIKrj A085CBbpTpW4GWFpssVs N1NpXPXslBurPuD0a5G0 Mz9UJKLaYD79FSB5 hQB6MX89UB32M0MoJbpg dGFibGU+PHRhYmxlIHdp ZHRoPScxMDAlJyBzdHls RX9oHj9tFIPyOVAa jRpxqEBdFrJte9fsMVCn OFbgPN3kmPqsF1YxnDB6 USXnb9r7Ow75Q53uK6Wk dXA+UMJucVN4kBZ8 wX1qEzTxAhR0BWodX472 KbEfqKUuCduat8mof9by dNh7HkX6IZMvfsHxaIxa YCO3c9VfOs17L62m IHdpZHRoPSIxNSUiIHZh rAnyqw8ksP6oSr4+PGNv cOI7oDB3nQ1dHgSpVpC6 KHzhW455BlLwuMFl Ukldk0yhr5wbeLa8AwMm FLYwecGtsCixUWA1a1Hf Ln18N2KttZiug3JiZwt3 at72hFCif4Q9cJH2 E2CuMMXqzuccxWSytZyj HM2rBINomqhuXDIzrJ1p JULuI3n2FzSrXcD3JQiv G0JxgrJ7LXSthRZi KKsuYSR7A63lj4X1TPHs WJRgHKI0dPJ7oJ5duPoo bjogbGVmdDsgdmVydGlj CYnzMDtkI410GSXy aHzgPGJjnV6cGTUkjQRj gVerQS8kWZAseluxZw5D QWWAILXNHU0LFBlwtRF+ RJFsXMS1hMgcUKrf TLXndM0xLSKdO7h6NkMq IzS0FSdpW3HaZCFibmjy De52fB6kFxJhWlQ8GLcb B3XgvzB9TNIjaNPj EMocVGW0J96mc0E1GJQc ILRxBZJ3wGG2jT8ziEda bjogbGVmdDsgdmVydGlj AWhiGChnY014DJAi hNutRpB1JnJ6EnS2FVK7 E2QrXal2BBQqlLznZR1g uKDuHKwnAh7ifBbycKcq YS4hSGHgdaudMSWx aM9cTVRpwWQceKciHV2j RZIdntgaz123TkPdQCC5 TPJhqANgM4LwiW3dWvOc QIVyWIRuB0WrhMOb VLozS950EPdfDcZ6PCWa yjSwM7TwBTSntBgcRcY5 a4D9Lq1bFSVOOVNdektb dGQ+UEMvIYK9yWcf UVofHUVvlS8tWAZcB0f3 JlGzHsY8VIdqO2DaULMa ogsfKa38iE3nQpUvRoI1 GWlzE1QxjwA1YBKk kLOfVIznFAR9D35wv7K5 BBWpHEJuOCI4yRP0cY2f bGlnbjogbGVmdDsgdmVy qKfgDYpnXIsrK986 IHRvcDsnPkZlbWFsZTwv dGQ+FQIiNJE5dAcmKWmt WXUzgT2uNVRmP3b8CpXo WbU2RFexO7RiTZCg uypgFx84jJ9sXrPyEyJ8 SQrgV9HjicI2FHGlyNMi OYtnAOC4Y54oe4T9VRNh HQVbWZG6wEE6pY6b bGlnbjogbGVmdDsgdmVy uFrjMLyqBJjbV396IFZn kArqTdhsIfNCkd1fSQ7s ZjwvdGQ+PX80uq48 M4CbFjumTzm9GIFwDLQ8 pWL9nK4xORGnOAlxb0W6 qIV5V5UmhcEgfl5ar0wm BZPhTLkbM91leXRv u4M6UFJjaGX3KTIlvOoq BmMtiC42Jpv+PGNvbGdy u6UiWfkrr1gbk7dybMc2 IjMwJSIgdmFsaWdu TNS1u2WcHq63Y41uDRkr ZHRoPSIzMCUiIHZhbGln bb2lyX1cVa1+PGNvbCB3 tBH7uE3qEuAqTtC8 BSwiD214EwMeyTFqHljj b4tkh9cylTd5WnTeRWAa rtBreGiaWCV9b2SoWx05 G2UudChtw6MsAdl0 lv54gBWye1H9yYG2P8Sr BIChknowgEZlbIdmUV9l IDFulqrrIRMhwF4gOCLa Y3g1KgBlAlG0UPdf Z8AfxqS8BSPtbQExACGu jFBGeY2zpfzjn3cmggfq FlPwLVSjZXb8ZVe6DPWu mVzdCdAkYNJ8YtY1 HLK9nDIljL9ilPzpabdp bA2bKoi+SZy1v1bgpKXm FY7gkUW9AX03NU08vFEs z3T2aLF2Q1SxIQGt irukmmuhwWV2JQGhBYTv lA24Qw6woPqzLk2xDZNf SLW8SAXyiAUnI8NwsU8f NcIzXULaHWSnA0Bl pEWiJFigO516VLnnPyB3 AOXsymEuD0LoCVUpgYqg WkF3w4X9Vf5DEC85NE47 FO97uEMyo1C3xAU2 M8CpJFCxqhskeyireMC1 MJSxEBToaP19Xd3phKrg Wt9dNDFbLYL7QZZxkGOa N0OwqE2gDrCiPILj YRIrF5PhfPFvNMzsM541 VRxzXdI3MAWcjlTzI4Fl IWYcvJvaErY2h0S1Xs7Z Hn09TU28XH85cCIj b4D5kHF3O3JjYXZzefqx thtquLV9MPMoVFPkcL16 Ey5fkPnhFh4rMNWoHSY8 ECWgqIOpH5JdgR0t MhAmXWLnGQWkJ1BrlJNs UYwgW236YLhtWgY3OHCx voJhK4XkPRCoiFplRlB8 e2G0Hl7MUKgiaqg2 B4MiDsbbmCK+XB83GLAm JV46wBQimXCtq2iopPo0 FaBpMFJwPQF8aLaqJLby g4QdPFCnV68ucDVq c2U6 (more content not included)... Normal [facility] US renal BIon 02-07-2022 [place] [address] Ultrasound Report Signed Patient: Jessa Chatman MR#: [id number] 9 : 1985 Acct:[id number] Age/Sex: 36 / F ADM Date: 02/07/22 Loc: Room: Type: [facility] Attending Dr: Saida Abad PA-C Ordering [...] Mark Stark M.D.02/07/2022 3:24 PM Dictation Location: [facility]-13 Tech: Saida Gilliland Transcribed By: KARI 02/07/22 1524 Dictated By: Mark Stark DO 02/07/22 1522 Signed By: 02/07/22 1524 [facility] XR KUBon 02-07-2022 XR KUB [facility] Main [place] [address] [place] [address] XRay Report Signed Patient: Jessa Chatman MR#: [id number] 9 : 1985 Acct:[id number] Age/Sex: 36 / F ADM Date: 02/07/22 Loc: Room: Type: [facility] Attending Dr: Saida Abad PA-C Ordering [...] Mark Stark M.D.02/07/2022 3:13 PM Dictation Location: [facility]-13 Transcribed By: KARI 02/07/22 1513 Dictated By: Mark Stark DO 02/07/22 1512 Signed By: 02/07/22 151 [facility] Patient Educationon 02-05-20 Patient Education Pharmacology [...] Trouble breathi (more content not included)... Normal [facility] Urology Office/Clinic Noteon 02-04-2022 Urology Office/Clinic Note Chief Complaint referred for recurrent UTI. [facility] Staff Jessa is here today as a new patient referred by Herve REGISTERED DIETITIAN for recurrent UTI.Started Cleocin 300mg on 12/24/21 [...] on Cleocin x 7d in Dec per [employer]. pt has not noticed any connection with [...] baths & hot tubs, avoid any scented [employer] products, urinate after sexual activity, etc) PVR [...] E&M of New Patient Moderate 45-59 Min 27494 Urnls Dip Stick Auto w/o Microscopy POC 65160 US Renal XR Abdomen 1 View Orders: [...] Protein Urine Dipstick: Negative (02/04/22 14:41:00) Specific Robinson Urine Dipstick: 1.025 (02/04/22 14:41:00) Urine Appearance Urine Dipstick: (more content not included)... Normal [facility] Comment on above: Result Comment: Elec tronically Signed By: SAIDA ABAD PA-C\.br\Date and Time Signed: 02/04/22 16:12 EDT Vital Signs Date Time Vital Sign Value Performing Clinician Facility 06-25-2022 09:14-0400 Blood Pressure Location Jalen [facility] 06-25-2022 09:14-0400 Diastolic blood pressure 86 mm[Hg] Jalen Mor[facility] 06-25-2022 09:14-0400 Heart rate 77 /min Jalen Mor[facility] 06-25-2022 09:14-0400 Systolic blood pressure 130 mm[Hg] Jalen Mora [facility] 06-18-2022 10:45-0400 Body height 162.56 cm Devin Lam Other [facility] Other 06-18-2022 10:45-0400 Body mass index (BMI) [Ratio] 28.49 kg/m2 Devin Lam Other [facility] Other 06-18-2022 10:45-0400 Body weight 75.3 kg Devin Lam Other [facility] Other 06-18-2022 10:45-0400 Diastolic blood pressure 76 mm[Hg] Devin Lam Other [facility] Other 06-18-2022 10:45-0400 Respiratory rate 16 /min Devin Lam Other [facility] Other 06-18-2022 10:45-0400 SaO2% (BldA) [Mass fraction] 99 % Devin Lam Other [facility] Other 06-18-2022 10:45-0400 Systolic blood pressure 118 mm[Hg] Devin Lam Other [facility] Other 05-13-2022 16:00-0400 Body height 162.56 cm Devin Lam Other [facility] Other 05-13-2022 16:00-0400 Body mass index (BMI) [Ratio] 29.73 kg/m2 Devin Lam Other [facility] Other 05-13-2022 16:00-0400 Body weight 78.56 kg Devin Lam Other [facility] Other 05-13-2022 16:00-0400 Diastolic blood pressure 68 mm[Hg] Devin Lam Other [facility] Other 05-13-2022 16:00-0400 Respiratory rate 16 /min Devin Lam Other [facility] Other 05-13-2022 16:00-0400 SaO2% (BldA) [Mass fraction] 97 % Devin Lam Other [facility] Other 05-13-2022 16:00-0400 Systolic blood pressure 114 mm[Hg] Devin Lam Other [facility] Other 04-16-2022 10:30-0400 Body height 162.56 cm Devin Lam Other [facility] Other 04-16-2022 10:30-0400 Body mass index (BMI) [Ratio] 30.72 kg/m2 Devin Lam Other [facility] Other 04-16-2022 10:30-0400 Body weight 81.19 kg Devin Lam Other [facility] Other 04-16-2022 10:30-0400 Diastolic blood pressure 80 mm[Hg] Devin Lam Other [facility] Other 04-16-2022 10:30-0400 Respiratory rate 16 /min Devin Lam Other [facility] Other 04-16-2022 10:30-0400 SaO2% (BldA) [Mass fraction] 99 % Devin Lam Other [facility] Other 04-16-2022 10:30-0400 Systolic blood pressure 130 mm[Hg] Devin Lam Other [facility] Other Encounters Encounter Date Encounter Type Care Provider Facility Start: 11-16-2023 End: 11-16-2023 ambulatory MOUNA LUIS M Not Available Start: 10-28-2023 End: 10-28-2023 ambulatory MOUNA LUIS M Not Available Start: 10-23-2023 End: 10-23-2023 ambulatory ARACELI MAGALY [facility] Start: 10-08-2023 End: 10-08-2023 ambulatory MOUNA ANGEL Not Available Start: 09-23-2023 End: 09-23-2023 ambulatory MOUNA ANGEL Not Available Start: 04-15-2023 End: 04-15-2023 ambulatory Devin Lam Other [facility] Other Start: 04-15-2023 Telephone encounter Devin [facility] Start: 01-19-2023 End: 01-19-2023 ambulatory Devin Lam Other [facility] Other Start: 01-19-2023 Telephone encounter Devin [facility] Start: 12-19-2022 End: 01-07-[address] MOUNA ANGEL . Facility:[facility] Start: 12-05-2022 End: 12-06-[address] MOUNA ANGEL . Facility:[facility] Start: 11-19-2022 End: 11-19-[address] MOUNA ANGEL . Facility:[facility] Start: 11-16-2022 Encounter for preprocedural laboratory examination DR MOUNA ANGEL . [facility] Start: 11-13-2022 End: 11-14-[address] [...] encounter procedure Dasia Addison [facility] Start: 06-25-2022 End: 06-25-2022 Patient encounter procedure Jalen Mora [facility] Start: 06-18-2022 End: 06-18-2022 ambulatory Devin Lam Other [facility] Other Start: 06-18-2022 Office outpatient vi sit 15 minutes Devin Stephanies [facility] [place] Start: 05-13-2022 End: 05-13-2022 ambulatory Devin Stephanies Other [facility] Other Start: 05-13-2022 Office outpatient vi sit 15 minutes Devin Stephanies [facility] [place] Start: 04-16-2022 End: 04-16-2022 ambulatory Devinkye Arroyos Other [facility] Other Start: 04-16-2022 Office outpatient vi sit 25 minutes Devin Stephanies [facility] [place] Start: 04-15-2022 End: 04-15-2022 Lab Drop off SAIDA ABAD [facility] Start: 04-15-2022 End: 04-15-2022 Patient encounter procedure Kwadwo SAEZ [facility] Start: 03-06-2022 End: 03-06-2022 Lab Drop off Kwadwo SAEZ [facility] Start: 03-06-2022 End: 03-06-2022 Patient encounter procedure Ravinder MCCAULEY [facility] Start: 02-04-2022 End: 02-04-2022 Lab Drop off SAIDA ABAD [facility] Procedures Date Procedure Procedure Detail Performing Clinician Start: 11-09-2013 Colonoscopy and biop sy of colon Kwadwo SAEZ Start: 11-09-1989 History of tonsillectomy Kwadwo SAEZ Start: 11-09-1989 Tonsillectomy SAIDA HELMRY Start: 11-09-1989 Tympanotomy SAIDA [place] Immunizations Immunization Date Immunization Notes Care Provider Rao rincon 11-09-2020 SARS-CoV-2 mRNA (tozinameran 5y-11y) vaccine Jalen Mora [facility] Comment on above: Result Comment: 2 [facility] 03-10-2015 tetanus toxoid, reduced diphtheria toxoid, and acellular pertussis vaccine, adsorbed Kwadwo SAEZ [facility] Comment on above: Reason for Medicatio n: Other (see comment) NEGATED: Highlighted row has not occurred!02-19-2019 influenza, seasonal, injectable Patient Objection Devin Lam Other [facility] Other Payers Date Payer Category Payer Unknown [id number] 2.16.84 [id number] 1986 Unknown [id number] 2.16.84 [id number] 1986 Unknown [id number] 2.16.84 [id number] 1986 Unknown [id number] 2.16.84 [id number] 1986 Unknown [id number] 2.16.84 [id number] 1986 Unknown [id number] 2.16.84 [id number] 1986 Unknown [id number] 2.16.84 0.1.784769.3.579.2.593 1986 Unknown [id number] 2.16.84 [id number] 1986 Unknown [id number] 2.16.840 .1.379942.3.579.2.1259 1986 Unknown [id number] 2.16.840 .1.481387.3.579.2.1259 1986 Unknown [id number] 2.16.840 .1.151938.3.579.2.1259 1986 Unknown [id number] 2.16.840 .1.776514.3.579.2.1259 1959 Unknown [id number] 2.16. [id number] 1959 Unknown [id number] Social History Date Type Detail Facility Start: 02-04-2022 End: 02-25-2022 Tobacco smoking status Never smoked tobacco (finding) [facility] Tobacco smoking status Never [facility] Sex Assigned At Female [facility] Functional Status Date Assessment Result Facility 06-25-2022 Functional Status N/A [facility] Clinical Notes 02-04-2022 to 10-23-2023 Note Date & Type Note Facility 10-23-2023 Note F/U with OB and mate rnal medicine as scheduled [facility] 10-23-2023 Note [facility]TP CARDIOLOGY PROGR ESS NOTE HPI: Jessa Chatman is a 38 y.o. female here for tachycardia during Patient here per Dr. Angel for tachycardia in . She is currently 32w5d along. REGISTERED DIETITIAN started her on metoprolol tartrate 25mg daily [...] scheduled RTC 2-3 months or as needed [facility] 10-23-2023 Note Patient here per Dr. Angel for tachycardia in . She is currently 32w5d along. REGISTERED DIETITIAN started her on metoprolol tartrate 25mg daily a few weeks ago, which as helped with palpitations. HR gets as high as 147 at rest sometimes. This issue went away after the of her last baby. Review of Systems Cardiovascular: Positive for dyspnea on exertion. Neurological: Positive for light-headedness. All other systems reviewed and are negative. [facility] 04-15-2023 Evaluation note Encounter Date Diagnosis Assessment Notes Apr, Spontaneous rupture of tympanic membrane of right ear concurrent with and due to acute suppurative otitis media (ICD-10 - H66.011) [facility] Other 01-11-2023 NoteOPERATIVE NOTE OPERATION DATE: 11/19/2022 PROCEDURE: Suction D AND C. PREOPERATIVE DIAGNOSIS: Missed first trimester. POSTOPERATIVE DIAGNOSIS: Missed first trimester. ANESTHESIA: General. SURGEON: Mouna Angel D.O. ENGINEER CHIEF: None. FINDINGS: Products of conception. SPECIMEN: Products [...] products of conception were removed using a 9-Gabonese suction curette. Excellent hemostasis was noted. The patient tolerated the procedure well. Sponge, lap, and needle counts were correct x 2. All instruments were then removed from the patient's vagina. The patient was taken to the Recovery Room in stable condition. [id number] Evaluation + Plan note Diagnostic Tests Pending * UTI ([facility]) 07/03/22 [facility] 08-17-2022 Hospital Discharge instructions Patient [...] Follow these instructions at home: Medicines Take omtz-tka-jztdoty and prescription medicines only as told by [...] 10/26/2006 Document Revised: 03/13/2020 Document Reviewed: 03/13/2020 [employer] Patient Education 2019 [employer]. 06/25/2022 09:59:21 Urinary Tract Infection, Adult Urinary [...] Treatment for this condition includes: Antibiotic medicine. Kdex-xzy-qoviazd medicines to treat discomfort. Drinking enough water [...] Follow these instructions at home: Medicines Take kelr-bjl-lwqsodn and prescription medicines only as told by [...] 08/05/2006 Document Revised: 10/13/2019 Document Reviewed: 05/05/2019 [employer] Patient Education 2020 [employer]. [facility] 08-10-2022 Evaluation note* Encounter Date [...] that she can go off it completely. [facility] Other 07-05-2022 Evaluation note* Encounter Date Diagnosis [...] calf. I recommened a consult with a pens and pencils repairer. Patient would like to hold off on the referral for now. [facility] Other 06-08-2022 Evaluation note* Encounter Date Diagnosis [...] or any other dysrhythmias. She voices understanding [facility] Other [id number] Evaluation + Plan note Diagnostic Tests Pending * [facility]ments Appointment Date:07/02/2022 02:45:00 PM Scheduled Provider:Kwadwo SAEZ MD Location:[facility] Appointment Type:URO Office Visit [facility] Evaluation + Plan note Future Appointments Appointment Date:07/02/2022 02:45:00 PM Scheduled Provider:Kwadwo SAEZ MD Location:[facility] Appointment Type:URO Office Visit Diagnostic Tests Pending * Urine [facility] App[facility]ments Appointment Date:07/02/2022 02:45:00 PM Scheduled Provider:Kwadwo SAEZ MD Location:[facility] Appointment Type:URO Office Visit Diagnostic Tests Pending * Urine [facility] Other History general Narrative - Reported* Type Description Date Medical History Anxiety Hospitalization History childbirth 2014 [employer] [facility] Other Hospital course Narrative No data available for this section [facility] No data available for this section [facility] No data available for this section [facility] Summary Purpose Family History No Family [...] acute suppurative otitis media (H66.011) Referral Organization [facility] [place] Referring Provider First Name Devin Referring Provider Last Name Ziggy Referring Provider Specialty Family Prac brittanie Referred Organization [facility] Referred Provider Aldo Bolanos Referred Address ,[place], [place],[address] Referred Provider Specialty Otolaryngolo gy Referral Priority Routine General Notes Higinio Asher 023 12:56:47 PM >Received today. [facility] request us to send the referral and they will call and schedule patient. Referral was fax Clinical Notes Office [phone] Additional Source Comments INFORMATION SOURCE (unrecogn ized section and content) DATE CREATED AUTHOR 02/26/[address] [employer] [facility] DATE CREATED AUTHOR AUTHOR'S ORGANIZ ATION 07/04/2022 [facility] DATE CREATED AUTHOR AUTHOR'S ORGANIZ ATION 07/05/[address] Levy Justin [facility] DATE CREATED AUTHOR AUTHOR'S ORGANIZ ATION 01/21/2023 [facility] DATE CREATED AUTHOR AUTHOR'S ORGANIZ ATION 10/25/2023 [facility] DATE CREATED AUTHOR AUTHOR'S ORGANIZ ATION 11/16/2023 [facility] EPIC REASON FOR VISIT (unrecogniz ed section and content) weight management/ UTI4 week follow up-weight mgmt.1 month Follow up weight managementClinicalClinical Care Team (unrecognized sect ion and content) Personnel Name: ZIGGY DEVIN Address: [address] [place] [address] Personnel Name: STEPHANIELori DO DEVIN Address: [address] [place] [address] FOR RECORDS PERTAINING TO PATIENTS WHO ARE [...] BE BASED ON THE PRIMARY CLINICAL RECORDS. [employer] [facility]. provides no warranty or guarantee of the accuracy or completeness of information in this document.
== END 2023-11-23 09:34 | disposition home or self-care (01) ==
LOC: US 07:10 → FBC 08:41
PROVIDERS: Visit Provider Obstetrics & Gynecology
DX: O26.843 Uterine size-date discrepancy, third trimester (principal); O09.523 Supervision of elderly multigravida, third trimester; Z3A.37 37 weeks gestation of pregnancy
CPT/HCPCS: 76818; 76820

== ENCOUNTER 2023-11-26 07:06 | Outpatient (OUT) | payer BC, SELFPAY ==
--- OUTSIDE RECORDS SUMMARY | 2023-11-26 07:09 | XMS_ITS | CCD ---
Author Name Unknown Address [address] [place] [address] Organization [facility] Care Team Providers Care [employer] Designer Name Role Phone DEVIN LAM Primary Care [...] Translations: [acetaminophen-hy drocodone] Drug Allergy Nausea (finding) [facility] (13 sources) Banana Extract; Translations: [Banana] Drug Allergy 09-10-20 Itching (finding) [facility] (8 sources) Melon; Translations: [melon] Drug allergy 09-10-20 20 Itching (finding) [facility] (5 sources) Melon Propensity to adverse reactions Unknown [facility] Other (1 source) Acetaminophen / HYDROcodone Drug Allergy 09-10-20 20 [facility] Repository (1 source) Acetaminophen / HYDROcodone; Translations: [HYDROCODONE-ACET AMINOPHEN] Drug Allergy 04-10-20 21 [facility] Repository Medications Current Medications Medication Drug [...] day(s), # 90 cap(s), Refills(s) 0, Pharmacy: [facility] [id number] [facility], 162, cm, 02/25/22 14:21:00 EDT, [...] procedure, # 2 cap(s), Refills(s) 0, Pharmacy: [place] [id number] [facility], 162, cm, 02/04/22 14:57:00 EDT, Height/Length Dosing, 75, kg, 02/04/22 14:57:00 EDT, Weight Dosing Start Date: 02/04/22 Status: Ordered citalopram 20 mg oral tablet (10 sources) Serotonin Reuptake Inhibitor Start: 02-04-2022 take 1 mg by mouth once daily CeleXA 20 mg Tab mg tab(s), Oral, Daily, Refills(s) 0 Start Date: 02/04/22 Status: Ordered take 0.5 tablet by m [facility] every twenty-four hours Citalopram Hydrobromide 20 MG 0.5 tablet Orally Once a day Active Docusate (9 sources) Start: 02-04-2022 take 1 mg by mouth twice daily Dulcolax Stool Softener mg, Oral, BID, Refills(s) 0 Start Date: 02/04/22 Status: Ordered Start: 03-09-2015 take 1 capsule by mo [facility] twice daily as needed for constipation [...] Ordered take 1 capsule by [facility] once daily at bedtime Macrobid [...] 10 day(s), 20 tab(s), Refill(s) 0, [facility] [id number] [facility], 162, cm, 02/25/22 14:21:00 EDT, [...] Range Facility Office Visiton 10-23-2023 Follow-up visit [id number] Jessa Chatman 1985 F Date Provider Department Center 10/23/2023 ARACELI COCHRAN CARD [facility] No family history on file Level of Service:69492 [place] OFFICE/OUTPATIENT ESTABLISHED MOD MDM 30-39 MIN Normal [facility] PROGRESSon 10-23-2023 Beta HCG ( test) [...] sugar. She voiced understanding of risks. Normal [facility] PREG QUANT HCGon 12-19-2022 HCG QUANT 5 mIU/mL Normal [facility] Comment on above: Performed By: #### P REGQNT #### [facility] [address] [place] [address] Dr. Fadi Meza HCG RANGE SEE BELOW Normal [facility] Comment on above: Result Comment: 5-50 0.2-1 WEEK 50-500 1-2 WEEKS 100-5,000 2-3 WEEKS 500-10,000 3-4 WEEKS 1,000-50,000 4-5 WEEKS 10,000-100,000 5-6 WEEKS 15,000-200,000 6-8 WEEKS 10,000-100,000 2-3 MONTHS Performed By: #### P REGQNT #### [facility] [address] [place] [address] Dr. Fadi Meza PREG QUANT HCGon 12-05-2022 HCG QUANT 43 mIU/mL Normal [facility] Comment on above: Performed By: #### P REGQNT #### [facility] [address] [place] [address] Dr. Fadi Meza HCG RANGE SEE BELOW Normal [facility] Comment on above: Result Comment: 5-50 0.2-1 WEEK 50-500 1-2 WEEKS 100-5,000 2-3 WEEKS 500-10,000 3-4 WEEKS 1,000-50,000 4-5 WEEKS 10,000-100,000 5-6 WEEKS 15,000-200,000 6-8 WEEKS 10,000-100,000 2-3 MONTHS Performed By: #### P REGQNT #### [facility] [address] [place] [address] Dr. Fadi Meza CBC AUTO DIFFon 11-19-2022 BASO # 0.0 103/ul Normal 0.0-0.1 [facility] Comment on above: Performed By: #### C VDTBH #### [facility] [address] [place] [address] Dr. Fadi Meza Basophils/100 WBC (Bld) 0.7 % Normal 0.2-2.0 [facility] Comment on above: Performed By: #### C VDTBH #### [facility] [address] [place] [address] Dr. Fadi Meza EO # 0.1 103/ul Normal 0.0-0.7 [facility] Comment on above: Performed By: #### C VDTBH #### [facility] [address] [place] [address] Dr. Fadi Meza Eosinophils/100 WBC (Bld) 2.1 % Normal 0.9-7.0 [facility] Comment on above: Performed By: #### C VDTBH #### [facility] [address] [place] [address] Dr. Fadi Meza Erythrocyte distribution width (RBC) [Ratio] 13.7 % Normal 11.0-15.0 [facility] Comment on above: Performed By: #### C VDTBH #### [facility] [address] [place] [address] Dr. Fadi Meza Hematocrit (Bld) [Volume fraction] 36.9 % Normal 36.0-48.0 [facility] Comment on above: Performed By: #### C VDTBH #### [facility] [address] [place] [address] Dr. Fadi Meza Hemoglobin (Bld) [Mass/Vol] 11.8 g/dL Critically low 12.0-16.0 [facility] Comment on above: Performed By: #### C VDTBH #### [facility] [address] [place] [address] Dr. Fadi Meza IG # 0.01 10e3/ul Normal 0.00-0.03 [facility] Comment on above: Performed By: #### C VDTBH #### [facility] [address] [place] [address] Dr. Fadi Meza IG % 0.2 % Normal 0.0-0.5 [facility] Comment on above: Performed By: #### C VDTBH #### [facility] [address] [place] [address] Dr. Fadi Meza LYMPH # 1.3 103/ul Normal 1.2-3.8 [facility] Comment on above: Performed By: #### C VDTBH #### [facility] [address] [place] [address] Dr. Fadi Meza Lymphocytes/100 WBC (Bld) 29.3 % Normal 20.5-60.0 [facility] Comment on above: Performed By: #### C VDTBH #### [facility] [address] [place] [address] Dr. Fadi Meza MANUAL DIFF REQ NO Normal [facility] Comment on above: Performed By: #### C VDTBH #### [facility] [address] [place] [address] Dr. Fadi Meza MCH (RBC) [Entitic mass] 28.4 pg Normal 26.7-34.0 [facility] Comment on above: Performed By: #### C VDTBH #### [facility] [address] [place] [address] Dr. Faid Meza MCHC (RBC) [Mass/Vol] 32.0 g/dL Normal 29.9-35.2 [facility] Comment on above: Performed By: #### C VDTBH #### [facility] [address] [place] [address] Dr. Fadi Meza MCV (RBC) [Entitic vol] 88.9 fL Normal 81.0-99.0 [facility] Comment on above: Performed By: #### C VDTBH #### [facility] [address] [place] [address] Dr. Fadi Meza MONO # 0.5 103/ul Normal 0.3-0.8 [facility] Comment on above: Performed By: #### C VDTBH #### [facility] [address] [place] [address] Dr. Fadi Meza Monocytes/100 WBC (Bld) 10.6 % Normal 1.7-12.0 [facility] Comment on above: Performed By: #### C VDTBH #### [facility] [address] [place] [address] Dr. Fadi Meza NEUT # 2.5 103/ul Normal 1.4-6.5 [facility] Comment on above: Performed By: #### C VDTBH #### [facility] [address] [address] [address] Fadi Meza Neutrophils/100 WBC (Bld) 57.1 % Normal 43.0-75.0 [facility] Comment on above: Performed By: #### C VDTBH #### [facility] [address] [address] [address] Fadi Meza Platelet mean volume (Bld) [Entitic vol] 9.4 fL Critically low 9.5-13.5 [facility] Comment on above: Performed By: #### C VDTBH #### [facility] [address] [address] [address] Fadi Meza PLT 210 103/ul Normal 150-450 [facility] Comment on above: Performed By: #### C VDTBH #### [facility] [address] [place] [address] Dr. Fadi Meza RBC 4.15 106/ul Critically low 4.20-5.40 [facility] Comment on above: Performed By: #### C VDTBH #### [facility] [address] [place] [address] Dr. Fadi Meza WBC 4.3 103/ul Normal 4.0-11.0 [facility] Comment on above: Performed By: #### C VDTBH #### [facility] [address] [place] [address] Dr. Fadi Meza PREG QUANT HCGon 11-19-2022 HCG QUANT 28485 mIU/mL Normal [facility] Comment on above: Performed By: #### P REGQNT #### [facility] [address] [place] [address] Dr. Fadi Meza HCG RANGE SEE BELOW Normal [facility] Comment on above: Result Comment: 5-50 0.2-1 WEEK 50-500 1-2 WEEKS 100-5,000 2-3 WEEKS 500-10,000 3-4 WEEKS 1,000-50,000 4-5 WEEKS 10,000-100,000 5-6 WEEKS 15,000-200,000 6-8 WEEKS 10,000-100,000 2-3 MONTHS Performed By: #### P REGQNT #### [facility] [address] [address] [address] Fadi Meza US PREG <14 WKSon 11-19-2022 US PREG <14 WKS Obstetrical ultrasound, 1st trimester CLINICAL: Evaluate prior to scheduled DANDC. TECHNIQUE: Transabdominal and transvaginal obstetrical ultrasound was performed. FINDINGS: Comparison: Ultrasound 11/12/2022 There is a single intrauterine fetus. [place]-rump length is 1.81 cm, correlating with gestational age 8 weeks 3 days. No heart tones are detected. IMPRESSION: 1. Single intrauterine nonviable gestation. No heart tones detected, and no growth since previous ultrasound 11/12/2022. Electronically authenticated by: RUCHI FRANK Date: 2022-11-19 13:17 Normal [facility] PAP ACOG PANEL 2: 30 to 65on 11-16-2022 . . Normal [facility] Comment on above: Result Comment: Perf ormed at: WB Performed By: #### 4 [id number] #### [facility] [address] [address] [address] Fadi Meza Age Gdln ACOG Testing 30-65 Normal [facility] Comment on above: Performed By: #### 4 [id number] #### [facility] [address] [address] [address] Fadi Meza DIAGNOSIS: Comment Normal [facility] Comment on above: Result Comment: NEGA TIVE FOR INTRAEPITHELIAL LESION OR MALIGNANCY. Performed at: WB Performed By: #### 4 [id number] #### [facility] [address] [address] [address] Fadi Meza HPV Aptima Negative Normal Negative [facility] Comment on above: Result Comment: This nucleic acid amplification test detects fourteen high-risk HPV types (16,18,31,33,35,39,45,51,52,56,58,59,66,68) without differentiation. Performed at: =G Performed By: #### 4 [id number] #### [facility] [address] [address] [address] Fadi Meza HPV Genotype Reflex Comment Normal [facility] Comment on above: Result Comment: Crit eria not met, HPV Genotype not performed. Performed at: WB Performed By: #### 4 [id number] #### [facility] [address] [place] [address] Dr. Fadi Meza Methodology: Comment Normal [facility] Comment on above: Result Comment: This liquid based ThinPrep(R) pap test was screened with the use of an image guided system. Performed at: WB Performed By: #### 4 [id number] #### [facility] [address] [place] [address] Dr. Fadi Meza Note: Comment Normal [facility] Comment on above: Result Comment: The Pap smear is a screening test designed to aid in the detection of premalignant and malignant conditions of the uterine cervix. It is not a diagnostic procedure and should not be used as the sole means of detecting cervical cancer. Both false-positive and false-negative reports do occur. . Performed at: WB Performed By: #### 4 [id number] #### [facility] [address] [place] [address] Dr. Fadi Meza Performed by: Comment Normal [facility] Comment on above: Result Comment: [place], Panel Machine Operator (ASCP) Performed at: WB Performed By: #### 4 [id number] #### [facility] [address] [place] [address] Dr. Fadi Meza Specimen adequacy: Comment Normal [facility] Comment on above: Result Comment: Sati sfactory for evaluation. Endocervical and/or squamous metaplastic cells (endocervical component) are present. Performed at: WB Performed By: #### 4 [id number] #### [facility] [address] [place] [address] Dr. Fadi Meza CHLAMYDIA/GONOCOCCUS TALAT (SW AB/URINE/PAPon 11-15-2022 Chlamydia trachomatis, TALAT Negative Normal Negative [facility] Comment on above: Performed By: #### C T/NGNA #### [facility] [address] [place] [address] Dr. Fadi Meza Neisseria gonorrhoeae, TALAT Negative Normal Negative [facility] Comment on above: Performed By: #### C T/NGNA #### [facility] [address] [place] [address] Dr. Fadi Meza VAGINITIS/VAGINOSIS DNA PROB Kel 11-14-2022 Shannon species Negative Normal Negative [facility] Comment on above: Performed By: #### V AGINT #### [facility] [address] [place] [address] Dr. Fadi Meza Gardnerella vaginalis Negative Normal Negative [facility] Comment on above: Performed By: #### V AGINT #### [facility] [address] [place] [address] Dr. Fadi Meza Trichomonas vaginalis Negative Normal Negative [facility] Comment on above: Performed By: #### V AGINT #### [facility] [address] [place] [address] Dr. Fadi Meza Covid-19 PCR (CVDTBH)on SARS-CoV-2 (COVID-19) RNA TALAT+probe Ql (Unsp spec) Not detected Normal NOT DETECTED [facility] Comment on above: Result Comment: This test is not yet approved or cleared by the [place] FDA. When there are no FDA-approved or cleared tests available, and other criteria are met, FDA can make tests available under an emergency access mechanism called an Emergency Use Authorization (EUA). The EUA for this test is supported by the Microcomputer Support Specialist of Health and Human Service's (HHS's) declaration [...] SARS-CoV-2. Performed By: #### C VDTBH #### [facility] [address] [place] [address] Dr. Fadi Meza US PREG TVon 11-12-2022 [...] MANUEL VEGA Date: 2022-11-12 16:44 Normal [facility] CULTURE URINEon 09-01-2022 CULTURE URINE Culture Observations: LIGHT GROWTH OF MIXED GENITAL SIRIA. NO POTENTIAL PATHOGENS SEEN. Normal [facility] Comment on above: Performed By: #### U RCX #### [facility] [address] [place] [address] Dr. Fadi Meza UA RANDOMon 09-01-2022 Bilirubin Ql (U) Negative Normal NEGATIVE [facility] Comment on above: Performed By: #### U A #### [facility] [address] [place] [address] Dr. Fadi Meza Clarity (U) CLEAR Normal CLEAR [facility] Comment on above: Performed By: #### U A #### [facility] [address] [place] [address] Dr. Fadi Meza Color (U) YELLOW Normal YELLOW [facility] Comment on above: Performed By: #### U A #### [facility] [address] [place] [address] Dr. Fadi Meza Glucose Ql (U) Negative Normal NEGATIVE [facility] Comment on above: Performed By: #### U A #### [facility] [address] [place] [address] Dr. Fadi Meza Hemoglobin Ql (U) Negative Normal NEGATIVE [facility] Comment on above: Performed By: #### U A #### [facility] [address] [place] [address] Dr. Fadi Meza Ketones Ql (U) Negative Normal NEGATIVE [facility] Comment on above: Performed By: #### U A #### [facility] [address] [place] [address] Dr. Fadi Meza LEUKOCYTES Negative Normal NEGATIVE [facility] Comment on above: Performed By: #### U A #### [facility] [address] [place] [address] Dr. Fadi Meza Nitrite Ql (U) Negative Normal NEGATIVE [facility] Comment on above: Performed By: #### U A #### [facility] [address] [place] [address] Dr. Fadi Meza pH (U) 6.0 [pH] Normal 5-9 [facility] Comment on above: Performed By: #### U A #### [facility] [address] [place] [address] Dr. Fadi Meza SPEC GRAVITY 1.025 Normal 1.005-<=1.025 [facility] Comment on above: Performed By: #### U A #### [facility] [address] [place] [address] Dr. Fadi Meza UA PROTEIN Negative Normal NEGATIVE/ TRACE [facility] Comment on above: Performed By: #### U A #### [facility] [address] [place] [address] Dr. Fadi Meza Urobilinogen Qn (U) 0.2 {Shan'U}/dL Normal 0.2 - 1. 0 [facility] Comment on above: Performed By: #### U A #### [facility] [address] [place] [address] Dr. Fadi Meza CULTURE URINEon 08-02-2022 CULTURE [...] Trimethoprim/Sulfame thoxazole >=320 R F Normal [facility] Comment on above: Performed By: #### C VDTB #### [facility] [address] [address] [address] Fadi Meza UTI (P4 Labs)on 07-05-2022 UTI Report Diagnosis Info Invalid Interpretation Code [facility] Comment on above: Result Comment: Osmani estradamatthew [...] on: 07/04/2022 23:05:19 Performed By: #### 2 [id number] ####[facility] [id number] [place] [address] UTI ( Labs)on 07-03-2022 UTI Method of Extraction Voided Normal [facility] Comment on above: Performed By: #### 2 [id number] ####[facility] [id number] [place] [address] UTI Number of Jars 1 Invalid Interpretation Code [facility] Comment on above: Performed By: #### 2 [id number] ####[facility] [id number] [place] [address] UTI Specimen Urine Normal [facility] Comment on above: Performed By: #### 2 [id number] ####[facility] [id number] [place] [address] UTI Type of Service Global Normal [facility] Comment on above: Performed By: #### 2 [id number] ####[facility] [id number] [place] [address] Urology Office/Clinic Noteon 06-27-2022 Urology Office/Clinic Note [...] Low estrogen (more content not included)... Normal [facility] Comment on above: Result Comment: Elec tronically Signed By: Jalen Robledo\.br\Date and Time Signed: 06/27/22 00:01 EDT Ambulatory Visit Summaryon 0 06-25-2022 Ambulatory Visit Summary JESSA CHATMAN :1985 Visit Date:06/25/2022 Ambulatory Visit Instructions Your Diagnosis Recurrent UTI Bilateral kidney stones Tests Performed Urnls Dip Stick Auto w/o Microscopy POC 55032 Your Care Team Attending Physician - Jalen [...] Urnls Dip Stick Auto w/o Microscopy POC 47336 (06/25/2022) Bilirubin Urine Dipstick - 1+ Small Blood Urine Dipstick - 3+ Large Glucose Urine Dipstick - Negative Ketones Urine Dipstick - Trace - 5 mg/dl Leukocytes Urine Dipstick - Trace Nitrite Urine Dipstick - Negative Protein Urine Dipstick - 2+ (100 mg/dl) Specific [place] Urine Dipstick - 1.025 Urine Appearance Urine [...] to exami (more content not included)... Normal [facility] Patient Educationon 06-25-20 Patient Education Obstetrics and [...] this condition includes: ? Antibiotic medicine. ? Fjrl-ihq-tsvxkzw medicines to treat discomfort. ? Drinking enough [...] these instructions at home: Medicines ? Take zlcn-iio-efqhcjt and prescription medicines only as told by [...] This in (more content not included)... Normal [facility] Coding Summary.on 04-23-2022 Coding Summary. CD:[id number] Gh0bWw+PGhlYWQ+PE1FV LVqZ14sqYNniL6XU3vYY O5HTYHMFURQFD1MKC3wv RB6LMjeR6QlosJk CsaykSNoJV25IIu6STL8 zFehGPiqdR8tvPXqR9f5 WzSvMF21bF63CLgxFORg AtG1QsEncslniWBv I5twUyUsfMSfBzt+PHRh YmxlIHdpZHRoPScxMDAl McJuxRqrOY0uUc9gHIFr LWNvbGxhcHNlOiBj n4dfFVZdUAjgWP4hiKmd X7AzpPK4XJDbx3t0Dq70 dHI+XECsBXQ6cXmgHPls k085LvRpb7koJNI3 tYMmSZvrUUY9P33ot7E3 XCZsEVOoMRJ8lQJ3wO0z kKzaefuvU3SfyPJhZgT3 GBM4yBQunB7egQtl jpqjaH3bXrx+Q33EHP1I AKQKFQ4BStn2S2YoItwy dHI+YK97OCIjTL78eNPv tVJoh9yshIf5WfFq GQQlKRG8dRhgRNscn5Qt ZPWcM09vyXEmw4T9AOOu rNedjZPxEgQamQH7hW7k IKookxyvg2ietjql Zjbmi1incm94bI05F34f OBqwQAZzWLZ5PTIrVUCb zJetcn7wsK6dTk8+IDxj b0lvs0aivZl5CzNx OWNjqmDzsNyoTDV7u1Gy Mx95U5JhsOiwm4AtNfx8 li35eGNjl0M5oWF8PKhc EPDdsR5aZHzbYfI1 IRUlUqAscD09gNJkOPjf Ee8dcYmtiUnrER8rYBJb afcjHEDujY8xNASbnMFa jStdXH1aQZRqxqyh v162VqRvZHG1IJQdzPQa Y0UzfH4kOqEwQLXsRGKj E6BphFEsIPsuN209TRjk RuR3VEFhidChI7Ji ZWFpsWcfXxI0x3B1Bk0E i9BliawwWUA5DDhtWUF9 UtI5XhXyWqA4E6TcGqy4 RUZkrGamND0gC7Oq IMUcxgbcanbcdKB4NVGu GPQhyE68bQWxAVdfRq8z i7T5v705JQBnKXJfnM48 Vx0gaTvdBBNogXLI fT9bokyas7yopojsQxPq PCYjDAz0SEl0IZTzhDqo UcTqRIU7PeG4LNT1tRDk gR9asXnvudvwfG1r Oyc+T91lyN2oIFG5HEQ1 miqkTIMrzaUpKB75XN03 S6NvQeqobXEdmOK+PGRp dkOqcVgqKX5rAvXq h6akb7IoFRljO3UnBKRx RRdnWzh9NYAdNHB3jVK3 qE1bGYPlKTwjz7D2cXD5 G1JidkWnak5ch8qi LRZsINvuH74isJRao0F9 PLSifRI6PJVpfBmiNjVr bQ75Dva+VFCwkPrxc9Vv Bwguh5bka2nhqBh3 IjMwJSIgdmFsaWduPSJ0 i0WeFs97Q79wTTapMLOb CDHpPDDsNTTzbYlblp2j wK6zIx6+PGNvbCB3 eZR0fL4dYAGlBjP7OWfy H402RiWmoEPcKykkw4qz x3qnbVw2PwJdYRNhbrRr mFpxRMB4s6BoPl39 Z25wJOhvFRQpYQEoBRTw OBRfrVhodz7gsL9pOa0+ ZJ6vq3keoe18eX21zNG+ CWNfQLS8oWwoAAqf BVOfkQ0dTVzwWmV6LSIi YwLsvN43gDGhHDrbGg8p yQrmjGybHK5sVCJmyuxp l128MqVyi5dhJIRe hKMsLZxiUBT8U71bl5K6 ISQtBEPvNNX5nFR4rT9a bGlnbjogbGVmdDsgdmVy lUhlNHixBTtsQ011 IHRvcDsnPlBhdGllbnQg EgMwKMq9L7GiMsz5FVIs aTbkQK0odGUfSFuaHj7p oNrgtHxoYX6bMPFi dgumt515UoWor4bsKCGj iCPwKHevOEX7N29tx7T1 LWLrCPBwSPG7fRR0jS8g bGlnbjogbGVmdDsg slOqoJddSTstCMooI772 IHRvcDsnPkJpcnRoIERh rRO2QA84JP08wYRdn8A7 rSR6P4DePWWeidgp wrshoIL7WTEiUDXouI36 Oz9myOthQn1sZOZdXTA7 BGFddXAnZ8ExaV2iDtXt WVCnARSjF9CieTJe WAxeB136RUliLyR8IKMw akGdZ7SuWVIttKydLxK8 l4B6Ej2GK8G5QM47GQ50 dRXnl2M8bMP8G4Km YUImuotwddjxcCQ4QMGk ZKPgvE52Fq1zeQnqQh0h KVIrFJE7LJTkqCYsE6Cj eS4dWcHoWTTvIXEe S4OxeJHnGDnhE395YPfe YrY3FHYgwqKgG8PrUDDv oKlgZuJ0t8P4Vv5BVLh0 BN34SG41wFFma0A7 kLR9B2BvVXPjjjjupsrj cUL5NVEqHOQrlW49Dm5w gYroWx3zDPZfADL4BDMv hHGiS9ZecJ2fCbLy NCUuEQIjW7FkeCQxHAox C563DRsnFqZ3APIlumDl H0RaBODisSraFrL6d3D3 Ez5GHAFiSH10PXF4 pNS5PE59PP37C5JsZhre dGFibGU+PHRhYmxlIHdp ZHRoPScxMDAlJyBzdHls SK8vCc8rRMJrVLJs lTqrkMCoSiQkb6atJYZl ZPkmAP6lxKrsB1NjxOF4 GUVlj6s2Sm34Q29lF3Yi dXA+GJOjfLC5fII3 xT1sQoBfIrQ4QRcxL823 YiCbpJTdYnilx1att8vw pEk8VlJ9MVWhpcIsySvi HLP6d9JkVe28T18o IHdpZHRoPSIxNSUiIHZh hPvxwb6yyB5yHg8+PGNv kGN1yLS8oS7bThDtJrD0 HHnrX319LbGbzREe Mxtqh1adc6xupLi1MeRa KZYvjbYbkScxYER9q2Aj Hl75K2WalAwkr0BgBze0 vk02mETdb6B0kCH9 Y9XsUQHnscuzfGZqwNwb HF6kAYIutgmyWEDanO3n WEZuO6s8RiNjUfG4DGrm Q5QtloC8GTRfuOXu OCmiCVK2O48uf6A7PPEg KHNiYVR7lLC8aP3epDgj bjogbGVmdDsgdmVydGlj ESigYOuuH134ESXr oLlxNVBdoN5iZBQynHUo wBfePX6fEUMsibypFw2R OAIFLJUBOJ1UFDlsrHB+ ECFnHLD1eOjnHWty YARrmI6bUYKaY8s1NaRj VdP9HVrpS1RcCMVquwum Ik60aT6bRiZbFmA0QScy U4KjvhW1UPYktQOd OTqxLEI0W08zr1D0UDAm QTZuWWD5vVB8gH0xsNky bjogbGVmdDsgdmVydGlj SPgrLWydG186PMPw nPfsGtX7RlU0UvS3GMN0 K3SiOhe4EURgvHbjUQ5d bIQiDAciFh4wqAoqrWpa UH6rTGAynumeXUZa rA8nKPByeEZnaKycNC5u QVRlaxlpn914RhKeNGJ1 ICJnuMXlM0JlvZ4tIlIl CUErBYWzG6UxsIGz ZTzkE496GIkxYhR1YMEu yvQmX1SoIZWooTtmJtB3 i1A4Wq6mGEKBFVXlrren dGQ+GPDmZSB5nZke KHjxWHGrkO3dNGEuW6p7 YnYwVqD1DVdoL8NbNUCv kodzOs01qL6fBiKtGqI7 FAkdP1IcwxM2PUBb eOUgLZjpYBN8W92xo9W8 MWKiFKOrUQW6aGD3jM6k bGlnbjogbGVmdDsgdmVy rBhoGXdiWKvbS417 IHRvcDsnPkZlbWFsZTwv dGQ+AGQvZZM3eSgwEBca IIUqjE9aXYBnF9f4MgMd VkY8MLwcN8EiZPXh wkurBx11kI9zUjWbDuQ5 MKhgA9IqucP4KLBbqEPc VOzqKCW3P45rg2D1DALf XTPjPXO7wTR5wK3h bGlnbjogbGVmdDsgdmVy vOwhVQrwIXbmP000RHKy bPcbCmixMlZMds3hSK9i ZjwvdGQ+JL70iz95 C2FhQpuaVrf7VAFrNGG7 wCP8kE3fRLSdEKbss0V4 aZQ7I0DxljCyoe7qd1pb PKToFBkjV12yuGJc o8Z0JUHwaHZ4UJApwHqm SlRidG42Lgy+PGNvbGdy c3DuRbgst3tss2zihVt8 IjMwJSIgdmFsaWdu NFX8j6NhDu75Y10rXBwk ZHRoPSIzMCUiIHZhbGln dl6cbX1zFx9+PGNvbCB3 yAF5eH7lMdVjTcS7 AWytN877FxTjjZEwJeqe d2jqn1mukOf7JxSbWJHy coDdrUnwCAY7l4IwLg50 B1WiaGixz5JaHla9 ag33fJEzl1A7lUJ0P3Yn BUQmgicodHDvzHfsGO7c FYKozdyxGBUooX4xWIFu U2b3BrUeUsE7KRss G7RkenZ8WMAvyPEmHRRd vSWQbK7ugynam9mgbzvk EvQlOKFmDZe8HQz2NQNk zDbhXbPnNTE9PuT5 IMW7eCWjcP5gyZpamrmd yA2nNdr+SWq1a6axwTUw BK1riTB0EJ04YL30wNIg s2O1aYN6I1XtFSGv bvmkifmibOR7LFAlWBTe lB33Wt1iaTdzPo0cNTMw XRV7EHSbiJKtT3LmlS6h RjVaXHQcUEUkM1Pt pEWjFBebQ652DAyvCnS3 NYOdbfPaP2LhBOWexNmw OaR9p1S0Ic6QMU59UB04 UN35aOIvu5G6qYC7 X9ToQABrfsnjxfnekSL3 YQNgUPThiK38Ux3dgAgv Zx0aAMVjZJI4NKYxiFZz C6SlyS9cIpHpFRXr BKVdB6SqzPXfHYwlK894 OGwiDmA4FAVecvAsI2Be YUCdzXjsJyG3a6P2Kg8Y Ni39AU42QG42nLNw n4F4uAU3S1FbOVBwxlrm fzvxcTB5JVFtIABitZ71 Sg1xrAgjZb3fVHXaOIP6 TXMgtYGjV0PbjM1a WcJaNFYqIGRgV1SduZKk PAlaO743VOqxOqF0EAGh uoZaB1GkIFPzzVkkLpM8 y6K6Ng1RWEqkzba6 F5PsMbpgmWW+AW38XKCa IZ64cUOrjOAom2ydjTl3 MhJnKMRsFNB8oXsqCHnk y1HmJDLuY36dlFQz c2U6 (more content not included)... [facility] 04-18-2022 Reminders - From: Lupis Turner To: EU - Clinical; Sent: 04/15/2022 15:02:18 EDT Show up: 04/18/2022 08:00:00 EDT Subject: Urine culture Reminder/Recall Urine culture done on 04/15/22 addressed by ANNITA Smalls [facility] C Urineon 04-17-2022 Bacteria identified Cx Nom [...] Locations R1: This test was performed at: [facility], [address] [place] [address], [address] , , [facility] Comment on above: Performed By: #### 2 [id number] ####[place] [address] Coding Summary.on 03-13-2022 Coding Summary. CD:[id number] Gh0bWw+PGhlYWQ+PE1FV THeF83vxXFsnF8OS3jHB S8RSEWLPRGSTX5QSV9ji WX8QUshI8UpknWj InzewFZyJM96HNh2OFC1 cBliWRapbL0waUUdN8h8 QtTcVK09bG88TKotMCNm LgZ8HmAgamwptPYs X1znEsHkaICaLtv+PHRh YmxlIHdpZHRoPScxMDAl HvNucDqnDA6fMh0gXLYb LWNvbGxhcHNlOiBj b6wwUXHxJXjbZI6neXfa A1OymSW8ZZItg2z7Hd59 dHI+RGBqGLK3tQnvNGuq s458SlYov5trQSP2 xZNcOHcoEFW5V75tb8W5 TFMzEPZaUHY3bUR3gD9b hUqddvppN6GlfMJuOzU3 HVV6gKVixA0hvOou pwbhnV7xZlm+V35JJO3V UNDSKX4PPdx3H0XzEavc dHI+FT05TTBuOK33yTRs kAShz6esnTg2LwZw UXVjCBS9cYqnGGngx7Ka KFElG87bxUNkp9G9CRQg jDbwsXWvOiCmoRG2lK2w IEjibigof8wesggj Xdqvx4ulei39qM47C81i DJgdINRpFXG0HIOuNEKq qBiwmr4uyG7tSm7+IDxj a0gxz0numRj8BiWo ATInlhZymMnoIBO6c1Ch Tq52J2ZvlUxqk0GfLkd2 ft47dHNhb6E4uND8EMgc WYVjpD0pLGtmZxW3 KNSxFyQxmI51aUYfHGgc So5vjOxlfQghIO6pVYSi tlqdTXJspC5kXMAeyZHl xUbiON1mUXCovxus z390FaCeCDQ7FZSflSXr M8XgbV1pOaMyEEQmWERf H6OxoZJqNCzlD569WNzv SqI9ZTOseiNrI4An ATSmpYdwIxJ5a5K8Ej3C z4MzbfhvQFO1ORvfEIF5 LcA6LnIqWbO6F2QfWaq3 UNFovMbeGP2zO5Fo CHQfbebvtwywkVT3HYKz TGJrmK30lVLjBGvxZa6q x8Z4w683VLLwMCEaaD39 Cf8bkHyvIZKdsGXY jY3iazqgu7nofiwwJbRx CJPkWIl7MUn0UMVugHcl KnXqOPH7EzJ9XKT6eCPk zP3lbAebtnxkfL3k Oyc+W73exP0nHOI7DXJ4 dfpvKCWjcdHyQI93LQ52 N8IrQwbbuUAjgIQ+PGRp ejDmhFfxVY8qTuYz u4wij4DrDBrvI0TqZABv RPwsWhr8QOQsHFV8sXQ6 zI4zIXMiTKpdb6Y1lKH9 I8BqfcKhax6jv2ci WNBdWAukD59mcQJzm7M0 LTNlrRU1EPSqgIbxHkLp gM20Pdx+QELgjHnyx0By Ftptj4waa0wdyVo6 IjMwJSIgdmFsaWduPSJ0 z1YzKw40C80jLJyfJSYb WVKtLIViBBDdvGvpto8u vO8gKc8+PGNvbCB3 eDI4fJ2iWKKsHuS8IKve N502UuSbfTZyRwzzo9px s8qirQw2DiJdHEHojlJm yCvaRCK0g3ClEy22 K94hCGsmDKScVVUrBSBj VMTzaRixop9auI1fBj4+ RA6pm4vxqw57hE77aPS+ TFKtLZQ6aBwcYAwq HYFaxM9gDWuxBqK1UVPw BiBgeJ59iIHbMGkwUs6d bIaljAklVG4zSBTfgdla n077LwKtd6hzJTBa rJXqZOcbQDF9W93uu1M4 LBPhOGOpDHU7dDB8iF1r bGlnbjogbGVmdDsgdmVy cBrjXMviZPuqQ789 IHRvcDsnPlBhdGllbnQg IbYcQRm5K8YsMni9CHZm xFlnFB2seXWaOLszZg9f rRaheVblXP8tFMOk odhie958KyThr5knVGAe qJTlDEyyUGZ8N04vp4E0 HFJlTMYfPDN9rYS3eS5t bGlnbjogbGVmdDsg ywIpoZjwNQnfWXnlN516 IHRvcDsnPkJpcnRoIERh mCL9PW14AU81iJGlg8H2 oSL9C5NtEQKbiwvw fvrpcSA0WIOmOSZcdY15 Uk7caGklXo3fCHNlQWN5 SUNohBXmX3ZgdC2yDhQx CZPhUJKrA6SwhPSx COvuV194FAywKzR7NGOs peTgE9NpHSQakKlcWuW4 k7T3Lo4WP8F4II24FP83 jRKez4C9iYR2M0Gq XVDebeovirzguXL9OUEv VHPxlU03Bu9lgMarGm4z SLOaOYR5XAReeJBdI3Dh yR5tMpPdRBAiNTIf M9CeiAViZZkrU783WGsx JuU7VPGbivFvL5PgOHLh sGrpVqO0j9R6Nh3UHBe1 FP55YG23jLPxz2B0 vUT2L4EaWFRukuoymnbg qKA3XVKaKKHmuC98Hn6j jZghVq4eMKYaAMM7KNIp lVUfG8DivL7pGeUb VNLxQEHdC9KwmILlIYta M782AYwnFpZ4TBFnueYp K9UnFRFwfKrwWiC9e0H6 Nu9OVHRjHX14IVA0 nMR5AA97MV63P1QgJhzr dGFibGU+PHRhYmxlIHdp ZHRoPScxMDAlJyBzdHls XR0oKu0vPJOfUXIf vWngsDMcMiFum2sqBSNc IBijRC5rySkbY0CrwTH0 BYVas5o4Ws51Q77yG4Iq dXA+GFRdkHF7nEV2 aJ4bAdXgVnZ1HKbiT601 BoDnzMDzMuagp9gax5bf nFl3VlM9LXEazsAfzOsf VNZ6u7YhRh28X17s IHdpZHRoPSIxNSUiIHZh rDthqf3rvN6qEq9+PGNv dOC0cLJ1gA1dHrAzQzC4 TAdvO682XwXosZKo Nkvgc1tct1afoMw1NsUm MQNmnqSwoKogOWZ4y6Pe Db77I7OxhGviq3AwZca0 sk84uOTou8Z2nER5 I2VeQPWsakawnTOvpZow KG5nRDYydodmRMMkoB4o KXTnB5u4MvZuHxU9PKtg I1HvnqB4AZPgbSLo UDyoFNI5L95zn6P9MUMm LOVePCA1iBZ7oW6onOwz bjogbGVmdDsgdmVydGlj DLviMVyrH603CQJn nNnvHZJhpF0qYXFqnJDx aBomCT3sIYJfkxavZm9C IODEGZLTWA9LALuejVF+ BCWdTNJ2mIxxHPxr KSMfkO0wRXExT8f5UpKd RuP5DOzqM3WjIPPyznqz Bi34aV0bZkZqSwT2UZoz H4IwreR7MCXfgXIj HAssEDS1Z91qx7C3SZVe BDPcRHA8pVO4aB9ohBvl bjogbGVmdDsgdmVydGlj AHduURtjD391PYRe uMfoJoL1LzI3PuT5BCP8 U2SwCqd6OVErkAtyKN9m aNRbNUawIl9eoXxxkYbs IH4fFGYkuepiCHXr lP7rLESwiWVtyZbhDW4r GRUmnlbyg191LyMrXXF7 QKLhxOAaM2YjyM6vVlFd EFQcDHOjM8UrjGQl FDhyJ556CFyxHvZ0LQJi qwNdR5PfQIMhsJzzAsH6 t7U1Fq6mBKJTSBGwgipf dGQ+FZCgUXQ5cKjs LOfsCONurX3eJDTaO1d8 OrDtKrK9BVyrR6ItTNOy rumiYi99iP0hFvCpNmK8 HAbkC8TankA2DVEu cOYtPUyiIEO9S88yq1P9 NWCqSISmDIL0tHG5tL7q bGlnbjogbGVmdDsgdmVy bXdiHSisBXpyF002 IHRvcDsnPkZlbWFsZTwv dGQ+EXJkAVP3kMkeCZjc VZSsnK9kSWEfS8r2TrKo HkJ6PCekI4OoMLNl pxlmIh15dQ4vKgVqKhR5 XBoaK2MjsnR6GOQriUQm QPnqWWI4T13rm3G5XEYf PIDyRIK4pBO9eT1f bGlnbjogbGVmdDsgdmVy gFxwSQnrVSilB807ZNDv gZkeMywlLrTPnz2eQH6d ZjwvdGQ+HV20xr04 V1GmInpfOsp1QOBpSHO2 sWQ6iW2lFRDqVQojk8N2 nRT2D7MzmvNbub7lx0fr VQMgAMhqN08piRPq q6O2IWHfiGS9DKImoIyf FpIjvJ18Eab+PGNvbGdy y2PkVmwaw2opp5lbzZs6 IjMwJSIgdmFsaWdu GLD5v9FjXp79Y36rYXbo ZHRoPSIzMCUiIHZhbGln dk1nxN0lFr4+PGNvbCB3 fXG8xX6lMnTlPdQ3 AFxcE647ZgSzyTBjXyju b3vjn5akpEp2LaSiKPWf vkGuaGwiCWW9z5FuLk91 X6RafKydf7NfElu8 md41sFFrm7D2cKY6H6Jo WBQwopjaxIXcwOtfGP9w YPFwpqugWAIrnY9mXPHb G4b9DbMkWpU1PBna S4UiqaC9KVHyxHKoXHUd mCWHlZ6eqggsc8gdyyge YsNfPRHxHKv4WLq1SHXy bHehYzHqWKR0BgS3 VZH4fIBkfY6hoBvvkxxt nV8xGri+DXz9m7yqsLIo VY0hlCC7PN69IK81pUMn p3D3tXR5Y0VlXEXx pdtkcdrxjYU7IPOuZEUo qS64Vt2jyLmsRt7fBSRc ISQ2KWMqaQQaM8VwqX2d DvNjGFFrPXGiU6Ys zFMdWCmcW804PXrvInR3 FCLcblGcS7BqJRLktTsu BjR0m3R6Hg3OET74PS85 EE67pAMqt5M5hXH5 O9PtDXQttslvrvpwdJZ3 RBSiHWYnqU84Yr6fuIpd Pt0wSMCgIXE0DELxvIEy L3GvdH6cYkPeAQHw FBPeM3AfyRPlOQelL067 ZGctQkA3FNAqkcWvF7Cd UGLqjModEfU3y3N7Nu8X Um31BB87KN63gRXc k2W7wEJ1V1XjXUSjrorx qatccPK3YJLnFCJuwV64 Jj2wvAnnLq6zNMElLSN8 BSJgpJCyW0YscM1e VbSsEENjMCPrN3MxgKHy PCeuJ858IPodMxQ1WRNh frUxD1SfCYDvnWwfZdV5 e7O2Lu6ULYtbilf5 E8DjHphwpVX+IL91WUMi BP61iAGktVLbf9gaaFp7 XxCnSCWoHIS3dYeqABsh t0XuPCLhM12opDDv c2U6 (more content not included)... Normal [facility] C Urineon 03-08-2022 Bacteria identified Cx Nom [...] Locations R1: This test was performed at: [facility], [address] [place] [address], [address]- , , [facility] Comment on above: Performed By: #### 2 [id number] ####[facility] [address] [place] [address] Reminderson 03-06-2022 Reminders - From: Lupis Turner To: EU - Clinical; Sent: 03/06/2022 14:52:59 EDT Show up: 03/09/2022 14:52:00 EDT Subject: UA micro, CX Reminder/Recall UA micro/culture done on 03/06/22 Normal [facility] URINALYSISOrdered By: Nazario doyle on 03-06-2022 Bacteria [...] PM) Normal Negative [facility] UA Auto SS [place].plasma/Lithiu m.RBC (Bld) [Mass ratio] 0-3 /HPF Normal [...] [Mass/Vol] Negative (03/06/22 2:52 PM) Normal Negative [facility] UA Auto SS Specific gravity (U) [Rel density] 1.015 *NA* (03/06/22 2:52 PM) Invalid Interpretation Code 1.005 - 1.030 [facility] UA Auto SS UA Spec Desc Random Urine (03/06/22 2:52 PM) Normal [facility] UA Auto SS Urobilinogen Qn (U) 0.7862881 {Shan'U}/dL Normal 0.0 - 1.0 EU/dL [facility] UA Auto SS WBC Auto Ql (U) Negative (03/06/22 2:52 PM) Normal Negative [facility] UA Auto SS WBC LM.HPF (Urine sed) [#/Area] 6-15 /HPF Invalid Interpretation Code 0-5/HPF [facility] UA Auto SS Urinalysison 03-06-2022 Bacteria LM Ql (Urine sed) 2+ /HPF Abnormal Trace [facility] Comment on above: Performed By: #### 1 [id number] ####[facility] [address] [place] [address] Bilirubin Ql (U) Negative Normal Negative [facility] Comment on above: Performed By: #### 1 [id number] ####[facility] [address] [place] [address] Clarity (U) SL CLOUDY Abnormal Clear [facility] Comment on above: Performed By: #### 1 [id number] ####[facility] [address] [place] [address] Color (U) YELLOW Normal Yellow [facility] Comment on above: Performed By: #### 1 [id number] ####[facility] [address] [place] [address] Epithelial cells.squamous LM.HPF (Urine sed) [#/Area] 3-4 Normal 0-2 [facility] Comment on above: Performed By: #### 1 [id number] ####[facility] [address] [place] [address] Glucose Test strip (U) [Mass/Vol] Negative Normal Negative [facility] Comment on above: Performed By: #### 1 [id number] ####[address] [address] Hemoglobin Ql (U) Negative Normal Negative [facility] Comment on above: Performed By: #### 1 [id number] ####[address] [address] Ketones (U) [Mass/Vol] Negative Normal Negative [facility] Comment on above: Performed By: #### 1 [id number] ####[address] [address] [place].plasma/Lithiu m.RBC (Bld) [Mass ratio] 0-3 Normal 0-3 [facility] Comment on above: Performed By: #### 1 [id number] ####[address] [address] Mucus Ql (Urine sed) TRACE Normal Fish [facility] Comment on above: Performed By: #### 1 [id number] ####[address] [address] Nitrite Ql (U) Negative Normal Negative [facility] Comment on above: Performed By: #### 1 [id number] ####[address] [address] pH (U) 7.5 [pH] Invalid Interpretation Code 5.0-9.0 [facility] Comment on above: Performed By: #### 1 [id number] ####[address] [address] Protein (U) [Mass/Vol] Negative Normal Negative [facility] Comment on above: Performed By: #### 1 [id number] ####[address] [address] Specific gravity (U) [Rel density] 1.015 Invalid Interpretation Code 1.005-1.030 [facility] Comment on above: Performed By: #### 1 [id number] ####[address] [address] Type of Urine collection method Random Urine Normal [facility] Comment on above: Performed By: #### 1 [id number] ####[facility] [address] [place] [address] Urobilinogen Qn (U) 0.2 {Shan'U}/dL Normal 0.0-1.0 [facility] Comment on above: Performed By: #### 1 [id number] ####[facility] [address] [place] [address] WBC Auto Ql (U) Negative Normal Negative [facility] Comment on above: Performed By: #### 1 [id number] ####[facility] [address] [place] [address] WBC LM.HPF (Urine sed) [#/Area] 6-15 Abnormal 0-5 [facility] Comment on above: Performed By: #### 1 [id number] ####[facility] [address] [place] [address] Consent for Procedure/Surger yon 02-26-2022 Consent for Procedure/Surgery [id number] 9#1.00CD:127 Normal [facility] RAD - MISCon 02-26-2022 RAD - MISC [id number] 8#1.00CD:127 Normal [facility] RAD - Ultrasound Reporton RAD - Ultrasound Report [id number] #1.00CD:127 Normal [facility] Ambulatory Visit Summaryon 0 02-25-2022 Ambulatory Visit [...] Andrade Where: [facility] Flo Normal [facility] Patient Educationon 02-26-20 Patient Education Urology Kidney [...] these instructions at home: Medicines ? Take nukg-bon-qpqjvof and prescription medicines only as told by [...] 04/13/2009 Document Revised: 03/13/2020 Document Reviewed: 03/13/2020 [employer] Patient Education ? 2019 [employer] [facility] Urology Office/Clinic Noteon 02-25-2022 Urology Office/Clinic Note [...] urine The Urethra was dilated to: 18-30_ Hungarian with sounds. urethra bled. dry. Removal: Cystoscope [...] [facility] [address] , [place] [address]- Additional Instructions: Patient Education Kidney Stones, Iocm-tl-Pgix Devonte Nickerson personally scribed for Dr. Saez [...] Diagnostic Results Tests Reviewed: Reviewed UA. [facility] Comment on above: Result Comment: Elec tronically Signed By: SHAYNA JENNINGS, Kwadwo R\.br\Date and Time Signed: 02/25/22 15:21 EDT\.br\Electronically Co-Signed By: Devonte Echeverria\.br\Date and Time Co-Signed: 02/25/22 15:19 EDT Pre-Certification Formon Pre-Certification Form [id number] 0#1.00CD:127 [facility] Reminderson 02-10-2022 Reminders - From: Kristyn Echeverria MA To: EU - Clinical; Sent: 02/04/2022 16:03:36 EDT Show up: 02/08/2022 16:03:00 EDT Subject: Urine Culture Reminder/Recall Urine culture Pt is currently . ANNITA addressed [facility] C Urineon 02-07-2022 Bacteria identified Cx [...] Locations R1: This test was performed at: [facility], [address] [place] [address], [address]- , [place], Normal [facility] Comment on above: Performed By: #### 2 [id number] #### [facility] [address] [place] [address] Performed By: #### 2 [id number] ####[facility] [address] [place] [address] Coding Summary.on 02-07-2022 Coding Summary. CD:[id number] Gh0bWw+PGhlYWQ+PE1FV BFuB76qaJBwwL3TB2eZR H9WXTKQVTAJUZ9IAF1vg CD5NJybY6FpkkGq IbtitFEeGL73WMk7CSR1 lAfyEImmlN9szZNvG1a0 EiDhBH13dH98IVzaXQQk YvG5DkLbhtweaLId C3enIaGvzPVpMcl+PHRh YmxlIHdpZHRoPScxMDAl SfSnhMgzEU6lFf7wARCa LWNvbGxhcHNlOiBj c5hhVPLsHIwlLP1syVvl J3BjeQT4GEIfn6c2Lg05 dHI+IBOcSOR7wKfjVXgm b787UkUvs4ohPXS5 lJGuTRzpMPA6Z73kd6D9 SWYpOPPcXBK7yZG7hO6d lWfhgtqkT2OjwKRfTkB4 UAJ3pIGgcI7unPpo wlwltI7rGyu+U20QQW0N TBXAVJ7IKqx5Y6VoUlhj dHI+YY53OSJxZR53uQIv tPXfq8cgjCm0FpOj UOEvELJ3hCdgKEldo5Rg ZBKjK79huOTau9S6EXUf bHnskNNgDaMckWF0wP5q DNycmfdii7muilhw Afknr7gsgf52yF81B22q UKquXUIvDED7FBVbRGUc lHpuqk4dmK4eMz1+IDxj n8ail8pshLo2ZaGs BMWnpvFheNncPXW1m9Gk Pu34G8AkcKnnd0VfJal2 dz11uEYtk1S4lUB5URyd XWQaqE3bKHjyRvI6 ETTvGuRojE07nQCwXMxa Fy2lvVgkrEnzMG1xSAQu sofeHFUzwW2dEKGmuDVi dObxCB3dUVQgmbuk a172VyEuZMY8SMXnpPMf B2BqoW3aHcHtFGCjWSUx F1NyiWEdLMxnW377KZij AdW7CKAkdoDmG9Hx AHRhnLimKiO9i0V1Fb5R m5NactefDLV0SMjdFXDf PbTtZcEgThT4D2EsBrt2 AHPcqJvrJQ3cI4Gq PVDcxewvixtivVJ9BEVj FWTjzJ17nSPoTSyyUp8b o8N9e511NQEzDMOlbT16 Dg3cbDefJOPecUVO zN0ivopwl7zwxdgzBmWq HERfTUe5LKy1KVRhjMsd FfAjZHE0DeI7NPR5iBNe nA9uiXrmlkuxzV0s Oyc+V90lkI6nPMO6XLW7 betyTHFkbiVbYR11YX13 R5FqNitecFQomJF+PGRp fzZewJpiTM2rXrQh c3lvm8YmUVnoJ8FlGYFm FHcnMrw8ZXHgQID9yNM7 vZ7wAAYsLSqmq2I0iCP0 A2KwnqWzhw6xp7qb FGBcDYkrO20enNKgy9V6 ISApuUI1ZKAjpMsgEhDe vO84Kec+EWLnkIhgx0Bq Oihei0ubd7jxbTy0 IjMwJSIgdmFsaWduPSJ0 g5GeWk89U37lRLyvSCLy ZTHhMWKzLUVqoNtbyq2k yD4wAg6+PGNvbCB3 aPG8dN7uDCAoNlD9NLgb L266RiOtuBNyZynmz8ct f7ycgKf6RgAlLBUokgKq zLfkEAC4n8XwAi09 V03tGHegPOVuORLtVUWf AFSpdSzcys6rbP3xQk5+ HK0fn0usoy57xL93zVH+ IMKdDIC0jDhoOUtp TBDuxP4lNMjxInB8EVGg WfAwtN42dROyBYyoPs7d yIfwhUyjYV7oUIFbfven d369GrVii6faKTGz dTLdMOzlANA4X54wj5V0 CLMcLNSyJWK3tAD1jX8o bGlnbjogbGVmdDsgdmVy iGevPZncQVrbE679 IHRvcDsnPlBhdGllbnQg KvYxHWv0Q6IwMxe3WQCx qJnvZX8kmIOsHHasVh8t qGpjqGbrMC5qUIOd jilta514JbMpd3jiFSLg wEZwZWuuIHW0V16ji7I0 QRReUJKzFMY7oPX5jQ8b bGlnbjogbGVmdDsg yiCciPyuNAlgPAuiM300 IHRvcDsnPkJpcnRoIERh fBE1UT26LC96dWMhl2E0 iFN6P9HdTWPrpcwp ckzkfJI2KMDsRYExuV63 Ef6ziWgmIr5qBGUtMIN9 IBLnqRMzW4FqaM4zSdYk GIWjUGXiR3McwXQv MOjyM770KLacTqK2LVZs jyUwZ4RvGXUtaSrjWdJ8 u3E6Ep4AL0D8SR56PC42 pVQpa4M0mNY9M5Rq BHQhezdxlvreuGW9ANZd PYFwtY86Tu9ccJzwXo1h IULkULZ1IPXtsDYpB5Es fY8oVaAaIRNmGYKz A1NqzSEeRJiaA490QJkr HaG8FFJtjoGkC1MmXVUh yRepMfK2g3D1Dx9SCJf0 XH71PO60oRLzv4W1 oQM9K3HzYBJpfkcusgqq xZW2LFWsAXGwfW74Ht5f gZifAy8gVYNzYVY9QCEl vEXnX1GsqO4kAtQd LZBaBHKvQ3ZxlRIkLSly W023VOvcSjB7URGsswCt P8EyGGMonOemSzM8o1X3 Wl7YEDKnFA08XQQ7 kWJ4NK70PU42G0HzJpys dGFibGU+PHRhYmxlIHdp ZHRoPScxMDAlJyBzdHls ID1rNe6fXINgWDSq aXgyqQDcUcWlt7tlBIKj YLqrXU4paTvxG3WddAE9 AKJcy2s1Ga25Z89jR4Is dXA+TSJipMH8tOW3 jD0vCaRuKjN4FVtkI672 HbDqaOWlUerlr2atb2ne lXm2LcQ6CSFkxkLfaCkh KWJ3i2ZnZd55W34e IHdpZHRoPSIxNSUiIHZh dEiare8adM4dCu7+PGNv qWF3dAD2yH3kWnXrLsA5 EHysI267BsDxkKVh Oimor6lfi2vufLj8QkPa QTMjsxObyWcmVVO4g3Le Rl30G5HucWuft6JqZal6 jq58dTQff4P2vQN0 E3CvPIVzmawhcABggBuu PZ8zRUYacjodGWQlmF2g SBOjE5k7AzZgMoI3UOqy E2ApgeC7SINzxGYl JQrhZOF2W91qn1J9VYIg FOVaHTN8tOG6yH8pjXet bjogbGVmdDsgdmVydGlj MVrmRMijN909FLWu eRizYJSfbQ2pEXZdeAQl uXqaZS3jRLDsbrnjFx9V NYOOIZTKKG2GKWfnaNN+ IUCoWPH6rOcdCPxc GYDlgU8jXOUlF1p5EmEr KqQ8IMgsE0XyTRRbpbbf Xd42jS3cGhOlMgC3OTte F0HmswI5FOImuCAi IOnnPLQ6P54jg3P5TIHr RIMyCZS6fWU7xZ2iuUnb bjogbGVmdDsgdmVydGlj DIdvGLhvF688YKYu zQnzGhC0QbN6TxS3JPL7 U1FsPln4GOKhqYbnGP0x qWZaWGroOs0fuDzukTtq VP0mWSIofqwfOCPc yW9fFMZigXQaxTusVL2x BXMyyujnd201EkSbQYI4 YNSswAXhN3EnkC9iZhJq CFDnHSOjJ3GopIEf SFpbH647HDcdMjX5ZFMz tnCrE6ShRLKljFcfVeI2 l7X0Df6zSTBKESQpeszu dGQ+IULgQRH3uVpf CUmvQKIypN0mBHVcC4z2 MdBvUwM2OVaaE4IlEPHf fmidMu40qS9sUwVuAxT0 YXwpB9KxgkL7QAXy iXFhJGhvDNR8Z06ts7I0 URLcXJPpSCY1kPR6vD8p bGlnbjogbGVmdDsgdmVy cAslUYuyBXpxW140 IHRvcDsnPkZlbWFsZTwv dGQ+XBUdGNT4tRtdZCjw CWYkwX5eIOLvS3m1IhFq TiM8OEvzI8KtJOZt tpizVu84kU4tFpDuDeE7 VYdkQ4BrsmP7KYJtgLTp RSysVLS3A61fn3H2ZJIb HENaCVP4jIN2sH9q bGlnbjogbGVmdDsgdmVy fPasDQulKMbmS148AMJi zWawPwkgEhNNkt3mMF4f ZjwvdGQ+JP75qf93 L6OtBlfjTsg6FCDuKVC8 jKY3wP9oAYIkWRksj1A8 nCA2K5CzocQwhl3gs2tf TXVpIWcwG92nqWEw d9W7LUJroCV8NEYxgHbv AsAckH46Hfd+PGNvbGdy l9NoVsmkn0jmo0odbJd5 IjMwJSIgdmFsaWdu CYV0b4HwDc73H76xKCgx ZHRoPSIzMCUiIHZhbGln mj2scR1wFq5+PGNvbCB3 cXX8oO0uAoByQbP1 GEdlR391BqQmhCIeVyij p6zcb5zpbYj6EhDtGUZs bxTflJwuBOA1m2UkPg90 Y1YyyFqtx1QwQsr2 ta85lNJtc9Y8wWH9I1Hk HUEimzburFUttEktCA1f BNDwguxeUPYnuI4bZQFs Q0k5EcVhCbL4HLwk E7UyghH6FJXlePNcVZFt bMDOdN2xazbyz0syupny QpUyTUNgVBw5HMa4BBAh mJiiVaIbQBD3HbL8 AKZ7zOAxmJ5hrFhmihjq tD2dJfy+CMv1h7vesLMm CJ4pkRG7OY97BG50vETa c8K3aTR3Z5BwRKLr vutmonspwJM7FFHbFSFj yB51Fc1saZcnHa1uGOBb GZE1HOTdzPMtF5GdkY4f ReGkIYSqODWvX6Ok uLIkPWvwC250JBieVbK3 SZHgzdGbF9NgJEHtiKzj YnI0w3V8Lk9LAS15DW89 RQ68xNBqv5D3qFE3 S7YuVLGaupodntdphZF5 GDDbWJBjcO10Zt6pnBnt Qq6eUOIkROM8ZNFedKJp H3QhjL0rVkLzTWQu DDPmU9XnpSEaMPhuE185 XEqiEqQ2SRVklvJtS6Ry UZAwmLahDeN9p5L6Zu2B Mq38NB39NV38jRMy m1A6tII7R4OuPJHxweli amtfzFK3AGMnZPFvzA49 Tn0bcVuvWb0uWGSyCZQ5 XFAqgAFmZ8LmzS1d CdZoNNTyKKSaF5ZmzFZc ODssW013MUpxFqQ6IZCn gcBkN7KfDYFbfJcvKnL3 a3S6Lq0VBQodrju9 O1NbVwddsNE+BB47IEVb ZO53sORtfKNjq6kyjYe0 WjIhXISlICR9eCfsIFnm [id number] c2U6 (more content not included)... Normal [facility] US renal BIon 02-07-2022 [place] [address] Ultrasound Report Signed Patient: Jessa Chatman MR#: [id number] 9 : 1985 Acct:[id number] Age/Sex: 36 / F ADM Date: 02/07/22 Loc: Room: Type: [facility] Attending Dr: Saida Abad PA-C Ordering Provider: [...] Mark Stark M.D.02/07/2022 3:24 PM Dictation Location: [facility]-13 Tech: Saida Gilliland Transcribed By: KARI 02/07/22 1524 Dictated By: Mark Stark DO 02/07/22 1522 Signed By: 02/07/22 1524 [facility] XR KUBon 02-07-2022 XR KUB [facility] [place] [address] [place] [address] XRay Report Signed Patient: Jessa Chatman MR#: [id number] 9 : 1985 Acct:[id number] Age/Sex: 36 / F ADM Date: 02/07/22 Loc: Room: Type: [facility] Attending Dr: Saida Abad PA-C Ordering Provider: [...] Mark Stark M.D.02/07/2022 3:13 PM Dictation Location: [facility]-13 Transcribed By: KARI 02/07/22 1513 Dictated By: Mark Stark DO 02/07/22 1512 Signed By: 02/07/22 151 [facility] Patient Educationon 02-05-20 Patient Education Pharmacology [...] Trouble breathi (more content not included)... Normal [facility] Urology Office/Clinic Noteon 02-04-2022 Urology Office/Clinic Note Chief Complaint referred for recurrent UTI. [facility] Staff Jessa is here today as a new patient referred by Hreve [employer]ESSION[employer] for recurrent UTI.Started Cleocin 300mg on 12/24/21 [...] on Cleocin x 7d in Dec per [employer]. pt has not noticed any connection with [...] baths & hot tubs, avoid any scented [employer] products, urinate after sexual activity, etc) PVR [...] E&M of New Patient Moderate 45-59 Min 38663 Urnls Dip Stick Auto w/o Microscopy POC 46293 US Renal XR Abdomen 1 View Orders: [...] Protein Urine Dipstick: Negative (02/04/22 14:41:00) Specific [place] Urine Dipstick: 1.025 (02/04/22 14:41:00) Urine Appearance Urine Dipstick: (more content not included)... Normal [facility] Comment on above: Result Comment: Elec tronically Signed By: SAIDA ABAD PA-C\.br\Date and Time Signed: 02/04/22 16:12 EDT Vital Signs Date Time Vital Sign Value Performing Clinician Facility 06-25-2022 09:14-0400 Blood Pressure Location Jalen Mora [email or web address] 06-25-2022 09:14-0400 Diastolic blood pressure 86 mm[Hg] Jalen Mora [email or web address] 06-25-2022 09:14-0400 Heart rate 77 /min J[facility] Mor[facility] 06-25-2022 09:14-0400 Systolic blood pressure 130 mm[Hg] Jalen Mora [email or web address] 06-18-2022 10:45-0400 Body height 162.56 cm Devin Lam Other [facility] Other 06-18-2022 10:45-0400 Body mass index (BMI) [Ratio] 28.49 kg/m2 Devin Lam Other [facility] Other 06-18-2022 10:45-0400 Body weight 75.3 kg Devin Lam Other [facility] Other 06-18-2022 10:45-0400 Diastolic blood pressure 76 mm[Hg] Devin Lam Other [facility] Other 06-18-2022 10:45-0400 Respiratory rate 16 /min Devin Lam Other [facility] Other 06-18-2022 10:45-0400 SaO2% (BldA) [Mass fraction] 99 % Devin Lam Other [facility] Other 06-18-2022 10:45-0400 Systolic blood pressure 118 mm[Hg] Devin Lam Other [facility] Other 05-13-2022 16:00-0400 Body height 162.56 cm Devin Lam Other [facility] Other 05-13-2022 16:00-0400 Body mass index (BMI) [Ratio] 29.73 kg/m2 Devin Lam Other [facility] Other 05-13-2022 16:00-0400 Body weight 78.56 kg Devin Lam Other [facility] Other 05-13-2022 16:00-0400 Diastolic blood pressure 68 mm[Hg] Devin Lam Other [facility] Other 05-13-2022 16:00-0400 Respiratory rate 16 /min Devin Lam Other [facility] Other 05-13-2022 16:00-0400 SaO2% (BldA) [Mass fraction] 97 % Devin Lam Other [facility] Other 05-13-2022 16:00-0400 Systolic blood pressure 114 mm[Hg] Devin Lam Other [facility] Other 04-16-2022 10:30-0400 Body height 162.56 cm Devin Lam Other [facility] Other 04-16-2022 10:30-0400 Body mass index (BMI) [Ratio] 30.72 kg/m2 Devin Lam Other [facility] Other 04-16-2022 10:30-0400 Body weight 81.19 kg Devin Lam Other [facility] Other 04-16-2022 10:30-0400 Diastolic blood pressure 80 mm[Hg] Devin Lam Other [facility] Other 04-16-2022 10:30-0400 Respiratory rate 16 /min Devin Lam Other [facility] Other 04-16-2022 10:30-0400 SaO2% (BldA) [Mass fraction] 99 % Devin Lam Other [facility] Other 04-16-2022 10:30-0400 Systolic blood pressure 130 mm[Hg] Devin Lam Other [facility] Other Encounters Encounter Date Encounter Type Care Provider Facility Start: 11-16-2023 End: 11-16-2023 ambulatory MOUNA LUIS M Not Available Start: 10-28-2023 End: 10-28-2023 ambulatory MOUNA LUIS M Not Available Start: 10-23-2023 End: 10-23-2023 ambulatory ARACELI MAGALY [facility] Start: 10-08-2023 End: 10-08-2023 ambulatory MOUNA ANGEL Not Available Start: 09-23-2023 End: 09-23-2023 ambulatory MOUNA ANGEL Not Available Start: 04-15-2023 End: 04-15-2023 ambulatory Devin Lam Other [facility] Other Start: 04-15-2023 Telephone encounter Devin Ziggy [facility] Start: 01-19-2023 End: 01-19-2023 ambulatory Devin Lam Other [facility] Other Start: 01-19-2023 Telephone encounter Devin Ziggy [facility] Start: 12-19-2022 End: 01-07-[address] MOUNA ANGEL . Facility:[facility] Start: 12-05-2022 End: 12-06-[address] MOUNA ANGEL . Facility:[facility] Start: 11-19-2022 End: 11-19-[address] MOUNA ANGEL . Facility:[facility] Start: 11-16-2022 Encounter for preprocedural laboratory examination DR MOUNA ANGEL . [facility] Start: 11-13-2022 End: 11-14-[address] MOUNA [...] Dasia Addison [facility] Start: 06-25-2022 End: 06-25-2022 Patient encounter procedure Jalen Mora [facility] Start: 06-18-2022 End: 06-18-2022 ambulatory Devin Lam Other [facility] Other Start: 06-18-2022 Office outpatient vi sit 15 minutes Devin Stephanies [facility] [place] Start: 05-13-2022 End: 05-13-2022 ambulatory Devin Stephanies Other [facility] Other Start: 05-13-2022 Office outpatient vi sit 15 minutes Devin Stephanies [facility] [place] Start: 04-16-2022 End: 04-16-2022 ambulatory Devinkye Arroyos Other [facility] Other Start: 04-16-2022 Office outpatient vi sit 25 minutes Devin Stephanies [facility] [place] Start: 04-15-2022 End: 04-15-2022 Lab Drop off SAIDA ABAD [facility] Start: 04-15-2022 End: 04-15-2022 Patient encounter procedure Kwadwo SAEZ [facility] Start: 03-06-2022 End: 03-06-2022 Lab Drop off Kwadwo SAEZ [facility] Start: 03-06-2022 End: 03-06-2022 Patient encounter procedure Ravinder MCCAULEY [facility] Start: 02-04-2022 End: 02-04-2022 Lab Drop off SAIDA ABAD [facility] Procedures Date Procedure Procedure Detail Performing Clinician Start: 11-09-2013 Colonoscopy and biop sy of colon Kwadwo SAEZ Start: 11-09-1989 History of tonsillectomy Kwadwo SAEZ Start: 11-09-1989 Tonsillectomy SAIDA HELMRY Start: 11-09-1989 Tympanotomy SAIDA [place] Immunizations Immunization Date Immunization Notes Care Provider Rao rincon 11-09-2020 SARS-CoV-2 mRNA (tozinameran 5y-11y) vaccine Jalen Mora [facility] Comment on above: Result Comment: 2 [facility] 03-10-2015 tetanus toxoid, reduced diphtheria toxoid, and acellular pertussis vaccine, adsorbed Kwadwo SAEZ [facility] Comment on above: Reason for Medicatio n: Other (see comment) NEGATED: Highlighted row has not occurred!02-19-2019 influenza, seasonal, injectable Patient Objection Devin Lam Other [facility] Other Payers Date Payer Category Payer Unknown [id number] 2.16.84 [id number] 1986 Unknown [id number] 2.16.84 [id number] 1986 Unknown [id number] 2.16.84 [id number] 1986 Unknown [id number] 2.16.84 [id number] 1986 Unknown [id number] 2.16.84 [id number] 1986 Unknown [id number] 2.16.84 0.1.170845.3.579.2.593 1986 Unknown [id number] 2.16.84 0.1.636160.3.579.2.593 1986 Unknown [id number] 2.16.84 [id number] 1986 Unknown [id number] 2.16.840 .1.556155.3.579.2.1259 1986 Unknown [id number] 2.16.840 .1.279100.3.579.2.1259 1986 Unknown [id number] 2.16.840 .1.824919.3.579.2.1259 1986 Unknown [id number] 2.16.840 .[id number] 1959 Unknown [id number] 2.16. [id number] 1959 Unknown [id number] Social History Date Type Detail Facility Start: 02-04-2022 End: 02-25-2022 Tobacco smoking status Never smoked tobacco (finding) [facility] Tobacco smoking status Never [facility] Sex Assigned At Female [facility] Functional Status Date Assessment Result Facility 06-25-2022 Functional Status N/A [facility] Clinical Notes 02-04-2022 to 10-23-2023 Note Date & Type Note Facility 10-23-2023 Note F/U with OB and mate rnal medicine as scheduled [facility] 10-23-2023 Note [facility] CARDIOLOGY PROGR ESS NOTE HPI: Jessa Chatman is a 38 y.o. female here for tachycardia during Patient here per Dr. Angel for tachycardia in . She is currently 32w5d along. CERTIFIED PROFESSIONAL CODER started her on metoprolol tartrate 25mg daily [...] scheduled RTC 2-3 months or as needed [facility] 10-23-2023 Note Patient here per Dr. Angel for tachycardia in . She is currently 32w5d along. CERTIFIED PROFESSIONAL CODER started her on metoprolol tartrate 25mg daily a few weeks ago, which as helped with palpitations. HR gets as high as 147 at rest sometimes. This issue went away after the of her last baby. Review of Systems Cardiovascular: Positive for dyspnea on exertion. Neurological: Positive for light-headedness. All other systems reviewed and are negative. [facility] 04-15-2023 Evaluation note Encounter Date Diagnosis Assessment Notes Apr, Spontaneous rupture of tympanic membrane of right ear concurrent with and due to acute suppurative otitis media (ICD-10 - H66.011) [facility] Other 01-11-2023 NoteOPERATIVE NOTE OPERATION DATE: 11/19/2022 PROCEDURE: Suction D AND C. PREOPERATIVE DIAGNOSIS: Missed first trimester. POSTOPERATIVE DIAGNOSIS: Missed first trimester. ANESTHESIA: General. SURGEON: Mouna Angel D.O. CLINICAL OUTCOMES MANAGER: None. FINDINGS: Products of conception. SPECIMEN: Products [...] products of conception were removed using a 9-Hungarian suction curette. Excellent hemostasis was noted. The patient tolerated the procedure well. Sponge, lap, and needle counts were correct x 2. All instruments were then removed from the patient's vagina. The patient was taken to the Recovery Room in stable condition. [id number] Evaluation + Plan note Diagnostic Tests Pending * UTI ([facility]) 07/03/22 [facility] 08-17-2022 Hospital Discharge instructions Patient [...] Follow these instructions at home: Medicines Take pwed-dxz-batenzk and prescription medicines only as told by [...] 10/26/2006 Document Revised: 03/13/2020 Document Reviewed: 03/13/2020 [employer] Patient Education 2019 [employer]. 06/25/2022 09:59:21 Urinary Tract Infection, Adult Urinary [...] Treatment for this condition includes: Antibiotic medicine. Goys-var-bowkfxv medicines to treat discomfort. Drinking enough water [...] Follow these instructions at home: Medicines Take kcfm-aaz-nypchpd and prescription medicines only as told by [...] 08/05/2006 Document Revised: 10/13/2019 Document Reviewed: 05/05/2019 [employer] Patient Education 2020 [employer]. [facility] 08-10-2022 Evaluation note* Encounter Date [...] that she can go off it completely. [facility] Other 07-05-2022 Evaluation note* Encounter Date Diagnosis [...] calf. 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 Patient would like to hold off on the referral for now. [facility] Other 06-08-2022 Evaluation note* Encounter Date Diagnosis [...] or any other dysrhythmias. She voices understanding [facility] Other [id number] Evaluation + Plan note Diagnostic Tests Pending * [facility] App[facility]ments Appointment Date:07/02/2022 02:45:00 PM Scheduled Provider:Kwadwo SAEZ MD Location:[facility] Appointment Type:URO Office Visit [facility] Evaluation + Plan note Future Appointments Appointment Date:07/02/2022 02:45:00 PM Scheduled Provider:Kwadwo SAEZ MD Location:[facility] Appointment Type:URO Office Visit Diagnostic Tests Pending * Urine [facility] Future Appointments Appointment Date:07/02/2022 02:45:00 PM Scheduled Provider:Kwadwo SAEZ MD Location:[facility] Appointment Type:URO Office Visit Diagnostic Tests Pending * Urine Culture [facility]15[facility]22 [facility] note[facility] InformationNort Carnad Other History general Narrative - Reported* Type Description Date Medical History Anxiety Hospitalization History childbirth 2014 [employer] [facility] Other Hospital course Narrative No data available for this section [facility] No data available for this section [facility] No data available for this section [facility] Summary Purpose Family History No Family History [...] acute suppurative otitis media (H66.011) Referral Organization [facility] [place] Referring Provider First Name Devin Referring Provider Last Name Ziggy Referring Provider Specialty Family Prac brittanie Referred Organization [facility] Referred Provider Aldo Bolanos Referred Address ,[place], [place],[address] Referred Provider Specialty Otolaryngolo gy Referral Priority Routine General Notes Higinio Asher 023 12:56:47 PM >Received today. [facility] request us to send the referral and they will call and schedule patient. Referral was fax Clinical Notes Office [phone] Additional Source Comments INFORMATION SOURCE (unrecogn ized section and content) DATE CREATED AUTHOR 02/26/2022 [facility] DATE CREATED AUTHOR AUTHOR'S ORGANIZ ATION 07/04/[address] [facility] DATE CREATED AUTHOR AUTHOR'S ORGANIZ ATION 07/05/2022 Levy Justin [facility] DATE CREATED AUTHOR AUTHOR'S ORGANIZ ATION 01/21/2023 [facility] DATE CREATED AUTHOR AUTHOR'S ORGANIZ ATION 10/25/2023 [facility] DATE CREATED AUTHOR AUTHOR'S ORGANIZ ATION 11/16/2023 [facility] EPIC REASON FOR VISIT (unrecogniz ed section and content) weight management/ UTI4 week follow up-weight mgmt.1 month Follow up weight managementClinicalClinical Care Team (unrecognized sect ion and content) Personnel Name: ZIGGY DEVIN Address: [address] [place] [address] Personnel Name: STEPHNAIELori DO DEVIN Address: [address] [place] [address] FOR RECORDS PERTAINING TO PATIENTS WHO ARE [...] BE BASED ON THE PRIMARY CLINICAL RECORDS. [employer] [facility]. provides no warranty or guarantee of the accuracy or completeness of information in this document.
[2023-11-26 08:14] VITALS: BP 122/75; PULSE 80
== END 2023-11-26 08:43 | disposition home or self-care (01) ==
LOC: FBCO 07:07 → FBC 08:07
PROVIDERS: Visit Provider Obstetrics & Gynecology
DX: O26.843 Uterine size-date discrepancy, third trimester (principal); O09.523 Supervision of elderly multigravida, third trimester
CPT/HCPCS: 59025

== ENCOUNTER 2023-11-30 07:39 | Outpatient (OUT) | payer BC, SELFPAY ==
--- OUTSIDE RECORDS SUMMARY | 2023-11-30 07:42 | XMS_ITS | CCD ---
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 Name Role Phone DEVIN LAM Primary Care [...] MCKENZIE Attending Unavailable MOUNA ANGEL Attending Unavailable LUIS M, MOUNA Attending Unavailable MOUNA ANGEL Attending Unavailable MOUNA ANGEL Attending Unavailable LUIS M, MOUNA Attending Unavailable Allergies Allergy Classification Reported Allergen(s) Allergy Type Date of Onset Reaction(s) Facility (12 sources) Acetaminophen / HYDROcodone; Translations: [acetaminophen-hy drocodone] Drug Allergy Nausea (finding) [facility] (13 sources) Banana Extract; Translations: [Banana] Drug Allergy 09-10-20 20 Itching (finding) [facility] (8 sources) Melon; Translations: [melon] Drug allergy 09-10-20 20 Itching (finding) [facility] (5 sources) Melon Propensity to adverse reactions Unknown [facility] Other (1 source) Acetaminophen / HYDROcodone Drug Allergy 09-10-20 20 [facility] (1 source) Acetaminophen / HYDROcodone; Translations: [HYDROCODONE-ACET AMINOPHEN] Drug Allergy 04-10-[address] [facility] Medications Current Medications Medication Drug [...] day(s), # 90 cap(s), Refills(s) 0, Pharmacy: [facility] [id number] [address] [facility], 162, cm, 02/25/22 14:21:00 EDT, [...] procedure, # 2 cap(s), Refills(s) 0, Pharmacy: [place] [id number] [address] [facility], 162, cm, 02/04/22 14:57:00 EDT, Height/Length Dosing, 75, kg, 02/04/22 14:57:00 EDT, Weight Dosing Start Date: 02/04/22 Status: Ordered citalopram 20 mg oral tablet (10 sources) Serotonin Reuptake Inhibitor Start: 02-04-2022 take 1 mg by mouth once daily CeleXA 20 mg Tab mg tab(s), Oral, Daily, Refills(s) 0 Start Date: 02/04/22 Status: Ordered take 0.5 tablet by m out every twenty-four hours Citalopram Hydrobromide 20 MG 0.5 tablet Orally Once a day Active Docusate (9 sources) Start: 02-04-2022 take 1 mg by mouth twice daily Dulcolax Stool Softener mg, Oral, BID, Refills(s) 0 Start Date: 02/04/22 Status: Ordered Start: 03-09-2015 take 1 capsule by mo [facility] twice daily as needed for constipation Colace [...] 06/25/22 Status: Ordered take 1 capsule by [facility] once daily at bedtime Macrobid 100 MG [...] 10 day(s), 20 tab(s), Refill(s) 0, [facility] [id number] [facility], 162, cm, 02/25/22 14:21:00 EDT, [...] Range Facility Office Visiton 10-23-2023 Follow-up visit [id number] Jessa Chatman 1985 F Date Provider Department Center 10/23/2023 Abelino-ARACELI MCKENZIE CARD [facility] No family history on file Level of Service:64179 [place] OFFICE/OUTPATIENT ESTABLISHED MOD MDM 30-[address] [facility] PROGRESSon 10-23-2023 Beta HCG ( test) [...] sugar. She voiced understanding of risks. Normal [facility] PREG QUANT HCGon 12-19-2022 HCG QUANT 5 mIU/mL Normal [facility] Comment on above: Performed By: #### P REGQNT #### [facility] [address] [place] [address] Dr. Fadi Meza HCG RANGE SEE BELOW Normal [facility] Comment on above: Result Comment: 5-50 0.2-1 WEEK 50-500 1-2 WEEKS 100-5,000 2-3 WEEKS 500-10,000 3-4 WEEKS 1,000-50,000 4-5 WEEKS 10,000-100,000 5-6 WEEKS 15,000-200,000 6-8 WEEKS 10,000-100,000 2-3 MONTHS Performed By: #### P REGQNT #### [facility] [address] [place] [address] Dr. Fadi Meza PREG QUANT HCGon 12-05-2022 HCG QUANT 43 mIU/mL Normal [facility] Comment on above: Performed By: #### P REGQNT #### [facility] [address] [place] [address] Dr. Fadi Meza HCG RANGE SEE BELOW Normal [facility] Comment on above: Result Comment: 5-50 0.2-1 WEEK 50-500 1-2 WEEKS 100-5,000 2-3 WEEKS 500-10,000 3-4 WEEKS 1,000-50,000 4-5 WEEKS 10,000-100,000 5-6 WEEKS 15,000-200,000 6-8 WEEKS 10,000-100,000 2-3 MONTHS Performed By: #### P REGQNT #### [facility] [address] [place] [address] Dr. Fadi Meza CBC AUTO DIFFon 11-19-2022 BASO # 0.0 103/ul Normal 0.0-0.1 [facility] Comment on above: Performed By: #### C VDTBH #### [facility] [address] [place] [address] Dr. Fadi Meza Basophils/100 WBC (Bld) 0.7 % Normal 0.2-2.0 [facility] Comment on above: Performed By: #### C VDTBH #### [facility] [address] [place] [address] Dr. Fadi Meza EO # 0.1 103/ul Normal 0.0-0.7 [facility] Comment on above: Performed By: #### C VDTBH #### [facility] [address] [place] [address] Dr. Fadi Meza Eosinophils/100 WBC (Bld) 2.1 % Normal 0.9-7.0 [facility] Comment on above: Performed By: #### C VDTBH #### [facility] [address] [place] [address] Dr. Fadi Meza Erythrocyte distribution width (RBC) [Ratio] 13.7 % Normal 11.0-15.0 [facility] Comment on above: Performed By: #### C VDTBH #### [facility] [address] [place] [address] Dr. Fadi Meza Hematocrit (Bld) [Volume fraction] 36.9 % Normal 36.0-48.0 [facility] Comment on above: Performed By: #### C VDTBH #### [facility] [address] [place] [address] Dr. Fadi Meza Hemoglobin (Bld) [Mass/Vol] 11.8 g/dL Critically low 12.0-16.0 [facility] Comment on above: Performed By: #### C VDTBH #### [facility] [address] [place] [address] Dr. Fadi Meza IG # 0.01 10e3/ul Normal 0.00-0.03 [facility] Comment on above: Performed By: #### C VDTBH #### [facility] [address] [place] [address] Dr. aFdi Meza IG % 0.2 % Normal 0.0-0.5 [facility] Comment on above: Performed By: #### C VDTBH #### [facility] [address] [place] [address] Dr. Fadi Meza LYMPH # 1.3 103/ul Normal 1.2-3.8 [facility] Comment on above: Performed By: #### C VDTBH #### [facility] [address] [place] [address] Dr. Fadi Meza Lymphocytes/100 WBC (Bld) 29.3 % Normal 20.5-60.0 [facility] Comment on above: Performed By: #### C VDTBH #### [facility] [address] [place] [address] Dr. Fadi Meza MANUAL DIFF REQ NO Normal [facility] Comment on above: Performed By: #### C VDTBH #### [facility] [address] [place] [address] Dr. Fadi Meza MCH (RBC) [Entitic mass] 28.4 pg Normal 26.7-34.0 [facility] Comment on above: Performed By: #### C VDTBH #### [facility] [address] [place] [address] Dr. Fadi Meza MCHC (RBC) [Mass/Vol] 32.0 g/dL Normal 29.9-35.2 [facility] Comment on above: Performed By: #### C VDTBH #### [facility] [address] [place] [address] Dr. Fadi Meza MCV (RBC) [Entitic vol] 88.9 fL Normal 81.0-99.0 [facility] Comment on above: Performed By: #### C VDTBH #### [facility] [address] [place] [address] Dr. Fadi Meza MONO # 0.5 103/ul Normal 0.3-0.8 [facility] Comment on above: Performed By: #### C VDTBH #### [facility] [address] [place] [address] Dr. Fadi Meza Monocytes/100 WBC (Bld) 10.6 % Normal 1.7-12.0 [facility] Comment on above: Performed By: #### C VDTBH #### [facility] [address] [place] [address] Dr. Fadi Meza NEUT # 2.5 103/ul Normal 1.4-6.5 [facility] Comment on above: Performed By: #### C VDTBH #### [facility] [address] [address] [address] Fadi Meza Neutrophils/100 WBC (Bld) 57.1 % Normal 43.0-75.0 [facility] Comment on above: Performed By: #### C VDTBH #### [facility] [address] [address] [address] Fadi Meza Platelet mean volume (Bld) [Entitic vol] 9.4 fL Critically low 9.5-13.5 [facility] Comment on above: Performed By: #### C VDTBH #### [facility] [address] [address] [address] Fadi Meza PLT 210 103/ul Normal 150-450 [facility] Comment on above: Performed By: #### C VDTBH #### [facility] [address] [address] [address] Fadi Meza RBC 4.15 106/ul Critically low 4.20-5.40 [facility] Comment on above: Performed By: #### C VDTBH #### [facility] [address] [address] [address] Fadi Meza WBC 4.3 103/ul Normal 4.0-11.0 [facility] Comment on above: Performed By: #### C VDTBH #### [facility] [address] [address] [address] Fadi Meza PREG QUANT HCGon 11-19-2022 HCG QUANT 03505 mIU/mL Normal [facility] Comment on above: Performed By: #### P REGQNT #### [facility] [address] [address] [address] Fadi Meza HCG RANGE SEE BELOW Normal [facility] Comment on above: Result Comment: 5-50 0.2-1 WEEK 50-500 1-2 WEEKS 100-5,000 2-3 WEEKS 500-10,000 3-4 WEEKS 1,000-50,000 4-5 WEEKS 10,000-100,000 5-6 WEEKS 15,000-200,000 6-8 WEEKS 10,000-100,000 2-3 MONTHS Performed By: #### P REGQNT #### [facility] [address] [address] [address] Fadi Meza US PREG <14 WKSon 11-19-2022 US PREG <14 WKS Obstetrical ultrasound, 1st trimester CLINICAL: Evaluate prior to scheduled DANDC. TECHNIQUE: Transabdominal and transvaginal obstetrical ultrasound was performed. FINDINGS: Comparison: Ultrasound 11/12/2022 There is a single intrauterine fetus. [place]-rump length is 1.81 cm, correlating with gestational age 8 weeks 3 days. No heart tones are detected. IMPRESSION: 1. Single intrauterine nonviable gestation. No heart tones detected, and no growth since previous ultrasound 11/12/2022. Electronically authenticated by: RUCHI FRANK Date: 2022-11-19 13:17 Normal [facility] PAP ACOG PANEL 2: 30 to 65on 11-16-2022 . . Normal [facility] Comment on above: Result Comment: Perf ormed at: WB Performed By: #### 4 [id number] #### [facility] [address] [address] [address] Fadi Meza Age Gdln ACOG Testing 30-65 Normal [facility] Comment on above: Performed By: #### 4 [id number] #### [facility] [address] [address] [address] Fadi Meza DIAGNOSIS: Comment Normal [facility] Comment on above: Result Comment: NEGA TIVE FOR INTRAEPITHELIAL LESION OR MALIGNANCY. Performed at: WB Performed By: #### 4 [id number] #### [facility] [address] [address] [address] Fadi Meza HPV Aptima Negative Normal Negative [facility] Comment on above: Result Comment: This nucleic acid amplification test detects fourteen high-risk HPV types (16,18,31,33,35,39,45,51,52,56,58,59,66,68) without differentiation. Performed at: =G Performed By: #### 4 [id number] #### [facility] [address] [address] [address] Fadi Meza HPV Genotype Reflex Comment Normal [facility] Comment on above: Result Comment: Crit eria not met, HPV Genotype not performed. Performed at: WB Performed By: #### 4 [id number] #### [facility] [address] [place] [address] Dr. Fadi Meza Methodology: Comment Normal [facility] Comment on above: Result Comment: This liquid based ThinPrep(R) pap test was screened with the use of an image guided system. Performed at: WB Performed By: #### 4 [id number] #### [facility] [address] [place] [address] Dr. Fadi Meza Note: Comment Normal [facility] Comment on above: Result [...] Performed at: WB Performed By: #### 4 [id number] #### [facility] [address] [place] [address] Dr. Fadi Meza Performed by: Comment Normal [facility] Comment on above: Result Comment: [place], Weight Inspector (ASCP) Performed at: WB Performed By: #### 4 [id number] #### [facility] [address] [place] [address] Dr. Fadi Meza Specimen adequacy: Comment Normal [facility] Comment on above: Result Comment: Sati sfactory for evaluation. Endocervical and/or squamous metaplastic cells (endocervical component) are present. Performed at: WB Performed By: #### 4 [id number] #### [facility] [address] [address] [address] Fadi Meza CHLAMYDIA/GONOCOCCUS TALAT (SW AB/URINE/PAPon 11-15-2022 Chlamydia trachomatis, TALAT Negative Normal Negative [facility] Comment on above: Performed By: #### C T/NGNA #### [facility] [address] [place] [address] Dr. Fadi Meza Neisseria gonorrhoeae, TALAT Negative Normal Negative [facility] Comment on above: Performed By: #### C T/NGNA #### [facility] [address] [address] [address] Fadi Meza VAGINITIS/VAGINOSIS DNA PROB Kel 11-14-2022 Shannon species Negative Normal Negative [facility] Comment on above: Performed By: #### V AGINT #### [facility] [address] [place] [address] Dr. Fadi Meza Gardnerella vaginalis Negative Normal Negative [facility] Comment on above: Performed By: #### V AGINT #### [facility] [address] [address] [address] Fadi Meza Trichomonas vaginalis Negative Normal Negative [facility] Comment on above: Performed By: #### V AGINT #### [facility] [address] [place] [address] Dr. Fadi Meza Covid-19 PCR (CVDTBH)on SARS-CoV-2 (COVID-19) RNA TALAT+probe Ql (Unsp spec) Not detected Normal NOT DETECTED [facility] Comment on above: Result Comment: This test is not yet approved or cleared by the [place] FDA. When there are no FDA-approved or cleared tests available, and other criteria are met, FDA can make tests available under an emergency access mechanism called an Emergency Use Authorization (EUA). The EUA for this test is supported by the [place]cher of Health and Human Service's (HHS's) declaration [...] SARS-CoV-2. Performed By: #### C VDTBH #### [facility] [address] [address] [address] Fadi Meza US PREG TVon 11-12-2022 [...] LUIS MANUEL VEGA Date: 2022-11-12 16:44 Normal [facility] CULTURE URINEon 09-01-2022 CULTURE URINE Culture Observations: LIGHT GROWTH OF MIXED GENITAL SIRIA. NO POTENTIAL PATHOGENS SEEN. Normal [facility] Comment on above: Performed By: #### U RCX #### [facility] [address] [place] [address] Dr. Fadi Meza UA RANDOMon 09-01-2022 Bilirubin Ql (U) Negative Normal NEGATIVE [facility] Comment on above: Performed By: #### U A #### [facility] [address] [place] [address] Dr. Fadi Meza Clarity (U) CLEAR Normal CLEAR [facility] Comment on above: Performed By: #### U A #### [facility] [address] [place] [address] Dr. Fadi Meza Color (U) YELLOW Normal YELLOW [facility] Comment on above: Performed By: #### U A #### [facility] [address] [place] [address] Dr. Fadi Meza Glucose Ql (U) Negative Normal NEGATIVE [facility] Comment on above: Performed By: #### U A #### [facility] [address] [place] [address] Dr. Fadi Meza Hemoglobin Ql (U) Negative Normal NEGATIVE [facility] Comment on above: Performed By: #### U A #### [facility] [address] [address] [address] Fadi Meza Ketones Ql (U) Negative Normal NEGATIVE [facility] Comment on above: Performed By: #### U A #### [facility] [address] [place] [address] Dr. Fadi Meza LEUKOCYTES Negative Normal NEGATIVE [facility] Comment on above: Performed By: #### U A #### [facility] [address] [place] [address] Dr. Fadi Meza Nitrite Ql (U) Negative Normal NEGATIVE [facility] Comment on above: Performed By: #### U A #### [facility] [address] [place] [address] Dr. Fadi Meza pH (U) 6.0 [pH] Normal 5-9 [facility] Comment on above: Performed By: #### U A #### [facility] [address] [place] [address] Dr. Fadi Meza SPEC GRAVITY 1.025 Normal 1.005-<=1.025 [facility] Comment on above: Performed By: #### U A #### [facility] [address] [place] [address] Dr. Fadi Meza UA PROTEIN Negative Normal NEGATIVE/ TRACE [facility] Comment on above: Performed By: #### U A #### [facility] [address] [place] [address] Dr. Fadi Meza Urobilinogen Qn (U) 0.2 {Shan'U}/dL Normal 0.2 - 1. 0 [facility] Comment on above: Performed By: #### U A #### [facility] [address] [place] [address] Dr. Fadi Meza CULTURE URINEon 08-02-2022 CULTURE [...] Trimethoprim/Sulfame thoxazole >=320 R F Normal [facility] Comment on above: Performed By: #### C VDTB #### [facility] [address] [address] [address] Fadi Meza UTI ([facility])on 07-05-2022 UTI Report Diagnosis Info Invalid Interpretation Code [facility] Comment on above: Result Comment: Osmani [...] on: 07/04/2022 23:05:19 Performed By: #### 2 [id number] ####[facility] [address] [place] [id number] UTI ([facility])on 07-03-2022 UTI Method of Extraction Voided Normal [facility] Comment on above: Performed By: #### 2 [id number] ####[facility] [address] [place] [address] UTI Number of Jars [address] [facility] Comment on above: Performed By: #### 2 [id number] ####[facility] [address] [place] [address] UTI Specimen Urine Normal [facility] Comment on above: Performed By: #### 2 [id number] ####[facility] [address] [place] [address] UTI Type of Service Global Normal [facility] Comment on above: Performed By: #### 2 [id number] ####[facility] [address] [facility] [place] [address] Urology Office/Clinic Noteon 06-27-2022 Urology Office/Clinic Note [...] Low estrogen (more content not included)... Normal [facility] Comment on above: Result Comment: Elec tronically Signed By: Jalen Robledo\.br\Date and Time Signed: 06/27/22 00:01 EDT Ambulatory Visit Summaryon 0 06-25-2022 Ambulatory Visit Summary JESSA CHATMAN :1985 Visit Date:06/25/2022 Ambulatory Visit Instructions Your Diagnosis Recurrent UTI Bilateral kidney stones Tests Performed Urnls Dip Stick Auto w/o Microscopy POC 42092 Your Care Team Attending Physician - Jalen [...] Urnls Dip Stick Auto w/o Microscopy POC 76087 (06/25/2022) Bilirubin Urine Dipstick - 1+ Small Blood Urine Dipstick - 3+ Large Glucose Urine Dipstick - Negative Ketones Urine Dipstick - Trace - 5 mg/dl Leukocytes Urine Dipstick - Trace Nitrite Urine Dipstick - Negative Protein Urine Dipstick - 2+ (100 mg/dl) Specific [place] Urine Dipstick - 1.025 Urine Appearance Urine [...] to exami (more content not included)... Normal [facility] Patient Educationon 06-25-20 Patient Education Obstetrics [...] this condition includes: ? Antibiotic medicine. ? Oorp-pqr-nvxaqhq medicines to treat discomfort. ? Drinking enough [...] these instructions at home: Medicines ? Take oshx-zzl-tduayyv and prescription medicines only as told by [...] This in (more content not included)... Normal [facility] Coding Summary.on 04-23-2022 Coding Summary. CD:[id number] Gh0bWw+PGhlYWQ+PE1FV IIpH86ycXZdyP3OI1oIB J2YBNDCNEDTIP7DVA7gk FI5ZXcdX9YlipQe DzrsoKYdBC99ZGj9BXL7 nQldJFostI5cgMJqP0b1 BvRtDN86vA84FLjdFJNm SmM4VaOvzjvojLTx Z3hwIeUveWZpWnq+PHRh YmxlIHdpZHRoPScxMDAl RhUyoTfcUK0hUb2jMUKe LWNvbGxhcHNlOiBj w9inCBBeWNfoEX1zfUfs T4StzIG7VPWup7o6Is03 dHI+THEoAOR1hHdxUFxk p314TsGdr8yaUSJ0 xZNxHYwnLHK3Q03th5W2 LWScJUKwYPF8iMK7mI3o tOnvshmlR7QkpNTsCdA7 WWK5fGUtfU0beCxb yxpylB1eVnz+Z88FZN6O IKDWNN8SJac6V3OrAdas dHI+DS78KQDhGU11xGPu iOGoa3jgbOb1ZyBx KQVsFMS4hXekNBkgm9Gj SLVmV52zkQLkl2E0KGQq uHpzaBViYlCisEQ2yH9b RDnmctgpf2dxekhs Dxghj8oeic15gC51Z90r GNdqZOTyZPR5AXUqABPh rRxlbe2szT4tEk0+IDxj f8pbc8dgySh9WaDl XSPvehRloPodLCT9w0Ds Qg72Q2XrjGlmw9YzWtg1 bj81jWRpl4O3fBZ4RFds BVYxpP2qFVeeTxR3 CSNmTzJjjQ46qBXhVNub Hg4zlGexnYhsXY3rOJLa uewgZGAjgH8yAMJmlFHj gFbfJW7dENPclzmt b922GcPpCOS3GNRdtAWk R9AjaK7mCaQmHOJuLTTr U9OesFYbAFffP174POod NtJ2HAYefnJpD5Az COWurRtpBzT0r1X4Gk6T f9JmjjgyLRF4NYdkPQS9 IeT4MsYvAlE4R9IbOlb9 TOVxjCrrMG5zB9Rl LSAlmpkvuyahuMG7UYEb MMSntI68wZVkHRjqLx8z j1T8w088YCVaETSknL48 Ck4hfHhyAYJgkGZA tU5soalch3qolxjdZdQe GFDpBLe8AIe4DWUizClt ZaWfDLU8WuJ6REU0lESc lD6fcQynhhhnyE1g Oyc+K54kjQ8zFYV6YSV7 zwohBKGsztIpZG13ZF34 G5YjHlmtnDNwnNG+PGRp kfQwpKzjFZ4jYcZe t2nox3XnILjyP0TxSOMm GKzsCco7ZRJrCKI0oKB1 yO3pPTXvMQqqr9F8vSJ7 D4ZcaaFwcg5ns6ix NFVqWJmyT43phARst6O9 SXVimGL6ZOTiyDeiHxXn xP41Cuy+XVAgoPwir7Fm Sqfuh1gsk6pmiJn0 IjMwJSIgdmFsaWduPSJ0 z3EfNn40A48zGNqpSBRh VQRlHNXqRSQkfQembq1m hL8kYk9+PGNvbCB3 fHA7vY5iZQHaRyD5GMna I437RtPtwTVtOotya1ci k5ozdPn1UpLfEMVwdlUh uSjpDZD3i6LbMd08 F05dSUoeQOMxJXVbXNDb UBAdlVflya0psD6aLw1+ OC3vi2jolz10jG77jSW+ KPRdDEV5zVvzWAgs CSXzmO4gRDfeWpM5PNPc CtQceA93fMWiHVeaTu1n qYapzLrjLT9bVVVltvty j915XkXbm2woBPTu tKNgRKczKBT5U71qb0X2 WXWvJKYsXEV6pUG6kH5q bGlnbjogbGVmdDsgdmVy oBvvAVzuLQpbE591 IHRvcDsnPlBhdGllbnQg OuWzQKj4H9WrQcw2SICe fZdnWY5udXClMImoRi2e fXfeuLodZQ7pVRXo wngkt445WsLgv9ytMIEk iHTdNPawSVG3C13uk7F9 LJYpDZUuQHV2cUL9kH9m bGlnbjogbGVmdDsg fkTqgZdoPUadBWpkD759 IHRvcDsnPkJpcnRoIERh hUC0HE91SB91pHNgd9Q2 oFO7J3UuUIWdedxx rcmtrBG5TDQfTEGgiW73 Eh7ndTobVq2bQTNmNBT2 BBZvnQQaH5AicX0eAiDx LRFzJWTuD4XodMWf FUgqO917FJlwBpD4KYWv veKyB4QeKWJboLbkGaX1 l0V7Bp4UP8K2MO66YW81 vTNma8H9cTK2D2Lq FTIvenjbfmlhsXR5GXRj UFLrzR28Og2naKooCu4r EZSdNMS0UQPyhEHhA8Jl hO0mSbDiZYSwBLBm K4MfwMOwAYwrD643XFfi DeA8EWCkupHfQ5GbUDCi kDggTdI4b5Y9Fz7NPLh8 LO57ZM79rYQvb2Q6 yYC6B6PjSEZoozebqbsb dUC9GOUbTVItaI24Rl8e aTmmTg4yMPPhNDK6UKYf cLBmD8HplK2qGgCl QTKvKDDlF5QwmTMhBElm T506SJofJcA7YTFbqnTj L3XhAFCzcWfkKbU4x1T5 As6EKWUeXG76SGO7 nYK8DJ53RW76R3YeBxdk dGFibGU+PHRhYmxlIHdp ZHRoPScxMDAlJyBzdHls FQ0pZq0kONVwJZUc jRnobHDbBaEia2nnUXYk XMcaSF1uhOubW2XdjLT3 GSEds8h5Xn52I03jL6Dx dXA+JBMtqFR3jMN6 kU5dCxMxKgH5JDkqC197 TlFsxCQfPaupb3fxd5lm jMm1SzC9SSMjvnCkbZfm VVA3c9RaQu12V47u IHdpZHRoPSIxNSUiIHZh dFiaia7qhQ0kUz5+PGNv fZB6qQJ3kK1gRrKvHdX1 IZolK963DjZvrAQd Glndo7wrh6tryQc8XpPf VHZvysDrzDwnCYN2q5Pd Xi13O8LjlYxpv9MnNaw4 fx44jKZlc7Z4fBK3 O2ClOIGtqzyulDKrsBar CX9uEMWqxiovZTQliL8k TZDtH5s2GlJnYmT7DLlo S8CkluM4EGPjwIQj ZZdhWEW1B38pz7Z7OQTf UVStGFY7fAC6uR0vyIgw bjogbGVmdDsgdmVydGlj NWnqNDlvY879MRSj aUomLFXblA7nPUKktGGi iHnwJE9gJPVhjfziJy9D AWYITYHHQO1GGXzvzMG+ PGUrRLY2xPaeWWvg XHVjjA4xKIPlO8p5LpDo ByC2MZdfV9KtILYwrfko Bq61rB1dIkEaEbS7NCpm J6FyclM2UOVmyAIt UUrkFHH4K48ao3N8IHUv NBKtZCB3dXF2hO9oeZgo bjogbGVmdDsgdmVydGlj PKbpHKnqS097IMEr zVlaZeU0ZuF9UyU1LMF6 N2WnQcq8ZNTbeEvcKP0w nOUoMFsdPm6vuDinmKrs PQ8hMEDvqwewIQVh vI3dOVQoqVAnrIyfDW8s EDUcukiom190TaQgHAZ3 PDQpeKFxP1OixU3oFkWw RJNyGDFzG2TgcBNu KCknH561RMbrRvZ3VFIk liFkI4KfOHRzeXgoByY1 i6F3Po2dHAFXIEFrlndu dGQ+ONEoPUL5tGnt YGbjASZvbH0iZBZwL8k3 CcLeLjJ6YTjrW3ZjCXOn vbhiEt24cY6tCkVwMsY3 HHzgE0CbzsR6YJGy mXFeMQvfNAI6C74lr0U1 NCHmSELpADI2rAV6vP7z bGlnbjogbGVmdDsgdmVy tIufOZukONqzZ620 IHRvcDsnPkZlbWFsZTwv dGQ+VTZlYWZ0uOxoIEis JLXkwS6oSPRlU0g3KrVu MfO1UWgiO1ZxRCIs edqrUi55yY5aOrBuHcJ1 JCyuZ6LobtV0QRElrZOo JLbhUYN4L00cs4X7PSKh MTEvGLI7rYE8wY2d bGlnbjogbGVmdDsgdmVy rJtfZWsxSVicA265JYSd cOvkNmlpMyVNya5lXC2z ZjwvdGQ+XE46xd03 A8GaSqkiHmc5XDHaVKU7 hAL2jL7hYIEaHWeml6S7 wOH1N6XseiTtbr2nr4xn ZDSlRGdeW35ieTHu k7M2OGTdgUR0PYJymDll AiPuzE55Rac+PGNvbGdy w5JoCstne6ulr2dnpMk0 IjMwJSIgdmFsaWdu SPF8h8HyMc59W31xWMwx ZHRoPSIzMCUiIHZhbGln tq3ukE2wNa7+PGNvbCB3 vNK5tE0pBtTwGvW7 WJgeA237NtInfLFwVnqd z1ggs9pipPo2FzLyWHMs maEfePffPXB6h2IlSp78 H5CeyQzbd8LoKue6 fr71pRMmn0G9hHH6K4Qq ZDSyvxrxkSSafUjrFR4l NKXdojmdIRDhuB4qZTUv J9h0DmWcPtT1GVhv S5DsukA7NWKofELiYBMc sEUErF6ksavgb5irlpys PpNuFLYoKXl2CUg9IORa kRmuYtYvKBT4FqE6 MLB4dRFniU7jjRqgaepb bU3uWaw+ZTd5w7fbxEFi ML5kfTL4PL31MO28yXAj r3N8lXH2O0QrUQDz owhawoxnfIM3AFEaMGAl eV43Ul8whEitHp9uLCNt GWY5XPLncTQfT1VxvE1m PcFmAQIgZUXkU4Gf gUCjSGchG384HSipLyG2 GMHdefSsO8RxGMKhgTja XwR5i6E9Me0BSJ45KS03 EB98kEOag9B2tZW8 A0KxPTArkhflhtxxsXV9 VRAcWUGqfG84Tr0taDfv Jm9sQWCpXYT2IYYcyVJq U6HzgV8cJwGpQEFa XXUlW1MwrEIpGKxwS947 JGzbLkD0FVBrguHaE0Zr UUSziWdiMxI7g0A5Pd2Q Sj47LF04RZ37eUEp t9T3vQD0X2RxYCRtjihz ubnwxPQ4RFYuOAEzfC04 Ar5imRyuTc8bAXDeSON5 BQXroRDpC4WieL5j OjItBIJxIXUzE3CltMKc JJeaE358IIzeQdA1EFVp hkUnH6LrXMAubJjjLeN4 r1D2Cw4TXDiahzo6 O9IzIftqvTR+EH36YRXa KW87gRJrbYUyz4jjfCp1 HqFcVWGpHFU7mBzcSWud f2LcMDFkM16ldYFr c2U6 (more content not included)... Normal [facility] Reminders 04-18-2022 Reminders - From: Lupis Turner To: EU - Clinical; Sent: 04/15/2022 15:02:18 EDT Show up: 04/18/2022 08:00:00 EDT Subject: Urine culture Reminder/Recall Urine culture done on 04/15/[address] [facility] C Urineon 04-17-2022 Bacteria identified Cx Nom (U) Microbiology PROCEDURE: Urine Culture [R1] SOURCE: U Random BODY SITE: COLLECTED DATE/TIME: 04/15/2022 15:01 EDT RECEIVED DATE/TIME: 04/15/2022 17:29 EDT START DATE/TIME: 04/15/2022 17:29 EDT FREE TEXT SOURCE: SAIDA ABAD PA-C, [...] Locations R1: This test was performed at: [facility], [address] [place] [address], [address] , , [facility] Comment on above: Performed By: #### 2 [id number] ####[place] [address] Coding Summary.on 03-13-2022 Coding Summary. CD:[id number] Gh0bWw+PGhlYWQ+PE1FV LRbM08rxIGgfN0UH8fEX W7AIIBIIARIND2QTC4id FX4DEnnM4SxhjFq YsyetSGuBS94HAo3KCO8 bVknCQhkeO2frJRvP6w2 TiYmYE18lS17TWmmZVGp GgN7LfQzgqslcKGz K9biUgZolRPiYgs+PHRh YmxlIHdpZHRoPScxMDAl HoRubUmdGH0pTi4nAZXl LWNvbGxhcHNlOiBj e9cyNOLiXYusEC6cwJyn J6VjmSR6QITdq5p4Gg28 dHI+FZTiNEP9jGipNGvy p057UiOwu7teJUU4 qIYhWPfuMSG4D32bo9Z1 LYSrTGWlCOR4gUX8oR5e sGlgycwrH0MljXQiBhR9 SWC2wLJfwK8hkCym cdawfX0zNha+Q56BLC3T EPLOTP6KEyz6Y1LqFbxf dHI+SV38XOKhDH10vDUz cSMkt3ufqXu0JxOy ZJEwIRF8xLrwGYjol0Oj ECHdT31upZDuf6Z1ITAx nSwveFIcVbMbjZU0bR8w SUhahhyfm1cqiupg Qmjmf0jqqv85sB74D23j OHquUXZkROF9XEWuYQGu nXbysd1maO2hVy7+IDxj b9hqo5gldMl7QyOr ZRAbgmNtmUgsHHC5u9Tu Bd29T3LrrXtin9HvPce4 ps93pNTuw7Z9hFU3SIet GFCxqE8nYSttAzA2 ZDPjHyNicH55oVOtTTax Bc7ujPbzlEckSD6sAJQs zhqgGXAqqQ3mXCLzhBRz yFnpOB1dRHAbeysp b316CcXuCJV8IUQzsNKk V5KrpO6vPhMbZTFqGVHi E8FjaKKaADxeV496LXvl MdP1FMPrrvKjB7Kx ETSkjUqdAzM4j8R1Eh6O v9EqdatdOKW4LJqoRJJ1 NuX1WzNtWiA2N4FmIpk9 DCUicOrpHV1oU6Ef FRFipflhhkxtcOF9XXKm FSIqbT58gQWwFLzgRi0d h4Y4f396GJQcWPZqkA24 Fj6vbLppORDnjHOC nA1ofnvqd8zgbyrxBrMh VLVcKTq9BUf7IUIfgQvt RwZkVSV6OgE8VKY6nCMk mC9zhGeqgxjfvT4f Oyc+G49mqZ6vCPO7WYK7 pzxyBVAgheEuCM93IW47 E5UnPzaonEJnsTI+PGRp yySpvXsvEW9cCaQl t3wbn7JkJZloA5MtVDAl NSleMhq5QTPuQXI9zGS0 jV3kHNAdZCdlp5H7nVL5 K9VkdbQdwh2xg9wd VNLbQGxyJ94mkULxs5N3 BEFvcMR1CSJrjFokLuGm qY00Hra+PDEfrXhor6Za Kazqk1ami9qseMq5 IjMwJSIgdmFsaWduPSJ0 q9PaKb47Z61nZXxtKYPc TGAfDIGsLMNofTldyz7p kO3nJo4+PGNvbCB3 oPG6mZ9aVQUsBoE7ZAgt K857IaCslMPoYetde0hv j0fsaGo1FfNvHVAmnzTt iBjePGX2p7BiSo55 P88gQAanCOBoGROtQEPi KBIaoAhjsk3crU3gSw3+ FG1fq3yqnv13nD81yAV+ QCYzBYB0lTyoDNxh ORIohY0wSYjpYsJ0EKBj LiTyhL66sNYpIGjzTt6g mKxtxCqrBA0vVHBuhwtd m044OqJeq6veUZDr oORbQOtuRBA5U26bb1S4 WUBsLFVbISS4zZS2zJ4t bGlnbjogbGVmdDsgdmVy uQvrTDjlEOsxS908 IHRvcDsnPlBhdGllbnQg KwZrWCi4N6EoPae8DFHv oJhkBX9chAJbAKjfDh0i zMwneZfdZT0uZBOk xciqu574JzHha8xxTUPh vAGjHUlePBT4Q68uc7P6 PPDaSIHuQQN0xDS3qK7n bGlnbjogbGVmdDsg ygQvpQgxJLnlSRdsA010 IHRvcDsnPkJpcnRoIERh zMW4VW59YJ88yLKte4O1 mTY7Y2MjYFPhfjko yxzyfPS4LEWcDAKgiN88 Mg9oeYcaKl5uICLlDOA1 NAMbiDHkZ9LsdN1lNxLm ZQLgMQYqL9UfaCBd YDaeV007KQraUwC4KLPy huIjC3NsBDVhvYsxPaI6 n6J8Lp9WQ6B0YT45JQ18 xRLwi0G1tSE3W7Ai IMYbagnavltnpKR8PQVm DQFssN91Ou1fgSywXw4y RVYfRON4EWKcfKCpJ3Pd tS2kYkPmDNSrNNXx Q6FcvXTdLRgbB263NQrm LvG5YGMybeDmE7JbOYKe tUkmGoQ1s3S1Bg3GMQx9 XK21AH25pORpc4W1 hHT7Y3JzHCPnfyodktet nIZ5FKLkARTxfG71Wg7f yMttSf9qWNIzLJG6CSSs cTPfQ1RxuV4yYwDo XXMiSHOaF8QmkHXkJBva P864PJvhYgF5FTHpwsRp D3VcXHZbdXzsQnH3k6F1 Ot9JDINlKG27CND7 hFI0WD32JK15I3OnGugh dGFibGU+PHRhYmxlIHdp ZHRoPScxMDAlJyBzdHls XV6gFk3gQNToHMCm tRnzlGSvOuBpt4dnJOSp CHgiBF4wwMdhL1BocMX4 EQYgx4n7Fg12Z13qO4Md dXA+HHQryWG6pFA7 qM4rFeAvJiT2XUfaC213 PaKbzRAvFwbyu4dpl0cc hCl3ObL8IZCefkHdpVhr JMI5g5CxPu28U89l IHdpZHRoPSIxNSUiIHZh yZbwcl0ztO5sDw7+PGNv aKP3xQE4dS5nGsTdKnS3 BJshR392FpYjhJRs Gekyi2bib5lhnUg4MlRu JWZmnjJehNhlGSR4t2Gj Mg99O2WddZjcf2JiWro7 do90iCBvb6Y8jLK8 M0IbUWQccdlkdJIvbAqb VC1gLRJrqtakEOYzfJ3n GYKdM4f0GkPqMoS2VRtn I5YwzvF7GRFntGXw RRnoFTF8M95zc6G6ZZYg NLJbTLS1xVZ5mK8ksYac bjogbGVmdDsgdmVydGlj VXwkNDwtJ221GXVa tXkeIZMlfI6dXYYgfZFg sDftDE8xRROwzgkzNy0E DYQYHEAWJU0PIZqsdVX+ EFUrOLH7lBhcZLsa TQQsrN7rIEDrU4j8DuZk PtP1MZwyX3LtUACexaie Lh49zC6qSyEpBnQ1LAmk I6QevuJ9ERYmxDXx JJuqTIM4U16ei2W2ZNJe VKDnUGO8xZC5eD9xmUlx bjogbGVmdDsgdmVydGlj WPivBPsiX988XEOg iFrsAmB7EmW6AbK8FHT1 R5RdEuw7HRTjtXxnGK0u pNTqEHshHe9nxKsvqHmy FW3bSQItonwxRRQr pD5bHOVbuYLpdLqiYE7a JYIbpizhf386UxMxNBI9 CKFjtQSvZ1FmeS6rKjAh LMOhFRClH8FauITm YOslN180SKkoKmO7LBHi aqJoL0FaDKMovPrmYmQ9 y9N5Rm0eOBLDOBJexveb dGQ+WTNdGSG8tWdp SGgfJXFoeO2aFQNtN5o8 GzGqKcH5OJnwR2NiOYWz nayhVm07wW0oBsCfKpH7 VLvkI9SadxU5YYVn wADtOLkjRMQ9H29zi3M1 JKQyXQCmZQS3wUH8sU3s bGlnbjogbGVmdDsgdmVy zIwnBAthTYsjA331 IHRvcDsnPkZlbWFsZTwv dGQ+FANsCZP7kJxkMCip JYProN4xHTDsR9c5VnNk JfO2LPqnF5AyOJNu rtnqYz96xV5gZvNhBuU3 XUszN9UlpmX7UZTbbBJk DRbyJLA5W14fc3F4HIHk RDUcCVY2qEM2hX1b bGlnbjogbGVmdDsgdmVy jUndJXvzVRiqF041NADr zUdoAnhcTbKClf0sUU0j ZjwvdGQ+MO28ez12 J6MpJtlhAwz1VJPpJXF3 dCW8fC9mCTKlYXull8F5 nVA9V0PqklMrru3oa7lh OHAcZHlsW87wkLEa n5D4ZUMfsZS3KBIvwKrz WlBceR45Omb+PGNvbGdy z9FlGerxy4ydy4sleDq0 IjMwJSIgdmFsaWdu CZD0c6EpYc67S79qGRxl ZHRoPSIzMCUiIHZhbGln jc2cmK5hDw7+PGNvbCB3 nAC7eS7nVtZdNrJ2 WAzaF452HqLnaROlUwev p4lxi9dzkMg2ObJsJRTi wtYbbQkmCYY4e1OsQq14 N7JiiEhcp3JdWnq2 ut21mHZag3Y4lVO6S4Am IMAfxqgdmHNpgDlwMT3t TXQplomePRYbkB9mNBAe E7p5EjLfLzW9XYov U0WlbnO7XGFnaEOtPVCc cGGRmH5xociwy5vqesgw IuHcYCRmBRv4QVh0TBKs mGelWiWmNRI5SdP3 PRM4zIQvdN0yrOywbtba rA8xHnr+LVp9x8tkpJAg AZ6uzDB8NO89MT87uXDl c0E2eZY2S6QeGATv fprvyxxhpTW8VGOwZJHg nP71Pd6zxQfwFi0bLZRm CJB2BUQyjQWqR2AwsV7t PrNqTSPfYGLeX4Gs vQFzURjcB889CNypDoJ3 EOLkucUrT7WoWGXxoHaq StM9f7M0Cm6JCB11QY75 LW40pARlt3O0pGP7 H7QrKZHipoitykbgaLB4 LVXkTFIplX91Fp1dhAsj Zq4kDHKrIXJ5NTCzcALv U9QwzC2hOuYyBZCn FNImY5PojFZpBRxwS841 TLgoXqF3SGZphnHwO2Dt HVUzxIjvHcP4w4H9Yh3S Zn50KZ39FR38dERv p3M6qSQ3O5OyFZReintw btvweQW1OCUtFHVpeO19 Ct6cpOqwLf5wXPKjTNA0 DQEojXCiC2VzsD3o RjTpHUUnLEKeI8XjxISp OSjuP045GJygCyE9JKOf qoHxC1CcBLAmmWbxNiO2 h2F5Hw4WFLyjnnp7 O3WeHjsdoXQ+CK30PXTy MJ02nXSoeGDiy5ybfYm4 EvYrUAXjEGX8hZhlCWar k4LhMRJbQ27qfTWi c2U6 (more content not included)... Normal [facility] C Urineon 03-08-2022 Bacteria identified Cx [...] Locations R1: This test was performed at: [facility], [address] [place] [address], [address]- , [place], Normal [facility] Comment on above: Performed By: #### 2 [id number] ####[facility] [address] [place] [address] Reminderson 03-06-2022 Reminders - From: Lupis Turner To: EU - Clinical; Sent: 03/06/2022 14:52:59 EDT Show up: 03/09/2022 14:52:00 EDT Subject: UA micro, CX Reminder/Recall UA micro/culture done on 03/06/[address] [facility] URINALYSISOrdered By: Nazario doyle on 03-06-2022 [...] PM) Normal Negative [facility] UA Auto SS [place].plasma/Lithiu m.RBC (Bld) [Mass ratio] 0-3 /HPF Normal [...] [Mass/Vol] Negative (03/06/22 2:52 PM) Normal Negative [facility] [place] Auto SS Specific gravity (U) [Rel density] 1.015 *NA* (03/06/22 2:52 PM) Invalid Interpretation Code 1.005 - 1.030 [facility] [place]A Auto SS UA Spec Desc Random Urine (03/06/22 2:52 PM) Normal [facility] [place] UA Auto SS Urobilinogen Qn (U) 0.2015273 {Shan'U}/dL Normal 0.0 - 1.0 EU/dL [facility] [place]A Auto SS WBC Auto Ql (U) Negative (03/06/22 2:52 PM) Normal Negative [facility] [place] UA Auto SS WBC LM.HPF (Urine sed) [#/Area] 6-15 /HPF Invalid Interpretation Code 0-5/HPF [facility] [place] UA Auto SS Urinalysison 03-06-2022 Bacteria LM Ql (Urine sed) 2+ /HPF Abnormal Trace [facility] Comment on above: Performed By: #### 1 [id number] ####[facility] [address] [place] [address] Bilirubin Ql (U) Negative Normal Negative [facility] Comment on above: Performed By: #### 1 [id number] ####[facility] [address] [place] [address] Clarity (U) SL CLOUDY Abnormal Clear [facility] Comment on above: Performed By: #### 1 [id number] ####[facility] [address] [place] [address] Color (U) YELLOW Normal Yellow [facility] Comment on above: Performed By: #### 1 [id number] ####[address] [place] [address] Epithelial cells.squamous LM.HPF (Urine sed) [#/Area] 3-4 Normal 0-2 [facility] Comment on above: Performed By: #### 1 [id number] ####[facility] [address] [place] [address] Glucose Test strip (U) [Mass/Vol] Negative Normal Negative [facility] Comment on above: Performed By: #### 1 [id number] ####[facility] [address] [place] [address] Hemoglobin Ql (U) Negative Normal Negative [facility] Comment on above: Performed By: #### 1 [id number] ####[address] [place] [address] Ketones (U) [Mass/Vol] Negative Normal Negative [facility] Comment on above: Performed By: #### 1 [id number] ####[address] [address] [place].plasma/Lithiu m.RBC (Bld) [Mass ratio] 0-3 Normal 0-3 [facility] Comment on above: Performed By: #### 1 [id number] ####[address] [address] Mucus Ql (Urine sed) TRACE Normal [facility] Comment on above: Performed By: #### 1 [id number] ####[address] [address] Nitrite Ql (U) Negative Normal Negative [facility] Comment on above: Performed By: #### 1 [id number] ####[address] [address] pH (U) 7.5 [pH] Invalid Interpretation Code 5.0-9.0 [facility] Comment on above: Performed By: #### 1 [id number] ####[address] [address] Protein (U) [Mass/Vol] Negative Normal Negative [facility] Comment on above: Performed By: #### 1 [id number] ####[address] [address] Specific gravity (U) [Rel density] 1.015 Invalid Interpretation Code 1.005-1.030 [facility] Comment on above: Performed By: #### 1 [id number] ####[address] [address] Type of Urine collection method Random Urine Normal [facility] Comment on above: Performed By: #### 1 [id number] ####[facility] [address] [place] [address] Urobilinogen Qn (U) 0.2 {Shan'U}/dL Normal 0.0-1.0 [facility] Comment on above: Performed By: #### 1 [id number] ####[facility] [address] [place] [address] WBC Auto Ql (U) Negative Normal Negative [facility] Comment on above: Performed By: #### 1 [id number] ####[facility] [address] [place] [address] WBC LM.HPF (Urine sed) [#/Area] 6-15 Abnormal 0-5 [facility] Comment on above: Performed By: #### 1 [id number] ####[facility] [address] [place] [address] Consent for Procedure/Surger yon 02-26-2022 Consent for Procedure/Surgery [id number] 9#1.00CD:[address] [facility] RAD - MISCon 02-26-2022 RAD - MISC [id number] 8#1.00CD:[address] [facility] RAD - Ultrasound Reporton RAD - Ultrasound Report [id number] #1.00CD:[address] [facility] Ambulatory Visit Summaryon 0 02-25-2022 Ambulatory [...] JENNINGS, Kwadwo Andrade Where: [facility] Normal [facility] Patient Educationon 02-26-20 Patient Education Urology [...] these instructions at home: Medicines ? Take zhuu-mry-xkdjepg and prescription medicines only as told by [...] 04/13/2009 Document Revised: 03/13/2020 Document Reviewed: 03/13/2020 [employer] Patient Education ? 2019 [employer]. [facility] Urology Office/Clinic Noteon 02-25-2022 Urology Office/Clinic [...] urine The Urethra was dilated to: 18-30_ Lao with sounds. urethra bled. dry. Removal: Cystoscope [...] 06/27/2022 EDT [facility] [address] [place] [address]- Additional Instructions: Patient Education Kidney Stones, Bwuo-vt-Riht Devonte Nickerson personally scribed for Dr. Saez [...] Grandparent. Diagnostic Results Tests Reviewed: Reviewed UA. [facility] Comment on above: Result Comment: Elec tronically Signed By: SHAYNA JENNINGS, Kwadwo R\.br\Date and Time Signed: 02/25/22 15:21 EDT\.br\Electronically Co-Signed By: Devonte Echeverria\.br\Date and Time Co-Signed: 02/25/22 15:19 EDT Pre-Certification Formon Pre-Certification Form [id number] 0#1.00CD:127 [facility] Reminderson 02-10-2022 Reminders - From: Kristyn Echeverria MA To: EU - Clinical; Sent: 02/04/2022 16:03:36 EDT Show up: 02/08/2022 16:03:00 EDT Subject: Urine Culture Reminder/Recall Urine culture Pt is currently . ANNITA addressed [facility] C Urineon 02-07-2022 Bacteria identified Cx [...] Locations R1: This test was performed at: [facility], [address] [place] [address], [address]- , [place], Normal [facility] Comment on above: Performed By: #### 2 [id number] #### [facility] [address] [place] [address] Performed By: #### 2 [id number] ####[facility] [address] [place] [address] Coding Summary.on 02-07-2022 Coding Summary. CD:[id number] Gh0bWw+PGhlYWQ+PE1FV XTjN12afMVarZ5VK5tDL C7YSXFQKXHMMT5HFS7oc BB3BIojO8YgubSc JzuznISlEI60UTs6DMT5 zEtnIJswkY5jmLQwQ5l9 UuRaEM12hW15ZSvzAVRy EeI9PkMtabekbSPh X3lvTwTykRVvHqe+PHRh YmxlIHdpZHRoPScxMDAl MpQezQwhPB5jGa5zHRRf LWNvbGxhcHNlOiBj e8ioKMCuIIynBF9ohYel V6BdkWK6DGGtk7d1Iu55 dHI+VEMkWVF6vCasHFeg w900LwJem6gvOLG5 gALcTTozMOA8R39zm1E8 ESBtDKXhZGD9tPN5nY7e vRuyoayxE3LkiHTiGzK5 JML6vINfbK9upLcn fvrinF3sYfi+K72ZGH9A MNNWHK6HVny2I9QpVexz dHI+NO91JOQuUZ02qRQt xCDwe8tbwGf1XqNz IKDaVFT3qPqgIQgzu6Th YWQsQ00zmBDdm7G0JJAv sZoabLPkEoUvjJC8tH3h JPrripcmj7rqxmvx Dccxr4ocha08wT74K76t DLtaDXTnQPN1MKPcPYEe pNrgzg0tfN9sGy4+IDxj z4pze1bkxGg0IjNu NYAlarZchPybJCE6i0Zg Ls34F4XvxRvfr3FgQjp5 oi73mCTtn9D9uSX4HUjv SUVokR0fGTrvMcZ7 SYTgQbGazX04dJBtULsv Nu9fhPuexSnzVZ9tAZXl okyuBUNuvW0qBYUoiJNt tYvrWM0qXUBqapgn e072SxUgSLD2VXXudXCp V6OtdD7qLuJdXQSvKLGh E6IomEBaJJtlH050MLfq WfU4CDGyxcXaT8Xa EDZdgLjvZuY9c8L7Dl2O v6AbgxooNUE5XNfhQDQt EyPbWyJhWkN6F8CfKew6 TRFymNleDN8dX2Nu NHTveguamcscdFH0ZSOd ZFNtcF26jTXoOBktXj9i h0X2n118AABvQPXssJ57 Ps2lzYtzYKVqxGRZ yJ1isqxrd1qgpkbgOoAo AZKbEZz2VUc5NUAojHbr AxDnRRO5NsN2IUG5oLSu lX7ifWldikskeJ5e Oyc+U65htP3xCMJ5DPH6 pjueKEDklkIzBB47RR09 A7SwMzpceUJuaQL+PGRp ijFvqFdbPO5gGaKp a0qcc8GxLBotS4VaHMIi LCraMuf4NJBjPTE8eMI0 mS2vHITbMEejq9H2wLQ5 V1EsgoKhbm7by3hw WHAbDTtaP84zoRCvt9C0 GCZeaMY0DBCxjLwjGuLz oZ32Yuo+HIRucPuso7Tp Grfpe6tsh0ygkJg0 IjMwJSIgdmFsaWduPSJ0 p8PbJp94A34tOYjjNGXy TSDsZXAcAHYoePkxxo4z zP9iSv7+PGNvbCB3 iIU6oS1dNPSyRrZ5IElh X329QpDqsAGwJplnh2qj t0qqpRm2BgPhEUUcewGv zXrxFIB8a5RvKw44 Q56gNCddLBSnHMGpFMQk FTLbgTmeaf6hvL7kIb2+ FQ5zg1soan87eK47uXS+ LPUvRGN0lZbiSWzy DWAyfS7tFEjlScY7YCNn IrZjrX14tUNdAFhmLe0g aEdvqPbkNS4iJYNgydqc f672CfMue2gdPVSo iNOjXPljAWF9Z61gp3A6 BQKvQZSyXAZ4yBE0hA7j bGlnbjogbGVmdDsgdmVy rLnpBLzzPQfoO810 IHRvcDsnPlBhdGllbnQg XoRtVUc7J8FzKsf1AMOt eMroCV2snQWeGKfqGl4p eRluqWkdML7wMWZu wvqeo808LuZjo3zfTJAr rBZiCKzuJBH5Y31ok2D3 SIDqXGMdGCP4qGL2kP5l bGlnbjogbGVmdDsg ihXnvNglKHcuOTrjN745 IHRvcDsnPkJpcnRoIERh qTR3ZG65WS11gLOmz5B0 lTB4W4QeSJEgkxqn cahiyXG1OZZvHTNwzJ73 Bs3shGpmFr4qVBCdTDA0 ULMpqURdK0CvwX3dWnPb IFBvQIMaS3NweVFy ALzsO122HArkDsC5ZZSu pgWuA3NcVTNtgOlqZzC8 m0B4Hy1IK6U0EN62JV51 bZEcz4H6jEA7J6Dz GGVtxpocsiqavBG2TZVr YZSatL74Vy7bfOohIb7s YRDfMOB4DOGzmOWoE7Bb qO2wWbXzMFEzZMAv L0TqtBDaUEgkD005TXvj MzX4EYIcfyAiS9RwRQUr uYntXxP2p4D9Zh1MPBt9 XZ45MY67iETzo6F6 xSP9G2YgTYSpruhuhahe dCT4WNOkHHRxsK20Mb2c aRceYd4xAUThZMO2ICDy hAXxZ4VuyS0yXsZt GDGuJGSvJ6OqbRNpURxq M085AExuNhO1XABysgHo I7XlNQDvnQdvWvL1v9P8 Op7QOWBjSI32ZNC5 kCF6ER59QA72C9SkFors dGFibGU+PHRhYmxlIHdp ZHRoPScxMDAlJyBzdHls VG3sFw3wMXBsRNGd pXgieHTnPoXvo7alICJp LScxZE6blRrzN7BjfUM6 RHCdt0u2Rc55A49xN2Iu dXA+RHBgwST9qKM6 sH4pUkYeTdS6MSlvC439 ZyIzkPHbLkubr7dji5si pBa2TdT0UYRajfMgwAxo CEW4t1AsBg99W86x IHdpZHRoPSIxNSUiIHZh sPktxs9ugI1lNx1+PGNv iBJ7nAV8eX9eFdAbFcT1 OZjqG773WlWpdWVj Mnfem4fpw1uufOw7McNz SFKufvYrrNdbKII5r1Zd Tg76G4TpwBbnj8DbXao5 ub64sHDmy6Z1oGS5 W3AvXYSgmssqdXHzjCwh QZ0iYMAyonivHHFqoY7h AAYoR2x3LzCsEeX9IWzh Z0NgouF0MJGnzWRb LXmlOGT4P74cc7C9JHYu WKRcCNQ8rKP6wB9stFtd bjogbGVmdDsgdmVydGlj FCdiUAhaX383NZUn zEnmVQCryK1dYQYbxJIu zOqxRU0rEDCzrzvdKl7B MUWLRPGWDZ7QFRbpvGR+ BUVvMIT2hJnySRky LJNwvC8mQCAyA6s1IwQe AoX6VShtG9YkEBRakxtt Jf69mJ7qMpObMbB2OYli G0QgqmU0SWPqrCYw AUoiDDX0R01hb8Q5WEMq GHWrUGU9yCT2sD9jzYbx bjogbGVmdDsgdmVydGlj GUxcHZibK534AXVs aEaxQiS1JsU4IlP2HII2 L9SrDdm7DYSzcMewKR3o wGJsDDkiHq8lzMfjxRjy HK7iLTKhtrdcDPYb zN4vNQXdnHRqoTkcEA6k YJWqpvxib985PrHsPRI4 EWAvqZJmO6BgmU0mUuGf OCSvEPHzT0YuwFSn LYkuG306ETsvSiE5GSLx rqPbA9EhAVQiqNhgVdT7 o6K1Yr2jUSVPWCPsiqiy dGQ+LJOxWEC2xCgg WFvsTUQstB6oGZNyG6l8 VxJgCkD8ABzsE7IuMHMt bxcbWk91tM9qSmJuSmY6 WDjxJ3AmaiJ1BQFz xLTpYHtrIEU5C10ns1D3 OPKbYHLhNYF2rLT7tQ4m bGlnbjogbGVmdDsgdmVy xPjsOFvxXEmsJ479 IHRvcDsnPkZlbWFsZTwv dGQ+HBIcUKX2jZltLJfg MFIroX8gPQMsW2d0RgUj SoB9GOakB0IcHQMx adnrQu57cU7oDbHeNsB2 INhpW0YpbiB0TMRmaLEg XShlWKP9C89bl8R1FCHw PRAnCGN2lOY4zJ7i bGlnbjogbGVmdDsgdmVy rPzgQTpgUGrrQ508YHNb pXvfJrbmKmNQag3oSA3k ZjwvdGQ+GA37rx99 H5NvWmswMww1WLCkLTI8 kUP7tP2pJKInVXemj9A9 mZJ2T7EdmbYazl2pr9hb QVLvGSoqS16ajCMs w6F4JDOyfLL9CLTosGmd MlZehZ30Buu+PGNvbGdy h3CmWryeo5oop9rpxHu2 IjMwJSIgdmFsaWdu BYH5o1QfVt29N69kTDln ZHRoPSIzMCUiIHZhbGln uj1ytB8qUn9+PGNvbCB3 rWE2sD3aYyVfSlE6 YQhfG626MpTfyMUyFbvz h7yub6wctEg1FbPgNDPr ucImkFnlSJR4f4UrVk02 O3LdrGrbs0RzNrj5 hc65oCLpu2T7fVK6P2Xi GHEwrxeluNNsgBniIU9g VBCuyvaiULOgiU7qASYw Z0y9NlLbTzY7AUez J1JvzhQ4KRGwkJXkMBZi lQAMkY5iaghub8pasykh RdImSWHaSCg5TFp3CYNd hXreZtVlDUK6EhO2 ANF2jEPugR2agOymecnn xU7bDif+KYv6n3mjcQEm KW3jzRR5CC07CW83ePJa x9R4nTR8C1HsNYPp bizacxuueVB9WZJrCSYf dI92Hz2snDzxDq9bSEAa SOA4DOLddIZmA4OxzV5y FfIhWJPmYKGiF5Wj tIPzBQspW857YXklOaK4 SJJbqbDdI9TaLMUdsQtl LbF5q1O5Mm8FSQ89EQ52 WK56uEFnt7H7mDC1 B5RiWMYaenjmsozsrTT7 AEJxEZMqhI82Ek5jsOwb Nk2dRPHtLGW8GFCnpXXc Q6JyyV9qNrGvMZBo XZElS3UfjUFtTXzhC105 IJmpSzJ2VYTucmWoN9Pf VRUfnDhcHmT9t0K7Vy9I Sw68OQ92FS81mJGe b0T2aBJ2D7PqGKOtpkyi txncmZF3ILVvLROgiZ69 Bs0qpTqrDx2hDWWsNCO2 DFVfeXAxQ2TmrT6x UjBuSFJjFJZtQ0PofYPw YZpuO582CXohQhB1UCTe niOkW9HbFUBnlKnkGfP7 w1F1Pc1NYEdeeyy5 R3NjSmzpbEP+AA65MFLf VP97cTIbrCUaq6xqqUg4 HlEeBJSrIMQ8bAjdCTyr w8PtBWDxV48ovGFc c2U6 (more content not included)... Normal [facility] US renal BIon 02-07-2022 US renal BI [facility] [place] [address] Ultrasound Report Signed Patient: Jessa Chatman MR#: [id number] 9 : 1985 Acct:[id number] Age/Sex: 36 / F ADM Date: 02/07/22 Loc: Room: Type: [facility] Attending Dr: Saida Abad PA-C Ordering Provider: [...] Mark Stark M.D.02/07/2022 3:24 PM Dictation Location: [place] [address] Tech: Saida Gilliland Transcribed By: KARI 02/07/22 1524 Dictated By: Mark Stark DO 02/07/22 1522 Signed By: 02/07/[address] [facility] XR KUBon 02-07-2022 XR KUB [facility] [place] [place] [address] [place] [address] XRay Report Signed Patient: Jessa Chatman MR#: [id number] 9 : 1985 Acct:[id number] Age/Sex: 36 / F ADM Date: 02/07/22 Loc: Room: Type: [facility] Attending Dr: Saida Abad PA-C Ordering Provider: [...] Mark Stark M.D.02/07/2022 3:13 PM Dictation Location: [place] [address] Transcribed By: KARI 02/07/22 1513 Dictated By: Mark Stark DO 02/07/22 1512 Signed By: 02/07/[address] [facility] Patient Educationon 02-05-20 Patient Education Pharmacology [...] Trouble breathi (more content not included)... Normal [facility] Urology Office/Clinic Noteon 02-04-2022 Urology Office/Clinic Note Chief Complaint referred for recurrent UTI. HPI Staff Jessa is here today as a new patient referred by Herve [employer] for recurrent UTI.Started Cleocin 300mg on 12/24/21 [...] on Cleocin x 7d in Dec per [employer]. pt has not noticed any connection with [...] baths & hot tubs, avoid any scented [employer] products, urinate after sexual activity, etc) PVR [...] E&M of New Patient Moderate 45-59 Min 84037 Urnls Dip Stick Auto w/o Microscopy POC 31030 US Renal XR Abdomen 1 View Orders: [...] Protein Urine Dipstick: Negative (02/04/22 14:41:00) Specific [place] Urine Dipstick: 1.025 (02/04/22 14:41:00) Urine Appearance Urine Dipstick: (more content not included)... Normal [facility] Comment on above: Result Comment: Elec tronically Signed By: SAIDA ABAD PA-C\.br\Date and Time Signed: 02/04/22 16:12 EDT Vital Signs Date Time Vital Sign Value Performing Clinician Facility 06-25-2022 09:14-0400 Blood Pressure Location Jalen Mor[facility] 06-25-2022 09:14-0400 Diastolic blood pressure 86 mm[Hg] Jalen Mora [facility] [employer] 06-25-2022 09:14-0400 Heart rate 77 /min Jalen Mora [facility] 06-25-2022 09:14-0400 Systolic blood pressure 130 mm[Hg] Jalen Mora [facility] [employer] 06-18-2022 10:45-0400 Body height 162.56 cm Devin Lam Other [employer] [facility] Other 06-18-2022 10:45-0400 Body mass index (BMI) [Ratio] 28.49 kg/m2 Devin Lam Other [facility] [employer] [facility] Other 06-18-2022 10:45-0400 Body weight 75.3 kg Devin Lam Other [facility] Other 06-18-2022 10:45-0400 Diastolic blood pressure 76 mm[Hg] Devin Genaro Other [employer] [facility] Other 06-18-2022 10:45-0400 Respiratory rate 16 /min Devin Lam Other [employer] [facility] Other 06-18-2022 10:45-0400 SaO2% (BldA) [Mass fraction] 99 % Devin Lam Other [facility] Other 06-18-2022 10:45-0400 Systolic blood pressure 118 mm[Hg] Devin Lam Other [facility] Other 05-13-2022 16:00-0400 Body height 162.56 cm Devin Lam Other [facility] Other 05-13-2022 16:00-0400 Body mass index (BMI) [Ratio] 29.73 kg/m2 Devin Lam Other [employer] [facility] Other 05-13-2022 16:00-0400 Body weight 78.56 kg Devin Lam Other [employer] [facility] Other 05-13-2022 16:00-0400 Diastolic blood pressure 68 mm[Hg] Devin Lam Other [employer] [facility] Other 05-13-2022 16:00-0400 Respiratory rate 16 /min Devin Lam Other [employer] [facility] Other 05-13-2022 16:00-0400 SaO2% (BldA) [Mass fraction] 97 % Devin Lam Other [employer] [facility] Other 05-13-2022 16:00-0400 Systolic blood pressure 114 mm[Hg] Devin Lam Other [employer] [facility] Other 04-16-2022 10:30-0400 Body height 162.56 cm Devin Lam Other [employer] [facility] Other 04-16-2022 10:30-0400 Body mass index (BMI) [Ratio] 30.72 kg/m2 Devin Lam Other [employer] [facility] Other 04-16-2022 10:30-0400 Body weight 81.19 kg Devin Lam Other [employer] [facility] Other 04-16-2022 10:30-0400 Diastolic blood pressure 80 mm[Hg] Devin Lam Other [employer] [facility] Other 04-16-2022 10:30-0400 Respiratory rate 16 /min Devin Lam Other [employer] [facility] Other 04-16-2022 10:30-0400 SaO2% (BldA) [Mass fraction] 99 % Devin Lam Other [employer] [facility] Other 04-16-2022 10:30-0400 Systolic blood pressure 130 mm[Hg] Devin Lam Other [employer] Other Encounters Encounter Date Encounter Type Care Provider Facility Start: 11-26-2023 End: 11-26-2023 ambulatory MOUNA LUIS M Not Available Start: 11-16-2023 End: 11-16-2023 ambulatory MOUNA LUIS M Not Available Start: 10-28-2023 End: 10-28-2023 ambulatory MOUNA ANGEL Not Available Start: 10-23-2023 End: 10-23-2023 ambulatory ARACELI [facility] Start: 10-08-2023 End: 10-08-2023 ambulatory MOUNA ANGEL Not Available Start: 09-23-2023 End: 09-23-2023 ambulatory MOUNA ANGEL Not Available Start: 04-15-2023 End: 04-15-2023 ambulatory Devin Lam Other [employer] Other Start: 04-15-2023 Telephone encounter Devin Lam [facility] Start: 01-19-2023 End: 01-19-2023 ambulatory Devin Lam Other [facility] [employer] Other Start: 01-19-2023 Telephone encounter Devin Lam [facility] Start: 12-19-2022 End: 01-07-[address] MOUNA ANGEL . Facility:[facility] Start: 12-05-2022 End: 12-06-[address] MOUNA ANGEL . Facility:[facility] Start: 11-19-2022 End: 11-19-[address] MOUNA ANGEL . Facility:[facility] Start: 11-16-2022 Encounter for preprocedural laboratory examination DR MOUNA ANGEL . [facility] Start: 11-13-2022 End: 11-14-[address] [...] 07-03-2022 End: 07-03-2022 Patient encounter procedure Dasia SmallsChante Azael [facility] Start: 06-25-2022 End: 06-25-2022 Patient encounter procedure Jalen Mora [facility] Start: 06-18-2022 End: 06-18-2022 ambulatory Devin Kuns Other [employer] Other Start: 06-18-2022 Office outpatient vi sit 15 minutes Devin Kuns [facility] Start: 05-13-2022 End: 05-13-2022 ambulatory Devin Kuns Other [employer] Other Start: 05-13-2022 Office outpatient vi sit 15 minutes Devin Kuns [facility] Start: 04-16-2022 End: 04-16-2022 ambulatory Devin Kuns Other [employer] Other Start: 04-16-2022 Office outpatient vi sit 25 minutes Devin Kuns [facility] Start: 04-15-2022 End: 04-15-2022 Lab Drop off SAIDA ABAD [facility] Start: 04-15-2022 End: 04-15-2022 Patient encounter procedure Kwadwo SAEZ [facility] Start: 03-06-2022 End: 03-06-2022 Lab Drop off Kwadwo SAEZ [facility] Start: 03-06-2022 End: 03-06-2022 Patient encounter procedure Ravinder MCCAULEY [facility] Start: 02-04-2022 End: 02-04-2022 Lab Drop off SAIDA ABAD [facility] Procedures Date Procedure Procedure Detail Performing Clinician Start: 11-09-2013 Colonoscopy and biop sy of colon Kwadwo SAEZ Start: 11-09-1989 History of tonsillectomy Kwadwo SAEZ Start: 11-09-1989 Tonsillectomy SAIDA ABAD Start: 11-09-1989 Tympanotomy SAIDA [place] Immunizations Immunization Date Immunization Notes Care Provider Rao rincon 11-09-2020 SARS-CoV-2 mRNA (tozinameran 5y-11y) vaccine Jalen Mora [facility] Comment on above: Result Comment: [facility] 03-10-2015 tetanus toxoid, reduced diphtheria toxoid, and acellular pertussis vaccine, adsorbed Kwadwo SAEZ [facility] Comment on above: Reason for Medicatio n: Other (see comment) NEGATED: Highlighted row has not occurred!02-19-2019 influenza, seasonal, injectable Patient Objection Devin Lam Other [employer] Other Payers Date Payer Category Payer Unknown [id number] 2.16.84 [id number] 1985 Unknown [id number] 2.16.84 [id number] 1986 Unknown [id number] 2.16.84 0.1.716531.3.579.2.593 1986 Unknown [id number] 2.16.84 0.1.531910.3.579.2.593 1986 Unknown [id number] 2.16.84 0.1.307110.3.579.2.593 1986 Unknown [id number] 2.16.84 0.1.949044.3.579.2.593 1986 Unknown [id number] 2.16.84 0.1.636652.3.579.2.593 1986 Unknown [id number] 2.16.84 0.1.696665.3.579.2.593 1986 Unknown [id number] 2.16.84 0.1.491672.3.579.2.1259 1986 Unknown [id number] 2.16.840 .1.045707.3.579.2.1259 1986 Unknown [id number] 2.16.840 .1.752966.3.579.2.1259 1986 Unknown [id number] 2.16.840 .1.343294.3.579.2.1259 1986 Unknown [id number] 2.16.840 .1.496474.3.579.2.1259 1959 Unknown [id number] 2.16. [id number] 1959 Unknown [id number] Social History Date Type Detail Facility Start: 02-04-2022 End: 02-25-2022 Tobacco smoking status Never smoked tobacco (finding) [facility] Tobacco smoking status Never [facility] Sex Assigned At Female [facility] Functional Status Date Assessment Result Facility 06-25-2022 Functional Status N/A [facility] Clinical Notes 02-04-2022 to 10-23-2023 Note Date & Type Note Facility 10-23-2023 Note F/U with OB and mate rnal medicine as scheduled [facility] 10-23-2023 Note UTP CARDIOLOGY PROGR ESS NOTE HPI: Jessa Chatman is a 38 y.o. female here for tachycardia during Patient here per Dr. Angel for tachycardia in . She is currently 32w5d along. 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 10-23-2023 Note Patient here per Dr. Angel for tachycardia in . She is currently 32w5d along. FEED IN WORKER started her on metoprolol tartrate 25mg daily a few weeks ago, which as helped with palpitations. HR gets as high as 147 at rest sometimes. This issue went away after the of her last baby. Review of Systems Cardiovascular: Positive for dyspnea on exertion. Neurological: Positive for light-headedness. All other systems reviewed and are negative. [facility] 04-15-2023 Evaluation note Encounter Date Diagnosis Assessment Notes Apr, Spontaneous rupture of tympanic membrane of right ear concurrent with and due to acute suppurative otitis media (ICD-10 - H66.011) [employer] Other 01-11-2023 NoteOPERATIVE NOTE OPERATION DATE: 11/19/2022 PROCEDURE: Suction D AND C. PREOPERATIVE DIAGNOSIS: Missed first trimester. POSTOPERATIVE DIAGNOSIS: Missed first trimester. ANESTHESIA: General. SURGEON: Mouna Angel D.O. CREW LEADER: None. FINDINGS: Products of conception. SPECIMEN: Products [...] products of conception were removed using a 9-Lao suction curette. Excellent hemostasis was noted. The patient tolerated the procedure well. Sponge, lap, and needle counts were correct x 2. All instruments were then removed from the patient's vagina. The patient was taken to the Recovery Room in stable condition. [id number] Evaluation + Plan note Diagnostic Tests Pending * UTI ([facility]) 07/03/22 [facility] 08-17-2022 Hospital Discharge instructions Patient [...] Follow these instructions at home: Medicines Take nodn-nbz-mytyoqs and prescription medicines only as told by [...] Kidney Foundation (NKF): www.kidney.org Urology Care Foundation (F): www.urologyhealth.org Contact a health care provider if: [...] 10/26/2006 Document Revised: 03/13/2020 Document Reviewed: 03/13/2020 [employer] Patient Education 2020 [employer]. 06/25/2022 09:59:21 Urinary Tract Infection, Adult Urinary [...] Treatment for this condition includes: Antibiotic medicine. Zodo-onf-dmzccex medicines to treat discomfort. Drinking enough water [...] Follow these instructions at home: Medicines Take tdcc-eik-dhisulc and prescription medicines only as told by [...] 08/05/2006 Document Revised: 10/13/2019 Document Reviewed: 05/05/2019 [employer] Patient Education 2020 [employer]. [facility] 08-10-2022 Evaluation note* Encounter Date [...] that she can go off it completely. [employer] Other 07-05-2022 Evaluation note* Encounter Date Diagnosis [...] calf. I recommened a consult with a communications equipment installer. Patient would like to hold off on the referral for now. [employer] Other 06-08-2022 Evaluation note* Encounter Date Diagnosis [...] or any other dysrhythmias. She voices understanding [employer] Other [id number] Evaluation + Plan note Diagnostic Tests Pending * Urine [facility] Future Appointments Appointment Date:07/02/2022 02:45:00 PM Scheduled Provider:Kwadwo SAEZ MD Location:[facility] Appointment Type:URO Office Visit [facility] Evaluation + Plan note Future Appointments Appointment Date:07/02/2022 02:45:00 PM Scheduled Provider:Kwadwo SAEZ MD Location:[facility] Appointment Type:URO Office Visit Diagnostic Tests Pending * Urine Culture [facility]06[facility]22 [facility] Future Appointments Appointment Date:07/02/2022 02:45:00 PM Scheduled Provider:Kwadwo SAEZ MD Location:[facility] Appointment Type:URO Office Visit Diagnostic Tests Pending * Urine Culture [facility]15[facility]22 [facility] note[facility] InformationNort [employer] Other History general Narrative - Reported* Type Description Date Medical History Anxiety Hospitalization History childbirth 2014 [facility] [employer] Other Hospital course Narrative No data available for this section [facility] No data available for this section [facility] No data available for this section [facility] Summary Purpose Family History No Family [...] acute suppurative otitis media (H66.011) Referral Organization [facility] [place] Referring Provider First Name Devin Referring Provider Last Name Genaro Referring Provider Specialty Family Prac brittanie Referred Organization [facility] Referred Provider Luis MiguelAldo Referred Address ,[place], [place],[address] Referred Provider Specialty Otolaryngolo gy Referral Priority Routine General Notes Higinio Asher 023 12:56:47 PM >Received today. [facility] request us to send the referral and they will call and schedule patient. Referral was fax Clinical Notes Office [phone] Additional Source Comments INFORMATION SOURCE (unrecogn ized section and content) DATE CREATED AUTHOR 02/26/2022 [employer] [facility] DATE CREATED AUTHOR AUTHOR'S ORGANIZ ATION 07/04/2022 [facility] DATE CREATED AUTHOR AUTHOR'S ORGANIZ ATION 07/05/2022 [employer] [facility] DATE CREATED AUTHOR AUTHOR'S ORGANIZ ATION 01/21/2023 [facility] DATE CREATED AUTHOR AUTHOR'S ORGANIZ ATION 10/25/2023 [facility] DATE CREATED AUTHOR AUTHOR'S ORGANIZ ATION 11/27/2023 [facility] EPIC REASON FOR VISIT (unrecogniz ed section and content) weight management/ UTI4 week follow up-weight mgmt.1 month Follow up weight managementClinicalClinical Care Team (unrecognized sect ion and content) Personnel Name: DEVIN LAM DO Address: [address] [place] [address] Personnel Name: DEVIN LAM DO Address: [address] [place] [address] FOR RECORDS PERTAINING TO PATIENTS WHO ARE [...] BE BASED ON THE PRIMARY CLINICAL RECORDS. [facility]. provides no warranty or guarantee of the accuracy or completeness of information in this document.
[2023-11-30 08:36] VITALS: BP 124/77; PULSE 87
--- NOTE | 2023-11-30 08:51 | US_ITS ---
[address] [address] Patient Name: BONILLA KUMAR MRN: [id number] date: 1985 Sex: F Assigned Patient Location: [facility] Current Patient Location: [facility] Accession/Order Number: [id number] Exam Date: 11/30/2023 08:54 Report Date: 11/30/2023 09:46 At the request of: MOUNA ASENCIO Procedure: US OB BPP w non-stress EXAMINATION: US OB BPP w non-stress HISTORY: Multigravida of advanced maternal age O09.523 COMPARISON: No relevant comparison available. TECHNIQUE: Ultrasound biophysical profile was performed in the radiology department. non-reactive stress testing was performed by nursing staff in the birthing center. FINDINGS: BREATHING MOVEMENTS: 2.0 GROSS BODY MOVEMENTS: 2.0 TONE: 2.0 QUALITATIVE AMNIOTIC FLUID VOLUME: 2.0 PRESENTATION: CEPHALIC HEART RATE: 128.6 bpm H.B./min AMNIOTIC FLUID VOLUME: 15.7 cm cm GESTATIONAL AGE: 38 weeks 0 days CONCLUSION: Total biophysical profile score: 8.0 Electronically authenticated by: ERROL VELA Date: 11/30/2023 09:46
--- NOTE | 2023-11-30 08:52 | US_ITS ---
[address] [address] Patient Name: BONILLA KUMAR MRN: [id number] date: 1985 Sex: F Assigned Patient Location: [facility] Current Patient Location: Accession/Order Number: [id number] Exam Date: 11/30/2023 08:54 Report Date: 11/30/2023 10:51 At the request of: MOUNA ASENCIO Procedure: US OB umbilical artery EXAMINATION: US OB umbilical artery HISTORY: Multigravida of advanced maternal age O09.523 COMPARISON: No relevant comparison available. TECHNIQUE: Duplex Doppler evaluation of the umbilical arteries. FINDINGS: position: Cephalic presentation, longitudinal lie Placenta: Posterior. The umbilical arteries: 2 Heart rate: 121 bpm Proximal umbilical artery: PSV/EDV: 92/32 cm/s. Resistive index 0.65. Ratio 2.8 Mid umbilical artery PSV/EDV: 86/50 cm/s. Resistive index 0.42. Ratio 1.7 Distal umbilical artery PSV/EDV: 83/45 cm/s. Resistive index 0.46. Ratio 1.9 Forward flow identified throughout diastole Clinical age: 38 weeks 0 days Clinical LEON: 12/14/2023 US/US OB umbilical artery IMPRESSION: Class 0, normal Umbilical Artery: Class 0 = Normal umbilical artery blood velocity Class I = increased RI or PI, but still forward flow in diastole Class II = Absent end diastolic flow (AEDF) Class III = Reversal of end diastolic flow (REDF) Resistive Index (RI)<1 Systolic/Diastolic ratio (S:D): An S:D ratio of 2-3 after 34 wks is normal Systolic/Diastolic ratio (S:D): Age 16: 3.01 for the 10th percentile, 4.25 for the 50th percentile, 6.07 for the 90th percentile Age 20: 3.16 for the 10th percentile, 4.04 for the 50th percentile, 5.24 for the 90th percentile Age 24: 2.70 for the 10th percentile, 3.50 for the 50th percentile, 4.75 for the 90th percentile Age 28: 2.41 for the 10th percentile, 3.02 for the 50th percentile, 3.97 for the 90th percentile Age 30: 2.43 for the 10th percentile, 3.04 for the 50th percentile, 3.80 for the 90th percentile Age 32: 2.27 for the 10th percentile, 2.73 for the 50th percentile, 3.57 for the 90th percentile Age 34: 2.08 for the 10th percentile, 2.52 for the 50th percentile, 3.41 for the 90th percentile Age 36: 1.96 for the 10th percentile, 2.35 for the 50th percentile, 3.15 for the 90th percentile Age 38: 1.89 for the 10th percentile, 2.24 for the 50th percentile, 3.10 for the 90th percentile Age 40: 1.88 for the 10th percentile, 2.22 for the 50th percentile, 2.68 for the 90th percentile Age 41: 1.93 for the 10th percentile, 2.21 for the 50th percentile, 2.55 for the 90th percentile Age 42: 1.91 for the 10th percentile, 2.51 for the 50th percentile, 3.21 for the 90th percentile Uteroplacental Artery: Resistive Index (RI): Normal=<0.55 High Resistance=Bilateral notches (after 26 wks) and RI>0.55. Unilateral notches (after 26 wks) and RI>0.65 Systolic/Diastolic ratio (S:D) = 2-3 is normal after 32 weeks. Electronically authenticated by: ERROL VELA Date: 11/30/2023 10:51
== END 2023-11-30 09:25 | disposition home or self-care (01) ==
LOC: US 07:39 → FBC 08:32
PROVIDERS: Visit Provider Obstetrics & Gynecology
DX: O09.523 Supervision of elderly multigravida, third trimester (principal); Z3A.38 38 weeks gestation of pregnancy
CPT/HCPCS: 76818; 76820

== ENCOUNTER 2023-12-03 05:29 | Inpatient (IN) | payer BC, SELFPAY ==
[2023-12-03] VITALS (28 sets, daily range): BP systolic 104–140; BP diastolic 69–95; PULSE 69–94; RESP 16–23; TEMP 36.3–37.1; O2SAT 97–99
--- OUTSIDE RECORDS SUMMARY | 2023-12-03 05:33 | XMS_ITS | CCD ---
Author Name Unknown Address [address] [place] [address] Organization [facility] Care Team Providers Care Supervisor Feed House Name Role Phone DEVIN LAM Primary Care [...] Translations: [acetaminophen-hy drocodone] Drug Allergy Nausea (finding) [facility] (13 sources) Banana Extract; Translations: [Banana] Drug Allergy 09-10-20 20 Itching (finding) [facility] (8 sources) Melon; Translations: [melon] Drug allergy 09-10-20 20 Itching (finding) [facility] (5 sources) Melon Propensity to adverse reactions Unknown [facility] Other (1 source) Acetaminophen / HYDROcodone Drug Allergy 09-10-20 20 [facility] (1 source) Acetaminophen / HYDROcodone; Translations: [HYDROCODONE-ACET AMINOPHEN] Drug Allergy 04-10-20 21 [facility] Repository Medications Current Medications Medication Drug Class(es) [...] Pharmacy: [facility] [id number] [facility], 162, cm, 02/25/22 14:21:00 EDT, [...] procedure, # 2 cap(s), Refills(s) 0, Pharmacy: [place] [id number] [address] [facility], 162, cm, 02/04/22 14:57:00 EDT, [...] Start: 03-09-2015 take 1 capsule by mo [facility] twice daily as needed for [...] 06/25/22 Status: Ordered take 1 capsule by [facility] once daily at bedtime Macrobid 100 [...] 10 day(s), 20 tab(s), Refill(s) 0, [facility] [id number] [facility], 162, cm, 02/25/22 14:21:00 EDT, [...] Range Facility Office Visiton 10-23-2023 Follow-up visit [id number] Jessa Chatman 1985 F Date Provider Department Center 10/23/2023 Abelino-ARACELI MCKENZIE CARD [facility] No family history on file Level of Service:99746 MD OFFICE/OUTPATIENT ESTABLISHED MOD MDM 30-39 MIN Normal [facility] PROGRESSon 10-23-2023 Beta HCG ( test) Ql [...] sugar. She voiced understanding of risks. Normal [facility] PREG QUANT HCGon 12-19-2022 HCG QUANT 5 mIU/mL Normal [facility] Comment on above: Performed By: #### P REGQNT #### [facility] [address] [place] [address] Dr. Fadi Meza HCG RANGE SEE BELOW Normal [facility] Comment on above: Result Comment: 5-50 0.2-1 WEEK 50-500 1-2 WEEKS 100-5,000 2-3 WEEKS 500-10,000 3-4 WEEKS 1,000-50,000 4-5 WEEKS 10,000-100,000 5-6 WEEKS 15,000-200,000 6-8 WEEKS 10,000-100,000 2-3 MONTHS Performed By: #### P REGQNT #### [facility] [address] [place] [address] Dr. Fadi Meza PREG QUANT HCGon 12-05-2022 HCG QUANT 43 mIU/mL Normal [facility] Comment on above: Performed By: #### P REGQNT #### [facility] [address] [place] [address] Dr. Fadi Meza HCG RANGE SEE BELOW Normal [facility] Comment on above: Result Comment: 5-50 0.2-1 WEEK 50-500 1-2 WEEKS 100-5,000 2-3 WEEKS 500-10,000 3-4 WEEKS 1,000-50,000 4-5 WEEKS 10,000-100,000 5-6 WEEKS 15,000-200,000 6-8 WEEKS 10,000-100,000 2-3 MONTHS Performed By: #### P REGQNT #### [facility] [address] [place] [address] Dr. Fadi Meza CBC AUTO DIFFon 11-19-2022 BASO # 0.0 103/ul Normal 0.0-0.1 [facility] Comment on above: Performed By: #### C VDTBH #### [facility] [address] [place] [address] Dr. Fadi Meza Basophils/100 WBC (Bld) 0.7 % Normal 0.2-2.0 [facility] Comment on above: Performed By: #### C VDTBH #### [facility] [address] [place] [address] Dr. Fadi Meza EO # 0.1 103/ul Normal 0.0-0.7 [facility] Comment on above: Performed By: #### C VDTBH #### [facility] [address] [place] [address] Dr. Fadi Meza Eosinophils/100 WBC (Bld) 2.1 % Normal 0.9-7.0 [facility] Comment on above: Performed By: #### C VDTBH #### [facility] [address] [place] [address] Dr. Fadi Meza Erythrocyte distribution width (RBC) [Ratio] 13.7 % Normal 11.0-15.0 [facility] Comment on above: Performed By: #### C VDTBH #### [facility] [address] [place] [address] Dr. Fadi Meza Hematocrit (Bld) [Volume fraction] 36.9 % Normal 36.0-48.0 [facility] Comment on above: Performed By: #### C VDTBH #### [facility] [address] [place] [address] Dr. Fadi Meza Hemoglobin (Bld) [Mass/Vol] 11.8 g/dL Critically low 12.0-16.0 [facility] Comment on above: Performed By: #### C VDTBH #### [facility] [address] [place] [address] Dr. Fadi Meza IG # 0.01 10e3/ul Normal 0.00-0.03 [facility] Comment on above: Performed By: #### C VDTBH #### [facility] [address] [place] [address] Dr. Fadi Meza IG % 0.2 % Normal 0.0-0.5 [facility] Comment on above: Performed By: #### C VDTBH #### [facility] [address] [place] [address] Dr. Fadi Meza LYMPH # 1.3 103/ul Normal 1.2-3.8 [facility] Comment on above: Performed By: #### C VDTBH #### [facility] [address] [place] [address] Dr. Fadi Meza Lymphocytes/100 WBC (Bld) 29.3 % Normal 20.5-60.0 [facility] Comment on above: Performed By: #### C VDTBH #### [facility] [address] [place] [address] Dr. Fadi Meza MANUAL DIFF REQ NO Normal [facility] Comment on above: Performed By: #### C VDTBH #### [facility] [address] [place] [address] Dr. Fadi Meza MCH (RBC) [Entitic mass] 28.4 pg Normal 26.7-34.0 [facility] Comment on above: Performed By: #### C VDTBH #### [facility] [address] [place] [address] Dr. Fadi Meza MCHC (RBC) [Mass/Vol] 32.0 g/dL Normal 29.9-35.2 [facility] Comment on above: Performed By: #### C VDTBH #### [facility] [address] [place] [address] Dr. Fadi Meza MCV (RBC) [Entitic vol] 88.9 fL Normal 81.0-99.0 [facility] Comment on above: Performed By: #### C VDTBH #### [facility] [address] [place] [address] Dr. Fadi Meza MONO # 0.5 103/ul Normal 0.3-0.8 [facility] Comment on above: Performed By: #### C VDTBH #### [facility] [address] [place] [address] Dr. Fadi Meza Monocytes/100 WBC (Bld) 10.6 % Normal 1.7-12.0 [facility] Comment on above: Performed By: #### C VDTBH #### [facility] [address] [place] [address] Dr. Fadi Meza NEUT # 2.5 103/ul Normal 1.4-6.5 [facility] Comment on above: Performed By: #### C VDTBH #### [facility] [address] [address] [address] Fadi Meza Neutrophils/100 WBC (Bld) 57.1 % Normal 43.0-75.0 [facility] Comment on above: Performed By: #### C VDTBH #### [facility] [address] [address] [address] Fadi Meza Platelet mean volume (Bld) [Entitic vol] 9.4 fL Critically low 9.5-13.5 [facility] Comment on above: Performed By: #### C VDTBH #### [facility] [address] [address] [address] Fadi Meza PLT 210 103/ul Normal 150-450 [facility] Comment on above: Performed By: #### C VDTBH #### [facility] [address] [address] [address] Fadi Meza RBC 4.15 106/ul Critically low 4.20-5.40 [facility] Comment on above: Performed By: #### C VDTBH #### [facility] [address] [address] [address] Fadi Meza WBC 4.3 103/ul Normal 4.0-11.0 [facility] Comment on above: Performed By: #### C VDTBH #### [facility] [address] [address] [address] Fadi Meza PREG QUANT HCGon 11-19-2022 HCG QUANT 35522 mIU/mL Normal [facility] Comment on above: Performed By: #### P REGQNT #### [facility] [address] [address] [address] Fadi Meza HCG RANGE SEE BELOW Normal [facility] Comment on above: Result Comment: 5-50 0.2-1 WEEK 50-500 1-2 WEEKS 100-5,000 2-3 WEEKS 500-10,000 3-4 WEEKS 1,000-50,000 4-5 WEEKS 10,000-100,000 5-6 WEEKS 15,000-200,000 6-8 WEEKS 10,000-100,000 2-3 MONTHS Performed By: #### P REGQNT #### [facility] [address] [address] [address] Fdai Meza US PREG <14 WKSon 11-19-2022 US PREG <14 WKS Obstetrical ultrasound, 1st trimester CLINICAL: Evaluate prior to scheduled DANDC. TECHNIQUE: Transabdominal and transvaginal obstetrical ultrasound was performed. FINDINGS: Comparison: Ultrasound 11/12/2022 There is a single intrauterine fetus. [place]-rump length is 1.81 cm, correlating with gestational age 8 weeks 3 days. No heart tones are detected. IMPRESSION: 1. Single intrauterine nonviable gestation. No heart tones detected, and no growth since previous ultrasound 11/12/2022. Electronically authenticated by: RUCHI FRANK Date: 2022-11-19 13:17 Normal [facility] PAP ACOG PANEL 2: 30 to 65on 11-16-2022 . . Normal [facility] Comment on above: Result Comment: Perf ormed at: WB Performed By: #### 4 [id number] #### [facility] [address] [address] [address] Fadi Meza Age Gdln ACOG Testing 30-65 Normal [facility] Comment on above: Performed By: #### 4 [id number] #### [facility] [address] [address] [address] Fadi Meza DIAGNOSIS: Comment Normal [facility] Comment on above: Result Comment: NEGA TIVE FOR INTRAEPITHELIAL LESION OR MALIGNANCY. Performed at: WB Performed By: #### 4 [id number] #### [facility] [address] [address] [address] Fadi Meza HPV Aptima Negative Normal Negative [facility] Comment on above: Result Comment: This nucleic acid amplification test detects fourteen high-risk HPV types (16,18,31,33,35,39,45,51,52,56,58,59,66,68) without differentiation. Performed at: =G Performed By: #### 4 [id number] #### [facility] [address] [address] [address] Fadi Meza HPV Genotype Reflex Comment Normal [facility] Comment on above: Result Comment: Crit eria not met, HPV Genotype not performed. Performed at: WB Performed By: #### 4 [id number] #### [facility] [address] [place] [address] Dr. Fadi Meza Methodology: Comment Normal [facility] Comment on above: Result Comment: This liquid based ThinPrep(R) pap test was screened with the use of an image guided system. Performed at: WB Performed By: #### 4 [id number] #### [facility] [address] [place] [address] Dr. Fadi Meza Note: Comment Normal [facility] Comment on above: Result Comment: The Pap smear is a screening test designed to aid in the detection of premalignant and malignant conditions of the uterine cervix. It is not a diagnostic procedure and should not be used as the sole means of detecting cervical cancer. Both false-positive and false-negative reports do occur. . Performed at: WB Performed By: #### 4 [id number] #### [facility] [address] [place] [address] Dr. Fadi Meza Performed by: Comment Normal [facility] Comment on above: Result Comment: [place], [employer] (ASCP) Performed at: WB Performed By: #### 4 [id number] #### [facility] [address] [place] [address] Dr. Fadi Meza Specimen adequacy: Comment Normal [facility] Comment on above: Result Comment: Sati sfactory for evaluation. Endocervical and/or squamous metaplastic cells (endocervical component) are present. Performed at: WB Performed By: #### 4 [id number] #### [facility] [address] [address] [address] Fadi Meza CHLAMYDIA/GONOCOCCUS TALAT (SW AB/URINE/PAPon 11-15-2022 Chlamydia trachomatis, TALAT Negative Normal Negative [facility] Comment on above: Performed By: #### C T/NGNA #### [facility] [address] [place] [address] Dr. Fadi Meza Neisseria gonorrhoeae, TALAT Negative Normal Negative [facility] Comment on above: Performed By: #### C T/NGNA #### [facility] [address] [address] [address] Fadi Meza VAGINITIS/VAGINOSIS DNA PROB Kel 11-14-2022 Shannon species Negative Normal Negative [facility] Comment on above: Performed By: #### V AGINT #### [facility] [address] [place] [address] Dr. Fadi Meza Gardnerella vaginalis Negative Normal Negative [facility] Comment on above: Performed By: #### V AGINT #### [facility] [address] [address] [address] Fadi Meza Trichomonas vaginalis Negative Normal Negative [facility] Comment on above: Performed By: #### V AGINT #### [facility] [address] [place] [address] Dr. Fadi Meza Covid-19 PCR (CVDTBH)on SARS-CoV-2 (COVID-19) RNA TALAT+probe Ql (Unsp spec) Not detected Normal NOT DETECTED [facility] Comment on above: Result Comment: This test is not yet approved or cleared by the [place] FDA. When there are no FDA-approved or cleared tests available, and other criteria are met, FDA can make tests available under an emergency access mechanism called an Emergency Use Authorization (EUA). The EUA for this test is supported by the Security Sales Consultant of Health and Human Service's (HHS's) declaration [...] SARS-CoV-2. Performed By: #### C VDTBH #### [facility] [address] [address] [address] Fadi Meza US PREG TVon 11-12-2022 [...] LUIS MANUEL VEGA Date: 2022-11-12 16:44 Normal [facility] CULTURE URINEon 09-01-2022 CULTURE URINE Culture Observations: LIGHT GROWTH OF MIXED GENITAL SIRIA. NO POTENTIAL PATHOGENS SEEN. Normal [facility] Comment on above: Performed By: #### U RCX #### [facility] [address] [place] [address] Dr. Fadi Meza UA RANDOMon 09-01-2022 Bilirubin Ql (U) Negative Normal NEGATIVE [facility] Comment on above: Performed By: #### U A #### [facility] [address] [place] [address] Dr. Fadi Meza Clarity (U) CLEAR Normal CLEAR [facility] Comment on above: Performed By: #### U A #### [facility] [address] [place] [address] Dr. Fadi Meza Color (U) YELLOW Normal YELLOW [facility] Comment on above: Performed By: #### U A #### [facility] [address] [place] [address] Dr. Fadi Meza Glucose Ql (U) Negative Normal NEGATIVE [facility] Comment on above: Performed By: #### U A #### [facility] [address] [place] [address] Dr. Fadi Meza Hemoglobin Ql (U) Negative Normal NEGATIVE [facility] Comment on above: Performed By: #### U A #### [facility] [address] [address] [address] Fadi Meza Ketones Ql (U) Negative Normal NEGATIVE [facility] Comment on above: Performed By: #### U A #### [facility] [address] [place] [address] Dr. Fadi Meza LEUKOCYTES Negative Normal NEGATIVE [facility] Comment on above: Performed By: #### U A #### [facility] [address] [place] [address] Dr. Fadi Meza Nitrite Ql (U) Negative Normal NEGATIVE [facility] Comment on above: Performed By: #### U A #### [facility] [address] [place] [address] Dr. Fadi Meza pH (U) 6.0 [pH] Normal 5-9 [facility] Comment on above: Performed By: #### U A #### [facility] [address] [place] [address] Dr. Fadi Meza SPEC GRAVITY 1.025 Normal 1.005-<=1.025 [facility] Comment on above: Performed By: #### U A #### [facility] [address] [place] [address] Dr. Fadi Meza UA PROTEIN Negative Normal NEGATIVE/ TRACE [facility] Comment on above: Performed By: #### U A #### [facility] [address] [place] [address] Dr. Fadi Meza Urobilinogen Qn (U) 0.2 {Shan'U}/dL Normal 0.2 - 1. 0 [facility] Comment on above: Performed By: #### U A #### [facility] [address] [place] [address] Dr. Fadi Meza CULTURE URINEon 08-02-2022 CULTURE [...] Trimethoprim/Sulfame thoxazole >=320 R F Normal [facility] Comment on above: Performed By: #### C VDTB #### [facility] [address] [address] [address] Fadi Meza UTI ([facility])on 07-05-2022 UTI Report Diagnosis Info Invalid Interpretation Code [facility] Comment on above: Result Comment: Osmani riggs [...] on: 07/04/2022 23:05:19 Performed By: #### 2 [id number] ####[facility] [id number] [place] [id number] UTI ([facility])on 07-03-2022 UTI Method of Extraction Voided Normal [facility] Comment on above: Performed By: #### 2 [id number] ####[facility] [id number] [place] [address] UTI Number of Jars 1 Invalid Interpretation Code [facility] Comment on above: Performed By: #### 2 [id number] ####[facility] [id number] [place] [address] UTI Specimen Urine Normal [facility] Comment on above: Performed By: #### 2 [id number] ####[facility] [id number] [place] [address] UTI Type of Service Global Normal [facility] Comment on above: Performed By: #### 2 [id number] ####[facility] [id number] [place] [address] Urology Office/Clinic Noteon 06-27-2022 Urology Office/Clinic Note [...] Low estrogen (more content not included)... Normal [facility] Comment on above: Result Comment: Elec tronically Signed By: Jalen Robledo\.br\Date and Time Signed: 06/27/22 00:01 EDT Ambulatory Visit Summaryon 0 06-25-2022 Ambulatory Visit Summary JSESA CHATMAN :1985 Visit Date:06/25/2022 Ambulatory Visit Instructions Your Diagnosis Recurrent UTI Bilateral kidney stones Tests Performed Urnls Dip Stick Auto w/o Microscopy POC 48355 Your Care Team Attending Physician - Jalen Robledo Primary Care Physician - DEVIN LMA DO This Is Your Medications List acetaminophen-codein [...] Urnls Dip Stick Auto w/o Microscopy POC 67167 (06/25/2022) Bilirubin Urine Dipstick - 1+ Small Blood Urine Dipstick - 3+ Large Glucose Urine Dipstick - Negative Ketones Urine Dipstick - Trace - 5 mg/dl Leukocytes Urine Dipstick - Trace Nitrite Urine Dipstick - Negative Protein Urine Dipstick - 2+ (100 mg/dl) Specific [place] Urine Dipstick - 1.025 Urine Appearance Urine [...] to exami (more content not included)... Normal [facility] Patient Educationon 06-25-20 Patient Education Obstetrics and [...] this condition includes: ? Antibiotic medicine. ? Vllo-ixo-yvutsxa medicines to treat discomfort. ? Drinking enough [...] these instructions at home: Medicines ? Take tait-qgh-jllycnp and prescription medicines only as told by [...] This in (more content not included)... Normal [facility] Coding Summary.on 04-23-2022 Coding Summary. [id number] Gh0bWw+PGhlYWQ+PE1FV BKpE49wzSFxaP7MJ6dYY G8DRVQUNUUEMN9HUU6wx VO5ROxuI5WlwrNa GwqwpYDnBF49EIa2PDQ9 iUayLOibiK8efOKsM3r4 AiSoWC31bR97LCzvMUAf NsW6EgSgiasqpAXk H7oeAyNydNOjIwx+PHRh YmxlIHdpZHRoPScxMDAl JrYviItdWE7uJz4jTSPo LWNvbGxhcHNlOiBj f6tsSUJcHJrhUB2qxUtt E5VjoKR0TGNay4a3Ge10 dHI+NJAjKUF0pQvpFEte w388FdKkg6dfGZL5 fLMdKBtwHHV6L72eq5I3 WGRyBALaJVS9zUZ9aF2e mBcxvewfO8EbmHObNbU6 HEK5wFStqS9inUql eylkzC2bSft+T57IET4G IOBQQB3SPni8G9GgNvzi dHI+AK46WAYwGS40yOSo bCZfj1fzyRq9MkOk EXJcUQK2cSxuUDssz8Yd TTCdL97haYMmn4D8DKHk cUhozQIuKpBzsTI1gL3p VYnixsywq4pniaaw Wcrid3xbqj85fG56S31w PVbaSECjQJU0DJQmMMBa cVuhyi4ofH6aRp5+IDxj t4vdy8tndVz5CdBf WMWddbHtsVecWBU3n3Yt Ad15H9XwdBceu7FaGzm4 gt62zNUpu5M3vAN2TAui RJTftU0dBNixTnF8 QPGgNeRheF65sDHvWYbm Ax8yeNuadEzjAI9bXXVq fymfLKVeoB9gNMJsdZPx bPftSH6jJCGytyku f541MsKoOHV4VBKopSBo F7QxpH0lOrStCUDaTWQq E0YlgINlMLkvT213JQwb CwQ7JEWwtiYtU7Pt WPIduRsjJiB7j6L6Jk6E u0DlnunkPNT8FCpjERC0 TdC3OdMaZjQ1C8VcRma5 IMHkwFvdNA2lP9Fk NKLjyyvxvgbldMP5OFOw DGEzeB68wSKlIKanTw1d p9N7l555WNZkXYHsjR72 Nb1wyQfhEBTyiAVM gE5nmxunx4oyqjbgIjGl CGBuNDr6JNd3ULQhiMly MaOxLME4NwB6YKX6sYFz kG6fzGwqvmlciM4v Oyc+W42asD6bTCP7LRN2 uyhiCBQlfrYnGT94GB72 J0UtJmamxGGonSB+PGRp xoZlhNwzPB8eLlGg q7mxd1FvRPwxH7HmAXSn GUmfVxs1TWRjIZX0vHS0 hH4vFDXsWNyzq4F9sRC5 A9NuagWfnh8dd9jz KEBbFNgoF91iwINlt4L5 ULEbbSO9FRHlcXdfQeTe gP04Gvo+TNLklFmym8Gj Jkgbo3qiz7ntbLf2 IjMwJSIgdmFsaWduPSJ0 s5JaRw13D38tZVvsIJBs MTSeCEAnULSnrBsqrl9a qS9vLv9+PGNvbCB3 tRL4sJ9sGGAmAbT4CNxp I887ElWarQHqDbvjr8pl x0crvPq7TxGfJZAcogSn gFdaYIP1e2BsTt53 A95nPNhbIQUoIATtSAOj ILVknHxhyj2vxL4bYe7+ XV5sh7otre05yR98qLX+ ANTcMGQ2bAipZFit DGJmnJ0zPNgkGhM4AIPb YrVjbW94fXNkZQqsRq3m vSycqExaHR8gHILrqenl v060QvElq3tcHDZa zDRhHYhyQJL3T10aw7P5 APUwNFDbTZX1xNY0jP3k bGlnbjogbGVmdDsgdmVy lJlmFNxhCMrgC981 IHRvcDsnPlBhdGllbnQg HtByGNf4A5QfUgp4PTDo xDmjMK8kqYJyEMjlMq1f nOjigRwoHI7qVGQv uarqu067LdUfy8uhVWIh oVZzGLgiCMK3D51ng5F0 YPZwDLXxFFZ1bPM4aL5e bGlnbjogbGVmdDsg xxCtoXevVKayWCsuK463 IHRvcDsnPkJpcnRoIERh iBI8ZA62MD95tNLsq6Z3 oUN0N6UwXINghmuy wjapfUC4BHDgXOSvnU27 Ld7beHzsMa3iPYNsSTX5 GIDykWJrU9WhsG2xMiIe HLJfSGAtI4ZybCGm SQtcU433TRmeMpC7RZYi akAxM7GuAGRiqEpaCoG0 i9R3Px2NU9B0KT30VS76 iFFuq7Q7hDP5Y1La WIIhgflmleajjCT3TNAs NEKemH77Yo7cxGxmKp3c GEOgRST7NSMovWUtZ9Fl uQ5fWfRkSBKkTMTg Y0EmaJRbUOgnE870DXst VmE2GOZcdoFmZ7GmUGKq qUkdEgZ6u3V8Eo1QCFw7 RE11UE72qGEeh4W9 gBE6D6IkWBRkggwprxbn mXV5QHCqVDZrqD91Ab4x zSfsSx4aOKOsATC3MDBa vZXuZ5PszV2aYrZy OTBdUGQzY1OnaRMbBBbq O517MZcdRhS7PMExozBi M8XcMMVquHzhGkT3b1Q1 Sw7NBZEuED01CKT4 bWJ2MZ02BW38J3VmMeqe dGFibGU+PHRhYmxlIHdp ZHRoPScxMDAlJyBzdHls MB8aAy1gXEMsXQSj lQrwpFFcJkEjo9fdUQHa WBfuJA1qrRvfY2IjoHU8 SEDgb7i1Bh84N59kB1Tk dXA+VXIjzRB1xUX5 cT8bXwImCoG2ARzyG467 QyUrhVXmOrvbw6rhu3rh kTn1UeN9RTIjktVroAfx VZC0d1BzWf12N09r IHdpZHRoPSIxNSUiIHZh oAhwfq2ogB2sAh5+PGNv eAV2jJV2uD3gFbElCxJ2 QCuhQ370AmSkfDIw Gybbz8hxp2kduPe2JeYp TCMzszLyhHsfPUY4j9Xj Sy96H0SywWrea0AgRnf6 uv76vBRwa4Q3cTA9 L2VmZBQbbdehkWLdrJwl LP1gJZPnnqfoCFAhhV7s YVBoM8d8HvJsQhR2YVlr H2AienP9PGXsuSWi JIdvDIV0T37qk9X4KUEn VFMaSDK8bUT2fL2foOqs bjogbGVmdDsgdmVydGlj OPxnIDddA080JRUa gOsfCQSnwQ7dKAMqaLRr kVwuPL0nNPAlpiorMw3X QJHNRZRGVB2GTOyovCO+ SCOeELP2iZvlRMtn QOUmaJ1jQDSlV0w4TaZs ThC7OKieY3GgHKSbvvtw Cd71sP6sZpAxUuD3RAeq R5BgpjY0CFYohIGi KSuyMYM8L13gf2J4QFOq PABiKDI6fOA3rL1fmKqi bjogbGVmdDsgdmVydGlj GJwwKPlcS921SHDx lGcrXrJ6CsB6QnR6IXI1 C0EkPth2ZGAqvKbjNR7j dPJbRLnpHc8prChzwOqf VX4bJONlkxbnRURu tQ6nJBOxqGTpbCblGY4z NOTuwoydn586LeAdLBB6 GVAnkFGgQ0DviH6jWiEo VAAqNXNuL9LtnSQv HApsR080HDjyQpM1MAOk cyCdS4VpSNLzwKmaYhY0 y9A9Xo9dMMVOTKFimmha dGQ+QCAmCAI9pHxp XIjjZXFcwI8eTCGvM4b8 QcXrJkN4TXkkX9UdSLQc aadkCx24tR2vEjMjKiS4 NNgpI6BnujM5KAUt bQZuNUcyWOL7W20ch7V1 YZFrOURvZAY5dBM1rN9n bGlnbjogbGVmdDsgdmVy oIvzOQuaRVonM437 IHRvcDsnPkZlbWFsZTwv dGQ+VXNwUQH4pRwnUAzn WOGorV7qMYAdD4x2CaPy PfJ3KMcuG3WwVTOm ndsiCe02mF9aElYkBxO1 LLwsS1GpfhD7XNRvgYMo MNlhJEV4S61ml0H0SHAz MSUgYVO4oFF1xY0b bGlnbjogbGVmdDsgdmVy jAofJEgnYUncB704RABp jGriBcqsXdYMkc6vTK6a ZjwvdGQ+IN40ij38 B1ZhNwvzVbw1KLAeIXY2 hYL2jW7qHIEuPUsis2M8 lQV3C6DrkiFihq8du1pz XYKgFOhaI83agGGp l1A9CMJfsEL7VMNqoEvp EtHkqP70Fzn+PGNvbGdy d0UpOymyc4eyq5wseJw5 IjMwJSIgdmFsaWdu OQP4f7HtWh77Y16rDKys ZHRoPSIzMCUiIHZhbGln gj5lpJ2iPx4+PGNvbCB3 zKG1mF8uEjMjOcJ6 KLvpY877QtTkwPErPtda k3ocs0zqeUk6PkXuXVSc hxMwkLkvDPQ0w9FkMs59 I7QnzEkyd6HcHip5 ii59vQDbk8V1uLH6T2Wh KFBnafitiLAhyOgeBK7p JNZxeybnGOMraL5fCOWd X2z8NoAkYcG6QOte L2ZzzdF8OCLcxXZvYQNi gZUYxZ8uwqwwk7ssybti TtQfZXYbJVm3HWw5PKNt xNmiMgNnRRR8HmI0 JCD4eHFoaA8rjPbmcwee fV7qRmo+GEv9e8qgqRQr ZH7baKD5XP98GV44qILz c0N0hZG1Y3KlCZFv wnemmesihCC5CVUjOAQa cI17Iu1rfAfgTl3sABTg SMD7PIRwxIEeO0HtbK4v IpQaIKHzINWwJ7Mj hOObXKnrE004HFjuXhR1 KNJqnkKqZ6ByJKJszEhe XvV2i9C7Bh1TRZ40KQ24 JP22qZLau2Q2rGX7 V9IiRNXfkmdnyabiaWM8 GQDiEFJpbP44Fk6cuVxs Cm6nJOArGIO0MWTmmGSn A9SvrC0zTvUyNXAs NFZhE2OxuETaQHjqJ488 MIojSiI0ZVKeiqBaD4Ie GPCbzDmlCvV8k8P4Ck1V Sf27IC94XM63eMRj x2Z9tYX6E1AuCZHkxyxn mrqqiNP3FSDuBFCjgL41 Rq3acSlmGc5bLHZrTWA3 ONCgkADiC6ZgsF4e MaOxQIEeBWZbP5KzmHFg WXjgO314QKinTeO2KGYx kbJgK5XbNKLdgXwdWnO6 l8Z7Lx2AFGpjmle6 F6AhVsqmcPZ+NN21LEUo AH90eZOfqXVyr6gzrFj7 BdClGGMdXUE5uVbvKIbo j3LiCIEmQ48ciLNa c2U6 (more content not included)... Normal [facility] Reminders 04-18-2022 Reminders - From: Lupis Turner To: EU - Clinical; Sent: 04/15/2022 15:02:18 EDT Show up: 04/18/2022 08:00:00 EDT Subject: Urine culture Reminder/Recall Urine culture done on 04/15/22 addressed by ANNITA Smalls [facility] C Urineon 04-17-2022 Bacteria identified Cx Nom [...] performed at: [facility], [address] [place] [address], [address] , , [facility] Comment on above: Performed By: #### 2 [id number] ####[place] [address] Coding Summary.on 03-13-2022 Coding Summary. CD:[id number] Gh0bWw+PGhlYWQ+PE1FV SMvJ39zfCRjjI6QY1wPN B7IBVTDORLGBM5VOL2uq RF1LXkwF2WuvaYn UsghrNJyCF49HVe6COK2 oRuuHWrqvQ7qzOAsB7e3 LwSzEN35xX34EMlwBTDa XpN5WiJuctuvsKEr J0ccRzIfzQTbNsr+PHRh YmxlIHdpZHRoPScxMDAl QdGmwYhuMZ1rKa2xFBFs LWNvbGxhcHNlOiBj n2oyUSXhDAduHK0xuSsf V0LwtMN1FDFqy9t9Gs74 dHI+WQShUAA7nAdmROtr w011LyNnh5azFRN3 iYYkSHvgKBK3W64qq8Y0 NGVbMHZxEYU0nUP3zF1o jBkfwtgoT5IngQHyKgR3 FKV6cOZvrR4sdUoj ycfuvT8rXlw+A15CPR5L TWPISI0ITqt2B9NoNgdg dHI+KL33TOWjRU16zGEe hXMto8emoQk4FjQw RVCoNPJ2nLqyCZclk4Wn PXUlO74qtVGcf9D1EONr oYiqjQBkFgWcsCS3uB6r IYaschrcp8ylsszi Jhyne9yrbp70yM80T97r DIlpIHPhVAL6TIQjEDAu lYxhjp0nbY5lTv7+IDxj a3xzn3guzLh9FmVw MGSbuqIwzUbnSYQ3q9Ce Gs81P4TkjLctm0JtRcv5 sy51jFWjy6U0xIH1GAlr BFNtjZ2pXAumXgC8 KNQgHbMepP00yBQrIIyl Mb3yvMjgmSskHD0wNIGl ltqlGUXneG0sUMZgsTRn uBswUE4bTYTwlwhi d915YfMxTHT0NNOptPZg G0PvhJ9qGfGnFKRwLUMr V7ZqrHQjAWueR096NWvr AkG4YWOtyxDcY2Wi BYEkxTclPiF7p1X9Le2W c7XzizlcQKK2NGzjBOG3 BiQ5NbDqQzN2E0VjYbw5 UHRnoLoiPY5tJ4Cx AJLddbnclakouME1XBZo LJGbgE80oONmYBvbHd9h h5Z6n160JXQlVJMszP50 Ui9tkJbvJYJanCRF mE0senjgb7cxnlwsUmQk UBHaHGs3YQe6KJQqxZsg BdXbPDS4PkX5IBN0jVXf cX8zuPucuouhkZ7j Oyc+F07dfU2nNIH5UMU0 oapaDEHmidPwTH61KH54 G6OuQnzdiIFoaHI+PGRp jmNgsBvsSK6vJtUk m8lcb7LmTUhkH1DfFSIa SUsgAzo7IBVvYQM7kRX3 oF7rLXFtBQias1G9yCG9 I5ImllVgkm1jx5ym ZOMdFYmrY16dhZXig7I8 UBZstBG4FIRezCgiMbOy iL98Xmy+FAWqxGqwp6Ih Dlusd0jzh2jckNi4 IjMwJSIgdmFsaWduPSJ0 v7KhWh87B63kKZqcHZYl COIbTKAyHQPvkSgczw3v kY2vYe8+PGNvbCB3 dUH6rL4gKGLlCcD7YWuw D694UqXoyIJcFwlmt7tp r0pydTy1SdFpYMXgbyOt pYkcUXI5v8YfPz79 Y54bELurIGSvIIEzCIGn OQRdlGlmky2vaZ1rHs2+ EO7iw6dcaf65sH28wWO+ ESWuYVN6fZcbSWsy DEUgaF1nBZxaNkS9QVZb BhSjeX65kNMbTDrvBv3d tGvhxSmdMA7cTPMgliho y923SsDsg7ftJMEz cYUgHEzaVFX5U86dy9E7 OHXvKQQjFLX0lPM6cZ2m bGlnbjogbGVmdDsgdmVy jBumJCltOXmsX130 IHRvcDsnPlBhdGllbnQg SsUcKTi4R9CiPvd8YWSo oMsuCU1euTOsXJzeMw6m nNythTlzUW8kLXEe mjpkr796FwPpw9qsUIEc aWHeXQfhSCO8J12sk9R7 VCBqFKStDJE2zPA7aW8m bGlnbjogbGVmdDsg qqKuuFjjIQkhVYkzS393 IHRvcDsnPkJpcnRoIERh wWO7GF63LW86mGHhe0D3 jRZ8N9DqGRScotic cnvgdTG5ZOFiXSHjsM50 Gi1owWslQy8eXYFmJBN0 WLAavRLeA0UwjL0eSgKw OPSnMRJyN1YvhCQa XRmcY897YPaoAuY4GKWk vzJeG4OzLVUliAxgGlT0 i7E0Xh7ML7V1JF02GR37 mZNmb9H6sFV7O1Nw DVLrdcqvekwbuAN9INNm XGNbbU59Lh0wiFptUt1v ZVSlWRA3YCSzkYHkP7Yd bQ2uVxTqHWXdWWBc B7RjbZRkWCtmC114TMug FdC5MVJjeeVzY0PkBUXv dWbpNoZ7n2S1Eb6GIBg1 PV53HB42pYEmd1P1 fAE4Q4DiBXRbjflqoqys gKM6BGWnXDQapV72Rk6b cFieTl4fQXOyLUO4VWWl yNPmM1ZdrG6kEhTh ZOKiUURgY9QzcQFlCOcw C803XDjbZkJ4KJSssbCw J3WmJWAdlJucKxF9h3J5 Di5NBLMwZR57HLF2 kPW7JP01OX47X3KdZohj dGFibGU+PHRhYmxlIHdp ZHRoPScxMDAlJyBzdHls UB0uJo9iZMRpYOMi tGvjxEOlSpDye1sqWHUq YInsDO2drDskK6GojEL1 YAUrd8w5Rg03Z59cU4Br dXA+FHMmqQE0yKN6 wU9gZiCeQkG7SPylQ664 DjIltPQiWxiiu0xqb6oj tKr6RrI6WUGaemZkoBks AAH1n7KuGt51Z33n IHdpZHRoPSIxNSUiIHZh lOfxtb0euE1vSb0+PGNv jQM3fJV6iG7cDnQnNgO4 TKeaE548HbActRFn Iomwx8jbh7pnuVb2WcRm MCUgzhKeoOhjXIE0x2Gx Vw83A2VhyRiba6MzQmv0 pt15xTQum7F6wEC8 G2LuMAMycrzhwZRtnYje TL8xRLAuqkzeKLXpiT9y WSUsO8j4BnHlUdO2YZvw C3RmfvI7CBPqdVDc KBzeGSO7V52qd9X0GQOp CNPzUWZ2qPH2oI8crWrx bjogbGVmdDsgdmVydGlj XPmaVJttZ475JZRi sBkrJLHkcG4zMXVayTQb nNwwEV9rOTQccscwBz4U BHCURGILIC1MSVycqFX+ EEVnIBB0xXfiNOfl KPLbqJ5bHXXxU5r1RwTk JdY5KEyoR2EoDWTqhsbw Qt68kD9eNdYrFoL0JCst W3ZtijY1HWZvmZWa JKhjRID8Y81hr3K1OUIw DEDrGZE6fDC3kP6cbJow bjogbGVmdDsgdmVydGlj ZAsuVItmN804SFRx wQudRvN8XdH2CzY7SCI2 P6VqBam3LQNioFivLR7b wBGvCXfaYz0pxOdnwQeg EL4eIFMgmmgcQYYt gY8zPQKotKPejRsuNI8q FDEbhsyti150VyQlJLK5 GFHahZFuW4WumQ8zBjDg GHXbCCMnQ6DvoVCo MClwY651UPqnQmF0OUNg tdOdQ9GwSJKttOncZmT8 z0A1Rx6zVAQBNJEwhrcn dGQ+SRNoHMB6nFlp WKbgFBLveC6vUKCpI6a5 SiAnBtQ7YLcxS4GgMDCp czcpXp44wR1kAnJiGzL4 SPvbF7UblyJ6PFBs vSKkSVcqRMB2E39ak7I7 GEXsYROoYXQ1tUW2oA1k bGlnbjogbGVmdDsgdmVy jBooKQivXKjuQ938 IHRvcDsnPkZlbWFsZTwv dGQ+LIHvNOM6yUydCDtq KTPxhS2lBSLrH1s5PwBn XlR2QXiqM1RoCIWe iswfSa90tV3cGtGvHqR1 XMmtC9HwfcN2RWSvvGGp IXppXFB8H43sa5F5QUQb GWFbSLA4mIJ3hF6s bGlnbjogbGVmdDsgdmVy kQlaKYouUMbtS350AZGd gTbbCouiPfNSta0zYH7f ZjwvdGQ+JD49qu68 F1XgQmqiRmu1VOIjVMP3 cDT2gO3aIVNaRMmwp2C6 oRP4Y0RqzpQkex7sm9rb XTAoQHcqL92btZOh g0Q0WLGvnKX7JWOniZsf UmQgdM60Dsp+PGNvbGdy g6KhQervp6ckq2ejkUs8 IjMwJSIgdmFsaWdu UFW7z0QlUl85S16aBPpx ZHRoPSIzMCUiIHZhbGln ac3xkB6jJk6+PGNvbCB3 rWD0eV2zKcQqNpK2 LGquM789QcNqaAFlFjru f8yow4asnGp1YrSdNIEh pnPspDaaUCO3y2GdQi34 N4YpeGqzj5YgHyi3 ef90hLRme6I6jMY3X7Fc NDRxigbhcOBriXwlCD6v PLHqcyczCAGqmS2zGDHd L6j5KmBuZdC3YBde R3MuegS1UOVvmWOsKVNv mUYDbK1yufzlz7ehotcc KzTqXZKnLLo7GBd6OWFn bKtzDiBeNOM3SmY9 OFB0iZWxfX7auYuwiyny aY1jFgd+JMj0t1rlkSFd ZG8wqOZ8XY13HY32qISi k7H3dUP5U4ObEHTe xapzunwkqVW1WHYiZZOn yJ89Xx0rhIchCt1eAMAe ULL8BJLucXKuH8OutC1m FsYsKUVeOQZfW2Zt vPDsBQjgF431RMfaXpV9 ZAHjaqQhG6BrRKWlyNbi QoA8t1G8Jt1HAA14SN90 EP39qOAgx2N3eRJ1 K4CdLSXlcsmwnqkbaTT2 GGEpJNRylR98Yb4yiXqp Vk7jBGPtDPI8DIUaqKQc A1FxuB3gTbTyENOk TFIrB2FkrWArSLkkY283 RRqnWpO9ZZMrtwQoG1Qo NCNapMxaUjF3f4N5Tu1S Sc85SS65GA15nMRc k2U8xPZ1M8NoIBWiruug rsdljQT0EUIhFSMrlU22 Em5hyBohId7lTBKpCBR9 SHDetXMeJ5TvgZ4x LmZsLMSeGOFmA4IfcWTv ZLllE453OSxiJaO9OFOf rzJgC0AhEWEdqVgqGmM2 t7Y7Ch5VMEffzpp6 M6BdDicnkVK+LB54ZTNp SS86aLCntHSpc2hvnIl2 LhWcEROpSFI1wHraOBaw j4OyDYDwO14igYDs c2U6 (more content not included)... Normal [facility] C Urineon 03-08-2022 Bacteria identified Cx Nom [...] This test was performed at: [facility], [address] [place] [address], [address]- , [place], Normal [facility] Comment on above: Performed By: #### 2 [id number] ####[facility] [address] [place] [address] Reminderson 03-06-2022 Reminders - From: Lupis Turner To: EU - Clinical; Sent: 03/06/2022 14:52:59 EDT Show up: 03/09/2022 14:52:00 EDT Subject: UA micro, CX Reminder/Recall UA micro/culture done on 03/06/22 Normal [facility] URINALYSISOrdered By: Nazario doyle on 03-06-2022 Bacteria [...] PM) Normal Negative [facility] UA Auto SS Baneberry.plasma/Lithiu m.RBC (Bld) [Mass ratio] 0-3 /HPF Normal [...] Negative (03/06/22 2:52 PM) Normal Negative [facility] UA Auto SS Specific gravity (U) [Rel density] 1.015 *NA* (03/06/22 2:52 PM) Invalid Interpretation Code 1.005 - 1.030 [facility] UA Auto SS UA Spec Desc Random Urine (03/06/22 2:52 PM) Normal [facility] UA Auto SS Urobilinogen Qn (U) 0.3172522 {Shan'U}/dL Normal 0.0 - 1.0 EU/dL [facility] UA Auto SS WBC Auto Ql (U) Negative (03/06/22 2:52 PM) Normal Negative [facility] UA Auto SS WBC LM.HPF (Urine sed) [#/Area] 6-15 /HPF Invalid Interpretation Code 0-5/HPF [facility] UA Auto SS Urinalysison 03-06-2022 Bacteria LM Ql (Urine sed) 2+ /HPF Abnormal Trace [facility] Comment on above: Performed By: #### 1 [id number] ####[facility] [address] [place] [address] Bilirubin Ql (U) Negative Normal Negative [facility] Comment on above: Performed By: #### 1 [id number] ####[facility] [address] [place] [address] Clarity (U) SL CLOUDY Abnormal Clear [facility] Comment on above: Performed By: #### 1 [id number] ####[facility] [address] [place] [address] Color (U) YELLOW Normal Yellow [facility] Comment on above: Performed By: #### 1 [id number] ####[address] [place] [place] [address] Epithelial cells.squamous LM.HPF (Urine sed) [#/Area] 3-4 Normal 0-2 [facility] Comment on above: Performed By: #### 1 [id number] ####[facility] [address] [place] [address] Glucose Test strip (U) [Mass/Vol] Negative Normal Negative [facility] Comment on above: Performed By: #### 1 [id number] ####[facility] [address] [place] [address] Hemoglobin Ql (U) Negative Normal Negative [facility] Comment on above: Performed By: #### 1 [id number] ####[address] [place] [address] Ketones (U) [Mass/Vol] Negative Normal Negative [facility] Comment on above: Performed By: #### 1 [id number] ####[address] [address] Baneberry.plasma/Lithiu m.RBC (Bld) [Mass ratio] 0-3 Normal 0-3 [facility] Comment on above: Performed By: #### 1 [id number] ####[address] [address] Mucus Ql (Urine sed) TRACE Normal [facility] Comment on above: Performed By: #### 1 [id number] ####[address] [address] Nitrite Ql (U) Negative Normal Negative [facility] Comment on above: Performed By: #### 1 [id number] ####[address] [address] pH (U) 7.5 [pH] Invalid Interpretation Code 5.0-9.0 [facility] Comment on above: Performed By: #### 1 [id number] ####[address] [address] Protein (U) [Mass/Vol] Negative Normal Negative [facility] Comment on above: Performed By: #### 1 [id number] ####[address] [address] Specific gravity (U) [Rel density] 1.015 Invalid Interpretation Code 1.005-1.030 [facility] Comment on above: Performed By: #### 1 [id number] ####[address] [address] Type of Urine collection method Random Urine Normal [facility] Comment on above: Performed By: #### 1 [id number] ####[facility] [address] [place] [address] Urobilinogen Qn (U) 0.2 {Shan'U}/dL Normal 0.0-1.0 [facility] Comment on above: Performed By: #### 1 [id number] ####[facility] [address] [place] [address] WBC Auto Ql (U) Negative Normal Negative [facility] Comment on above: Performed By: #### 1 [id number] ####[facility] [address] [place] [address] WBC LM.HPF (Urine sed) [#/Area] 6-15 Abnormal 0-5 [facility] Comment on above: Performed By: #### 1 [id number] ####[facility] [address] [place] [address] Consent for Procedure/Surger yon 02-26-2022 Consent for Procedure/Surgery [id number] 9#1.00CD:127 Normal [facility] RAD - MISCon 02-26-2022 RAD - MISC [id number] 8#1.00CD:127 Normal [facility] RAD - Ultrasound Reporton RAD - Ultrasound Report [id number] #1.00CD:127 Normal [facility] Ambulatory Visit Summaryon 0 02-25-2022 Ambulatory Visit [...] JENNINGS, Kwadwo Andrade Where: [facility] Normal [facility] Patient Educationon 02-26-20 Patient Education Urology Kidney [...] these instructions at home: Medicines ? Take svqn-bpa-gagdcpp and prescription medicines only as told by [...] 04/13/2009 Document Revised: 03/13/2020 Document Reviewed: 03/13/2020 [employer] Patient Education ? 2019 [employer] logo. [facility] Urology Office/Clinic Noteon 02-25-2022 Urology Office/Clinic Note [...] urine The Urethra was dilated to: 18-30_ [place] with sounds. urethra bled. dry. Removal: Cystoscope [...] EDT [facility] [address] [place] [address]- Additional Instructions: Patient Education Kidney Stones, Dgpp-qn-Kizi Devonte Nickerson personally scribed for Dr. Saez [...] Grandparent. Diagnostic Results Tests Reviewed: Reviewed UA. [facility] Comment on above: Result Comment: Elec tronically Signed By: SHAYNA JENNINGS, Kwadwo R\.br\Date and Time Signed: 02/25/22 15:21 EDT\.br\Electronically Co-Signed By: Devonte Echeverria\.br\Date and Time Co-Signed: 02/25/22 15:19 EDT Pre-Certification Formon Pre-Certification Form [id number] 0#1.00CD:127 [facility] Reminderson 02-10-2022 Reminders - From: Kristyn Echeverria MA To: EU - Clinical; Sent: 02/04/2022 16:03:36 EDT Show up: 02/08/2022 16:03:00 EDT Subject: Urine Culture Reminder/Recall Urine culture Pt is currently . ANNITA addressed [facility] C Urineon 02-07-2022 Bacteria identified Cx Nom [...] performed at: [facility], [address] [place] [address], [address]- , [place], Normal [facility] Comment on above: Performed By: #### 2 [id number] #### [facility] Laboratory [address] [place] [address] Performed By: #### 2 [id number] ####[facility] [address] [place] [address] Coding Summary.on 02-07-2022 Coding Summary. CD:[id number] Gh0bWw+PGhlYWQ+PE1FV TDkI37tqRIfcM8XA6rDD O9ZDTTDXDHMES4NSA8ri NY8WEdgT6PrqnYl TzasmOPzQQ79UMb9JVA5 tLnyRLyqkM6kaJLoM5w0 KiTmMM33dH91UYyvHBMo QpF4MiAzvvajeQYb R6cyNkMeqEMsKwb+PHRh YmxlIHdpZHRoPScxMDAl MaBglFbqBZ2uBp9sHDSk LWNvbGxhcHNlOiBj o0xxOWIyKDreZQ4bfAol R8XggRD2IFKmh0d6Pr69 dHI+BGJdLPQ6kKeeKPhj t766IuCbc3vtWOM3 wDCsLPztONY4O66jk8A4 BCSrSMUdLWQ2zCZ8dN6b tRvalebeB0CvhDStYyI3 ZFF2fWZwoG5gxJvn xlvtaF1nXvv+N34OWY2S ISSCWI7KUnc2W8SvNtrp dHI+CQ99ZPQpQM70qYYv pKDxz3khrZj2XzDw CGJhOXT7cPpnFSyih1Pz OAUaV19gqMCws7F6VJXs aAmwfPAfGwHhqGW7bZ5i CRxbffxlj8tuygok Uipxp5oqln37kE01I90f YQapKUOdOWE7AEZgDINg xOjvtc2kmQ3jUb8+IDxj o9slf7fkpEd9CdDv QHGcfoWyuMkdGUC3p6Pk Qs62N0CpxVvch8TiPgf6 so65lTBjh1F1hPR0TGjd RLJleO9rBAedWqU3 GUUsArKacI10rRGsQDya Ia1oqWrnnQcqUH1xPDJp rworWMIdxW7sDPUlhRSe kDulRF8uVFEkjmre b944TsNxEUT8RJWuvEIm G6OvtE3eQjBsWHRjTWJz F8AjhEOcUGywD051GFmo VqG4PTCzpfXvZ2Uc XBOwbDqcUhJ7m9Z2Ai7A v4SbsretIHO9AOzaHEEp FhEjGhHpCdW0J0BcRmf4 SIXscEaoFN4tN7Pa QIWlycypzddeaJT6APWt ZNAdoE62pIMsUCatIa0x u7K7p991SNNhMKFksV00 Ek9vaYgrAPDiqRUH iV2yrldrc8utihfaNmGy LEYnCTu2PEy8YLCakSqt NkBbTQP6XqB7HPU4wQDh aP3ulWkkwfornP7g Oyc+B05jnN3jSHP3DTO5 vwmpZHDesgLkPK88RS65 I0PmUfwjxBRayJC+PGRp ipLaxQciQD2tRfXv j2xib0QnFTriX9VgJHCe DZkzFle6HTIjVBE8iMR8 zO9jKOJcVQqbj3O8hSO3 G6EeqaDxqs6ek1xp KPMmGZicQ02rnFVrr8W2 CKJbnBK8HHGptZncCmQi gE85Ceh+CTBvpBbtq2Gy Jcpbv8wqi0oynIq2 IjMwJSIgdmFsaWduPSJ0 q8YxZt66P58wANkpGMPy UZFjGSFsPPCgjWhqcn7y nW9iWy3+PGNvbCB3 oUT5wQ8vKPIbRnU1CNzh U643NlMfjXHlKpnbi3mb g7eooLd0LjQgQFUyxnEp xGlkNUV9q5EtPk14 M94fTJvvGAUdTAZkYYSm NVCgaRhrkv6vqM4lGh9+ UU7ga9ogkv83qV51kVR+ DNZdKZP1eLigBOaj FNImlQ3gEIwvQkA5OBNn GmEypA06kBHdWSziOr7e gWcftGdtVR5rNXZvfmtf r494XkJbz9vxFOHf xZExGDkrAIQ6M28jk5Q3 NWCtMDGiZDR7wWO0mP6v bGlnbjogbGVmdDsgdmVy rJdtZTfnAKncJ089 IHRvcDsnPlBhdGllbnQg NcRrCAh6V1JfSpu3OFBs cKlpXK1paGMuDNxiHl3z lIrcdKfmKS3zJCEi yfiar888KrSsp7yeDBBf tJUsMYukAOC5G78yj4M5 LXByIJUiCMZ3dHF3qY8j bGlnbjogbGVmdDsg bkLymAtaSWhxHJzgE058 IHRvcDsnPkJpcnRoIERh mHN4SF16OY50gPBgc6Y9 pRK2B0ZfVCCyjukd abpfpPA2KAEjJVQizM96 Dr1wzTafFu9zJQZbARF9 EEIweJUyK7GjjO4aGoZs EFMqZYAuN5NacMKe IAxrL174OOipBoX7MTIq ucAxE6CpGPOtbDexNwX5 g8D6Zy0WL8Y8BZ76JY05 rYNlt9G5fUW6N2Aw KCQqmgcjzcggbGZ6AMHg EROofT42Hx5laNhkHa2q MJNgSYQ5LHBzgHTwT7Kq uQ3wIaRlFMCzJUUo U0LgmLYsHPigA395QSol GeJ2OEXmstIgY9BkQEWc dLrqIqQ2y2R4Et9RGDm8 XG34VL07cORum2M2 aHY0H8WzURIlmcbbvefp jRP3VMUzQSBwpI70Hi9l hAfiAy6yDBJoCSY4SUNh uQTwB7FheJ4xTsNr UGUtKFIvA4SheSQzJAuz N351EEkxLhQ5CNFoekGj I5IiXBQcyZogDjO6m8A8 Jq0KNTShFE91OUO2 sLK3CW09ZH77C2XwUufw dGFibGU+PHRhYmxlIHdp ZHRoPScxMDAlJyBzdHls UW8mXz6sDVGhMURx kLtlaPKzFeFnm4jaENUh EYxyTM4kdIzaP5BvxIC0 ESFwv3s1Jy34Q37oS3Fb dXA+JDRnePK8zDS6 bA5uAgIaJhM0IQsmP446 IfBcuVMnCxdcs9irm1sh hOu7RnV7NRAkyrXmqAhh IAV1f3BiXl25M17j IHdpZHRoPSIxNSUiIHZh oPtfsi0koT7cWs4+PGNv zTW9mLP8kX8dFbNkXhJ1 VTvjQ910TbExjPAe Pwxwa7igl9yiyWm9SoUk AETlrbRgvAkzCVP3p7Ti Su48V6NdkCxve9GvHza3 eh19sTHos6M4yZU0 F9UsVSNqphlcgVCzmMjo OP4tEUEozcjrOUGvfH8k ICPlV1j7EcKdPeJ0RAyk I1HlacS4DDYvjKUp VGvoOOG2S13nf5G0WWRm INLuCQG9iWV4qE0wjZjd bjogbGVmdDsgdmVydGlj WBaaCBbaS267YJTc lCqgOMJdmY6vFOTkdWTz aDinPL3yLDPmyyxtAj6Z JPOYSZGMUY9LKDbgkDD+ LXMpOWL3dNylPKkc AXRjeR6dXMNwD4o6HjDi TuI6UWtqV1KhVISoidjk Wk07xO5cTbHiHyG7RHyw A0GxasP2ZLIvgRAo EAfhPYA3G94ds4L5MJBf GUZqLBK8tDQ3pS6edPyy bjogbGVmdDsgdmVydGlj ROaeCQkvI351AXZq iUtcDdY2KfJ6JpU6FMK6 P9GuSbp1WKBezXypOR4o iDElIInjLp3etUjupVax JO1cYCOsewosQFEm tP3mJJCnePWqqOqcXP7o IVWpdpfvc081VqSuPNR6 EMRoyUHnI7TouM4jViTi FBQgBTRzE6AsxBKw ZZhwQ756VYroCjJ5ZFUl asRgL6KzQJIrqOutTeZ9 t7K7Ga7dWBOIVYDshacd dGQ+KFGpBFC2nFaw RHvmDROjrG5mLIBxY6d1 DmZoNeD5XSjkX4AgPBDr hlztWg09lB2dNeSwLkY4 JGnbS7ZmqwF5MCZl hHStDPeqMMY7J59dn9Q4 ZZGkUDLiRBL7tXL7aE0e bGlnbjogbGVmdDsgdmVy yWaqTRxhWXuhL828 IHRvcDsnPkZlbWFsZTwv dGQ+ZQPmJZP2xCztKVxh GLEawL5zTPHrM4d5QmYy UpZ1LTxmQ0DnXCRn ysfwPn39aD7kXaYzKeS9 DRceI7AndpI9IMPrvOZz MYjyNAO9N06ak0H7FGTw RWCmDNR4iMV0lE3k bGlnbjogbGVmdDsgdmVy mOwhGZklEJojO178VRDe qWjeGgcuQcUKtr6oTQ9r ZjwvdGQ+JM16gi74 Z8TmJlqyQsf5OIYnAJR9 rPM2gJ8vBESsVTllm4I6 dEW0R3FfcuKdqk8tw3fr YELrDLavN32pdIUa s0T9HZFyiEP2PHKypEvh AvMcxB96Qvr+PGNvbGdy u7ExDnmvz6ckr6bohZs3 IjMwJSIgdmFsaWdu NMN2u0YsZw72U52lOHov ZHRoPSIzMCUiIHZhbGln ml1twK9lMb2+PGNvbCB3 fZW9zH2tJfTdHtO2 HIwrP439IgOroTMxQghf o5ueu6mckTv3JpNzALRf dqAjsDxcXLJ4c4YjZa35 I7WnoZudp5XtVnd4 jz46fNRwh2S8rDD1D5Hh EIPtgtijdQJioLamVI2w VYNblpcvABMzgG2sGQSx A0k5SoAxZrU5SVsu V3GruvB0JDPnpGEbWBMv yLNOyX6pczadb3leafvz YcVsHYByPKh4XEn3DHIi kLswKqHcJVJ8RlP6 MMK8hTNesM5zbYiizkip mP4tKle+JXd8t2kvkWFt ZN9hrWH6AJ77VB82pERj l4E3qZU8P8RiTUXf zdbbdtgauCP7TCDzHGDc mC80Gw1kbEmrCl6sCXFa UFZ1EFQhiPXbU4CdiL2x NgAvDXCdOXMzY3Us jCQiSRwuX776ABfaFjW1 UFVnqxFrZ6YvSLCibTrm XvT2d0Q1Ia8DTC67AB40 ND85mEXrt4E4sBK2 A1WpSJNwfnceqqwefYK2 QJJxFOBthV05Lg9jjZcy Nq9bCRCkBVF6FTBjvYNg A2EbeT2gRjRlGZUt OROsX9DlsTEpHJguR918 CDnrHlR2MTYqdtZzO3Xv PGAulBkgTxJ5n4P8Up0Z Oq33WB98XI74fVLd m9H6nCD8O6ZrGLDjdfzn quenqIR0WIVwTSPgzB91 Qj8teLecKl5nNHIuXQY5 AYFlyETtC3TqfP9k FdAbQFNiSALxN4LacFIa FDdcN010TKbwYxY8WWEj ngQsQ4FnFEGtaGkzEmA0 r2U6Yw3MJJpgtst7 P4VoBcugkIL+OH01YKNg EX45bLSgfRSgy3tqoEy3 WaIbTRKoQSW6gFfmUHfw b3StKDYmZ97xmGXd c2U6 (more content not included)... Normal [facility] US renal BIon 02-07-2022 US renal BI [place] [address] Ultrasound Report Signed Patient: Jessa Chatman MR#: [id number] 9 : 1985 Acct:[id number] Age/Sex: 36 / F ADM Date: 02/07/22 Loc: Room: Type: [facility] Attending Dr: Saida Abad PA-C Ordering Provider: [...] Mark Stark M.D.02/07/2022 3:24 PM Dictation Location: [place] [address] Tech: Saida Gilliland Transcribed By: KARI 02/07/22 1524 Dictated By: Mark Stark DO 02/07/22 1522 Signed By: 02/07/22 1524 [facility] XR KUBon 02-07-2022 XR KUB [facility] [place] [address] [place] [address] XRay Report Signed Patient: Jessa Chatman MR#: [id number] 9 : 1985 Acct:[id number] Age/Sex: 36 / F ADM Date: 02/07/22 Loc: Room: Type: [facility] Attending Dr: Saida Abad PA-C Ordering Provider: [...] Mark Stark M.D.02/07/2022 3:13 PM Dictation Location: [place] [address] Transcribed By: KARI 02/07/22 1513 Dictated By: Mark Stark DO 02/07/22 1512 Signed By: 02/07/22 151 [facility] Patient Educationon 02-05-20 Patient Education Pharmacology [...] Trouble breathi (more content not included)... Normal [facility] Urology Office/Clinic Noteon 02-04-2022 Urology Office/Clinic Note Chief Complaint referred for recurrent UTI. HPI Staff Jessa is here today as a new patient referred by Herve [employer] for recurrent UTI.Started Cleocin 300mg on 12/24/21 [...] on Cleocin x 7d in Dec per [employer]. pt has not noticed any connection with [...] baths & hot tubs, avoid any scented [employer] products, urinate after sexual activity, etc) PVR [...] E&M of New Patient Moderate 45-59 Min 89479 Urnls Dip Stick Auto w/o Microscopy POC 26111 US Renal XR Abdomen 1 View Orders: [...] Protein Urine Dipstick: Negative (02/04/22 14:41:00) Specific [place] Urine Dipstick: 1.025 (02/04/22 14:41:00) Urine Appearance Urine Dipstick: (more content not included)... Normal [facility] Comment on above: Result Comment: Elec tronically Signed By: SAIDA ABAD PA-C\.br\Date and Time Signed: 02/04/22 16:12 EDT Vital Signs Date Time Vital Sign Value Performing Clinician Facility 06-25-2022 09:14-0400 Blood Pressure Location [facility] 06-25-2022 09:14-0400 Diastolic blood pressure 86 mm[Hg] Jalen Mor[facility] Testt 06-25-2022 09:14-0400 Heart rate 77 /min J[facility] Mor[facility] 06-25-2022 09:14-0400 Systolic blood pressure 130 mm[Hg] Jalen Mor[facility] Testt 06-18-2022 10:45-0400 Body height 162.56 cm Devin Lam Other [facility] Other 06-18-2022 10:45-0400 Body mass index (BMI) [Ratio] 28.49 kg/m2 Devin Lam Other [facility] Other 06-18-2022 10:45-0400 Body weight 75.3 kg Devin Lam Other [facility] Other 06-18-2022 10:45-0400 Diastolic blood pressure 76 mm[Hg] Devin Genaro Other [facility] Other 06-18-2022 10:45-0400 Respiratory rate 16 /min Devin Lam Other [facility] Other 06-18-2022 10:45-0400 SaO2% (BldA) [Mass fraction] 99 % Devin Lam Other [facility] Other 06-18-2022 10:45-0400 Systolic blood pressure 118 mm[Hg] Devin Lam Other [facility] Other 05-13-2022 16:00-0400 Body height 162.56 cm Devin Lam Other [facility] Other 05-13-2022 16:00-0400 Body mass index (BMI) [Ratio] 29.73 kg/m2 Devin Lam Other [facility] Other 05-13-2022 16:00-0400 Body weight 78.56 kg Devin Lam Other [facility] Other 05-13-2022 16:00-0400 Diastolic blood pressure 68 mm[Hg] Devin Lam Other [facility] Other 05-13-2022 16:00-0400 Respiratory rate 16 /min Devin Lam Other [facility] Other 05-13-2022 16:00-0400 SaO2% (BldA) [Mass fraction] 97 % Devin Lam Other [facility] Other 05-13-2022 16:00-0400 Systolic blood pressure 114 mm[Hg] Devin Lam Other [facility] Other 04-16-2022 10:30-0400 Body height 162.56 cm Devin Lam Other [facility] Other 04-16-2022 10:30-0400 Body mass index (BMI) [Ratio] 30.72 kg/m2 eDvin Lam Other [facility] Other 04-16-2022 10:30-0400 Body weight 81.19 kg Devin Lam Other [facility] Other 04-16-2022 10:30-0400 Diastolic blood pressure 80 mm[Hg] Devin Lam Other [facility] Other 04-16-2022 10:30-0400 Respiratory rate 16 /min Devin Lam Other [facility] Other 04-16-2022 10:30-0400 SaO2% (BldA) [Mass fraction] 99 % Devin Lam Other [facility] Other 04-16-2022 10:30-0400 Systolic blood pressure 130 mm[Hg] Devin Lam Other [facility] Other Encounters Encounter Date Encounter Type Care Provider Facility Start: 11-26-2023 End: 11-26-2023 ambulatory MOUNA LUIS M Not Available Start: 11-16-2023 End: 11-16-2023 ambulatory MOUNA LUIS M Not Available Start: 10-28-2023 End: 10-28-2023 ambulatory MOUNA ANGEL Not Available Start: 10-23-2023 End: 10-23-2023 ambulatory ARACELI [facility] Start: 10-08-2023 End: 10-08-2023 ambulatory MOUNA ANGEL Not Available Start: 09-23-2023 End: 09-23-2023 ambulatory MOUNA ANGEL Not Available Start: 04-15-2023 End: 04-15-2023 ambulatory Devin Lam Other [facility] Other Start: 04-15-2023 Telephone encounter Devin Lam [facility] Start: 01-19-2023 End: 01-19-2023 ambulatory Devin Lam Other [facility] [employer] Other Start: 01-19-2023 Telephone encounter Devin Lam [facility] Start: 12-19-2022 End: 01-07-[address] MOUNA ANGEL . Facility:[facility] Start: 12-05-2022 End: 12-06-[address] MOUNA ANGEL . Facility:[facility] Start: 11-19-2022 End: 11-19-[address] MOUNA ANGEL . Facility:[facility] Start: 11-16-2022 Encounter for preprocedural laboratory examination DR MOUNA ANGEL . [facility] Start: 11-13-2022 End: 11-14-[address] [...] encounter procedure Dasia SmallsChante Azael [facility] Start: 06-25-2022 End: 06-25-2022 Patient encounter procedure Jalen Mora [facility] Start: 06-18-2022 End: 06-18-2022 ambulatory Devin Kuns Other [facility] Other Start: 06-18-2022 Office outpatient vi sit 15 minutes Devin Kuns [facility] Start: 05-13-2022 End: 05-13-2022 ambulatory Devin Kuns Other [facility] Other Start: 05-13-2022 Office outpatient vi sit 15 minutes Devin Kuns [facility] Start: 04-16-2022 End: 04-16-2022 ambulatory Devin Kuns Other [facility] Other Start: 04-16-2022 Office outpatient vi sit 25 minutes Devin Kuns [facility] Start: 04-15-2022 End: 04-15-2022 Lab Drop off SAIDA ABAD [facility] Start: 04-15-2022 End: 04-15-2022 Patient encounter procedure Kwadwo SAEZ [facility] Start: 03-06-2022 End: 03-06-2022 Lab Drop off Kwadwo SAEZ [facility] Start: 03-06-2022 End: 03-06-2022 Patient encounter procedure Ravinder MCCAULEY [facility] Start: 02-04-2022 End: 02-04-2022 Lab Drop off SAIDA ABAD [facility] Procedures Date Procedure Procedure Detail Performing Clinician Start: 11-09-2013 Colonoscopy and biop sy of colon Kwadwo SAEZ Start: 11-09-1989 History of tonsillectomy Kwadwo SAEZ Start: 11-09-1989 Tonsillectomy SAIDA ABAD Start: 11-09-1989 Tympanotomy SAIDA [place] Immunizations Immunization Date Immunization Notes Care Provider Rao rincon 11-09-2020 SARS-CoV-2 mRNA (tozinameran 5y-11y) vaccine Jalen Mora [facility] Comment on above: Result Comment: 2 [facility] 03-10-2015 tetanus toxoid, reduced diphtheria toxoid, and acellular pertussis vaccine, adsorbed Kwadwo SAEZ [facility] Comment on above: Reason for Medicatio n: Other (see comment) NEGATED: Highlighted row has not occurred!02-19-2019 influenza, seasonal, injectable Patient Objection Devin Lam Other [facility] Other Payers Date Payer Category Payer Unknown [id number] 2.16.84 [id number] 1986 Unknown [id number] 2.16.84 [id number] 1986 Unknown [id number] 2.16.84 [id number] 1986 Unknown [id number] 2.16.84 [id number] 1986 Unknown [id number] 2.16.84 [id number] 1986 Unknown [id number] 2.16.84 [id number] 1986 Unknown [id number] 2.16.84 [id number] 1986 Unknown [id number] 2.16.84 [id number] 1986 Unknown [id number] 2.16.84 [id number] 1986 Unknown [id number] 2.16.840 .[id number] 1986 Unknown [id number] 2.16.840 .[id number] 1986 Unknown [id number] 2.16.840 .[id number] 1986 Unknown [id number] 2.16.840 .[id number] 1959 Unknown [id number] 2.16. [id number] 1959 Unknown [id number] Social History Date Type Detail Facility Start: 02-04-2022 End: 02-25-2022 Tobacco smoking status Never smoked tobacco (finding) [facility] Tobacco smoking status Never [facility] Sex Assigned At Female [facility] Functional Status Date Assessment Result Facility 06-25-2022 Functional Status N/A [facility] Clinical Notes 02-04-2022 to 10-23-2023 Note Date & Type Note Facility 10-23-2023 Note F/U with OB and mate rnal medicine as scheduled [facility] 10-23-2023 Note UTP CARDIOLOGY PROGR ESS NOTE HPI: Jessa Chatman is a 38 y.o. female here for tachycardia during Patient here per Dr. Angel for tachycardia in . She is currently 32w5d along. 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 Angel for tachycardia in . She is currently 32w5d along. FELT STRIP FINISHER started her on metoprolol tartrate 25mg daily a few weeks ago, which as helped with palpitations. HR gets as high as 147 at rest sometimes. This issue went away after the of her last baby. Review of Systems Cardiovascular: Positive for dyspnea on exertion. Neurological: Positive for light-headedness. All other systems reviewed and are negative. [facility] 04-15-2023 Evaluation note Encounter Date Diagnosis Assessment Notes Apr, Spontaneous rupture of tympanic membrane of right ear concurrent with and due to acute suppurative otitis media (ICD-10 - H66.011) [facility] Other 01-11-2023 NoteOPERATIVE NOTE OPERATION DATE: 11/19/2022 PROCEDURE: Suction D AND C. PREOPERATIVE DIAGNOSIS: Missed first trimester. POSTOPERATIVE DIAGNOSIS: Missed first trimester. ANESTHESIA: General. SURGEON: Mouna Angel D.O. LABORATORY EQUIPMENT INSTALLER: None. FINDINGS: Products of conception. SPECIMEN: Products [...] products of conception were removed using a 9-Nicaraguan suction curette. Excellent hemostasis was noted. The patient tolerated the procedure well. Sponge, lap, and needle counts were correct x 2. All instruments were then removed from the patient's vagina. The patient was taken to the Recovery Room in stable condition. [id number] Evaluation + Plan note Diagnostic Tests Pending * UTI ([facility]) 07/03/22 [facility] 08-17-2022 Hospital Discharge instructions Patient [...] Follow these instructions at home: Medicines Take uonk-yag-dyxlcyv and prescription medicines only as told by [...] 10/26/2006 Document Revised: 03/13/2020 Document Reviewed: 03/13/2020 [employer] Patient Education 2020 [employer] logo. 06/25/2022 09:59:21 Urinary Tract Infection, Adult Urinary [...] Treatment for this condition includes: Antibiotic medicine. Oxhk-squ-atkorbr medicines to treat discomfort. Drinking enough water [...] Follow these instructions at home: Medicines Take wcta-dld-odsiqeq and prescription medicines only as told by [...] 08/05/2006 Document Revised: 10/13/2019 Document Reviewed: 05/05/2019 [employer] Patient Education 2020 [employer] logo. [facility] 08-10-2022 Evaluation note* Encounter Date [...] that she can go off it completely. [facility] Other 07-05-2022 Evaluation note* Encounter Date Diagnosis [...] calf. I recommened a consult with a weaver [place]. Patient would like to hold off on the referral for now. [facility] Other 06-08-2022 Evaluation note* Encounter Date Diagnosis [...] or any other dysrhythmias. She voices understanding [facility] Other [id number] Evaluation + Plan note Diagnostic Tests Pending * [facility] Future Appointments Appointment Date:07/02/2022 02:45:00 PM Scheduled Provider:Kwadwo SAEZ MD Location:[facility] Appointment Type:URO Office Visit [facility] Evaluation + Plan note Future Appointments Appointment Date:07/02/2022 02:45:00 PM Scheduled Provider:Kwadwo SAEZ MD Location:[facility] Appointment Type:URO Office Visit Diagnostic Tests Pending * Urine Culture [facility]06[facility]22 [facility] Future Appointments Appointment Date:07/02/2022 02:45:00 PM Scheduled Provider:Kwadwo SAEZ MD Location:[facility] Appointment Type:URO Office Visit Diagnostic Tests Pending * Urine Culture [facility]15[facility]22 [facility] note[facility] InformationNort [employer] Other History general Narrative - Reported* Type Description Date Medical History Anxiety Hospitalization History childbirth 2014 [facility] [employer] Other Hospital course Narrative No data available for this section [facility] No data available for this section [facility] No data available for this section [facility] Summary Purpose Family History No Family [...] acute suppurative otitis media (H66.011) Referral Organization [facility] [place] Referring Provider First Name Devin Referring Provider Last Name Genaro Referring Provider Specialty Family Prac brittanie Referred Organization [facility] Referred Provider Luis MiguelAldo Referred Address ,[place], [place],[address] Referred Provider Specialty Otolaryngolo gy Referral Priority Routine General Notes Higinio Asher 023 12:56:47 PM >Received today. [facility] request us to send the referral and they will call and schedule patient. Referral was fax Clinical Notes Office [phone] Additional Source Comments INFORMATION SOURCE (unrecogn ized section and content) DATE CREATED AUTHOR 02/26/2022 [employer] [facility] DATE CREATED AUTHOR AUTHOR'S ORGANIZ ATION 07/04/2022 [facility] DATE CREATED AUTHOR AUTHOR'S ORGANIZ ATION 07/05/2022 [employer] [facility] DATE CREATED AUTHOR AUTHOR'S ORGANIZ ATION 01/21/2023 [facility] DATE CREATED AUTHOR AUTHOR'S ORGANIZ ATION 10/25/2023 [facility] DATE CREATED AUTHOR AUTHOR'S ORGANIZ ATION 11/27/2023 [facility] EPIC REASON FOR VISIT (unrecogniz ed section and content) weight management/ UTI4 week follow up-weight mgmt.1 month Follow up weight managementClinicalClinical Care Team (unrecognized sect ion and content) Personnel Name: DEVIN LAM DO Address: [address] [place] [address] Personnel Name: DEVIN LAM DO Address: [address] [place] [address] FOR RECORDS PERTAINING TO PATIENTS WHO ARE [...] BE BASED ON THE PRIMARY CLINICAL RECORDS. [facility]. provides no warranty or guarantee of the accuracy or completeness of information in this document.
[2023-12-03 06:20] LABS: Basophils Percent Auto 0.3 % (0.2-2.0); Eosinophils Absolute Auto 0.1 10^3/uL (0.0-0.7); Eosinophils Percent Auto 0.9 % (0.9-7.0); Hematocrit 28.8 % (36.0-48.0); Hemoglobin 9.3 g/dL (12.0-16.0); Immature Granulocytes Abs Auto 0.04 10^3/uL (0.00-0.03); Immature Granulocytes Pct Auto 0.4 % (0.0-0.5); Lymphocytes Absolute Auto 1.3 10^3/uL (1.2-3.8); Lymphocytes Percent Auto 13.1 % (20.5-60.0); Mean Corpuscular HGB Conc 32.3 g/dL (29.9-35.2); Mean Corpuscular Hemoglobin 28.5 pg (26.7-34.0); Mean Corpuscular Volume 88.3 fL (81.0-99.0); Monocytes Absolute Auto 0.6 10^3/uL (0.3-0.8); Monocytes Percent Auto 6.3 % (1.7-12.0); Neutrophils Absolute Auto 7.9 10^3/uL (1.4-6.5); Platelet Count 142 10^3/uL (150-450); Red Blood Count 3.26 10^6/uL (4.20-5.40)
[2023-12-03 06:21] LABS: Bilirubin Urine NEGATIVE (NEGATIVE); Blood Urine NEGATIVE (NEGATIVE); Clarity Urine CLEAR (CLEAR); Color Urine LT. YELLOW (YELLOW); Glucose Urine UA NEGATIVE (NEGATIVE); Ketones Urine NEGATIVE (NEGATIVE); Leukocyte Esterase Urine SMALL (NEGATIVE); Nitrite Urine NEGATIVE (NEGATIVE); Protein Urine NEGATIVE (NEG/TRACE); Urobilinogen Urine 0.2 EU/dL (0.2-1.0)
[2023-12-03] MEDS: 0.9 % SODIUM CHLORIDE 1,000 ML 1000 ML IV ×2 (06:28→07:00)
[2023-12-03 06:32] LABS: Amphetamine Screen Urine NEGATIVE (NEGATIVE); Barbiturates Screen Urine NEGATIVE (NEGATIVE); Benzodiazepines Screen Urine NEGATIVE (NEGATIVE); Buprenorphine Screen Urine NEGATIVE (NEGATIVE); Cannabinoid Screen Urine NEGATIVE (NEGATIVE); Cocaine Screen Urine NEGATIVE (NEGATIVE); Methadone Screen Urine NEGATIVE (NEGATIVE); Methamphetamines Screen Urine NEGATIVE (NEGATIVE); Opiate Screen Urine NEGATIVE (NEGATIVE); Oxycodone Screen Urine NEGATIVE (NEGATIVE); Phencyclidine Screen Urine NEGATIVE (NEGATIVE); Tricyclic Antidepressant Urine NEGATIVE (NEGATIVE)
[2023-12-03 06:34] LABS: Bacteria Urine TRACE #/HPF (NONE SEEN); Cast Seen? NONE SEEN #/LPF (NONE SEEN); Crystals Seen? None Seen #/HPF (None Seen); Mucus Urine SMALL (NONE SEEN); RBC Urine 0-2 #/HPF (0-2); Squamous Epithelial Cell Urine RARE #/LPF (NONE/RARE); WBC Urine 0-2 #/HPF (NONE SEEN)
[2023-12-03] MEDS: METOCLOPRAMIDE HCL 10 MG/2 ML VIAL IVP (07:00)
[2023-12-03] MEDS: CITRIC ACID/SODIUM CITRATE 30 ML SOLUTION ORACIT SHOHL'S SOLN PO (07:00)
[2023-12-03] MEDS: CEFAZOLIN SODIUM/DEXTROSE,ISO 2 GM/50 ML PIGGYBACK IV ×2 (07:42→14:17)
[2023-12-03] MEDS: LACTATED RINGER'S SOLUTION 1,000 ML 50 ML IV (08:30)
[2023-12-03] MEDS: 0.9 % SODIUM CHLORIDE 1,000 ML 125 ML IV (08:34)
--- NOTE | 2023-12-03 08:54 | P.ON_ITS ---
Brief Operative Note Date of procedure: 12/03/23 Pre-op diagnosis: iup at 38wks, desires c/s, ho 4th degree laceration, ho demise at 36w Post-op diagnosis: same as pre-op Procedure: NAME OF PROCEDURE: [ section with bilateral salpingectomy ] PROCEDURE: Patient was taken back to the Operating Room where she was given a spinal anesthesia with Duramorph without difficulty. She was prepped and draped in the normal sterile fashion. A Pfannenstiel skin incision was then made 2?cm above the symphysis pubis and carried down to underlying rectus fascia using a Bovie. The fascia was incised in the midline and extended laterally using Myers scissors. Two Caro clamps were placed on the superior aspect of the fascia and dissected off the underlying rectus muscles. The same was performed on the inferior aspect as well. The muscles were then in the midline. Peritoneum was identified and entered bluntly. The peritoneum was then extended superiorly and inferiorly with good visualization of the bladder. The bladder blade was inserted. Vesicouterine peritoneum was identified, tented up, and entered with Metzenbaum scissors. A bladder flap was then created digitally. The bladder blade was reinserted. A low transverse incision was made on the patient's uterus and extended laterally digitally. The was then delivered atraumatically after the bladder blade was removed in the cephalic position. The cord was clamped and cut. Cord blood was obtained. The infant was handed off to awaiting team. The patient's placenta was spontaneously delivered. The uterus was then exteriorized. The uterus was cleared of all clots and debris. The bladder blade was reinserted. The patient's uterine incision was closed using #0 Vicryl in a running lock fashion. Excellent hemostasis was assured.? The rt tube was identified and grasped with babock, the ligasure was used to transect and ligate the tube in its entirity, this was done on the contralateral side as well. The uterus was then returned to the patient's abdomen. The patient's abdomen was copiously irrigated using warm saline. Peritoneal gutters were cleared of all clots and debris. Again excellent hemostasis was assured. The patient's fascia was closed using #0 Vicryl in a running fashion. The patient's skin was closed using 4-0 Vicryl subcuticularly. The patient tolerated the procedure well. Sponge, lap, and needle counts were correct x2. The patient was taken to the Recovery Room in stable condition. Anesthesia: spinal Surgeon: Rey Angel Furnace Combination Analyst: Saida Lee Estimated blood loss (mL): 575 Pathology: none sent Condition: stable Disposition: PACU Urinary Catheter Management Urinary Catheter Management Urethral: Cath placed during this visit: yes Urethral indwelling: Yes Reason for continuing: assist healing open wound Insertion date: 12/03/23 Insertion time: 06:00
--- NOTE | 2023-12-03 08:56 | PM.OBPRCCS ---
Procedure Pre-op/Post-op diagnoses: Pre-Op/Post-Op Diagnoses Operation Date: 12/03/23 07:30 <No data on this case meets the specified criteria> Procedure: Procedures Operation Date: 12/03/23 07:30 Actual Procedure Side Surgeon p Primary with Bilateral Salpingectomy Bilateral Rey Angel DO Cheesemaker: Christy Roberts Estimated blood loss (mL): 575 Disposition: PACU Anesthesia type: None
[2023-12-03] MEDS: BUPIVACAINE LIPOSOME/PF 266 MG/13.3 ML VIAL INJ (09:09)
[2023-12-03] MEDS: 0.9 % SODIUM CHLORIDE 10 ML VIAL INJ (09:09)
[2023-12-03] MEDS: BUPIVACAINE HCL 0.5% PF 50 MG/10 ML VIAL INJ (09:09)
--- NOTE | 2023-12-03 10:08 | PC.NURSE ---
920 patient arrives at PACU bay 1. Patient sates she is able to feel this scientific technical writer's touch up to rib cage and is able to move both feet. Denies any pain.
[2023-12-03] MEDS: OXYTOCIN/0.9 % SODIUM CHLORIDE 20 UNITS/1,000 ML PLAST..BAG 200 UNIT IV (10:15)
[2023-12-03] MEDS: ACETAMINOPHEN 500 MG TABLET 1000 MG PO ×2 (11:57→19:21)
[2023-12-03] MEDS: KETOROLAC TROMETHAMINE 30 MG/ML VIAL IVP ×2 (14:16→20:58)
[2023-12-03] MEDS: ENOXAPARIN SODIUM 40 MG/0.4 ML SYRINGE SUBQ (20:59)
[2023-12-04] VITALS (8 sets, daily range): BP systolic 116–128; BP diastolic 69–80; PULSE 88; RESP 16; TEMP 36.6–37.1
[2023-12-04] MEDS: KETOROLAC TROMETHAMINE 30 MG/ML VIAL IVP (04:02)
[2023-12-04] MEDS: ACETAMINOPHEN 500 MG TABLET 1000 MG PO ×3 (04:57→20:46)
[2023-12-04] MEDS: SIMETHICONE 80 MG TAB.CHEW PO ×2 (04:57→19:00)
[2023-12-04 06:08] LABS: Basophils Percent Auto 0.3 % (0.2-2.0); Eosinophils Percent Auto 0.3 % (0.9-7.0); Hemoglobin 7.3 g/dL (12.0-16.0); Immature Granulocytes Abs Auto 0.04 10^3/uL (0.00-0.03); Immature Granulocytes Pct Auto 0.4 % (0.0-0.5); Lymphocytes Absolute Auto 1.8 10^3/uL (1.2-3.8); Lymphocytes Percent Auto 20.2 % (20.5-60.0); Mean Corpuscular HGB Conc 30.7 g/dL (29.9-35.2); Mean Corpuscular Hemoglobin 27.8 pg (26.7-34.0); Mean Corpuscular Volume 90.5 fL (81.0-99.0); Mean Platelet Volume 11.3 fL (9.5-13.5); Monocytes Absolute Auto 0.7 10^3/uL (0.3-0.8); Monocytes Percent Auto 7.3 % (1.7-12.0); Neutrophils Absolute Auto 6.5 10^3/uL (1.4-6.5); Neutrophils Percent Auto 71.5 % (43.0-75.0); Platelet Count 150 10^3/uL (150-450); Red Blood Count 2.63 10^6/uL (4.20-5.40); White Blood Count 9.1 10^3/uL (4.0-11.0)
[2023-12-04 06:20] LABS: Hematocrit 23.8 % (36.0-48.0)
--- NOTE | 2023-12-04 07:33 | W.PC.ACHO ---
Registration Status: ADM IN Primary Language: S[place] T[place]an Preferred Language: [place] Report received from Nathalie Roberts RN at 0701. Active Medications Generic Name Dose Route Start Last Admin Trade Name Freq PRN Reason Stop Dose Admin Acetaminophen 1,000 mg 12/03/23 12:00 12/04/23 04:57 Acetaminophen 500 Mg Tablet PO 1,000 mg Q8H TYLOR Administration Al Hydroxide/Mg Hydroxide 2,400 mg 12/03/23 08:57 Magnesium Hydroxide 2,400 Mg/10 Ml Oral.Susp PO Q6H PRN Dyspepsia Diphenhydramine HCl 25 mg 12/03/23 08:57 Diphenhydramine Hcl 50 Mg/Ml (1ml) Vial IV 12/04/23 08:58 Q6H PRN Itching Docusate Sodium 100 mg 12/04/23 09:00 Docusate Sodium 100 Mg Capsule PO BID TYLOR Enoxaparin Sodium 40 mg 12/03/23 21:00 12/03/23 20:59 Enoxaparin Sodium 40 Mg/0.4 Ml Syringe SUBQ 40 mg Q24H TYLOR Administration Ferrous Sulfate 325 mg 12/04/23 09:00 Ferrous Sulfate 325 Mg Tablet PO BID TYLOR Gabapentin 300 mg 12/03/23 11:21 Gabapentin 300 Mg Capsule PO Q6H PRN Pain Sodium Chloride 1,000 mls @ 125 mls/hr 12/03/23 09:00 12/03/23 08:34 Sodium Chloride 0.9% 1,000 Ml IV 125 mls/hr .Q8H TYLOR Administration Ibuprofen 800 mg 12/04/23 09:00 Ibuprofen 400 Mg Tablet PO Q6H TYLOR Ondansetron HCl 4 mg 12/03/23 08:57 Ondansetron Pf 4 Mg/2 Ml Vial IV Q6H PRN Nausea And Vomiting Ondansetron HCl 4 mg 12/03/23 08:57 Ondansetron 4 Mg Rapdis Tablet PO Q6H PRN Nausea And Vomiting Oxycodone HCl 5 mg 12/03/23 11:21 Oxycodone Hcl 5 Mg Tablet PO Q4H PRN Pain Senna 17.2 mg 12/03/23 22:00 Sennosides 8.6 Mg Tablet PO QHS PRN Constipation Simethicone 80 mg 12/03/23 08:57 12/04/23 04:57 Simethicone 80 Mg Tab.Chew PO 80 mg QID PRN Administration Abdominal Distention Diet Category Date Time Status Regular Consistency Diet Diet 12/03/23 08:57 Active Respiratory Pulse Oximetry 98 Pulse Oximetry 98 Pulse Oximetry 98 Pulse Oximetry 98 Pulse Oximetry 98 Pulse Oximetry 98 Pulse Oximetry 98 Pulse Oximetry 98 Pulse Oximetry 98 Pulse Oximetry 98 Pulse Oximetry 99 Pulse Oximetry 97 Pulse Oximetry 98 Pulse Oximetry 97 Pulse Oximetry 98 Pulse Oximetry 99 Pulse Oximetry 98 Oxygen Delivery Method Room Air Oxygen Delivery Method Room Air Oxygen Delivery Method Room Air Oxygen Delivery Method Room Air Oxygen Delivery Method Room Air Oxygen Delivery Method Room Air Oxygen Delivery Method Room Air Oxygen Delivery Method Room Air Oxygen Delivery Method Room Air Oxygen Delivery Method Room Air Oxygen Delivery Method Room Air Oxygen Delivery Method Room Air Oxygen Delivery Method Room Air Oxygen Delivery Method Room Air Oxygen Delivery Method Room Air Oxygen Delivery Method Room Air Oxygen Delivery Method Room Air Cardiology Heart Sounds Strong,Regular Heart Sounds Strong,Regular Heart Sounds Strong,Regular Renal Bladder Pattern Continent Bladder Pattern Continent Bladder Pattern Continent Bladder Pattern Continent Catheter Urinary Catheter Date of 12/03/23 Insertion [Urethral] Urinary Catheter Time of 06:00 Insertion [Urethral]
[2023-12-04] MEDS: DOCUSATE SODIUM 100 MG CAPSULE PO ×2 (08:18→20:46)
[2023-12-04] MEDS: IBUPROFEN 400 MG TABLET 800 MG PO ×2 (08:20→16:52)
[2023-12-04] MEDS: FERROUS SULFATE 325 MG TABLET PO ×2 (08:20→20:46)
[2023-12-04] MEDS: GABAPENTIN 300 MG CAPSULE PO ×2 (09:44→18:38)
--- NOTE | 2023-12-04 14:43 | P.OBPN_ITS ---
OB - PN: Subj Subjective Patient comments: no complaints and pain well controlled Exam Constitutional Vital Signs, click to edit/add: Last Vital Signs Temp 97.8 F 12/04/23 08:15 Pulse 88 12/04/23 04:06 Resp 16 12/04/23 08:15 BP 123/71 12/04/23 04:06 Pulse Ox 98 12/03/23 15:57 O2 Del Method Room Air 12/04/23 08:15 Documenting provider has reviewed patient's vital signs: yes Common normals: no apparent distress, average body habitus, oriented x3, no limitations, healthy appearing and alert HENMT Common normals: normocephalic and head/scalp atraumatic Eye Pupil: PERRL and accommodation reflex normal Neck & C-Spine Common normals: full ROM and supple Respiratory Common normals: normal respiratory effort Cardio Common normals: regular rate and regular rhythm GI Common normals: Normal to inspection, nondistended, normoactive bowel sounds present, soft to palpation and non-tender Common normals: no CVA tenderness Back & Pelvis Common normals: thoracic and lumbar spine normal to inspection and no thoracic nor lumbar tenderness Extremity Common normals: normal to inspection, full ROM and no calf tenderness Neuro Common normals: CN's II-XII intact bilaterally, moves all extremities, no focal motor deficits and no sensory deficits noted Psych Common normals: mental status grossly normal, thought process normal, cooperative, affect normal and speech normal Results Labs Labs: Short CBC 12/04/23 Range/Units 05:48 WBC 9.1 (4.0-11.0) 10^3/uL Hgb 7.3 L (12.0-16.0) g/dL Hct 23.8 L* (36.0-48.0) % Plt Count 150 (150-450) 10^3/uL Urinary Catheter Management Urinary Catheter Management Urethral: Cath placed during this visit: yes, but has since been removed by the nurse Urethral indwelling: Yes Insertion date: 12/03/23 Insertion time: 06:00 Removal date: 12/04/23 Removal time: 08:00 OB - PN: A/P Assessment and Plan (1) Delivery by section: Assessment and Plan: scheduled primary CS for history of demise second trimester and psycho- social indications Plan - day: 1 Plan: routine postop care Time Spent with Patient Time: Total time spent is greater than 50% in coordination of care (as documented) at patient's floor/unit and/or counseling patient: Total time spent with greater than 50% in coordination of care (as documented) at patient's floor/unit and/or counseling patient: less than 15 minutes
--- NOTE | 2023-12-04 18:32 | W.PC.ACHO ---
Registration Status: ADM IN Primary Language: Russian Preferred Language: Russian Report given to Tali DUMONT. Active Medications Generic Name Dose Route Start Last Admin Trade Name Freq PRN Reason Stop Dose Admin Acetaminophen 1,000 mg 12/03/23 12:00 12/04/23 12:35 Acetaminophen 500 Mg Tablet PO 1,000 mg Q8H TYLOR Administration Al Hydroxide/Mg Hydroxide 2,400 mg 12/03/23 08:57 Magnesium Hydroxide 2,400 Mg/10 Ml Oral.Susp PO Q6H PRN Dyspepsia Docusate Sodium 100 mg 12/04/23 09:00 12/04/23 08:18 Docusate Sodium 100 Mg Capsule PO 100 mg BID TYLOR Administration Enoxaparin Sodium 40 mg 12/03/23 21:00 12/03/23 20:59 Enoxaparin Sodium 40 Mg/0.4 Ml Syringe SUBQ 40 mg Q24H TYLOR Administration Ferrous Sulfate 325 mg 12/04/23 09:00 12/04/23 08:20 Ferrous Sulfate 325 Mg Tablet PO 325 mg BID TYLOR Administration Gabapentin 300 mg 12/03/23 11:21 12/04/23 09:44 Gabapentin 300 Mg Capsule PO 300 mg Q6H PRN Administration Pain Sodium Chloride 1,000 mls @ 125 mls/hr 12/03/23 09:00 12/03/23 08:34 Sodium Chloride 0.9% 1,000 Ml IV 125 mls/hr .Q8H TYLOR Administration Ibuprofen 800 mg 12/04/23 09:00 12/04/23 16:52 Ibuprofen 400 Mg Tablet PO 800 mg Q6H TYLOR Administration Ondansetron HCl 4 mg 12/03/23 08:57 Ondansetron Pf 4 Mg/2 Ml Vial IV Q6H PRN Nausea And Vomiting Ondansetron HCl 4 mg 12/03/23 08:57 Ondansetron 4 Mg Rapdis Tablet PO Q6H PRN Nausea And Vomiting Oxycodone HCl 5 mg 12/03/23 11:21 Oxycodone Hcl 5 Mg Tablet PO Q4H PRN Pain Senna 17.2 mg 12/03/23 22:00 Sennosides 8.6 Mg Tablet PO QHS PRN Constipation Simethicone 80 mg 12/03/23 08:57 12/04/23 04:57 Simethicone 80 Mg Tab.Chew PO 80 mg QID PRN Administration Abdominal Distention Respiratory Oxygen Delivery Method Room Air Oxygen Delivery Method Room Air Oxygen Delivery Method Room Air Oxygen Delivery Method Room Air Oxygen Delivery Method Room Air Oxygen Delivery Method Room Air Oxygen Delivery Method Room Air Oxygen Delivery Method Room Air Oxygen Delivery Method Room Air Cardiology Heart Sounds Strong,Regular Heart Sounds Strong,Regular Heart Sounds Strong,Regular Heart Sounds Strong,Regular Bowels Date of Last Bowel Movement 12/04/23 Renal Bladder Pattern Continent Bladder Pattern Continent Bladder Pattern Continent Bladder Pattern Continent Bladder Pattern Continent Catheter Urinary Catheter Date of 12/03/23 Insertion [Urethral] Urinary Catheter Time of 06:00 Insertion [Urethral] Date Urinary Catheter Removed 12/04/23 [Urethral] Time Urinary Catheter 08:00 Discontinued [Urethral]
[2023-12-04] MEDS: ENOXAPARIN SODIUM 40 MG/0.4 ML SYRINGE SUBQ (20:46)
[2023-12-05] MEDS: IBUPROFEN 400 MG TABLET 800 MG PO ×2 (04:08→12:55)
--- NOTE | 2023-12-05 07:08 | W.PC.ACHO ---
Registration Status: ADM IN Primary Language: Algerian Preferred Language: Algerian Report given to Johnathon Wilder RN Active Medications Generic Name Dose Route Start Last Admin Trade Name Freq PRN Reason Stop Dose Admin Acetaminophen 1,000 mg 12/03/23 12:00 12/04/23 20:46 Acetaminophen 500 Mg Tablet PO 1,000 mg Q8H TYLOR Administration Al Hydroxide/Mg Hydroxide 2,400 mg 12/03/23 08:57 Magnesium Hydroxide 2,400 Mg/10 Ml Oral.Susp PO Q6H PRN Dyspepsia Docusate Sodium 100 mg 12/04/23 09:00 12/04/23 20:46 Docusate Sodium 100 Mg Capsule PO 100 mg BID TYLOR Administration Enoxaparin Sodium 40 mg 12/03/23 21:00 12/04/23 20:46 Enoxaparin Sodium 40 Mg/0.4 Ml Syringe SUBQ 40 mg Q24H TYLOR Administration Ferrous Sulfate 325 mg 12/04/23 09:00 12/04/23 20:46 Ferrous Sulfate 325 Mg Tablet PO 325 mg BID TYLOR Administration Gabapentin 300 mg 12/03/23 11:21 12/04/23 18:38 Gabapentin 300 Mg Capsule PO 300 mg Q6H PRN Administration Pain Sodium Chloride 1,000 mls @ 125 mls/hr 12/03/23 09:00 12/03/23 08:34 Sodium Chloride 0.9% 1,000 Ml IV 125 mls/hr .Q8H TYLOR Administration Ibuprofen 800 mg 12/04/23 09:00 12/05/23 04:08 Ibuprofen 400 Mg Tablet PO 800 mg Q6H TYLOR Administration Ondansetron HCl 4 mg 12/03/23 08:57 Ondansetron Pf 4 Mg/2 Ml Vial IV Q6H PRN Nausea And Vomiting Ondansetron HCl 4 mg 12/03/23 08:57 Ondansetron 4 Mg Rapdis Tablet PO Q6H PRN Nausea And Vomiting Oxycodone HCl 5 mg 12/03/23 11:21 Oxycodone Hcl 5 Mg Tablet PO Q4H PRN Pain Senna 17.2 mg 12/03/23 22:00 Sennosides 8.6 Mg Tablet PO QHS PRN Constipation Simethicone 80 mg 12/03/23 08:57 12/04/23 19:00 Simethicone 80 Mg Tab.Chew PO 80 mg QID PRN Administration Abdominal Distention Respiratory Oxygen Delivery Method Room Air Oxygen Delivery Method Room Air Oxygen Delivery Method Room Air Oxygen Delivery Method Room Air Cardiology Heart Sounds Strong,Regular Heart Sounds Strong,Regular Bowels Date of Last Bowel Movement 12/04/23 Date of Last Bowel Movement 12/04/23 Renal Bladder Pattern Continent Bladder Pattern Continent Bladder Pattern Continent Catheter Urinary Catheter Date of 12/03/23 Insertion [Urethral] Urinary Catheter Time of 06:00 Insertion [Urethral] Date Urinary Catheter Removed 12/04/23 [Urethral] Time Urinary Catheter 08:00 Discontinued [Urethral]
--- NOTE | 2023-12-05 07:23 | PM.OBPN ---
OB - PN: Subj Subjective Patient comments: no complaints, pain well controlled and tolerating diet Exam Constitutional Vital Signs, click to edit/add: Last Vital Signs Temp 97.9 F 12/04/23 23:44 Pulse 88 12/04/23 04:06 Resp 16 12/04/23 23:44 BP 122/74 12/04/23 23:44 Pulse Ox 98 12/03/23 15:57 O2 Del Method Room Air 12/04/23 23:41 GI Inspection: normal to inspection Other: Incision dry and intact Other: minimal bleeding Urinary Catheter Management Urinary Catheter Management Urethral: Cath placed during this visit: yes, but has since been removed by the nurse Urethral indwelling: Yes Insertion date: 12/03/23 Insertion time: 06:00 Removal date: 12/04/23 Removal time: 08:00 OB - PN: A/P Assessment and Plan (1) Delivery by section: Assessment and Plan: POD #2 status post C/S with [facility] requesting to go home Plan prescriptions written will follow up with her OB in 1 weeks Plan - day: 2 Plan: routine postop care and discharge home Time Spent with Patient Time: Total time spent is greater than 50% in coordination of care (as documented) at patient's floor/unit and/or counseling patient: Total time spent with greater than 50% in coordination of care (as documented) at patient's floor/unit and/or counseling patient: less than 15 minutes
--- NOTE | 2023-12-05 07:28 | PM.OBDS ---
DS: Providers Provider Date of admission: 12/03/23 05:29 Primary care physician: Non-Staff Physician, Consults: 12/03/23 Consult to Anesthesiology Routine Consulting Provider: Ruperto Cummins Reason for consultation: c/s DS: Diagnosis Discharge Diagnosis (1) Delivery by section: Assessment and plan: Term , Desiring sterilization Plan status post section with [facility] Home OB - DS: Summary Hospital Course Hospital Course: normal hospital course Peripartum Data - Procedures: Procedures Operation Date: 12/03/23 07:30 Actual Procedure Side Surgeon p Primary with Bilateral Salpingectomy Bilateral Rey Angel DO Peripartum Data - Vaginal Delivery Procedures: Procedures Operation Date: 12/03/23 07:30 Actual Procedure Side Surgeon p Primary with Bilateral Salpingectomy Bilateral Rey Angel DO Complications complications: none Infant Delivery method: elective section Gender: male Discharge plan: home Status at Discharge Functional status at discharge: independent ambulation Time Spent with Patient Time attestation: Total time spent providing and/or coordinating discharge services: Time spent: less than 30 minutes Exam Constitutional Vital Signs, click to edit/add: Last Vital Signs Temp 97.9 F 12/04/23 23:44 Pulse 88 12/04/23 04:06 Resp 16 12/04/23 23:44 BP 122/74 12/04/23 23:44 Pulse Ox 98 12/03/23 15:57 O2 Del Method Room Air 12/04/23 23:41 Discharge Plan Discharge Disposition: Home, Self-Care Condition: Good Assessment: POD#2 Home Plan of Treatment: Home Discharge Medications: No Action aspirin 81 mg capsule 81 mg PO DAILY iron 18 mg tablet 18 mg PO DAILY Hold Instructions: patient states she is not taking docosahexaenoic acid [ DHA] 1 cap PO DAILY metoprolol tartrate 25 mg tablet 25 mg PO DAILY Activity: resume usual activities as tolerated Activity Detail: nothing per vagina for 6 weeks Diet: advance to your usual diet Forms: Portal Instructions Follow Up Appointments: 1 week
[2023-12-05] MEDS: ACETAMINOPHEN 500 MG TABLET 1000 MG PO (07:31)
[2023-12-05 08:58] VITALS: BP 124/91; PULSE 91; RESP 16; TEMP 36.6
[2023-12-05] MEDS: DOCUSATE SODIUM 100 MG CAPSULE PO (08:58)
[2023-12-05] MEDS: FERROUS SULFATE 325 MG TABLET PO (08:58)
[2023-12-05] MEDS: GABAPENTIN 300 MG CAPSULE PO (10:50)
== END 2023-12-05 12:50 | disposition home or self-care (01) | DRG 785 ==
PROVIDERS: Admitting Provider Obstetrics & Gynecology; Visit Provider Obstetrics & Gynecology
PROC: 10D00Z1 Extraction of Products of Conception, Low, Open Approach (ICD-10-PCS; CPT 59514; principal; 2023-12-03 07:30)
DX: O36.63X0 Maternal care for excessive fetal growth, third trimester, not applicable or unspecified (principal); Z3A.38 38 weeks gestation of pregnancy; Z37.0 Single live birth; Z87.898 Personal history of other specified conditions
CPT/HCPCS: 36415; 51702; 64488; 80307; 81001; 85025; 86850; 86900; 86901; 88302; 96372; 96374; 96375; 96376; J0665; J0690; J1100; J1650; J1885; J2274; J2405; J2590; J2765

== ENCOUNTER 2024-07-18 20:26 | Outpatient (REF) | payer BC, SELFPAY ==
--- OUTSIDE RECORDS SUMMARY | 2024-07-18 20:30 | XMS_ITS | CCD ---
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 Name Role Phone DEVIN LAM Primary Care Physician Devin Lam Unavailable STANLEY ., DR FREIRE Attending Unavailable STANLEY ., DR FREIRE Consulting Unavailable STANLEY ., DR FREIRE Primary Care Unavailable STANLEY ., DR FREIRE Admitting Unavailable STANLEY ., DR FREIRE Attending Unavailable STANLEY ., DR FREIRE Admitting Unavailable STANLEY ., DR FREIRE Consulting Unavailable STANLEY ., DR FREIRE Primary Care Unavailable ZIEBER, DR LUIS MANUEL Andrade Consulting Unavailable STANLEY ., DR FREIRE Attending Unavailable STANLEY ., DR FREIRE Primary Care Unavailable STANLEY ., DR FREIRE Consulting Unavailable STANLEY ., DR FREIRE Admitting Unavailable STANLEY ., DR FREIRE Attending Unavailable STANLEY ., DR FREIRE Admitting Unavailable STANLEY ., DR FREIRE Primary Care Unavailable STANLEY ., DR FREIRE Consulting Unavailable STANLEY ., DR FREIRE Consulting Unavailable STANLEY ., DR FREIRE Primary Care Unavailable TSANLEY ., DR FREIRE Admitting Unavailable STANLEY ., DR FREIRE Attending Unavailable STANLEY ., DR FREIRE Admitting Unavailable STANLEY ., DR FREIRE Attending Unavailable STANLEY ., DR FREIRE Consulting Unavailable STANLEY ., DR FREIRE Primary Care Unavailable STANLEY ., DR FREIRE Attending Unavailable STANLEY ., DR FREIRE Primary Care Unavailable STANLEY ., DR FREIRE Admitting Unavailable STANLEY ., DR FREIRE Consulting Unavailable STANELY ., DR FREIRE Primary Care Unavailable STANLEY ., DR FREIRE Attending Unavailable STANLEY ., DR FREIRE Admitting Unavailable STANLEY ., DR FREIRE Consulting Unavailable RUCHI FRANK Consulting Unavailable KIMMY MALIK Consulting Unavailable EMMANUEL KHAN Consulting Unavailable SHEBA LEDESMA Consulting Unavailable ARACELI MCKENZIE Attending Unavailable DO Devin Lam Primary Care Provider Rey Angel Attending Provider STANLEY, REY Attending Unavailable STANLEY, REY Attending Unavailable STANLEY, REY Attending Unavailable STANLEY, REY Attending Unavailable GEOFFREY CAMPBELL Attending Unavailable STANLEY, REY Attending Unavailable STANLEY, REY Attending Unavailable DO Devin Lam Primary Care Provider [phone] DO Devin Lam Attending Provider Stanley, Rey Admitting Unavailable Stanley, Rey Attending Unavailable Devin Lam Primary Care Unavailable Devin Lam Admitting Unavailable Devin Lam Attending Unavailable Devin Lam Primary Care Unavailable Allergies Allergy Classification Reported Allergen(s) Allergy Type Date of Onset Reaction(s) Facility Acetaminophen (1 source) Acetaminophen Drug Allergy 04-26-20 [facility] Banana Extract (1 source) Banana Extract Drug Allergy 04-26-20 [facility] Melons (1 source) Melon Food Allergy 04-26-20 [facility] Opioid Agonists (1 source) HYDROcodone Drug Allergy 04-26-20 [facility] (12 sources) Acetaminophen / HYDROcodone; Translations: [acetaminophen-hy drocodone] Drug Allergy Nausea (finding) [facility] (14 sources) Banana Extract; Translations: [Banana] Drug Allergy 09-10-20 Itching (finding) [facility] (9 sources) Melon; Translations: [melon] Drug allergy 09-10-20 20 Itching (finding) [facility] (5 sources) Melon Propensity to adverse reactions Unknown Mosec, Mobile Secretary Other (1 source) Acetaminophen / HYDROcodone Drug Allergy 09-10-20 [facility] Repository (1 source) Acetaminophen / HYDROcodone; Translations: [HYDROCODONE-ACET AMINOPHEN] Drug Allergy 04-10-20 [facility] Repository (1 source) Acetaminophen Drug Allergy 04-26-20 vomiting [facility] (1 source) HYDROcodone Drug Allergy 04-26-20 24 vomiting [facility] Medications Current Medications Medication Drug Class(es) Dates [...] day(s), # 90 cap(s), Refills(s) 0, [facility]acy: [email or web address], 162, cm, 02/25/22 14:21:00 EDT, Height/Length Dosing, 75, kg, 02/25/22 14:21:00 EDT, Weight Dosing Start Date: 02/25/22 Stop Date: 05/26/22 Status: Ordered azithromycin 250 mg oral tablet (2 sources) Macrolide Antimicrobial Start: 01-19-2023 Zithromax Z-Higinio 250 MG as directed Orally Jan, Active betamethasone 1 mg/ml topical cream (1 source) Corticosteroid Start: 04-26-2024 Betamethasone Valerate Active 1 APPLIC TOPICAL Three times daily 45 April 26, 2024 12:00am Calcium (2 sources) Phosphate Binder, Calcium Start: 03-09-2015 Calcium 500+D oral tablet, chewable Refill(s) 0 Start Date: 03/09/15 Status: Ordered cephalexin 500 mg oral capsule (1 source) Cephalosporin Antibacterial Start: 02-04-2022 take 1 capsule by mouth once daily Keflex 500 mg Cap See Instructions, 1 cap po day before procedure and 1 cap po after procedure, # 2 cap(s), Refills(s) 0, [facility]acy: [email or web address], 162, cm, 02/04/22 14:57:00 EDT, Height/Length Dosing, 75, kg, 02/04/22 14:57:00 EDT, Weight Dosing Start Date: 02/04/22 Status: Ordered Docusate (9 sources) Start: 02-04-2022 take 1 mg by mouth twice daily Dulcolax Stool Softener mg, Oral, BID, Refills(s) 0 Start Date: 02/04/22 Status: Ordered Start: 03-09-2015 take 1 capsule by [facility] twice daily as needed for [...] by mouth every twenty-four hours Norethindron-Ethinyl Estrad-Fe 1-20/-30/1-35 MG-MCG 1 tablet Orally Once a day [...] Status: Ordered take 1 capsule by mo [facility] once daily at bedtime Macrobid 100 [...] Ordered Start: 06-18-[address] [facility] every twenty-four hours Adipex-P 37.5 MG 1 tablet Orally Once a day for 30 days Jun, Active Start: 05-13-20[address] [facility] every twenty-four hours Adipex-P 37.5 MG 1 tablet Orally Once a day for 30 days May, Active Start: 04-16-20[address] [facility] every twenty-four hours Adipex-P 37.5 MG 1 [...] 10 day(s), 20 tab(s), Refill(s) 0, [id number], 162, cm, 02/25/22 14:21:00 EDT, Height/Length Dosing, 75, kg, 02/25/22 14:21:00 EDT, Weight Dosing Start Date: 04/15/22 Stop Date: 04/25/22 Status: Ordered 24 hr venlafaxine 37.5 mg extended release oral capsule (1 source) Serotonin and Norepinephrine Reuptake Inhibitor Start: 03-18-2024 take 1 capsule by mouth once daily Venlafaxine (Effexor Xr) 37.5 mg capsule,extended release 24hr Active 37.5 MG PO Daily March 18, 2024 12:00am Vitafol Ultra oral capsule (4 sources) Start: 03-09-2015 Vitafol Ultra oral capsule 1 cap(s), Oral, Daily, 90 cap(s), Refill(s) 4 Start Date: 03/09/15 Status: Ordered Completed/Discontinued Medications Medication Drug Class(es) Dates Sig (Normalized) Sig (Original) citalopram 20 mg oral tablet (11 sources) Serotonin Reuptake Inhibitor Start: 04-25-2024 End: 04-26-2024 take 20 mg by mouth once daily Citalopram Discontinued 20 MG PO Daily April 25, 2024 12:00am April 26, 2024 2:12pm Start: 02-04-2022 take 1 mg by mouth once daily CeleXA 20 mg Tab mg tab(s), Oral, Daily, Refills(s) 0 Start Date: 02/04/22 Status: Ordered take 0.5 tablet by m outh every twenty-four hours Citalopram Hydrobromide 20 MG 0.5 tablet Orally Once a day Active Problems Active Problems Problem Classification Problem Date Documented Date Episodic/Chronic Anxiety disorders (13 sources) Mixed anxiety and depressive disorder; Translations: [Other specified anxiety disorders] Onset: 04-16-2022 Resolved: 06-18-2022 Chronic Calculus of urinary tract (7 sources) Kidney stone; Translations: [Calculus of kidney] Onset: 06-25-2022 02-25-2022 Episodic Cardiac dysrhythmias (10 sources) Tachycardia; Translations: [Tachycardia, unspecified] Onset: 04-16-2022 Resolved: 04-16-2022 02-03-2022 Episodic Disorders of lipid metabolism (8 sources) Hyperlipidemia; Translations: [Hyperlipidemia, unspecified] Onset: 04-30-2024 04-26-2024 Chronic Immunizations and screening for infectious disease (2 sources) Encounter for screening for human papillomavirus (HPV); Translations: [Contact with and (suspected) exposure to infections with a predominantly sexual mode of transmission] Onset: 11-14-2022 Episodic Menstrual disorders (4 sources) Amenorrhea, unspecified; Translations: [AMENORRHEA UNSPECIFIED] Onset: 11-12-2022 Chronic Mood disorders (2 sources) Mood swings; Translations: [Emotional lability] 04-26-2024 Episodic Neoplasms of unspecified nature or uncertain behavior (2 sources) Neoplasm of uncertain behavior of skin; Translations: [Neoplasm of uncertain behavior of skin] 04-26-2024 Episodic Other complications of (5 sources) Missed ; [...] Test Name Value Interpretation Reference Range Facility Alanine aminotransferase [En zymatic activity/volume] in Serum or PlasmaOrdered By: Devin Lam on 04-30-2024 ALT [Catalytic activity/Vol] 19 U/L Normal 7-52 [facility] Comment on above: Performed By: #### T SH3, LIPID, CMP, CBC #### [address] Albumin [Mass/volume] in Ser um or Plasma by Bromocresol green (BCG) dye binding methoOrdered By: Devin Lam on 04-30-2024 Albumin BCG dye [Mass/Vol] 4.6 g/dL 3.5-5.7 [facility] Alkaline phosphatase [Enzyma tic activity/volume] in Serum or PlasmaOrdered By: Devin Lam on 04-30-2024 ALP [Catalytic activity/Vol] 71 U/L Normal 34-104 [facility] Comment on above: Performed By: #### T SH3, LIPID, CMP, CBC #### [address] Aspartate aminotransferase [ Enzymatic activity/volume] in Serum or PlasmaOrdered By: Devin Lam on 04-30-2024 AST [Catalytic activity/Vol] 23 U/L Normal 13-39 [facility] Comment on above: Performed By: #### T SH3, LIPID, CMP, CBC #### [address] Automated basophil %Ordered By: Devin Lam on 04-30-2024 Basophils/100 WBC (Bld) 0.9 % Normal . [facility] Comment on above: Performed By: #### T SH3, LIPID, CMP, CBC #### [address] Automated basophil countOrde red By: Devin Lam on 04-30-2024 Basophils (Bld) [#/Vol] 0.0 10*3/uL Normal 0.0-0.2 [facility] Comment on above: Result Comment: PERF ORMED BY: [place] [address] PATHOLOGIST SERVER SYSTEMS ADMINISTRATOR FARHAD MORGAN M.D. Performed By: #### T SH3, LIPID, CMP, CBC #### [address] Automated blood monocyte cou ntOrdered By: Devin Lam on 04-30-2024 Monocytes (Bld) [#/Vol] 0.4 10*3/uL Normal 0.0-0.8 [facility] Comment on above: Performed By: #### T SH3, LIPID, CMP, CBC #### [address] Automated eosinophil %Ordere d By: Devin Lam on 04-30-2024 Eosinophils/100 WBC (Bld) 2.9 % Normal . [facility] Comment on above: Performed By: #### T SH3, LIPID, CMP, CBC #### [address] Automated eosinophil countOr dered By: Devin Lam on 04-30-2024 Eosinophils (Bld) [#/Vol] 0.2 10*3/uL Normal 0.0-0.45 [facility] Comment on above: Performed By: #### T SH3, LIPID, CMP, CBC #### [address] Automated monocyte %Ordered By: Devin Lam on 04-30-2024 Monocytes/100 WBC (Bld) 6.7 % Normal . [facility] Comment on above: Performed By: #### T SH3, LIPID, CMP, CBC #### [address] Automated neutrophil %Ordere d By: Devin Lam on 04-30-2024 Neutrophils/100 WBC (Bld) 58.1 % Normal . [facility] Comment on above: Performed By: #### T SH3, LIPID, CMP, CBC #### [address] Bilirubin.total [Mass/volume ] in Serum or PlasmaOrdered By: Devin Lam on 04-30-2024 Bilirubin [Mass/Vol] 0.6 mg/dL Normal 0.3-1.0 [facility] Comment on above: Performed By: #### T SH3, LIPID, CMP, CBC #### [address] Calcium [Mass/volume] in Ser um or PlasmaOrdered By: Devin Lam on 04-30-2024 Calcium [Mass/Vol] 9.0 mg/dL Normal 8.6-10.3 [facility] Comment on above: Performed By: #### T SH3, LIPID, CMP, CBC #### [address] Carbon dioxide, total [Moles /volume] in Serum or PlasmaOrdered By: Devin Lam on 04-30-2024 CO2 [Moles/Vol] 26.8 mmol/L Normal 21.0-31.0 [facility] Comment on above: Performed By: #### T SH3, LIPID, CMP, CBC #### [facility] [address] [place] [address] [place] Chloride [Moles/volume] in S horacio or PlasmaOrdered By: Devin Lam on 04-30-2024 Chloride [Moles/Vol] 105 mmol/L Normal 98-107 [facility] Comment on above: Performed By: #### T SH3, LIPID, CMP, CBC #### [facility] [address] [place] [address] [place] Cholesterol [Mass/volume] in Serum or PlasmaOrdered By: Devin Lam on 04-30-2024 Cholesterol [Mass/Vol] 193 mg/dL Normal 140-200 [facility] Comment on above: Chol less than 200 m g/dl low riskChol 201-239 mg/dl borderline riskChol 240 mg/dl and greater high risk Result Comment: Chol less than 200 mg/dl low risk Chol 201-239 mg/dl borderline risk Chol 240 mg/dl and greater high risk Performed By: #### T SH3, LIPID, CMP, CBC #### [facility] [address] Cholesterol in LDL Calc [Mas s/Vol]Ordered By: Devin Lam on 04-30-2024 Cholesterol in LDL [Mass/Vol] 111 mg/dL 0-100 [facility] Comment on above: LDL ATP III CLASSIFI CATIONLDL less than 100 mg/dL OptimalLDL 100-129 mg/dL Near or above optimalLDL 130-159 mg/dL Borderline highLDL 160-189 mg/dL HighLDL greater than 189 mg/dL Very high Cholesterol in VLDL Calc [Ma ss/Vol]Ordered By: Devin Lam on 04-30-2024 Cholesterol in VLDL [Mass/Vol] 11 mg/dL [facility] Complete Blood Count Auto Di ffon 04-30-2024 Mean Corpuscular HGB Conc 32.4 g/dL Normal 32.0-35.0 [facility] Comment on above: Performed By: #### T SH3, LIPID, CMP, CBC #### [facility] [address] [place] [address] [place] NRBC% 0.0 /100{WBC} Normal 0-0.5 [facility] Comment on above: Performed By: #### T SH3, LIPID, CMP, CBC #### [address] Comprehensive Metabolic Pane migel 04-30-2024 Albumin [Mass/Vol] 4.6 g/dL Normal 3.5-5.7 [facility] Comment on above: Performed By: #### T SH3, LIPID, CMP, CBC #### [address] GFR/1.73 sq M.predicted MDRD (S/P/Bld) [Vol rate/Area] mL/min/{1.73_m2} Normal [facility] Comment on above: Performed By: #### T SH3, LIPID, CMP, CBC #### [address] Creatinine [Mass/volume] in Serum or PlasmaOrdered By: Devin Lam on 04-30-2024 Creatinine [Mass/Vol] 0.64 mg/dL Normal 0.60-1.20 [place] Comment on above: Performed By: #### T SH3, LIPID, CMP, CBC #### [address] Erythrocyte distribution wid th [Ratio] by Automated countOrdered By: Devin Lam on 04-30-2024 Erythrocyte distribution width (RBC) [Ratio] 14.8 % Normal 11.9-15.3 [facility] Comment on above: Performed By: #### T SH3, LIPID, CMP, CBC #### [address] Erythrocytes [#/volume] in B lood by Automated countOrdered By: Devin Lam on 04-30-2024 RBC (Bld) [#/Vol] 4.33 10*6/uL Normal 3.60-5.00 [facility] Comment on above: Performed By: #### T SH3, LIPID, CMP, CBC #### [address] Glucose [Mass/volume] in Ser um or PlasmaOrdered By: Devin Lam on 04-30-2024 Glucose [Mass/Vol] 65 mg/dL Low 70-100 [facility] Comment on above: ADA recommended refe rence rangeRandom Glucose Reference Range is dependent on time and content of last meal. Glucose of more than 200 mg/dL in a nonstressed, ambulatory subject supports the diagnosis of Diabetes Mellitus. Result Comment: [place] om Glucose Reference Range is dependent on time and content of last meal. Glucose of more than 200 mg/dL in a nonstressed, ambulatory subject supports the diagnosis of Diabetes Mellitus. ADA recommended reference range Performed By: #### T SH3, LIPID, CMP, CBC #### [facility] [address] [place] [address] Hematocrit [Volume Fraction] of Blood by Automated countOrdered By: Devin Lam on 04-30-2024 Hematocrit (Bld) [Volume fraction] 38.3 % Normal 34.0-46.4 [facility] Comment on above: Performed By: #### T SH3, LIPID, CMP, CBC #### [address] Hemoglobin [Mass/volume] in BloodOrdered By: Devin Lam on 04-30-2024 Hemoglobin (Bld) [Mass/Vol] 12.4 g/dL Normal 11.8-15.4 [facility] Comment on above: Performed By: #### T SH3, LIPID, CMP, CBC #### [facility] [address] [place] [address] Leukocytes [#/volume] correc gretel for nucleated erythrocytes in Blood by Automated counOrdered By: Devin Lam on 04-30-2024 WBC corrected for nucl RBC Auto (Bld) [#/Vol] 5.3 10*3/uL 3.8-11.6 [facility] Leukocytes [#/volume] in Blo od by Automated countOrdered By: Devin Lam on 04-30-2024 WBC (Bld) [#/Vol] 5.3 10*3/uL Normal 3.8-11.6 [facility] Comment on above: Performed By: #### T SH3, LIPID, CMP, CBC #### [address] Lipid Panelon 04-30-2024 LDL Cholesterol,Calculated 111 mg/dL High 0-100 [facility] Comment on above: Result Comment: LDL ATP III CLASSIFICATION LDL less than 100 mg/dL Optimal LDL 100-129 mg/dL Near or above optimal LDL 130-159 mg/dL Borderline high LDL 160-189 mg/dL High LDL greater than 189 mg/dL Very high Performed By: #### T SH3, LIPID, CMP, CBC #### [address] Triglyceride w/Reflex 57 mg/dL Normal 0-149 [facility] Comment on above: Result Comment: TRIG ATP III CLASSIFICATION TRIG less than 150 mg/dL Normal TRIG 150-199 mg/dL Borderline high TRIG 200-500 mg/dL High TRIG greater than 500 mg/dL Very high Standard traceable to the Center for Disease Conrtrol and Prevention (CDC) test method. Performed By: #### T SH3, LIPID, CMP, CBC #### [address] VLDL CHOLESTEROL 11 mg/dL Normal [facility] Comment on above: Performed By: #### T SH3, LIPID, CMP, CBC #### [address] Lymphocytes [#/volume] in Bl ood by Automated countOrdered By: Devin Lam on 04-30-2024 Lymphocytes (Bld) [#/Vol] 1.7 10*3/uL Normal 1.00-4.8 [facility] Comment on above: Performed By: #### T SH3, LIPID, CMP, CBC #### [place] [address] [place] Lymphocytes/100 leukocytes i n Blood by Automated countOrdered By: Devin Lam on 04-30-2024 Lymphocytes/100 WBC (Bld) 31.4 % Normal . [facility] Comment on above: Performed By: #### T SH3, LIPID, CMP, CBC #### [address] MCH [Entitic mass] by Automa gretel countOrdered By: Devin Lam on 04-30-2024 MCH (RBC) [Entitic mass] 28.7 pg Normal 24.7-34.3 [facility] Comment on above: Performed By: #### T SH3, LIPID, CMP, CBC #### [facility] [address] [place] [address] MCHC Auto (RBC) [Mass/Vol]Or dered By: Devin Lam on 04-30-2024 MCHC (RBC) [Mass/Vol] 32.4 g/dL 32.0-35.0 [place] MCV [Entitic volume] by Auto mated countOrdered By: Devin Lam on 04-30-2024 MCV (RBC) [Entitic vol] 88.5 fL Normal 80-100 [facility] Comment on above: Performed By: #### T SH3, LIPID, CMP, CBC #### [facility] [address] [place] [address] Neutrophils [#/volume] in Bl ood by Automated countOrdered By: Devin Lam on 04-30-2024 Neutrophils (Bld) [#/Vol] 3.1 10*3/uL Normal 1.8-7.7 [facility] Comment on above: Performed By: #### T SH3, LIPID, CMP, CBC #### [facility] [address] [place] [address] No Panel InformationOrdered By: Devin Lam on 04-30-2024 Estimated GFR (CKD-EPI) > 60.0 mL/Min [facility] Creatinine Clearance (Chem N/A [facility] Nucleated erythrocytes [Pres ence] in Blood by Automated countOrdered By: Devin Lam on 04-30-2024 Nucleated RBC Auto Ql (Bld) 0.0 /100{WBC} 0-0.5 [facility] Platelet mean volume [Entiti c volume] in Blood by Automated countOrdered By: Devin Lam on 04-30-2024 Platelet mean volume (Bld) [Entitic vol] 7.4 fL Normal 6.3-10.7 [facility] Comment on above: Performed By: #### T SH3, LIPID, CMP, CBC #### [facility] [address] Platelets [#/volume] in Bloo d by Automated countOrdered By: Devin Lam on 04-30-2024 Platelets (Bld) [#/Vol] 224 10*3/uL Normal 150-450 [facility] Comment on above: Performed By: #### T SH3, LIPID, CMP, CBC #### [facility] [address] Potassium [Moles/volume] in Serum or PlasmaOrdered By: Devin Lam on 04-30-2024 Potassium [Moles/Vol] 4.0 mmol/L Normal 3.5-5.1 [place] Comment on above: Performed By: #### T SH3, LIPID, CMP, CBC #### [address] Protein [Mass/volume] in Ser um or PlasmaOrdered By: Devin Lam on 04-30-2024 Protein [Mass/Vol] 7.3 g/dL Normal 6.4-8.9 [facility] Comment on above: Performed By: #### T SH3, LIPID, CMP, CBC #### [address] Serum globulin measurement b y calculation (mass/volume)Ordered By: Devin Lam on 04-30-2024 Globulin (S) [Mass/Vol] 2.7 g/dL Normal [facility] Comment on above: Performed By: #### T SH3, LIPID, CMP, CBC #### [address] Serum or plasma albumin/glob ulin mass ratioOrdered By: Devin Lam on 04-30-2024 Albumin/Globulin [Mass ratio] 1.7 {ratio} Normal [facility] Comment on above: Performed By: #### T SH3, LIPID, CMP, CBC #### [address] Serum or plasma anion gap de terminationOrdered By: Devin Lam on 04-30-2024 Anion gap [Moles/Vol] 12.2 mmol/L Normal 6.0-15.0 [facility] Comment on above: Performed By: #### T SH3, LIPID, CMP, CBC #### [facility] [address] Serum or plasma high density lipoprotein (HDL) cholesterol measurementOrdered By: Devin Lam on 04-30-2024 Cholesterol in HDL [Mass/Vol] 71 mg/dL Normal 23-92 [facility] Comment on above: HDL CHOL ATP-III CLA SSIFICATION Cardiovascular RiskHDL > or equal to 60 mg/dL LOWHDL < 40 mg/dL HIGH Result Comment: HDL CHOL ATP-III CLASSIFICATION Cardiovascular Risk HDL > or equal to 60 mg/dL LOW HDL < 40 mg/dL HIGH Performed By: #### T SH3, LIPID, CMP, CBC #### [facility] [address] Serum or plasma total choles terol/high density lipoprotein (HDL) cholesterol mass ratOrdered By: Devin Lam on 04-30-2024 Cholesterol.total/Elif sterol in HDL [Mass ratio] 2.7 {ratio} Normal <5.0 [facility] Comment on above: Performed By: #### T SH3, LIPID, CMP, CBC #### [facility] [address] [place] [address] Sodium [Moles/volume] in Ser um or PlasmaOrdered By: Devin Lam on 04-30-2024 Sodium [Moles/Vol] 140 mmol/L Normal 136-145 [facility] Comment on above: Performed By: #### T SH3, LIPID, CMP, CBC #### [facility] [address] Thyrotropin [Units/volume] i n Serum or PlasmaOrdered By: Devin Lam on 04-30-2024 TSH Qn 1.25 m[IU]/L Normal 0.45-5.33 [facility] Comment on above: Result Comment: PERF ORMED BY: [place] [address] PATHOLOGIST SERVER SYSTEMS ADMINISTRATOR FARHAD MORGAN M.D. Performed By: #### T SH3, LIPID, CMP, CBC #### [facility] [address] Triglyceride [Mass/volume] i n Serum or PlasmaOrdered By: Devin Lam on 04-30-2024 Triglyceride [Mass/Vol] 57 mg/dL 0-149 [facility] Comment on above: TRIG ATP III CLASSIF ICATIONTRIG less than 150 mg/dL NormalTRIG 150-199 mg/dL Borderline highTRIG 200-500 mg/dL High TRIG greater than 500 mg/dL Very highStandard traceable to the Center for Disease Conrtrol and Prevention (CDC) test method. Urea nitrogen [Mass/volume] in Serum or PlasmaOrdered By: Devin Lam on 04-30-2024 Urea nitrogen [Mass/Vol] 22 mg/dL Normal 7-25 [facility] Comment on above: Performed By: #### T SH3, LIPID, CMP, CBC #### [facility] [address] [place] [id number] [facility] Migel 12-03-2023 L Specimen: [id number] Received: 12/03/23 Status: YSABEL Hawkins Num: [id number] Spec Type: Surgical Subm Dr: Rey Angel Tissues: A Fallopian Tube - Sterilization (MAYE FT) Procedures: HE/6, Gross/Micro L2 Age/ Patient Sex Location Account Attending Physician Jessa Chatman 38/F LABE[facility] [id number] Rey Angel SPEC NUM: [id number] RECD: 12/03/23 STATUS: YSABEL HAWKINS NUM: [id number] SUSAN: 12/03/[address]: Rey Angel ENTERED: 12/03/[address] [facility] [address]: Herve,Lab SPEC TYPE: Surgical DEPT: LUPE MUNOZ ORDERED: HE/6, Gross/Micro L2 ORDERED: HE/6, Gross/Micro L2 Pathological Diagnosis Bilateral fallopian tubes, resection: No Significant Pathologic Abnormality. Clinical Information History of stillbirth, request for sterilization Gross Description Received in formalin labeled with the patient's name, date of and bilateral fallopian tubes are 2 segments of fimbriated fallopian tube with no laterality specified, 5 x 0.8 cm and 8 x 0.8 cm. The serosa is purple-gomes and glistening. Sectioning demonstrates a central lumens. The fimbria are markedly lush and otherwise unremarkable. [employer] Supervisor sections are submitted in 6 cassettes as follows: A1-A3 - [place] segment with fimbria entirely submitted A4-A6 - Longer segment with fimbria entirely submitted CPT Codes 62607 -------- -------- Specimen: [id number] Received: 12/03/23 Status: YSABEL Hawkins Num: [id number] Spec Type: Surgical Subm Dr: Rey Angel Tissues: A Fallopian Tube - Sterilization (MAYE FT) Procedures: HE/Luis, Verena/Jeanette L2 -------- Patient: Jessa Chatman [id number] (Continued) -------- Signed (signature on file) Konstantin Aguilar MD 12/05/23 1128 Normal [facility] Office Visiton 10-23-2023 Follow-up visit [id number] Jessa Chatman 1985 F Date Provider Department Center 10/23/2023 120-MAGALY, ARACELI [facility] No family history on file Level of Service:87485 DE OFFICE/OUTPATIENT ESTABLISHED MOD MDM 30-39 MIN Normal [facility] PROGRESSon 10-23-2023 Beta HCG ( test) [...] She voiced understanding of risks. Normal [facility] PREG QUANT HCGon 12-19-2022 HCG QUANT 5 mIU/mL Normal [facility] Comment on above: Performed By: #### P REGQNT #### [facility] [address] [place] [address] Dr. Fadi Meza HCG RANGE SEE BELOW Normal [facility] Comment on above: Result Comment: 5-50 0.2-1 WEEK 50-500 1-2 WEEKS 100-5,000 2-3 WEEKS 500-10,000 3-4 WEEKS 1,000-50,000 4-5 WEEKS 10,000-100,000 5-6 WEEKS 15,000-200,000 6-8 WEEKS 10,000-100,000 2-3 MONTHS Performed By: #### P REGQNT #### [facility] [address] [place] [address] Dr. Fadi Meza PREG QUANT HCGon 12-05-2022 HCG QUANT 43 mIU/mL Normal [facility] Comment on above: Performed By: #### P REGQNT #### [facility] [address] [place] [address] Dr. Fadi Meza HCG RANGE SEE BELOW Normal [facility] Comment on above: Result Comment: 5-50 0.2-1 WEEK 50-500 1-2 WEEKS 100-5,000 2-3 WEEKS 500-10,000 3-4 WEEKS 1,000-50,000 4-5 WEEKS 10,000-100,000 5-6 WEEKS 15,000-200,000 6-8 WEEKS 10,000-100,000 2-3 MONTHS Performed By: #### P REGQNT #### [facility] [address] [place] [address] Dr. Fadi Meza CBC AUTO DIFFon 11-19-2022 BASO # 0.0 103/ul Normal 0.0-0.1 [facility] Comment on above: Performed By: #### C VDTBH #### [facility] [address] [place] [address] Dr. Fadi Meza Basophils/100 WBC (Bld) 0.7 % Normal 0.2-2.0 [facility] Comment on above: Performed By: #### C VDTBH #### [facility] [address] [place] [address] Dr. Fadi Meza EO # 0.1 103/ul Normal 0.0-0.7 [facility] Comment on above: Performed By: #### C VDTBH #### [facility] [address] [place] [address] Dr. Fadi Meza Eosinophils/100 WBC (Bld) 2.1 % Normal 0.9-7.0 [facility] Comment on above: Performed By: #### C VDTBH #### [facility] [address] [place] [address] Dr. Fadi Meza Erythrocyte distribution width (RBC) [Ratio] 13.7 % Normal 11.0-15.0 [facility] Comment on above: Performed By: #### C VDTBH #### [facility] [address] [place] [address] Dr. Fadi Meza Hematocrit (Bld) [Volume fraction] 36.9 % Normal 36.0-48.0 [facility] Comment on above: Performed By: #### C VDTBH #### [facility] [address] [place] [address] Dr. Fadi Meza Hemoglobin (Bld) [Mass/Vol] 11.8 g/dL Critically low 12.0-16.0 [facility] Comment on above: Performed By: #### C VDTBH #### [facility] [address] [place] [address] Dr. Fadi Meza IG # 0.01 10e3/ul Normal 0.00-0.03 [facility] Comment on above: Performed By: #### C VDTBH #### [facility] [address] [place] [address] Dr. Fadi Meza IG % 0.2 % Normal 0.0-0.5 [facility] Comment on above: Performed By: #### C VDTBH #### [facility] [address] [place] [address] Dr. Fadi Meza LYMPH # 1.3 103/ul Normal 1.2-3.8 [facility] Comment on above: Performed By: #### C VDTBH #### [facility] [address] [place] [address] Dr. Fadi Meza Lymphocytes/100 WBC (Bld) 29.3 % Normal 20.5-60.0 [facility] Comment on above: Performed By: #### C VDTBH #### [facility] [address] [place] [address] Dr. Fadi Meza MANUAL DIFF REQ NO Normal [facility] Comment on above: Performed By: #### C VDTBH #### [facility] [address] [place] [address] Dr. Fadi Meza MCH (RBC) [Entitic mass] 28.4 pg Normal 26.7-34.0 [facility] Comment on above: Performed By: #### C VDTBH #### [facility] [address] [place] [address] Dr. Fadi Meza MCHC (RBC) [Mass/Vol] 32.0 g/dL Normal 29.9-35.2 [facility] Comment on above: Performed By: #### C VDTBH #### [facility] [address] [place] [address] Dr. Fadi Meza MCV (RBC) [Entitic vol] 88.9 fL Normal 81.0-99.0 [facility] Comment on above: Performed By: #### C VDTBH #### [facility] [address] [place] [address] Dr. Fadi Meza MONO # 0.5 103/ul Normal 0.3-0.8 [facility] Comment on above: Performed By: #### C VDTBH #### [facility] [address] [place] [address] Dr. Fadi Meza Monocytes/100 WBC (Bld) 10.6 % Normal 1.7-12.0 [facility] Comment on above: Performed By: #### C VDTBH #### [facility] [address] [place] [address] Dr. Fadi Meza NEUT # 2.5 103/ul Normal 1.4-6.5 [facility] Comment on above: Performed By: #### C VDTBH #### [facility] [address] [place] [address] Dr. Fadi Meza Neutrophils/100 WBC (Bld) 57.1 % Normal 43.0-75.0 [facility] Comment on above: Performed By: #### C VDTBH #### [facility] [address] [place] [address] Dr. Fadi Meza Platelet mean volume (Bld) [Entitic vol] 9.4 fL Critically low 9.5-13.5 [facility] Comment on above: Performed By: #### C VDTBH #### [facility] [address] [place] [address] Dr. Fadi Meza PLT 210 103/ul Normal 150-450 [facility] Comment on above: Performed By: #### C VDTBH #### [facility] [address] [place] [address] Dr. Fadi Meza RBC 4.15 106/ul Critically low 4.20-5.40 [facility] Comment on above: Performed By: #### C VDTBH #### [facility] [address] [address] [address] Fadi Meza WBC 4.3 103/ul Normal 4.0-11.0 [facility] Comment on above: Performed By: #### C VDTBH #### [facility] [address] [address] [address] Fadi Meza PREG QUANT HCGon 11-19-2022 HCG QUANT 17268 mIU/mL Normal [facility] Comment on above: Performed By: #### P REGQNT #### [facility] [address] [address] [address] Fadi Meza HCG RANGE SEE BELOW Normal [facility] Comment on above: Result Comment: 5-50 0.2-1 WEEK 50-500 1-2 WEEKS 100-5,000 2-3 WEEKS 500-10,000 3-4 WEEKS 1,000-50,000 4-5 WEEKS 10,000-100,000 5-6 WEEKS 15,000-200,000 6-8 WEEKS 10,000-100,000 2-3 MONTHS Performed By: #### P REGQNT #### [facility] [address] [place] [address] Dr. Fadi Meza US PREG <14 WKSon 11-19-2022 US PREG <14 WKS Obstetrical ultrasound, 1st trimester CLINICAL: Evaluate prior to scheduled DANDC. TECHNIQUE: Transabdominal and transvaginal obstetrical ultrasound was performed. FINDINGS: Comparison: Ultrasound 11/12/2022 There is a single intrauterine fetus. [place]-rump length is 1.81 cm, correlating with gestational age 8 weeks 3 days. No heart tones are detected. IMPRESSION: 1. Single intrauterine nonviable gestation. No heart tones detected, and no growth since previous ultrasound 11/12/2022. Electronically authenticated by: RUCHI FRANK Date: 2022-11-19 13:17 Normal [facility] PAP ACOG PANEL 2: 30 to 65on 11-16-2022 . . Normal [facility] Comment on above: Result Comment: Perf ormed at: WB Performed By: #### 4 [id number] #### [facility] [address] [place] [address] Dr. Fadi Meza Age Gdln ACOG Testing 30-65 [facility] Comment on above: Performed By: #### 4 [id number] #### [facility] [address] [place] [address] Dr. Fadi Meza DIAGNOSIS: Comment Normal [facility] Comment on above: Result Comment: NEGA TIVE FOR INTRAEPITHELIAL LESION OR MALIGNANCY. Performed at: WB Performed By: #### 4 [id number] #### [facility] [address] [place] [address] Dr. Fadi Meza HPV Aptima Negative Normal Negative [facility] Comment on above: Result Comment: This nucleic acid amplification test detects fourteen high-risk HPV types (16,18,31,33,35,39,45,51,52,56,58,59,66,68) without differentiation. Performed at: =G Performed By: #### 4 [id number] #### [facility] [address] [place] [address] Dr. Fadi Meza HPV Genotype Reflex Comment Normal [facility] Comment on above: Result Comment: Crit eria not met, HPV Genotype not performed. Performed at: WB Performed By: #### 4 [id number] #### [facility] [address] [place] [address] Dr. Fadi Meza Methodology: Comment Normal [facility] Comment on above: Result Comment: This liquid based ThinPrep(R) pap test was screened with the use of an image guided system. Performed at: WB Performed By: #### 4 [id number] #### [facility] [address] [place] [address] Dr. Fadi Meza Note: Comment Normal [facility] Comment on above: Result Comment: The Pap smear is a screening test designed to aid in the detection of premalignant and malignant conditions of the uterine cervix. It is not a diagnostic procedure and should not be used as the sole means of detecting cervical cancer. Both false-positive and false-negative reports do occur. . Performed at: WB Performed By: #### 4 [id number] #### [facility] [address] [place] [address] Dr. Fadi Meza Performed by: Comment Normal [facility] Comment on above: Result Comment: [place], Stunt Woman (ASCP) Performed at: WB Performed By: #### 4 [id number] #### [facility] [address] [place] [address] Dr. Fadi Meza Specimen adequacy: Comment Normal [facility] Comment on above: Result Comment: Sati sfactory for evaluation. Endocervical and/or squamous metaplastic cells (endocervical component) are present. Performed at: WB Performed By: #### 4 [id number] #### [facility] [address] [place] [address] Dr. Fadi Meza CHLAMYDIA/GONOCOCCUS TALAT ( AB/URINE/PAPon 11-15-2022 Chlamydia trachomatis, TALAT Negative Normal Negative [facility] Comment on above: Performed By: #### C T/NGNA #### [facility] [address] [place] [address] Dr. Fadi Meza Neisseria gonorrhoeae, TALAT Negative Normal Negative [facility] Comment on above: Performed By: #### C T/NGNA #### [facility] [address] [place] [address] Dr. Fadi Meza VAGINITIS/VAGINOSIS DNA PROB Kel 11-14-2022 Shannon species Negative Normal Negative [facility] Comment on above: Performed By: #### V AGINT #### [facility] [address] [place] [address] Dr. Fadi Meza Gardnerella vaginalis Negative Normal Negative [facility] Comment on above: Performed By: #### V AGINT #### [facility] [address] [place] [address] Dr. Fadi Meza Trichomonas vaginalis Negative Normal Negative [facility] Comment on above: Performed By: #### V AGINT #### [facility] [address] [place] [address] Dr. Fadi Meza Covid-19 PCR (CVDTBH)on SARS-CoV-2 (COVID-19) RNA TALAT+probe Ql (Unsp spec) Not detected Normal NOT DETECTED [facility] Comment on above: Result Comment: This test is not yet approved or cleared by the [place] FDA. When there are no FDA-approved or cleared tests available, and other criteria are met, FDA can make tests available under an emergency access mechanism called an Emergency Use Authorization (EUA). The EUA for this test is supported by the [place] of Health and Human Service's (HHS's) declaration [...] consistent with SARS-CoV-2. Performed By: #### [facility] #### [facility] [address] [place] [address] Dr. Fadi Meza US PREG TVon 11-12-2022 [...] MANUEL VEGA Date: 2022-11-12 16:44 Normal [facility] CULTURE URINEon 09-01-2022 CULTURE URINE Culture Observations : LIGHT GROWTH OF MIXED GENITAL SIRIA. NO POTENTIAL PATHOGENS SEEN. Normal [facility] Comment on above: Performed By: #### U RCX #### [facility] [address] [address] [address] Fadi Meza UA RANDOMon 09-01-2022 Bilirubin Ql (U) Negative Normal NEGATIVE [facility] Comment on above: Performed By: #### U A #### [facility] [address] [place] [address] Dr. Fadi Meza Clarity (U) CLEAR Normal CLEAR [facility] Comment on above: Performed By: #### U A #### [facility] [address] [place] [address] Dr. Fadi Meza Color (U) YELLOW Normal YELLOW [facility] Comment on above: Performed By: #### U A #### [facility] [address] [place] [address] Dr. Fadi Meza Glucose Ql (U) Negative Normal NEGATIVE [facility] Comment on above: Performed By: #### U A #### [facility] [address] [place] [address] Dr. Fadi Meza Hemoglobin Ql (U) Negative Normal NEGATIVE [facility] Comment on above: Performed By: #### U A #### [facility] [address] [place] [address] Dr. Fadi Meza Ketones Ql (U) Negative Normal NEGATIVE [facility] Comment on above: Performed By: #### U A #### [facility] [address] [place] [address] Dr. Fadi Meza LEUKOCYTES Negative Normal NEGATIVE [facility] Comment on above: Performed By: #### U A #### [facility] [address] [place] [address] Dr. Fadi Meza Nitrite Ql (U) Negative Normal NEGATIVE [facility] Comment on above: Performed By: #### U A #### [facility] [address] [place] [address] Dr. Fadi Meza pH (U) 6.0 [pH] Normal 5-9 [facility] Comment on above: Performed By: #### U A #### [facility] [address] [address] [address] Fadi Meza SPEC GRAVITY 1.025 Normal 1.005-<=1.02 5 [facility] Comment on above: Performed By: #### U A #### [facility] [address] [place] [address] Dr. Fadi Meza UA PROTEIN Negative Normal NEGATIVE/ TRACE [facility] Comment on above: Performed By: #### U A #### [facility] [address] [place] [address] Dr. Fadi Meza Urobilinogen Qn (U) 0.2 {Shan'U}/dL Normal 0.2 - 1. 0 [facility] Comment on above: Performed By: #### U A #### [facility] [address] [place] [address] Dr. Fadi Meza CULTURE URINEon 08-02-2022 CULTURE URINE Isolate 1 Escherichia coli >100,000 cfu/mL of ORGANISM 1 Escherichia coli ANTIBIOTIC M.I.C RX STATUS Ampicillin >=32 R F Ampicillin/Sulbactam >=32 R F Piperacillin/Tazobact am <=4 S F Cefazolin 8 S F Ceftazidime <=1 S F Ceftriaxone <=1 S F Ertapenem <=0.5 S F Imipenem <=0.25 S F Amikacin <=2 S F Gentamicin >=16 R F Tobramycin 8 I F Ciprofloxacin <=0.25 S F Levofloxacin <=0.12 S F Nitrofurantoin <=16 S F Trimethoprim/Sulfamet hoxazole >=320 R F Normal [facility] Comment on above: Performed By: #### C VDTB #### [facility] [address] [place] [address] Dr. Fadi Meza UTI ([facility])on 07-05-2022 UTI Report Diagnosis Info Invalid Interpretation Code [facility] Comment on above: Result Comment: Osmani riggs [...] on: 07/04/2022 23:05:19 Performed By: #### 2 [id number] ####[facility] [address] [place] [address] UTI ([facility])on 07-03-2022 UTI Method of Extraction Voided Normal [facility] Comment on above: Performed By: #### 2 [id number] ####[facility] [address] [place] [address] UTI Number of Jars 1 Invalid Interpretation Code [facility] Comment on above: Performed By: #### 2 [id number] ####[facility] [address] [address] UTI Specimen Urine Normal [facility] Comment on above: Performed By: #### 2 [id number] ####[facility] [address] [place] [address] UTI Type of Service Global Normal [facility] Comment on above: Performed By: #### 2 [id number] ####[facility] [address] [place] [address] Urology Office/Clinic Noteon 06-27-2022 Urology Office/Clinic Note [...] Low estrogen (more content not included)... Normal [facility] Comment on above: Result Comment: Elec tronically Signed By: Jalen Robledo\.jennifer\Date and Time Signed: 06/27/22 00:01 EDT Ambulatory Visit Summaryon 0 06-25-2022 Ambulatory Visit Summary JESSA CHATMAN :1985 Visit Date:06/25/2022 Ambulatory Visit Instructions Your Diagnosis Recurrent UTI Bilateral kidney stones Tests Performed Urnls Dip Stick Auto w/o Microscopy POC 93875 Your Care Team Attending Physician - Jalen Robledo Primary Care Physician - DEVIN LAM DO This Is Your Medications List acetaminophen-codeine (Tylenol with Codeine 300 mg-30 mg Tab) [...] Medications What How Much When Instructions Unchanged acetaminophen-codeine (Tylenol with Codeine 300 mg-30 mg Tab) [...] Urnls Dip Stick Auto w/o Microscopy POC 91428 (06/25/2022) Bilirubin Urine Dipstick - 1+ Small Blood Urine Dipstick - 3+ Large Glucose Urine Dipstick - Negative Ketones Urine Dipstick - Trace - 5 mg/dl Leukocytes Urine Dipstick - Trace Nitrite Urine Dipstick - Negative Protein Urine Dipstick - 2+ (100 mg/dl) Specific [place] Urine Dipstick - 1.025 Urine Appearance Urine [...] to exami (more content not included)... Normal [facility] Patient Educationon 06-25-20 Patient Education [...] this condition includes: ? Antibiotic medicine. ? Lewq-lwo-mmnmcwa medicines to treat discomfort. ? Drinking enough [...] these instructions at home: Medicines ? Take lqfh-akf-gwpwvsn and prescription medicines only as told by [...] This in (more content not included)... Normal [facility] Coding Summary.on 04-23-2022 Coding Summary. CD:[id number] G h0bWw+PGhlYWQ+MI5ECBB xX73ymEGlxY9EF8vVGK2E QJQRWCFVBX9ZEQ6azPM1C HwtG4WrwpXv EbwevGJbLL79VBv9MQU8t VacXZzojC5wbRTkM9m3Rw JqST56eY28QBcaDRYxQuK 3LjZpbjsgbWFy R9zyZyUfrSVdHko+PHRhY mxlIHdpZHRoPScxMDAlJy TfuQusIN6yXs8kIZNaLSG vbGxhcHNlOiBj v8lwALTbNWnlQU2ctUvdZ 3KquNZ8FTOjj5x2Qy08eE I+GVPhKLJ8vUbqHQuro69 6OtAuh6pxOTE8 vXDeHAuxDKT7A62qn3X0W EFxIKPvYKW6kPO8vY2ltA wnltzxD9OraSGyBnT6SIB 3bLWqnX1qeZtz mknujP7iAch+K64VDM5JA MDKML8HSzr1E8PiFyukbM I+LT89IAFnHI06mEBpfKC yd8ojdWy1BxMt GVNeDYR0nVyvJExxd9YaG WVmV91giEVdw7D1TFFlyL wlgPUcJjZtnRY4gM6mGVd wqdnuf3tkvtei Qcsvh4rpix33xY26J02oQ UqrPLNwSYT3JASfHPEgqE jvea9rlR0nEv0+ZDivi3y rm9dfbYi5JeYo GHFtvgBnnEzuAVU4m1XdO s74I8IwrTqol8ZoVsc4ir 51hXMin0L6rDE7GEixYQL ksI7xIXvcJfY7 YALrJiIftG43lDCpKXaxG n4vrRkepVbyUZ6cZXGoee kzEJGikP1tZLVdqNPvlFx aDE3fBGRotpuo s837MgYzGPH7PVOrjJRpL 9BvsC9qZwVsWAVeEVWiC8 TeiWVlQBmaE498YKvcDxM 7RDIbwiXsN2Fo OPLkmSmyTuK9w2T7Ht0Dn 6WsakbmLTX4WTesRBY9Bf W2SyCzVsC3M9VgXkm5KBZ yzEauPZ9fA7Gn PUXhegwbforprVB4KYQrE MRwdO56qXQoJWbsTu6nf9 V5d512RZWqNEKevV24Cm7 udDogMTBwdCBU fF9mbjbnw2pjkbofQjGnJ TStKJe7NCt0DBZjzSdqRl EoZII6RcC0MHP7yIRoeC4 keEqwfrvmaO0t Oyc+Z21suN4zYAO0DYO8h lrdJZYeddPvSM44IS21M5 RyPjwvdGFibGU+PGRpdiB ikRzuVX6jOyPs k3ayv6MtPEgpL3XrJKBhN PmzLpr3SHEiAOK7uRB4sM 6nXBHxGWzqy2Q7lIC7Z9R fmrFhed5zq6gh EQMmQWjvP83zkLCau8T1Q UCwdKR4BJFjaThuMiYdgL 93Oyc+LHEpaHnyc1SeOnz sq8cfy3bhnHn4 VlDbRFYqelVfbIjdPLO5t 3MdFc55O16xUEzyNSHrDL JoOTCeLXYlyJjlzo2gtG5 wIi8+PGNvbCB3 jPF5sV6vQUDfGsX1UGdcA 534LaPrhWAtSbaba3szx5 zipJn2GbJwNTNckwJstYq wZME0e1GaSj93 H32sFWseOYNuLLAqIMIkF BPcgYrjob7pbK5bPl6+PC 0pu4ydaa87kQ13uQT+PHR qJZI4mStsSChy XFDgzO5ySYvwJoR8XHMlO zOvxG42cVJuMNuvFa3heA ykuXnpVK8lJIOfgqeam84 8GzRge7nfRAJv rHGdJDpgZUX0I05yp8O6G EKzZBYgKDD5hES1dX9ybB lnbjogbGVmdDsgdmVydGl eJNliDAovD578 IHRvcDsnPlBhdGllbnQgT nIaTHl4L6HnRpp6IWHhlK guOA5clDVhHPjnRf3kzZt igStqGE4bDYTv pwotq278YiYzm5weHSMmg IXlKAlgMLA1E81bk3T8BV PxWGGoQCG5aOS6vY8yfDf nbjogbGVmdDsg mkRpvZwfQAotRWlgK019G HRvcDsnPkJpcnRoIERhdG K3UA00XW90cUCfc9Q8sJL 4K8SkCERqpfcp taxstHN6LSEqIQFkvO61Z o0tuZfhAf2mKPKeSXM1UD JtxEQqG3PyaT2eYuZxJJC yGWNdM1VjkVCj RVwtK680YJbfJpT9QMVip qBoN5JsDOPimVbqNvJ6e9 P6Ql4PQ4M9PN66AC74oZJ st5B7yKQ9D7Fn ENRqmekaetopsCL2JBDbM HXzdU13Jz2osAvtMb3nFI PhQAP8AJRboEHdP5UifA5 yOiAjMDAwMDAw I6BovWLhLWkaL986REixO qZ3GVLhedQnB9MrHWPruR yiGxC3e4H5Dd6HRHs9GI4 5SM86oQPpc9Y0 oAZ0D9EmEEPjpwhxownuv CQ5NGJyMLYkgB87Gk1wdR dmHk7uLNRqRXY5AJEzgPI rK1ExyK5dUxEz IDDeIKVqU0AisAZsPPnmB 112AVxcCkY0IJEcpiMwK6 DkJMTdxCeoZuC2q7Y0Kz0 NHPIaTF53SIG2 hAE6XW42BA01T1HgVwaxe GFibGU+PHRhYmxlIHdpZH RoPScxMDAlJyBzdHlsZT0 vYq5lULHhUJFi yTmqgORzZgAbk2gzKDFhR JfoRG2qpWttR9SrjDM3BJ Mkt8g6Qz90K00aX1DnqPD +OQRbyDY2kJI8 hN2dMqGrRjK9DVvjT598H sZmbAZiLfinn3rsd6jjvS u0FiV3DYThmpQftRcrEKJ 9l4IvAk37M51y IHdpZHRoPSIxNSUiIHZhb Tichg7wbL9zCe8+PGNvbC X5jRE0cL3yCsSoFqW1WHp uP892NtDohEJp Npegd6ghx9orzIg4EwWoP QTmnsHkmQfiBCM3c8WwWl 69Q4KurIjwj6GqYpd4jq6 0eBRis2T5mLM1 Y1DaXPJmdlcsdWNfhFnxZ F5eTKYkcuyoZESscL7aAC DvL4u8MkPdMuD2WVblE9V lpzB1WWQcxZTq TFqqKCM4F66jf7U5BPIuU FBjMYG5lVG0cJ6jbDjjiz ogbGVmdDsgdmVydGljYWw iTXogR718ZEEk aEqhBIAxyL7bQTWqlSQcn PgtQD9rEOIjzphnKs8QWP WNHZGURC0ZQLnmsUJ+PHR rFME2pPpzGUao FSUpsD1tHQNgR2q0IhExZ pN1EOnuM0JbSQDdoowmBi 47mJ9lTlZvKrE1XBacS1Y mhyY8HAMpeDJp UDjcAIF9S59sx0W4AGKcB JYeULN5pEP1tK2abTxfco ogbGVmdDsgdmVydGljYWw qSYrxR333USBk gMcpTkV4BeJ3EkH2GVQ0D 8LmWww3ROAilIbdUN8poN FiKCwkEs3goZspkZikWH7 wNTBpbjtwYWRk uH5pSDItnPBupJghBO7mT GYdivrjg659CbQpZMO7XY KgcMQuF7AmwO6pApJuAPB sTGBbF6DjfZJb FNrvI631ZXkvPlG6YCDlp fLiF6MdLTUlnAqzOzA2d8 Z0Yp5pNVPXLCAbjacdwYG +GIAmPQW7cXvd HEcnQWNnwW2aVULtL8h1L cPxNrI8IAsmQ8TvCIQwfo wiAe83jZ2nDzWzUyH7XTp xT7KuijC9UWLv nRNqHYzxMXE9W80nt6V6W KPeNZPmDFU1ySD5hP2ydV lnbjogbGVmdDsgdmVydGl kINkxLRdoA793 IHRvcDsnPkZlbWFsZTwvd GQ+IVSsRJR2vRauLBjwLS RqeI9eBDWmI7c4FyFfWxB 0CCjnA4QoLROq eugkEe00jZ4oDgHuVlR3W TdnH9ZrosN6LIWptVSyPY qsVDT0J24sb0O7LTKyZQN qREY8eIL4fM4l bGlnbjogbGVmdDsgdmVyd KifRQxzKMklW924YYNojH amPukyRiLBhc5yWT8tXdb vdGQ+MJ91oe61 E1NgXdvuYqb9WPAxQCJ9u SI7uX9aBVOkNQksl0X1aF T8B3RygoHjfo9iv2mkUQQ lMZidZ23gcVPr t5Q7KGYwnTC6JLYwlIkxP dOylD05Vmi+PGNvbGdyb3 RiWheve9lhc4vuyNk7IbY wJSIgdmFsaWdu LBA1h0RxJq04U09gWBohT HRoPSIzMCUiIHZhbGlnbj 8ldA9uNd6+JNVoiUN7aVJ 5oN3zGzIwDtM9 NNlwG366KfQqiTMaAvogj 3lee0hvfMh8EkSkZLUmpl CxtNruXHQ9c3ZgUc99V0J qwFyxb5MqSbg2 ll09cCZtd2L4pUW5W1DjA TXmgydhiRKpjDyiPZ9cYG KmpdftYCTsoY7zYJQjP1x 8CdTyGqZ5ARqb A1LdkiF3UCHbqIEuLMEtt PGRyK1labwaq8gxpjoiQf AnRILmIRf8ZNd4VIDnxIr oDlTlBLZ8EqH9 GMT1fANdtF5fkVnfxdyjg G9wOyc+WJw5n0rvfPTnBZ 5plKI3YI15OV31zEXid2S 6qKA6K3MiFZLd kiujxktqfCZ1DFNcQUOhw C17Sy5hmMvbJu2tAISzUX H9GHVcsBOoT5AflU5eFxI tVVBlDSHlV1Wl mHAaLXvqZ092TBroDpK4G EGzbjIdE5OhMOLrdPomIo C7k0U8Zt2BZZ72TA34MT6 8jJQfv2I3eAZ4 C4HqGBUoxnhlcqehlAB2B WUyYFFokO19Sh7jwPyyFl 2yAXZdNTN9HHTggDDaZ4D tlD5sErOxWODp LSWsG8AarROjKHjvQ299H WlaJnT0NJCrskYvY6ZhZA ZbiAdeDeL8v4O4Kc1NNl6 4OZ35FR85pAYt o5E3kCW3M3PlNMNqumtkw tkiiCM6UHIkCWPvjK68Dj 7srWrnYf6tGOMdDLE0BLA krKAvF7CnfZ0z WxJsJXJdOOYxE1WedICsT OjuC600WRsjMaH4XADcgd UhF5QdDMJtgOmgSrD0q2P 0Ra1QPJmiobv8 Y5MkTghrzDX+WX35GVRgW M92iDLwoNAtg2vmjCc3Ei FdXNZeBYN5cWluNCpos7H bRGKeI57ngNLg c2U6 (more content not included)... [facility] Reminderson 04-18-2022 Reminders - From: Lupis Turner To: EU - Clinical; Sent: 04/15/2022 15:02:18 EDT Show up: 04/18/2022 08:00:00 EDT Subject: Urine culture Reminder/Recall Urine culture done on 04/15/22 addressed by ANNITA Smalls [facility] C Urineon 04-17-2022 Bacteria identified Cx Nom (U) Microbiology PROCEDURE: Urine Culture [R1] SOURCE: U Random BODY SITE: COLLECTED DATE/TIME: 04/15/2022 15:01 EDT RECEIVED DATE/TIME: 04/15/2022 17:29 EDT START DATE/TIME: 04/15/2022 17:29 EDT FREE TEXT SOURCE: POLLO LIN, MEGHANN ABAD PA-C, MEGHANN Samayoa FINAL REPORTS Final Report [] Verified Date/Time: 04/17/2022 10:31 EDT 20,000 cfu/ml Escherichia coli 2,000 cfu/ml Mixed skin contaminants SUSCEPTIBILITY RESULTS LEGEND: S=Susceptible, N/R=Not Reported, Blank=Data not available, or drug not advisable or tested, I=Intermediate, ESBL=Extended spectrum beta-lactamase, R=Resistant, TFG=Thymidine-depende nt strain, WESTON=Beta-lactamase positive, NISH=mcg/m;(mg/L), S*=Predicted susceptible interp, [...] Locations R1: This test was performed at: [facility], [address] [place] [address], [address]- , [place], [facility] Comment on above: Performed By: #### 2 [id number] ####[facility] [address] [place] [address] Coding Summary.on 03-13-2022 Coding Summary. CD:[id number] G h0bWw+PGhlYWQ+WK3RULV dO40qxMGddB8OU2eGCR3B KVHXGMOYZH4SHS0ihEM4M QibK1IsyiZw ScpgsUSeVV10CUx2BJM2m WxdFPfdvE9fxYReA9a2Ln UeQF45pM06OHhwXEJbJzB 3LjZpbjsgbWFy N4lkMeYfiKGxWee+PHRhY mxlIHdpZHRoPScxMDAlJy TfuJeiXQ0vZz8xOAXdGGF vbGxhcHNlOiBj r8wlOTSpBZkoSK9hwLmdE 9UmjPR8OQUnv3n1Ul33xT I+KOXaMBQ6dVcoNMoko40 2QlCbz0wcAID7 rKHtAPwcJWB8J69ae0U4C QLbIPCjJKW1xVU0wT4qcH bceakfJ1QzdAKgUfJ9APE 0kTKkxV5iaAph vmqinM6fXww+S64ICO9XE NFVNU2NUsz1S0FvQjrasW I+TC17WUSrGL32oIJekDR cl6uxpYf9QqOl XAWoVSC1gAtwNLrem8PjE BEoY70ngWWoe9P6QFZlzQ oagGRqBkNsmTC8hN8lCWj eilftz7qxhaut Quuod7exgb86xX63A13cV AdsSIPmXSS6NMVdIOUrrF plzv9woH6uIq5+IPzhu8b pg7wfxOe9KzCg FXHwypYsaMmfNMF7b0PdC y13N1WkxYdic4IfXhf7hr 84wGIab3V4mOK0QTliRZP uhD6wZUnuCyU9 GXXrXzSuoL82hQCzMJbeP t1jvInhuLtmHR3qKBVwna roKTQowH3rPIHklXTuaAc vWH9oMBPffhhe c957OtKsTPG5DZAbaPTfR 3BbhQ9kOaSbKZDhUFPtX1 RctAYdIKdrN954BYqhPmN 4FUKlroGjK2Nx JXZvzZjqHiP2i4S3Cs3Qm 3OwcsdiARE7SOjtLBL4Vy X8PnXbHaV8W2TcRkl5ZIW lqGbdAM3sQ2Ez DFTzqxrpfkveiZK6NWLkH NRmqR45vTGjSZmeUh2ao4 A9z243RAZpRXFkrX88Pq1 udDogMTBwdCBU wY7fmzesw7fmrciqSkYxC VBdVMw7SFh0ICLsgTuoRk PaWMW5BrP2NNQ9cBCurL9 xnXkfbgdfyL3x Oyc+L47obZ2sQNE5HCL4z jajYSHohyAiMN86IU91T2 RyPjwvdGFibGU+PGRpdiB whHnqQQ4yAxMv p4jfw2MaFTikK1TmGQQmN TiiAyx7FADnZLT0jOJ2jM 4uKZNgVDakc9F6zWI9P7D gkuQgvd9ia2hh GEPvJMlnO45gmSEvk0W1P ASxkMY4PJZpnOfdNnRzqT 93Oyc+JWZidBlig2RaYoz rl5tzx5rwvIr4 QfZqNRXkapYscUpbJMJ6g 7UjYh54I82vJZlcWNMtUX GvYNKfSGMmmUiang5qnO1 wIi8+PGNvbCB3 yIX1xA0eJIWnYgU0OCpyX 552CeEmdLQwXibqk0akb9 harDa8DuJmSEFlgzCudWc iXEQ8b2MiFs13 G97lINjpIOJbZIQsXYTnX AUpvJlcxw0jxW6bLs9+PC 6gj1fqgl56mX38pID+PHR rQYN7nSpoSLzk IAXhxQ9pNGxrYwJ6ZFWcG vSjtL66yDBmJOwjOl9cyV mqxMgpCV6pHHPjqtmly62 8IoEer0hhSRRg mQVaSVgxGCS4H42ws7K2W MMyOBWdFAX7rME8xN6iiX lnbjogbGVmdDsgdmVydGl uLZhzUKzmR431 IHRvcDsnPlBhdGllbnQgT vNeJGh1I2YrVsw8MHGyxG tuSC6ksXTmJAnoUn0xyZg syVudFT2bNQBz xatnp263DkOem2rrVHStd LFeACozHHO6G57hx2O3FI JmSDGtDMB5sNC8qS7zcIo nbjogbGVmdDsg ilZewUktFKggPCyeC462W HRvcDsnPkJpcnRoIERhdG G0ZP02GT37kMZox9H5qNQ 6M5AmETZtuwav remazTA6TVBkKXVsuT21W q0dvBcsMa1mVPZtNXQ6ZV VvjOPpH8QtaX5sLxHyWWM hLGPkX5MjwVVp DJgxT707ENiuUmC9DIOmm aRvV3EaNZMbzGhmAoE9w7 U3Cg2UM8U6VJ23UD30rOX iy0I5zTC1G4Uy KQHqqgkfdtqndCB6WDCmP NAcoC35Ie3qmHfcGh4bQQ JdIDG3YERsiGKdV0DirE5 yOiAjMDAwMDAw V4RzqCKzNPtpR938XJqaR nP1TUFhpiAeB7KyFYUgdD vtRnD6d9R9Pc7LFAy9QV3 2CL67xGKtw9B5 mEY8K9CoXLPikankfgpxi HE4RJGaEPUixQ84Ue3hfZ aoYv7cIDIvMGR2LQSaiHE zD3HmwT7lDdXz XEWgMOZpU7SiqSOeFBwwT 063OBytQaH0YBKwtmHbC5 DoGRTlzTmpCeA8a2V2Uv6 VJTFuZZ44RST3 qUF6XA55HQ35H6TyIxlnz GFibGU+PHRhYmxlIHdpZH RoPScxMDAlJyBzdHlsZT0 pBw0fFZWfUNCx tAoxcXLmAyNdd9qpVUKbR ToeVG2riZsyB5OziMF5OW Tcn7h8Dh87D40sF3AlpXG +IFSsdJD8rNZ4 pJ0bFqYwUmM1DJtiK475C aRrbXGySlkef1god0xnbT o1PdJ4NBTjqvQxvSdwHQI 2j8GgKl08U74n IHdpZHRoPSIxNSUiIHZhb Skgiq1fnE5oFp7+PGNvbC J9hJG2tM2lAvVlOpP5FKr sY348NyTzfHTn Lqnyg5mob8ydtRu9OuShF FCfapIffKmaEUJ1e3UwXe 96B2RomGmty1WrBxn1mc9 3dLFtf1C0gBL1 O1ZgBMHtlfmnkNWicBluX H6dSXXfcmztBDQboG6aGU QkW0c1QjHdLpQ3AUpkR1F kmyF0EQPzfDZr HDifKUN6I17uy8J5EPGlU ZIqKHB5bPM8bZ4mxPlvvx ogbGVmdDsgdmVydGljYWw nPXxoE716IJRa rDowEOBzoS8cKBPkoZNjt DqmWB7yFHZogozgOo8SML NOETRNFK9CAQnuyNT+PHR aGXI6aDmjSAls KGEimY8eHKImN2b4TbGiP gX5JBvoO4WeMBPwjidpRi 94yD9uFeYfZlB3NGsqS7W evdT8JPUfjPMu IPkoYQJ1J66yw6Y4UFVtY CVqNRJ7iCO6rO8exMpzbr ogbGVmdDsgdmVydGljYWw kPEryC061ASRr pAfvMnT7KdO6SfX8XLZ8H 6FtLsb5UULokLunKI2ilN XoMHrfJd6syLgtyXkhNF6 wNTBpbjtwYWRk aT3lESQunUXohEioAM4nO DTbhnofd730WqNzRAQ2KI YlkVJsI1EnxJ9rSgMjBSI bITVwE4PphAJa ZGzkR848ZNdnJqU3HVEbw yTbY1GmYJRqnQcmRjE8y9 R6Rz8nUIFQSAIudannzPP +IRYvHID0hFtd DDwbYHLorL9jJHZqJ9s8M iTxTmU0FUenQ5KiMULubd ilIp21lO5vUuRwUsL3BUz tA1GcixE6CDFk lUQuFJezWNM8E76gh2U3Z IIeGTIsRTV2uMH3iM1swZ lnbjogbGVmdDsgdmVydGl aAYeoPJxdT385 IHRvcDsnPkZlbWFsZTwvd GQ+DQPvMDC4qPiqRPyjWG YamI4zFGAlD8o8GtGjRmP 4MDewV8DmEKOj xyeaKz85qM0zSyLsSsM8I SdcI0PhrjE5DOOgvDZwNQ jkWSS8L84ww7V7QHGrFHV bPJX4jPG6zI2o bGlnbjogbGVmdDsgdmVyd OtqVCvdHFfeX014ZTKgrF gfTnglEcCQnf3mMK8kAar vdGQ+AJ24xh49 M2HwOciwBns9UKPrVOO0j PW1fE1pUNWtSLncr1H4lM V1T5TordVohy7tt9hjLQA dQVvcQ89thYBf u9H4FUWfhDT5DPZmwWakP uAspV10Egy+PGNvbGdyb3 OnHvpch8nfs8lclHo2UsB wJSIgdmFsaWdu GUV0r6RbBj26C18hRKooK HRoPSIzMCUiIHZhbGlnbj 6ieD2tIl6+BAHnzZO5iCB 7hG2jNnDiRuO2 JAodY106CuXabIMfQmfsi 0lqs5kpjVw2ZtAfBLCrdo SpjUjcPPV7w6DaDo55G0K qlFfgk4NpIxp2 od84eAVmj5M7tNA2J8IuS DMdvfdhrYHrsCkcWA6tGJ QlhzfzOSCusN2pYQToY6p 1VtHlHrL4VAlu O8HtkxK7XAVsrEClALQfx SMKuT5fyjrxi5pegagiZp EgCVQjMZu9ITm8ITLxmKu aXmFbZAJ3XoM1 IJO8jABncJ9rbGsqtxoin G9wOyc+JRs1z1hpiPFuEP 5ngFF6GX09WR86pTOzj9O 9cHB0Q7ZiAYYf xuosmfvndOZ1WRHrWKTdt X45Rp7fhKuqAb5vIIEaCY U2OFJspBAdF6MboF3lIaW yYNPrOKXzT5Qg sVZeODhfG485SOquAjZ4X UWjptRmI3UiFCKrkXyoWr J5g6X0Jk3WLK26WR59CY8 3cIExf9R1eYA3 S6SoGHDfexkipmdrgRN7U DWuINWlgV55Uz3mpCsxTq 6uPUArZDQ0MOFusOExY1B efA3pAnTgIDGw XUBnI5HwzICxIHpiI231O DzqXmG1FOYdvnUyQ4HzGT RcmSvjMtC0t5W8Md8IIj2 0ML40YF58sPFk s9I0jPM4A2CfICLmsgcmu xfkdTS6QLNkKTHgrM70Rx 9oyVgjTs8cXNUaDEJ8VNH czJPaH0MbsA2n HiArYJWdOOXnP4HoeLQeB DjiR980RAwsOvI8ZDJrxh ShC0KzYRCkbOylZnY1j1F 7Oh6WFIxppgt1 G9ZtJqqwsPH+VY77IGOfK Y69dDDqmJUkr1rqkQh7Gr FzQBKaQWT4aDrvLDvwt0R jLNBzK76avQNh c2U6 (more content not included)... Normal [facility] C Urineon 03-08-2022 Bacteria identified Cx Nom [...] or tested, I=Intermediate, ESBL=Extended spectrum beta-lactamase, R=Resistant, TFG=Thymidine-depende nt strain, WESTON=Beta-lactamase positive, NISH=mcg/m;(mg/L), S*=Predicted susceptible interp, [...] Locations R1: This test was performed at: [facility], [address] [place] [address], [address] , , [facility] Comment on above: Performed By: #### 2 [id number] ####[facility] [address] [place] [address] Reminderson 03-06-2022 Reminders - From: Lupis Turner To: [facility] - Clinical; Sent: 03/06/2022 14:52:59 EDT Show up: 03/09/2022 14:52:00 EDT Subject: UA micro, CX Reminder/Recall UA micro/culture done on 03/06/22 [facility] URINALYSISOrdered By: Nazario doyle on 03-06-2022 Bacteria LM Ql (Urine sed) 2+ /HPF Invalid Interpretation Code Trace/HPF FT UA Auto SS Bilirubin Ql (U) Negative [...] PM) Normal Negative [facility] UA Auto SS Vern[place].plasma/[place]. RBC (Bld) [Mass ratio] 0-3 /HPF Normal 0-3/HPF [facility] UA A uto SS Mucus Ql (Urine sed) Trace (03/06/22 2:52 PM) Normal [facility] UA Auto SS Nitrite Ql (U) Negative (03/06/22 2:52 PM) Normal Negative [facility] UA Auto SS pH (U) 7.5 *NA* (03/06/22 2:52 PM) Invalid Interpretation Code 5.0 - 9.0 [facility] UA Auto SS Protein (U) [Mass/Vol] Negative (03/06/22 2:52 PM) Normal Negative [facility] UA Auto SS Specific gravity (U) [Rel density] 1.015 *NA* (03/06/22 2:52 PM) Invalid Interpretation Code 1.005 - 1.030 [facility] UA Auto SS UA Spec Desc Random Urine (03/06/22 2:52 PM) Normal [facility] UA Auto SS Urobilinogen Qn (U) 0.9498366 {Shan'U}/dL Normal 0.0 - 1.0 EU/dL [facility] UA Auto SS WBC Auto Ql (U) Negative (03/06/22 2:52 PM) Normal Negative [facility] UA Auto SS WBC LM.HPF (Urine sed) [#/Area] 6-15 /HPF Invalid Interpretation Code 0-5/HPF [facility] UA Auto SS Urinalysison 03-06-2022 Bacteria LM Ql (Urine sed) 2+ /HPF Abnormal Trace [facility] Comment on above: Performed By: #### 1 [id number] ####[facility] [address] [place] [address] Bilirubin Ql (U) Negative Normal Negative [facility] Comment on above: Performed By: #### 1 [id number] ####[facility] [address] [facility] [place] [address] Clarity (U) SL CLOUDY Abnormal Clear [facility] Comment on above: Performed By: #### 1 [id number] ####[facility] [address] [facility] [place] [address] Color (U) YELLOW Normal Yellow [facility] Comment on above: Performed By: #### 1 [id number] ####[facility] [address] [facility] [place] [address] Epithelial cells.squamous LM.HPF (Urine sed) [#/Area] 3-4 Normal 0-2 [facility] Comment on above: Performed By: #### 1 [id number] ####[facility] [address] [facility] [place] [address] Glucose Test strip (U) [Mass/Vol] Negative Normal Negative [facility] Comment on above: Performed By: #### 1 [id number] ####[facility] [address] [facility] [place] [address] Hemoglobin Ql (U) Negative Normal Negative [facility] Comment on above: Performed By: #### 1 [id number] ####[facility] [address] [facility] [place] [address] Ketones (U) [Mass/Vol] Negative Normal Negative [facility] Comment on above: Performed By: #### 1 [id number] ####[facility] [address] [place] [address] [place].plasma/[place]. RBC (Bld) [Mass ratio] 0-3 Normal 0-3 [facility] Comment on above: Performed By: #### 1 [id number] ####[facility] [address] [place] [address] Mucus Ql (Urine sed) TRACE Normal [facility] Comment on above: Performed By: #### 1 [id number] ####[facility] [address] [place] [address] Nitrite Ql (U) Negative Normal Negative [facility] Comment on above: Performed By: #### 1 [id number] ####[facility] [address] [place] [address] pH (U) 7.5 [pH] Invalid Interpretation Code 5.0-9.0 [facility] Comment on above: Performed By: #### 1 [id number] ####[address] [address] Protein (U) [Mass/Vol] Negative Normal Negative [facility] Comment on above: Performed By: #### 1 [id number] ####[address] [address] Specific gravity (U) [Rel density] 1.015 Invalid Interpretation Code 1.005-1.030 [facility] Comment on above: Performed By: #### 1 [id number] ####[facility] [address] [place] [address] Type of Urine collection method Random Urine Normal [facility] Comment on above: Performed By: #### 1 [id number] ####[facility] [address] [place] [address] Urobilinogen Qn (U) 0.2 {Shan'U}/dL Normal 0.0-1.0 [facility] Comment on above: Performed By: #### 1 [id number] ####[facility] [address] [place] [address] WBC Auto Ql (U) Negative Normal Negative [facility] Comment on above: Performed By: #### 1 [id number] ####[facility] [address] [place] [address] WBC LM.HPF (Urine sed) [#/Area] 6-15 Abnormal 0-5 [facility] Comment on above: Performed By: #### 1 [id number] ####[facility] [address] [place] [address] Consent for Procedure/Surger yon 02-26-2022 Consent for Procedure/Surgery [id number]# 1.00CD:127 Normal [facility] RAD - MISCon 02-26-2022 RAD - MISC [id number]# 1.00CD:127 Normal [facility] RAD - Ultrasound Reporton RAD - Ultrasound Report [id number]#1 .00CD:127 Normal [facility] Ambulatory Visit Summaryon 0 02-25-2022 Ambulatory Visit Summary JESSA CHATMAN :1985 Visit Date:02/25/2022 Ambulatory Visit Instructions Your Diagnosis Recurrent UTI Bilateral kidney stones Your Care Team Attending Physician - Kwadwo SAEZ MD Primary Care Physician - DEVIN LAM DO [...] Kwadwo SAEZ MD Where: [facility] Patient Educationon 02-26-20 Patient Education [...] glands make too much parathyroid hormone (primary hyperparathyroidism). ? A buildup of a type of [...] these instructions at home: Medicines ? Take lunj-gtp-xzkjham and prescription medicines only as told by [...] (NKF): www.kidney.org ? [facility] (UCF): www.urologyhealth.org Contact a doctor if: ? You have [...] 04/13/2009 Document Revised: 03/13/2020 Document Reviewed: 03/13/2020 [employer] Patient Education ? 2019 [place]. Serina [facility] Urology Office/Clinic Noteon 02-25-2022 Urology [...] urine The Urethra was dilated to: 18-30_ [place] with sounds. urethra bled. dry. Removal: Cystoscope [...] left nephrolithiasis. Follow-up With When Contact Information SAHYNA JENNINGS, COLLINS Elias In 4 months 06/27/2022 EDT [facility] [address], [place] [address]- Additional Instructions: Patient Education Kidney Stones, Lujl-yr-Jluv Devonte Nickerson personally scribed for Dr. Saez on 02/25/2022 15:18:41. . Documentation recorded by the Devonte guzman, accurately reflects the services(s) I performed and [...] Grandparent. Diagnostic Results Tests Reviewed: Reviewed UA. Normal [facility] Comment on above: Result Comment: Elec tronically Signed By: Kwadwo SAEZ MD\.br\Date and Time Signed: 02/25/22 15:21 EDT\.br\Electronically Co-Signed By: Devonte Echeverria\.br\Date and Time Co-Signed: 02/25/22 15:19 EDT Pre-Certification Formon Pre-Certification Form [id number]# 1.00CD:127 [facility] Reminderson 02-10-2022 Reminders - From: Kristyn Echeverria MA To: EU - Clinical; Sent: 02/04/2022 16:03:36 EDT Show up: 02/08/2022 16:03:00 EDT Subject: Urine Culture Reminder/Recall Urine culture Pt is currently . ANNITA addressed [facility] C Urineon 02-07-2022 Bacteria identified Cx Nom (U) Microbiology PROCEDURE: Urine Culture [R1] SOURCE: U Random BODY SITE: COLLECTED DATE/TIME: 02/04/2022 16:00 EDT RECEIVED DATE/TIME: 02/05/2022 13:57 EDT START DATE/TIME: 02/05/2022 13:57 EDT FREE TEXT SOURCE: MEGHANN ABAD PA-C, PA-C, JENNIFER E FINAL REPORTS Final Report [] Verified Date/Time: 02/07/2022 09:59 EDT >100,000 cfu/ml Escherichia coli SUSCEPTIBILITY RESULTS LEGEND: S=Susceptible, N/R=Not Reported, Blank=Data not available, or drug not advisable or tested, I=Intermediate, ESBL=Extended spectrum beta-lactamase, R=Resistant, TFG=Thymidine-depende nt strain, WESTON=Beta-lactamase positive, NISH=mcg/m;(mg/L), S*=Predicted susceptible interp, [...] Locations R1: This test was performed at: [facility], [address] [place] [address], [address] , , [facility] Comment on above: Performed By: #### 2 [id number] #### [facility] [address] [place] [address] Performed By: #### 2 [id number] ####[facility] [address] [place] [address] Coding Summary.on 02-07-2022 Coding Summary. [id number] G h0bWw+PGhlYWQ+LE6ANMD aZ65giWTfdN1HY6zUOA2Z ASKPIJPUGB0SHS3ieDA7R ZsuH6ElewUg TswerVZoVP67OTv2CIP5i BozBXaxvX4hsMViJ4j3Zh AdUW97lQ51MJedVITvUtH 3LjZpbjsgbWFy S9gvEpXzcJCyIur+PHRhY mxlIHdpZHRoPScxMDAlJy FryInzGT4iSl2vOKBhTTO vbGxhcHNlOiBj w7ovOORfMOuxVX5pcPzaB 0OapVR2IIPwu6w1Yh30dN I+FKObSCO9cOuiPKgvj41 3XrKvm4uhISA2 mTMrXBogVDY6W52iu1O0S QEoJZVqCQR6jPI9pT2jzE dlenvuL7GukFHeLoC1CAX 5hLHhqP1yvCbj gkcskW4kEae+C72ECK4EL HUOSA3FXkx9G0PsQfzlfN I+BQ13MSUyHH03zPYmgRQ ue1sraHg7WzUg SXEaXHI9nWrxWEzcc3DlM UCoP03htXYcn6G7YPKuwY rghHDiIwOfcYP9uB3rXBy kpxjhd1foesgf Qzndc8egzz75tV19T35qM RdsPAFmBJS1KCHiIOIfmK hetc8bzC6ePt2+PGqqw9q jc5kfqGw1WwZl KEQtevNdgZlwVIB6u3WaG t18N5YtrEyuj8WrVjp0pb 70rXIbw5T7cGL0TTltIHW shM0xXIfoJzL5 NJYaSxPzoS29tJKeQOugB a6beRzzvCgwHH5xTQDrey alHLNynQ8bMJLebPQipLt xYF9yLDXtaouv e523BrVhZRK6JCWuwUDyE 2AjkA3aNcBtJGFeZMUwP8 AqpDInRGasK645WPemZnD 9JUBespVjH1Tz PRUlsJieQoO2o7W3Mr0Yr 0MefxyrFNH9YNzaKLWyHa TfNwDzMjT3X3BvEui2LBX jaRocIL8uL6Lw YHEyuqakynjbgKA7NJUrW WMnpU76dHNvYYbtWo7hd6 P4c564MPEgBKEtyJ76Ew0 udDogMTBwdCBU bH0mrfiix4klepjeQrByE UPzEHv5QTh3SLUyeMqkUi TjPEQ2ChP8QED2eATzbC6 wpLkpmhhkfJ2a Oyc+A05nbC9hZUH9SSG0i utbAGMgvoEvBH99EC39V6 RyPjwvdGFibGU+PGRpdiB zrKbyBP1hUpHl j1glq9OwRLjwT1WyEAEvC RveItl6ZLUvNRY6uRQ8wK 9tPKOaJXwzr4G1yXO9G8T sdkPinw7rc0ny KEBpKKsnK86uvTFrt5D7H MPduBJ1YBRxiCafTeGdqU 93Oyc+SBKlbTloz8NeZvk hm2pkh2oicIk8 RbRkYQLyiyGcrBelUZM1w 2WkAx97G63xWOdiTLCeYJ SzSFRwVZCpgDfspf7evQ2 wIi8+PGNvbCB3 oKO2xY2oVAYmVfP5KSabA 059HiAieEHtFozog5mtv0 xfjCd9QwJxTFCptfLtyLr iCDI1d2JhSa48 H30hZOqcBSMyIRCeTHVhF DZkbAwqjw6kfY1fJl6+PC 7bo8cwha57bE15vMU+PHR aDMC2gKijEAxu FYJxjI7fFYahBvO3MMIgS xHabH91mKXbCKbjGj3zaO kjjOmcFV8pPNOyfknti42 3OhVop0wgDKDl jCZhQLjlICL1O47jr8Q0Q AGlYODqDQZ3jOQ6hN0gnW lnbjogbGVmdDsgdmVydGl rRGrlUBjwM392 IHRvcDsnPlBhdGllbnQgT uJrXMj6V1QhUgh1JFPhzN fcJG4gsBDaVCgmPx2jrTr mkPyzDB9vPKJd efnxl327ChXgk7jeVXUox BAbJFbhKKV7W18ue9E0YI CjYVXsCFR3rPF1iV3tiQa nbjogbGVmdDsg yoComImbBPmgXHutL412X HRvcDsnPkJpcnRoIERhdG X6JE95KP39nUVwu5M8tZD 8I8RdUUOoydwk bujjzXK9VSArDDWhwS41H u5vfHlpIj4tEDVeHWR6XI PqcGSqR4BaqQ0gZlIxWWU cETFsN4FxeDMf JZbaI419JTlqUmE0JDRai kLiO0IdFUQvtDhiOuW0v7 X9Ak7GO4G2GL68MA93dRK ga2G0dQF1Y6Lw LLMlcwetdhcmyOG2OSVhF TUqdB02Jv5gxSnrYa2sBR CjOHR6GXSmyIUnE3UcbC8 yOiAjMDAwMDAw F0SedCBcLLduJ622QRkmW hI2SBIgwyNeP0LnKSAbpO fpDlB5r3S2Xt4TLAf8KD7 7QH69uQGac3Q2 rCZ2K0HzXXJdjrdhhiqam DX7PGVqLQBliF79At7rcX xjRa8kAWJjGEA8YKVufLV rR0MloW7fBmMj UWJfAWTuF7JqpLLcOYckJ 969OLmsCaV9WKKcwbGtL0 NxGOAtzYcmXgH9i9T1Lk1 YIISpIJ55KCT8 jXZ4SD39VZ66P9IpApyke GFibGU+PHRhYmxlIHdpZH RoPScxMDAlJyBzdHlsZT0 dNb0gWMFuROXh sRkrgAUuQgMdy5yzOIZfU VwdYP0utAxuG5FkaJY8RM Jfh4z4Aw90F85tF7RxsML +PJVzjEY6dWU7 qC1eEcOeMxC8YAopH171D dZfvNGnIqxas2vfa6owmL b9AoW4CRVquyNfiVxwAZI 9d4ZgLi52R22w IHdpZHRoPSIxNSUiIHZhb Pcwua9nrV8dQq5+PGNvbC F0oYH1cK0ySbZbArK2VUm dY232TeSckUBh Ezktg5uvg0vvrBf4QaWxQ WGisyEkzWvjNBF2t5TbUd 92X6JquUggd9SaYiq4iq6 4bYZol0A4gUR9 D0TxLIBflcvsnVBinGrmB G4kBTTlepulXPIwfW6aRK OjP0l4YfTlDvR7NXlgO0F cnmP0TFTyiFOc GPdaPSN1G18fm7F3ZKJpC XWdPAE7gZD8yP9omGuxhg ogbGVmdDsgdmVydGljYWw dNNggZ370HPJe oLlgVWNgfS9wYLSykVNlr IqqAR6dKLZmnpxnOn4VIC DFJJAQTI0JMUbyvRP+PHR aEAQ9yOisHKqc YPBheQ8hRJEqT4a6SwWvW bB5PZxhQ0BdZTGpwhnqBb 15cC3hUkNsWfZ6UOxlL9T qzkB6XDEonVIp PVxsBRM7U39ho2F0EJWgX YOyHIP9tGR2vI8buDqgyr ogbGVmdDsgdmVydGljYWw iBBacQ884VZKr tBhlZvI1KvU9MzG5DRZ2F 0RgXwh7RJGpxKwuPN5bgB UnEGviRa6yrMlkoLzvAR5 wNTBpbjtwYWRk rB8wAEDnpNKaiBlyIC4dZ FVdjgygy246KkDkECK6CV ZcvDWdS6JtbC7zFqUzDKI hLNOqR9OweOHt ZUkrJ612YWyqBkC6MFDoe qRgY4ZvNOTgrFyzQeO3a1 C6Uk1nFMLIAMWtyfwckIG +DGUrREL6yVkr SRufLYDkpL8bBCOvN5g9H xInBlS9FVccW9VvPVMbhi kgOw40gX1sCjNuSgD2TBi eD0HnxwG4ARJr gJAnGSpmDPR5D60so3U1W CUsMKEsMQV7tUP7aS4rvD lnbjogbGVmdDsgdmVydGl wTBljFPsfP716 IHRvcDsnPkZlbWFsZTwvd GQ+QLGoXUC1vXnbQQhxBN DtfG8rRWFbI7o6QiNwToW 2DVphU5UpPIBb zpkzKe24nL1pJjBpYdK9J BamL3DhaxN1DOPfjDIcOM ewQOZ6G62cd6Q8LJHfZOB hOTK8rDB7mS9j bGlnbjogbGVmdDsgdmVyd YshJNudIHoqU421CZSlvL btJqukVrHYjh0bQG0wAzb vdGQ+BG37df94 U8VkYutxVps6QDXoLJT6i NI8tO3pNSZbYSbfi5P6wE E6Y8InmpMnzb7oy4jyVVN qVWfdN43rqZOk e1M0RNZljBD3CEIyeCztF uUxgM55Grs+PGNvbGdyb3 YhWeonm0brp9lklYn4VcC wJSIgdmFsaWdu TLC6c3SuJs94Q76oPSnnR HRoPSIzMCUiIHZhbGlnbj 9ltU7hRr1+GGFuvBN1vDH 3uY1uCvRvSeY2 XNnsJ192GeRnhUDvBwykf 4kwq0wtfEq5KiHhLVTmir NfbZmdAYZ9r1ZiDd44W8A biGyoj6UwWvr9 gi38pVFgf6F7rTC9B4HnI GCaqvuqnDMtcDbdUO0hWI KpufmfTDIyvC0pKCJuU0i 2OkYrUmN8KMvs I4UscbE4MSObcRYkPAMpc UEHuX4tlcora4terdwpBs BrYNCjDKi9RLk0EHZgvMv xRjYgMEW1PkZ8 LME8tJZanY7vsLvyvnjfh G9wOyc+URx0u1fpuEObRM 5bcVO8EB69KV68fUSgx5E 3tCV0V4AePPUd urwjnxhgpOE7TDFjKQObm O26Vs0rtSrvMe5jLUDqFN M9CLYueEBuA1UhmN3nDoZ oRUDjRNAuS5Xe xWChQSmnR480EFegCkQ5Z DHhmvWsK2IkYLSkiQqgPw Z2b2M5Yz3JAA66MY59WI9 5zSKrl0H8qSJ7 O2HgIBNabymkthtyjBS5R KWcBWMpbO51Wo8ljRlaZu 2uQDBcDVK7OXCqvBJyY6T aaY8vJlGuXPRq XJDhP7NkbZClMFcuV281F JxtDmU2AJZfjtPzU9JqRA NczLpzJqE2w8E7Fq9FTj4 5VJ92UZ46fKUm h3J1mLN9R5MwRYUwfvnvs nrnhUR9THFxAAXgmF06Dv 5wkHklMs8lGFCdKCO7EZR wsMPcZ3ZgwK4y PkNkKXYyRLDaB1PvsMLuW IfsY337SCphTfD0SCIqid UpG9UzNZRelJmuJpH8z6W 3Ys1BHVxiddm2 Y3KvAcewmJB+QH76NQOfR Y23oGHnhQEol9bfiFq7Rf QpHNAqFHN6bNumDOxwe8Y hGINmG44pfAHl c2U6 (more content not included)... Normal [facility] Patient Educationon 02-05-20 22 Patient Education Pharmacology Antibiotic Medicine, Adult Antibiotic [...] bacteria that does not respond to medicine (antibiotic-resistant infection) in the future. Antibiotics can cause [...] Trouble breathi (more content not included)... Normal [facility] Urology Office/Clinic Noteon 02-04-2022 Urology Office/Clinic Note Chief Complaint referred for recurrent UTI. HPI Staff Jessa is here today as a new patient referred by Herve [employer]HOLE [employer]DER for recurrent UTI.Started Cleocin 300mg on 12/24/21 [...] on Cleocin x 7d in Dec per BUDGET ANALYST. pt has not noticed any connection with [...] baths & hot tubs, avoid any scented BUDGET ANALYST products, urinate after sexual activity, etc) PVR [...] E&M of New Patient Moderate 45-59 Min 67062 Urnls Dip Stick Auto w/o Microscopy POC 19850 US Renal XR Abdomen 1 View Orders: [...] Protein Urine Dipstick: Negative (02/04/22 14:41:00) Specific [place] Urine Dipstick: 1.025 (02/04/22 14:41:00) Urine Appearance Urine Dipstick: (more content not included)... Normal [facility] Comment on above: Result Comment: Elec tronically Signed By: MEGHANN ABAD PA-C\.br\Date and Time Signed: 02/04/22 16:12 EDT Vital Signs Date Time Vital Sign Value Performing Clinician Facility 04-26-2024 14:17-0400 Body height 162.56 cm DO Devin Lam Work Phone: [facility] 04-26-2024 14:17-0400 Body mass index (BMI) [Ratio] 26.4 kg/m2 DO Devin Lam Work Phone: [facility] 04-26-2024 14:17-0400 Body weight 69.85 kg DO Devin Lam Work Phone: [facility] 04-26-2024 14:17-0400 Diastolic blood pressure 80 mm[Hg] DO Devin Lam Work Phone: [facility] 04-26-2024 14:17-0400 Heart rate 92 /min DO Devin Lam Work Phone: [facility] 04-26-2024 14:17-0400 Respiratory rate 16 /min DO Devin Lam Work Phone: [facility] 04-26-2024 14:17-0400 SaO2% (BldA) [Mass fraction] 95 % DO Devin Lam Work Phone: [facility] 04-26-2024 14:17-0400 Systolic blood pressure 116 mm[Hg] DO Devin Lam Work Phone: [facility] 06-25-2022 09:14-0400 Blood Pressure Location Jalen Mora [facility] 06-25-2022 09:14-0400 Diastolic blood pressure 86 mm[Hg] Jalen Mora [facility] 06-25-2022 09:14-0400 Heart rate 77 /min Jalen Mora [facility] 06-25-2022 09:14-0400 Systolic blood pressure 130 mm[Hg] Jalen Mora [facility] 06-18-2022 10:45-0400 Body height 162.56 cm Devin Lam Other [employer] Other 06-18-2022 10:45-0400 Body mass index (BMI) [Ratio] 28.49 kg/m2 Devin Lam Other [facility] [employer] Other 06-18-2022 10:45-0400 Body weight 75.3 kg Devin Lam Other [facility] [employer] Other 06-18-2022 10:45-0400 Diastolic blood pressure 76 mm[Hg] Devin Lam Other [facility] [employer] Other 06-18-2022 10:45-0400 Respiratory rate 16 /min Devin Lam Other [facility] [employer] Other 06-18-2022 10:45-0400 SaO2% (BldA) [Mass fraction] 99 % Devin Lam Other [facility] [employer] Other 06-18-2022 10:45-0400 Systolic blood pressure 118 mm[Hg] Devin Lam Other [employer] [employer] Other 05-13-2022 16:00-0400 Body height 162.56 cm Devin Lam Other [facility] [employer] Other 05-13-2022 16:00-0400 Body mass index (BMI) [Ratio] 29.73 kg/m2 Devin Lam Other [employer] [employer] Other 05-13-2022 16:00-0400 Body weight 78.56 kg Devin Lam Other [employer] [employer] Other 05-13-2022 16:00-0400 Diastolic blood pressure 68 mm[Hg] Devin Lam Other [employer] [employer] Other 05-13-2022 16:00-0400 Respiratory rate 16 /min Devin Lam Other [employer] [employer] Other 05-13-2022 16:00-0400 SaO2% (BldA) [Mass fraction] 97 % Devin Lam Other [employer] Other 05-13-2022 16:00-0400 Systolic blood pressure 114 mm[Hg] Devin Lam Other [employer] Other 04-16-2022 10:30-0400 Body height 162.56 cm Devin Lam Other [employer] Other 04-16-2022 10:30-0400 Body mass index (BMI) [Ratio] 30.72 kg/m2 Devin Lam Other [employer] Other 04-16-2022 10:30-0400 Body weight 81.19 kg Devin Lam Other [employer] Other 04-16-2022 10:30-0400 Diastolic blood pressure 80 mm[Hg] Devin Lam Other [employer] Other 04-16-2022 10:30-0400 Respiratory rate 16 /min Devin Lam Other [employer] Other 04-16-2022 10:30-0400 SaO2% (BldA) [Mass fraction] 99 % Devin Lam Other [employer] Other 04-16-2022 10:30-0400 Systolic blood pressure 130 mm[Hg] Devin Lam Other [employer] Other Encounters Encounter Date Encounter Type Care Provider Facility Start: 04-30-2024 End: 04-30-2024 Patient encounter procedure DO Devin Lam Work Phone: [facility] [place] Work Phone: Start: 04-30-2024 End: 04-30-2024 ambulatory DO Devin Lam Work Phone: [facility] Work Phone: Start: 04-26-2024 End: 04-26-2024 Patient encounter procedure DO Devin Lam Work Phone: [facility] [place] Work Phone: Start: 01-13-2024 End: 01-13-2024 ambulatory REY STANLEY Not Available Start: 12-09-2023 End: 12-09-2023 ambulatory GEOFFREY CAMPBELL Not Available Start: 12-03-2023 End: 12-03-2023 ambulatory DO Devin Lam Work Phone: [facility] Work Phone: Start: 12-03-2023 End: 12-03-2023 Departed Referred DO Devin Lam Work Phone: [facility] Start: 11-26-2023 End: 11-26-2023 ambulatory REY STANLEY Not Available Start: 11-16-2023 End: 11-16-2023 ambulatory REY STANLEY Not Available Start: 10-28-2023 End: 10-28-2023 ambulatory REY STANLEY Not Available Start: 10-23-2023 End: 10-23-2023 [facility] Start: 10-08-2023 End: 10-08-2023 ambulatory REY STANLEY Not Available Start: 09-23-2023 End: 09-23-2023 ambulatory REY STANLEY Not Available Start: 04-15-2023 End: 04-15-2023 ambulatory Devin Lam Other [employer] Other Start: 04-15-2023 Telephone encounter Devin Lam [facility] [place] Start: 01-19-2023 End: 01-19-2023 ambulatory Devin Lam Other [employer] Other Start: 01-19-2023 Telephone encounter [facility]in [facility] Start: 12-19-2022 End: 01-07-[address] REY ANGEL . Facility:[facility] Start: 12-05-2022 End: 12-06-[address] REY ANGEL . Facility:[facility] Start: 11-19-2022 End: 11-19-[address] REY ANGEL . Facility:[facility] Start: 11-16-2022 Encounter for preprocedural laboratory examination DR REY ANGEL . [facility] Start: 11-13-2022 End: 11-14-[address] REY ANGEL . Facility:[facility] Start: 11-13-2022 End: 11-14-2022 Encounter for preprocedural laboratory examination DR REY ANGEL . Facility:[facility] Start: 11-12-2022 End: 11-12-[address] REY ANGEL . Facility:[facility] Start: 11-12-2022 End: 11-13-[address] REY ANGEL . Facility: Start: 09-01-2022 End: 09-01-[address] REY ANGEL . Facility:[facility] Start: 07-30-2022 End: 07-30-[address] REY ANGEL . Facility: Start: 07-03-2022 End: 07-03-2022 Patient encounter procedure Dasia Addison [facility] Start: 06-25-2022 End: 06-25-2022 Patient encounter procedure Jalen Mora [facility] Start: 06-18-2022 End: 06-18-2022 ambulatory Devin Lam Other [employer] Other Start: 06-18-2022 Office outpatient vi sit 15 minutes Devin [facility] Start: 05-13-2022 End: 05-13-2022 ambulatory Devin Lam Other [facility] [facility] [employer] Other Start: 05-13-2022 Office outpatient vi sit 15 minutes Devin [facility] Start: 04-16-2022 End: 04-16-2022 ambulatory Devin Lam Other [employer] Other Start: 04-16-2022 Office outpatient vi sit 25 minutes Devin [facility] Start: 04-15-2022 End: 04-15-2022 Lab Drop off MEGHANN ABAD [facility] Start: 04-15-2022 End: 04-15-2022 Patient encounter procedure Kwadwo SAEZ [facility] Start: 03-06-2022 End: 03-06-2022 Lab Drop off Kwadwo SAEZ [facility] Start: 03-06-2022 End: 03-06-2022 Patient encounter procedure Ravinder Ayala GARRICK [facility] Start: 02-04-2022 End: 02-04-2022 Lab Drop off MEGHANN ABAD [facility] Procedures Date Procedure Procedure Detail Performing Clinician Start: 11-09-2013 Colonoscopy and biop sy of colon Kwadwo SAEZ Start: 11-09-1989 History of tonsillectomy Kwadwo SAEZ Start: 11-09-1989 Tonsillectomy MEGHANN ABAD Start: 11-09-1989 Tympanotomy MEGHANN WAKEFIELD H/O: section Hx of cesa rean section DO Devin Lam Work Phone: Immunizations Immunization Date Immunization Notes Care Provider Rao mckenzie 11-17-2023 RSV, bv, preFa and preFb, pf DO Devin Lam Work Phone: [facility] 10-13-2023 Influenza, injectable, Madin Wilton Canine Kidney, preservative free, quadrivalent DO Devin Lam Work Phone: [facility] 12-17-2021 COVID-19 Comirnaty (Pfizer) Tri-Sucrose 12+ DO Devin Lam Work Phone: [facility] 11-04-2021 COVID-19 mRNA, Comirnaty (Pfizer) DO Devin Lam Work Phone: [facility] 09-19-2021 influenza, injectable, quadrivalent, preservative free DO Devin Lam Work Phone: [facility] 09-09-2021 influenza, high dose seasonal, preservative-free DO Devin Lam Work Phone: [facility] 11-09-2020 SARS-CoV-2 mRNA (tozinameran 5y-11y) vaccine Jalen Mora [facility] Comment on above: Result Comment: 2 [facility] 09-09-2020 influenza, high dose seasonal, preservative-free DO Devin Lam Work Phone: [facility] 09-05-2020 influenza, high dose seasonal, preservative-free DO Devin Lam Work Phone: [facility] 08-22-2020 influenza, injectable, quadrivalent, preservative free DO Devin Lam Work Phone: [facility] 03-10-2015 tetanus toxoid, reduced diphtheria toxoid, and acellular pertussis vaccine, adsorbed Kwadwo SAEZ [facility] Comment on above: Reason for Medicatio n: Other (see comment) NEGATED: Highlighted row has not occurred!02-19-2019 influenza, seasonal, injectable Patient Objection Devin Lam Other [facility] Payers Date Payer Category Payer Self-pay [id number] 1985 Unknown [id number] 2.16.84 0.1.743846.3.579.2.593 1986 Unknown [id number] 2.16.84 0.1.752441.3.579.2.593 1986 Unknown [id number] 2.16.84 0.1.936814.3.579.2.593 1986 Unknown [id number] 2.16.84 0.1.209431.3.579.2.593 1986 Unknown [id number] 2.16.84 0.1.771349.3.579.2.593 1986 Unknown [id number] 2.16.84 0.1.535291.3.579.2.593 1986 Unknown [id number] 2.16.84 0.1.443259.3.579.2.593 1986 Unknown [id number] 2.16.84 0.1.511747.3.579.2.593 1986 Unknown [id number] 2.16.84 0.1.361086.3.579.2.1259 1986 Unknown [id number] 2.16.84 0.1.112354.3.579.2.1259 1986 Unknown [id number] 2.16.84 0.1.625432.3.579.2.1259 1986 Unknown [id number] 2.16.840 .1.425249.3.579.2.1259 1986 Unknown [id number] 2.16.840 .1.857584.3.579.2.1259 1986 Unknown [id number] 2.16.840 .1.521405.3.579.2.1259 1986 Unknown [id number] 2.16.840 .1.127884.3.579.2.1259 1959 Unknown [id number] 2.16. 840.1.267743.19 1959 Unknown [id number] Unknown [employer] [id number] Unknown [place] [id number] Unknown [id number] 2.16.8 40.1.544195.3.579.2.531 Unknown [id number] 2.16.8 40.1.763824.3.579.2.531 Social History Date Type Detail Facility Start: 02-04-2022 End: 04-26-2024 Tobacco smoking status Never smoked tobacco (finding) [facility] Tobacco smoking status Never [facility] Sex Assigned At Female [facility] Start: 1985 Sex Assigned At Female [facility] Functional Status Date Assessment Result Facility 06-25-2022 Functional Status N/A [facility] Clinical Notes 02-04-2022 to 04-26-2024 Note Date & Type Note Facility 04-26-2024 Evaluation note Authored April 26, 2024 2:08 pm The above note written by JOSLYN Warner acting as human recorder, note dictated by Dr. Devin Lam. [facility] Work Phone: [phone]) 468-612612-15-2023 NoteF/U with OB and [facility] medicine [facility]-2023 NoteUTP CARDIOLOGY PROGRESS NOTE HPI: Jessa Chatman is a 38 y.o. female here for tachycardia during Patient here per Dr. Angel for tachycardia in . She is currently 32w5d along. 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 Angel for tachycardia in . She is currently 32w5d along. MANHOLE BUILDER started her on metoprolol tartrate 25mg daily a few weeks ago, which as helped with palpitations. HR gets as high as 147 at rest sometimes. This issue went away after the of her last baby. Review of Systems Cardiovascular: Positive for dyspnea on exertion. Neurological: Positive for light-headedness. All other systems reviewed and are negative.[facility] 04-15-[facility] Evaluation note* Encounter Date Diagnosis Assessment Notes Treatment Notes Treatment Clinical Notes Apr, Spontaneous rupture of tympanic membrane of right ear concurrent with and due to acute suppurative otitis media (ICD-10 - H66.011) [employer] Other 01-11-2023 NoteOPERATIVE NOTE OPERATION DATE: 11/19/2022 PROCEDURE: Suction D AND C. PREOPERATIVE DIAGNOSIS: Missed first trimester. POSTOPERATIVE DIAGNOSIS: Missed first trimester. ANESTHESIA: General. SURGEON: Rey Angel D.O. INNER TUBE CUTTER: None. FINDINGS: Products of conception. SPECIMEN: Products [...] products of conception were removed using a 9-[place] Islander suction curette. Excellent hemostasis was noted. The patient tolerated the procedure well. Sponge, lap, and needle counts were correct x 2. All instruments were then removed from the patient's vagina. The patient was taken to the Recovery Room in stable condition. ??[id number] Evaluation + Plan note Diagnostic Tests Pending * UTI ([facility]) 07/03/22 [facility] [id number] Hospital Discharge instructions Patient Education 06/25/2022 10:01:43 [...] Follow these instructions at home: Medicines Take xddl-rrw-dehqxjc and prescription medicines only as told by [...] 10/26/2006 Document Revised: 03/13/2020 Document Reviewed: 03/13/2020 [employer] Patient Education 2020 [employer]. 06/25/2022 09:59:21 Urinary Tract Infection, Adult Urinary [...] Treatment for this condition includes: Antibiotic medicine. Eszo-gaz-cdaokhr medicines to treat discomfort. Drinking enough water [...] Follow these instructions at home: Medicines Take niwf-gmk-jfpyark and prescription medicines only as told by [...] 08/05/2006 Document Revised: 10/13/2019 Document Reviewed: 05/05/2019 [employer] Patient Education 2019 [employer]. [facility] 08-10-2022 Evaluation note* Encounter Date Diagnosis Assessment [...] that she can go off it completely. [employer] Other 07-05-2022 Evaluation note* Encounter Date Diagnosis [...] calf. I recommened a consult with a assistant plant controller. Patient would like to hold off on the referral for now. [employer] Other 06-08-2022 Evaluation note* Encounter Date Diagnosis [...] or any other dysrhythmias. She voices understanding [employer] Other [id number] Evaluation + Plan note Diagnostic Tests Pending * [facility] Future Appointments Appointment Date:07/02/2022 02:45:00 PM Scheduled Provider:Kwadwo SAEZ MD Location:[facility] Appointment Type:URO Office Visit [facility] Evaluation + Plan note Future Appointments Appointment Date:07/02/2022 02:45:00 PM Scheduled Provider:Kwadwo SAEZ MD Location:[facility] Appointment Type:URO Office Visit Diagnostic Tests Pending * [facility]rine [facility] Future Appointments Appointment Date:07/02/2022 02:45:00 PM Scheduled Provider:Kwadwo SAEZ MD Location:[facility] Appointment Type:URO Office Visit Diagnostic Tests Pending * [facility] noteNo InformationNort [facility] Other Evaluation noteNo assessment information available [facility] Work Phone: Hisqqyi general Narrative - Reported* Type Description Date Medical History Anxiety Hospitalization History childbirth 2014 [employer] Other Hospital course Narrative No data available [facility] this [facility] No data available for this section [facility] No data available for this section [facility] Summary Purpose Family History No Family History Records Found Relationship Condition Age at Onset Recorded Date/T ivana grandparent Unknown Advance Directives No Advanced Directives Records Found Advance Directive Response Recorded Date/ Time Advance Directives No December 3:10pm Advance Directive Response Recorded Date/ Time Advance Directives No December 4:10pm Reason for Referral Reason *FU 04/24 Diagnosis 1 Spontaneous rupture of tympanic membrane of right ear concurrent with and due to acute suppurative otitis media (H66.011) Referral Organization [facility] [place] Referring Provider First Name Devin Referring Provider Last Name Genaro Referring Provider Specialty Family Prac brittanie Referred Organization [facility] Referred Provider Luis MiguelAldo Referred Address ,[place], [place],[address] Referred Provider Specialty Otolaryngolo gy Referral Priority Routine General Notes Sheba Asher 023 12:56:47 PM >Received today. [facility] request us to send the referral and they will call and schedule patient. Referral was fax Clinical Notes Office [phone] Chief Complaint and Reason for Visit Chief Complaint follow up medication check E78.5 Reason for Visit Hyperlipidemia Mood swings Neoplasm of uncertain behavior of skin Additional Source Comments INFORMATION SOURCE (unrecogn ized section and content) DATE CREATED AUTHOR 02/26/2022 [facility] DATE CREATED AUTHOR AUTHOR'S ORGANIZ ATION 07/05/2022 Levy Jenkins [facility] DATE CREATED AUTHOR AUTHOR'S ORGANIZ ATION [facility]/21/2023 [facility] DATE CREATED AUTHOR AUTHOR'S ORGANIZ ATION 10/25/2023 [facility] DATE CREATED AUTHOR AUTHOR'S ORGANIZ ATION 01/14/[address] [facility] DATE CREATED AUTHOR AUTHOR'S ORGANIZ ATION 05/01/2024 [facility] y[facility] REASON FOR VISIT (unrecogniz ed section and content) weight management/ UTI4 week follow up-weight mgmt.1 month Follow up weight managementClinicalClinical Care Team (unrecognized sect ion and content) Team Status: Active Member Role Status Dates Devin Lam DO Primary Care Provider Active Team Status: Inactive Member Role Status Dates Devin Lam DO Primary Care Provider Active Sta rt: December 03, 2023 End: December 03, 2023 Rey Angel Attending Provider Active Start: [place] 2023 End: December 03, 2023 Team Status: Inactive Member Role Status Dates Devin Lam DO Primary Care Provide r, Attending Provider Active Start: April 26, 2024 End: April 26, 2024 Team Status: Inactive Member Role Status Dates Devin Lam , DO Primary Care Provide r, Attending Provider Active Start: April 30, 2024 End: April 30, 2024 Goals (unrecognized section and content) Goals may be documented in a n alternate section FOR RECORDS PERTAINING TO PATIENTS WHO ARE [...] BE BASED ON THE PRIMARY CLINICAL RECORDS. [employer] provides no warranty or guarantee of the accuracy or completeness of information in this document.
[2024-07-21 22:06] LABS: Age Gdln ACOG Testing Note (.); HPV Aptima Negative (Negative); IGP, Aptima HPV, rfx 16/18,45 Note (.)
== END 2024-07-18 20:27 | disposition home or self-care (01) ==
LOC: LAB 20:26
PROVIDERS: Visit Provider Obstetrics & Gynecology
DX: Z01.419 Encounter for gynecological examination (general) (routine) without abnormal findings (principal)
CPT/HCPCS: 87624; 88175